=== PATIENT | male | born 1960 | race Caucasian/White ===

== ENCOUNTER 2020-05-11 10:23 | Outpatient (REF) | payer OTHER, SELFPAY | END 2020-05-11 10:24 | disposition home or self-care (01) | LOC: HO.LAB 10:23 | PROVIDERS: Visit Provider Internal Medicine | DX: Z20.828 Contact with and (suspected) exposure to other viral communicable diseases (principal) | CPT/HCPCS: 87635 ==

== ENCOUNTER 2020-06-14 16:00 | Emergency (ER) | payer OTHER, SELFPAY ==
--- NOTE | 2020-06-14 08:04 | ECG_ITS ---
Test Reason : CHEST PAIN Blood Pressure : / mmHG Vent. Rate : 080 BPM Atrial Rate : 080 BPM P-R Int : 154 ms QRS Dur : 098 ms QT Int : 402 ms P-R-T Axes : 051 005 023 degrees QTc Int : 463 ms Normal sinus rhythm Normal ECG When compared with ECG of 13-MAR-2019 11:00, No significant change was found Referred By: Faisal Morgan Electronically Signed By:SORAYA RIGGS
[2020-06-14 16:06] VITALS: BP 126/78; PULSE 79; RESP 12; TEMP 36.8; O2SAT 94; BMI 27.8
--- NOTE | 2020-06-14 16:11 | PC.NURSE ---
EKG DONE AT 1607
--- NOTE | 2020-06-14 16:21 | ED.CHESTPAIN ---
HPI - Chest Pain General Chief Complaint: Chest Pain Stated Complaint: INTERMITTENT CP + SOB Time Seen by Provider: 06/14/20 16:21 History of Present Illness HPI narrative: 60-year-old male who presents to the emergency department for evaluation of chest pain and shortness of breath. Patient states he has been having chest pain for approximately 2 days. He points to his mid chest, left breast, left neck and left shoulder when asked to localize the pain. He states the pain is been constant for the past 2 days. He states that the pain is 9/10 at its worst. He has had associated shortness of breath and dyspnea on exertion. He denied fever, chills, cough. He states that he does have chronic back pain. He states that he had similar pain approximately 1 and half years prior was seen at [facility]. He states that he has followed up with a stripe matcher for this pain but does not know the etiology. Related Data Allergies Allergy/AdvReac Type Severity Reaction Status Date / Time No Known Allergies Allergy Verified 06/14/20 16:05 [No Known Allergies*] Review of Systems Review of Systems: Yes all other systems are reviewed and are negative Constitutional: Constitutional: Reports as per HPI Eyes: Eyes: Reports as per HPI ENT: Reports as per HPI Cardiovascular: Cardiovascular: Reports as per HPI Respiratory: Respiratory: Reports as per HPI Gastrointestinal: Gastrointestinal: Reports as per HPI Genitourinary: Genitourinary: Reports as per HPI Musculoskeletal: Musculoskeletal: Reports as per HPI Integumentary/Breasts: Skin/Breast: Reports as per HPI Neurologic: Reports as per HPI and Reports Abnormal speech present Psychiatric: Psychiatric: Reports as per HPI Allergic/Immunologic: Allergic/Immunologic: Reports as per HPI PMFSH Past Medical History Medical History Asthma Hypertension Social History Social History Smoking Status: Never smoker Use of substances other than those prescribed or required for medical reasons: No Advance Directives: No Advance Directives Information Provided: Yes Physical Exam Vital Signs: Vital Signs: Last Vital Signs Temp 98.2 F 06/14/20 16:06 Pulse 78 06/14/20 20:14 Resp 18 06/14/20 20:14 BP 131/85 06/14/20 20:14 Pulse Ox 98 06/14/20 20:14 Body Mass Index 27.8 Const: General: cooperative, no acute distress, alert and awake Orientation/consciousness: oriented to person and oriented to place Limitations: no limitations HENMT: Head: Yes normal to inspection, Yes normocephalic and Yes atraumatic Ears: external ears normal Face and sinus: Yes normal facial exam Mouth: Normal oral and palatal mucosa present Eyes: General: appearance normal, both eyes and all related structures Periorbital: periorbital findings normal Eyelids: Yes eyelids normal Conjunctivae: conjunctivae normal Sclerae: sclerae normal Corneas: corneas normal Pupils: Equal, round and reactive pupils present Direct Ophthalmoscopy: normal light reflex Neck: Neck: Yes normal visual inspection and Yes supple Lymphatic: no lymphadenopathy noted Chest: Chest palpation & inspection: normal inspection of the chest and other (Tenderness with palpation of the left chest) Resp: Effort & Inspection: normal respiratory effort, abnormal respiratory pattern, no audible wheezes and no respiratory distress Auscultation: clear to auscultation bilaterally, no crackles, no rales, no rhonchi and no wheezes Cardio: Rate: regular rate Rhythm: regular rhythm Heart sounds: S1 normal heart sound present, S2 normal heart sound present and Murmur heart sound present GI: Inspection: No distended Palpation (GI): Soft to palpation, nontender, no guarding and No hepatosplenomegaly present Auscultation: normal bowel sounds : General: Yes no CVA tenderness Back/Spine/Pelvis: Back: no CVA tenderness Skin: General skin exam: no rashes or lesions noted Lesions: no lesions Rashes: no rashes Wounds: no wounds Neuro: General: oriented to person and oriented to place Cranial nerves: Yes CN's II-XII intact bilaterally and Yes Equal, round and reactive pupils present Cognition (Neuro): normal cognition Speech: Abnormal speech present Motor exam (neuro): 5/5 motor strength present throughout Extrem: General: Yes normal to inspection, Yes full ROM, Yes no pedal edema and Yes no calf tenderness Psych: Appearance: grossly normal Mental Status: mental status grossly normal Speech and movement: Clear speech present Affect: normal affect Thought process: Normal thought process present Course Course Course Narrative: 60-year-old male with a history of hypertension hyperlipidemia, asthma, depression who presents to the emergency department for evaluation of 2 days of constant chest pain associated with shortness of breath and dyspnea on exertion. Physical examination did reveal tenderness with palpation of his chest wall otherwise was unremarkable. The patient's laboratory evaluation revealed a normal D-dimer. The patient had 2 troponins 3 hours apart which were not elevated. Chest x-ray revealed mild atelectasis but otherwise was unremarkable. The patient did have a negative COVID-19 test on 05/12/2020 therefore I doubt that this is related to the COVID-19 virus. The patient did receive Toradol 30 mg IV with complete resolution of his pain. While he was in the emergency department he did not complain of any recurrence of his pain. At this time I do not have a clear etiology for the patient's pain but given the fact that has been constant for 2 days with normal troponins I do not think that he has a cardiac cause. The pain is most likely musculoskeletal. The patient was advised to take ibuprofen and Tylenol for pain. He will need to follow-up with his doctor in 2 days for re-evaluation and I advised him to return emergency department if symptoms got worse or for development of symptoms that are concerning to him. MDM - Chest Pain Medical Records Data Attestation: I reviewed the patient's medical records. Lab Data Attestation: I reviewed the patient's lab results. Result diagrams: 06/14/20 17:34 06/14/20 17:34 Labs: Lab Results 06/14/20 06/14/20 06/14/20 Range/Units 17:34 17:34 17:34 WBC 7.3 (4.8-10.8) X10*3/uL RBC 4.59 L (4.60-5.80) X10*6/uL Hgb 13.8 L (14.0-18.0) g/dl Hct 40.6 L (42-52) % MCV 88.5 (80-98) fL MCH 30.1 (27.0-33.0) pg MCHC 34.0 (31.0-36.0) g/dl RDW 12.8 (11.0-16.0) % Plt Count 209 (160-400) X10*3/uL MPV 10.1 (9.4-12.4) fL Immature Gran % (Auto) 0.3 (0.0-0.4) % Neut % (Auto) 53.1 (45-73) % Lymph % (Auto) 25.4 (20-40) % [place] % (Auto) 14.7 H (2-11) % Eos % (Auto) 5.8 H (0-4) % Baso % (Auto) 0.7 (0-2) % Lymph # (Auto) 1.9 (1.2-4.9) X10*3/uL [place] # (Auto) 1.1 (0.1-1.2) X10*3/uL Eos # (Auto) 0.4 (0.0-0.4) X10*3/uL Baso # (Auto) 0.1 (0.0-0.2) X10*3/uL Abs Immat Gran (auto) 0.02 (0.00-0.03) X10*3/uL Absolute Neuts (auto) 3.9 (2.0-8.3) X10*3/uL Absolute Nucleated RBC 0.000 (0.0-0.012) X10*3/uL Nucleated RBC % (auto) 0.0 (0.0-0.2) /100WBC D-Dimer < 200 NG/ML Sodium 139 (135-145) mmol/L Potassium 3.4 (3.3-5.1) mmol/l Chloride 99 (96-108) mmol/L Carbon Dioxide 32 H (22-29) mmol/L Anion Gap 11 L (12-20) BUN 23 H (9-16) mg/dL Creatinine 0.94 (0.5-1.4) mg/dL Estim Creat Clear Calc 91.0 Estimated GFR > 60 Random Glucose 128 H (60-115) mg/dL Calcium 8.6 (8.4-10.2) mg/dL Total Bilirubin 0.6 (0.0-1.0) mg/dL Direct Bilirubin 0.2 (0.0-0.5) mg/dL AST 22 (5-37) U/L ALT 34 (0-40) U/L Alkaline Phosphatase 74 (39-117) U/L Troponin I High Sens (<3.5-35.0) ng/L Total Protein 6.8 (6.5-8.0) g/dL Albumin 4.0 (3.5-5.0) g/dL Lipase 20 (8-78) U/L Urine Color Urine Appearance Urine pH (5.0-8.0) Ur Specific [place] (1.005-1.025) Urine Protein (NEG-TRACE) MG/DL Urine Glucose (UA) (NEG) MG/DL Urine Ketones (NEG) MG/DL Urine Blood (NEG) Urine Nitrite (NEG) Ur Leukocyte Esterase (NEG) 06/14/20 06/14/20 06/14/20 Range/Units 17:34 20:18 20:23 WBC (4.8-10.8) X10*3/uL RBC (4.60-5.80) X10*6/uL Hgb (14.0-18.0) g/dl Hct (42-52) % MCV (80-98) fL MCH (27.0-33.0) pg MCHC (31.0-36.0) g/dl RDW (11.0-16.0) % Plt Count (160-400) X10*3/uL MPV (9.4-12.4) fL Immature Gran % (Auto) (0.0-0.4) % Neut % (Auto) (45-73) % Lymph % (Auto) (20-40) % [place] % (Auto) (2-11) % Eos % (Auto) (0-4) % Baso % (Auto) (0-2) % Lymph # (Auto) (1.2-4.9) X10*3/uL [place] # (Auto) (0.1-1.2) X10*3/uL Eos # (Auto) (0.0-0.4) X10*3/uL Baso # (Auto) (0.0-0.2) X10*3/uL Abs Immat Gran (auto) (0.00-0.03) X10*3/uL Absolute Neuts (auto) (2.0-8.3) X10*3/uL Absolute Nucleated RBC (0.0-0.012) X10*3/uL Nucleated RBC % (auto) (0.0-0.2) /100WBC D-Dimer NG/ML Sodium (135-145) mmol/L Potassium (3.3-5.1) mmol/l Chloride (96-108) mmol/L Carbon Dioxide (22-29) mmol/L Anion Gap (12-20) BUN (9-16) mg/dL Creatinine (0.5-1.4) mg/dL Estim Creat Clear Calc Estimated GFR Random Glucose (60-115) mg/dL Calcium (8.4-10.2) mg/dL Total Bilirubin (0.0-1.0) mg/dL Direct Bilirubin (0.0-0.5) mg/dL AST (5-37) U/L ALT (0-40) U/L Alkaline Phosphatase (39-117) U/L Troponin I High Sens 5.5 4.7 (<3.5-35.0) ng/L Total Protein (6.5-8.0) g/dL Albumin (3.5-5.0) g/dL Lipase (8-78) U/L Urine Color YELLOW Urine Appearance CLEAR Urine pH 6.0 (5.0-8.0) Ur Specific [place] 1.025 (1.005-1.025) Urine Protein NEG (NEG-TRACE) MG/DL Urine Glucose (UA) NEG (NEG) MG/DL Urine Ketones NEG (NEG) MG/DL Urine Blood NEG (NEG) Urine Nitrite NEG (NEG) Ur Leukocyte Esterase NEG (NEG) ECG Data ECG #1: Attestation: I personally reviewed and interpreted this ECG as follows: ECG interpretation date: 06/14/20 ECG interpretation time: 16:07 Prior ECG tracings: not available for review Interpretation: Normal sinus rhythm with a rate of 80, normal IA, QRS and QTC intervals, Q-wave in lead 3 and AVF, no ST segment elevation, less than [address] segment depression V4 through V6 Discharge Plan Discharge Clinical Impression: Atypical chest pain Patient Disposition: Home, Self-Care Instructions: Chest Wall Pain (ED) Additional Instructions: Your blood work and chest x-ray were normal. Take ibuprofen 200 mg pills, 2 pills every 6 hours as needed for pain. Take Tylenol 500 mg pills, 2 pills every 4-6 hours as needed for pain. Follow-up with your doctor in 2 days for re-evaluation. Please return to the emergency department if her symptoms get worse or if you develop any new symptoms that are concerning to you. Referrals: Chun Michel MD [Primary Care Provider] - 2 days
--- NOTE | 2020-06-14 17:00 | XR_ITS ---
EXAMINATION: XR CHEST CLINICAL INFORMATION: Bilateral chest pain, history of pneumothorax. COMPARISON: 03/13/2019 chest radiographs, chest CT dated 06/10/2019. TECHNIQUE: 2 views of the chest were obtained. FINDINGS: Mild linear markings are seen in the right mid field as well as the lung bases. Postsurgical changes are seen in the right lung as well. No definitive infiltrate or pleural effusion is seen. The heart and mediastinal structures are unremarkable. Multilevel healed right rib fractures are again noted. XR/XR chest 2V IMPRESSION: Mild linear atelectasis versus scarring bilaterally correlate with previous CT findings. No acute cardiopulmonary process.
[2020-06-14] MEDS: 0.9 % Sodium Chloride 1,000 ML 999 ML IVCONT (17:28)
[2020-06-14] MEDS: Ketorolac Tromethamine 30 MG/ML VIAL IVPUSH (17:28)
[2020-06-14 17:34] VITALS: BP 118/78; PULSE 75; RESP 16; O2SAT 94
[2020-06-14 17:40] LABS: MANUAL DIFF FLAG NO
[2020-06-14 17:44] LABS: Basophils Absolute Auto 0.1 X10*3/uL (0.0-0.2); Basophils Percent Auto 0.7 % (0-2); Eosinophils Absolute Auto 0.4 X10*3/uL (0.0-0.4); Eosinophils Percent Auto 5.8 % (0-4); Hematocrit 40.6 % (42-52); Hemoglobin 13.8 g/dl (14.0-18.0); Imm Gran Abs Auto 0.02 X10*3/uL (0.00-0.03); Imm Gran Pct Auto 0.3 % (0.0-0.4); Lymphocytes Absolute Auto 1.9 X10*3/uL (1.2-4.9); Lymphocytes Percent Auto 25.4 % (20-40); Mean Corpuscular Hemoglobin 30.1 pg (27.0-33.0); Mean Corpuscular Volume 88.5 fL (80-98); Mean Platelet Volume 10.1 fL (9.4-12.4); Monocytes Absolute Auto 1.1 X10*3/uL (0.1-1.2); Monocytes Percent Auto 14.7 % (2-11); Neutrophils Absolute Auto 3.9 X10*3/uL (2.0-8.3); Neutrophils Percent Auto 53.1 % (45-73); Platelet Count 209 X10*3/uL (160-400); Red Blood Count 4.59 X10*6/uL (4.60-5.80); Red Cell Distribution Width 12.8 % (11.0-16.0); White Blood Count 7.3 X10*3/uL (4.8-10.8)
[2020-06-14 17:52] LABS: D Dimer < 200 NG/ML
[2020-06-14 18:05] LABS: Alanine Aminotransferase 34 U/L (0-40); Alkaline Phosphatase 74 U/L (39-117); Anion Gap 11 (12-20); Aspartate Amino Transferase 22 U/L (5-37); Bilirubin Direct 0.2 mg/dL (0.0-0.5); Bilirubin Total 0.6 mg/dL (0.0-1.0); Blood Urea Nitrogen 23 mg/dL (9-16); Calcium 8.6 mg/dL (8.4-10.2); Carbon Dioxide 32 mmol/L (22-29); Chloride 99 mmol/L (96-108); Estimated Glomerular Filt Rate > 60; Glucose Random 128 mg/dL (60-115); Lipase 20 U/L (8-78); Potassium 3.4 mmol/l (3.3-5.1); Sodium 139 mmol/L (135-145); Total Protein 6.8 g/dL (6.5-8.0)
[2020-06-14 18:11] LABS: Troponin-I High Sensitivity 5.5 ng/L (<3.5-35.0)
[2020-06-14 20:14] VITALS: BP 131/85; PULSE 78; RESP 18; O2SAT 98
[2020-06-14 20:40] LABS: Glucose Urine UA NEG (NEG); Leukocyte Esterase Urine NEG (NEG); Nitrite Urine NEG (NEG); Specific Gravity - Urine 1.025 (1.005-1.025); Urine Blood NEG (NEG); Urine Ketones NEG (NEG); Urine Protein NEG (NEG-TRACE)
[2020-06-14 20:45] LABS: Appearance Urine CLEAR; Color Urine YELLOW
[2020-06-14 20:52] LABS: Troponin-I High Sensitivity 4.7 ng/L (<3.5-35.0)
== END 2020-06-14 21:37 | disposition home or self-care (01) ==
PROVIDERS: Emergency Provider Emergency Medicine Emergency Medical Services; PCP Internal Medicine
DX: R07.89 Other chest pain (principal); I10 Essential (primary) hypertension; J45.909 Unspecified asthma, uncomplicated
CPT/HCPCS: 36415; 71046; 80048; 80076; 81003; 83690; 84484; 85025; 85379; 93005; 96361; 96374; 99284; J1885

== ENCOUNTER → 2020-06-30 08:42 | Outpatient (BNVA) | payer OTHER, SELFPAY | PROVIDERS: PCP Internal Medicine; Visit Provider Nurse Practitioner | DX: Z13.89 Encounter for screening for other disorder (principal) | CPT/HCPCS: Q3014 ==

== ENCOUNTER 2020-07-18 10:02 | Outpatient (REF) | payer OTHER, SELFPAY ==
--- NOTE | 2020-07-18 | MR_ITS ---
EXAMINATION: MR LUMBAR SPINE WITHOUT AND WITH CONTRAST CLINICAL INFORMATION: Incontinence. Low back pain. COMPARISON: None TECHNIQUE: MRI of the lumbar spine was obtained using routine sequences with and without contrast. Intravenous contrast: Gadavist 8.5 mL FINDINGS: VERTEBRAL BODIES AND PARASPINAL STRUCTURES: There are chronic fatty marrow degenerative endplate changes, as on prior imaging. No compression fractures visible. Moderate loss of disc height evident at L5-S1 with disc desiccation. No suspicious abnormal enhancement is seen. There are minimal posterior subluxations at L3-L4 and L4-L5. The paraspinal soft tissues are unremarkable. CONUS MEDULLARIS AND CAUDA EQUINA: Normal, terminating at the level of L1. No lower cord signal abnormality is seen. The cauda equina nerve roots are normal. No pathologic intradural enhancement identified. There is no thickening or fatty infiltration of the filum terminale. SPINAL LEVELS: L1-L2: Minimal anterior disc bulge and endplate spurring which is stable. No central canal stenosis or foraminal narrowing. L2-L3: Well-hydrated normal appearance of the disc. Patent central canal and foramina. L3-L4: Mild retrosubluxation and stable central disc protrusion with mild impression upon the ventral thecal sac. No central canal stenosis. Underlying disc bulge without foraminal encroachment. L4-L5: Mild retrosubluxation and disc bulge again evident without central canal stenosis. Mild left foraminal narrowing. Epidural lipomatosis at the L4-L5 level continues to [id number] distort the thecal sac. L5-S1: Moderate loss of disc height with degenerative endplate changes. Diffuse disc bulge and facet arthropathy without central canal stenosis. Stable [id number] foraminal narrowing with bulging disc and endplate spurring contacting the extraforaminal L5 nerve roots. Epidural lipomatosis again evident. Engorgement of the ventral epidural basivertebral venous plexus also again evident with impression upon the thecal sac. MR/MR lumbar spine wo/w con IMPRESSION: Stable moderate disc degeneration at L5-S1. Engorgement of the ventral epidural venous plexus mildly impresses upon the thecal sac, as on prior imaging. Epidural lipomatosis also continues to moderately distort the thecal sac. Moderate foraminal narrowing with endplate spurring and bulging disc abutting the extraforaminal L5 nerve roots. Stable retrosubluxation and central disc protrusion at L3-L4. Milder degenerative changes at remaining levels.
== END 2020-07-18 10:03 | disposition home or self-care (01) ==
LOC: HO.MRI 10:02
PROVIDERS: Visit Provider Internal Medicine
DX: M54.5 Low back pain (principal); N39.490 Overflow incontinence; R15.9 Full incontinence of feces
CPT/HCPCS: 72158; A9585

== ENCOUNTER 2020-07-27 10:46 | Day surgery (SDC) | payer OTHER, SELFPAY ==
[2020-07-25 10:38] VITALS: BMI 26.5
--- NOTE | 2020-07-26 08:50 | HO.ANESPROP2 ---
Documented by User: Tammi Gaxiola 07/26/20 08:56 HPI - Anesthesia Eval Consult details Narrative: 60yo M for Colonoscopy [facility], [facility] Past Medical History Medical History (Updated 07/26/20 @ 08:51 by Tammi Gaxiola) Anxiety Arthritis Asthma Back pain Bipolar 1 disorder Depression Diabetes Elevated cholesterol GERD (gastroesophageal reflux disease) Hypertension Tension pneumothorax, spontaneous Surgical History Surgical History (Updated 07/25/20 @ 10:37 by Verna Santana) History of lung surgery Hx of colonoscopy Hx of hernia repair Hx of tracheostomy Social History Social History (Updated 07/25/20 @ 10:38 by Verna Santana) Smoking Status: Never smoker Advance Directives: No Advance Directives Information Provided: No Advance Directives on File: No Meds Allergies Allergy/AdvReac Type Severity Reaction Status Date / Time No Known Allergies Allergy Verified 07/25/20 10:29 [No Known Allergies*] Home Medications Medication Instructions Recorded Confirmed Type albuterol sulfate 1 amp INHALATION TID PRN 07/25/20 07/25/20 History albuterol sulfate 2 puff PO Q4-6H PRN 07/25/20 07/25/20 History amitriptyline 1 tab PO BEDTIME 07/25/20 07/25/20 History aspirin 1 tab PO QAM 07/25/20 07/25/20 History atorvastatin 1 tab PO BEDTIME 07/25/20 07/25/20 History duloxetine 1 cap PO QAM 07/25/20 07/25/20 History fluticasone propion-salmeterol 1 puff INHALATION BID 07/25/20 07/25/20 History gabapentin 1 tab PO BID 07/25/20 07/25/20 History hydrochlorothiazide 1 tab PO QAM 07/25/20 07/25/20 History losartan 1 tab PO DAILY 07/25/20 07/27/20 History omeprazole 1 cap PO BID 07/25/20 07/25/20 History sildenafil [Viagra] 1 tab PO DAILY PRN 07/25/20 07/25/20 History tramadol 1 tab PO Q8H PRN 07/25/20 07/25/20 History umeclidinium [Incruse Ellipta] 1 puff PO DAILY 07/25/20 07/25/20 History Exam Exam Date and Time: July 26, 2020 0850 Height,Weight and Vital Signs: Height 5 ft 10 in Weight 83.915 kg Narrative Narrative: 06/14/20 XR chest 2V IMPRESSION: Mild linear atelectasis versus scarring bilaterally correlate with previous CT findings. No acute cardiopulmonary process.. EKG 06/14/20: NSR Assessment and Plan Assessment Anesthesia Assessment: Chart Reviewed Documented by User: Marni Nuñez 07/27/20 12:11 PMF Past Medical History Medical History (Updated 07/26/20 @ 08:51 by Tammi Gaxiola) Anxiety Arthritis Asthma Back pain Bipolar 1 disorder Depression Diabetes Elevated cholesterol GERD (gastroesophageal reflux disease) Hypertension Tension pneumothorax, spontaneous Family History Family history of problems with anesthesia: No Surgical History Surgical History (Updated 07/25/20 @ 10:37 by Verna Santana) History of lung surgery Hx of colonoscopy Hx of hernia repair Hx of tracheostomy History of Problems with Anesthesia: No Social History Social History (Updated 07/25/20 @ 10:38 by Verna Santana) Smoking Status: Never smoker Advance Directives: No Advance Directives Information Provided: No Advance Directives on File: No Meds Allergies Allergy/AdvReac Type Severity Reaction Status Date / Time No Known Allergies Allergy Verified 07/25/20 10:29 [No Known Allergies*] Home Medications Medication Instructions Recorded Confirmed Type albuterol sulfate 1 amp INHALATION TID PRN 07/25/20 07/25/20 History albuterol sulfate 2 puff PO Q4-6H PRN 07/25/20 07/25/20 History amitriptyline 1 tab PO BEDTIME 07/25/20 07/25/20 History aspirin 1 tab PO QAM 07/25/20 07/25/20 History atorvastatin 1 tab PO BEDTIME 07/25/20 07/25/20 History duloxetine 1 cap PO QAM 07/25/20 07/25/20 History fluticasone propion-salmeterol 1 puff INHALATION BID 07/25/20 07/25/20 History gabapentin 1 tab PO BID 07/25/20 07/25/20 History hydrochlorothiazide 1 tab PO QAM 07/25/20 07/25/20 History losartan 1 tab PO DAILY 07/25/20 07/27/20 History omeprazole 1 cap PO BID 07/25/20 07/25/20 History sildenafil [Viagra] 1 tab PO DAILY PRN 07/25/20 07/25/20 History tramadol 1 tab PO Q8H PRN 07/25/20 07/25/20 History umeclidinium [Incruse Ellipta] 1 puff PO DAILY 07/25/20 07/25/20 History Exam Height,Weight and Vital Signs: Vital Signs Temp Pulse Resp BP Pulse Ox 07/27/20 11:09 98.8 F 102 H 16 166/97 H 96 Pertinent Lab Results Pertinent Lab Results: Lab Results 07/27/20 Range/Units 11:18 POC Glucose 123 H (60-115) mg/dL Airway Mallampati Class: III TM Dist: >3cm Neck ROM: Full Partial: Upper Heart: RRR Lungs: CTAB Assessment and Plan Assessment Anesthesia Assessment: Anesthesia Plan Discussed and Chart Reviewed Final Anesthetic Review NPO: Yes ASA Class: II Final Preanesthetic Review: No Changes in Pt Med Stat, Meds/Allgs Chart Reviewed, Consent Obtained/Reviewed and Anes Risks/Benef Reviewed Patient Risk: Intermediate Procedure Risk: Low Assessment/Block/Sedation in SS: Assess/Block/Sedation-SS Anesthetic Plan Anesthetic Plan: MAC: Disposition: Standard PACU
[2020-07-27 11:09] VITALS: BP 166/97; PULSE 102; RESP 16; TEMP 37.1; O2SAT 96
[2020-07-27 11:23] LABS: Glucose, Whole Blood 123 mg/dL (60-115)
[2020-07-27] MEDS: Lactated Ringers 1,000 ML 100 ML IVCONT (11:29)
--- NOTE | 2020-07-27 11:56 | MHC.SHP ---
Pre-Procedural Eval Section B Chief Complaint: full incontinence of feces Relevant Family History (Specify if Yes): No Relevant Social History: None Present Medications: see Short Stay Collaborative assessment Medical History: Significant History (Anxiety Arthritis Asthma Back pain Bipolar 1 disorder Depression Diabetes Elevated cholesterol GERD (gastroesophageal reflux disease) Hypertension Tension pneumothorax, spontaneous) History of Previous Operations: Relevant previous surgery/procedure and date(s) (History of lung surgery Hx of colonoscopy Hx of hernia repair Hx of tracheostomy) Allergies: Allergies Allergy/AdvReac Type Severity Reaction Status Date / Time No Known Allergies Allergy Verified 07/25/20 10:29 [No Known Allergies*] Review of Systems Sugical H&P ROS: Negative: Constitution, Cardiovascular, Respiratory, Neurological, Psychiatric, Hem-Onc, Allergic/Immunologic, Gastrointestinal, Genitourinary, Musculoskeletal, Integumentary, Endocrine and Eyes/Ears/Nose/Throat Exam Surgical H&P Exam: Normal: HEENT, Normal: Heart, Normal: Lungs, Normal: Extremities, Normal: Abdomen, Normal: Skin and Normal: Neurological Plan Diagnosis/Plan: Unchanged I have reviewed the history and physical and performed a pertinent physical examination on my patient. No changes have occurred unless specified.
--- NOTE | 2020-07-27 11:56 | PM.OP ---
Brief Operative Note Date of Service: 07/27/20 Pre-op diagnosis: fecal incontinence Post-op diagnosis: same Procedure: see op note Surgeon: David Brown MD Anesthesia: MAC Estimated blood loss (mL): 0 Condition: stable Disposition: PACU
--- NOTE | 2020-07-27 11:57 | W.PM.OPN ---
Operative Note Operative Note Date of Service: 07/27/20 Narrative: Operative Information Procedure Description: Colonoscopy COLONOSCOPY Instrument: Olympus variable stiffness adult scope 190L Colonoscopy Monitoring: Vital signs and clinical assessment, continuous EKG monitoring, Pulse oximetry, Carbon Dioxide monitoring and blood pressure monitoring were done throughout the procedure. Colon withdrawal time was 13 minutes. Procedure: The patient was placed in the left lateral decubitis position and pre-procedure medications were administered. After a digital rectal examination of the ano-rectum, the video colonoscope was inserted into the rectum and advanced through the colon to the cecum/TI. The colonoscope was slowly withdrawn in a retrograde panoramic fashion and the colon mucosa was carefully examined including a retroflexed view of the rectum. Findings and interventions are described below. Procedure Difficulty:easy Findings: RECTAL exam: slightly lax anal tone, good push but squeeze reduced, prostate was enlarged but smooth to palpation. Terminal Ileum-normal Cecum:normal Ascending Colon: normal Transverse Colon -normal Descending Colon:normal Sigmoid Colon: normal Rectum: Retroflexion with small internal hemorrhoids, grade I, x 3sessile polyps, removed with forceps 4-6 mm, another polyp about 8-10 mm with velvety appearance removed with cold snare Anorectum - normal Colon preparation: [place] Bowel Preparation Scale Right colon; 2 Transverse colon: 3 Left colon; 3 (0 = Unprepared colon segment with mucosa not seen due to solid stool that cannot be cleared. 1 = Portion of mucosa of the colon segment seen, but other areas of the colon segment not well seen due to staining, residual stool and/or opaque liquid. 2 = Minor amount of residual staining, small fragments of stool and/or opaque liquid, but mucosa of colon segment seen well. 3 = Entire mucosa of colon segment seen well with no residual staining, small fragments of stool or opaque liquid) Impression and Post Procedure Diagnosis: polyps internal hemorrhoids Plan: High fiber diet leaflet Avoid straining at stool, epsom salts and sitz bath, anusol supps or cream Repeat Colonoscopy in 5 years if adenomatous, 10 yrs if hyperplastic or earlier if clinically indicated refer [facility] colorectal surgery for consideration of spinal stimulator and manometry testing Above findings were reviewed with the patient and relevant handouts were provided if indicated.
[2020-07-27 12:45] VITALS: BP 115/78; PULSE 80; RESP 16; TEMP 36.2; O2SAT 98
[2020-07-27 13:00] VITALS: BP 138/99; PULSE 78; RESP 17; TEMP 36.4; O2SAT 99
--- NOTE | 2020-07-27 13:34 | HO.POSTANES ---
Post Anesthesia Evaluation Post Anesthesia Evaluation Vital Signs: Vital Signs Temp Pulse Resp BP Pulse Ox 07/27/20 13:00 97.5 F 78 17 138/99 H 99 07/27/20 12:45 97.2 F 80 16 115/78 98 07/27/20 11:09 98.8 F 102 H 16 166/97 H 96 Anesthesia: Monitored Mental Status: Awake Pain Control: Satisfactory Nausea/Vomiting: None Hydration: Adequate Anesthesia-Related Issues: No Anes. Related Issues
== END 2020-07-27 13:29 | disposition home or self-care (01) ==
PROVIDERS: PCP Internal Medicine; Visit Provider Internal Medicine Gastroenterology
PROC: 0DJD8ZZ Inspection of Lower Intestinal Tract, Via Natural or Artificial Opening Endoscopic (ICD-10-PCS; CPT 45378; principal; 2020-07-27 12:10)
DX: R15.9 Full incontinence of feces (principal); Z86.010 Personal history of colon polyps; Z80.0 Family history of malignant neoplasm of digestive organs; D12.8 Benign neoplasm of rectum; K62.1 Rectal polyp; K64.0 First degree hemorrhoids; N40.0 Benign prostatic hyperplasia without lower urinary tract symptoms; Z80.42 Family history of malignant neoplasm of prostate; K21.9 Gastro-esophageal reflux disease without esophagitis; I10 Essential (primary) hypertension; E11.9 Type 2 diabetes mellitus without complications; F31.9 Bipolar disorder, unspecified; J45.909 Unspecified asthma, uncomplicated; Z79.51 Long term (current) use of inhaled steroids; Z79.899 Other long term (current) drug therapy
CPT/HCPCS: 45385; 45380; 82947; 88305

== ENCOUNTER → 2020-07-29 12:49 | Outpatient (BNVA) | payer OTHER, SELFPAY | PROVIDERS: PCP Internal Medicine; Visit Provider Urology | DX: N40.1 Benign prostatic hyperplasia with lower urinary tract symptoms (principal); R35.1 Nocturia | CPT/HCPCS: 99202 ==

== ENCOUNTER → 2020-08-17 11:22 | Outpatient (BNVA) | payer OTHER, SELFPAY | PROVIDERS: PCP Internal Medicine; Visit Provider Nurse Practitioner | DX: Z13.89 Encounter for screening for other disorder (principal) | CPT/HCPCS: Q3014 ==

== ENCOUNTER 2020-09-01 12:20 | Outpatient (REF) | payer OTHER, SELFPAY | END 2020-09-01 12:21 | disposition home or self-care (01) | LOC: HO.LAB 12:20 | PROVIDERS: Visit Provider Internal Medicine | DX: Z20.822 Contact with and (suspected) exposure to COVID-19 (principal) | CPT/HCPCS: 36415; C9803; U0003; U0005 ==

== ENCOUNTER → 2020-09-23 15:27 | Outpatient (BNVA) | payer OTHER, SELFPAY | PROVIDERS: Visit Provider Urology | DX: Z13.89 Encounter for screening for other disorder (principal) | CPT/HCPCS: Q3014 ==

== ENCOUNTER → 2021-02-16 15:01 | Outpatient (BNVA) | payer OTHER, SELFPAY | PROVIDERS: PCP Internal Medicine; Visit Provider Nurse Practitioner | DX: K58.9 Irritable bowel syndrome, unspecified (principal); R15.9 Full incontinence of feces; D12.6 Benign neoplasm of colon, unspecified | CPT/HCPCS: Q3014 ==

== ENCOUNTER 2021-03-27 22:51 | Inpatient (IN) | payer OTHER, SELFPAY ==
--- NOTE | ~2021-03-27 | CT_ITS ---
EXAMINATION: NONCONTRAST HEAD CT NONCONTRAST CERVICAL SPINE CT INDICATION INFORMATION: Fall COMPARISON: 02/24/2019 TECHNIQUE: Separate noncontrast CT examinations of the head and cervical spine were performed. Coronal head CT images and coronal and sagittal cervical spine images were created at the technologist workstation. DLP: 1372 mGy-cm DOSE LOWERING TECHNIQUES: This CT examination was performed using dose optimization techniques as appropriate, variously including the following: - Automated exposure control - Adjustment of mA and/or kV according to patient size (this includes techniques or standardized protocols for targeted exams were dose is matched to indication/reason for exam; i.e. extremities or head) - Use of iterative reconstruction technique FINDINGS: Head: There is no evidence of acute intracranial hemorrhage or territorial infarction. No abnormal mass-effect or midline shift is seen. Deng to white matter differentiation is well preserved. No extra-axial fluid collections are identified. The ventricles are normal in size. Redemonstrated chronic lacunar infarct in the left basal ganglia. The osseous structures and soft tissues are normal. The mastoid air cells and visualized portions of the paranasal sinuses are well-aerated. Cervical spine: There is anatomic alignment of the vertebral bodies and posterior elements. Vertebral body heights are maintained. There is mild to moderate disc space narrowing throughout the cervical spine. Prominent disc osteophyte complexes are noted at C3-C4 and C4-C5. There is multilevel endplate irregularity and osteophyte formation. Scattered moderate facet arthropathy noted. No evidence of acute fracture. No prevertebral soft tissue swelling. There is emphysema the right lung apex. The thyroid gland is unremarkable. CT/CT cervical spine wo con IMPRESSION: 1. No acute findings identified in the head or cervical spine. 2. Degenerative changes of the cervical spine as described above.
--- NOTE | ~2021-03-27 | US_ITS ---
EXAMINATION: US EXTRACRANIAL CAROTID DUPLEX, BILATERAL CLINICAL INFORMATION: Syncope COMPARISON: None TECHNIQUE: Real-time ultrasound and Doppler techniques (integrating B-mode 2-D vascular images, Doppler spectral analysis and color-flow Doppler imaging) were utilized to interrogate the extracranial carotid arteries, the vertebral arteries and proximal subclavian arteries bilaterally. The degree of stenosis is determined by criteria similar to NASCET. FINDINGS: Right Side: 1. There is no significant atherosclerotic plaque seen in the bifurcation/proximal ICA region. 2. The common carotid artery PSV proximally is 71 cm/s and distally 82 cm/s. 3. The proximal internal carotid artery velocities are 67 cm/s systolic and 30 cm/s diastolic. 4. The proximal external carotid artery PSV is 98 cm/s. 5. The vertebral artery shows antegrade flow. 6. The subclavian artery waveforms are normal. Left Side: 1. There is no significant atherosclerotic plaque seen in the bifurcation/proximal ICA region. 2. The common carotid artery PSV proximally is 79 cm/s and distally 82 cm/s. 3. The proximal internal carotid artery velocities are 84 cm/s systolic and 38 cm/s diastolic. 4. The proximal external carotid artery PSV is 92 cm/s. 5. The vertebral artery shows antegrade flow. 6. The subclavian artery waveforms are normal. US/US carotid duplex BI IMPRESSION: 1. RIGHT: Normal right internal carotid artery without atherosclerotic plaque or hemodynamically significant stenosis. 2. LEFT: Normal left internal carotid artery without atherosclerotic plaque or hemodynamically significant stenosis.
[2021-03-27 23:17] VITALS: BP 90/50; PULSE 100; PULSE 105; RESP 20; TEMP 37; O2SAT 97; BMI 27.2
[2021-03-27] MEDS: 0.9 % Sodium Chloride 1,000 ML 999 ML IV (23:55)
--- NOTE | 2021-03-27 23:55 | ECG_ITS ---
Test Reason : FALL Blood Pressure : / mmHG Vent. Rate : 083 BPM Atrial Rate : 083 BPM P-R Int : 160 ms QRS Dur : 096 ms QT Int : 402 ms P-R-T Axes : 065 021 039 degrees QTc Int : 472 ms Normal sinus rhythm Normal ECG When compared with ECG of 14-JUN-2020 16:07, No significant change was found Referred By: Nain Morales Electronically Signed By:DAVE GOODEN
--- NOTE | 2021-03-27 23:57 | ED.GENADULT ---
HPI - General Adult General Chief complaint: Fall Stated complaint: fall ? syncope Time Seen by Provider: 03/27/21 23:38 Source: patient Mode of arrival: ambulatory Limitations: no limitations History of Present Illness HPI narrative: Patient presents to ED with for a syncopal episode. Patient states he was walking to the to the kitchen to drink water. Patient states when he released the Fridge and took the water he woke up and he was on the floor. Patient states this has never happened before. Patient denies having any headache, chest pain, shortness of breath, abdominal pain before falling to the ground. Patient states compliant with his medications. Patient denies taking any extra of his meds. Related Data Home Medications Medication Instructions Recorded Confirmed albuterol sulfate 1 amp INHALATION TID PRN 07/25/20 07/25/20 albuterol sulfate 90 mcg/actuation 2 puff PO Q4-6H PRN 07/25/20 07/25/20 aerosol inhaler amitriptyline 100 mg tablet 1 tab PO BEDTIME 07/25/20 07/25/20 aspirin 81 mg tablet,delayed 1 tab PO QAM 07/25/20 07/25/20 release atorvastatin 40 mg tablet 1 tab PO BEDTIME 07/25/20 07/25/20 duloxetine 30 mg capsule,delayed 1 cap PO QAM 07/25/20 07/25/20 release fluticasone 250 mcg-salmeterol 50 1 puff INHALATION BID 07/25/20 07/25/20 mcg/dose blistr powdr for inhalation gabapentin 800 mg tablet 1 tab PO BID 07/25/20 07/25/20 hydrochlorothiazide 12.5 mg tablet 1 tab PO QAM 07/25/20 07/25/20 losartan 50 mg tablet 1 tab PO DAILY 07/25/20 07/27/20 omeprazole 40 mg capsule,delayed 1 cap PO BID 07/25/20 07/25/20 release sildenafil 100 mg tablet (Viagra) 1 tab PO DAILY PRN 07/25/20 07/25/20 tramadol 50 mg tablet 1 tab PO Q8H PRN 07/25/20 07/25/20 umeclidinium 62.5 mcg/actuation 1 puff PO DAILY 07/25/20 07/25/20 blister powder for inhalation (Incruse Ellipta) Previous Rx's Medication Instructions Recorded terazosin 5 mg capsule 5 mg PO BEDTIME 90 Days #90 cap 09/23/20 dicyclomine 20 mg tablet 20 mg PO QID 30 Days #120 tab 02/16/21 Allergies Allergy/AdvReac Type Severity Reaction Status Date / Time No Known Allergies Allergy Verified 02/16/21 15:03 [No Known Allergies*] Review of Systems Review of Systems: Yes all other systems are reviewed and are negative Constitutional: Constitutional: Reports as per HPI and Reports no additional constitutional complaints Eyes: Eyes: Reports as per HPI and Reports no additional eye complaints ENT: Reports system reviewed and no additional complaints, except as documented and Reports as per HPI Cardiovascular: Cardiovascular: Reports as per HPI and Reports no additional cardiovascular complaints Comments: Syncope Respiratory: Respiratory: Reports as per HPI and Reports no additional respiratory complaints Gastrointestinal: Gastrointestinal: Reports as per HPI and Reports no additional gastrointestinal complaints Genitourinary: Genitourinary: Reports no additional male genitourinary complaints and Reports as per HPI Musculoskeletal: Musculoskeletal: Reports no additional musculoskeletal complaints and Reports as per HPI Integumentary/Breasts: Skin/Breast: Reports system reviewed and no additional complaints, except as docu and Reports as per HPI Neurologic: Reports system reviewed and no additional complaints, except as documented and Reports as per HPI Psychiatric: Psychiatric: Reports no additional psychiatric complaints and Reports as per HPI PMF Past Medical History Medical History (Updated 03/28/21 @ 02:55 by INDIA Ahn) Anxiety Arthritis Asthma Back pain Bipolar 1 disorder Depression Diabetes Elevated cholesterol GERD (gastroesophageal reflux disease) Hypertension Tension pneumothorax, spontaneous Surgical History History of lung surgery Hx of colonoscopy Hx of hernia repair Hx of tracheostomy Family History Family History Mother Stomach cancer Brother Prostate cancer Brother Prostate cancer Social History Social History Alcohol intake: current Alcohol intake frequency: a few times a month Advance Directives: No Physical Exam Vital Signs: Vital Signs: Last Vital Signs Temp 98.6 F 03/27/21 23:17 Pulse 81 03/28/21 02:47 Resp 16 03/28/21 02:47 BP 134/90 H 03/28/21 02:47 Pulse Ox 96 03/28/21 02:47 Body Mass Index 27.2 Const: General: cooperative, healthy appearing, comfortable, no acute distress, well developed, alert and awake Orientation/consciousness: patient oriented x3 HENMT: Head: Yes normal to inspection, Yes No palpable skull fracture present, Yes normocephalic, Yes atraumatic and No abrasion Eyes: General: appearance normal, both eyes and all related structures Neck: Neck: Yes normal visual inspection, Yes full ROM, Yes no lymphadenopathy, Yes no meningeal signs, Yes trachea midline, Yes supple and No tender Chest: Chest palpation & inspection: normal inspection of the chest and normal palpation of entire chest wall Resp: Effort & Inspection: normal respiratory effort and able to speak in complete sentences Auscultation: clear to auscultation bilaterally Cardio: Jugular venous distension: no JVD Heart sounds: S1 normal heart sound present and S2 normal heart sound present GI: Inspection: Yes normal to inspection and No abdominal wall ecchymosis Palpation (GI): Soft to palpation, not firm, nontender, no guarding and not rigid : General: No CVA tenderness and Yes no CVA tenderness Back/Spine/Pelvis: Back: no CVA tenderness, No CVA tenderness and No back tenderness Skin: General skin exam: no rashes or lesions noted and elasticity normal Neuro: General: patient oriented x3, gait normal, no meningeal signs and CN's II-XI intact bilaterally Cranial nerves: Yes CN's II-XII intact bilaterally Extrem: General: Yes normal to inspection and Yes full ROM Psych: Appearance: grossly normal, well kempt and not disheveled Course Course Course Narrative: Patient history and physical exam indicates syncope. Patient have medical evaluation. Patient had EKG, labs, orthostatics ordered. Fluids ordered. Patient have head and CT scan ordered. Patient is in neck collar. Reevaluation(s) Reevaluation #1: EKG negative STEMI. Patient to be admitted for REJI syncope. Presently creatinine is elevated patient is in REJI. Patient have COVID swab. Orthostatics negative. Negative for any neuro deficits Time: 14:54 Medical Decision Making MDM Narrative Medical decision making narrative: Syncope. REJI Lab Data Result diagrams: 03/28/21 01:37 03/28/21 01:37 Labs: Lab Results 03/28/21 03/28/21 03/28/21 Range/Units 01:37 01:37 01:37 WBC 10.2 (4.8-10.8) X10*3/uL RBC 4.49 L (4.60-5.80) X10*6/uL Hgb 13.4 L (14.0-18.0) g/dl Hct 39.3 L (42-52) % MCV 87.5 (80-98) fL MCH 29.8 (27.0-33.0) pg MCHC 34.1 (31.0-36.0) g/dl RDW 12.8 (11.0-16.0) % Plt Count 239 (160-400) X10*3/uL MPV 9.9 (9.4-12.4) fL Immature Gran % (Auto) 0.3 (0.0-0.4) % Neut % (Auto) 73.2 H (45-73) % Lymph % (Auto) 13.2 L (20-40) % [place] % (Auto) 11.0 (2-11) % Eos % (Auto) 2.0 (0-4) % Baso % (Auto) 0.3 (0-2) % Lymph # (Auto) 1.3 (1.2-4.9) X10*3/uL [place] # (Auto) 1.1 (0.1-1.2) X10*3/uL Eos # (Auto) 0.2 (0.0-0.4) X10*3/uL Baso # (Auto) 0.0 (0.0-0.2) X10*3/uL Abs Immat Gran (auto) 0.03 (0.00-0.03) X10*3/uL Absolute Neuts (auto) 7.5 (2.0-8.3) X10*3/uL Absolute Nucleated RBC 0.000 (0.0-0.012) X10*3/uL Nucleated RBC % (auto) 0.0 (0.0-0.2) /100WBC PT 10.4 (9.9-13.0) SEC INR 0.9 (0.9-1.1) APTT 32.3 (24.1-38.0) SEC Sodium 138 (135-145) mmol/L Potassium 3.6 (3.3-5.1) mmol/L Chloride 100 (96-108) mmol/L Carbon Dioxide 30 H (22-29) mmol/L Anion Gap 12 (12-20) BUN 30 H (9-16) mg/dL Creatinine 1.72 H (0.5-1.4) mg/dL Estim Creat Clear Calc 45.9 Estimated GFR 40 Random Glucose 117 H (60-115) mg/dL Calcium 9.5 D (8.4-10.2) mg/dL Total Bilirubin 0.6 (0.0-1.0) mg/dL AST 14 (5-37) U/L ALT 14 (0-40) U/L Alkaline Phosphatase 83 (39-117) U/L Troponin I High Sens (<3.5-35.0) ng/L Total Protein 6.8 (6.5-8.0) g/dL Albumin 4.0 (3.5-5.0) g/dL 03/28/21 Range/Units 01:37 WBC (4.8-10.8) X10*3/uL RBC (4.60-5.80) X10*6/uL Hgb (14.0-18.0) g/dl Hct (42-52) % MCV (80-98) fL MCH (27.0-33.0) pg MCHC (31.0-36.0) g/dl RDW (11.0-16.0) % Plt Count (160-400) X10*3/uL MPV (9.4-12.4) fL Immature Gran % (Auto) (0.0-0.4) % Neut % (Auto) (45-73) % Lymph % (Auto) (20-40) % [place] % (Auto) (2-11) % Eos % (Auto) (0-4) % Baso % (Auto) (0-2) % Lymph # (Auto) (1.2-4.9) X10*3/uL [place] # (Auto) (0.1-1.2) X10*3/uL Eos # (Auto) (0.0-0.4) X10*3/uL Baso # (Auto) (0.0-0.2) X10*3/uL Abs Immat Gran (auto) (0.00-0.03) X10*3/uL Absolute Neuts (auto) (2.0-8.3) X10*3/uL Absolute Nucleated RBC (0.0-0.012) X10*3/uL Nucleated RBC % (auto) (0.0-0.2) /100WBC PT (9.9-13.0) SEC INR (0.9-1.1) APTT (24.1-38.0) SEC Sodium (135-145) mmol/L Potassium (3.3-5.1) mmol/L Chloride (96-108) mmol/L Carbon Dioxide (22-29) mmol/L Anion Gap (12-20) BUN (9-16) mg/dL Creatinine (0.5-1.4) mg/dL Estim Creat Clear Calc Estimated GFR Random Glucose (60-115) mg/dL Calcium (8.4-10.2) mg/dL Total Bilirubin (0.0-1.0) mg/dL AST (5-37) U/L ALT (0-40) U/L Alkaline Phosphatase (39-117) U/L Troponin I High Sens < 3.5 (<3.5-35.0) ng/L Total Protein (6.5-8.0) g/dL Albumin (3.5-5.0) g/dL ECG Data Interpretation: Normal sinus rhythm. Normal EKG. Ventricular rate 83. Pr interval 160. QRS 96. QTC 472. Negative STEMI Discharge Plan Discharge Clinical Impression: Acute renal failure, Syncope Patient Disposition: Admitted As Inpatient
[2021-03-28] VITALS (14 sets, daily range): BP systolic 113–176; BP diastolic 73–98; PULSE 71–93; RESP 12–20; TEMP 36.2–36.8; O2SAT 92–98; BMI 28.0
[2021-03-28] MEDS: 0.9 % Sodium Chloride 1,000 ML 999 ML IV (00:51)
[2021-03-28 01:42] LABS: MANUAL DIFF FLAG NO
[2021-03-28 01:43] LABS: Basophils Percent Auto 0.3 % (0-2); Eosinophils Absolute Auto 0.2 X10*3/uL (0.0-0.4); Hematocrit 39.3 % (42-52); Hemoglobin 13.4 g/dl (14.0-18.0); Imm Gran Abs Auto 0.03 X10*3/uL (0.00-0.03); Imm Gran Pct Auto 0.3 % (0.0-0.4); Lymphocytes Absolute Auto 1.3 X10*3/uL (1.2-4.9); Lymphocytes Percent Auto 13.2 % (20-40); Mean Corpuscular HGB Conc 34.1 g/dl (31.0-36.0); Mean Corpuscular Hemoglobin 29.8 pg (27.0-33.0); Mean Corpuscular Volume 87.5 fL (80-98); Mean Platelet Volume 9.9 fL (9.4-12.4); Monocytes Absolute Auto 1.1 X10*3/uL (0.1-1.2); Neutrophils Absolute Auto 7.5 X10*3/uL (2.0-8.3); Neutrophils Percent Auto 73.2 % (45-73); Platelet Count 239 X10*3/uL (160-400); Red Blood Count 4.49 X10*6/uL (4.60-5.80); Red Cell Distribution Width 12.8 % (11.0-16.0); White Blood Count 10.2 X10*3/uL (4.8-10.8)
[2021-03-28 01:51] LABS: INTERNATIONAL NORM RATIO 0.9 (0.9-1.1); Prothrombin Time 10.4 SEC (9.9-13.0)
[2021-03-28 01:53] LABS: Partial Thromboplastin Time 32.3 SEC (24.1-38.0)
[2021-03-28 01:58] LABS: Alanine Aminotransferase 14 U/L (0-40); Alkaline Phosphatase 83 U/L (39-117); Anion Gap 12 (12-20); Aspartate Amino Transferase 14 U/L (5-37); Bilirubin Total 0.6 mg/dL (0.0-1.0); Blood Urea Nitrogen 30 mg/dL (9-16); Calcium 9.5 mg/dL (8.4-10.2); Carbon Dioxide 30 mmol/L (22-29); Chloride 100 mmol/L (96-108); Creatinine Clr Calc Pharmacy 45.9; Estimated Glomerular Filt Rate 40; Glucose Random 117 mg/dL (60-115); Potassium 3.6 mmol/L (3.3-5.1); Sodium 138 mmol/L (135-145); Total Protein 6.8 g/dL (6.5-8.0)
[2021-03-28 02:04] LABS: Troponin-I High Sensitivity < 3.5 ng/L (<3.5-35.0)
--- NOTE | 2021-03-28 02:59 | P.HPHOSP_ITS ---
History of Present Illness Date of Service: 03/28/21 Chief Complaint: Syncope 60-year-old male with a past medical history of hypertension, hyperlipidemia, GERD, BPH, irritable bowel syndrome, anxiety, depression presented to the hospital with a chief complaint of syncope. Patient reported that he was walking and suddenly fell, lost consciousness; denies any stool or urinary incontinence; denies any urinary incontinence. Denies any headaches neck pain back pain or hip pain. Denies any chest pain palpitations lightheadedness or dizziness. Denies any prior similar episodes Denies any fever chills cough. Denies any GI or symptoms. Patient mentioned that he has been hydrating enough. Review of all other systems is negative except mentioned above ER course: Per ER team patient exam was nonfocal; CT head and CT cervical spine showed no acute findings. On labs noted to elevated creatinine from baseline 0.9-1.7. Given IV fluids for REJI. Troponin negative. EKG nonischemic. Orthostatics were negative. Admitted to the hospital for further management [facility] Medical History (Updated 03/28/21 @ 02:55 by INDIA Ahn) Anxiety Arthritis Asthma Back pain Bipolar 1 disorder Depression Diabetes Elevated cholesterol GERD (gastroesophageal reflux disease) Hypertension Tension pneumothorax, spontaneous Family History Mother Stomach cancer Brother Prostate cancer Brother Prostate cancer Surgical History History of lung surgery Hx of colonoscopy Hx of hernia repair Hx of tracheostomy Social History Alcohol intake: current Alcohol intake frequency: a few times a month Advance Directives: No Meds Allergies Allergy/AdvReac Type Severity Reaction Status Date / Time No Known Allergies Allergy Verified 02/16/21 15:03 [No Known Allergies*] Active Medications: Current Medications Generic Name Dose Route Start Last Admin Trade Name Freq PRN Reason Stop Dose Admin Aspirin 81 mg 03/28/21 09:00 Aspirin Enteric Coated 81 Mg Tablet. PO DAILY AMY Atorvastatin Calcium 40 mg 03/28/21 21:00 Atorvastatin Calcium 40 Mg Tablet PO BEDTIME [facility] Duloxetine HCl 60 mg 03/28/21 09:00 Duloxetine Hcl 60 Mg Capsule. PO DAILY [facility] Pharmacy Consult 1 each 03/28/21 02:53 Consult Rx Perform Med Rec MISCELLANE ONCE PRN Consult order Home Medications Medication Instructions Recorded Confirmed Last Taken Type albuterol sulfate 1 amp INHALATION TID PRN 07/25/20 07/25/20 Unknown History albuterol sulfate 90 mcg/actuation 2 puff PO Q4-6H PRN 07/25/20 07/25/20 Unknown History aerosol inhaler amitriptyline 100 mg tablet 1 tab PO BEDTIME 07/25/20 07/25/20 Unknown History aspirin 81 mg tablet,delayed 1 tab PO QAM 07/25/20 07/25/20 Unknown History release atorvastatin 40 mg tablet 1 tab PO BEDTIME 07/25/20 07/25/20 Unknown History duloxetine 30 mg capsule,delayed 1 cap PO QAM 07/25/20 07/25/20 Unknown History release fluticasone 250 mcg-salmeterol 50 1 puff INHALATION BID 07/25/20 07/25/20 Unknown History mcg/dose blistr powdr for inhalation gabapentin 800 mg tablet 1 tab PO BID 07/25/20 07/25/20 Unknown History hydrochlorothiazide 12.5 mg tablet 1 tab PO QAM 07/25/20 07/25/20 Unknown History losartan 50 mg tablet 1 tab PO DAILY 07/25/20 07/27/20 07/27/20 History omeprazole 40 mg capsule,delayed 1 cap PO BID 07/25/20 07/25/20 Unknown History release sildenafil 100 mg tablet (Viagra) 1 tab PO DAILY PRN 07/25/20 07/25/20 Unknown History tramadol 50 mg tablet 1 tab PO Q8H PRN 07/25/20 07/25/20 Unknown History umeclidinium 62.5 mcg/actuation 1 puff PO DAILY 07/25/20 07/25/20 Unknown History blister powder for inhalation (Incruse Ellipta) Physical Exam 2 Vital Signs and Narrative: Vital Signs: Last Vital Signs Temp 98.6 F 03/27/21 23:17 Pulse 81 03/28/21 02:47 Resp 16 03/28/21 02:47 BP 134/90 H 03/28/21 02:47 Pulse Ox 96 03/28/21 02:47 Body Mass Index 27.2 Gen: Appears be in no acute distress HEENT: NCAT, Moist mucosa. Pulmonary: Vesicular breath sounds, fair air entry CVS: Normal S1-S2 Abdomen: BS+, Soft, Nontender Extremities: Warm well perfused Neuro: Alert and awake. Grossly nonfocal Results Labs CBC and Chem 7: 03/28/21 01:37 03/28/21 01:37 Labs: Laboratory Results - last 24 hr 03/28/21 03/28/21 03/28/21 01:37 01:37 01:37 MCV 87.5 MCH 29.8 MCHC 34.1 RDW 12.8 Plt Count 239 MPV 9.9 Immature Gran % (Auto) 0.3 Neut % (Auto) 73.2 H Lymph % (Auto) 13.2 L [place] % (Auto) 11.0 Eos % (Auto) 2.0 Baso % (Auto) 0.3 Lymph # (Auto) 1.3 [place] # (Auto) 1.1 Eos # (Auto) 0.2 Baso # (Auto) 0.0 Abs Immat Gran (auto) 0.03 Absolute Neuts (auto) 7.5 Absolute Nucleated RBC 0.000 Nucleated RBC % (auto) 0.0 PT 10.4 INR 0.9 APTT 32.3 Anion Gap 12 Estim Creat Clear Calc 45.9 Estimated GFR 40 Random Glucose 117 H Calcium 9.5 D Total Bilirubin 0.6 AST 14 ALT 14 Alkaline Phosphatase 83 Troponin I High Sens Total Protein 6.8 Albumin 4.0 03/28/21 01:37 MCV MCH MCHC RDW Plt Count MPV Immature Gran % (Auto) Neut % (Auto) Lymph % (Auto) [place] % (Auto) Eos % (Auto) Baso % (Auto) Lymph # (Auto) [place] # (Auto) Eos # (Auto) Baso # (Auto) Abs Immat Gran (auto) Absolute Neuts (auto) Absolute Nucleated RBC Nucleated RBC % (auto) PT INR APTT Anion Gap Estim Creat Clear Calc Estimated GFR Random Glucose Calcium Total Bilirubin AST ALT Alkaline Phosphatase Troponin I High Sens < 3.5 Total Protein Albumin Imaging Radiologist's Impressions: Impressions Cervical Spine CT 03/28/21 00:01 IMPRESSION: 1. No acute findings identified in the head or cervical spine. 2. Degenerative changes of the cervical spine as described above. Head CT 03/28/21 00:01 IMPRESSION: 1. No acute findings identified in the head or cervical spine. 2. Degenerative changes of the cervical spine as described above. Assessment and Plan (1) Acute renal failure: Status: Acute (2) Syncope: Status: Acute 60-year-old male with a past medical history of hypertension, hyperlipidemia, GERD, BPH, irritable bowel syndrome, anxiety, depression presented to the hospital with a chief complaint of syncope. Syncope: Orthostatic vitals negative. Exam nonfocal. CT head negative. Telemetry. Cycle cardiac enzymes. Echocardiogram. Carotid duplex. REJI: Likely prerenal. Continue IV fluids. History of hypertension/hyperlipidemia: Continue home medications except for losartan and hydrochlorothiazide. History of BPH: Continue home dose Flomax, terazosin. All other chronic conditions, home medications will be continued DVT prophylaxis: SCD boots Code status: Full code Quality Stroke Does the patient have a stroke diagnosis?: No VTE Prior VTE?: No VTE Risk Level:: Medical - moderate - high VTE Device Contraindication: N/A - Device Ordered VTE Drug Contraindication: Treatment Not Indicated
[2021-03-28 03:37] LABS: COVID-19 Test Negative (Negative)
[2021-03-28] MEDS: 0.9 % Sodium Chloride 1,000 ML 100 ML IVCONT ×2 (05:36→15:16)
[2021-03-28] MEDS: Albuterol/Iprat 2.5/0.5MG 3 ML AMPUL.NEB INHALE ×2 (06:12→22:10)
[2021-03-28 07:40] LABS: MANUAL DIFF FLAG NO
[2021-03-28 07:43] LABS: Basophils Percent Auto 0.3 % (0-2); Eosinophils Absolute Auto 0.3 X10*3/uL (0.0-0.4); Eosinophils Percent Auto 2.9 % (0-4); Hematocrit 39.2 % (42-52); Hemoglobin 13.2 g/dl (14.0-18.0); Imm Gran Abs Auto 0.03 X10*3/uL (0.00-0.03); Imm Gran Pct Auto 0.3 % (0.0-0.4); Lymphocytes Absolute Auto 2.7 X10*3/uL (1.2-4.9); Lymphocytes Percent Auto 29.9 % (20-40); Mean Corpuscular HGB Conc 33.7 g/dl (31.0-36.0); Mean Corpuscular Volume 89.1 fL (80-98); Monocytes Absolute Auto 1.1 X10*3/uL (0.1-1.2); Monocytes Percent Auto 11.5 % (2-11); Neutrophils Absolute Auto 5.1 X10*3/uL (2.0-8.3); Neutrophils Percent Auto 55.1 % (45-73); Platelet Count 219 X10*3/uL (160-400); Red Cell Distribution Width 12.8 % (11.0-16.0); White Blood Count 9.2 X10*3/uL (4.8-10.8)
[2021-03-28 08:00] LABS: Alanine Aminotransferase 14 U/L (0-40); Albumin Level 3.7 g/dL (3.5-5.0); Alkaline Phosphatase 77 U/L (39-117); Anion Gap 10 (12-20); Aspartate Amino Transferase 14 U/L (5-37); Bilirubin Total 0.6 mg/dL (0.0-1.0); Blood Urea Nitrogen 25 mg/dL (9-16); Calcium 9.1 mg/dL (8.4-10.2); Carbon Dioxide 30 mmol/L (22-29); Chloride 104 mmol/L (96-108); Creatinine Clr Calc Pharmacy 58.1; Estimated Glomerular Filt Rate 53; Glucose Random 147 mg/dL (60-115); Potassium 3.4 mmol/L (3.3-5.1); Sodium 141 mmol/L (135-145); Total Protein 6.3 g/dL (6.5-8.0)
[2021-03-28 08:03] LABS: Troponin-I High Sensitivity < 3.5 ng/L (<3.5-35.0)
[2021-03-28] MEDS: Aspirin Enteric Coated 81 MG TABLET.DR PO (08:30)
[2021-03-28] MEDS: DULoxetine HCl 60 MG CAPSULE.DR PO (08:30)
[2021-03-28] MEDS: Omeprazole 40 MG CAPSULE.DR PO ×2 (08:30→16:16)
--- NOTE | 2021-03-28 09:52 | PHA.MEDREC ---
Pharmacy Consult ? Medication Reconciliation Pharmacy has reviewed the medication reconciliation from overnight. Rachel Christine, PharmD [phone]
[2021-03-28] MEDS: Gabapentin 400 MG CAPSULE 800 MG PO ×2 (13:39→21:41)
[2021-03-28] MEDS: traMADoL HCL 50 MG TABLET PO (13:39)
--- NOTE | 2021-03-28 15:01 | PC.NURSE ---
Admission Note Patient admitted from Ed to ISO unit for syncope and REJI at 1100. Patient is pleasant and asymptomatic. Denies Pain. Currently receiving fluids for REJI and on high fall risks precautions.
[2021-03-28] MEDS: 0.9 % Sodium Chloride Flush 3 ML SYRINGE IVFLUSH (16:16)
--- NOTE | 2021-03-28 18:28 | PC.NURSE ---
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 He is alert, rr even, speaks in full sentences, skin is pwdi, and he is in nad. He was able to get up tp wash himself at the bedside with minimal assist. Currently denies any complaints. Will continue to monitor.
[2021-03-28] MEDS: Tamsulosin HCL 0.4 MG CAPSULE PO (21:40)
[2021-03-28] MEDS: Doxazosin Mesylate 2 MG TABLET 4 MG PO (21:40)
[2021-03-28] MEDS: Amitriptyline HCl 50 MG TABLET 100 MG PO (21:41)
[2021-03-28] MEDS: Atorvastatin Calcium 40 MG TABLET PO (21:42)
[2021-03-29] MEDS: Gabapentin 400 MG CAPSULE 800 MG PO ×2 (03:41→09:39)
[2021-03-29 04:00] VITALS: BP 143/87; PULSE 72; RESP 12; TEMP 36.6; O2SAT 96
[2021-03-29] MEDS: Omeprazole 40 MG CAPSULE.DR PO (06:02)
[2021-03-29 07:21] LABS: Glucose, Whole Blood 95 mg/dL (60-115)
[2021-03-29 07:27] VITALS: BP 163/76; PULSE 70; RESP 18; TEMP 36.5; O2SAT 97
--- NOTE | 2021-03-29 08:39 | PM.DS ---
DS: Providers Provider Date of Service: 03/29/21 Date of admission: 03/28/21 02:58 Primary care physician: Chun Michel MD DS: Diagnosis Discharge Diagnosis (1) Acute renal failure: Status: Acute (2) Syncope: Status: Acute DS: Summary Hospital Course Hospital Course: 60-year-old male with a past medical history of hypertension, hyperlipidemia, GERD, BPH, irritable bowel syndrome, anxiety, depression presented to the hospital with a chief complaint of syncope. He relates to me that he was thrirsty and was up trying to drink water and collapse. When brought to the ED was noted to be dehydration with REJI, and hypotension with BP of 90/50, ECG was normal, troponin I is normal. CT head was normal. Patient was admitted monitored on telemetry without arrythmia, hyypotension resolved with IVF and renal function has returned to normal. He is encouraged to drink plenty of water rather than soda. I got him up and ambulated around the unit without any issues and will be discharged home at this time. He feels comfortable witht he plan. Final Diagnosis: REJI Dehydration Hypotension Syncope Time Spent with Patient Time attestation: Total time spent providing and/or coordinating discharge services: Discharge coordination time: Greater than 30 minutes Quality: Stroke Does the patient have a stroke diagnosis?: No Physical Exam Vital Signs: Vital Signs: Last Vital Signs Temp 97.7 F 03/29/21 07:27 Pulse 70 03/29/21 07:27 Resp 18 03/29/21 07:27 BP 163/76 H 03/29/21 07:27 Pulse Ox 97 03/29/21 07:27 Body Mass Index 28.0 General: AO X 3, no acute distress Resp: CTA bilateral CVS: S1,S2,RRR GI: +BS, NT, no distention Skin: No rash Neuro: motor grossly intact Psych: appropriate affect DS: Data Data Completed and Pending Labs on day of discharge: Laboratory Results - last 24 hr 03/29/21 07:11 POC Glucose 95 Discharge Plan Discharge Anticipated Discharge Date/Time: 03/29/21 08:35 Patient Disposition: Home, Self-Care Discharge Diagnosis: REJI, dehydration, syncope Referrals: Chun Michel MD [Primary Care Provider] - 1 Week Discharge Medications: Continued atorvastatin 40 mg tablet 1 tab PO BEDTIME RF: 0 fluticasone propion-salmeterol 250-50 mcg/dose blister with device 1 puff inhalation BID RF: 0 albuterol sulfate 2.5 mg /3 mL (0.083 %) solution for nebulization 1 amp inhalation TID PRN (Reason: Shortness Of Breath Or Wheezing) RF: 0 omeprazole 40 mg capsule,delayed release(DR/EC) 1 cap PO BID RF: 0 aspirin 81 mg tablet,delayed release (DR/EC) 1 tab PO QAM RF: 0 tramadol 50 mg tablet 1 tab PO Q8H PRN (Reason: pain) RF: 0 sildenafil [Viagra] 100 mg tablet 1 tab PO DAILY PRN (Reason: Erectile Dysfunction) RF: 0 albuterol sulfate 90 mcg/actuation HFA aerosol inhaler 2 puff PO Q4-6H PRN (Reason: Shortness Of Breath Or Wheezing) RF: 0 amitriptyline 100 mg tablet 1 tab PO BEDTIME RF: 0 hydrochlorothiazide 12.5 mg tablet 1 tab PO QAM RF: 0 tamsulosin 0.4 mg capsule 1 cap PO BEDTIME RF: 0 losartan 100 mg tablet 1 tab PO BEDTIME RF: 0 duloxetine 60 mg capsule,delayed release(DR/EC) 1 cap PO QAM RF: 0 gabapentin 800 mg tablet 1 tab PO TID RF: 0 terazosin 5 mg capsule 5 mg PO BEDTIME 90 Days Qty: 90 RF: 1 dicyclomine 20 mg tablet 20 mg PO QID 30 Days Qty: 120 RF: 6 Discharge Orders: Discharge Order (Routine); Ordered 03/29/21 Ordered By: Rashid Anne Diet: advance to usual diet Activity on Discharge: As tolerated Stand Alone Forms: Patient Portal Discharge page Care Plan Goals: prevent rehospitalization Health Concerns: dehydration, renal failure, syncope Plan of Treatment: Drink plenty of water and follow up with your Doctor in a week, call for appointment Assessment: as above Discharge Date/Time: 03/29/21 10:44
--- NOTE | 2021-03-29 09:07 | MHC.CM.PN ---
pt lives alone in his apt. he reports that he is independent in his care. he does have family that live in the area, including a sister who will give him a ride home at dc. pt denies the need for vna at dc. dc plan is home no svcs. cm to cont. to follow.
[2021-03-29 09:12] LABS: Anion Gap 9 (12-20); Blood Urea Nitrogen 20 mg/dL (9-16); Calcium 8.9 mg/dL (8.4-10.2); Carbon Dioxide 29 mmol/L (22-29); Chloride 105 mmol/L (96-108); Estimated Glomerular Filt Rate > 60; Glucose Random 94 mg/dL (60-115); Potassium 3.5 mmol/L (3.3-5.1); Sodium 139 mmol/L (135-145)
[2021-03-29 09:21] VITALS: BP 164/88; PULSE 74; O2SAT 97
[2021-03-29 09:22] VITALS: BP 140/87; PULSE 85; O2SAT 96
[2021-03-29 09:23] VITALS: BP 124/85; PULSE 94; O2SAT 94
[2021-03-29] MEDS: DULoxetine HCl 60 MG CAPSULE.DR PO (09:39)
[2021-03-29] MEDS: Aspirin Enteric Coated 81 MG TABLET.DR PO (09:39)
== END 2021-03-29 10:44 | disposition home or self-care (01) | DRG 315 ==
LOC: HO.ED 03-28 02:55 → HO.EDOVER 03-28 03:05 → HO.ISO 03-28 10:27
PROVIDERS: Physician Assistant; Admitting Provider Hospitalist; Emergency Provider Student in an Organized Health Care Education/Training Program; PCP Internal Medicine; Visit Provider Internal Medicine
DX: I95.9 Hypotension, unspecified (principal); N17.9 Acute kidney failure, unspecified; E86.0 Dehydration; E78.5 Hyperlipidemia, unspecified; N40.0 Benign prostatic hyperplasia without lower urinary tract symptoms; Z20.822 Contact with and (suspected) exposure to COVID-19; Z79.51 Long term (current) use of inhaled steroids; Z79.82 Long term (current) use of aspirin; Z79.891 Long term (current) use of opiate analgesic; Z79.899 Other long term (current) drug therapy
CPT/HCPCS: 36415; 70450; 72125; 80048; 80053; 82947; 84484; 85025; 85610; 85730; 87635; 93005; 93880; 94640; 96360; 96361; 99285

== ENCOUNTER → 2021-05-16 14:05 | Outpatient (BNVA) | payer OTHER, SELFPAY | PROVIDERS: PCP Internal Medicine; Visit Provider Urology | DX: N40.1 Benign prostatic hyperplasia with lower urinary tract symptoms (principal); R39.11 Hesitancy of micturition | CPT/HCPCS: 99212 ==

== ENCOUNTER → 2021-05-26 13:14 | Outpatient (BNVA) | payer OTHER, SELFPAY | PROVIDERS: PCP Internal Medicine; Visit Provider Urology | DX: N40.1 Benign prostatic hyperplasia with lower urinary tract symptoms (principal); R35.1 Nocturia; R39.12 Poor urinary stream | CPT/HCPCS: 52000; 99212 ==

== ENCOUNTER → 2021-06-05 13:59 | Outpatient (BNVA) | payer OTHER, SELFPAY | PROVIDERS: PCP Internal Medicine; Referring Provider Internal Medicine; Visit Provider Surgery | DX: K42.9 Umbilical hernia without obstruction or gangrene (principal) | CPT/HCPCS: 99202 ==

== ENCOUNTER 2021-06-17 03:59 | Emergency (ER) | payer OTHER, SELFPAY ==
--- NOTE | ~2021-06-17 | XR_ITS ---
EXAMINATION: XR CHEST CLINICAL INFORMATION: Weakness COMPARISON: 06/14/2020 TECHNIQUE: Frontal view of the chest was obtained. FINDINGS: Chronic lung markings. No discrete consolidation. No pleural effusion or pneumothorax. Normal heart size and pulmonary vascularity. Healed right-sided rib fractures. No acute or suspicious osseous abnormalities. XR/XR chest 1V IMPRESSION: No acute findings.
[2021-06-17 04:02] VITALS: BP 155/70; PULSE 106; O2SAT 99
--- NOTE | 2021-06-17 04:02 | ED_ITS ---
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 Mode of arrival: EMS Limitations: no limitations History of Present Illness Complaint: generalized weakness (sweats) Onset (ago): minute(s) (45) Duration: improved Location: generalized Migration: none Severity: mild Quality: dull Relieving factors: none Exacerbating factors: none Context: other (denies anything states he was well before bed woke up in a sweat tried to take a shower which didn't help he then noted his nephew has COVID and they were together on Saturday) Associated symptoms: denies other symptoms Related Data Home Medications Medication Instructions Recorded Confirmed albuterol sulfate 1 amp INHALATION TID PRN 07/25/20 06/05/21 albuterol sulfate 90 mcg/actuation 2 puff PO Q4-6H PRN 07/25/20 06/05/21 aerosol inhaler amitriptyline 100 mg tablet 1 tab PO BEDTIME 07/25/20 06/05/21 aspirin 81 mg tablet,delayed 1 tab PO QAM 07/25/20 06/05/21 release atorvastatin 40 mg tablet 1 tab PO BEDTIME 07/25/20 06/05/21 fluticasone 250 mcg-salmeterol 50 1 puff INHALATION BID 07/25/20 06/05/21 mcg/dose blistr powdr for inhalation hydrochlorothiazide 12.5 mg tablet 1 tab PO QAM 07/25/20 06/05/21 omeprazole 40 mg capsule,delayed 1 cap PO BID 07/25/20 06/05/21 release sildenafil 100 mg tablet (Viagra) 1 tab PO DAILY PRN 07/25/20 06/05/21 tramadol 50 mg tablet 1 tab PO Q8H PRN 07/25/20 06/05/21 duloxetine 60 mg capsule,delayed 1 cap PO QAM 03/28/21 06/05/21 release gabapentin 800 mg tablet 1 tab PO TID 03/28/21 06/05/21 losartan 100 mg tablet 1 tab PO BEDTIME 03/28/21 06/05/21 Previous Rx's Medication Instructions Recorded dicyclomine 20 mg tablet 20 mg PO QID 30 Days #120 tab 02/16/21 terazosin 5 mg capsule 5 mg PO BEDTIME 90 Days #90 cap 04/03/21 Allergies Allergy/AdvReac Type Severity Reaction Status Date / Time No Known Allergies Allergy Verified 06/17/21 04:28 [No Known Allergies*] Review of Systems Review of Systems: Constitutional : No Weight loss, No Fever, No Chills, No Fatigue, No Malaise, pos sweats ENT/Mouth : No sore throat, No Rhinorrhea Eyes: No Eye Pain, No Swelling, No Redness Cardiovascular : No Chest Pain, No SOB, No Dyspnea on Exertion, No Orthopnea, No Edema, No Palpitations Respiratory : No Cough, No Sputum, No Wheezing Gastrointestinal : No Nausea, No Vomiting, No Diarrhea, No Constipation, No abdominal Pain, No Hematochezia, No Melena Genitourinary : No Dysuria, No Urinary Frequency, No Hematuria, Musculoskeletal : No joint pain, No Myalgias, No Joint Swelling Skin : No Skin Lesions, No rash Neuro : pos Weakness, No Numbness, No Dizziness, No Headache Psych : No Anxiety/Panic, No Depression Heme/Lymph: No Bruising, No Bleeding,No Lymphadenopathy Endocrine : No Polyuria, No Polydipsia All other systems reviewed and are negative PMFSH Past Medical History Attestation statement: The following information was validated with the patient. Source: old records reviewed Medical History Anxiety Arthritis Asthma Back pain Bipolar 1 disorder Depression Diabetes Elevated cholesterol GERD (gastroesophageal reflux disease) Hypertension Tension pneumothorax, spontaneous Umbilical hernia Surgical History History of lung surgery Hx of colonoscopy Hx of hernia repair Hx of tracheostomy Family History Family History Mother Stomach cancer Brother Prostate cancer Brother Prostate cancer Social History Social History Household Members: None Housing: Apartment Do you presently have visiting nurse or other home services: No Alcohol intake: unknown Patient Tobacco Use Status: Never used Tobacco e-Cigarette/Vaping Use: Never Used Second Hand Smoke Exposure: No Substance Use Type: Former Substance User and Marijuana Advance Directives: No Advance Directives Information Provided: Yes service: No Current occupational status: unemployed Physical Exam Vital Signs: Vital Signs: Last Vital Signs Temp 97.6 F 06/17/21 04:15 Pulse 96 06/17/21 04:15 Resp 16 06/17/21 04:15 BP 134/83 06/17/21 04:15 Pulse Ox 96 06/17/21 04:15 BMI result Body Mass Index 26.5 Appearance: Alert. Oriented X3. No acute distress. Eyes: Pupils equal, round and reactive to light. ENT: Pharynx normal. Neck: Normal inspection. Neck supple. CVS: Normal heart rate and rhythm. Pulses normal. Respiratory: No respiratory distress. Breath sounds normal. Abdomen: Soft and non-tender. Skin: Skin warm and dry. Normal skin color. Normal skin turgor. Extremities: No lower extremity edema. No calf ttp Neuro: Oriented X 3. No motor deficit. No sensory deficit. Course Course Course Narrative: patient now notes that he had his booster yesterday suspect booster reaction MDM - Weakness MDM Narrative Medical decision making narrative: 61 yo male with hx of BPH, IBS, has received 3 doses of his vaccine comes in with c/o sweats and feeling weak x 45 minutes no other symptoms - he does note he was with his nephew 3 days ago who has COVID. Basic labs for dehydration, EKG, CXR and UA for infection. COVID swab. The patient has no CP/SOB to suggest ACS. Lab Data Result diagrams: 06/17/21 04:54 06/17/21 04:54 Labs: Lab Results 06/17/21 06/17/21 06/17/21 Range/Units 04:54 04:54 04:54 WBC 8.6 (4.8-10.8) X10*3/uL RBC 4.87 (4.60-5.80) X10*6/uL Hgb 14.7 (14.0-18.0) g/dl Hct 42.6 (42.0-52.0) % MCV 87.5 (80.0-98.0) fL MCH 30.2 (27.0-33.0) pg MCHC 34.5 (31.0-36.0) g/dl RDW 12.7 (11.0-16.0) % Plt Count 223 (160-400) X10*3/uL MPV 9.8 (9.4-12.4) fL Immature Gran % (Auto) 0.2 (0.0-0.4) % Neut % (Auto) 68.6 (45-73) % Lymph % (Auto) 14.3 L (20-40) % [place] % (Auto) 12.5 H (2-11) % Eos % (Auto) 3.9 (0-4) % Baso % (Auto) 0.5 (0-2) % Lymph # (Auto) 1.2 (1.2-4.9) X10*3/uL [place] # (Auto) 1.1 (0.1-1.2) X10*3/uL Eos # (Auto) 0.3 (0.0-0.4) X10*3/uL Baso # (Auto) 0.0 (0.0-0.2) X10*3/uL Abs Immat Gran (auto) 0.02 (0.00-0.03) X10*3/uL Absolute Neuts (auto) 5.9 (2.0-8.3) x10*3/uL Absolute Nucleated RBC 0.000 (0.0-0.012) X10*3/uL Nucleated RBC % (auto) 0.0 (0.0-0.2) /100WBC Sodium 138 (135-145) mmol/L Potassium 3.1 L (3.3-5.1) mmol/L Chloride 101 (96-108) mmol/L Carbon Dioxide 26 (22-29) mmol/L Anion Gap 14 (12-20) BUN 21 H (9-16) mg/dL Creatinine 0.97 (0.5-1.4) mg/dL Estim Creat Clear Calc 80.4 Estimated GFR > 60 Random Glucose 121 H (60-115) mg/dL Calcium 9.7 D (8.4-10.2) mg/dL Magnesium 2.0 (1.6-2.6) mg/dL COVID-19 (JOSHUA) Negative (Negative) COVID-19 Clin Com See Note ECG Data Attestation: I personally reviewed and interpreted this ECG as follows: ECG interpretation date: 06/17/21 ECG interpretation time: 04:30 Interpretation: Rate: 99 Rhythm: NSR [place]: normal Normal P waves. Normal [place]. Normal QRS complex. ST T wave : nonspecific no MARIIA qTC: prolonged prior studies: no sig ischemia The study has been interpreted contemporaneously by me. . Discharge Plan Discharge Clinical Impression: Acute hypokalemia, Weakness Patient Disposition: Home, Self-Care Instructions: Hypokalemia (ED), Weakness (ED) Additional Instructions: return to ED for any worsening symptoms or concerns rest hydrate Prescriptions: No Action terazosin 5 mg capsule 5 mg PO BEDTIME 90 Days Qty: 90 RF: 3 atorvastatin 40 mg tablet 1 tab PO BEDTIME RF: 0 fluticasone propion-salmeterol 250-50 mcg/dose blister with device 1 puff inhalation BID RF: 0 albuterol sulfate 2.5 mg /3 mL (0.083 %) solution for nebulization 1 amp inhalation TID PRN (Reason: Shortness Of Breath Or Wheezing) RF: 0 omeprazole 40 mg capsule,delayed release(DR/EC) 1 cap PO BID RF: 0 aspirin 81 mg tablet,delayed release (DR/EC) 1 tab PO QAM RF: 0 tramadol 50 mg tablet 1 tab PO Q8H PRN (Reason: pain) RF: 0 sildenafil [Viagra] 100 mg tablet 1 tab PO DAILY PRN (Reason: Erectile Dysfunction) RF: 0 albuterol sulfate 90 mcg/actuation HFA aerosol inhaler 2 puff PO Q4-6H PRN (Reason: Shortness Of Breath Or Wheezing) RF: 0 amitriptyline 100 mg tablet 1 tab PO BEDTIME RF: 0 hydrochlorothiazide 12.5 mg tablet 1 tab PO QAM RF: 0 losartan 100 mg tablet 1 tab PO BEDTIME RF: 0 duloxetine 60 mg capsule,delayed release(DR/EC) 1 cap PO QAM RF: 0 gabapentin 800 mg tablet 1 tab PO TID RF: 0 dicyclomine 20 mg tablet 20 mg PO QID 30 Days Qty: 120 RF: 6 Referrals: Chun Michel MD [Primary Care Provider] - 3 days (if not better)
--- NOTE | 2021-06-17 04:09 | ECG_ITS ---
Test Reason : FLU LIKE Blood Pressure : / mmHG Vent. Rate : 099 BPM Atrial Rate : 099 BPM P-R Int : 156 ms QRS Dur : 114 ms QT Int : 374 ms P-R-T Axes : 052 015 035 degrees QTc Int : 479 ms Normal sinus rhythm Nonspecific T wave abnormality Prolonged QT Abnormal ECG When compared with ECG of 28-MAR-2021 01:39, No significant changes seen Referred By: Diana Caro Electronically Signed By:SORAYA RIGGS
[2021-06-17 04:15] VITALS: BP 134/83; PULSE 96; RESP 16; TEMP 36.4; O2SAT 96; BMI 26.5
[2021-06-17] MEDS: Acetaminophen 325 MG TABLET 650 MG PO (04:54)
[2021-06-17 05:02] LABS: MANUAL DIFF FLAG NO
[2021-06-17 05:03] LABS: Basophils Percent Auto 0.5 % (0-2); Eosinophils Absolute Auto 0.3 X10*3/uL (0.0-0.4); Eosinophils Percent Auto 3.9 % (0-4); Hematocrit 42.6 % (42.0-52.0); Hemoglobin 14.7 g/dl (14.0-18.0); Imm Gran Abs Auto 0.02 X10*3/uL (0.00-0.03); Imm Gran Pct Auto 0.2 % (0.0-0.4); Lymphocytes Absolute Auto 1.2 X10*3/uL (1.2-4.9); Lymphocytes Percent Auto 14.3 % (20-40); Mean Corpuscular HGB Conc 34.5 g/dl (31.0-36.0); Mean Corpuscular Hemoglobin 30.2 pg (27.0-33.0); Mean Corpuscular Volume 87.5 fL (80.0-98.0); Mean Platelet Volume 9.8 fL (9.4-12.4); Monocytes Absolute Auto 1.1 X10*3/uL (0.1-1.2); Monocytes Percent Auto 12.5 % (2-11); Neutrophils Absolute Auto 5.9 x10*3/uL (2.0-8.3); Neutrophils Percent Auto 68.6 % (45-73); Platelet Count 223 X10*3/uL (160-400); Red Blood Count 4.87 X10*6/uL (4.60-5.80); Red Cell Distribution Width 12.7 % (11.0-16.0); White Blood Count 8.6 X10*3/uL (4.8-10.8)
[2021-06-17 05:14] LABS: COVID-19 Test Negative (Negative)
[2021-06-17 05:21] LABS: Anion Gap 14 (12-20); Blood Urea Nitrogen 21 mg/dL (9-16); Calcium 9.7 mg/dL (8.4-10.2); Carbon Dioxide 26 mmol/L (22-29); Chloride 101 mmol/L (96-108); Creatinine Clr Calc Pharmacy 80.4; Estimated Glomerular Filt Rate > 60; Glucose Random 121 mg/dL (60-115); Potassium 3.1 mmol/L (3.3-5.1); Sodium 138 mmol/L (135-145)
[2021-06-17 05:46] LABS: Appearance Urine CLEAR; Color Urine YELLOW; Glucose Urine UA NEG (NEG); Leukocyte Esterase Urine NEG (NEG); Nitrite Urine NEG (NEG); PH 6.5 (5.0-8.0); Specific Gravity - Urine <= 1.005 (1.005-1.025); Urine Blood NEG (NEG); Urine Ketones 15 MG/DL (NEG); Urine Protein NEG (NEG-TRACE)
[2021-06-17] MEDS: Potassium Chloride ER 20 MEQ TAB.ER.PRT 40 MEQ PO (05:51)
== END 2021-06-17 06:15 | disposition home or self-care (01) ==
PROVIDERS: Emergency Provider Emergency Medicine; PCP Internal Medicine
DX: E87.6 Hypokalemia (principal); R53.1 Weakness; Z20.822 Contact with and (suspected) exposure to COVID-19
CPT/HCPCS: 36415; 71045; 80048; 81003; 83735; 85025; 87635; 93005; 99283; 99284

== ENCOUNTER 2021-07-06 22:49 | Emergency (ER) | payer OTHER, SELFPAY ==
--- NOTE | ~2021-07-06 | XR_ITS ---
EXAMINATION: XR CHEST CLINICAL INFORMATION: Chest pain COMPARISON: Multiple prior studies. Most recent 06/17/2021 TECHNIQUE: Frontal view of the chest was obtained. 11:19 PM FINDINGS: Chronic coarse bilateral increased lung markings. No acute airspace disease. No pleural effusion or pneumothorax. Heart size is normal. Cardiac and mediastinal contours are normal. XR/XR chest 1V IMPRESSION: No acute abnormality of the chest.
--- NOTE | 2021-07-06 22:53 | ECG_ITS ---
Test Reason : CHEST PAIN Blood Pressure : / mmHG Vent. Rate : 108 BPM Atrial Rate : 108 BPM P-R Int : 148 ms QRS Dur : 098 ms QT Int : 330 ms P-R-T Axes : 064 034 045 degrees QTc Int : 442 ms Sinus tachycardia Otherwise normal ECG When compared with ECG of 17-JUN-2021 04:27, No significant change was found Referred By: Generic ED Physician Electronically Signed By:SORAYA RIGGS
[2021-07-06 23:37] VITALS: BP 138/93; PULSE 105; RESP 16; TEMP 36.6; O2SAT 96; BMI 25.1
--- NOTE | 2021-07-07 00:19 | ED.CHESTPAIN ---
HPI - Chest Pain General Chief Complaint: Chest Pain Stated Complaint: chest pain Time Seen by Provider: 07/06/21 23:06 Source: patient Mode of arrival: ambulatory Limitations: no limitations History of Present Illness HPI narrative: Patient with history of hypertension, hyperlipidemia, asthma, depression comes here for midsternal pressure-like chest pain since yesterday for 22:00 initially was off and on for since 15:00 today pain is constant patient was seen here for similar pain on 06/14 with workup negative and had a workup done for similar pain at [facility] last year which was also negative. No diaphoresis no shortness of breath no radiation of pain patient does take sildenafil last dose was 4 days ago , also take baby aspirin daily Related Data Home Medications Medication Instructions Recorded Confirmed albuterol sulfate 1 amp INHALATION TID PRN 07/25/20 06/05/21 albuterol sulfate 90 mcg/actuation 2 puff PO Q4-6H PRN 07/25/20 06/05/21 aerosol inhaler amitriptyline 100 mg tablet 1 tab PO BEDTIME 07/25/20 06/05/21 aspirin 81 mg tablet,delayed 1 tab PO QAM 07/25/20 06/05/21 release atorvastatin 40 mg tablet 1 tab PO BEDTIME 07/25/20 06/05/21 fluticasone 250 mcg-salmeterol 50 1 puff INHALATION BID 07/25/20 06/05/21 mcg/dose blistr powdr for inhalation hydrochlorothiazide 12.5 mg tablet 1 tab PO QAM 07/25/20 06/05/21 omeprazole 40 mg capsule,delayed 1 cap PO BID 07/25/20 06/05/21 release sildenafil 100 mg tablet (Viagra) 1 tab PO DAILY PRN 07/25/20 06/05/21 tramadol 50 mg tablet 1 tab PO Q8H PRN 07/25/20 06/05/21 duloxetine 60 mg capsule,delayed 1 cap PO QAM 03/28/21 06/05/21 release gabapentin 800 mg tablet 1 tab PO TID 03/28/21 06/05/21 losartan 100 mg tablet 1 tab PO BEDTIME 03/28/21 06/05/21 Previous Rx's Medication Instructions Recorded dicyclomine 20 mg tablet 20 mg PO QID 30 Days #120 tab 02/16/21 terazosin 5 mg capsule 5 mg PO BEDTIME 90 Days #90 cap 04/03/21 Allergies Allergy/AdvReac Type Severity Reaction Status Date / Time No Known Allergies Allergy Verified 06/17/21 04:28 [No Known Allergies*] Review of Systems Review of Systems: Yes all other systems are reviewed and are negative [facility] Past Medical History Medical History Anxiety Arthritis Asthma Back pain Bipolar 1 disorder Depression Diabetes Elevated cholesterol GERD (gastroesophageal reflux disease) Hypertension Tension pneumothorax, spontaneous Umbilical hernia Surgical History History of lung surgery Hx of colonoscopy Hx of hernia repair Hx of tracheostomy Family History Family History Mother Stomach cancer Brother Prostate cancer Brother Prostate cancer Social History Social History Household Members: None Housing: Apartment Do you presently have visiting nurse or other home services: No Alcohol intake: unknown Patient Tobacco Use Status: Never used Tobacco e-Cigarette/Vaping Use: Never Used Second Hand Smoke Exposure: No Substance Use Type: Former Substance User and Marijuana Advance Directives: No service: No Current occupational status: unemployed Physical Exam Vital Signs: Vital Signs: Last Vital Signs Temp 97.8 F 07/06/21 23:37 Pulse 87 07/07/21 00:59 Resp 16 07/07/21 00:59 BP 128/90 H 07/07/21 00:59 Pulse Ox 96 07/07/21 00:59 BMI result Body Mass Index 25.1 Appearance: Alert. Oriented X3. No acute distress. ENT: Pharynx normal. Oral Mucosa moist Neck: Normal inspection. Neck supple. CVS: Normal heart rate and rhythm. Pulses normal. No murmur/ gallop Respiratory: No respiratory distress. Equal air entry bilateral, no wheezing/rales/rhonchi Abdomen: Soft and nontender. Bowel sounds are present, no mass palpable, no CVA tenderness Skin: Skin warm and dry. Normal skin color. Normal skin turgor. Extremities: No lower extremity edema. No calf tenderness Neuro: Oriented X 3. No motor deficit. 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 Lab Data Attestation: I reviewed the patient's lab results. Result diagrams: 07/07/21 00:57 07/07/21 00:57 Labs: Lab Results 07/07/21 07/07/21 07/07/21 Range/Units 00:57 00:57 00:57 WBC 11.8 H (4.8-10.8) X10*3/uL RBC 5.02 (4.60-5.80) X10*6/uL Hgb 14.7 (14.0-18.0) g/dl Hct 43.5 (42.0-52.0) % MCV 86.7 (80.0-98.0) fL MCH 29.3 (27.0-33.0) pg MCHC 33.8 (31.0-36.0) g/dl RDW 12.8 (11.0-16.0) % Plt Count 299 D (160-400) X10*3/uL MPV 9.5 (9.4-12.4) fL Immature Gran % (Auto) 0.3 (0.0-0.4) % Neut % (Auto) 71.2 (45-73) % Lymph % (Auto) 18.8 L (20-40) % [place] % (Auto) 8.5 (2-11) % Eos % (Auto) 0.9 (0-4) % Baso % (Auto) 0.3 (0-2) % Lymph # (Auto) 2.2 (1.2-4.9) X10*3/uL [place] # (Auto) 1.0 (0.1-1.2) X10*3/uL Eos # (Auto) 0.1 (0.0-0.4) X10*3/uL Baso # (Auto) 0.0 (0.0-0.2) X10*3/uL Abs Immat Gran (auto) 0.03 (0.00-0.03) X10*3/uL Absolute Neuts (auto) 8.4 H (2.0-8.3) x10*3/uL Absolute Nucleated RBC 0.000 (0.0-0.012) X10*3/uL Nucleated RBC % (auto) 0.0 (0.0-0.2) /100WBC Sodium 137 (135-145) mmol/L Potassium 3.6 (3.3-5.1) mmol/L Chloride 102 (96-108) mmol/L Carbon Dioxide 28 (22-29) mmol/L Anion Gap 11 L (12-20) BUN 31 H (9-16) mg/dL Creatinine 1.09 (0.5-1.4) mg/dL Estim Creat Clear Calc 71.6 Estimated GFR > 60 Random Glucose 109 (60-115) mg/dL Calcium 9.8 (8.4-10.2) mg/dL Total Bilirubin 0.5 (0.0-1.0) mg/dL AST 16 (5-37) U/L ALT 30 (0-40) U/L Alkaline Phosphatase 87 (39-117) U/L Troponin I High Sens < 3.5 (<3.5-35.0) ng/L Total Protein 7.4 (6.5-8.0) g/dL Albumin 4.2 (3.5-5.0) g/dL COVID-19 (JOSHUA) (Negative) COVID-19 Clin Com 07/07/21 Range/Units 00:57 WBC (4.8-10.8) X10*3/uL RBC (4.60-5.80) X10*6/uL Hgb (14.0-18.0) g/dl Hct (42.0-52.0) % MCV (80.0-98.0) fL MCH (27.0-33.0) pg MCHC (31.0-36.0) g/dl RDW (11.0-16.0) % Plt Count (160-400) X10*3/uL MPV (9.4-12.4) fL Immature Gran % (Auto) (0.0-0.4) % Neut % (Auto) (45-73) % Lymph % (Auto) (20-40) % [place] % (Auto) (2-11) % Eos % (Auto) (0-4) % Baso % (Auto) (0-2) % Lymph # (Auto) (1.2-4.9) X10*3/uL [place] # (Auto) (0.1-1.2) X10*3/uL Eos # (Auto) (0.0-0.4) X10*3/uL Baso # (Auto) (0.0-0.2) X10*3/uL Abs Immat Gran (auto) (0.00-0.03) X10*3/uL Absolute Neuts (auto) (2.0-8.3) x10*3/uL Absolute Nucleated RBC (0.0-0.012) X10*3/uL Nucleated RBC % (auto) (0.0-0.2) /100WBC Sodium (135-145) mmol/L Potassium (3.3-5.1) mmol/L Chloride (96-108) mmol/L Carbon Dioxide (22-29) mmol/L Anion Gap (12-20) BUN (9-16) mg/dL Creatinine (0.5-1.4) mg/dL Estim Creat Clear Calc Estimated GFR Random Glucose (60-115) mg/dL Calcium (8.4-10.2) mg/dL Total Bilirubin (0.0-1.0) mg/dL AST (5-37) U/L ALT (0-40) U/L Alkaline Phosphatase (39-117) U/L Troponin I High Sens (<3.5-35.0) ng/L Total Protein (6.5-8.0) g/dL Albumin (3.5-5.0) g/dL COVID-19 (JOSHUA) Negative (Negative) COVID-19 Clin Com See Note ECG Data ECG #1: Attestation: I personally reviewed and interpreted this ECG as follows: Interpretation: Sinus tachycardia heart rate 108 normal interval normal axis no acute ischemic changes Discharge Plan Discharge Clinical Impression: Chest pain Qualifiers: Chest pain type: precordial pain Qualified Code(s): R07.2 - Precordial pain Patient Disposition: Home, Self-Care Instructions: Chest Pain (ED) Additional Instructions: Could not take baby aspirin daily or pain does not look like coming from the heart. Follow-up with your previous PCP/Cardiology for further evaluation Take ibuprofen for pain Prescriptions: No Action terazosin 5 mg capsule 5 mg PO BEDTIME 90 Days Qty: 90 RF: 3 atorvastatin 40 mg tablet 1 tab PO BEDTIME RF: 0 fluticasone propion-salmeterol 250-50 mcg/dose blister with device 1 puff inhalation BID RF: 0 albuterol sulfate 2.5 mg /3 mL (0.083 %) solution for nebulization 1 amp inhalation TID PRN (Reason: Shortness Of Breath Or Wheezing) RF: 0 omeprazole 40 mg capsule,delayed release(DR/EC) 1 cap PO BID RF: 0 aspirin 81 mg tablet,delayed release (DR/EC) 1 tab PO QAM RF: 0 tramadol 50 mg tablet 1 tab PO Q8H PRN (Reason: pain) RF: 0 sildenafil [Viagra] 100 mg tablet 1 tab PO DAILY PRN (Reason: Erectile Dysfunction) RF: 0 albuterol sulfate 90 mcg/actuation HFA aerosol inhaler 2 puff PO Q4-6H PRN (Reason: Shortness Of Breath Or Wheezing) RF: 0 amitriptyline 100 mg tablet 1 tab PO BEDTIME RF: 0 hydrochlorothiazide 12.5 mg tablet 1 tab PO QAM RF: 0 losartan 100 mg tablet 1 tab PO BEDTIME RF: 0 duloxetine 60 mg capsule,delayed release(DR/EC) 1 cap PO QAM RF: 0 gabapentin 800 mg tablet 1 tab PO TID RF: 0 dicyclomine 20 mg tablet 20 mg PO QID 30 Days Qty: 120 RF: 6
[2021-07-07 00:59] VITALS: BP 128/90; PULSE 87; RESP 16; O2SAT 96
[2021-07-07 01:06] LABS: Basophils Percent Auto 0.3 % (0-2); Eosinophils Absolute Auto 0.1 X10*3/uL (0.0-0.4); Eosinophils Percent Auto 0.9 % (0-4); Hematocrit 43.5 % (42.0-52.0); Hemoglobin 14.7 g/dl (14.0-18.0); Imm Gran Abs Auto 0.03 X10*3/uL (0.00-0.03); Imm Gran Pct Auto 0.3 % (0.0-0.4); Lymphocytes Absolute Auto 2.2 X10*3/uL (1.2-4.9); Lymphocytes Percent Auto 18.8 % (20-40); MANUAL DIFF FLAG NO; Mean Corpuscular HGB Conc 33.8 g/dl (31.0-36.0); Mean Corpuscular Hemoglobin 29.3 pg (27.0-33.0); Mean Corpuscular Volume 86.7 fL (80.0-98.0); Mean Platelet Volume 9.5 fL (9.4-12.4); Monocytes Percent Auto 8.5 % (2-11); Neutrophils Absolute Auto 8.4 x10*3/uL (2.0-8.3); Neutrophils Percent Auto 71.2 % (45-73); Platelet Count 299 X10*3/uL (160-400); Red Blood Count 5.02 X10*6/uL (4.60-5.80); Red Cell Distribution Width 12.8 % (11.0-16.0); White Blood Count 11.8 X10*3/uL (4.8-10.8)
[2021-07-07] MEDS: Nitroglycerin 2 % Oint 1 GM Packet 0.5 INCH TRANSDERMA (01:08)
[2021-07-07] MEDS: Aspirin Enteric Coated 81 MG TABLET.DR 162 MG PO (01:08)
[2021-07-07 01:19] LABS: COVID-19 Test Negative (Negative)
[2021-07-07 01:27] LABS: Alanine Aminotransferase 30 U/L (0-40); Albumin Level 4.2 g/dL (3.5-5.0); Alkaline Phosphatase 87 U/L (39-117); Anion Gap 11 (12-20); Aspartate Amino Transferase 16 U/L (5-37); Bilirubin Total 0.5 mg/dL (0.0-1.0); Blood Urea Nitrogen 31 mg/dL (9-16); Calcium 9.8 mg/dL (8.4-10.2); Carbon Dioxide 28 mmol/L (22-29); Chloride 102 mmol/L (96-108); Creatinine Clr Calc Pharmacy 71.6; Estimated Glomerular Filt Rate > 60; Glucose Random 109 mg/dL (60-115); Potassium 3.6 mmol/L (3.3-5.1); Sodium 137 mmol/L (135-145); Total Protein 7.4 g/dL (6.5-8.0)
[2021-07-07 01:33] LABS: Troponin-I High Sensitivity < 3.5 ng/L (<3.5-35.0)
== END 2021-07-07 02:13 | disposition home or self-care (01) ==
PROVIDERS: Emergency Provider Internal Medicine; PCP Internal Medicine
DX: R07.2 Precordial pain (principal); Z20.822 Contact with and (suspected) exposure to COVID-19; I10 Essential (primary) hypertension; E78.5 Hyperlipidemia, unspecified; E11.9 Type 2 diabetes mellitus without complications
CPT/HCPCS: 36415; 71045; 80053; 84484; 85025; 87635; 93005; 96372; 99284

== ENCOUNTER 2021-07-07 22:32 | Inpatient (IN) | payer OTHER, SELFPAY ==
--- NOTE | 2021-07-07 | ECG_ITS ---
Test Reason : DIZZINESS Blood Pressure : / mmHG Vent. Rate : 110 BPM Atrial Rate : 110 BPM P-R Int : 144 ms QRS Dur : 094 ms QT Int : 346 ms P-R-T Axes : 047 017 036 degrees QTc Int : 468 ms Sinus tachycardia Otherwise normal ECG When compared with ECG of 06-JUL-2021 23:01, No significant change was found Referred By: Omega Escobedo Electronically Signed By:SORAYA RIGGS
--- NOTE | ~2021-07-07 | CT_ITS ---
EXAMINATION: CT CHEST WITHOUT CONTRAST CLINICAL INFORMATION: Cough. Sputum production. COMPARISON: Chest radiograph 07/06/2021. CT 06/10/2019. TECHNIQUE: Multidetector volumetric CT imaging of the chest was done. Axial MIP volume rendering provided. Sagittal and coronal reformatted images were obtained. This CT examination was performed using dose optimization techniques as appropriate, variously including the following: *Automated exposure control *Adjustment of mA and/or kV according to patient size (this includes techniques or standardized protocols for targeted exams where dose is matched to indication/reason for exam; i.e. extremities or head) *Use of iterative reconstruction technique DLP: 272 mGy-cm FINDINGS: LUNGS: The central airways are patent. Mild paraseptal emphysema greatest at the upper lobes. Bronchial wall thickening noted, which appears chronic. There is an area of scarring at the site of previous right lower lobe nodule. No pulmonary nodules are seen. No dense consolidation. MEDIASTINUM: Normal heart size. No pericardial effusion. No mediastinal lymphadenopathy. Coronary artery calcifications are noted. PLEURA: There is no pleural effusion. No pleural mass or thickening. No pneumothorax. AXILLA: No lymphadenopathy. UPPER ABDOMEN: No acute abnormality. Mild fatty atrophy of the pancreas. OSSEOUS STRUCTURES: No acute or suspicious osseous abnormality. Partially fused right fifth and sixth ribs and right sixth and seventh ribs. CT/CT chest wo con IMPRESSION: Chronic appearing changes in the lungs. Mild emphysema. Bronchial wall thickening could be associated with chronic bronchitis, although acute small airways process is possible. No dense consolidation. Fleischner guidelines were followed.
--- NOTE | ~2021-07-07 | US_ITS ---
EXAMINATION: US RETROPERITONEAL LIMITED (RENAL ONLY) CLINICAL INFORMATION: Acute kidney injury. COMPARISON: CT abdomen pelvis on 11/26/2018 TECHNIQUE: Real-time imaging of the kidneys. FINDINGS: RIGHT KIDNEY: 10.4 x 5.2 x 4.0 cm (SAG x AP x TRV). The kidney is normal in size, contour, and echogenicity. Renal cortical thickness is normal. No calculi or focal parenchymal lesions. No hydronephrosis. LEFT KIDNEY: 10.5 x 5.9 x 5.5 cm (SAG x AP x TRV). The kidney is normal in size, contour, and echogenicity. Renal cortical thickness is normal. No calculi or focal parenchymal lesions. No hydronephrosis. US/US renal BI IMPRESSION: Unremarkable renal ultrasound.
[2021-07-07 22:55] VITALS: BP 79/42; PULSE 122; RESP 16; TEMP 36.3; O2SAT 97; BMI 25.1
[2021-07-07 23:32] VITALS: BP 101/52; PULSE 113; RESP 14; O2SAT 96
--- NOTE | 2021-07-07 23:33 | ED.GENADULT ---
HPI - General Adult General Chief complaint: Neck Pain/Injury Stated complaint: back of head pain Time Seen by Provider: 07/07/21 23:31 Source: patient Mode of arrival: ambulatory Limitations: no limitations History of Present Illness HPI narrative: Patient was seen here yesterday for chest pain of 2 days duration workup negative today he comes here for the pain in the neck and the back of the head for last few hours feeling dizzy although feels slight short of breath on arrival patient's blood pressure was 79/42 with pulse rate of 122 patient denied use of any medication repeat blood pressure was 101/52 no chest pain at this time no palpitation, no fever or chills Related Data Home Medications Medication Instructions Recorded Confirmed albuterol sulfate 1 amp INHALATION TID PRN 07/25/20 07/08/21 albuterol sulfate 90 mcg/actuation 2 puff PO Q4-6H PRN 07/25/20 07/08/21 aerosol inhaler amitriptyline 100 mg tablet 1 tab PO BEDTIME 07/25/20 07/08/21 aspirin 81 mg tablet,delayed 1 tab PO QAM 07/25/20 07/08/21 release atorvastatin 40 mg tablet 1 tab PO BEDTIME 07/25/20 07/08/21 fluticasone 250 mcg-salmeterol 50 1 puff INHALATION BID 07/25/20 07/08/21 mcg/dose blistr powdr for inhalation hydrochlorothiazide 12.5 mg tablet 1 tab PO QAM 07/25/20 07/08/21 omeprazole 40 mg capsule,delayed 1 cap PO BID 07/25/20 07/08/21 release sildenafil 100 mg tablet (Viagra) 1 tab PO DAILY PRN 07/25/20 07/08/21 tramadol 50 mg tablet 1 tab PO Q8H PRN 07/25/20 07/08/21 duloxetine 60 mg capsule,delayed 1 cap PO QAM 03/28/21 07/08/21 release gabapentin 800 mg tablet 1 tab PO TID 03/28/21 07/08/21 losartan 100 mg tablet 1 tab PO BEDTIME 03/28/21 07/08/21 Previous Rx's Medication Instructions Recorded dicyclomine 20 mg tablet 20 mg PO QID 30 Days #120 tab 02/16/21 terazosin 5 mg capsule 5 mg PO BEDTIME 90 Days #90 cap 04/03/21 Allergies Allergy/AdvReac Type Severity Reaction Status Date / Time No Known Allergies Allergy Verified 06/17/21 04:28 [No Known Allergies*] Review of Systems Review of Systems: Yes all other systems are reviewed and are negative ON LICENSE OF [facility] Past Medical History Medical History Anxiety Arthritis Asthma Back pain Bipolar 1 disorder Depression Diabetes Elevated cholesterol GERD (gastroesophageal reflux disease) Hypertension Tension pneumothorax, spontaneous Umbilical hernia Surgical History History of lung surgery Hx of colonoscopy Hx of hernia repair Hx of tracheostomy Family History Family History Mother Stomach cancer Brother Prostate cancer Brother Prostate cancer Social History Social History Household Members: None Housing: Apartment Do you presently have visiting nurse or other home services: No Alcohol intake: unknown Patient Tobacco Use Status: Never used Tobacco e-Cigarette/Vaping Use: Never Used Second Hand Smoke Exposure: No Substance Use Type: Former Substance User and Marijuana Advance Directives: No Advance Directives Information Provided: Yes service: No Current occupational status: unemployed Physical Exam Vital Signs: Vital Signs: Last Vital Signs Temp 98.0 F 07/08/21 03:53 Pulse 104 H 07/08/21 03:53 Resp 14 07/08/21 03:53 BP 140/60 H 07/08/21 03:53 Pulse Ox 97 07/08/21 03:53 BMI result Body Mass Index 25.1 Appearance: Alert. Oriented X3. No acute distress. Eyes: No pallor or icterus ENT: Pharynx normal. Oral Mucosa moist Neck: Normal inspection. Neck supple. CVS: Normal heart rate and rhythm. Pulses normal. Respiratory: No respiratory distress. Equal air entry bilateral, no wheezing/rales/rhonchi Abdomen: Soft and nontender. Bowel sounds are present, no mass palpable, no CVA tenderness Skin: Skin warm and dry. Normal skin color. Normal skin turgor. Extremities: No lower extremity edema. No calf tenderness Neuro: Oriented X 3. No motor deficit. No sensory deficit.No cerebellar signs , cranial nerves II-XII intact Medical Decision Making MDM Narrative Medical decision making narrative: Patient with acute dizziness upper back pain lab workup showed REJI with creatinine of 2.34 was 1.09 yesterday etiology not very clear will give patient IV fluids recheck BUN creatinine Patient's lab still showing REJI improved from the previous after IV fluid patient had similar history last month and previously from decreased oral intake but patient denied at this time and according to him is drinking enough fluids. Will admit patient for REJI Lab Data Lab results reviewed: Yes I reviewed the patient's lab results. Result diagrams: 07/07/21 23:42 07/08/21 03:04 Labs: Lab Results 07/07/21 07/07/21 07/07/21 Range/Units 23:42 23:42 23:42 WBC 13.1 H (4.8-10.8) X10*3/uL RBC 5.01 (4.60-5.80) X10*6/uL Hgb 15.0 (14.0-18.0) g/dl Hct 43.9 (42.0-52.0) % MCV 87.6 (80.0-98.0) fL MCH 29.9 (27.0-33.0) pg MCHC 34.2 (31.0-36.0) g/dl RDW 13.0 (11.0-16.0) % Plt Count 315 (160-400) X10*3/uL MPV 9.6 (9.4-12.4) fL Immature Gran % (Auto) 0.3 (0.0-0.4) % Neut % (Auto) 73.8 H (45-73) % Lymph % (Auto) 15.0 L (20-40) % Clinton % (Auto) 9.2 (2-11) % Eos % (Auto) 1.4 (0-4) % Baso % (Auto) 0.3 (0-2) % Lymph # (Auto) 2.0 (1.2-4.9) X10*3/uL Clinton # (Auto) 1.2 (0.1-1.2) X10*3/uL Eos # (Auto) 0.2 (0.0-0.4) X10*3/uL Baso # (Auto) 0.0 (0.0-0.2) X10*3/uL Abs Immat Gran (auto) 0.04 H (0.00-0.03) X10*3/uL Absolute Neuts (auto) 9.7 H (2.0-8.3) x10*3/uL Absolute Nucleated RBC 0.000 (0.0-0.012) X10*3/uL Nucleated RBC % (auto) 0.0 (0.0-0.2) /100WBC Sodium 137 (135-145) mmol/L Potassium 3.8 (3.3-5.1) mmol/L Chloride 103 (96-108) mmol/L Carbon Dioxide 19 L (22-29) mmol/L Anion Gap 19 (12-20) BUN 40 H (9-16) mg/dL Creatinine 2.34 H (0.5-1.4) mg/dL Estim Creat Clear Calc 33.3 Estimated GFR 28 Random Glucose 141 H (60-115) mg/dL Calcium 9.4 (8.4-10.2) mg/dL Total Bilirubin 0.6 (0.0-1.0) mg/dL AST 21 (5-37) U/L ALT 32 (0-40) U/L Alkaline Phosphatase 89 (39-117) U/L Troponin I High Sens (<3.5-35.0) ng/L Total Protein 7.6 (6.5-8.0) g/dL Albumin 4.1 (3.5-5.0) g/dL Urine Color Urine Appearance Urine pH (5.0-8.0) Ur Specific Jewell (1.005-1.025) Urine Protein (NEG-TRACE) MG/DL Urine Glucose (UA) (NEG) MG/DL Urine Ketones (NEG) MG/DL Urine Blood (NEG) Urine Nitrite (NEG) Ur Leukocyte Esterase (NEG) Influenza Type A (PCR) NEGATIVE (Negative) Influenza Type B (PCR) NEGATIVE (Negative) RSV RNA Qual (PCR) NEGATIVE (Negative) SARS-CoV-2 RNA (RT-PCR) NEGATIVE (Negative) 07/07/21 07/08/21 07/08/21 Range/Units 23:42 01:30 03:04 WBC (4.8-10.8) X10*3/uL RBC (4.60-5.80) X10*6/uL Hgb (14.0-18.0) g/dl Hct (42.0-52.0) % MCV (80.0-98.0) fL MCH (27.0-33.0) pg MCHC (31.0-36.0) g/dl RDW (11.0-16.0) % Plt Count (160-400) X10*3/uL MPV (9.4-12.4) fL Immature Gran % (Auto) (0.0-0.4) % Neut % (Auto) (45-73) % Lymph % (Auto) (20-40) % Clinton % (Auto) (2-11) % Eos % (Auto) (0-4) % Baso % (Auto) (0-2) % Lymph # (Auto) (1.2-4.9) X10*3/uL Clinton # (Auto) (0.1-1.2) X10*3/uL Eos # (Auto) (0.0-0.4) X10*3/uL Baso # (Auto) (0.0-0.2) X10*3/uL Abs Immat Gran (auto) (0.00-0.03) X10*3/uL Absolute Neuts (auto) (2.0-8.3) x10*3/uL Absolute Nucleated RBC (0.0-0.012) X10*3/uL Nucleated RBC % (auto) (0.0-0.2) /100WBC Sodium 138 (135-145) mmol/L Potassium 4.2 (3.3-5.1) mmol/L Chloride 109 H (96-108) mmol/L Carbon Dioxide 20 L (22-29) mmol/L Anion Gap 13 (12-20) BUN 37 H (9-16) mg/dL Creatinine 1.78 H (0.5-1.4) mg/dL Estim Creat Clear Calc 43.8 Estimated GFR 39 Random Glucose 94 (60-115) mg/dL Calcium 8.1 L D (8.4-10.2) mg/dL Total Bilirubin (0.0-1.0) mg/dL AST (5-37) U/L ALT (0-40) U/L Alkaline Phosphatase (39-117) U/L Troponin I High Sens 5.4 D (<3.5-35.0) ng/L Total Protein (6.5-8.0) g/dL Albumin (3.5-5.0) g/dL Urine Color YELLOW Urine Appearance CLEAR Urine pH 6.5 (5.0-8.0) Ur Specific Jewell 1.010 (1.005-1.025) Urine Protein NEG (NEG-TRACE) MG/DL Urine Glucose (UA) NEG (NEG) MG/DL Urine Ketones NEG (NEG) MG/DL Urine Blood NEG (NEG) Urine Nitrite NEG (NEG) Ur Leukocyte Esterase NEG (NEG) Influenza Type A (PCR) (Negative) Influenza Type B (PCR) (Negative) RSV RNA Qual (PCR) (Negative) SARS-CoV-2 RNA (RT-PCR) (Negative) ECG Data Attestation: I personally reviewed and interpreted this ECG as follows: Interpretation: Sinus tachycardia 110 heart rate normal interval normal axis no acute ST-T changes no acute ischemia Discharge Plan Discharge Clinical Impression: Acute renal failure Qualifiers: Acute renal failure type: unspecified Qualified Code(s): N17.9 - Acute kidney failure, unspecified Patient Disposition: Admitted As Inpatient
--- NOTE | 2021-07-07 23:45 | PC.NURSE ---
IV established, labs and swab obtained. technical services analyst at bedside for EKG.
[2021-07-07 23:48] LABS: MANUAL DIFF FLAG NO
[2021-07-07 23:51] LABS: Basophils Percent Auto 0.3 % (0-2); Eosinophils Absolute Auto 0.2 X10*3/uL (0.0-0.4); Eosinophils Percent Auto 1.4 % (0-4); Hematocrit 43.9 % (42.0-52.0); Imm Gran Abs Auto 0.04 X10*3/uL (0.00-0.03); Imm Gran Pct Auto 0.3 % (0.0-0.4); Mean Corpuscular HGB Conc 34.2 g/dl (31.0-36.0); Mean Corpuscular Hemoglobin 29.9 pg (27.0-33.0); Mean Corpuscular Volume 87.6 fL (80.0-98.0); Mean Platelet Volume 9.6 fL (9.4-12.4); Monocytes Absolute Auto 1.2 X10*3/uL (0.1-1.2); Monocytes Percent Auto 9.2 % (2-11); Neutrophils Absolute Auto 9.7 x10*3/uL (2.0-8.3); Neutrophils Percent Auto 73.8 % (45-73); Platelet Count 315 X10*3/uL (160-400); Red Blood Count 5.01 X10*6/uL (4.60-5.80); White Blood Count 13.1 X10*3/uL (4.8-10.8)
[2021-07-08] VITALS (8 sets, daily range): BP systolic 96–152; BP diastolic 59–99; PULSE 86–104; RESP 10–26; TEMP 36.6–36.9; O2SAT 94–98
[2021-07-08 00:13] LABS: Troponin-I High Sensitivity 5.4 ng/L (<3.5-35.0)
[2021-07-08 00:16] LABS: Alanine Aminotransferase 32 U/L (0-40); Albumin Level 4.1 g/dL (3.5-5.0); Alkaline Phosphatase 89 U/L (39-117); Anion Gap 19 (12-20); Aspartate Amino Transferase 21 U/L (5-37); Bilirubin Total 0.6 mg/dL (0.0-1.0); Blood Urea Nitrogen 40 mg/dL (9-16); Calcium 9.4 mg/dL (8.4-10.2); Carbon Dioxide 19 mmol/L (22-29); Chloride 103 mmol/L (96-108); Creatinine Clr Calc Pharmacy 33.3; Estimated Glomerular Filt Rate 28; Glucose Random 141 mg/dL (60-115); Potassium 3.8 mmol/L (3.3-5.1); Sodium 137 mmol/L (135-145); Total Protein 7.6 g/dL (6.5-8.0)
--- NOTE | 2021-07-08 00:22 | PC.NURSE ---
MD at bedside discussing results and plan of care.
[2021-07-08 00:28] LABS: Influenza A PCR NEGATIVE (Negative); Influenza B PCR NEGATIVE (Negative); Resp Syncy Virus RNA Qual PCR NEGATIVE (Negative); SARS COV2 PCR INHOUSE NEGATIVE (Negative)
[2021-07-08] MEDS: 0.9 % Sodium Chloride 1,000 ML 999 ML IVCONT ×2 (00:44→01:30)
--- NOTE | 2021-07-08 01:33 | PC.NURSE ---
UA obtained and sent. VSS.
[2021-07-08 01:37] LABS: Appearance Urine CLEAR; Color Urine YELLOW; Glucose Urine UA NEG (NEG); Leukocyte Esterase Urine NEG (NEG); Nitrite Urine NEG (NEG); PH 6.5 (5.0-8.0); Urine Blood NEG (NEG); Urine Ketones NEG (NEG); Urine Protein NEG (NEG-TRACE)
[2021-07-08 03:31] LABS: Anion Gap 13 (12-20); Blood Urea Nitrogen 37 mg/dL (9-16); Calcium 8.1 mg/dL (8.4-10.2); Carbon Dioxide 20 mmol/L (22-29); Chloride 109 mmol/L (96-108); Creatinine Clr Calc Pharmacy 43.8; Estimated Glomerular Filt Rate 39; Glucose Random 94 mg/dL (60-115); Potassium 4.2 mmol/L (3.3-5.1); Sodium 138 mmol/L (135-145)
[2021-07-08] MEDS: Albuterol/Iprat 2.5/0.5MG 3 ML AMPUL.NEB INHALE (03:51)
[2021-07-08] MEDS: Albuterol Sulfate (0.083%) 2.5 MG/3 ML VIAL.NEB 5 MG INHALE (03:51)
--- NOTE | 2021-07-08 04:13 | PC.NURSE ---
Pt awakes from sleep, ringing call betancur, stating that he can't breathe and needs a treatment. RT notified. RT at bedside for eval. RA sat 98%, expiratory wheezing noted, plan for UPD. Repeat labs resulted, per MD, plan for admission due to elevated kidney function.
--- NOTE | 2021-07-08 04:22 | PC.NURSE ---
Hospitalist at bedside for primary eval.
--- NOTE | 2021-07-08 04:38 | PM.IMHP ---
History of Present Illness Date of Service: 07/08/21 Chief Complaint: Headache 61-year-old male with a past medical history of hypertension, hyperlipidemia, diabetes, anxiety, depression, bipolar disorder, arthritis, GERD, history of tension pneumothorax, history of lung collapse status post surgery, irritable bowel syndrome , BPH, tubular adenoma of the colon, family history of colon cancer/prostate cancer; presented to the hospital today with a chief complaint of headache. Patient reported that he presented to the hospital yesterday with a chief complaint of chest pain, had routine workup done and was sent home; and today he had glass of cathie; later he felt headache in the back of the head and not feeling well; noted to have blood pressure systolic in 70s; came to the ER for further evaluation. Mentions that he has been having cough with intermittent greenish to white sputum production for about 4 days. Denies any nausea vomiting or diarrhea. Currently denies any chest pain or palpitations. Denies any lightheadedness or dizziness. Denies any blurry visions, numbness tingling or focal weakness. Reports his headache improved at the time of my interview. Patient reports that over the past 3-4 weeks he has been having decreased appetite and lost about 15 lb; Denies any significant smoking history of alcohol history. Review of all other systems is negative except mentioned above ER course: Per ER team patient noted of benign examination; troponins negative; EKG nonischemic; on labs noted to have elevated creatinine of 2.3; given IV fluids; on presentation patient noted to have blood pressure in 70s systolic; given IV fluids with improvement in blood pressure; urinalysis was negative; chest x-ray from 07/06/2021 was negative; admitted to the hospital for further management [facility] Medical History (Updated 07/20/21 @ 19:11 by Junior Acuna MD) Anxiety Arthritis Asthma Back pain Bipolar 1 disorder Depression Diabetes Elevated cholesterol GERD (gastroesophageal reflux disease) Hypertension IBS (irritable bowel syndrome) Tension pneumothorax, spontaneous Umbilical hernia Family History Mother Stomach cancer Brother Prostate cancer Brother Prostate cancer Pertinent family history: Reports 3 of the brothers had colon cancer Surgical History (Updated 07/19/21 @ 13:05 by Cinthya Aguilar RN) History of lung surgery Hx of colonoscopy Hx of hernia repair Hx of tracheostomy Social History Household Members: None Housing: Apartment Do you presently have visiting nurse or other home services: No Alcohol intake: current Alcohol intake frequency: holidays/special occasions only Patient Tobacco Use Status: Never used Tobacco e-Cigarette/Vaping Use: Never Used Second Hand Smoke Exposure: No Use of substances other than those prescribed or required for medical reasons: No Substance Use Type: Former Substance User and Marijuana Advance Directives: No Advance Directives Information Provided: Yes service: No Current occupational status: unemployed Meds Allergies Allergy/AdvReac Type Severity Reaction Status Date / Time No Known Allergies Allergy Verified 07/19/21 12:59 [No Known Allergies*] Active Medications: Current Medications Acetaminophen (Acetaminophen 325 Mg Tablet) 650 mg PO Q6H PRN PRN Reason: Pain, Mild (Pain Scale 1-3) Sodium Chloride (Ns) 1,000 mls @ 100 mls/hr IVCONT .Q10H [facility] Melatonin (Melatonin 3 Mg Tablet) 6 mg PO BEDTIME PRN PRN Reason: Insomnia Senna (Sennosides 8.6 Mg Tablet) 17.2 mg PO BEDTIME PRN PRN Reason: Constipation Sodium Chloride (0.9 % Sodium Chloride Flush 3 Ml Syringe) 3 ml IVFLUSH QSHIFT [facility] Home Medications Medication Instructions Recorded Confirmed Last Taken Type albuterol sulfate 1 amp INHALATION TID PRN 07/25/20 07/19/21 Unknown History albuterol sulfate 90 mcg/actuation 2 puff PO Q4-6H PRN 07/25/20 07/19/21 Unknown History aerosol inhaler amitriptyline 100 mg tablet 1 tab PO BEDTIME 07/25/20 07/19/21 Unknown History aspirin 81 mg tablet,delayed 1 tab PO QAM 07/25/20 07/19/21 Unknown History release atorvastatin 40 mg tablet 1 tab PO BEDTIME 07/25/20 07/19/21 Unknown History fluticasone 250 mcg-salmeterol 50 1 puff INHALATION BID 07/25/20 07/19/21 Unknown History mcg/dose blistr powdr for inhalation omeprazole 40 mg capsule,delayed 1 cap PO BID 07/25/20 07/19/21 Unknown History release sildenafil 100 mg tablet (Viagra) 1 tab PO DAILY PRN 07/25/20 07/19/21 Unknown History tramadol 50 mg tablet 1 tab PO Q8H PRN 07/25/20 07/19/21 Unknown History duloxetine 60 mg capsule,delayed 1 cap PO QAM 03/28/21 07/19/21 Unknown History release gabapentin 800 mg tablet 1 tab PO TID 03/28/21 07/19/21 Unknown History finasteride 5 mg tablet 1 tab PO DAILY 07/08/21 07/19/21 Unknown History tamsulosin 0.4 mg capsule 1 cap PO BEDTIME 07/08/21 07/19/21 Unknown History losartan 100 mg tablet 1 tab PO BEDTIME 07/19/21 07/19/21 Unknown History Physical Exam Vital Signs and Narrative: Vital Signs: Last Vital Signs Temp 98.0 F 07/08/21 02:00 Pulse 92 07/08/21 03:52 Resp 18 07/08/21 03:52 BP 145/59 H 07/08/21 02:00 Pulse Ox 97 07/08/21 02:00 BMI result Body Mass Index 25.1 Gen: Appears be in no acute distress HEENT: NCAT, dry mucosa. Pulmonary: Vesicular breath sounds, fair air entry CVS: Normal S1-S2 Abdomen: BS+, Soft, Nontender Extremities: Warm well perfused Neuro: Alert and awake. Grossly nonfocal Results Labs CBC and Chem 7: 07/09/21 07:25 07/09/21 07:25 Labs: Laboratory Results - last 24 hr 07/07/21 07/07/21 07/07/21 23:42 23:42 23:42 MCV 87.6 MCH 29.9 MCHC 34.2 RDW 13.0 Plt Count 315 MPV 9.6 Immature Gran % (Auto) 0.3 Neut % (Auto) 73.8 H Lymph % (Auto) 15.0 L Nolan % (Auto) 9.2 Eos % (Auto) 1.4 Baso % (Auto) 0.3 Lymph # (Auto) 2.0 Nolan # (Auto) 1.2 Eos # (Auto) 0.2 Baso # (Auto) 0.0 Abs Immat Gran (auto) 0.04 H Absolute Neuts (auto) 9.7 H Absolute Nucleated RBC 0.000 Nucleated RBC % (auto) 0.0 Anion Gap 19 Estim Creat Clear Calc 33.3 Estimated GFR 28 Random Glucose 141 H Calcium 9.4 Total Bilirubin 0.6 AST 21 ALT 32 Alkaline Phosphatase 89 Troponin I High Sens Total Protein 7.6 Albumin 4.1 Urine Color Urine Appearance Urine pH Ur Specific Thornton Urine Protein Urine Glucose (UA) Urine Ketones Urine Blood Urine Nitrite Ur Leukocyte Esterase Influenza Type A (PCR) NEGATIVE Influenza Type B (PCR) NEGATIVE RSV RNA Qual (PCR) NEGATIVE SARS-CoV-2 RNA (RT-PCR) NEGATIVE 07/07/21 07/08/21 07/08/21 23:42 01:30 03:04 MCV MCH MCHC RDW Plt Count MPV Immature Gran % (Auto) Neut % (Auto) Lymph % (Auto) Nolan % (Auto) Eos % (Auto) Baso % (Auto) Lymph # (Auto) Nolan # (Auto) Eos # (Auto) Baso # (Auto) Abs Immat Gran (auto) Absolute Neuts (auto) Absolute Nucleated RBC Nucleated RBC % (auto) Anion Gap 13 Estim Creat Clear Calc 43.8 Estimated GFR 39 Random Glucose 94 Calcium 8.1 L D Total Bilirubin AST ALT Alkaline Phosphatase Troponin I High Sens 5.4 D Total Protein Albumin Urine Color YELLOW Urine Appearance CLEAR Urine pH 6.5 Ur Specific Thornton 1.010 Urine Protein NEG Urine Glucose (UA) NEG Urine Ketones NEG Urine Blood NEG Urine Nitrite NEG Ur Leukocyte Esterase NEG Influenza Type A (PCR) Influenza Type B (PCR) RSV RNA Qual (PCR) SARS-CoV-2 RNA (RT-PCR) Assessment and Plan (1) REJI (acute kidney injury): Status: Acute 61-year-old male with a past medical history of hypertension, hyperlipidemia, diabetes, anxiety, depression, bipolar disorder, arthritis, GERD, history of tension pneumothorax, history of lung collapse status post surgery, irritable bowel syndrome , BPH, tubular adenoma of the colon, family history of colon cancer/prostate cancer; presented to the hospital today with a chief complaint of headache/ cough/low blood pressure. Noted to have following conditions Hypotension: Patient noted to be dehydrated. Likely volume depletion from dehydration. Improved with IV hydration. Cough/sputum production: CT chest pending. REJI: Likely prerenal versus ATN from low blood pressure. On IV fluids. Improving. Avoid nephrotoxins. Hold home losartan/hydrochlorothiazide . Weight loss: Patient reports losing about 15 lb in 3-4 weeks. Reports decreased appetite. CT abdomen showed no acute findings. Patient does report significant family history of colon cancer and prostate cancer. He also mentioned that he had a colonoscopy done 3 months ago with a polyp removed otherwise negative. CT chest pending. Supportive care For all other chronic conditions, home medications will be continued DVT prophylaxis: SCD boots Code status: Full code Quality Stroke Does the patient have a stroke diagnosis?: No VTE Prior VTE?: No VTE Risk Level:: Medical - low VTE Device Contraindication: N/A - Device Ordered VTE Drug Contraindication: Treatment Not Indicated
--- NOTE | 2021-07-08 05:14 | PC.NURSE ---
Pt off to CT, plan for IVF upon return.
[2021-07-08] MEDS: 0.9 % Sodium Chloride 1,000 ML 100 ML IVCONT ×2 (05:23→14:04)
[2021-07-08 06:12] LABS: Basophils Percent Auto 0.3 % (0-2); Eosinophils Absolute Auto 0.2 X10*3/uL (0.0-0.4); Eosinophils Percent Auto 1.6 % (0-4); Hematocrit 38.4 % (42.0-52.0); Imm Gran Abs Auto 0.04 X10*3/uL (0.00-0.03); Imm Gran Pct Auto 0.3 % (0.0-0.4); Lymphocytes Absolute Auto 2.3 X10*3/uL (1.2-4.9); Lymphocytes Percent Auto 19.4 % (20-40); MANUAL DIFF FLAG NO; Mean Corpuscular HGB Conc 33.9 g/dl (31.0-36.0); Mean Corpuscular Hemoglobin 29.9 pg (27.0-33.0); Mean Corpuscular Volume 88.3 fL (80.0-98.0); Mean Platelet Volume 9.5 fL (9.4-12.4); Monocytes Absolute Auto 1.2 X10*3/uL (0.1-1.2); Monocytes Percent Auto 10.1 % (2-11); Neutrophils Absolute Auto 8.2 x10*3/uL (2.0-8.3); Neutrophils Percent Auto 68.3 % (45-73); Platelet Count 245 X10*3/uL (160-400); Red Blood Count 4.35 X10*6/uL (4.60-5.80); Red Cell Distribution Width 12.8 % (11.0-16.0)
[2021-07-08 06:33] LABS: Anion Gap 11 (12-20); Blood Urea Nitrogen 36 mg/dL (9-16); Calcium 8.5 mg/dL (8.4-10.2); Carbon Dioxide 24 mmol/L (22-29); Chloride 107 mmol/L (96-108); Creatinine Clr Calc Pharmacy 51.3; Estimated Glomerular Filt Rate 47; Glucose Random 177 mg/dL (60-115); Potassium 3.2 mmol/L (3.3-5.1); Sodium 139 mmol/L (135-145)
--- NOTE | 2021-07-08 09:18 | PM.PNNEP ---
Subjective Subjective Date of Service: 07/08/21 Interval history: seen and examined consult dictated Physical Exam Vital Signs: Vital Signs: Last Vital Signs Temp 98.0 F 07/08/21 03:53 Pulse 104 H 07/08/21 03:53 Resp 14 07/08/21 03:53 BP 140/60 H 07/08/21 03:53 Pulse Ox 97 07/08/21 03:53 BMI result Body Mass Index 25.1 Objective Data Labs CBC & Chem 7: 07/08/21 06:08 07/08/21 06:08 Labs: Laboratory Results - last 24 hr 07/07/21 07/07/21 07/07/21 23:42 23:42 23:42 WBC 13.1 H RBC 5.01 Hgb 15.0 Hct 43.9 MCV 87.6 MCH 29.9 MCHC 34.2 RDW 13.0 Plt Count 315 MPV 9.6 Immature Gran % (Auto) 0.3 Neut % (Auto) 73.8 H Lymph % (Auto) 15.0 L [place] % (Auto) 9.2 Eos % (Auto) 1.4 Baso % (Auto) 0.3 Lymph # (Auto) 2.0 [place] # (Auto) 1.2 Eos # (Auto) 0.2 Baso # (Auto) 0.0 Abs Immat Gran (auto) 0.04 H Absolute Neuts (auto) 9.7 H Absolute Nucleated RBC 0.000 Nucleated RBC % (auto) 0.0 Sodium 137 Potassium 3.8 Chloride 103 Carbon Dioxide 19 L Anion Gap 19 BUN 40 H Creatinine 2.34 H Estim Creat Clear Calc 33.3 Estimated GFR 28 Random Glucose 141 H Lactic Acid Calcium 9.4 Total Bilirubin 0.6 AST 21 ALT 32 Alkaline Phosphatase 89 Troponin I High Sens Total Protein 7.6 Albumin 4.1 Urine Color Urine Appearance Urine pH Ur Specific [place] Urine Protein Urine Glucose (UA) Urine Ketones Urine Blood Urine Nitrite Ur Leukocyte Esterase Influenza Type A (PCR) NEGATIVE Influenza Type B (PCR) NEGATIVE RSV RNA Qual (PCR) NEGATIVE SARS-CoV-2 RNA (RT-PCR) NEGATIVE 07/07/21 07/08/21 07/08/21 23:42 01:30 03:04 WBC RBC Hgb Hct MCV MCH MCHC RDW Plt Count MPV Immature Gran % (Auto) Neut % (Auto) Lymph % (Auto) [place] % (Auto) Eos % (Auto) Baso % (Auto) Lymph # (Auto) [place] # (Auto) Eos # (Auto) Baso # (Auto) Abs Immat Gran (auto) Absolute Neuts (auto) Absolute Nucleated RBC Nucleated RBC % (auto) Sodium 138 Potassium 4.2 Chloride 109 H Carbon Dioxide 20 L Anion Gap 13 BUN 37 H Creatinine 1.78 H Estim Creat Clear Calc 43.8 Estimated GFR 39 Random Glucose 94 Lactic Acid Calcium 8.1 L D Total Bilirubin AST ALT Alkaline Phosphatase Troponin I High Sens 5.4 D Total Protein Albumin Urine Color YELLOW Urine Appearance CLEAR Urine pH 6.5 Ur Specific [place] 1.010 Urine Protein NEG Urine Glucose (UA) NEG Urine Ketones NEG Urine Blood NEG Urine Nitrite NEG Ur Leukocyte Esterase NEG Influenza Type A (PCR) Influenza Type B (PCR) RSV RNA Qual (PCR) SARS-CoV-2 RNA (RT-PCR) 07/08/21 07/08/21 07/08/21 06:08 06:08 06:08 WBC 12.0 H RBC 4.35 L Hgb 13.0 L Hct 38.4 L MCV 88.3 MCH 29.9 MCHC 33.9 RDW 12.8 Plt Count 245 MPV 9.5 Immature Gran % (Auto) 0.3 Neut % (Auto) 68.3 Lymph % (Auto) 19.4 L [place] % (Auto) 10.1 Eos % (Auto) 1.6 Baso % (Auto) 0.3 Lymph # (Auto) 2.3 [place] # (Auto) 1.2 Eos # (Auto) 0.2 Baso # (Auto) 0.0 Abs Immat Gran (auto) 0.04 H Absolute Neuts (auto) 8.2 Absolute Nucleated RBC 0.000 Nucleated RBC % (auto) 0.0 Sodium 139 Potassium 3.2 L D Chloride 107 Carbon Dioxide 24 Anion Gap 11 L BUN 36 H Creatinine 1.52 H Estim Creat Clear Calc 51.3 Estimated GFR 47 Random Glucose 177 H D Lactic Acid 1.0 Calcium 8.5 Total Bilirubin AST ALT Alkaline Phosphatase Troponin I High Sens Total Protein Albumin Urine Color Urine Appearance Urine pH Ur Specific [place] Urine Protein Urine Glucose (UA) Urine Ketones Urine Blood Urine Nitrite Ur Leukocyte Esterase Influenza Type A (PCR) Influenza Type B (PCR) RSV RNA Qual (PCR) SARS-CoV-2 RNA (RT-PCR) Procedures Date of Service Date of Service: 07/08/21 Assessment & Plan Assessment and plan (1) REJI (acute kidney injury): Status: Acute (2) Hypokalemia: Status: Acute Assessment and Plan: REJI due to renal hypoperfusion combination of ARB, thiazide and significant weight loss resulting in disruption of the auto regulation of the kidneys hypokalemia due to decreased total body store and thiazide normal baseline kidney function REC IVF replace potassium hold HCTZ and losartan follow kidney function and eleectrolytes Time Spent With Patient Time: Total time spent is greater than 50% in coordination of care (as documented) at patient's floor/unit and/or counseling patient:
[2021-07-08] MEDS: Potassium Chloride ER 20 MEQ TAB.ER.PRT 40 MEQ PO (09:51)
--- NOTE | 2021-07-08 11:17 | CONS_ITS ---
DATE OF SERVICE: HISTORY OF PRESENT ILLNESS: I was asked to assist in the management of this 61-year-old patient, who has a normal baseline kidney function who presented to the hospital with headache and was noted to have elevated serum creatinine. Patient initially presented to the hospital with chest pain and was noted to have low blood pressure with systolic blood pressure down to the 70s. He mentioned that he has been having a productive cough for several days. He denies any nausea, vomiting, or diarrhea, but tells me that he has lost weight because of decreased oral intake and reports a weight loss of about 15 pounds. He denies the use of nonsteroidal anti-inflammatory drugs and he not noticed any change in color or appearance of the urine. Patient was started in the emergency room on IV fluids. PAST MEDICAL HISTORY: Remarkable for hypertension, diabetes mellitus, dyslipidemia, enlarged prostate, depression, anxiety, also arthritis, asthma, bipolar disorder, GERD, umbilical hernia. MEDICATION: As an outpatient included inhalers, atorvastatin, hydrochlorothiazide, omeprazole, sildenafil, tramadol, duloxetine, gabapentin, losartan, amitriptyline. ALLERGIES: HE IS NOT ALLERGIC TO MEDICATIONS. SOCIAL HISTORY: He does not smoke. FAMILY HISTORY: Negative for kidney disease. REVIEW OF SYSTEMS: 10-point review of system negative except for pertinent history of present illness. PHYSICAL EXAMINATION: VITAL SIGNS: Blood pressure is 140/60, heart rate 104, respiratory rate is 14, temperature 98. CONSTITUTIONAL: Looks stated age. No acute distress. NEUROLOGIC: Alert, awake, and normocephalic. NECK: Supple. LUNGS: Good air entry bilaterally. CARDIOVASCULAR: S1, S2. No rub. ABDOMEN: Soft, nontender. EXTREMITIES: No peripheral edema. LABORATORY DATA: Showed a white count 12, hemoglobin 13, platelet count is 245. Sodium 139, potassium 3.2, chloride 107, CO2 24, BUN 36, creatinine 1.52. BUN on admission was 40. Creatinine on admission was 2.34. Urinalysis with no protein. IMPRESSION: 1. Acute kidney injury. 2. Hypokalemia. This patient presented with acute kidney injury due to renal hypoperfusion in the setting of low blood pressure. He has a benign urine sediment and no evidence for proteinuria. Patient noted to have normal baseline kidney function. I suspect the combination of diuretics, angiotensin receptor john paul combined with significant weight loss resulted in a destruction of the autoregulation of kidney and renal hypoperfusion. I will replace his potassium, hold off hydrochlorothiazide, which is probably causing hypokalemia as well and also hold off losartan. Continue with volume expansion to restore isovolemia. We will continue to follow closely his kidney function and electrolytes along with the medical team. Thank you for allowing me to participate in the care of this patient. Guillermo Natarajan MD GF/MODL / [id number]
--- NOTE | 2021-07-08 14:26 | P.EN_ITS ---
Event Note Date of Service: 07/08/21 Event Note: 61-year-old male with a past medical history of hypertension, hype rlipidemia, diabetes, anxiety, depression, bipolar disorder, arthritis, GERD, history of tension pneumothorax, history of lung collapse status post surgery, irritable bowel syndrome , BPH, tubular adenoma of the colon, family history of colon cancer/prostate cancer; presented to the hospital today with a chief complaint of headache/ cough/low blood pressure.? Noted to have following conditions Hypokalemia repleted follow BMP Hypotension. Patient noted to be dehydrated.? Likely volume depletion from dehydration.? Improved with IV hydration. Cough/sputum production. No PNA on chest CT REJI. trending down Likely prerenal versus ATN from low blood pressure.? On IV fluids.? Avoid nephrotoxins.? Hold home losartan/hydrochlorothiazide . Weight loss. Patient reports losing about 15 lb in 3-4 weeks.? Reports decreased appetite.? CT abdomen showed no acute findings.? Patient does report significant family history of colon cancer and prostate cancer. He also mentioned that he had a colonoscopy done 3 months ago with a polyp removed otherwise negative. DVT prophylaxis: SCD boots Code status:? Full code Attending Dr. Anne
--- NOTE | 2021-07-08 19:12 | PC.NURSE ---
Pt ambulating to hallway, expressing frustration with lack of pain control. Pt aaox4, reports chronic low back pain 03/24. Pt ambulating with steady independent gait. Pt reports he asked for pain control at 5pm and hasn't rec'd anything. This RN TT mello requesting pain control. Pt offered reassurance, returned to stretcher, stretcher in low locked position, rails raised, call betancur within reach. Pt requesting PO, to be provided.
[2021-07-08] MEDS: Gabapentin 400 MG CAPSULE 800 MG PO (20:10)
[2021-07-08] MEDS: Doxazosin Mesylate 2 MG TABLET 4 MG PO (20:11)
[2021-07-08] MEDS: Atorvastatin Calcium 40 MG TABLET PO (20:11)
[2021-07-08] MEDS: oxyCODONE HCl Immed Release 5 MG TABLET PO (20:11)
[2021-07-08] MEDS: Tamsulosin HCL 0.4 MG CAPSULE PO (20:11)
[2021-07-09] MEDS: 0.9 % Sodium Chloride Flush 3 ML SYRINGE IVFLUSH (01:13)
[2021-07-09] MEDS: 0.9 % Sodium Chloride 1,000 ML 100 ML IVCONT (01:13)
[2021-07-09] MEDS: oxyCODONE HCl Immed Release 5 MG TABLET PO (02:22)
[2021-07-09 05:12] VITALS: BP 157/89; PULSE 75; RESP 18; TEMP 36.6; O2SAT 98
[2021-07-09] MEDS: Acetaminophen 325 MG TABLET 650 MG PO (05:36)
[2021-07-09] MEDS: Omeprazole 40 MG CAPSULE.DR PO (05:36)
[2021-07-09 08:04] LABS: Hematocrit 39.4 % (42.0-52.0); Hemoglobin 13.1 g/dl (14.0-18.0); Mean Corpuscular HGB Conc 33.2 g/dl (31.0-36.0); Mean Corpuscular Hemoglobin 29.3 pg (27.0-33.0); Mean Corpuscular Volume 88.1 fL (80.0-98.0); Mean Platelet Volume 10.1 fL (9.4-12.4); Platelet Count 260 X10*3/uL (160-400); Red Blood Count 4.47 X10*6/uL (4.60-5.80); Red Cell Distribution Width 12.8 % (11.0-16.0); White Blood Count 9.4 X10*3/uL (4.8-10.8)
--- NOTE | 2021-07-09 08:06 | PHA.MEDREC ---
Pharmacy Consult ? Medication Reconciliation RN completed med rec, pharmacy reviewed. No issues.
[2021-07-09 08:25] LABS: Anion Gap 10 (12-20); Blood Urea Nitrogen 20 mg/dL (9-16); Carbon Dioxide 29 mmol/L (22-29); Chloride 105 mmol/L (96-108); Creatinine Clr Calc Pharmacy 87.7; Estimated Glomerular Filt Rate > 60; Glucose Random 99 mg/dL (60-115); Sodium 140 mmol/L (135-145)
[2021-07-09] MEDS: Gabapentin 400 MG CAPSULE 800 MG PO (08:53)
[2021-07-09] MEDS: Aspirin Enteric Coated 81 MG TABLET.DR PO (08:54)
[2021-07-09] MEDS: DULoxetine HCl 60 MG CAPSULE.DR PO (08:54)
[2021-07-09] MEDS: Finasteride 5 MG TABLET PO (08:54)
[2021-07-09 09:35] VITALS: BP 154/91; PULSE 74; RESP 18; TEMP 36.7; O2SAT 97
--- NOTE | 2021-07-09 09:40 | P.DS_ITS ---
DS: Providers Provider Date of Service: 07/09/21 Date of admission: 07/08/21 03:53 Primary care physician: Unknown Physician Consults: 07/08/21 03:53 Consult to Nephrology Routine Consulting Provider: Louie Rivera Reason for consultation: reji Attending physician on discharge: [facility] Discharging clinician: Cat Meyer DS: Diagnosis Discharge Diagnosis (1) REJI (acute kidney injury): Status: Acute (2) Hypokalemia: Status: Acute DS: Summary Hospital Course Hospital Course: HP as per admitting provider 61-year-old male with a past medical history of hypertension, hyperlipidemia, diabetes, anxiety, depression, bipolar disorder, arthritis, GERD, history of tension pneumothorax, history of lung collapse status post surgery, irritable bowel syndrome , BPH, tubular adenoma of the colon, family history of colon cancer/prostate cancer; presented to the hospital today with a chief complaint of headache.? Patient reported that he presented to the hospital yesterday with a chief complaint of chest pain, had routine workup done and was sent home; and today he had glass of cathie; later he felt headache in the back of the head and not feeling well; noted to have blood pressure systolic in 70s; came to the ER for further evaluation.?Mentions that he has been having cough with intermittent greenish to white sputum production for about 4 days.? Denies any nausea vomiting or diarrhea.?Currently denies any chest pain or palpitations.? Denies any lightheadedness or dizziness.?Denies any blurry visions, numbness tingling or focal weakness.? Reports his headache improved at the time of my interview.?Patient reports that over the past 3-4 weeks he has been having decreased appetite and lost about 15 lb;Denies any significant smoking history of alcohol history.? Review of all other systems is negative except mentioned above ER course:Per ER team patient noted of benign examination; troponins negative; EKG nonischemic; on labs noted to have elevated creatinine of 2.3; given IV fluids; on presentation patient noted to have blood pressure in 70s systolic; given IV fluids with improvement in blood pressure; urinalysis was negative; chest x-ray from 07/06/2021 was negative; admitted to the hospital for further management REJI. Secondary to renal hypoperfusion in the setting of low blood pressure. Seen and evaluated by nephrology. His HCTZ and Losartan were held and his renal function improved significantly with IV fluids. He should follow up with his primary care provider for re-evaluation of blood pressure medications. Hypokalemia. Resolved. Secondary to HCTZ. Repleted and HCTZ stopped. Time Spent with Patient Time attestation: Total time spent providing and/or coordinating discharge services: Discharge coordination time: Greater than 30 minutes Quality: Stroke Does the patient have a stroke diagnosis?: No Physical Exam Verdana 4l Vital Signs: Verdana 4d Verdana 4d Vital Signs: Verdana 4d Verdana 4Bd Last Vital Signs Verdana 4d Yard Stocker New 4d Yard Stocker New 4d Temp 98.0 F 07/09/21 09:35 [place]ocker New 4d Pulse 74 07/09/21 09:35 Yard Stocker NewNew 4d Resp 18 07/09/21 09:35 BP 154/91 H 07/09/21 09:35 Pulse Ox 97 07/09/21 09:35 BMI result Body Mass Index 25.1 Appearing in no acute distress head is normocephalic atraumatic eyes pupils are PERRLA sclera is anicteric mouth throat mucous membranes are intact and moist neck is supple no lymphadenopathy, no JVD noted lung sounds are clear to auscultation heart regular rate rhythm, clear S1, S2 positive bowel sounds, abdomen is soft, nontender neuro patient is alert x3, no focal deficits DS: Data Data Completed and Pending Labs on day of discharge: Laboratory Results - last 24 hr 07/09/21 07/09/21 07:25 07:25 WBC 9.4 RBC 4.47 L Hgb 13.1 L Hct 39.4 L MCV 88.1 MCH 29.3 MCHC 33.2 RDW 12.8 Plt Count 260 MPV 10.1 Absolute Nucleated RBC 0.000 Nucleated RBC % (auto) 0.0 Sodium 140 Potassium 4.0 D Chloride 105 Carbon Dioxide 29 Anion Gap 10 L BUN 20 H Creatinine 0.89 Estim Creat Clear Calc 87.7 Estimated GFR > 60 Random Glucose 99 D Calcium 9.0 Discharge Plan Discharge Anticipated Discharge Date/Time: 07/09/21 09:35 Patient Disposition: Home, Self-Care Discharge Diagnosis: Acute kidney injury hypokalemia Referrals: Physician,Unknown J [Primary Care Provider] - 1 Week Discharge Medications: Continued terazosin 5 mg capsule 5 mg PO BEDTIME 90 Days Qty: 90 RF: 3 atorvastatin 40 mg tablet 1 tab PO BEDTIME RF: 0 fluticasone propion-salmeterol 250-50 mcg/dose blister with device 1 puff inhalation BID RF: 0 albuterol sulfate 2.5 mg /3 mL (0.083 %) solution for nebulization 1 amp inhalation TID PRN (Reason: Shortness Of Breath Or Wheezing) RF: 0 omeprazole 40 mg capsule,delayed release(DR/EC) 1 cap PO BID RF: 0 aspirin 81 mg tablet,delayed release (DR/EC) 1 tab PO QAM RF: 0 tramadol 50 mg tablet 1 tab PO Q8H PRN (Reason: pain) RF: 0 sildenafil [Viagra] 100 mg tablet 1 tab PO DAILY PRN (Reason: Erectile Dysfunction) RF: 0 albuterol sulfate 90 mcg/actuation HFA aerosol inhaler 2 puff PO Q4-6H PRN (Reason: Shortness Of Breath Or Wheezing) RF: 0 amitriptyline 100 mg tablet 1 tab PO BEDTIME RF: 0 duloxetine 60 mg capsule,delayed release(DR/EC) 1 cap PO QAM RF: 0 gabapentin 800 mg tablet 1 tab PO TID RF: 0 tamsulosin 0.4 mg capsule 1 cap PO BEDTIME RF: 0 finasteride 5 mg tablet 1 tab PO DAILY RF: 0 dicyclomine 20 mg tablet 20 mg PO QID 30 Days Qty: 120 RF: 6 Discontinued hydrochlorothiazide 12.5 mg tablet 1 tab PO QAM RF: 0 losartan 100 mg tablet 1 tab PO BEDTIME RF: 0 Diet: advance to usual diet Activity on Discharge: As tolerated Stand Alone Forms: Patient Portal Discharge page Care Plan Goals: Nu further episodes of kidney injury Health Concerns: Acute kidney injury hypokalemia Plan of Treatment: Your Losartan and Hydrochlorothiazide medications were stopped due to kidney injury. Follow up with your primary care provider to assess the need to restart these medications. Assessment: See discharge summary
--- NOTE | 2021-07-09 10:17 | PM.PNNEP ---
Subjective Subjective Date of Service: 07/09/21 Interval history: seen and examined no complaints Physical Exam Vital Signs: Vital Signs: Last Vital Signs Temp 98.0 F 07/09/21 09:35 Pulse 74 07/09/21 09:35 Resp 18 07/09/21 09:35 BP 154/91 H 07/09/21 09:35 Pulse Ox 97 07/09/21 09:35 BMI result Body Mass Index 25.1 Const: General: alert and awake HENMT: Head: Yes normocephalic and Yes atraumatic Neck: Neck: Yes supple Resp: Auscultation: clear to auscultation bilaterally Cardio: Heart sounds: S1 normal heart sound present and S2 normal heart sound present GI: Palpation (GI): Soft to palpation and nontender Extrem: General: No edema Objective Data Labs CBC & Chem 7: 07/09/21 07:25 07/09/21 07:25 Labs: Laboratory Results - last 24 hr 07/09/21 07/09/21 07:25 07:25 WBC 9.4 RBC 4.47 L Hgb 13.1 L Hct 39.4 L MCV 88.1 MCH 29.3 MCHC 33.2 RDW 12.8 Plt Count 260 MPV 10.1 Absolute Nucleated RBC 0.000 Nucleated RBC % (auto) 0.0 Sodium 140 Potassium 4.0 D Chloride 105 Carbon Dioxide 29 Anion Gap 10 L BUN 20 H Creatinine 0.89 Estim Creat Clear Calc 87.7 Estimated GFR > 60 Random Glucose 99 D Calcium 9.0 Procedures Date of Service Date of Service: 07/09/21 Assessment & Plan Assessment and plan (1) REJI (acute kidney injury): Status: Acute (2) Hypokalemia: Status: Acute Assessment and Plan: REJI due to renal hypoperfusion resolved, kidney function normalized combination of ARB, thiazide and significant weight loss resulting in disruption of the auto regulation of the kidneys hypokalemia due to decreased total body store and thiazide resolved REC add amlodipine 2.5 mg daily if BP remains high discontinue IVF hold HCTZ and losartan follow kidney function and electrolytes Time Spent With Patient Time: Total time spent is greater than 50% in coordination of care (as documented) at patient's floor/unit and/or counseling patient: Progress Note: Quality Stroke Does the patient have a stroke diagnosis?: No
== END 2021-07-09 10:43 | disposition home or self-care (01) | DRG 684 ==
LOC: HO.ED 23:30 → HO.EDOVER 07-08 04:02
PROVIDERS: Admitting Provider Hospitalist; Emergency Provider Internal Medicine; Visit Provider Nurse Practitioner Acute Care
DX: N17.0 Acute kidney failure with tubular necrosis (principal); E78.5 Hyperlipidemia, unspecified; F41.9 Anxiety disorder, unspecified; F32.A Depression, unspecified; K21.9 Gastro-esophageal reflux disease without esophagitis; E87.6 Hypokalemia; E11.9 Type 2 diabetes mellitus without complications; E86.0 Dehydration; I95.9 Hypotension, unspecified; R63.4 Abnormal weight loss; Z68.25 Body mass index [BMI] 25.0-25.9, adult; Z20.822 Contact with and (suspected) exposure to COVID-19; Z79.51 Long term (current) use of inhaled steroids; Z79.891 Long term (current) use of opiate analgesic; Z79.899 Other long term (current) drug therapy
CPT/HCPCS: 0241U; 36415; 71250; 76775; 80048; 80053; 81003; 83605; 84484; 85025; 85027; 93005; 94640; 94644; 99285

== ENCOUNTER 2021-07-22 06:46 | Emergency (ER) | payer OTHER, SELFPAY ==
[2021-07-22 07:21] VITALS: BP 116/82; BP 166/106; PULSE 97; RESP 20; TEMP 36.2; O2SAT 97; BMI 25.1
== END 2021-07-22 11:32 | disposition left against medical advice (07) ==
PROVIDERS: Emergency Provider Emergency Medicine
DX: R07.9 Chest pain, unspecified (principal); I10 Essential (primary) hypertension
CPT/HCPCS: 99281; 99282

== ENCOUNTER 2021-08-01 10:06 | Outpatient (REF) | payer OTHER, SELFPAY ==
--- NOTE | ~2021-08-01 | XR_ITS ---
EXAMINATION: XR CHEST CLINICAL INFORMATION: Right-sided chest pain for 2 weeks. Central hypertension. COMPARISON: Chest radiographs 07/06/2021, 06/17/2021, 06/14/2020; CT chest 07/08/2021 TECHNIQUE: 2 views of the chest were obtained. FINDINGS: Scattered bilateral mild linear scarring similar to prior studies. No airspace consolidation or interval pleural reaction or effusion. No lobar or segmental airspace consolidation or groundglass opacity. The heart is normal in size. The vascularity is normal. The hilar and mediastinal contours and visualized bony structures are stable. Fine linear calcification right anterior base stable. XR/XR chest 2V IMPRESSION: No acute intrathoracic disease.
== END 2021-08-01 10:07 | disposition home or self-care (01) ==
LOC: HO.XRAY 10:06
PROVIDERS: PCP Internal Medicine; Visit Provider Internal Medicine
DX: J43.9 Emphysema, unspecified (principal); I10 Essential (primary) hypertension
CPT/HCPCS: 71046

== ENCOUNTER 2021-08-31 19:21 | Emergency (ER) | payer OTHER, SELFPAY ==
--- NOTE | ~2021-08-31 | XR_ITS ---
EXAMINATION: XR CHEST CLINICAL INFORMATION: Chest pain. COMPARISON: Chest radiograph dated from 08/01/2021. TECHNIQUE: PA view of the chest was obtained. FINDINGS: Scattered interstitial irregularity and parenchymal distortion are similar to prior studies. No new focal airspace opacities, pleural effusions or pneumothorax. The cardiomediastinal silhouette is within normal limits. Chronic right-sided rib fractures. No acute osseous abnormalities. XR/XR chest 1V IMPRESSION: No acute cardiopulmonary findings.
[2021-08-31 19:40] VITALS: BP 146/92; PULSE 87; RESP 20; TEMP 36.8; O2SAT 96; BMI 25.8
--- NOTE | 2021-08-31 19:45 | ECG_ITS ---
Test Reason : SOB Blood Pressure : / mmHG Vent. Rate : 084 BPM Atrial Rate : 084 BPM P-R Int : 146 ms QRS Dur : 098 ms QT Int : 386 ms P-R-T Axes : 041 002 027 degrees QTc Int : 456 ms Normal sinus rhythm Normal ECG When compared with ECG of 07-JUL-2021 23:46, No significant change was found Referred By: Generic ED Physician Electronically Signed By:KENDALL LUCERO MD
[2021-08-31 20:10] LABS: MANUAL DIFF FLAG NO
[2021-08-31 20:11] LABS: Basophils Percent Auto 0.4 % (0-2); Eosinophils Absolute Auto 0.1 X10*3/uL (0.0-0.4); Eosinophils Percent Auto 1.3 % (0-4); Hematocrit 43.4 % (42.0-52.0); Hemoglobin 15.2 g/dl (14.0-18.0); Imm Gran Abs Auto 0.01 X10*3/uL (0.00-0.03); Imm Gran Pct Auto 0.1 % (0.0-0.4); Lymphocytes Absolute Auto 1.7 X10*3/uL (1.2-4.9); Lymphocytes Percent Auto 20.9 % (20-40); Mean Corpuscular Hemoglobin 29.8 pg (27.0-33.0); Mean Corpuscular Volume 85.1 fL (80.0-98.0); Mean Platelet Volume 9.8 fL (9.4-12.4); Monocytes Absolute Auto 1.1 X10*3/uL (0.1-1.2); Neutrophils Absolute Auto 5.2 x10*3/uL (2.0-8.3); Neutrophils Percent Auto 64.3 % (45-73); Platelet Count 320 X10*3/uL (160-400); Red Cell Distribution Width 12.9 % (11.0-16.0); White Blood Count 8.2 X10*3/uL (4.8-10.8)
[2021-08-31 20:25] LABS: COVID-19 Test Negative (Negative)
[2021-08-31 20:25] LABS: Anion Gap 12 (12-20); Blood Urea Nitrogen 14 mg/dL (9-16); Calcium 9.6 mg/dL (8.4-10.2); Carbon Dioxide 27 mmol/L (22-29); Chloride 102 mmol/L (96-108); Estimated Glomerular Filt Rate > 60; Glucose Random 151 mg/dL (60-115); Potassium 3.6 mmol/L (3.3-5.1); Sodium 137 mmol/L (135-145)
[2021-08-31 20:32] LABS: Troponin-I High Sensitivity < 3.5 ng/L (<3.5-35.0)
[2021-08-31 23:19] VITALS: BP 123/87; PULSE 84; RESP 18; O2SAT 96
--- NOTE | 2021-08-31 23:30 | ED_ITS ---
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 Patient states he recently had his blood pressure medication adjusted in June. Otherwise, he denies any diarrhea or urinary symptoms. Related Data Home Medications Medication Instructions Recorded Confirmed albuterol sulfate 1 amp INHALATION TID PRN 07/25/20 07/19/21 albuterol sulfate 90 mcg/actuation 2 puff PO Q4-6H PRN 07/25/20 07/19/21 aerosol inhaler amitriptyline 100 mg tablet 1 tab PO BEDTIME 07/25/20 07/19/21 aspirin 81 mg tablet,delayed 1 tab PO QAM 07/25/20 07/19/21 release atorvastatin 40 mg tablet 1 tab PO BEDTIME 07/25/20 07/19/21 fluticasone 250 mcg-salmeterol 50 1 puff INHALATION BID 07/25/20 07/19/21 mcg/dose blistr powdr for inhalation omeprazole 40 mg capsule,delayed 1 cap PO BID 07/25/20 07/19/21 release sildenafil 100 mg tablet (Viagra) 1 tab PO DAILY PRN 07/25/20 07/19/21 tramadol 50 mg tablet 1 tab PO Q8H PRN 07/25/20 07/19/21 duloxetine 60 mg capsule,delayed 1 cap PO QAM 03/28/21 07/19/21 release gabapentin 800 mg tablet 1 tab PO TID 03/28/21 07/19/21 finasteride 5 mg tablet 1 tab PO DAILY 07/08/21 07/19/21 tamsulosin 0.4 mg capsule 1 cap PO BEDTIME 07/08/21 07/19/21 losartan 100 mg tablet 1 tab PO BEDTIME 07/19/21 Previous Rx's Medication Instructions Recorded dicyclomine 20 mg tablet 20 mg PO QID 30 Days #120 tab 02/16/21 terazosin 5 mg capsule 5 mg PO BEDTIME 90 Days #90 cap 04/03/21 prednisone 50 mg tablet 50 mg PO DAILY 4 Days #4 tab 08/31/21 Allergies Allergy/AdvReac Type Severity Reaction Status Date / Time No Known Allergies Allergy Verified 08/31/21 19:40 [No Known Allergies*] Review of Systems Review of Systems: Pertinent positives and negatives as stated in HPI 10 point review of systems is otherwise negative. [facility] Past Medical History Source: nursing notes reviewed Medical History Anxiety Arthritis Asthma Back pain Bipolar 1 disorder Depression Diabetes Elevated cholesterol GERD (gastroesophageal reflux disease) Hypertension IBS (irritable bowel syndrome) Tension pneumothorax, spontaneous Umbilical hernia Surgical History History of lung surgery Hx of colonoscopy Hx of hernia repair Hx of tracheostomy Family History Family History Mother Stomach cancer Brother Prostate cancer Brother Prostate cancer Social History Social History Household Members: None Housing: Apartment Do you presently have visiting nurse or other home services: No Alcohol intake: current Alcohol intake frequency: holidays/special occasions only Patient Tobacco Use Status: Never used Tobacco e-Cigarette/Vaping Use: Never Used Second Hand Smoke Exposure: No Substance Use Type: Former Substance User and Marijuana Advance Directives: No service: No Current occupational status: unemployed Physical Exam Vital Signs: Vital Signs: Last Vital Signs Temp 98.2 F 08/31/21 19:40 Pulse 80 09/01/21 00:13 Resp 20 09/01/21 00:13 BP 123/87 08/31/21 23:19 Pulse Ox 96 08/31/21 23:19 BMI result Body Mass Index 25.8 VITAL SIGNS: Reviewed. GENERAL: Well developed, well nourished, in no acute distress. HEAD: Normocephalic/atraumatic EYES: PERRLA, EOMI EARS: Ext canals without abnormality OROPHARYNX: no oral lesions noted, posterior pharynx clear LUNGS: Normal breath sounds, scattered rhonchi with bilateral mild expiratory wheeze, no tachypnea. SpO2<96> CARDIOVASCULAR: Regular rate and rhythm without noted murmurs, no JVD or lower extremity edema. ABDOMEN: Soft, non-tender, non-distended with bowel sounds. MUSCULOSKELETAL: No tenderness, deformities, or effusions noted on gross inspection. EXTREMITIES: No cyanosis, clubbing or edema. SKIN: Inspection of the skin reveals no rashes NEUROLOGIC: Alert and oriented x 4. Strength and sensation to light touch were grossly intact x 4, otherwise nonfocal Course Course Course Narrative: 61-year-old male with history and clinical presentation and after review of all investigations with apparent asthma exacerbation that is mild in nature. Otherwise, patient was provided with Tylenol for his headache and blood pressure is noted to be within normal limits and patient is otherwise nonfocal. Review of EKG and troponins do not suggest cardiac etiology. On re-evaluation after being treated with prednisone and 1 hour long albuterol treatment patient reports feeling much better. Otherwise patient is discharged home in stable condition with serial troponins negative and no changes on EKG. MDM - Chest Pain Lab Data Result diagrams: 08/31/21 20:03 08/31/21 20:03 Labs: Lab Results 08/31/21 08/31/21 08/31/21 Range/Units 20:03 20:03 20:03 WBC 8.2 (4.8-10.8) X10*3/uL RBC 5.10 (4.60-5.80) X10*6/uL Hgb 15.2 (14.0-18.0) g/dl Hct 43.4 (42.0-52.0) % MCV 85.1 (80.0-98.0) fL MCH 29.8 (27.0-33.0) pg MCHC 35.0 (31.0-36.0) g/dl RDW 12.9 (11.0-16.0) % Plt Count 320 (160-400) X10*3/uL MPV 9.8 (9.4-12.4) fL Immature Gran % (Auto) 0.1 (0.0-0.4) % Neut % (Auto) 64.3 (45-73) % Lymph % (Auto) 20.9 (20-40) % Jess[place] % (Auto) 13.0 H (2-11) % Eos % (Auto) 1.3 (0-4) % Baso % (Auto) 0.4 (0-2) % Lymph # (Auto) 1.7 (1.2-4.9) X10*3/uL Jess[place] # (Auto) 1.1 (0.1-1.2) X10*3/uL Eos # (Auto) 0.1 (0.0-0.4) X10*3/uL Baso # (Auto) 0.0 (0.0-0.2) X10*3/uL Abs Immat Gran (auto) 0.01 (0.00-0.03) X10*3/uL Absolute Neuts (auto) 5.2 (2.0-8.3) x10*3/uL Absolute Nucleated RBC 0.000 (0.0-0.012) X10*3/uL Nucleated RBC % (auto) 0.0 (0.0-0.2) /100WBC Sodium 137 (135-145) mmol/L Potassium 3.6 (3.3-5.1) mmol/L Chloride 102 (96-108) mmol/L Carbon Dioxide 27 (22-29) mmol/L Anion Gap 12 (12-20) BUN 14 (9-16) mg/dL Creatinine 0.94 (0.5-1.4) mg/dL Estim Creat Clear Calc 83.0 Estimated GFR > 60 Random Glucose 151 H D (60-115) mg/dL Calcium 9.6 D (8.4-10.2) mg/dL Troponin I High Sens < 3.5 (<3.5-35.0) ng/L COVID-19 (JOSHUA) (Negative) COVID-19 Clin Com 08/31/21 08/31/21 Range/Units 20:05 23:36 WBC (4.8-10.8) X10*3/uL RBC (4.60-5.80) X10*6/uL Hgb (14.0-18.0) g/dl Hct (42.0-52.0) % MCV (80.0-98.0) fL MCH (27.0-33.0) pg MCHC (31.0-36.0) g/dl RDW (11.0-16.0) % Plt Count (160-400) X10*3/uL MPV (9.4-12.4) fL Immature Gran % (Auto) (0.0-0.4) % Neut % (Auto) (45-73) % Lymph % (Auto) (20-40) % Jess[place] % (Auto) (2-11) % Eos % (Auto) (0-4) % Baso % (Auto) (0-2) % Lymph # (Auto) (1.2-4.9) X10*3/uL Jess[place] # (Auto) (0.1-1.2) X10*3/uL Eos # (Auto) (0.0-0.4) X10*3/uL Baso # (Auto) (0.0-0.2) X10*3/uL Abs Immat Gran (auto) (0.00-0.03) X10*3/uL Absolute Neuts (auto) (2.0-8.3) x10*3/uL Absolute Nucleated RBC (0.0-0.012) X10*3/uL Nucleated RBC % (auto) (0.0-0.2) /100WBC Sodium (135-145) mmol/L Potassium (3.3-5.1) mmol/L Chloride (96-108) mmol/L Carbon Dioxide (22-29) mmol/L Anion Gap (12-20) BUN (9-16) mg/dL Creatinine (0.5-1.4) mg/dL Estim Creat Clear Calc Estimated GFR Random Glucose (60-115) mg/dL Calcium (8.4-10.2) mg/dL Troponin I High Sens < 3.5 (<3.5-35.0) ng/L COVID-19 (JOSHUA) Negative (Negative) COVID-19 Clin Com See Note ECG Data ECG #1: Attestation: I personally reviewed and interpreted this ECG as follows: Prior ECG tracings: available for review Interpretation: NSR, HR-84, no STEMI, CA/QRS/QTC are within normal limits. Discharge Plan Discharge Clinical Impression: Asthma exacerbation Patient Disposition: Home, Self-Care Instructions: Asthma (ED) Additional Instructions: 1. Reanudar todos los medicamentos caseros seg?n lo prescrito. 2. Le las pr?ximas 24 horas, aumente la frecuencia de [place] inhalador de albut franci a 2 inhalaciones cada 4 a 6 horas. 3. Recomendar un seguimiento con [place] proveedor de atenci?n primaria en los pr?ximos 1 a 2 d?as para saúl reevaluaci?n y un manejo ambulatorio adicional. Regrese a la jose de emergencias si los s?ntomas empeoran. Prescriptions: New prednisone 50 mg tablet 50 mg PO DAILY 4 Days Qty: 4 0RF No Action terazosin 5 mg capsule 5 mg PO BEDTIME 90 Days Qty: 90 3RF losartan 100 mg tablet 1 tab PO BEDTIME 0RF atorvastatin 40 mg tablet 1 tab PO BEDTIME 0RF fluticasone propion-salmeterol 250-50 mcg/dose blister with device 1 puff inhalation BID 0RF albuterol sulfate 2.5 mg /3 mL (0.083 %) solution for nebulization 1 amp inhalation TID PRN (Reason: Shortness Of Breath Or Wheezing) 0RF omeprazole 40 mg capsule,delayed release(DR/EC) 1 cap PO BID 0RF aspirin 81 mg tablet,delayed release (DR/EC) 1 tab PO QAM 0RF tramadol 50 mg tablet 1 tab PO Q8H PRN (Reason: pain) 0RF sildenafil [Viagra] 100 mg tablet 1 tab PO DAILY PRN (Reason: Erectile Dysfunction) 0RF albuterol sulfate 90 mcg/actuation HFA aerosol inhaler 2 puff PO Q4-6H PRN (Reason: Shortness Of Breath Or Wheezing) 0RF amitriptyline 100 mg tablet 1 tab PO BEDTIME 0RF duloxetine 60 mg capsule,delayed release(DR/EC) 1 cap PO QAM 0RF gabapentin 800 mg tablet 1 tab PO TID 0RF tamsulosin 0.4 mg capsule 1 cap PO BEDTIME 0RF finasteride 5 mg tablet 1 tab PO DAILY 0RF dicyclomine 20 mg tablet 20 mg PO QID 30 Days Qty: 120 6RF Referrals: Chun Michel MD [Primary Care Provider] - 2 days Print Language: Persian
[2021-08-31] MEDS: Acetaminophen 325 MG TABLET 975 MG PO (23:31)
[2021-08-31] MEDS: predniSONE 10 MG TABLET 50 MG PO (23:59)
[2021-09-01 00:01] LABS: Troponin-I High Sensitivity < 3.5 ng/L (<3.5-35.0)
[2021-09-01] MEDS: Albuterol Sulfate (0.083%) 2.5 MG/3 ML VIAL.NEB 10 MG INHALE (00:12)
[2021-09-01 00:13] VITALS: PULSE 80; RESP 20; O2SAT 94
[2021-09-01 01:15] VITALS: BP 127/84; PULSE 102; RESP 18; O2SAT 95
== END 2021-09-01 01:18 | disposition home or self-care (01) ==
PROVIDERS: Emergency Provider Student in an Organized Health Care Education/Training Program; PCP Internal Medicine
DX: J45.901 Unspecified asthma with (acute) exacerbation (principal); R51.9 Headache, unspecified; Z20.822 Contact with and (suspected) exposure to COVID-19; I10 Essential (primary) hypertension; E11.9 Type 2 diabetes mellitus without complications
CPT/HCPCS: 36415; 71045; 80048; 84484; 85025; 87635; 93005; 94640; 94644; 99284

== ENCOUNTER 2021-09-08 07:42 | Day surgery (SDC) | payer OTHER, SELFPAY ==
--- NOTE | 2021-09-07 08:26 | P.CONAN_ITS ---
Documented by User: Tammi Gaxiola NP 09/07/21 08:33 HPI - Anesthesia Eval Consult details Narrative: 61yo M for Hernia Repair Umbilical with Mesh 08/31/21 [facility] with asthma exac - prednisone rx x 4 days h/o trach - ? when PMFSH Active Problems Active Problems: All Active Problems (Updated 09/02/21 @ 00:01 by Georgia Trujillo) REJI (acute kidney injury) (Acute) IBS (irritable bowel syndrome) (Acute) Fecal incontinence (Acute) Tubular adenoma of colon (Acute) Urgency of micturition (Acute) BPH loc w urin obs/LUTS (Acute) Nocturia more than twice per night (Acute) Benign prostatic hyperplasia with weak urinary stream (Acute) Urinary hesitancy (Acute) Umbilical hernia (Acute) GERD (gastroesophageal reflux disease) (Acute) Past Medical History Medical History Anxiety Arthritis Asthma Back pain Bipolar 1 disorder Depression Diabetes Elevated cholesterol GERD (gastroesophageal reflux disease) Hypertension IBS (irritable bowel syndrome) Tension pneumothorax, spontaneous Umbilical hernia Family History Family History Mother Stomach cancer Brother Prostate cancer Brother Prostate cancer Family history of problems with anesthesia: No Surgical History Surgical History History of lung surgery Hx of colonoscopy Hx of hernia repair Hx of tracheostomy History of Problems with Anesthesia: No Social History Social History Household Members: None Housing: Apartment Do you presently have visiting nurse or other home services: No Alcohol intake: current Alcohol intake frequency: holidays/special occasions only Patient Tobacco Use Status: Never used Tobacco e-Cigarette/Vaping Use: Never Used Second Hand Smoke Exposure: No Use of substances other than those prescribed or required for medical reasons: Yes Substance Use Type: Former Substance User and Marijuana Substance Use Frequency: Weekly Are you DNR?: No Advance Directives: No Advance Directives Information Provided: Yes service: No Current occupational status: unemployed Meds Allergies Allergy/AdvReac Type Severity Reaction Status Date / Time No Known Allergies Allergy Verified 09/08/21 08:45 [No Known Allergies*] Home Medications Medication Instructions Recorded Confirmed Last Taken Type albuterol sulfate 1 amp INHALATION TID PRN 07/25/20 07/19/21 Unknown History albuterol sulfate 90 mcg/actuation 2 puff PO Q4-6H PRN 07/25/20 07/19/21 Unknown History aerosol inhaler amitriptyline 100 mg tablet 1 tab PO BEDTIME 07/25/20 07/19/21 Unknown History aspirin 81 mg tablet,delayed 1 tab PO QAM 07/25/20 07/19/21 09/07/21 History release atorvastatin 40 mg tablet 1 tab PO BEDTIME 07/25/20 07/19/21 Unknown History fluticasone 250 mcg-salmeterol 50 1 puff INHALATION BID 07/25/20 07/19/21 Unknown History mcg/dose blistr powdr for inhalation omeprazole 40 mg capsule,delayed 1 cap PO BID 07/25/20 07/19/21 Unknown History release sildenafil 100 mg tablet (Viagra) 1 tab PO DAILY PRN 07/25/20 07/19/21 Unknown History tramadol 50 mg tablet 1 tab PO Q8H PRN 07/25/20 07/19/21 Unknown History duloxetine 60 mg capsule,delayed 1 cap PO QAM 03/28/21 07/19/21 Unknown History release gabapentin 800 mg tablet 1 tab PO TID 03/28/21 07/19/21 Unknown History finasteride 5 mg tablet 1 tab PO DAILY 07/08/21 07/19/21 Unknown History tamsulosin 0.4 mg capsule 1 cap PO BEDTIME 07/08/21 07/19/21 Unknown History amlodipine 10 mg tablet 1 tab PO QAM 09/08/21 09/08/21 Unknown History metoprolol tartrate 50 mg tablet 1 tab PO 09/08/21 Unknown History Exam Exam Date and Time: September 07, 2021 0826 Pertinent Lab Results Pertinent Lab Results: Laboratory Tests 08/31/21 08/31/21 20:03 20:03 WBC 8.2 Hgb 15.2 Hct 43.4 Plt Count 320 Sodium 137 Potassium 3.6 Chloride 102 Carbon Dioxide 27 BUN 14 Creatinine 0.94 Narrative Narrative: EKG 08/2021 Vent. Rate : 084 BPM ? ? Atrial Rate : 084 BPM ?? P-R Int : 146 ms? QRS Dur : 098 ms ? ? QT Int : 386 ms ? ? ? P-R-T Axes : 041 002 027 degrees ?? QTc Int : 456 ms ? Normal sinus rhythm Normal ECG When compared with ECG of 07-JUL-2021 23:46, No significant change was found Assessment and Plan Assessment Anesthesia Assessment: Chart Reviewed Final Anesthetic Review Family History of Problems with Anesthesia: No History of Problems with Anesthesia: No Documented by User: Echo Ramirez MD 09/08/21 08:45 PMF Past Medical History Medical History Anxiety Arthritis Asthma Back pain Bipolar 1 disorder Depression Diabetes Elevated cholesterol GERD (gastroesophageal reflux disease) Hypertension IBS (irritable bowel syndrome) Tension pneumothorax, spontaneous Umbilical hernia Functional capacity: independent ambulation Family History Family History Mother Stomach cancer Brother Prostate cancer Brother Prostate cancer Surgical History Surgical History History of lung surgery Hx of colonoscopy Hx of hernia repair Hx of tracheostomy Social History Social History Household Members: None Housing: Apartment Do you presently have visiting nurse or other home services: No Alcohol intake: current Alcohol intake frequency: holidays/special occasions only Patient Tobacco Use Status: Never used Tobacco e-Cigarette/Vaping Use: Never Used Second Hand Smoke Exposure: No Use of substances other than those prescribed or required for medical reasons: Yes Substance Use Type: Former Substance User and Marijuana Substance Use Frequency: Weekly Are you DNR?: No Advance Directives: No Advance Directives Information Provided: Yes service: No Current occupational status: unemployed Meds Allergies Allergy/AdvReac Type Severity Reaction Status Date / Time No Known Allergies Allergy Verified 09/08/21 08:45 [No Known Allergies*] Home Medications Medication Instructions Recorded Confirmed Last Taken Type albuterol sulfate 1 amp INHALATION TID PRN 07/25/20 07/19/21 Unknown History albuterol sulfate 90 mcg/actuation 2 puff PO Q4-6H PRN 07/25/20 07/19/21 Unknown History aerosol inhaler amitriptyline 100 mg tablet 1 tab PO BEDTIME 07/25/20 07/19/21 Unknown History aspirin 81 mg tablet,delayed 1 tab PO QAM 07/25/20 07/19/21 09/07/21 History release atorvastatin 40 mg tablet 1 tab PO BEDTIME 07/25/20 07/19/21 Unknown History fluticasone 250 mcg-salmeterol 50 1 puff INHALATION BID 07/25/20 07/19/21 Unknown History mcg/dose blistr powdr for inhalation omeprazole 40 mg capsule,delayed 1 cap PO BID 07/25/20 07/19/21 Unknown History release sildenafil 100 mg tablet (Viagra) 1 tab PO DAILY PRN 07/25/20 07/19/21 Unknown History tramadol 50 mg tablet 1 tab PO Q8H PRN 07/25/20 07/19/21 Unknown History duloxetine 60 mg capsule,delayed 1 cap PO QAM 03/28/21 07/19/21 Unknown History release gabapentin 800 mg tablet 1 tab PO TID 03/28/21 07/19/21 Unknown History finasteride 5 mg tablet 1 tab PO DAILY 07/08/21 07/19/21 Unknown History tamsulosin 0.4 mg capsule 1 cap PO BEDTIME 07/08/21 07/19/21 Unknown History amlodipine 10 mg tablet 1 tab PO QAM 09/08/21 09/08/21 Unknown History metoprolol tartrate 50 mg tablet 1 tab PO 09/08/21 Unknown History Exam Airway Mallampati Class: IV TM Dist: >3cm Neck ROM: Full Heart: RRR Lungs: CTA Assessment and Plan Final Anesthetic Review NPO: Yes ASA Class: III Final Preanesthetic Review: No Changes in Pt Med Stat, Meds/Allgs Chart Reviewed, Consent Obtained/Reviewed and Anes Risks/Benef Reviewed Patient Risk: Intermediate Procedure Risk: Low Anesthetic Plan Anesthetic Plan: GA Disposition: Standard PACU
[2021-09-08] VITALS (7 sets, daily range): BP systolic 109–133; BP diastolic 74–87; PULSE 66–73; RESP 10–18; TEMP 36.7–37.1; O2SAT 95–100; BMI 25.8
[2021-09-08] MEDS: Albuterol Sulfate (0.083%) 2.5 MG/3 ML VIAL.NEB INHALE (08:44)
[2021-09-08] MEDS: Lactated Ringers 1,000 ML 100 ML IVCONT (09:11)
--- NOTE | 2021-09-08 09:12 | PC.NURSE ---
Ordered Nebulizer administered by respiratory at bedside preop. Post assessment lung sounds remain diminished with faint wheezes throughout. Dr. Peng made aware.
--- NOTE | 2021-09-08 09:13 | P.CONAN_ITS ---
[facility] Active Problems Active Problems: All Active Problems (Updated 09/02/21 @ 00:01 by Georgia Trujillo) REJI (acute kidney injury) (Acute) IBS (irritable bowel syndrome) (Acute) Fecal incontinence (Acute) Tubular adenoma of colon (Acute) Urgency of micturition (Acute) BPH loc w urin obs/LUTS (Acute) Nocturia more than twice per night (Acute) Benign prostatic hyperplasia with weak urinary stream (Acute) Urinary hesitancy (Acute) Umbilical hernia (Acute) GERD (gastroesophageal reflux disease) (Acute) Past Medical History Medical History Anxiety Arthritis Asthma Back pain Bipolar 1 disorder Depression Diabetes Elevated cholesterol GERD (gastroesophageal reflux disease) Hypertension IBS (irritable bowel syndrome) Tension pneumothorax, spontaneous Umbilical hernia Functional capacity: independent ambulation Family History Family History Mother Stomach cancer Brother Prostate cancer Brother Prostate cancer Family history of problems with anesthesia: No Surgical History Surgical History History of lung surgery Hx of colonoscopy Hx of hernia repair Hx of tracheostomy History of Problems with Anesthesia: No Social History Social History Household Members: None Housing: Apartment Do you presently have visiting nurse or other home services: No Alcohol intake: current Alcohol intake frequency: holidays/special occasions only Patient Tobacco Use Status: Never used Tobacco e-Cigarette/Vaping Use: Never Used Second Hand Smoke Exposure: No Use of substances other than those prescribed or required for medical reasons: Yes Substance Use Type: Former Substance User and Marijuana Substance Use Frequency: Weekly Are you DNR?: No Advance Directives: No Advance Directives Information Provided: Yes service: No Current occupational status: unemployed Meds Allergies Allergy/AdvReac Type Severity Reaction Status Date / Time No Known Allergies Allergy Verified 09/08/21 08:45 [No Known Allergies*] Active Medications: Current Medications Fentanyl (Fentanyl Citrate/Pf 100 Mcg/2 Ml Vial) 25 mcg IVPUSH Q5M PRN; Protocol PRN Reason: Pain, Moderate (Pain Scale 4-6 Lactated Ringer's (Lr) 1,000 mls @ 100 mls/hr IVCONT .Q10H AMY Last Admin: 09/08/21 09:11 Dose: 100 mls/hr Documented by: Ondansetron HCl (Ondansetron Hcl 4 Mg/2 Ml Vial) 4 mg IVPUSH ONCE PRN PRN Reason: Nausea and Vomiting Oxycodone HCl (Oxycodone Hcl Immed Release 5 Mg Tablet) 5 mg PO ONCE PRN PRN Reason: Pain, Severe (Pain Scale 7-10) Home Medications Medication Instructions Recorded Confirmed Last Taken Type albuterol sulfate 1 amp INHALATION TID PRN 07/25/20 07/19/21 Unknown History albuterol sulfate 90 mcg/actuation 2 puff PO Q4-6H PRN 07/25/20 07/19/21 Unknown History aerosol inhaler amitriptyline 100 mg tablet 1 tab PO BEDTIME 07/25/20 07/19/21 Unknown History aspirin 81 mg tablet,delayed 1 tab PO QAM 07/25/20 07/19/21 09/07/21 History release atorvastatin 40 mg tablet 1 tab PO BEDTIME 07/25/20 07/19/21 Unknown History fluticasone 250 mcg-salmeterol 50 1 puff INHALATION BID 07/25/20 07/19/21 Unknown History mcg/dose blistr powdr for inhalation omeprazole 40 mg capsule,delayed 1 cap PO BID 07/25/20 07/19/21 Unknown History release sildenafil 100 mg tablet (Viagra) 1 tab PO DAILY PRN 07/25/20 07/19/21 Unknown History tramadol 50 mg tablet 1 tab PO Q8H PRN 07/25/20 07/19/21 Unknown History duloxetine 60 mg capsule,delayed 1 cap PO QAM 03/28/21 07/19/21 Unknown History release gabapentin 800 mg tablet 1 tab PO TID 03/28/21 07/19/21 Unknown History finasteride 5 mg tablet 1 tab PO DAILY 07/08/21 07/19/21 Unknown History tamsulosin 0.4 mg capsule 1 cap PO BEDTIME 07/08/21 07/19/21 Unknown History amlodipine 10 mg tablet 1 tab PO QAM 09/08/21 09/08/21 Unknown History metoprolol tartrate 50 mg tablet 1 tab PO 09/08/21 Unknown History Exam Exam Date and Time: September 08, 2021 0913 Height,Weight and Vital Signs: Height 5 ft 10 in Weight 81.647 kg Last Vital Signs Temp 98.8 F 09/08/21 08:35 Pulse 68 09/08/21 08:35 Resp 16 09/08/21 08:35 BP 109/74 09/08/21 08:35 Pulse Ox 95 09/08/21 08:35 Airway Mallampati Class: III TM Dist: >3cm Neck ROM: Full Assessment and Plan Assessment Anesthesia Assessment: Anesthesia Plan Discussed and Chart Reviewed Final Anesthetic Review Family History of Problems with Anesthesia: No History of Problems with Anesthesia: No NPO: Yes ASA Class: II Final Preanesthetic Review: No Changes in Pt Med Stat, Meds/Allgs Chart Reviewed, Consent Obtained/Reviewed and Anes Risks/Benef Reviewed Patient Risk: Intermediate Procedure Risk: Low Anesthetic Plan Anesthetic Plan: GA Disposition: Standard PACU
--- NOTE | 2021-09-08 09:17 | P.CONAN_ITS ---
[facility] Active Problems Active Problems: All Active Problems (Updated 09/02/21 @ 00:01 by Georgia Trujillo) REJI (acute kidney injury) (Acute) IBS (irritable bowel syndrome) (Acute) Fecal incontinence (Acute) Tubular adenoma of colon (Acute) Urgency of micturition (Acute) BPH loc w urin obs/LUTS (Acute) Nocturia more than twice per night (Acute) Benign prostatic hyperplasia with weak urinary stream (Acute) Urinary hesitancy (Acute) Umbilical hernia (Acute) GERD (gastroesophageal reflux disease) (Acute) Past Medical History Medical History Anxiety Arthritis Asthma Back pain Bipolar 1 disorder Depression Diabetes Elevated cholesterol GERD (gastroesophageal reflux disease) Hypertension IBS (irritable bowel syndrome) Tension pneumothorax, spontaneous Umbilical hernia Functional capacity: independent ambulation Family History Family History Mother Stomach cancer Brother Prostate cancer Brother Prostate cancer Family history of problems with anesthesia: No Surgical History Surgical History History of lung surgery Hx of colonoscopy Hx of hernia repair Hx of tracheostomy History of Problems with Anesthesia: No Social History Social History Household Members: None Housing: Apartment Do you presently have visiting nurse or other home services: No Alcohol intake: current Alcohol intake frequency: holidays/special occasions only Patient Tobacco Use Status: Never used Tobacco e-Cigarette/Vaping Use: Never Used Second Hand Smoke Exposure: No Use of substances other than those prescribed or required for medical reasons: Yes Substance Use Type: Former Substance User and Marijuana Substance Use Frequency: Weekly Are you DNR?: No Advance Directives: No Advance Directives Information Provided: Yes service: No Current occupational status: unemployed Meds Allergies Allergy/AdvReac Type Severity Reaction Status Date / Time No Known Allergies Allergy Verified 09/08/21 08:45 [No Known Allergies*] Active Medications: Current Medications Fentanyl (Fentanyl Citrate/Pf 100 Mcg/2 Ml Vial) 25 mcg IVPUSH Q5M PRN; Protocol PRN Reason: Pain, Moderate (Pain Scale 4-6 Lactated Ringer's (Lr) 1,000 mls @ 100 mls/hr IVCONT .Q10H AMY Last Admin: 09/08/21 09:11 Dose: 100 mls/hr Documented by: Ondansetron HCl (Ondansetron Hcl 4 Mg/2 Ml Vial) 4 mg IVPUSH ONCE PRN PRN Reason: Nausea and Vomiting Oxycodone HCl (Oxycodone Hcl Immed Release 5 Mg Tablet) 5 mg PO ONCE PRN PRN Reason: Pain, Severe (Pain Scale 7-10) Home Medications Medication Instructions Recorded Confirmed Last Taken Type albuterol sulfate 1 amp INHALATION TID PRN 07/25/20 07/19/21 Unknown History albuterol sulfate 90 mcg/actuation 2 puff PO Q4-6H PRN 07/25/20 07/19/21 Unknown History aerosol inhaler amitriptyline 100 mg tablet 1 tab PO BEDTIME 07/25/20 07/19/21 Unknown History aspirin 81 mg tablet,delayed 1 tab PO QAM 07/25/20 07/19/21 09/07/21 History release atorvastatin 40 mg tablet 1 tab PO BEDTIME 07/25/20 07/19/21 Unknown History fluticasone 250 mcg-salmeterol 50 1 puff INHALATION BID 07/25/20 07/19/21 Unknown History mcg/dose blistr powdr for inhalation omeprazole 40 mg capsule,delayed 1 cap PO BID 07/25/20 07/19/21 Unknown History release sildenafil 100 mg tablet (Viagra) 1 tab PO DAILY PRN 07/25/20 07/19/21 Unknown History tramadol 50 mg tablet 1 tab PO Q8H PRN 07/25/20 07/19/21 Unknown History duloxetine 60 mg capsule,delayed 1 cap PO QAM 03/28/21 07/19/21 Unknown History release gabapentin 800 mg tablet 1 tab PO TID 03/28/21 07/19/21 Unknown History finasteride 5 mg tablet 1 tab PO DAILY 07/08/21 07/19/21 Unknown History tamsulosin 0.4 mg capsule 1 cap PO BEDTIME 07/08/21 07/19/21 Unknown History amlodipine 10 mg tablet 1 tab PO QAM 09/08/21 09/08/21 Unknown History metoprolol tartrate 50 mg tablet 1 tab PO 09/08/21 Unknown History Exam Exam Date and Time: September 08, 2021 0917 Height,Weight and Vital Signs: Height 5 ft 10 in Weight 81.647 kg Last Vital Signs Temp 98.8 F 09/08/21 08:35 Pulse 72 09/08/21 08:45 Resp 18 09/08/21 08:45 BP 109/74 09/08/21 08:35 Pulse Ox 95 09/08/21 08:35 Airway Mallampati Class: III TM Dist: >3cm Neck ROM: Full Assessment and Plan Final Anesthetic Review Family History of Problems with Anesthesia: No History of Problems with Anesthesia: No
--- NOTE | 2021-09-08 09:20 | P.HPSUR_ITS ---
Pre-Procedural Eval Section A Date of Service: 09/08/21 Section B Chief Complaint: umbilical hernia w/o obstruction Details of Present Illness: has had reducible umbilical hernia with increasing discomfort Relevant Social History: None Present Medications: see Short Stay Collaborative assessment Medical History: No relevant PMH ( hypertension, obesity, asthma, GERD) History of Previous Operations: Relevant previous surgery/procedure and date(s) Allergies: Allergies Allergy/AdvReac Type Severity Reaction Status Date / Time No Known Allergies Allergy Verified 09/08/21 08:45 [No Known Allergies*] Review of Systems Sugical H&P ROS: Negative: Constitution, Cardiovascular, Respiratory, Neurological, Psychiatric, Hem-Onc, Allergic/Immunologic, Gastrointestinal, Genitourinary, Musculoskeletal, Integumentary, Endocrine and Eyes/Ears/Nose/Throat Exam Surgical H&P Exam: Normal: HEENT, Normal: Heart, Normal: Lungs, Normal: Extremities, Normal: Skin and Normal: Neurological and Significant Findings: A bdomen ( umbilical hernia reducible about 2.5 cm) Plan Diagnosis/Plan: Unchanged I have reviewed the history and physical and performed a pertinent physical examination on my patient. No changes have occurred unless specified.
--- NOTE | 2021-09-08 09:33 | PC.NURSE ---
Patient states he is unsure what medications he took this AM. He states there were two different pills, both for the heart . Dr. Peng from Anesthesia made aware. Patient also states i do not have diabetes . Verified with him that he has never taken insulin or other diabetic meds and that he has never checked his sugars daily in the past. Per Dr. Ramirez, no need to take blood sugar. Child Daycare Worker at bedside.
--- NOTE | 2021-09-08 10:13 | W.PM.OPN ---
Operative Note Operative Note Date of Service: 09/08/21 Narrative: Preop diagnosis: Umbilical hernia Postop diagnosis: Umbilical hernia Procedure: Repair of umbilical hernia with Ventralex mesh Surgeon: Beto Sims MD corporate administrative assistant: [place] Delgado The patient is a 61-year-old male with a reducible umbilical hernia. In view of discomfort, he wanted to proceed with repair. He understood the technique of the procedure. He was aware of the risks, benefits and alternatives. He was brought to the operating room placed supine on the table under general anesthesia via laryngeal mask airway. The abdomen is prepped and draped in the usual sterile fashion. A surgical time-out was done. The patient received cefazolin 2 g IV preoperatively . I infiltrated the planned line of incision using lidocaine 1%. I made a transverse curvilinear infraumbilical incision using blade 15. This was carried down through the full-thickness of the skin and subcutaneous fat until the hernia was visualized. This contained only fat. I sharply dissected the umbilicus off of the hernia using Metzenbaum scissors to lift this up as a flap. I then proceeded to sharply dissect the neck contents off of the fascial defect using Metzenbaum as well as electrocautery. By doing so was able to free the entire hernia contents and this was completely reduced to the defect. The defect measured about 2 cm. There were no adhesions surrounding the fascial defect. I therefore position a small-sized Ventralex mesh underneath the defect. This was flattened. The Prolene straps were secured to the fascial edges with Prolene 2 sutures. I then trimmed the Prolene straps flush on the fascial level. I then closed the fascial layer with a Maxon 1 [id number] stitch. The umbilicus was tacked down to the the level with the Dexon 0 stitch to re-create the dimple. the subcutaneous layer was reapposed with Dexon 3-0 interrupted sutures. Skin closure was achieved with Dexon 4-0 subcuticular running stitch. The incision was infiltrated with Marcaine 0.5% for postop analgesia. Dressings were applied. The procedure was completed. The patient tolerated The procedure well. There were no immediate complications noted . Initial and final counts of sponges and instruments were correct. Estimated blood loss was about 2 cc . The patient was extubated without difficulty and transferred to the recovery room with stable vital signs.
== END 2021-09-08 11:33 | disposition home or self-care (01) ==
PROVIDERS: PCP Internal Medicine; Visit Provider Surgery
PROC: (CPT 49585; principal; 2021-09-08 09:20)
DX: K42.9 Umbilical hernia without obstruction or gangrene (principal); K21.9 Gastro-esophageal reflux disease without esophagitis; I10 Essential (primary) hypertension; J45.909 Unspecified asthma, uncomplicated; E11.9 Type 2 diabetes mellitus without complications; E78.00 Pure hypercholesterolemia, unspecified; F41.8 Other specified anxiety disorders; F31.9 Bipolar disorder, unspecified; Z79.51 Long term (current) use of inhaled steroids; Z79.82 Long term (current) use of aspirin; Z79.899 Other long term (current) drug therapy
CPT/HCPCS: 49585; 94640; C1781; J0690; J1100; J2250; J2405; J3010

== ENCOUNTER → 2021-09-21 11:26 | Outpatient (BNVA) | payer OTHER, SELFPAY | PROVIDERS: Referring Provider Internal Medicine; Visit Provider Surgery | DX: Z48.815 Encounter for surgical aftercare following surgery on the digestive system (principal); Z87.19 Personal history of other diseases of the digestive system | CPT/HCPCS: 99212 ==

== ENCOUNTER → 2021-10-06 10:00 | Outpatient (BNVA) | payer OTHER, SELFPAY | PROVIDERS: PCP Internal Medicine; Referring Provider Internal Medicine; Visit Provider Nurse Practitioner | DX: K21.9 Gastro-esophageal reflux disease without esophagitis (principal); K58.9 Irritable bowel syndrome, unspecified; R15.9 Full incontinence of feces; Z79.899 Other long term (current) drug therapy | CPT/HCPCS: 99212 ==

== ENCOUNTER 2022-01-31 21:02 | Emergency (ER) | payer OTHER, SELFPAY ==
--- NOTE | ~2022-01-31 | XR_ITS ---
EXAMINATION: XR HAND, RIGHT CLINICAL INFORMATION: Right hand pain. COMPARISON: None TECHNIQUE: PA, lateral, and oblique views of the right hand. An indicator arrow points to the dorsum of the wrist. FINDINGS: A tiny osseous density seen along the proximal margin of the triquetrum. The carpal bones are normally aligned. The distal radius and ulna appear intact. Nonacute deformity in the fifth metacarpal. The remainder the digits are intact. The soft tissues are unremarkable. XR/XR hand RT min 3V IMPRESSION: Tiny osseous density along the proximal margin of the triquetrum is of indeterminate age. Given this correlates the region of pain, an acute avulsion/chip fracture in this region cannot be excluded. Correlate with physical exam.
[2022-01-31 21:18] VITALS: BP 124/78; PULSE 94; RESP 18; TEMP 37.2; O2SAT 100; BMI 24.3
--- NOTE | 2022-02-01 01:17 | ED_ITS ---
HPI - Animal Bite General Chief Complaint: Animal Bite Stated Complaint: lac on hand? Time Seen by Provider: 02/01/22 01:08 Source: patient Mode of arrival: ambulatory Limitations: no limitations History of Present Illness HPI narrative: 61-year-old male presents with a dog bite to the right hand that occurred just prior to arrival. States he was sitting with his friends and family and random dog came up a bit him in the hand. Patient has laceration to the left hand and in between the 3rd and 4th digits from the dog bite. patient has full range of motion, was able to clean out his wound, and applied a Band-Aid. Patient presents because of bleeding would not stop. complaint: animal bite Onset (ago): hour(s) (Within the hour of arrival) Animal: dog Description of animal: unknown animal Mechanism: bite Location - Extremities: right: hand (right) Pain description: dull and constant Severity scale (1-10): 6 Context: unprovoked Associated symptoms: bleeding Treatments prior to arrival: wound dressing(s) and irrigation Related Data Patient tetanus UTD: No Home Medications Medication Instructions Recorded Confirmed albuterol sulfate 2.5 mg/3 mL 1 amp inhalation TID PRN Shortness 07/25/20 07/19/21 (0.083 %) solution for nebulization Of Breath Or Wheezing albuterol sulfate 90 mcg/actuation 2 puff PO Q4-6H PRN Shortness Of 07/25/20 07/19/21 aerosol inhaler Breath Or Wheezing amitriptyline 100 mg tablet 1 tab PO BEDTIME 07/25/20 07/19/21 aspirin 81 mg tablet,delayed 1 tab PO QAM 07/25/20 07/19/21 release atorvastatin 40 mg tablet 1 tab PO BEDTIME 07/25/20 07/19/21 fluticasone 250 mcg-salmeterol 50 1 puff inhalation BID 07/25/20 07/19/21 mcg/dose blistr powdr for inhalation sildenafil 100 mg tablet (Viagra) 1 tab PO DAILY PRN Erectile 07/25/20 07/19/21 Dysfunction tramadol 50 mg tablet 1 tab PO Q8H PRN pain 07/25/20 07/19/21 duloxetine 60 mg capsule,delayed 1 cap PO QAM 03/28/21 07/19/21 release gabapentin 800 mg tablet 1 tab PO TID 03/28/21 07/19/21 finasteride 5 mg tablet 1 tab PO DAILY 07/08/21 07/19/21 tamsulosin 0.4 mg capsule 1 cap PO BEDTIME 07/08/21 07/19/21 amlodipine 10 mg tablet 1 tab PO QAM 09/08/21 09/08/21 metoprolol tartrate 50 mg tablet 1 tab PO 09/08/21 Previous Rx's Medication Instructions Recorded terazosin 5 mg capsule 5 mg PO BEDTIME 90 days #90 caps 04/03/21 prednisone 50 mg tablet 50 mg PO DAILY 4 days #4 tabs 08/31/21 oxycodone-acetaminophen 5 mg-325 1 tab PO Q4-6H PRN Pain, severe 09/08/21 mg tablet (Percocet) #30 tabs dicyclomine 20 mg tablet 20 mg PO QID 30 days #120 tabs 10/06/21 omeprazole 40 mg capsule,delayed 40 mg PO BID #60 caps 10/06/21 release amoxicillin 875 mg-potassium 1 tab PO Q12H 10 days #20 tabs 02/01/22 clavulanate 125 mg tablet Allergies Allergy/AdvReac Type Severity Reaction Status Date / Time No Known Allergies Allergy Verified 10/06/21 10:24 [No Known Allergies*] Review of Systems Review of Systems: Constitutional: No Fever, No Chills ENT/Mouth: No Ear Pain, No Hoarseness, No sore throat Eyes: No Eye Pain, No Swelling, No Redness, No Foreign Body Cardiovascular: No Chest Pain, No SOB Respiratory: No Cough, No Dyspnea Gastrointestinal: No Nausea, No Vomiting, No Diarrhea, No abdominal Pain Genitourinary: No Dysuria, No Hematuria Musculoskeletal: positive right hand pain, No Myalgias, No Joint Swelling Skin: Positive right hand laceration, No Skin lacerations, No rash Neuro: No Weakness, No Numbness, No Paresthesias, No Loss of Consciousness, No Dizziness, No Headache Psych: No Anxiety/Panic, No Depression Heme/Lymph: no easy bruising, no Lymphadenopathy Endocrine: No Polyuria, No Polydipsia Yes all other systems are reviewed and are negative PMFSH Past Medical History Attestation statement: The following information was validated with the patient. Source: old records reviewed Medical History Anxiety Arthritis Asthma Back pain Bipolar 1 disorder Depression Diabetes Elevated cholesterol GERD (gastroesophageal reflux disease) Hypertension IBS (irritable bowel syndrome) Tension pneumothorax, spontaneous Umbilical hernia Surgical History History of lung surgery Hx of colonoscopy Hx of hernia repair Hx of tracheostomy Family History Family History Mother Stomach cancer Brother Prostate cancer Brother Prostate cancer Social History Social History Household Members: None Housing: Apartment Do you presently have visiting nurse or other home services: No Alcohol intake: current Alcohol intake frequency: holidays/special occasions only Patient Tobacco Use Status: Never used Tobacco e-Cigarette/Vaping Use: Never Used Second Hand Smoke Exposure: No Substance Use Type: Former Substance User and Marijuana Advance Directives: No service: No Current occupational status: unemployed Physical Exam ED Vital Signs: Vital Signs - 24 hr 01/31/22 21:18 Temperature 98.9 F Pulse Rate 94 Respiratory Rate 18 Blood Pressure 124/78 Pulse Oximetry 100 Oxygen Delivery Method Room Air BMI result Body Mass Index 24.3 Appearance: Alert. Oriented X3. No acute distress. Eyes: Pupils equal, round and reactive to light. ENT: Pharynx normal. Neck: Normal inspection. Neck supple. CVS: Normal heart rate and rhythm. Pulses normal. Respiratory: No respiratory distress. Expiratory wheezing noted. Abdomen: Soft and nontender. Skin: 1 cm laceration between the thumb and index finger approximately 2 cm from the web space. Puncture wound noted between 3rd and 4th finger web space. other skin warm and dry. Normal skin color. Normal skin turgor. Extremities: No lower extremity edema. Full range of motion to all digits. Brisk capillary refill in equal pulses. No tendon injury noted. Neuro: No motor deficit. No sensory deficit. Cranial nerves 2-12 intact. Course Course Course Narrative: 61-year-old male presents with laceration and puncture wound to his right hand after an unknown dog bit him. It is unknown when his last Tdap vaccine was updated. Patient is complaining of wheezing, does not have his albuterol inhaler, has been in the emergency department waiting room for approximately 5 hours. Patient does have wheezing, expiratory wheezing to auscultation, order for albuterol inhaler. Patient has full range of motion and 5/5 strength to upper extremities. No indication of tendon deficit. Patient is diabetic. 1 cm laceration approximately 1 cm from the center of the web space between the 1st and 2nd digits on the right hand. Wound irrigated with copious amounts of normal saline, benzoin ointment applied. Two Steri-Strips placed to the center of the laceration in a kendra-cross formation. Puncture wound between the 3rd and 4th digits irrigated with normal saline. Left open. Rabies vaccine and immunoglobulin ordered. Tdap vaccine today patient verbalizes need for rabies vaccine, and understands why we are not completely closing the 1 cm laceration. Order for Augmentin for 10 days. hourly manager utilized for all correspondence. Patient verbalized understanding of plans of care discharge home. Verbalized understanding that he must return for subsequent vaccines. Verbalizes understanding signs symptoms indicating need for emergent intervention. MDM - Animal Bite Differential Diagnosis Differential diagnosis: Likely bite by animal, dog bite and rabies contact Medical Records Attestation: I reviewed the patient's medical records. Discharge Plan Discharge Clinical Impression: Dog bite, Rabies contact Patient Disposition: Home, Self-Care Instructions: Animal Bite (ED), Rabies (ED) Additional Instructions: You were evaluated for a dog bite to the right hand. Please take Augmentin 875 mg twice a day for the next 10 days. Keep Steri-Strips in place. They will fall off on their own. Please return for your rabies vaccine series. Return to the emergency department for any new, concerning, or worsening sy mptoms. Prescriptions: New amoxicillin-pot clavulanate 875-125 mg tablet 1 tab PO Q12H 10 Days Qty: 20 0RF No Action terazosin 5 mg capsule 5 mg PO BEDTIME 90 Days Qty: 90 3RF atorvastatin 40 mg tablet 1 tab PO BEDTIME fluticasone propion-salmeterol 250-50 mcg/dose blister with device 1 puff inhalation BID albuterol sulfate 2.5 mg /3 mL (0.083 %) solution for nebulization 1 amp inhalation TID PRN (Reason: Shortness Of Breath Or Wheezing) aspirin 81 mg tablet,delayed release (DR/EC) 1 tab PO QAM tramadol 50 mg tablet 1 tab PO Q8H PRN (Reason: pain) sildenafil [Viagra] 100 mg tablet 1 tab PO DAILY PRN (Reason: Erectile Dysfunction) albuterol sulfate 90 mcg/actuation HFA aerosol inhaler 2 puff PO Q4-6H PRN (Reason: Shortness Of Breath Or Wheezing) amitriptyline 100 mg tablet 1 tab PO BEDTIME duloxetine 60 mg capsule,delayed release(DR/EC) 1 cap PO QAM gabapentin 800 mg tablet 1 tab PO TID tamsulosin 0.4 mg capsule 1 cap PO BEDTIME finasteride 5 mg tablet 1 tab PO DAILY amlodipine 10 mg tablet 1 tab PO QAM metoprolol tartrate 50 mg tablet 1 tab PO oxycodone-acetaminophen [Percocet] 5-325 mg tablet 1 tab PO Q4-6H PRN (Reason: Pain, severe) Qty: 30 0RF prednisone 50 mg tablet 50 mg PO DAILY 4 Days Qty: 4 0RF dicyclomine 20 mg tablet 20 mg PO QID 30 Days Qty: 120 6RF omeprazole 40 mg capsule,delayed release(DR/EC) 40 mg PO BID Qty: 60 6RF Interventions: ED Discharge Assessment Last Done: 02/01/22 02:43 Discharge Date/Time: 02/01/22 02:42
[2022-02-01] MEDS: Amoxicillin/Potassium Clav 875 MG TABLET PO (02:30)
[2022-02-01] MEDS: Rabies Vaccine (PCEC)/PF 1 ML VIAL IM (02:30)
[2022-02-01] MEDS: Rabies Immune Globulin/PF 900 UNIT/3 ML VIAL 1542.22 UNIT IM (02:30)
[2022-02-01] MEDS: Albuterol Sulfate 90 MCG 8 GM INHALER 2 PUFF INHALE (02:35)
== END 2022-02-01 02:42 | disposition home or self-care (01) ==
PROVIDERS: Emergency Provider Emergency Medicine
DX: S61.451A Open bite of right hand, initial encounter (principal); W54.0XXA Bitten by dog, initial encounter; Y93.89 Activity, other specified; Y92.9 Unspecified place or not applicable; Y99.9 Unspecified external cause status; Z20.3 Contact with and (suspected) exposure to rabies
CPT/HCPCS: 73130; 90375; 90471; 90675; 96372; 99284

== ENCOUNTER 2022-06-28 12:37 | Emergency (ER) | payer OTHER, SELFPAY ==
--- NOTE | ~2022-06-28 | XR_ITS ---
EXAMINATION: XR CHEST CLINICAL INFORMATION: Shortness of breath, cough and wheezing COMPARISON: 08/31/2011 TECHNIQUE: 2 views of the chest were obtained. FINDINGS: Heart and pulmonary vessels appear normal. Scattered areas of scarring seen with some pleural opacities, unchanged from prior. No acute consolidations, CHF or pleural effusions are seen. XR/XR chest 2V IMPRESSION: No acute intrathoracic disease.
[2022-06-28 13:11] VITALS: BP 134/78; PULSE 78; RESP 17; TEMP 35.7; O2SAT 97; BMI 23.6
--- NOTE | 2022-06-28 13:11 | ED.ASTHMA ---
HPI - Asthma General Chief Complaint: Asthma <INDIA Fine - Last Filed: 06/28/22 13:16> Stated Complaint: headache asthma <INDIA Fine - Last Filed: 06/28/22 13:16> Time Seen by Provider: 06/28/22 14:04 <INDIA Fine - Last Filed: 06/28/22 13:16> Source: patient <INDIA Villarreal - Last Filed: 06/28/22 15:33> Mode of arrival: ambulatory <INDIA Villarreal - Last Filed: 06/28/22 15:33> Limitations: no limitations <INDIA Villarreal Last Filed: 06/28/22 15:33> History of Present Illness HPI Narrative: 62-year-old male with a history of asthma, IBS, GERD, HTN who presents to the ER for evaluation of shortness of breath and wheezing for the last 2 or 3 days. He states he has had a productive cough, bringing up white and green phlegm. He denies any fevers at home. He has DuoNeb nebulizers at home as well as a rescue inhaler which he has been using with temporary relief in his symptoms. He is a nonsmoker of tobacco products but does smoke marijuana. He denies any history of COPD. He denies any chest pain or dyspnea on exertion. He states when he gets into a coughing fit he has hard time catching his breath. <INDIA Villarreal - Last Filed: 06/28/22 15:33> MD complaint: shortness of breath, wheezing and other ( Productive cough) <INDIA Villarreal - Last Filed: 06/28/22 15:33> Onset (ago): day(s) <INDIA Villarreal - Last Filed: 06/28/22 15:33> Severity: moderate and similar to prior <INDIA Villarreal - Last Filed: 06/28/22 15:33> Context: recent URI <INDIA Villarreal Last Filed: 06/28/22 15:33> Associated symptoms: productive cough <INDIA Villarreal Last Filed: 06/28/22 15:33> Asthma History: history of prior ED visit <INDIA Villarreal - Last Filed: 06/28/22 15:33> Treatments Prior to Arrival: inhaled bronchodilator <INDIA Villarreal - Last Filed: 06/28/22 15:33> Related Data Current Asthma Therapy: inhaled bronchodilator <INDIA Villarreal - Last Filed: 06/28/22 15:33> Home Medications: Home Medications Medication Instructions Recorded Confirmed albuterol sulfate 2.5 mg/3 mL 1 amp inhalation TID PRN Shortness 07/25/20 07/19/21 (0.083 %) solution for nebulization Of Breath Or Wheezing albuterol sulfate 90 mcg/actuation 2 puff PO Q4-6H PRN Shortness Of 07/25/20 07/19/21 aerosol inhaler Breath Or Wheezing amitriptyline 100 mg tablet 1 tab PO BEDTIME 07/25/20 07/19/21 aspirin 81 mg tablet,delayed 1 tab PO QAM 07/25/20 07/19/21 release atorvastatin 40 mg tablet 1 tab PO BEDTIME 07/25/20 07/19/21 fluticasone 250 mcg-salmeterol 50 1 puff inhalation BID 07/25/20 07/19/21 mcg/dose blistr powdr for inhalation sildenafil 100 mg tablet (Viagra) 1 tab PO DAILY PRN Erectile 07/25/20 07/19/21 Dysfunction tramadol 50 mg tablet 1 tab PO Q8H PRN pain 07/25/20 07/19/21 duloxetine 60 mg capsule,delayed 1 cap PO QAM 03/28/21 07/19/21 release gabapentin 800 mg tablet 1 tab PO TID 03/28/21 07/19/21 finasteride 5 mg tablet 1 tab PO DAILY 07/08/21 07/19/21 tamsulosin 0.4 mg capsule 1 cap PO BEDTIME 07/08/21 07/19/21 amlodipine 10 mg tablet 1 tab PO QAM 09/08/21 09/08/21 metoprolol tartrate 50 mg tablet 1 tab PO 09/08/21 Previous Rx's Medication Instructions Recorded terazosin 5 mg capsule 5 mg PO BEDTIME 90 days #90 caps 04/03/21 prednisone 50 mg tablet 50 mg PO DAILY 4 days #4 tabs 08/31/21 oxycodone-acetaminophen 5 mg-325 1 tab PO Q4-6H PRN Pain, severe 09/08/21 mg tablet (Percocet) #30 tabs dicyclomine 20 mg tablet 20 mg PO QID 30 days #120 tabs 10/06/21 omeprazole 40 mg capsule,delayed 40 mg PO BID #60 caps 10/06/21 release amoxicillin 875 mg-potassium 1 tab PO Q12H 10 days #20 tabs 02/01/22 clavulanate 125 mg tablet ipratropium 0.5 mg-albuterol 3 mg 3 ml inhalation Q4H PRN shortness 06/28/22 (2.5 mg base)/3 mL nebulization of breath or wheezing #90 mL soln oseltamivir 75 mg capsule (Tamiflu) 75 mg PO BID 5 days #10 caps 06/28/22 prednisone 20 mg tablet 40 mg PO DAILY #10 tabs 06/28/22 <INDIA Fine - Last Filed: 06/28/22 13:16> Allergies/Adverse Reactions: Allergies Allergy/AdvReac Type Severity Reaction Status Date / Time No Known Allergies Allergy Verified 10/06/21 10:24 [No Known Allergies*] <INDIA Fine - Last Filed: 06/28/22 13:16> Review of Systems Review of Systems: Constitutional: No Fever, No Chills ENT/Mouth: No sore throat, No Rhinorrhea, No Swallowing Difficulty Cardiovascular: No Chest Pain, + SOB, No Orthopnea, No Edema Respiratory: + Cough, + Sputum, + Wheezing, No dyspnea Gastrointestinal: No Nausea, No Vomiting, No Diarrhea, No abdominal Pain Genitourinary: No Dysuria, No Urinary Frequency, No Hematuria Musculoskeletal: No joint pain, + Myalgias Skin: No Skin Lesions, No rash Neuro: No Weakness, No Numbness, No Dizziness, + Headache Heme/Lymph: No Bruising, No Lymphadenopathy <INDIA Villarreal - Last Filed: 06/28/22 15:33> [facility] Past Medical History Medical History: Medical History Anxiety Arthritis Asthma Back pain Bipolar 1 disorder Depression Diabetes Elevated cholesterol GERD (gastroesophageal reflux disease) Hypertension IBS (irritable bowel syndrome) Tension pneumothorax, spontaneous Umbilical hernia <INDIA Fine - Last Filed: 06/28/22 13:16> Surgical History: Surgical History History of lung surgery Hx of colonoscopy Hx of hernia repair Hx of tracheostomy <INDIA Fine - Last Filed: 06/28/22 13:16> Family History Family History: Family History Mother Stomach cancer Brother Prostate cancer Brother Prostate cancer <INDIA Fine - Last Filed: 06/28/22 13:16> Social History Social History: Social History Household Members: None Housing: Apartment Do you presently have visiting nurse or other home services: No Alcohol intake: current Alcohol intake frequency: holidays/special occasions only Patient Tobacco Use Status: Never used Tobacco e-Cigarette/Vaping Use: Never Used Second Hand Smoke Exposure: No Substance Use Type: Former Substance User and Marijuana Advance Directives: Yes Advance Directives on File: Yes Advance Directives Date on File: 03/28/21 service: No Current occupational status: unemployed <INDIA Fine - Last Filed: 06/28/22 13:16> Physical Exam Vital Signs: Vital Signs: Last Vital Signs Temp 96.2 F L 06/28/22 13:11 Pulse 72 06/28/22 14:28 Resp 16 06/28/22 14:28 BP 134/78 06/28/22 13:11 Pulse Ox 97 06/28/22 13:11 O2 Del Method 06/28/22 13:11 BMI result Body Mass Index 23.6 <INDIA Fine - Last Filed: 06/28/22 13:16> Vital Signs: Last Vital Signs Temp 96.2 F L 06/28/22 13:11 Pulse 72 06/28/22 14:28 Resp 16 06/28/22 14:28 BP 134/78 06/28/22 13:11 Pulse Ox 97 06/28/22 13:11 O2 Del Method 06/28/22 13:11 BMI result Body Mass Index 23.6 <INDIA Villarreal - Last Filed: 06/28/22 15:33> Appearance: Alert. Oriented X3. No acute distress. Eyes: Pupils equal, round and reactive to light. ENT: Pharynx normal. Neck: Normal inspection. Neck supple. CVS: Normal heart rate and rhythm. Pulses normal. Respiratory: No respiratory distress. Breath sounds With diffuse expiratory wheezes throughout. No rhonchi or rales. Speaking complete sentences. Abdomen: Soft and nontender. +BS x4 Skin: Skin warm and dry. Normal skin color. Normal skin turgor. No rashes. Extremities: No lower extremity edema. Neuro: Oriented X 3. No motor deficit. No sensory deficit. <INDIA Villarreal - Last Filed: 06/28/22 15:33> Course Course Course Narrative: RME 13:15pm - 62yoM c PMHx asthma as presenting to the ER with complaints of 2-3 days of cough/sob/wheezing despite using his albuterol inhaler, nebulizers prior to arrival. Reports sputum production with yellow/green colored sputum. Denies subjective fevers/chills/fatigue/malaise. Reports a history of pulmonary surgery in the past. Plan: Labs, chest x-ray and patient will be sent to [facility] for breathing treatment further evaluation treatment. <INDIA Fine - Last Filed: 06/28/22 13:16> Reevaluation(s) Reevaluation #1: Patient seen and examined in the treatment room. He has diffuse expiratory wheezes throughout. He is able to speak in complete sentences and is not hypoxic. Will give hour long breathing treatments and oral steroids. Will reassess. Chest x-ray and viral PCR pending. <INDIA Villarreal - Last Filed: 06/28/22 15:33> Reevaluation #2: Labs are unremarkable. Chest x-ray is clear. Aeration improved. Patient found to be positive for influenza A. Given his symptoms will treat with Tamiflu. will treat with course of prednisone as well given his wheezing. Will prescribe refills for his DuoNebs. Instructed to use them every 4 hours while sick. He was given strict return precautions. Comfortable discharge home. <INDIA Villarreal Last Filed: 06/28/22 15:33> Medications Administered Discontinued Medications Generic Name Dose Route Start Last Admin Trade Name Freq PRN Reason Stop Dose Admin Albuterol Sulfate 7.5 mg/ 10 mg 06/28/22 13:15 06/28/22 14:26 Albuterol Sulfate 2.5 mg INHALE 06/28/22 13:16 10 mg ONCE ONE Administration Prednisone 60 mg 06/28/22 14:12 06/28/22 14:33 Prednisone 20 Mg Tablet PO 06/28/22 14:13 60 mg ONCE ONE Administration <INDIA Fine - Last Filed: 06/28/22 13:16> Medications Administered Discontinued Medications Generic Name Dose Route Start Last Admin Trade Name Caty PRN Reason Stop Dose Admin Albuterol Sulfate 7.5 mg/ 10 mg 06/28/22 13:15 06/28/22 14:26 Albuterol Sulfate 2.5 mg INHALE 06/28/22 13:16 10 mg ONCE ONE Administration Prednisone 60 mg 06/28/22 14:12 06/28/22 14:33 Prednisone 20 Mg Tablet PO 06/28/22 14:13 60 mg ONCE ONE Administration <INDIA Villarreal - Last Filed: 06/28/22 15:33> Medical Decision Making Lab Data Result Diagrams: : 06/28/22 13:38 06/28/22 13:38 <INDIA Fine - Last Filed: 06/28/22 13:16> Labs: Lab Results 06/28/22 06/28/22 06/28/22 Range/Units 13:38 13:38 13:38 WBC 9.2 (4.8-10.8) X10*3/uL RBC 5.06 (4.60-5.80) X10*6/uL Hgb 15.1 (14.0-18.0) g/dl Hct 44.4 (42.0-52.0) % MCV 87.7 (80.0-98.0) fL MCH 29.8 (27.0-33.0) pg MCHC 34.0 (31.0-36.0) g/dl RDW 13.0 (11.0-16.0) % Plt Count 248 (160-400) X10*3/uL MPV 9.9 (9.4-12.4) fL Immature Gran % (Auto) 0.3 (0.0-0.4) % Neut % (Auto) 64.2 (45-73) % Lymph % (Auto) 14.4 L (20-40) % [place] % (Auto) 20.7 H (2-11) % Eos % (Auto) 0.1 (0-4) % Baso % (Auto) 0.3 (0-2) % Lymph # (Auto) 1.3 (1.2-4.9) X10*3/uL [place] # (Auto) 1.9 H (0.1-1.2) X10*3/uL Eos # (Auto) 0.0 (0.0-0.4) X10*3/uL Baso # (Auto) 0.0 (0.0-0.2) X10*3/uL Abs Immat Gran (auto) 0.03 (0.00-0.03) X10*3/uL Absolute Neuts (auto) 5.9 (2.0-8.3) x10*3/uL Absolute Nucleated RBC 0.000 (0.0-0.012) X10*3/uL Nucleated RBC % (auto) 0.0 (0.0-0.2) /100WBC Smear Tech's Comments VERIFIED Sodium 138 (135-145) mmol/L Potassium 4.4 D (3.3-5.1) mmol/L Chloride 101 (96-108) mmol/L Carbon Dioxide 26 (22-29) mmol/L Anion Gap 15 (12-20) BUN 22 H (9-16) mg/dL Creatinine 1.10 (0.5-1.4) mg/dL Estim Creat Clear Calc 70.0 Estimated GFR > 60 Random Glucose 103 (60-115) mg/dL Calcium 9.8 (8.4-10.2) mg/dL Magnesium 1.6 (1.6-2.6) mg/dL Total Bilirubin 0.4 (0.0-1.0) mg/dL AST 23 (5-37) U/L ALT 21 (0-40) U/L Alkaline Phosphatase 87 (39-117) U/L Total Protein 7.9 (6.5-8.0) g/dL Albumin 4.8 (3.5-5.0) g/dL Influenza Type A (PCR) POSITIVE A (Negative) Influenza Type B (PCR) NEGATIVE (Negative) RSV RNA Qual (PCR) NEGATIVE (Negative) SARS-CoV-2 RNA (RT-PCR) NEGATIVE (Negative) <INDIA Fine - Last Filed: 06/28/22 13:16> Lab Results 06/28/22 06/28/22 06/28/22 Range/Units 13:38 13:38 13:38 WBC 9.2 (4.8-10.8) X10*3/uL RBC 5.06 (4.60-5.80) X10*6/uL Hgb 15.1 (14.0-18.0) g/dl Hct 44.4 (42.0-52.0) % MCV 87.7 (80.0-98.0) fL MCH 29.8 (27.0-33.0) pg MCHC 34.0 (31.0-36.0) g/dl RDW 13.0 (11.0-16.0) % Plt Count 248 (160-400) X10*3/uL MPV 9.9 (9.4-12.4) fL Immature Gran % (Auto) 0.3 (0.0-0.4) % Neut % (Auto) 64.2 (45-73) % Lymph % (Auto) 14.4 L (20-40) % [place] % (Auto) 20.7 H (2-11) % Eos % (Auto) 0.1 (0-4) % Baso % (Auto) 0.3 (0-2) % Lymph # (Auto) 1.3 (1.2-4.9) X10*3/uL [place] # (Auto) 1.9 H (0.1-1.2) X10*3/uL Eos # (Auto) 0.0 (0.0-0.4) X10*3/uL Baso # (Auto) 0.0 (0.0-0.2) X10*3/uL Abs Immat Gran (auto) 0.03 (0.00-0.03) X10*3/uL Absolute Neuts (auto) 5.9 (2.0-8.3) x10*3/uL Absolute Nucleated RBC 0.000 (0.0-0.012) X10*3/uL Nucleated RBC % (auto) 0.0 (0.0-0.2) /100WBC Smear Tech's Comments VERIFIED Sodium 138 (135-145) mmol/L Potassium 4.4 D (3.3-5.1) mmol/L Chloride 101 (96-108) mmol/L Carbon Dioxide 26 (22-29) mmol/L Anion Gap 15 (12-20) BUN 22 H (9-16) mg/dL Creatinine 1.10 (0.5-1.4) mg/dL Estim Creat Clear Calc 70.0 Estimated GFR > 60 Random Glucose 103 (60-115) mg/dL Calcium 9.8 (8.4-10.2) mg/dL Magnesium 1.6 (1.6-2.6) mg/dL Total Bilirubin 0.4 (0.0-1.0) mg/dL AST 23 (5-37) U/L ALT 21 (0-40) U/L Alkaline Phosphatase 87 (39-117) U/L Total Protein 7.9 (6.5-8.0) g/dL Albumin 4.8 (3.5-5.0) g/dL Influenza Type A (PCR) POSITIVE A (Negative) Influenza Type B (PCR) NEGATIVE (Negative) RSV RNA Qual (PCR) NEGATIVE (Negative) SARS-CoV-2 RNA (RT-PCR) NEGATIVE (Negative) <INDIA Villarreal - Last Filed: 06/28/22 15:33> Discharge Plan Discharge Clinical Impression: Asthma with acute exacerbation, Influenza A <INDIA Fine - Last Filed: 06/28/22 13:16> Patient Disposition: Home, Self-Care <INDIA Fine - Last Filed: 06/28/22 13:16> Instructions: Asthma (ED), Influenza (ED) <INDIA Fine - Last Filed: 06/28/22 13:16> Additional Instructions: you tested positive for influenza A. Take the prescribed Tamiflu to help shorten the duration of your symptoms. Complete the entire course. Take the prescribed steroids to help your lungs. Start taking them tomorrow, your given 1st dose today in the ER. Use your nebulizer treatments every 4 hours while your sick and having wheezing. If you have new or worsening symptoms despite all of the above treatments call 911 or come back to the ER for further evaluation. <INDIA Fine - Last Filed: 06/28/22 13:16> Prescriptions: New prednisone 20 mg tablet 40 mg PO DAILY Qty: 10 0RF oseltamivir [Tamiflu] 75 mg capsule 75 mg PO BID 5 Days Qty: 10 0RF ipratropium-albuterol 0.5 mg-3 mg(2.5 mg base)/3 mL solution for nebulization 3 ml inhalation Q4H PRN (Reason: shortness of breath or wheezing) Qty: 90 0RF Rx Instructions: until breathing returns to target peak flow/parameters No Action terazosin 5 mg capsule 5 mg PO BEDTIME 90 Days Qty: 90 3RF atorvastatin 40 mg tablet 1 tab PO BEDTIME fluticasone propion-salmeterol 250-50 mcg/dose blister with device 1 puff inhalation BID albuterol sulfate 2.5 mg /3 mL (0.083 %) solution for nebulization 1 amp inhalation TID PRN (Reason: Shortness Of Breath Or Wheezing) aspirin 81 mg tablet,delayed release (DR/EC) 1 tab PO QAM tramadol 50 mg tablet 1 tab PO Q8H PRN (Reason: pain) sildenafil [Viagra] 100 mg tablet 1 tab PO DAILY PRN (Reason: Erectile Dysfunction) albuterol sulfate 90 mcg/actuation HFA aerosol inhaler 2 puff PO Q4-6H PRN (Reason: Shortness Of Breath Or Wheezing) amitriptyline 100 mg tablet 1 tab PO BEDTIME duloxetine 60 mg capsule,delayed release(DR/EC) 1 cap PO QAM gabapentin 800 mg tablet 1 tab PO TID tamsulosin 0.4 mg capsule 1 cap PO BEDTIME finasteride 5 mg tablet 1 tab PO DAILY amoxicillin-pot clavulanate 875-125 mg tablet 1 tab PO Q12H 10 Days Qty: 20 0RF amlodipine 10 mg tablet 1 tab PO QAM metoprolol tartrate 50 mg tablet 1 tab PO oxycodone-acetaminophen [Percocet] 5-325 mg tablet 1 tab PO Q4-6H PRN (Reason: Pain, severe) Qty: 30 0RF prednisone 50 mg tablet 50 mg PO DAILY 4 Days Qty: 4 0RF dicyclomine 20 mg tablet 20 mg PO QID 30 Days Qty: 120 6RF omeprazole 40 mg capsule,delayed release(DR/EC) 40 mg PO BID Qty: 60 6RF <INDIA Fine - Last Filed: 06/28/22 13:16> Referrals: Chun Michel MD [Primary Care Provider] - <INDIA Fine - Last Filed: 06/28/22 13:16>
[2022-06-28 13:45] LABS: Basophils Percent Auto 0.3 % (0-2); Eosinophils Percent Auto 0.1 % (0-4); Hematocrit 44.4 % (42.0-52.0); Hemoglobin 15.1 g/dl (14.0-18.0); Imm Gran Abs Auto 0.03 X10*3/uL (0.00-0.03); Imm Gran Pct Auto 0.3 % (0.0-0.4); Lymphocytes Absolute Auto 1.3 X10*3/uL (1.2-4.9); Lymphocytes Percent Auto 14.4 % (20-40); MANUAL DIFF FLAG SCAN; Mean Corpuscular Hemoglobin 29.8 pg (27.0-33.0); Mean Corpuscular Volume 87.7 fL (80.0-98.0); Mean Platelet Volume 9.9 fL (9.4-12.4); Monocytes Absolute Auto 1.9 X10*3/uL (0.1-1.2); Monocytes Percent Auto 20.7 % (2-11); Neutrophils Absolute Auto 5.9 x10*3/uL (2.0-8.3); Neutrophils Percent Auto 64.2 % (45-73); Platelet Count 248 X10*3/uL (160-400); Red Blood Count 5.06 X10*6/uL (4.60-5.80); SCAN SMEAR FLAG 1; White Blood Count 9.2 X10*3/uL (4.8-10.8)
[2022-06-28 14:02] LABS: Alanine Aminotransferase 21 U/L (0-40); Albumin Level 4.8 g/dL (3.5-5.0); Alkaline Phosphatase 87 U/L (39-117); Anion Gap 15 (12-20); Aspartate Amino Transferase 23 U/L (5-37); Bilirubin Total 0.4 mg/dL (0.0-1.0); Blood Urea Nitrogen 22 mg/dL (9-16); Calcium 9.8 mg/dL (8.4-10.2); Carbon Dioxide 26 mmol/L (22-29); Chloride 101 mmol/L (96-108); Estimated Glomerular Filt Rate > 60; Glucose Random 103 mg/dL (60-115); Magnesium 1.6 mg/dL (1.6-2.6); Potassium 4.4 mmol/L (3.3-5.1); Sodium 138 mmol/L (135-145); Total Protein 7.9 g/dL (6.5-8.0)
[2022-06-28 14:16] LABS: SLIDE REVIEW VERIFIED
[2022-06-28] MEDS: Albuterol Sulfate 7.5 MG, Albuterol Sulfate (0.083%) 2.5 MG 10 MG INHALE (14:26)
[2022-06-28 14:28] VITALS: PULSE 72; RESP 16; O2SAT 98
[2022-06-28] MEDS: predniSONE 20 MG TABLET 60 MG PO (14:33)
[2022-06-28 14:34] LABS: Influenza A PCR POSITIVE (Negative); Influenza B PCR NEGATIVE (Negative); Resp Syncy Virus RNA Qual PCR NEGATIVE (Negative); SARS COV2 PCR INHOUSE NEGATIVE (Negative)
[2022-06-28] MEDS: Acetaminophen 325 MG TABLET 650 MG PO (15:34)
[2022-06-28] MEDS: Oseltamivir Phosphate 75 MG CAPSULE PO (15:35)
== END 2022-06-28 15:37 | disposition home or self-care (01) ==
PROVIDERS: Physician Assistant Medical; Emergency Provider Student in an Organized Health Care Education/Training Program; PCP Internal Medicine
DX: J10.1 Influenza due to other identified influenza virus with other respiratory manifestations (principal); J45.901 Unspecified asthma with (acute) exacerbation; R51.9 Headache, unspecified; R05.9 Cough, unspecified; J45.909 Unspecified asthma, uncomplicated; Z20.822 Contact with and (suspected) exposure to COVID-19; Z79.899 Other long term (current) drug therapy
CPT/HCPCS: 0241U; 36415; 71046; 80053; 83735; 85025; 94640; 99283; 99284

== ENCOUNTER 2022-08-25 11:59 | Emergency (ER) | payer OTHER, SELFPAY ==
--- NOTE | ~2022-08-25 | CT_ITS ---
EXAMINATION: CT ABDOMEN AND PELVIS WITHOUT CONTRAST CLINICAL INFORMATION: left flank pain . COMPARISON: 11/26/2018. TECHNIQUE: Multidetector volumetric imaging was performed from the superior aspect of the liver through the pubic symphysis without contrast per renal stone protocol. Sagittal and coronal reformatted images were obtained on the technologist workstation. This CT examination was performed using dose optimization techniques as appropriate, variously including the following: *Automated exposure control *Adjustment of mA and/or kV according to patient size (this includes techniques or standardized protocols for targeted exams where dose is matched to indication/reason for exam; i.e. extremities or head) *Use of iterative reconstruction technique DLP: 489 mGy-cm. FINDINGS: LUNG BASES: Linear regions of scarring and atelectasis at the visualized lung bases. LIVER, GALLBLADDER, BILIARY TREE: The non-contrast liver is normal in size, shape, and attenuation. No focal hepatic lesion or biliary ductal dilatation is present. The gallbladder is contracted but otherwise unremarkable with no evidence of radiopaque gallstones, gallbladder wall thickening, or obvious pericholecystic inflammatory changes. PANCREAS: Unremarkable. SPLEEN: Unremarkable. ADRENAL GLANDS: Unremarkable. KIDNEYS AND URETERS: The kidneys are normal in size, shape, and attenuation. No hydronephrosis, hydroureter, or calculi seen. No perinephric stranding. BLADDER: Unremarkable. GASTROINTESTINAL TRACT: Few scattered colonic diverticula are seen. No colonic wall thickening or pericolonic inflammatory changes. Normal-appearing appendix in the right lower quadrant ABDOMINAL WALL: No significant hernia is appreciated. Likely hernia mesh of the umbilical region LYMPHOVASCULAR STRUCTURES: Mild vascular calculation within the aorta iliac system. No bulky adenopathy.. PELVIC VISCERA: Unremarkable. OSSEUS STRUCTURES: Chronic appearing degenerative changes but no acute fracture or dislocation noted CT/CT abdomen pelvis wo IV con IMPRESSION: Chronic appearing changes as described above. I do not appreciate any acute intra-abdominal process.
[2022-08-25 12:06] VITALS: BP 130/76; PULSE 90; RESP 16; TEMP 36.8; O2SAT 97; BMI 23.6
--- NOTE | 2022-08-25 12:09 | ED_ITS ---
HPI - Abdominal Pain General Chief Complaint: Back Pain/Injury <INDIA Fine - Last Filed: 08/25/22 12:14> Stated Complaint: Pain in R side <INDIA Fine - Last Filed: 08/25/22 12:14> Time Seen by Provider: 08/25/22 14:36 <INDIA Fine - Last Filed: 08/25/22 12:14> Source: patient and sign language interpreter <Lisbet Cota NP - Last Filed: 08/25/22 16:44> Mode of arrival: ambulatory <Lisbet Cota NP - Last Filed: 08/25/22 16:44> Limitations: language barrier <Lisbet Cota NP - Last Filed: 08/25/22 16:44> History of Present Illness HPI narrative: 62 yo male with history of GERD, BPH here with left flank pain x 1 week with no injury or trauma. +diarrhea in last 24 hrs (x4). No vomiting, urinary symptoms, fevers, chills. Took tramadol with continued symptoms. <Lisbet Cota NP - Last Filed: 08/25/22 16:44> Related Data Home Medications: Home Medications Medication Instructions Recorded Confirmed albuterol sulfate 2.5 mg/3 mL 1 amp inhalation TID PRN Shortness 07/25/20 07/19/21 (0.083 %) solution for nebulization Of Breath Or Wheezing albuterol sulfate 90 mcg/actuation 2 puff PO Q4-6H PRN Shortness Of 07/25/20 07/19/21 aerosol inhaler Breath Or Wheezing amitriptyline 100 mg tablet 1 tab PO BEDTIME 07/25/20 07/19/21 aspirin 81 mg tablet,delayed 1 tab PO QAM 07/25/20 07/19/21 release atorvastatin 40 mg tablet 1 tab PO BEDTIME 07/25/20 07/19/21 fluticasone 250 mcg-salmeterol 50 1 puff inhalation BID 07/25/20 07/19/21 mcg/dose blistr powdr for inhalation sildenafil 100 mg tablet (Viagra) 1 tab PO DAILY PRN Erectile 07/25/20 07/19/21 Dysfunction tramadol 50 mg tablet 1 tab PO Q8H PRN pain 07/25/20 07/19/21 duloxetine 60 mg capsule,delayed 1 cap PO QAM 03/28/21 07/19/21 release gabapentin 800 mg tablet 1 tab PO TID 03/28/21 07/19/21 finasteride 5 mg tablet 1 tab PO DAILY 07/08/21 07/19/21 tamsulosin 0.4 mg capsule 1 cap PO BEDTIME 07/08/21 07/19/21 amlodipine 10 mg tablet 1 tab PO QAM 09/08/21 09/08/21 metoprolol tartrate 50 mg tablet 1 tab PO 09/08/21 Previous Rx's Medication Instructions Recorded terazosin 5 mg capsule 5 mg PO BEDTIME 90 days #90 caps 04/03/21 prednisone 50 mg tablet 50 mg PO DAILY 4 days #4 tabs 08/31/21 oxycodone-acetaminophen 5 mg-325 1 tab PO Q4-6H PRN Pain, severe 09/08/21 mg tablet (Percocet) #30 tabs dicyclomine 20 mg tablet 20 mg PO QID 30 days #120 tabs 10/06/21 omeprazole 40 mg capsule,delayed 40 mg PO BID #60 caps 10/06/21 release amoxicillin 875 mg-potassium 1 tab PO Q12H 10 days #20 tabs 02/01/22 clavulanate 125 mg tablet ipratropium 0.5 mg-albuterol 3 mg 3 ml inhalation Q4H PRN shortness 06/28/22 (2.5 mg base)/3 mL nebulization of breath or wheezing #90 mL soln oseltamivir 75 mg capsule (Tamiflu) 75 mg PO BID 5 days #10 caps 06/28/22 prednisone 20 mg tablet 40 mg PO DAILY #10 tabs 06/28/22 cyclobenzaprine 10 mg tablet 10 mg PO TID PRN muscle spasm #15 08/25/22 tabs lidocaine 5 % topical patch 1 patch topical DAILY #15 ea 08/25/22 (Lidoderm) <INDIA Fine - Last Filed: 08/25/22 12:14> Allergies/Adverse Reactions: Allergies Allergy/AdvReac Type Severity Reaction Status Date / Time No Known Allergies Allergy Verified 10/06/21 10:24 [No Known Allergies*] <INDIA Fine - Last Filed: 08/25/22 12:14> Review of Systems Review of Systems Yes all other systems are reviewed and are negative <Lisbet Cota NP - Last Filed: 08/25/22 16:44> Constitutional: Reports no additional constitutional complaints, Denies body ache(s), Denies chills, Denies fever(s), Denies headache(s) and Denies weakness <Lisbet Cota [employer]HOU[employer] DIST[employer]BUT[employer] ASSOCIATE - Last Filed: 08/25/22 16:44> Eyes: Reports no additional eye complaints and Denies change in vision <Lisbet Cota [employer]HOU[employer]ATE - Last Filed: 08/25/22 16:44> Reports system reviewed and no additional complaints, except as documented, Denies dizziness, Denies headache(s), Denies nasal congestion, Denies nasal discharge and Denies neck pain <Lisbet Cota [employer]HOU[employer] DIST[employer]BUT[employer] ASS[employer]IATE - Last Filed: 08/25/22 16:44> Cardiovascular: Reports no additional cardiovascular complaints, Denies chest pain, Denies leg edema and Denies dyspnea <Lisbet Cota [employer]HOU[employer] DIST[employer] ASS[employer]IATE - Last Filed: 08/25/22 16:44> Respiratory: Reports no additional respiratory complaints, Denies cough and Denies dyspnea <Lisbet Cota [employer]HOU[employer] DIST[employer]BUT[employer]IATE - Last Filed: 08/25/22 16:44> Gastrointestinal: Reports no additional gastrointestinal complaints, Denies abdominal pain, Reports diarrhea, Denies nausea and Denies vomiting <Lisbet Cota [employer]HOU[employer] DIST[employer]BUT[employer] ASSOCIATE - Last Filed: 08/25/22 16:44> Genitourinary: Denies urinary incontinence <Lisbet Cota [employer]HOU[employer] DIST[employer]IATE - Last Filed: 08/25/22 16:44> Musculoskeletal: Reports no additional musculoskeletal complaints, Reports back pain, Denies arthralgias, Denies joint swelling, Denies neck pain, Denies numbness and Denies tingling <Lisbet Cota [employer]HOU[employer] ASS[employer]IATE - Last Filed: 08/25/22 16:44> Skin/Breast: Reports system reviewed and no additional complaints, except as docu and Denies rash <Lisbet Cota [employer]HOU[employer]ATE - Last Filed: 08/25/22 16:44> Reports system reviewed and no additional complaints, except as documented, Denies dizziness, Denies headache(s), Denies numbness, Denies tingling and Denies weakness <Lisbet Cota NP - Last Filed: 08/25/22 16:44> [facility]LY [facility] Past Medical History Attestation statement: The following information was validated with the patient. <Lisbet Cota NP - Last Filed: 08/25/22 16:44> Source: old records reviewed and nursing notes reviewed <Lisbet Cota NP - Last Filed: 08/25/22 16:44> Medical History: Medical History Anxiety Arthritis Asthma Back pain Bipolar 1 disorder Depression Diabetes Elevated cholesterol GERD (gastroesophageal reflux disease) Hypertension IBS (irritable bowel syndrome) Tension pneumothorax, spontaneous Umbilical hernia <INDIA Fine - Last Filed: 08/25/22 12:14> Surgical History: Surgical History History of lung surgery Hx of colonoscopy Hx of hernia repair Hx of tracheostomy <INDIA Fine - Last Filed: 08/25/22 12:14> Family History Family History: Family History Mother Stomach cancer Brother Prostate cancer Brother Prostate cancer <INDIA Fine - Last Filed: 08/25/22 12:14> Social History Social History: Social History Household Members: None Housing: Apartment Do you presently have visiting nurse or other home services: No Alcohol intake: current Alcohol intake frequency: holidays/special occasions only Patient Tobacco Use Status: Never used Tobacco e-Cigarette/Vaping Use: Never Used Second Hand Smoke Exposure: No Substance Use Type: Former Substance User and Marijuana Advance Directives: Yes Advance Directives on File: Yes Advance Directives Date on File: 03/28/21 service: No Current occupational status: unemployed <INDIA Fine - Last Filed: 08/25/22 12:14> Physical Exam ED Vital Signs: Vital Signs - 24 hr 08/25/22 12:06 08/25/22 14:29 08/25/22 16:00 Temperature 98.3 F 98.1 F 97.6 F Pulse Rate 90 78 80 Respiratory Rate 16 18 17 Blood Pressure 130/76 105/63 120/75 Pulse Oximetry 97 97 98 Oxygen Delivery Method Room Air Room Air Room Air BMI result Body Mass Index 23.6 <INDIA Fine - Last Filed: 08/25/22 12:14> Vital Signs - 24 hr 08/25/22 12:06 08/25/22 14:29 08/25/22 16:00 Temperature 98.3 F 98.1 F 97.6 F Pulse Rate 90 78 80 Respiratory Rate 16 18 17 Blood Pressure 130/76 105/63 120/75 Pulse Oximetry 97 97 98 Oxygen Delivery Method Room Air Room Air Room Air BMI result Body Mass Index 23.6 <Lisbet Cota NP - Last Filed: 08/25/22 16:44> Const General: cooperative, healthy appearing, comfortable and no acute distress <Lisbet Cota NP - Last Filed: 08/25/22 16:44> Orientation/consciousness: patient oriented x3 <Lisbet Cota NP - Last Filed: 08/25/22 16:44> Limitations: no limitations <Lisbet Cota NP - Last Filed: 08/25/22 16:44> HENMT Head: Yes normal to inspection <Lisbet Cota NP - Last Filed: 08/25/22 16:44> Ears: hearing grossly normal bilaterally <Lisbet Cota NP - Last Filed: 08/25/22 16:44> Eyes General: appearance normal, both eyes and all related structures <Lisbet Cota NP - Last Filed: 08/25/22 16:44> Pupils: Equal, round and reactive pupils present <Lisbet Cota NP - Last Filed: 08/25/22 16:44> Neck Neck: Yes normal visual inspection, Yes full ROM and Yes no lymphadenopathy <Lisbet Cota NP - Last Filed: 08/25/22 16:44> Chest Chest palpation & inspection: normal inspection of the chest <Lisbet Cota NP - Last Filed: 08/25/22 16:44> Resp Effort & Inspection: normal respiratory effort <Lisbet Cota [employer]HOU[employer] DIST[employer]BUT[employer] ASS[employer]IATE - Last Filed: 08/25/22 16:44> Auscultation: clear to auscultation bilaterally <Lisbet Cota [employer]HOU[employer] DIST[employer]BUTION ASS[employer]IATE - Last Filed: 08/25/22 16:44> Cardio Rate: regular rate <Lisbet Cota [employer]HOU[employer] DIST[employer]BUTION ASSOCIATE - Last Filed: 08/25/22 16:44> Rhythm: regular rhythm <Lisbet Cota [employer]HOUSE DISTRIBUTION ASSOCIATE - Last Filed: 08/25/22 16:44> Peripheral pulses: Peripheral pulses 2+ throughout <Lisbet Cota [employer]HOU[employer] DISTRIBUTION ASSOCIATE - Last Filed: 08/25/22 16:44> GI Inspection: Yes normal to inspection <Lisbet Cota [employer]HOUSE DISTRIBUTION ASSOCIATE - Last Filed: 08/25/22 16:44> Palpation (GI): Soft to palpation and nontender <Lisbet Cota [employer]HOU[employer] DISTRIBUTION ASSOCIATE - Last Filed: 08/25/22 16:44> Back/Spine/Pelvis Other: there is tenderness the left flank and the left lumbar soft tissue- this is of worsened with movement of the trunk <Lisbet Cota [employer]HOU[employer] DISTRIBUT[employer] ASS[employer]IATE - Last Filed: 08/25/22 16:44> Thoracic/Lumbar Spine: thoracic and lumbar spine normal to inspection <Lisbet Cota [employer]HOUSE DISTRIBUTION ASSOCIATE - Last Filed: 08/25/22 16:44> Skin General skin exam: no rashes or lesions noted <Lisbet Cota [employer]HOU[employer] DISTRIBUTION ASSOCIATE - Last Filed: 08/25/22 16:44> Neuro General: patient oriented x3 and moves all extremities <Lisbet Cota [employer]HOU[employer] DISTRIBUTION ASSOCIATE - Last Filed: 08/25/22 16:44> Cranial nerves: Yes Equal, round and reactive pupils present <Lisbet Cota [employer]HOU[employer] DISTRIBUTION ASSOCIATE - Last Filed: 08/25/22 16:44> Cognition (Neuro): normal cognition <Lisbet Cota [employer]HOUSE DISTRIBUTION ASSOCIATE - Last Filed: 08/25/22 16:44> Gait exam (Neuro): Normal gait present <Lisbet Cota [employer]HOU[employer] DISTRIBUTION ASSOCIATE - Last Filed: 08/25/22 16:44> Extrem General: Yes normal to inspection, Yes no pedal edema and Yes no calf tenderness <Lisbet Cota [employer]HOU[employer] DISTRIBUTION ASSOCIATE - Last Filed: 08/25/22 16:44> Course Course Course Narrative: RME-12:15PM - 62yoM <INDIA Fine - Last Filed: 08/25/22 12:14> labs and urine are unremarkable. CT shows no acute finding. Likely lumbar strain. Patient extremity all home for pain. Will add Flexeril/Lidoderm patches. Reviewed worrisome signs and symptoms of when to return to the emergency room. Comfortable with discharge home <Lisbet Cota NP - Last Filed: 08/25/22 16:44> Medical Decision Making Medical Decision Making [facility] Narrative: 62-year-old male here with atraumatic left flank pain for the last 1 week with some diarrhea yesterday but otherwise no associated symptoms. Will obtain labs, UA, CT <Lisbet Cota NP - Last Filed: 08/25/22 16:44> Differential Diagnosis Differential Diagnoses: The differential diagnosis associated with the presentation includes <Lisbet Cota NP - Last Filed: 08/25/22 16:44> lumbar strain, pyelonephritis, renal colic <Lisbet Cota NP - Last Filed: 08/25/22 16:44> Lab Data [facility] Lab Attestation statement: I reviewed the patient's lab results. <Lisbet Cota NP - Last Filed: 08/25/22 16:44> Result Diagrams: 08/25/22 12:20 08/25/22 12:20 <INDIA Fine - Last Filed: 08/25/22 12:14> Labs: Lab Results 08/25/22 08/25/22 08/25/22 Range/Units 12:20 12:20 12:20 WBC 9.3 (4.8-10.8) X10*3/uL RBC 4.18 L (4.60-5.80) X10*6/uL Hgb 12.4 L (14.0-18.0) g/dl Hct 36.8 L (42.0-52.0) % MCV 88.0 (80.0-98.0) fL MCH 29.7 (27.0-33.0) pg MCHC 33.7 (31.0-36.0) g/dl RDW 13.0 (11.0-16.0) % Plt Count 221 (160-400) X10*3/uL MPV 9.8 (9.4-12.4) fL Immature Gran % (Auto) 0.1 (0.0-0.4) % Neut % (Auto) 55.2 (45-73) % Lymph % (Auto) 23.0 (20-40) % Harding % (Auto) 18.6 H (2-11) % Eos % (Auto) 2.6 (0-4) % Baso % (Auto) 0.5 (0-2) % Lymph # (Auto) 2.1 (1.2-4.9) X10*3/uL Harding # (Auto) 1.7 H (0.1-1.2) X10*3/uL Eos # (Auto) 0.2 (0.0-0.4) X10*3/uL Baso # (Auto) 0.1 (0.0-0.2) X10*3/uL Abs Immat Gran (auto) 0.01 (0.00-0.03) X10*3/uL Absolute Neuts (auto) 5.1 (2.0-8.3) x10*3/uL Absolute Nucleated RBC 0.000 (0.0-0.012) X10*3/uL Nucleated RBC % (auto) 0.0 (0.0-0.2) /100WBC Smear Tech's Comments VERIFIED PT 11.3 (10.0-13.1) SEC INR 1.0 (0.9-1.1) Sodium 140 (135-145) mmol/L Potassium 4.1 (3.3-5.1) mmol/L Chloride 106 (96-108) mmol/L Carbon Dioxide 25 (22-29) mmol/L Anion Gap 13 (12-20) BUN 25 H (9-16) mg/dL Creatinine 1.05 (0.5-1.4) mg/dL Estim Creat Clear Calc 73.3 Estimated GFR > 60 Random Glucose 123 H (60-115) mg/dL Calcium 9.1 D (8.4-10.2) mg/dL Magnesium 1.5 L (1.6-2.6) mg/dL Total Bilirubin 0.2 (0.0-1.0) mg/dL AST 13 (5-37) U/L ALT 13 (0-40) U/L Alkaline Phosphatase 64 (39-117) U/L Total Protein 6.5 (6.5-8.0) g/dL Albumin 4.1 (3.5-5.0) g/dL Lipase 21 (8-78) U/L Urine Color Urine Appearance Urine pH (5.0-9.0) Ur Specific Finley (1.005-1.025) Urine Protein (Neg-Trace) mg/dL Urine Glucose (UA) (Negative) mg/dL Urine Ketones (Negative) mg/dL Urine Blood (Negative) Urine Nitrite (Negative) Ur Leukocyte Esterase (Negative) Influenza Type A (PCR) (Negative) Influenza Type B (PCR) (Negative) RSV RNA Qual (PCR) (Negative) SARS-CoV-2 RNA (RT-PCR) (Negative) 08/25/22 08/25/22 Range/Units 12:20 15:20 WBC (4.8-10.8) X10*3/uL RBC (4.60-5.80) X10*6/uL Hgb (14.0-18.0) g/dl Hct (42.0-52.0) % MCV (80.0-98.0) fL MCH (27.0-33.0) pg MCHC (31.0-36.0) g/dl RDW (11.0-16.0) % Plt Count (160-400) X10*3/uL MPV (9.4-12.4) fL Immature Gran % (Auto) (0.0-0.4) % Neut % (Auto) (45-73) % Lymph % (Auto) (20-40) % Harding % (Auto) (2-11) % Eos % (Auto) (0-4) % Baso % (Auto) (0-2) % Lymph # (Auto) (1.2-4.9) X10*3/uL Harding # (Auto) (0.1-1.2) X10*3/uL Eos # (Auto) (0.0-0.4) X10*3/uL Baso # (Auto) (0.0-0.2) X10*3/uL Abs Immat Gran (auto) (0.00-0.03) X10*3/uL Absolute Neuts (auto) (2.0-8.3) x10*3/uL Absolute Nucleated RBC (0.0-0.012) X10*3/uL Nucleated RBC % (auto) (0.0-0.2) /100WBC Smear Tech's Comments PT (10.0-13.1) SEC INR (0.9-1.1) Sodium (135-145) mmol/L Potassium (3.3-5.1) mmol/L Chloride (96-108) mmol/L Carbon Dioxide (22-29) mmol/L Anion Gap (12-20) BUN (9-16) mg/dL Creatinine (0.5-1.4) mg/dL Estim Creat Clear Calc Estimated GFR Random Glucose (60-115) mg/dL Calcium (8.4-10.2) mg/dL Magnesium (1.6-2.6) mg/dL Total Bilirubin (0.0-1.0) mg/dL AST (5-37) U/L ALT (0-40) U/L Alkaline Phosphatase (39-117) U/L Total Protein (6.5-8.0) g/dL Albumin (3.5-5.0) g/dL Lipase (8-78) U/L Urine Color Yellow Urine Appearance Clear Urine pH 5.5 (5.0-9.0) Ur Specific Finley 1.025 (1.005-1.025) Urine Protein Negative (Neg-Trace) mg/dL Urine Glucose (UA) Negative (Negative) mg/dL Urine Ketones Trace (Negative) mg/dL Urine Blood Negative (Negative) Urine Nitrite Negative (Negative) Ur Leukocyte Esterase Negative (Negative) Influenza Type A (PCR) NEGATIVE (Negative) Influenza Type B (PCR) NEGATIVE (Negative) RSV RNA Qual (PCR) NEGATIVE (Negative) SARS-CoV-2 RNA (RT-PCR) NEGATIVE (Negative) <INDIA Fine - Last Filed: 08/25/22 12:14> Lab Results 08/25/22 08/25/22 08/25/22 Range/Units 12:20 12:20 12:20 WBC 9.3 (4.8-10.8) X10*3/uL RBC 4.18 L (4.60-5.80) X10*6/uL Hgb 12.4 L (14.0-18.0) g/dl Hct 36.8 L (42.0-52.0) % MCV 88.0 (80.0-98.0) fL MCH 29.7 (27.0-33.0) pg MCHC 33.7 (31.0-36.0) g/dl RDW 13.0 (11.0-16.0) % Plt Count 221 (160-400) X10*3/uL MPV 9.8 (9.4-12.4) fL Immature Gran % (Auto) 0.1 (0.0-0.4) % Neut % (Auto) 55.2 (45-73) % Lymph % (Auto) 23.0 (20-40) % Harding % (Auto) 18.6 H (2-11) % Eos % (Auto) 2.6 (0-4) % Baso % (Auto) 0.5 (0-2) % Lymph # (Auto) 2.1 (1.2-4.9) X10*3/uL Harding # (Auto) 1.7 H (0.1-1.2) X10*3/uL Eos # (Auto) 0.2 (0.0-0.4) X10*3/uL Baso # (Auto) 0.1 (0.0-0.2) X10*3/uL Abs Immat Gran (auto) 0.01 (0.00-0.03) X10*3/uL Absolute Neuts (auto) 5.1 (2.0-8.3) x10*3/uL Absolute Nucleated RBC 0.000 (0.0-0.012) X10*3/uL Nucleated RBC % (auto) 0.0 (0.0-0.2) /100WBC Smear Tech's Comments VERIFIED PT 11.3 (10.0-13.1) SEC INR 1.0 (0.9-1.1) Sodium 140 (135-145) mmol/L Potassium 4.1 (3.3-5.1) mmol/L Chloride 106 (96-108) mmol/L Carbon Dioxide 25 (22-29) mmol/L Anion Gap 13 (12-20) BUN 25 H (9-16) mg/dL Creatinine 1.05 (0.5-1.4) mg/dL Estim Creat Clear Calc 73.3 Estimated GFR > 60 Random Glucose 123 H (60-115) mg/dL Calcium 9.1 D (8.4-10.2) mg/dL Magnesium 1.5 L (1.6-2.6) mg/dL Total Bilirubin 0.2 (0.0-1.0) mg/dL AST 13 (5-37) U/L ALT 13 (0-40) U/L Alkaline Phosphatase 64 (39-117) U/L Total Protein 6.5 (6.5-8.0) g/dL Albumin 4.1 (3.5-5.0) g/dL Lipase 21 (8-78) U/L Urine Color Urine Appearance Urine pH (5.0-9.0) Ur Specific Finley (1.005-1.025) Urine Protein (Neg-Trace) mg/dL Urine Glucose (UA) (Negative) mg/dL Urine Ketones (Negative) mg/dL Urine Blood (Negative) Urine Nitrite (Negative) Ur Leukocyte Esterase (Negative) Influenza Type A (PCR) (Negative) Influenza Type B (PCR) (Negative) RSV RNA Qual (PCR) (Negative) SARS-CoV-2 RNA (RT-PCR) (Negative) 08/25/22 08/25/22 Range/Units 12:20 15:20 WBC (4.8-10.8) X10*3/uL RBC (4.60-5.80) X10*6/uL Hgb (14.0-18.0) g/dl Hct (42.0-52.0) % MCV (80.0-98.0) fL MCH (27.0-33.0) pg MCHC (31.0-36.0) g/dl RDW (11.0-16.0) % Plt Count (160-400) X10*3/uL MPV (9.4-12.4) fL Immature Gran % (Auto) (0.0-0.4) % Neut % (Auto) (45-73) % Lymph % (Auto) (20-40) % Harding % (Auto) (2-11) % Eos % (Auto) (0-4) % Baso % (Auto) (0-2) % Lymph # (Auto) (1.2-4.9) X10*3/uL Harding # (Auto) (0.1-1.2) X10*3/uL Eos # (Auto) (0.0-0.4) X10*3/uL Baso # (Auto) (0.0-0.2) X10*3/uL Abs Immat Gran (auto) (0.00-0.03) X10*3/uL Absolute Neuts (auto) (2.0-8.3) x10*3/uL Absolute Nucleated RBC (0.0-0.012) X10*3/uL Nucleated RBC % (auto) (0.0-0.2) /100WBC Smear Tech's Comments PT (10.0-13.1) SEC INR (0.9-1.1) Sodium (135-145) mmol/L Potassium (3.3-5.1) mmol/L Chloride (96-108) mmol/L Carbon Dioxide (22-29) mmol/L Anion Gap (12-20) BUN (9-16) mg/dL Creatinine (0.5-1.4) mg/dL Estim Creat Clear Calc Estimated GFR Random Glucose (60-115) mg/dL Calcium (8.4-10.2) mg/dL Magnesium (1.6-2.6) mg/dL Total Bilirubin (0.0-1.0) mg/dL AST (5-37) U/L ALT (0-40) U/L Alkaline Phosphatase (39-117) U/L Total Protein (6.5-8.0) g/dL Albumin (3.5-5.0) g/dL Lipase (8-78) U/L Urine Color Yellow Urine Appearance Clear Urine pH 5.5 (5.0-9.0) Ur Specific Finley 1.025 (1.005-1.025) Urine Protein Negative (Neg-Trace) mg/dL Urine Glucose (UA) Negative (Negative) mg/dL Urine Ketones Trace (Negative) mg/dL Urine Blood Negative (Negative) Urine Nitrite Negative (Negative) Ur Leukocyte Esterase Negative (Negative) Influenza Type A (PCR) NEGATIVE (Negative) Influenza Type B (PCR) NEGATIVE (Negative) RSV RNA Qual (PCR) NEGATIVE (Negative) SARS-CoV-2 RNA (RT-PCR) NEGATIVE (Negative) <Lisbet Cota NP - Last Filed: 08/25/22 16:44> Independent Interpretation I performed an independent interpretation of an: CT Scan <Lisbet Cota NP - Last Filed: 08/25/22 16:44> Interpretation: independently reviewed the CT scan and agree with radiologist's report <Lisbet Cota NP - Last Filed: 08/25/22 16:44> Radiology Impression Discussion of test interpretation with radiology: I have reviewed the radiologist's reading. <Lisbet Cota NP - Last Filed: 08/25/22 16:44> Radiologist Impression: INDINGS: LUNG BASES: Linear regions of scarring and atelectasis at the visualized lung bases. LIVER, GALLBLADDER, BILIARY TREE: The non-contrast liver is normal in size, shape, and attenuation. No focal hepatic lesion or biliary ductal dilatation is present.? The gallbladder is contracted but otherwise unremarkable with no evidence of radiopaque gallstones, gallbladder wall thickening, or obvious pericholecystic inflammatory changes. PANCREAS: Unremarkable. SPLEEN: Unremarkable. ADRENAL GLANDS: Unremarkable. KIDNEYS AND URETERS: The kidneys are normal in size, shape, and attenuation. No hydronephrosis, hydroureter, or calculi seen. No perinephric stranding. BLADDER: Unremarkable. GASTROINTESTINAL TRACT: Few scattered colonic diverticula are seen. No colonic wall thickening or pericolonic inflammatory changes. Normal-appearing appendix in the right lower quadrant ABDOMINAL WALL: No significant hernia is appreciated. Likely hernia mesh of the umbilical region LYMPHOVASCULAR STRUCTURES: Mild vascular calculation within the aorta iliac system. No bulky adenopathy.. PELVIC VISCERA: Unremarkable. OSSEUS STRUCTURES: Chronic appearing degenerative changes but no acute fracture or dislocation noted CT/CT abdomen pelvis wo IV con IMPRESSION: Chronic appearing changes as described above. I do not appreciate any acute intra-abdominal process. ? <Lisbet Cota NP - Last Filed: 08/25/22 16:44> Medications Administered Discontinued Medications Generic Name Dose Route Start Last Admin Trade Name Freq PRN Reason Stop Dose Admin Ketorolac Tromethamine 30 mg 08/25/22 15:01 08/25/22 15:18 Ketorolac Tromethamine 30 Mg/Ml Vial IM 08/25/22 15:02 30 mg ONCE ONE Administration <INDIA Fine - Last Filed: 08/25/22 12:14> Medications Administered Discontinued Medications Generic Name Dose Route Start Last Admin Trade Name Freq PRN Reason Stop Dose Admin Ketorolac Tromethamine 30 mg 08/25/22 15:01 08/25/22 15:18 Ketorolac Tromethamine 30 Mg/Ml Vial IM 08/25/22 15:02 30 mg ONCE ONE Administration <Lisbet Cota NP - Last Filed: 08/25/22 16:44> Discharge Plan Discharge Clinical Impression: Strain of lumbar region <INDIA Fine - Last Filed: 08/25/22 12:14> Patient Disposition: Home, Self-Care <INDIA Fien - Last Filed: 08/25/22 12:14> Instructions: Acute Low Back Pain (ED), Lower Back Exercises (ED) <INDIA Fine - Last Filed: 08/25/22 12:14> Additional Instructions: Elizabeth tomograf?a computarizada, an?lisis de francis y orina son todos normales. Por favor, evite levantar objetos pesados ??o agacharse. [place] elizabeth tramadol seg?n lo prescrito. Aplique calor o hielo en la espalda seg?n sea necesario. <INDIA Fine - Last Filed: 08/25/22 12:14> Prescriptions: New cyclobenzaprine 10 mg tablet 10 mg PO TID PRN (Reason: muscle spasm) Qty: 15 0RF lidocaine [Lidoderm] 5 % adhesive patch,medicated 1 patch topical DAILY Qty: 15 0RF Rx Instructions: leave on most painful area for up to 12 hrs No Action terazosin 5 mg capsule 5 mg PO BEDTIME 90 Days Qty: 90 3RF atorvastatin 40 mg tablet 1 tab PO BEDTIME fluticasone propion-salmeterol 250-50 mcg/dose blister with device 1 puff inhalation BID albuterol sulfate 2.5 mg /3 mL (0.083 %) solution for nebulization 1 amp inhalation TID PRN (Reason: Shortness Of Breath Or Wheezing) aspirin 81 mg tablet,delayed release (DR/EC) 1 tab PO QAM tramadol 50 mg tablet 1 tab PO Q8H PRN (Reason: pain) sildenafil [Viagra] 100 mg tablet 1 tab PO DAILY PRN (Reason: Erectile Dysfunction) albuterol sulfate 90 mcg/actuation HFA aerosol inhaler 2 puff PO Q4-6H PRN (Reason: Shortness Of Breath Or Wheezing) amitriptyline 100 mg tablet 1 tab PO BEDTIME duloxetine 60 mg capsule,delayed release(DR/EC) 1 cap PO QAM gabapentin 800 mg tablet 1 tab PO TID tamsulosin 0.4 mg capsule 1 cap PO BEDTIME finasteride 5 mg tablet 1 tab PO DAILY amoxicillin-pot clavulanate 875-125 mg tablet 1 tab PO Q12H 10 Days Qty: 20 0RF amlodipine 10 mg tablet 1 tab PO QAM metoprolol tartrate 50 mg tablet 1 tab PO oxycodone-acetaminophen [Percocet] 5-325 mg tablet 1 tab PO Q4-6H PRN (Reason: Pain, severe) Qty: 30 0RF prednisone 50 mg tablet 50 mg PO DAILY 4 Days Qty: 4 0RF prednisone 20 mg tablet 40 mg PO DAILY Qty: 10 0RF oseltamivir [Tamiflu] 75 mg capsule 75 mg PO BID 5 Days Qty: 10 0RF ipratropium-albuterol 0.5 mg-3 mg(2.5 mg base)/3 mL solution for nebulization 3 ml inhalation Q4H PRN (Reason: shortness of breath or wheezing) Qty: 90 0RF Rx Instructions: until breathing returns to target peak flow/parameters dicyclomine 20 mg tablet 20 mg PO QID 30 Days Qty: 120 6RF omeprazole 40 mg capsule,delayed release(DR/EC) 40 mg PO BID Qty: 60 6RF <INDIA Fine - Last Filed: 08/25/22 12:14> Referrals: Chun Michel MD [Primary Care Provider] - 1 week <INDIA Fine - Last Filed: 08/25/22 12:14> Interventions: ED Discharge Assessment Last Done: 08/25/22 16:30 <INDIA Fine - Last Filed: 08/25/22 12:14> Discharge Date/Time: 08/25/22 16:30 <INDIA Fine - Last Filed: 08/25/22 12:14> Print Language: Khmer <INDIA Fine - Last Filed: 08/25/22 12:14>
[2022-08-25 12:27] LABS: Basophils Absolute Auto 0.1 X10*3/uL (0.0-0.2); Basophils Percent Auto 0.5 % (0-2); Eosinophils Absolute Auto 0.2 X10*3/uL (0.0-0.4); Eosinophils Percent Auto 2.6 % (0-4); Hematocrit 36.8 % (42.0-52.0); Hemoglobin 12.4 g/dl (14.0-18.0); Imm Gran Abs Auto 0.01 X10*3/uL (0.00-0.03); Imm Gran Pct Auto 0.1 % (0.0-0.4); Lymphocytes Absolute Auto 2.1 X10*3/uL (1.2-4.9); MANUAL DIFF FLAG SCAN; Mean Corpuscular HGB Conc 33.7 g/dl (31.0-36.0); Mean Corpuscular Hemoglobin 29.7 pg (27.0-33.0); Mean Platelet Volume 9.8 fL (9.4-12.4); Monocytes Absolute Auto 1.7 X10*3/uL (0.1-1.2); Monocytes Percent Auto 18.6 % (2-11); Neutrophils Absolute Auto 5.1 x10*3/uL (2.0-8.3); Neutrophils Percent Auto 55.2 % (45-73); Red Blood Count 4.18 X10*6/uL (4.60-5.80); SCAN SMEAR FLAG 1; White Blood Count 9.3 X10*3/uL (4.8-10.8)
[2022-08-25 12:30] LABS: Platelet Count 221 X10*3/uL (160-400)
[2022-08-25 12:32] LABS: Prothrombin Time 11.3 SEC (10.0-13.1)
[2022-08-25 12:43] LABS: Alanine Aminotransferase 13 U/L (0-40); Albumin Level 4.1 g/dL (3.5-5.0); Alkaline Phosphatase 64 U/L (39-117); Anion Gap 13 (12-20); Aspartate Amino Transferase 13 U/L (5-37); Bilirubin Total 0.2 mg/dL (0.0-1.0); Blood Urea Nitrogen 25 mg/dL (9-16); Calcium 9.1 mg/dL (8.4-10.2); Carbon Dioxide 25 mmol/L (22-29); Chloride 106 mmol/L (96-108); Creatinine Clr Calc Pharmacy 73.3; Estimated Glomerular Filt Rate > 60; Glucose Random 123 mg/dL (60-115); Lipase 21 U/L (8-78); Magnesium 1.5 mg/dL (1.6-2.6); Potassium 4.1 mmol/L (3.3-5.1); Sodium 140 mmol/L (135-145); Total Protein 6.5 g/dL (6.5-8.0)
[2022-08-25 12:53] LABS: SLIDE REVIEW VERIFIED
[2022-08-25 13:06] LABS: Influenza A PCR NEGATIVE (Negative); Influenza B PCR NEGATIVE (Negative); Resp Syncy Virus RNA Qual PCR NEGATIVE (Negative); SARS COV2 PCR INHOUSE NEGATIVE (Negative)
--- NOTE | 2022-08-25 14:17 | PC.NURSE ---
Patient with report of atraumatic back pain has been ongoing for 7 weeks worsening recently. Patient took tramadol at home with marginal effect. Grasp equal patient ambulatory denies loss of bowel or bladder. LS clear no cough noted patient is smoker. Awaiting provider friend at bedside will CTM
[2022-08-25 14:29] VITALS: BP 105/63; PULSE 78; RESP 18; TEMP 36.7; O2SAT 97
--- NOTE | 2022-08-25 15:07 | PC.NURSE ---
Patient to CT
[2022-08-25] MEDS: Ketorolac Tromethamine 30 MG/ML VIAL IM (15:18)
[2022-08-25 15:26] LABS: Appearance Urine Clear; Color Urine Yellow; Glucose Urine UA Negative (Negative); Leukocyte Esterase Urine Negative (Negative); Nitrite Urine Negative (Negative); PH 5.5 (5.0-9.0); Specific Gravity - Urine 1.025 (1.005-1.025); Urine Blood Negative (Negative); Urine Ketones Trace mg/dL (Negative); Urine Protein Negative (Neg-Trace)
--- NOTE | 2022-08-25 15:44 | PC.NURSE ---
Patient sleeping reports some relief from pain medication will CTM
[2022-08-25 16:00] VITALS: BP 120/75; PULSE 80; RESP 17; TEMP 36.4; O2SAT 98
== END 2022-08-25 16:30 | disposition home or self-care (01) ==
PROVIDERS: Physician Assistant Medical; Emergency Provider Student in an Organized Health Care Education/Training Program; PCP Internal Medicine
DX: S39.012A Strain of muscle, fascia and tendon of lower back, initial encounter (principal); X58.XXXA Exposure to other specified factors, initial encounter; Z20.822 Contact with and (suspected) exposure to COVID-19; Z20.828 Contact with and (suspected) exposure to other viral communicable diseases; E11.9 Type 2 diabetes mellitus without complications; I10 Essential (primary) hypertension; E78.5 Hyperlipidemia, unspecified; F17.200 Nicotine dependence, unspecified, uncomplicated; Z79.02 Long term (current) use of antithrombotics/antiplatelets; Z79.899 Other long term (current) drug therapy; Y93.9 Activity, unspecified; Y92.9 Unspecified place or not applicable; Y99.9 Unspecified external cause status
CPT/HCPCS: 0241U; 36415; 74176; 80053; 81003; 83690; 83735; 85025; 85610; 96372; 99284; J1885

== ENCOUNTER → 2022-10-26 13:19 | Outpatient (BNVA) | payer OTHER, SELFPAY | PROVIDERS: PCP Internal Medicine; Visit Provider Hospitalist | DX: J44.9 Chronic obstructive pulmonary disease, unspecified (principal); J45.909 Unspecified asthma, uncomplicated; J98.11 Atelectasis | CPT/HCPCS: 99202 ==

== ENCOUNTER 2022-11-20 13:44 | Outpatient (REF) | payer OTHER, SELFPAY ==
--- NOTE | 2022-11-20 14:28 | PFT_ITS ---
INDICATION: Preop. SPIROMETRY: FEV1 to FVC of 41% with an FEV1 of 1.44 L, which is 43% predicted and an FVC of 3.51 L, which is 78% predicted. No significant response to bronchodilator is noted. Maximum voluntary ventilation 54% predicted. LUNG VOLUMES: Total lung capacity 83% predicted. DIFFUSION CAPACITY: DLCO 81% predicted. COMPARISON: None. INTERPRETATION: There is an obstructive ventilatory defect consistent with severe COPD. No significant response to bronchodilator is noted. Moderate decrease in the maximum voluntary ventilation secondary to likely deconditioning. Lung volumes are low normal. Diffusion capacity is within normal limits. Clinical correlation warranted. MD ALEXANDRO Chavarria/MODLauren / [phone]
== END 2022-11-20 13:45 | disposition home or self-care (01) ==
LOC: HO.RESP 13:44
PROVIDERS: PCP Internal Medicine; Visit Provider Hospitalist
DX: J44.9 Chronic obstructive pulmonary disease, unspecified (principal)
CPT/HCPCS: 94010; 94727; 94729

== ENCOUNTER → 2022-12-03 14:58 | Outpatient (BNVA) | payer OTHER, SELFPAY | PROVIDERS: PCP Internal Medicine; Visit Provider Surgery | DX: L72.0 Epidermal cyst (principal) | CPT/HCPCS: 99212 ==

== ENCOUNTER → 2022-12-13 14:30 | Outpatient (BNVA) | payer OTHER, SELFPAY | PROVIDERS: PCP Internal Medicine; Visit Provider Surgery | DX: L72.0 Epidermal cyst (principal) | CPT/HCPCS: 11402; 88304 ==

== ENCOUNTER → 2022-12-25 15:01 | Outpatient (BNVA) | payer OTHER, SELFPAY | PROVIDERS: PCP Internal Medicine; Visit Provider Surgery | DX: Z48.817 Encounter for surgical aftercare following surgery on the skin and subcutaneous tissue (principal); Z87.2 Personal history of diseases of the skin and subcutaneous tissue | CPT/HCPCS: 99212 ==

== ENCOUNTER 2023-01-22 10:02 | Outpatient (AMB) | payer OTHER, SELFPAY ==
--- NOTE | 2023-01-22 10:11 | MHC.OFFVIS ---
Intake Intake Visit Reasons: 6M PVR Intake Note: Patient is present for PVR/ Urology Med: Finasteride, Terazosin, Sildenafil Antibiotic Allergy: None Blood Thinner: Aspirin PVR: 0ml Allergies No Known Allergies [No Known Allergies*] Allergy (Verified 01/22/23 10:12) HPI HPI Comments History of Present Illness Details Francisco J is Chilean-speaking male. He is a patient of Dr. Brennan. He is seen for the following urologic conditions - lower urinary tract symptoms Chilean translation performed by qualified medical collections Follow-up from urgency with postvoid dribbling Had run out of medications Will restart Does have nocturia with urgency 6 month follow-up Lower urinary tract symptoms Further evaluation of symptoms - urgency with postvoid dribbling - initial improvement with terazosin Current treatment terazosin 5 mg Has post terminal dribbling Cystoscopy 06/04 open bladder neck PFSH Medical History Anxiety Arthritis Asthma Asthma-COPD overlap syndrome Atelectasis Back pain Bipolar 1 disorder Depression Diabetes Elevated cholesterol Epidermal inclusion cyst GERD (gastroesophageal reflux disease) Hypertension IBS (irritable bowel syndrome) Tension pneumothorax, spontaneous Umbilical hernia Surgical History History of excision of mass (12/13/22) History of lung surgery Hx of colonoscopy Hx of hernia repair Hx of tracheostomy Family History Mother Stomach cancer Brother Prostate cancer Brother Prostate cancer Social History Household Members: None Housing: Apartment Do you presently have visiting nurse or other home services: No Alcohol intake: current Alcohol intake frequency: holidays/special occasions only Patient Tobacco Use Status: Never used Tobacco e-Cigarette/Vaping Use: Never Used Second Hand Smoke Exposure: No Substance Use Type: Former Substance User and Marijuana Advance Directives Date on File: 03/28/21 service: No Current occupational status: unemployed Review of Systems Const Denies chills and Denies fever(s) Card Reports no additional complaints and Denies syncope Resp Denies cough GI Denies abdominal pain and Denies heartburn Reports as per HPI and Denies change in libido Neuro Denies syncope Psych Denies change in libido Endo Denies change in libido Physical Exam Const General: cooperative, healthy appearing, comfortable and no acute distress Orientation/consciousness: patient oriented x3 HEENT Face and sinus: Yes normal facial exam Mouth: moist mucous membranes Neck Neck: Yes normal visual inspection, Yes full ROM and Yes trachea midline Chest Chest palpation & inspection: normal inspection of the chest Resp Effort & Inspection: normal respiratory effort, able to speak in complete sentences and no respiratory distress GI Inspection: Yes normal to inspection Back/Spine/Pelvis Cervical Spine: normal cervical lordosis Thoracic/Lumbar Spine: thoracic and lumbar spine normal to inspection Skin General skin exam: no rashes or lesions noted Neuro General: patient oriented x3, gait normal, tone normal and moves all extremities Extrem General: Yes normal to inspection and Yes capillary refill normal Office Procedures Post Void Residual Post Residual Void Post Void Residual (PVR): 0 [id number]-[id number] Void Residual by ultrasound Results AMB Urinalysis, Automated UA Leukoctes 0 Jung/uL Last Edit by Rocio Mcneil [facility] on 01/22/23 10:17 UA Nitrite Negative Last Edit by Rocio Mcneil [facility] on 01/22/23 10:17 UA Urobilinogen 0.2 mg/dL Last Edit by Rocio Mcneil [facility] on 01/22/23 10:17 UA Protein 0 mg/dL Last Edit by Rocio Mcneil [facility] on 01/22/23 10:17 UA pH 6.0 Last Edit by Rocio Mcneil [facility] on 01/22/23 10:17 UA Blood 25 Nestor/uL Last Edit by Rocio Mcneil [facility] on 01/22/23 10:17 UA Specific [place] 1.020 Last Edit by Rocio Mcneil [facility] on 01/22/23 10:17 UA Ketone Negative Last Edit by Rocio Mcneil [facility] on 01/22/23 10:17 UA Bilirubin 0 mg/dL Last Edit by Rocio Mcneil [facility] on 01/22/23 10:17 UA Glucose 0 mg/dL Last Edit by Rocio Mcneil [facility] on 01/22/23 10:17 Results Reviewed Results Reviewed: Laboratory Last Values Urine pH (Auto) 6.0 01/22/23 10:11 Specific [place] (Auto) 1.020 01/22/23 10:11 Urine Protein (Auto) 0 mg/dL 01/22/23 10:11 Glucose (UA)(Auto) 0 mg/dL 01/22/23 10:11 Urine Ketones (Auto) Negative 01/22/23 10:11 Urine Blood (Auto) 25 Nestor/uL 01/22/23 10:11 Urine Nitrite (Auto) Negative 01/22/23 10:11 Urine Bilirubin (Auto) 0 mg/dL 01/22/23 10:11 Urine Urobilinogen (Auto) 0.2 mg/dL 01/22/23 10:11 Leukocyte Esterase (Auto) 0 Jung/uL 01/22/23 10:11 Assessment & Plan Assessment & Plan (1) BPH loc w urin obs/LUTS: Code(s): N40.1 - Benign prostatic hyperplasia with lower urinary tract symptoms (2) Nocturia more than twice per night: Code(s): R35.1 - Nocturia Plan 6 month follow-up Orders: Orders AMB Urinalysis Automated Today Z13.9 - Encounter for screening, unspecified AMB Post Void Residual by ultrasound Today N40.1 - Benign prostatic hyperplasia with lower urinary tract symptoms, R39.12 - Poor urinary stream Patient Instructions: Imaging studies, laboratory and physical exam results were discussed and reviewed in detail. No major barriers to patient understanding were identified. An opportunity to ask questions regarding the treatment plan was provided. All questions were answered. The patient expressed understanding and agreement with the above treatment plan. The patient is aware they should contact our office by phone for worsening of their current condition or the appearance of new urologic symptoms. Compliance is encouraged with any medications and followup testing that is ordered. It is a privilege to participate in the urologic care of your patient. If you have any questions or concerns regarding treatment for the above conditions, or other urologic issues, please do not hesitate to contact me. The office telephone contact is [phone]. This note is constructed using voice recognition software. While every effort has been made to ensure accuracy flight teacher errors may have been included. Yours sincerely, Dr Shahriar Lee MD, [facility] - Urology Providers of Expert, Compassionate Care for the Genitourinary System Coding Level of Care Code Est Pt Level 4 (66019) Diagnoses BPH loc w urin obs/LUTS N40.1 Nocturia more than twice per night R35.1 CPT Codes Post Residual Void - PVR CPT Code: 09693-Aoml Void Residual by ultrasound ([id number])
== END 2023-01-22 10:44 | disposition home or self-care (01) ==
PROVIDERS: PCP Internal Medicine; Visit Provider Urology
DX: N40.1 Benign prostatic hyperplasia with lower urinary tract symptoms (principal); R35.1 Nocturia; R39.15 Urgency of urination
CPT/HCPCS: 99214

== ENCOUNTER → 2023-01-22 10:02 | Outpatient (BNVA) | payer OTHER, SELFPAY | PROVIDERS: PCP Internal Medicine; Visit Provider Urology | DX: N40.1 Benign prostatic hyperplasia with lower urinary tract symptoms (principal); R35.1 Nocturia | CPT/HCPCS: 51798; 99212 ==

== ENCOUNTER 2023-02-08 08:57 | Outpatient (REF) | payer OTHER, SELFPAY ==
--- NOTE | ~2023-02-08 | CT_ITS ---
EXAMINATION: CT ABDOMEN AND PELVIS WITH CONTRAST CLINICAL INFORMATION: Abnormal weight loss. COMPARISON: None available. TECHNIQUE: Multidetector volumetric images were obtained from the superior aspect of the liver through the pubic symphysis following administration 85 mL of Omnipaque 350 intravenous contrast. Sagittal and coronal reformatted images were obtained on the technologist's workstation. Oral contrast: No. This CT examination was performed using dose optimization techniques as appropriate, variously including the following: *Automated exposure control *Adjustment of mA and/or kV according to patient size (this includes techniques or standardized protocols for targeted exams where dose is matched to indication/reason for exam; i.e. extremities or head) *Use of iterative reconstruction technique DLP: 221 mGy-cm FINDINGS: LUNG BASES: The visualized lung bases are unremarkable. LIVER, GALLBLADDER, AND BILIARY TREE: The liver is normal in size, shape, and attenuation. There is a tiny hypodensity in the left hepatic lobe measuring 3 mm, image 19/3, most likely a small cyst. No intrahepatic biliary ductal dilatation is present. The gallbladder is unremarkable with no evidence of radiopaque gallstones, gallbladder wall thickening, or obvious pericholecystic inflammatory changes. PANCREAS: Unremarkable. SPLEEN: Unremarkable. ADRENAL GLANDS: Unremarkable. KIDNEYS AND URETERS: The kidneys are normal in size, shape, and attenuation. No hydronephrosis, hydroureter, or calculi seen. No perinephric stranding. There is a 7 mm hypodense lesion mid to lower pole left kidney, probable cyst. BLADDER: Unremarkable. GASTROINTESTINAL TRACT: The small and large bowel are unremarkable. The appendix is unremarkable. ABDOMINAL WALL: No significant hernia is appreciated. LYMPH NODES: Normal. VASCULAR: Unremarkable. PELVIC VISCERA: There is no free air or free fluid. No abnormal pelvic lymph nodes. The prostate gland is minimally prominent. OSSEOUS STRUCTURES: Mild degenerative disc changes L5-S1 disc level with moderate ventral spondylosis L4-L5, L5-S1, L1-L2, and L2-L3 disc levels. CT/CT abdomen pelvis w IV con IMPRESSION: 1. No acute intra-abdominal process seen. 2. Small cyst midpole left kidney. No radiopaque urolith or hydronephrosis. 3. Tiny hypodensity in the left hepatic lobe, probable cyst. 4. Mild degenerative disc changes L5-S1 disc level with moderate ventral spondylosis L4-L5, L5-S1, L1-L2, and L2-L3 disc levels. Fleischner guidelines were followed.
[2023-02-08] MEDS: iohexoL 350 MG/ML 100 ML INFUS..BTL IV (12:36)
[2023-02-11 10:14] LABS: Creatinine POC 0.7 mg/dL (0.5-1.4); GFR POC > 60
== END 2023-02-08 08:58 | disposition home or self-care (01) ==
LOC: HO.CT 08:57
PROVIDERS: PCP Internal Medicine; Visit Provider Internal Medicine
DX: R63.4 Abnormal weight loss (principal); R61 Generalized hyperhidrosis
CPT/HCPCS: 74177; 82565; Q9967

== ENCOUNTER 2023-02-11 13:34 | Outpatient (AMB) | payer OTHER, SELFPAY ==
[2023-02-11 13:54] VITALS: BP 122/72; PULSE 67; BMI 24.5
--- NOTE | 2023-02-11 13:54 | MHC.OFFVIS ---
Intake Vital Signs 02/11/23 13:54 Height 5 ft 10 in Weight 171 lb BMI 24.5 BP 122/72 Blood Pressure Location Rt brachial Position Sitting Pulse 67 Intake Visit Reasons: Nodule on left side torso Intake Note: This patient presents for an assessment for nodule on the left torso. Patient c/o; The ball I have where he did the surgery . Printing Worker Supervisor Required: Yes Printing Worker Supervisor Language: Process Improvement Analyst Name: Patient declined full time staff interpreter Accompanied by: Self / Same As Patient Allergies No Known Allergies [No Known Allergies*] Allergy (Verified 02/11/23 14:02) Medication List - Last Reconciled 02/11/23 by Beto Sims MD albuterol sulfate 2.5 mg (3 mL) inhalation Q4H PRN 30 days albuterol sulfate 90 mcg/actuation 2 puffs PO Q4-6H PRN 30 days amitriptyline 1 tab PO BEDTIME amlodipine 1 tab PO QAM aspirin 1 tab PO QAM atorvastatin 1 tab PO BEDTIME cyclobenzaprine 10 mg PO TID PRN dicyclomine 20 mg PO QID 30 days duloxetine 1 cap PO QAM finasteride 1 tab PO DAILY ztzgzybabah-dcyhiewfj-tqgzgkut 200-62.5-25 mcg (Trelegy Ellipta) 1 inh inhalation DAILY 30 days gabapentin 1 tab PO TID ipratropium-albuterol 0.5 mg-3 mg(2.5 mg base)/3 mL 3 mL inhalation Q4H PRN lidocaine 5% (Lidoderm) 1 patch topical DAILY metformin ER 0 mg PO metoprolol tartrate 1 tab PO montelukast (Singulair) 10 mg PO BEDTIME 30 days nebulizers As directed omeprazole 40 mg PO BID prednisone PO daily; Take 2 tabs daily x 5 days, then 1 tablet daily x 5 days 10 days sildenafil (Viagra) 1 tab PO DAILY PRN tamsulosin 1 cap PO BEDTIME terazosin 5 mg PO BEDTIME 90 days HPI Nodule on left side torso HPI Details 62-year-old male referred for a lump on his left flank area. He says this has had this for over a year and feels that this has been increasing in size. He says that this has been uncomfortable and he wants this removed. He denies any drainage or any skin changes. [facility] Medical History (Updated 02/11/23 @ 14:18 by Beto Sims MD) Anxiety Arthritis Asthma Asthma-COPD overlap syndrome Atelectasis Back pain Bipolar 1 disorder Depression Diabetes Elevated cholesterol Epidermal inclusion cyst Flank lipoma GERD (gastroesophageal reflux disease) Hypertension IBS (irritable bowel syndrome) Tension pneumothorax, spontaneous Umbilical hernia Surgical History History of excision of mass (12/13/22) History of lung surgery Hx of colonoscopy Hx of hernia repair Hx of tracheostomy Family History Mother Stomach cancer Brother Prostate cancer Brother Prostate cancer Social History Household Members: None Housing: Apartment Do you presently have visiting nurse or other home services: No Alcohol intake: current Alcohol intake frequency: holidays/special occasions only Patient Tobacco Use Status: Never used Tobacco e-Cigarette/Vaping Use: Never Used Second Hand Smoke Exposure: No Substance Use Type: Former Substance User and Marijuana Advance Directives Date on File: 03/28/21 service: No Current occupational status: unemployed Review of Systems Const Denies chills and Denies fever(s) Card Denies chest pain, Denies dyspnea and Denies dyspnea on exertion Resp Denies cough, Denies dyspnea and Denies dyspnea on exertion GI Denies hematochezia and Denies change in bowel habits Denies hematuria and Denies difficulty urinating Musc Denies back pain and Denies limited range of motion Neuro Denies focal weakness and Denies convulsions Psych Denies depression and Denies mood swings Physical Exam Vital Signs: Last Vital Signs Pulse 67 02/11/23 13:54 BP 122/72 02/11/23 13:54 BMI result Body Mass Index 24.5 Const General: comfortable and no acute distress Orientation/consciousness: patient oriented x3 Neck Neck: Yes no lymphadenopathy Resp Auscultation: clear to auscultation bilaterally Cardio Rhythm: regular rhythm GI Other: Left flank area - lipomatous mass, about 2.8 cm in diameter, mobile, well-defined Palpation (GI): Soft to palpation, nontender and no guarding Neuro General: patient oriented x3 Assessment & Plan Assessment & Plan (1) Flank lipoma: Code(s): D17.1 - Benign lipomatous neoplasm of skin and subcutaneous tissue of trunk Plan: He wants this excised. I explained the technique of excision under local anesthesia. I reviewed the risks including but not limited to bleeding and infections, as well as the benefits and alternatives. He understands and wants to proceed. This will be done on his next visit in the office. I reviewed with him what to expect postoperatively. Coding Level of Care Code Est Pt Level 3 (19202) Diagnoses Flank lipoma D17.1
== END 2023-02-11 14:15 | disposition home or self-care (01) ==
PROVIDERS: PCP Internal Medicine; Visit Provider Surgery
DX: D17.1 Benign lipomatous neoplasm of skin and subcutaneous tissue of trunk (principal)
CPT/HCPCS: 99213

== ENCOUNTER → 2023-02-11 13:34 | Outpatient (BNVA) | payer OTHER, SELFPAY | PROVIDERS: PCP Internal Medicine; Visit Provider Surgery | DX: D17.1 Benign lipomatous neoplasm of skin and subcutaneous tissue of trunk (principal) | CPT/HCPCS: 99212 ==

== ENCOUNTER 2023-02-20 12:59 | Outpatient (REF) | payer OTHER, SELFPAY | END 2023-02-20 13:00 | disposition home or self-care (01) | LOC: HO.LNP 12:59 | PROVIDERS: PCP Internal Medicine; Visit Provider Surgery | DX: D17.1 Benign lipomatous neoplasm of skin and subcutaneous tissue of trunk (principal) | CPT/HCPCS: 11404; 88304 ==

== ENCOUNTER 2023-02-20 12:59 | Outpatient (AMB) | payer OTHER, SELFPAY ==
--- NOTE | 2023-02-20 13:00 | MHC.OFFVIS ---
Intake Vital Signs 02/20/23 13:01 Height 5 ft 10 in Weight 171 lb BMI 24.5 BP 118/70 Blood Pressure Location Rt brachial Position Sitting Pulse 68 Intake Visit Reasons: Excision of lipoma left flank Intake Note: This patient presents for in-office procedure for an excision of lipoma on the left flank. Patient c/o; reports no changes or complaints at this time. Reports no known allergy to lidocaine. Certified Massage Therapist Required: Yes Certified Massage Therapist Language: Release Coordinator Name: Bob Information Interpreted: non-clinical & clinical Accompanied by: Self / Same As Patient Allergies No Known Allergies [No Known Allergies*] Allergy (Verified 02/20/23 13:01) HPI Excision of lipoma left flank HPI Details He is here for excision of a lipoma from the left flank. [facility] Medical History Anxiety Arthritis Asthma Asthma-COPD overlap syndrome Atelectasis Back pain Bipolar 1 disorder Depression Diabetes Elevated cholesterol Epidermal inclusion cyst Flank lipoma GERD (gastroesophageal reflux disease) Hypertension IBS (irritable bowel syndrome) Tension pneumothorax, spontaneous Umbilical hernia Surgical History (Updated 02/20/23 @ 13:09 by YESSENIA Lara) History of excision of mass (12/13/22) History of lung surgery Hx of colonoscopy Hx of hernia repair Hx of tracheostomy S/P excision of lipoma (~02/20/23) Family History Mother Stomach cancer Brother Prostate cancer Brother Prostate cancer Social History Household Members: None Housing: Apartment Do you presently have visiting nurse or other home services: No Alcohol intake: current Alcohol intake frequency: holidays/special occasions only Patient Tobacco Use Status: Never used Tobacco e-Cigarette/Vaping Use: Never Used Second Hand Smoke Exposure: No Substance Use Type: Former Substance User and Marijuana Advance Directives Date on File: 03/28/21 service: No Current occupational status: unemployed Physical Exam Vital Signs: Last Vital Signs Pulse 68 02/20/23 13:01 BP 118/70 02/20/23 13:01 BMI result Body Mass Index 24.5 Office Procedures Excision Details: He was placed in right lateral decubitus position to expose the lipoma on the left flank. The area was prepped and draped. Lidocaine 1% was used for local anesthesia. I made an incision on the skin overlying the lipoma using blade 15. And this carried down through the full-thickness of the skin subcutaneous fat until the lipomas visualized. I sharply dissected the lipoma off the rest of the subcutaneous layer as well as the underlying fascia until this was delivered. This lipoma measured about 3.2 x 2 cm. I closed the incision with full-thickness nylon 3-0 interrupted sutures. Dressings were applied and the procedure was completed. He tolerated procedure well. There were no immediate complications. He was given wound care instructions. He will be seen in the office for follow-up for of wound checked as well as for removal sutures. 82564-ldudp/arms/legs 3.1-4cm Procedure code (CPT) selection complete Assessment & Plan Assessment & Plan (1) Flank lipoma: Code(s): D17.1 - Benign lipomatous neoplasm of skin and subcutaneous tissue of trunk Plan: Excision was done in the office under local anesthesia. There were no immediate complications. There was minimal blood loss. He was given wound care instructions and will be seen in the office for follow-up. Coding Level of Care Code Procedure Only Diagnoses Flank lipoma D17.1 CPT Codes Trunk/Arms/Legs - CPT: 43972-hvgbv/arms/legs 3.1-4cm ([id number])
[2023-02-20 13:01] VITALS: BP 118/70; PULSE 68; BMI 24.5
== END 2023-02-20 13:43 | disposition home or self-care (01) ==
PROVIDERS: PCP Internal Medicine; Visit Provider Surgery
DX: D17.1 Benign lipomatous neoplasm of skin and subcutaneous tissue of trunk (principal)
CPT/HCPCS: 11404

== ENCOUNTER 2023-03-04 12:59 | Outpatient (AMB) | payer OTHER, SELFPAY ==
--- NOTE | 2023-03-04 13:27 | MHC.OFFVIS ---
Intake Vital Signs 03/04/23 13:35 Height 5 ft 10 in Weight 171 lb 2 oz BMI 24.6 BP 120/69 Blood Pressure Location Lt brachial Position Sitting Pulse 67 Intake Visit Reasons: s/p excision of lipoma left flank Intake Note: Patient is seen in office for post op assessment post excision of lipoma of the left flank. 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 He tolerated the procedure well and currently denies complaints. REPLACED BY [facility] Medical History Anxiety Arthritis Asthma Asthma-COPD overlap syndrome Atelectasis Back pain Bipolar 1 disorder Depression Diabetes Elevated cholesterol Epidermal inclusion cyst Flank lipoma GERD (gastroesophageal reflux disease) Hypertension IBS (irritable bowel syndrome) Tension pneumothorax, spontaneous Umbilical hernia Surgical History History of excision of mass (12/13/22) History of lung surgery Hx of colonoscopy Hx of hernia repair Hx of tracheostomy S/P excision of lipoma (02/20/23) Family History Mother Stomach cancer Brother Prostate cancer Brother Prostate cancer Social History Household Members: None Housing: Apartment Do you presently have visiting nurse or other home services: No Alcohol intake: current Alcohol intake frequency: holidays/special occasions only Patient Tobacco Use Status: Never used Tobacco e-Cigarette/Vaping Use: Never Used Second Hand Smoke Exposure: No Substance Use Type: Former Substance User and Marijuana Advance Directives Date on File: 03/28/21 service: No Current occupational status: unemployed Review of Systems Const Denies chills and Denies fever(s) Card Denies chest pain, Denies dyspnea and Denies dyspnea on exertion Resp Denies cough, Denies dyspnea and Denies dyspnea on exertion GI Denies hematochezia and Denies change in bowel habits Denies hematuria and Denies difficulty urinating Musc Denies back pain and Denies limited range of motion Neuro Denies focal weakness and Denies convulsions Psych Denies depression and Denies mood swings Physical Exam Vital Signs: Last Vital Signs Pulse 67 03/04/23 13:35 BP 120/69 03/04/23 13:35 BMI result Body Mass Index 24.6 Const General: comfortable and no acute distress GI Other: Left flank incision is well healed, not infected Assessment & Plan Assessment & Plan (1) Flank lipoma: Code(s): D17.1 - Benign lipomatous neoplasm of skin and subcutaneous tissue of trunk Plan: Status post excision. His incision is well healed. His sutures were removed. His path report shows a lipoma. He understands the benign nature of this pathology. He can follow up on a p.r.n. basis. Coding Level of Care Code Global (81669) Diagnoses Flank lipoma D17.1
[2023-03-04 13:35] VITALS: BP 120/69; PULSE 67; BMI 24.6
== END 2023-03-04 13:48 | disposition home or self-care (01) ==
PROVIDERS: PCP Internal Medicine; Visit Provider Surgery
DX: D17.1 Benign lipomatous neoplasm of skin and subcutaneous tissue of trunk (principal)
CPT/HCPCS: 99024

== ENCOUNTER → 2023-03-04 12:59 | Outpatient (BNVA) | payer OTHER, SELFPAY | PROVIDERS: PCP Internal Medicine; Visit Provider Surgery ==

== ENCOUNTER 2023-03-15 13:00 | Outpatient (RCR) | payer OTHER, SELFPAY | END 2023-04-17 09:54 | disposition home or self-care (01) | LOC: HO.PT 13:00 | PROVIDERS: PCP Internal Medicine; Visit Provider Physician Assistant | DX: Z98.890 Other specified postprocedural states (principal) | CPT/HCPCS: 97110; 97140; 97161 ==

== ENCOUNTER 2023-06-23 20:09 | Emergency (ER) | payer OTHER, SELFPAY ==
--- NOTE | 2023-06-23 | ECG_ITS ---
Test Reason : CHEST PAIN Blood Pressure : / mmHG Vent. Rate : 074 BPM Atrial Rate : 074 BPM P-R Int : 152 ms QRS Dur : 100 ms QT Int : 390 ms P-R-T Axes : 050 -01 015 degrees QTc Int : 432 ms Normal sinus rhythm Normal ECG When compared with ECG of 31-AUG-2021 19:47, No significant change was found Referred By: Generic ED Physician Electronically Signed By:Vazquez Monahan
--- NOTE | ~2023-06-23 | XR_ITS ---
EXAMINATION: XR CHEST CLINICAL INFORMATION: Chest pain. COMPARISON: 06/28/2022. TECHNIQUE: 2 views of the chest were obtained. FINDINGS: The cardiomediastinal silhouette is stable. Bilateral lung base and right midlung field scarring are again seen. The lungs are otherwise clear. There are no significant pleural effusions. The bony structures and soft tissues are unremarkable. XR/XR chest 2V IMPRESSION: No active cardiopulmonary disease. No significant interval change.
[2023-06-23 20:49] VITALS: BP 143/78; PULSE 79; RESP 20; TEMP 36.6; O2SAT 97; BMI 23.7
[2023-06-23 21:36] LABS: Basophils Percent Auto 0.4 % (0-2); Eosinophils Absolute Auto 0.2 X10*3/uL (0.0-0.4); Hematocrit 41.7 % (42.0-52.0); Hemoglobin 13.9 g/dl (14.0-18.0); Imm Gran Abs Auto 0.02 X10*3/uL (0.00-0.03); Imm Gran Pct Auto 0.3 % (0.0-0.4); Lymphocytes Absolute Auto 1.7 X10*3/uL (1.2-4.9); Lymphocytes Percent Auto 22.5 % (20-40); MANUAL DIFF FLAG SCAN; Mean Corpuscular HGB Conc 33.3 g/dl (31.0-36.0); Mean Corpuscular Hemoglobin 29.1 pg (27.0-33.0); Mean Corpuscular Volume 87.2 fL (80.0-98.0); Mean Platelet Volume 10.3 fL (9.4-12.4); Monocytes Percent Auto 13.6 % (2-11); Neutrophils Absolute Auto 4.6 x10*3/uL (2.0-8.3); Neutrophils Percent Auto 61.2 % (45-73); PLT CLUMP 1; Red Blood Count 4.78 X10*6/uL (4.60-5.80); Red Cell Distribution Width 13.1 % (11.0-16.0); SCAN SMEAR FLAG 1
[2023-06-23 21:55] LABS: White Blood Count 7.6 X10*3/uL (4.8-10.8)
[2023-06-23 21:56] LABS: SLIDE REVIEW VERIFIED
[2023-06-23 22:24] LABS: Alanine Aminotransferase 18 U/L (0-40); Albumin Level 4.2 g/dL (3.5-5.0); Alkaline Phosphatase 79 U/L (39-117); Anion Gap 19 (12-20); Aspartate Amino Transferase 19 U/L (5-37); Bilirubin Total 0.4 mg/dL (0.0-1.0); Blood Urea Nitrogen 17 mg/dL (9-16); Calcium 9.5 mg/dL (8.4-10.2); Carbon Dioxide 20 mmol/L (22-29); Chloride 106 mmol/L (96-108); Creatinine Clr Calc Pharmacy 91.6; Estimated Glomerular Filt Rate > 60; Glucose Random 145 mg/dL (60-115); Potassium 3.9 mmol/L (3.3-5.1); Sodium 141 mmol/L (135-145); Total Protein 7.5 g/dL (6.5-8.0)
[2023-06-23 22:25] LABS: Troponin-I High Sensitivity < 2.7 ng/L (<3.5-35.0)
--- NOTE | 2023-06-23 22:51 | ED.CHESTPAIN ---
HPI - Chest Pain General Chief Complaint: Chest Pain Stated Complaint: chest pain Time Seen by Provider: 06/23/23 22:34 Source: patient, family and enterprise resource planning consultant Mode of arrival: ambulatory History of Present Illness HPI narrative: 63-year-old male who presents with complaints of midsternal chest pain as well as left lower rib pain this started last night in occurred when he was rolling from side to side while on his phone. The pain is reproducible on palpation and has not been associated with any fever, chills, new cough for sore throat and patient denies any nausea or vomiting, denies any diarrhea or urinary symptoms. Patient reports drinking 4 beers last night. He endorses that he did have breakfast but otherwise his appetite has decreased throughout the day. Related Data Home Medications Medication Instructions Recorded Confirmed amitriptyline 100 mg tablet 1 tab PO BEDTIME 07/25/20 02/11/23 aspirin 81 mg tablet,delayed 1 tab PO QAM 07/25/20 02/11/23 release atorvastatin 40 mg tablet 1 tab PO BEDTIME 07/25/20 02/11/23 sildenafil 100 mg tablet (Viagra) 1 tab PO DAILY PRN Erectile 07/25/20 02/11/23 Dysfunction duloxetine 60 mg capsule,delayed 1 cap PO QAM 03/28/21 02/11/23 release gabapentin 800 mg tablet 1 tab PO TID 03/28/21 02/11/23 finasteride 5 mg tablet 1 tab PO DAILY 07/08/21 02/11/23 tamsulosin 0.4 mg capsule 1 cap PO BEDTIME 07/08/21 02/11/23 amlodipine 10 mg tablet 1 tab PO QAM 09/08/21 02/11/23 metoprolol tartrate 50 mg tablet 1 tab PO 09/08/21 02/11/23 metformin 500 mg tablet,extended 0 mg PO 10/26/22 02/11/23 release 24 hr nebulizers 10/26/22 02/11/23 Previous Rx's Medication Instructions Recorded terazosin 5 mg capsule 5 mg PO BEDTIME 90 days #90 caps 04/03/21 dicyclomine 20 mg tablet 20 mg PO QID 30 days #120 tabs 10/06/21 omeprazole 40 mg capsule,delayed 40 mg PO BID #60 caps 10/06/21 release ipratropium 0.5 mg-albuterol 3 mg 3 ml inhalation Q4H PRN shortness 06/28/22 (2.5 mg base)/3 mL nebulization of breath or wheezing #90 mL soln cyclobenzaprine 10 mg tablet 10 mg PO TID PRN muscle spasm #15 08/25/22 tabs lidocaine 5 % topical patch 1 patch topical DAILY #15 ea 08/25/22 (Lidoderm) albuterol sulfate 2.5 mg/3 mL 2.5 mg (3 mL) inhalation Q4H PRN 10/26/22 (0.083 %) solution for nebulization shortness of breath or wheezing 30 days #360 mL albuterol sulfate 90 mcg/actuation 2 puff PO Q4-6H PRN Shortness Of 10/26/22 aerosol inhaler Breath Or Wheezing 30 days #8.5 grams fluticasone fur. 200 mcg-umeclid 1 inh inhalation DAILY 30 days #60 10/26/22 62.5 mcg-vilant 25 mcg ea inhalat.powder (Trelegy Ellipta) prednisone 20 mg tablet See Rx Instructions PO DAILY 10 10/26/22 days #15 tabs montelukast 10 mg tablet 10 mg PO BEDTIME #30 tabs 06/20/23 Allergies Allergy/AdvReac Type Severity Reaction Status Date / Time No Known Allergies Allergy Verified 06/23/23 20:52 [No Known Allergies*] Review of Systems Review of Systems: Pertinent positives and negatives as stated in HPI [facility] Past Medical History Source: nursing notes reviewed Medical History Flank lipoma Epidermal inclusion cyst Atelectasis Asthma-COPD overlap syndrome IBS (irritable bowel syndrome) Umbilical hernia Diabetes Arthritis Back pain GERD (gastroesophageal reflux disease) Bipolar 1 disorder Anxiety Depression Elevated cholesterol Tension pneumothorax, spontaneous Hypertension Asthma Surgical History S/P excision of lipoma (02/20/23) History of excision of mass (12/13/22) Hx of colonoscopy Hx of tracheostomy History of lung surgery Hx of hernia repair Family History Family History Mother Stomach cancer Brother Prostate cancer Brother Prostate cancer Social History Social History Household Members: None Housing: Apartment Do you presently have visiting nurse or other home services: No Alcohol intake: current Alcohol intake frequency: a few times a week Patient Tobacco Use Status: Never used Tobacco Smoked in Last 30 Days: No e-Cigarette/Vaping Use: Never Used Second Hand Smoke Exposure: No Use of substances other than those prescribed or required for medical reasons: No Substance Use Type: Former Substance User and Marijuana Advance Directives: Yes Advance Directives on File: Yes Advance Directives Date on File: 03/28/21 service: No Current occupational status: unemployed Physical Exam Vital Signs: Vital Signs: Last Vital Signs Temp 97.8 F 06/23/23 20:49 Pulse 69 06/23/23 23:01 Resp 16 06/23/23 23:01 BP 139/95 H 06/23/23 23:01 Pulse Ox 96 06/23/23 23:01 O2 Del Method Room Air 06/23/23 23:01 BMI result Body Mass Index 23.7 VITAL SIGNS: Reviewed. GENERAL: Well developed, well nourished, in no acute distress. HEAD: Normocephalic/atraumatic EYES: PERRLA, EOMI EARS: Ext canals without abnormality NOSE: Nares patent bilateral OROPHARYNX: no oral lesions noted, posterior pharynx clear NECK: Supple, no adenopathy LUNGS: Normal breath sounds. No adventitious sounds or accessory muscle use. SpO2<97>; CHEST WALL: Reproducible tenderness to palpation along sternum, no tenderness to palpation at mid clavicular left chest wall, then again tenderness to palpation at anterior axillary line on left chest wall, there is no crepitus or deformities noted CARDIOVASCULAR: Regular rate and rhythm without noted murmurs ABDOMEN: Soft, non-tender, non-distended with bowel sounds. MUSCULOSKELETAL: No tenderness, deformities, or effusions noted on gross inspection. EXTREMITIES: No cyanosis, clubbing or edema. SKIN: Inspection of the skin reveals no rashes NEUROLOGIC: Alert and oriented x 4. Strength and sensation to light touch were grossly intact x 4. Medical Decision Making Medical Decision Making MDM Narrative: 63-year-old male with history and clinical presentation, DDX: Pancreatitis, gastritis, musculoskeletal/costochondritis, doubt infectious etiology, no evidence to suggest asthma exacerbation, low clinical suspicion for ACS. Patient does have high risk features with a history of diabetes, hypertension. I reviewed all investigations and hematologic indices demonstrates a stable normocytic anemia without leukocytosis or left shift. Chemistry indices are grossly within normal limits and there is no demonstrated REJI her electrolytes/liver enzyme derangements. Magnesium levels within normal limits and high sensitivity troponin is undetectable without any noted acute changes on EKG. Lipase is within normal limits. Patient was offered a GI cocktail followed by Carafate and also received combination analgesics. Viral testing is negative for COVID-19/influenza. Chest x-ray has not officially been read but my prelim evaluation is at there are no acute changes when compared to chest x-ray from a 06/28, specifically I do not appreciate any evidence of infiltrate/venous congestion/pneumothorax. My interpretation is that patient is experiencing a combination of gastritis with acid reflux as well as some suspected musculoskeletal pain. He is otherwise discharged home in stable condition. Differential Diagnosis Differential Diagnoses: The differential diagnosis associated with the presentation includes Please see the discussion above Admission/Observation Consideration of admission/observation: Escalation of care including admission/observation considered Please see the discussion above Lab Data MDM Lab Attestation statement: I reviewed the patient's lab results. Please see the discussion above 06/23/23 21:29 06/23/23 21:29 Labs: Lab Results 06/23/23 06/23/23 Range/Units 21:29 23:06 WBC 7.6 (4.8-10.8) X10*3/uL RBC 4.78 (4.60-5.80) X10*6/uL Hgb 13.9 L (14.0-18.0) g/dl Hct 41.7 L (42.0-52.0) % MCV 87.2 (80.0-98.0) fL MCH 29.1 (27.0-33.0) pg MCHC 33.3 (31.0-36.0) g/dl RDW 13.1 (11.0-16.0) % Plt Count TNP MPV 10.3 (9.4-12.4) fL Immature Gran % (Auto) 0.3 (0.0-0.4) % Neut % (Auto) 61.2 (45-73) % Lymph % (Auto) 22.5 (20-40) % [place] % (Auto) 13.6 H (2-11) % Eos % (Auto) 2.0 (0-4) % Baso % (Auto) 0.4 (0-2) % Lymph # (Auto) 1.7 (1.2-4.9) X10*3/uL [place] # (Auto) 1.0 (0.1-1.2) X10*3/uL Eos # (Auto) 0.2 (0.0-0.4) X10*3/uL Baso # (Auto) 0.0 (0.0-0.2) X10*3/uL Abs Immat Gran (auto) 0.02 (0.00-0.03) X10*3/uL Absolute Neuts (auto) 4.6 (2.0-8.3) x10*3/uL Absolute Nucleated RBC 0.000 (0.0-0.012) X10*3/uL Nucleated RBC % (auto) 0.0 (0.0-0.2) /100WBC Smear Tech's Comments VERIFIED Sodium 141 (135-145) mmol/L Potassium 3.9 (3.3-5.1) mmol/L Chloride 106 (96-108) mmol/L Carbon Dioxide 20 L (22-29) mmol/L Anion Gap 19 (12-20) BUN 17 H (9-16) mg/dL Creatinine 0.83 (0.5-1.4) mg/dL Estim Creat Clear Calc 91.6 Estimated GFR > 60 Random Glucose 145 H (60-115) mg/dL Calcium 9.5 (8.4-10.2) mg/dL Magnesium 1.7 (1.6-2.6) mg/dL Total Bilirubin 0.4 (0.0-1.0) mg/dL AST 19 (5-37) U/L ALT 18 (0-40) U/L Alkaline Phosphatase 79 (39-117) U/L Troponin I High Sens < 2.7 (<3.5-35.0) ng/L Total Protein 7.5 (6.5-8.0) g/dL Albumin 4.2 (3.5-5.0) g/dL Lipase 14 (8-78) U/L COVID-19 (JOSHUA) Negative (Negative) COVID-19 Clin Com See Note Influenza Type A (EDER) Negative (Negative) Influenza Type B (EDER) Negative (Negative) Influenza A & B Note See Note Independent Interpretation I performed an independent interpretation of an: EKG Interpretation: Normal sinus rhythm, HR-70 or, no STEMI, ND/QRS/QTC is within normal limits. Radiology Impression Discussion of test interpretation with radiology: I have reviewed the radiologist's reading. Radiologist Impression: Please see the discussion above External Record Review External record reviewed: Outpatient record, Prior outpatient labs and Prior outpatient radiology Chronic Conditions Patient?s care impacted by: Diabetes and Hypertension Critical Care Time Critical Care Time Critical Care Time: Yes Total Critical Care Time: 30 Attestation: I personally attest to this time spent taking care of the patient. Discharge Plan Discharge Clinical Impression: Atypical chest pain, Gastritis, Anterior chest wall pain Patient Disposition: Home, Self-Care Instructions: Gastritis (ED), Diet for Stomach Ulcers and Gastritis (ED), Noncardiac Chest Pain (ED), Chest Wall Pain (ED) Additional Instructions: 1. Reanudar todos los medicamentos caseros seg?n lo recetado. 2. Tylenol 1000 mg, por v?a oral, cada 6 horas seg?n sea necesario para controlar el dolor. No exceda los 4000 mg en 24 horas. 3. Parche de lidoca?na, apl?quelo en el ?shade de m?xima sensibilidad xiao se indica en el paquete exterior. 4. Recomiende Mylanta de venta jairo, t?samlls seg?n las indicaciones antes de cada comida, ya que esto ayudar? con la gastritis. 5. Krissy un seguimiento con [place] m?dico de atenci?n primaria en los pr?ximos 1 o 2 d?as. Regrese a la jose de emergencias si los s?ntomas empeoran. 1. Resume all home medications as prescribed. 2. Tylenol 1000 mg, orally, every 6 hours as needed for pain control. Do not exceed 4000 mg within 24 hours. 3. Lidocaine patch, apply to area of maximal tenderness as directed on the outside packaging. 4. Recommend [id number] Mylanta, take as directed prior to each meal as this will help with the gastritis. 5. Please follow-up with your primary care doctor in the next 1-2 days. Return to the ER for any worsening symptoms. Prescriptions: No Action terazosin 5 mg capsule 5 mg PO BEDTIME 90 Days Qty: 90 3RF montelukast 10 mg tablet 10 mg PO BEDTIME Qty: 30 4RF atorvastatin 40 mg tablet 1 tab PO BEDTIME aspirin 81 mg tablet,delayed release (DR/EC) 1 tab PO QAM sildenafil [Viagra] 100 mg tablet 1 tab PO DAILY PRN (Reason: Erectile Dysfunction) amitriptyline 100 mg tablet 1 tab PO BEDTIME duloxetine 60 mg capsule,delayed release(DR/EC) 1 cap PO QAM gabapentin 800 mg tablet 1 tab PO TID tamsulosin 0.4 mg capsule 1 cap PO BEDTIME finasteride 5 mg tablet 1 tab PO DAILY amlodipine 10 mg tablet 1 tab PO QAM metoprolol tartrate 50 mg tablet 1 tab PO ipratropium-albuterol 0.5 mg-3 mg(2.5 mg base)/3 mL solution for nebulization 3 ml inhalation Q4H PRN (Reason: shortness of breath or wheezing) Qty: 90 0RF Rx Instructions: until breathing returns to target peak flow/parameters cyclobenzaprine 10 mg tablet 10 mg PO TID PRN (Reason: muscle spasm) Qty: 15 0RF lidocaine [Lidoderm] 5 % adhesive patch,medicated 1 patch topical DAILY Qty: 15 0RF Rx Instructions: leave on most painful area for up to 12 hrs dicyclomine 20 mg tablet 20 mg PO QID 30 Days Qty: 120 6RF omeprazole 40 mg capsule,delayed release(DR/EC) 40 mg PO BID Qty: 60 6RF metformin 500 mg tablet extended release 24 hr 0 mg PO (DME) nebulizers [facility] See Rx Instructions .Route Rx Instructions: As directed prednisone 20 mg tablet See Rx Instructions PO DAILY 10 Days Qty: 15 0RF Rx Instructions: PO daily; Take 2 tabs daily x 5 days, then 1 tablet daily x 5 days albuterol sulfate 90 mcg/actuation HFA aerosol inhaler 2 puff PO Q4-6H PRN (Reason: Shortness Of Breath Or Wheezing) 30 Days Qty: 8.5 11RF albuterol sulfate 2.5 mg /3 mL (0.083 %) solution for nebulization 2.5 mg inhalation Q4H PRN (Reason: shortness of breath or wheezing) 30 Days Qty: 360 11RF Trelegy Ellipta 200-62.5-25 mcg blister with device 1 inh inhalation DAILY 30 Days Qty: 60 12RF Referrals: Chun Michel MD [Primary Care Provider] - Print Language: Icelandic
[2023-06-23 23:01] VITALS: BP 139/95; PULSE 69; RESP 16; O2SAT 96
[2023-06-23 23:21] LABS: Lipase 14 U/L (8-78); Magnesium 1.7 mg/dL (1.6-2.6)
[2023-06-23 23:57] LABS: COVID-19 Test Negative (Negative); IDNOW Serial# 08D9AD1C; IDNOW Serial# BCCEAD1C; Influenza A Negative (Negative); Influenza B2 Negative (Negative)
[2023-06-24] MEDS: Mag&Al/Sim/Diphenhyd/Lidocaine 10 ML ORAL.SUSP PO (00:23)
[2023-06-24] MEDS: Sucralfate Oral Suspension 1 GM/10 ML ORAL.SUSP PO (00:24)
[2023-06-24] MEDS: Acetaminophen 325 MG TABLET 975 MG PO (00:24)
[2023-06-24] MEDS: Ibuprofen 400 MG TABLET PO (00:24)
== END 2023-06-24 00:29 | disposition home or self-care (01) ==
PROVIDERS: Emergency Provider Student in an Organized Health Care Education/Training Program; PCP Internal Medicine
DX: R07.89 Other chest pain (principal); K29.70 Gastritis, unspecified, without bleeding; Z11.52 Encounter for screening for COVID-19; E11.9 Type 2 diabetes mellitus without complications; I10 Essential (primary) hypertension; E78.5 Hyperlipidemia, unspecified; Z79.82 Long term (current) use of aspirin; Z79.02 Long term (current) use of antithrombotics/antiplatelets; Z79.84 Long term (current) use of oral hypoglycemic drugs; Z79.899 Other long term (current) drug therapy
CPT/HCPCS: 36415; 71046; 80053; 83690; 83735; 84484; 85025; 87502; 87635; 93005; 99284; 99285

== ENCOUNTER → 2023-06-23 20:24 | Outpatient (BNV) | payer OTHER, SELFPAY | PROVIDERS: Emergency Provider Student in an Organized Health Care Education/Training Program; PCP Internal Medicine; Visit Provider Internal Medicine Cardiovascular Disease | DX: R07.9 Chest pain, unspecified (principal) | CPT/HCPCS: 93010 ==

== ENCOUNTER 2023-07-23 12:59 | Outpatient (AMB) | payer OTHER, SELFPAY ==
--- NOTE | 2023-07-23 13:36 | MHC.OFFVIS ---
Intake Intake Visit Reasons: 6m follow up Intake Note: Patient is Present for Follow Up Urology Medication: Sildenafil, Tamsulosin, Terazosin Antibiotic Allergies: None Blood Thinners: Aspirin PVR: 45 Allergies No Known Allergies [No Known Allergies*] Allergy (Verified 07/23/23 13:37) Medication List - Last Reconciled 07/23/23 by Shahriar Lee MD albuterol sulfate 2.5 mg (3 mL) inhalation Q4H PRN 30 days albuterol sulfate 90 mcg/actuation 2 puffs PO Q4-6H PRN 30 days amitriptyline 1 tab PO BEDTIME amlodipine 1 tab PO QAM aspirin 1 tab PO QAM atorvastatin 1 tab PO BEDTIME cyclobenzaprine 10 mg PO TID PRN dicyclomine 20 mg PO QID 30 days duloxetine 1 cap PO QAM finasteride 1 tab PO DAILY [id number]-knhzlrjo 200-62.5-25 mcg (Trelegy Ellipta) 1 inh inhalation DAILY 30 days gabapentin 1 tab PO TID ipratropium-albuterol 0.5 mg-3 mg(2.5 mg base)/3 mL 3 mL inhalation Q4H PRN lidocaine 5% (Lidoderm) 1 patch topical DAILY metformin ER 0 mg PO metoprolol tartrate 1 tab PO montelukast 10 mg PO BEDTIME nebulizers As directed omeprazole 40 mg PO BID prednisone PO daily; Take 2 tabs daily x 5 days, then 1 tablet daily x 5 days 10 days sildenafil (Viagra) 1 tab PO DAILY PRN terazosin 5 mg PO BEDTIME 90 days HPI HPI Comments History of Present Illness Details Francisco J is Prydeinig-speaking male. He is a patient of Dr. Brennan. He is seen for the following urologic conditions - lower urinary tract symptoms Prydeinig translation performed by qualified medical insurance coding specialist Follow-up from urgency with postvoid dribbling Continues with terazosin 5 mg Stand pelvic floor exercises and Prydeinig 6 month follow-up tele Lower urinary tract symptoms Further evaluation of symptoms - urgency with postvoid dribbling - initial improvement with terazosin Current treatment terazosin 5 mg Has post terminal dribbling Cystoscopy 06/04 open bladder neck PFSH Medical History Flank lipoma Epidermal inclusion cyst Atelectasis Asthma-COPD overlap syndrome IBS (irritable bowel syndrome) Umbilical hernia Diabetes Arthritis Back pain GERD (gastroesophageal reflux disease) Bipolar 1 disorder Anxiety Depression Elevated cholesterol Tension pneumothorax, spontaneous Hypertension Asthma Surgical History S/P excision of lipoma (02/20/23) History of excision of mass (12/13/22) Hx of colonoscopy Hx of tracheostomy History of lung surgery Hx of hernia repair Family History Mother Stomach cancer Brother Prostate cancer Brother Prostate cancer Social History Household Members: None Housing: Apartment Do you presently have visiting nurse or other home services: No Alcohol intake: current Alcohol intake frequency: a few times a week Patient Tobacco Use Status: Never used Tobacco e-Cigarette/Vaping Use: Never Used Second Hand Smoke Exposure: No Substance Use Type: Former Substance User and Marijuana Advance Directives Date on File: 03/28/21 service: No Current occupational status: unemployed Review of Systems Const Denies chills and Denies fever(s) Card Reports no additional complaints and Denies syncope Resp Denies cough GI Denies abdominal pain and Denies heartburn Reports as per HPI and Denies change in libido Neuro Denies syncope Psych Denies change in libido Endo Denies change in libido Physical Exam Const General: cooperative, healthy appearing, comfortable and no acute distress Orientation/consciousness: patient oriented x3 HEENT Face and sinus: Yes normal facial exam Mouth: moist mucous membranes Neck Neck: Yes normal visual inspection, Yes full ROM and Yes trachea midline Chest Chest palpation & inspection: normal inspection of the chest Resp Effort & Inspection: normal respiratory effort, able to speak in complete sentences and no respiratory distress GI Inspection: Yes normal to inspection Back/Spine/Pelvis Cervical Spine: normal cervical lordosis Thoracic/Lumbar Spine: thoracic and lumbar spine normal to inspection Skin General skin exam: no rashes or lesions noted Neuro General: patient oriented x3, gait normal, tone normal and moves all extremities Extrem General: Yes normal to inspection and Yes capillary refill normal Office Procedures Post Void Residual Post Residual Void Post Void Residual (PVR): 45 [id number] Void Residual by ultrasound Assessment & Plan Assessment & Plan (1) BPH loc w urin obs/LUTS: Code(s): N40.1 - Benign prostatic hyperplasia with lower urinary tract symptoms (2) Nocturia more than twice per night: Code(s): R35.1 - Nocturia Plan Six month follow-up Orders: Orders AMB Post Void Residual by ultrasound Today N40.1 - Benign prostatic hyperplasia with lower urinary tract symptoms, R39.12 - Poor urinary stream Medications: Refilled terazosin 5 mg PO BEDTIME 90 days 90 caps 3RF N13.8 - Other obstructive and reflux uropathy, N40.1 - Benign prostatic hyperplasia with lower urinary tract symptoms Patient Instructions: Imaging studies, laboratory and physical exam results were discussed and reviewed in detail. No major barriers to patient understanding were identified. An opportunity to ask questions regarding the treatment plan was provided. All questions were answered. The patient expressed understanding and agreement with the above treatment plan. The patient is aware they should contact our office by phone for worsening of their current condition or the appearance of new urologic symptoms. Compliance is encouraged with any medications and followup testing that is ordered. It is a privilege to participate in the urologic care of your patient. If you have any questions or concerns regarding treatment for the above conditions, or other urologic issues, please do not hesitate to contact me. The office telephone contact is [phone]. This note is constructed using voice recognition software. While every effort has been made to ensure accuracy sailing instructor errors may have been included. Yours sincerely, Dr Shahriar Lee MD, [facility] - Urology Providers of Expert, Compassionate Care for the Genitourinary System Coding Level of Care Code Est Pt Level 3 (98956) Diagnoses BPH loc w urin obs/LUTS N40.1 Nocturia more than twice per night R35.1 CPT Codes Post Residual Void - PVR CPT Code: 05162-Iori Void Residual by ultrasound ([id number])
== END 2023-07-23 13:52 | disposition home or self-care (01) ==
PROVIDERS: PCP Internal Medicine; Visit Provider Urology
DX: N40.1 Benign prostatic hyperplasia with lower urinary tract symptoms (principal); R35.1 Nocturia
CPT/HCPCS: 99213

== ENCOUNTER → 2023-07-23 12:59 | Outpatient (BNVA) | payer OTHER, SELFPAY | PROVIDERS: PCP Internal Medicine; Visit Provider Urology | DX: N40.1 Benign prostatic hyperplasia with lower urinary tract symptoms (principal); R35.1 Nocturia | CPT/HCPCS: 51798; 99212 ==

== ENCOUNTER 2023-07-29 14:25 | Outpatient (AMB) | payer OTHER, SELFPAY ==
[2023-07-29 15:01] VITALS: BP 110/56; PULSE 57; BMI 25.3
--- NOTE | 2023-07-29 15:01 | MHC.OFFVIS ---
Intake Vital Signs 07/29/23 15:01 Height 5 ft 10 in Weight 176 lb 5.917 oz BMI 25.3 BP 110/56 L Blood Pressure Location Lt brachial Position Sitting Pulse 57 Intake Visit Reasons: NPV/Intermittent chest pain/HHC/Neelam Michel Intake Note: NPV/Intermitten chest pain/ pt its still having chest pain. 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 Accompanied by: Spouse Allergies No Known Allergies [No Known Allergies*] Allergy (Verified 07/23/23 13:37) Medication List - Last Reconciled 07/29/23 by Vazquez Monahan MD albuterol sulfate 2.5 mg (3 mL) inhalation Q4H PRN 30 days albuterol sulfate 90 mcg/actuation 2 puffs PO Q4-6H PRN 30 days amitriptyline 1 tab PO BEDTIME amlodipine 1 tab PO QAM aspirin 1 tab PO QAM atorvastatin 1 tab PO BEDTIME cyclobenzaprine 10 mg PO TID PRN dicyclomine 20 mg PO QID 30 days duloxetine 1 cap PO QAM finasteride 1 tab PO DAILY jiigqbfhmkg-fyilqtkwb-sbbxvpfu 200-62.5-25 mcg (Trelegy Ellipta) 1 inh inhalation DAILY 30 days gabapentin 1 tab PO TID ipratropium-albuterol 0.5 mg-3 mg(2.5 mg base)/3 mL 3 mL inhalation Q4H PRN lidocaine 5% (Lidoderm) 1 patch topical DAILY metformin ER 0 mg PO metoprolol tartrate 1 tab PO montelukast 10 mg PO BEDTIME nebulizers As directed omeprazole 40 mg PO BID prednisone PO daily; Take 2 tabs daily x 5 days, then 1 tablet daily x 5 days 10 days sildenafil (Viagra) 1 tab PO DAILY PRN terazosin 5 mg PO BEDTIME 90 days HPI HPI Comments History of Present Illness Details 63-year-old gentleman background history of hypertension, diabetes and asthma COPD overlap syndrome who is presenting with chest pain. He has been experiencing chest pain for approximately 1 month. He has been to the ER and had EKG performed and was ruled out. He has describing a sharp sensation on the left and right side of the chest which happens randomly. Mostly these symptoms are happening at rest. With activities he gets some dyspnea and occasionally chest discomfort. EKGs showing sinus bradycardia. He has hypertension but blood pressure appears to be well controlled. He also has asthma and is currently on inhalers and montelukast. He smokes marijuana occasionally. No other drug use. [facility] Medical History Flank lipoma Epidermal inclusion cyst Atelectasis Asthma-COPD overlap syndrome IBS (irritable bowel syndrome) Umbilical hernia Diabetes Arthritis Back pain GERD (gastroesophageal reflux disease) Bipolar 1 disorder Anxiety Depression Elevated cholesterol Tension pneumothorax, spontaneous Hypertension Asthma Surgical History S/P excision of lipoma (02/20/23) History of excision of mass (12/13/22) Hx of colonoscopy Hx of tracheostomy History of lung surgery Hx of hernia repair Family History Mother Stomach cancer Brother Prostate cancer Brother Prostate cancer Social History Household Members: None Housing: Apartment Do you presently have visiting nurse or other home services: No Alcohol intake: current Alcohol intake frequency: a few times a week Patient Tobacco Use Status: Never used Tobacco e-Cigarette/Vaping Use: Never Used Second Hand Smoke Exposure: No Substance Use Type: Former Substance User and Marijuana Advance Directives Date on File: 03/28/21 service: No Current occupational status: unemployed Review of Systems Const Reports chills, Reports fatigue, Reports fever(s), Reports frequent falls, Reports weakness, Reports weight gain and Reports weight loss ENT Reports dizziness Card Reports chest pain, Reports leg edema, Reports lightheadedness, Reports palpitations, Reports dyspnea, Reports dyspnea on exertion and Reports orthopnea Resp Reports cough, Reports dyspnea and Reports dyspnea on exertion GI Reports bloating and Reports change in bowel habits Musc Reports muscle weakness, Reports numbness and Reports tingling Neuro Reports dizziness, Reports frequent falls, Reports numbness, Reports tingling and Reports weakness Endo Reports fatigue and Reports palpitations Physical Exam Vital Signs: Last Vital Signs Pulse 57 07/29/23 15:01 BP 110/56 L 07/29/23 15:01 BMI result Body Mass Index 25.3 GENERAL APPEARANCE: in no acute distress, pleasant. NECK: no carotid bruit, no jugular venous distention. SKIN: no suspicious lesions, warm and dry. HEART: no murmurs, regular rate and rhythm. LUNGS: clear to auscultation bilaterally. ABDOMEN: soft, nontender. EXTREMITIES: no edema. PERIPHERAL PULSES: equal. NEUROLOGIC: No gross deficits, AAO X 3 Office Procedures EKG Details: Sinus bradycardia 57 beats per minute, normal ECG otherwise, QTC 418 milliseconds. [id number], Complete Assessment & Plan Assessment & Plan (1) Chest pain: Code(s): R07.9 - Chest pain, unspecified Qualifiers: Chest pain type: precordial pain Qualified Code(s): R07.2 - Precordial pain (2) Chest pain: Code(s): R07.9 - Chest pain, unspecified Plan 63-year-old gentleman who is here for assessment of chest pain. He has been experiencing chest pain for 1 month. He has been ruled out in the emergency department. As he had risk factors for coronary artery disease. EKG showing sinus bradycardia and has no dynamic changes. Chest pain also appears to be somewhat atypical. Blood pressure control is good. After discussion we have decided to do an exercise stress test. We will arrange that for him. He will see us back in few months. Thank you for allowing me to participate in the care of your patient. Please feel free to contact me if you have any questions. Orders: Orders CA stress test Today R07.9 - Chest pain, unspecified Coding Level of Care Code New Pt Level 4 (32272) Diagnoses Chest pain R07.2 Chest pain type: precordial pain CPT Codes EKG - CPT: 30082-[id number], Complete ([id number])
== END 2023-07-29 15:32 | disposition home or self-care (01) ==
PROVIDERS: PCP Internal Medicine; Visit Provider Internal Medicine Cardiovascular Disease
DX: R07.2 Precordial pain (principal); R07.9 Chest pain, unspecified
CPT/HCPCS: 93010; 99214

== ENCOUNTER → 2023-07-29 14:25 | Outpatient (BNVA) | payer OTHER, SELFPAY | PROVIDERS: PCP Internal Medicine; Visit Provider Internal Medicine Cardiovascular Disease | DX: R07.2 Precordial pain (principal) | CPT/HCPCS: 93005; 99212 ==

== ENCOUNTER 2023-08-16 13:58 | Outpatient (AMB) | payer OTHER, SELFPAY ==
[2023-08-16 14:24] VITALS: BP 110/60; PULSE 67; O2SAT 97; BMI 24.4
--- NOTE | 2023-08-16 14:24 | MHC.OFFVIS ---
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 He does not smoke cigarettes although he smokes marijuana. The patient has been having worsening respiratory symptoms. He has had multiple physicians hoping with his respiratory issues. Now she he is having issues with his neck. He is going to need surgery and that is coming up sometime in the end of November. Will going to try to help improve his respiratory capacity by optimizing his respiratory medications. In the meantime he understands that he smoking this is also been him there is response to therapy. Therefore he needs to work on avoiding any kind of smoking altogether and should continue to optimize respiratory therapy with medications provided. He will need undergo pulmonary function studies. Once I have those PFTs I can do a an addendum in order to complete a preoperative evaluation for him for surgery. The patient does have significant wheezing on examination. Will go ahead and optimize his respiratory therapy but given some prednisone and he does need to take it if he has not responded to the therapy or if he gets worse. We also looked at a CT scan of the chest that he had back in 2020. He has evidence of interstitial lung changes. Will continue to monitor of any progression of underlying interstitial lung disease. Right now on the last CT scan appears to be more chronic than acute. 08/16/2023 the patient is here for a pulmonary follow-up visit. He has been complaining of worsening cough and chest tightness now for the last 3 days. Denies any fevers or chills. Denies being exposed to COVID. He has been using his nebulizer on a regular basis. This has been partially helpful. Does have significant wheezing on examination. The patient does require prednisone at this time. prior to the flare-up the patient had been doing well on the current respiratory regimen. again, we did review his PFTs from November 2022 demonstrating severe COPD. In addition to that the patient had a chest x-ray from June 2023 demonstrating no acute disease. [facility] Medical History Flank lipoma Epidermal inclusion cyst Atelectasis Asthma-COPD overlap syndrome IBS (irritable bowel syndrome) Umbilical hernia Diabetes Arthritis Back pain GERD (gastroesophageal reflux disease) Bipolar 1 disorder Anxiety Depression Elevated cholesterol Tension pneumothorax, spontaneous Hypertension Asthma Surgical History S/P excision of lipoma (02/20/23) History of excision of mass (12/13/22) Hx of colonoscopy Hx of tracheostomy History of lung surgery Hx of hernia repair Family History Mother Stomach cancer Brother Prostate cancer Brother Prostate cancer Social History Household Members: None Housing: Apartment Do you presently have visiting nurse or other home services: No Alcohol intake: current Alcohol intake frequency: a few times a week Patient Tobacco Use Status: Never used Tobacco e-Cigarette/Vaping Use: Never Used Second Hand Smoke Exposure: No Substance Use Type: Former Substance User and Marijuana Advance Directives Date on File: 03/28/21 service: No Current occupational status: unemployed Review of Systems Const Denies fever(s) Eyes Denies change in vision ENT Denies change in voice and Reports nasal congestion Card Denies chest pain and Reports dyspnea on exertion Resp Reports chest congestion, Reports cough, Reports dyspnea on exertion and Reports wheezing GI Reports no additional complaints Musc Reports myalgias Skin/Breast Denies rash Neuro Reports no additional complaints Endo Reports no additional complaints Yusef/Lymph Denies lymphadenopathy Aller/Immun Reports wheezing Physical Exam Vital Signs: Last Vital Signs Pulse 67 08/16/23 14:24 BP 110/60 08/16/23 14:24 Pulse Ox 97 08/16/23 14:24 Oxygen Delivery Method Room Air 08/16/23 14:24 BMI result Body Mass Index 24.4 Const General: comfortable HEENT Head: Yes normocephalic Neck Neck: Yes supple Chest Chest palpation & inspection: normal inspection of the chest Resp Effort & Inspection: normal respiratory effort and able to speak in complete sentences Auscultation: rhonchi, wheezes and diminished lung sounds Cardio Rate: regular rate Rhythm: regular rhythm Heart sounds: S1 normal heart sound present and S2 normal heart sound present GI Palpation (GI): Soft to palpation Skin General skin exam: no rashes or lesions noted Extrem General: Yes clubbing and Yes cyanosis Assessment & Plan Assessment & Plan (1) Asthma-COPD overlap syndrome: Code(s): J44.9 - Chronic obstructive pulmonary disease, unspecified (2) Atelectasis: Code(s): J98.11 - Atelectasis Plan continue Trelegy 200 OK as needed continue singulair Prednisone taper Azithrmomycin x 5 days F/U 6 months Medications: New azithromycin 500 mg PO DAILY 5 days 5 tabs 0RF prednisone PO daily; Take 2 tabs daily x 5 days, then 1 tablet daily x 5 days 10 days 15 tabs 0RF Coding Level of Care Code Est Pt Level 4 (48968) Diagnoses Asthma-COPD overlap syndrome J44.9 Atelectasis J98.11 Time Spent (min) 17
== END 2023-08-16 14:36 | disposition home or self-care (01) ==
PROVIDERS: PCP Internal Medicine; Visit Provider Hospitalist
DX: J44.9 Chronic obstructive pulmonary disease, unspecified (principal); J98.11 Atelectasis
CPT/HCPCS: 99214

== ENCOUNTER → 2023-08-16 13:58 | Outpatient (BNVA) | payer OTHER, SELFPAY | PROVIDERS: PCP Internal Medicine; Visit Provider Hospitalist | DX: J44.9 Chronic obstructive pulmonary disease, unspecified (principal); J98.11 Atelectasis | CPT/HCPCS: 99212 ==

== ENCOUNTER → 2023-08-20 10:11 | Outpatient (REF) | payer OTHER, SELFPAY ==
--- NOTE | 2023-08-20 10:15 | CA_ITS ---
Acquisition Time: 2023-08-20 10:55:35 Total Exercise Time: 00:07:10 Test Indications: Chest Pain Medications: See H Protocol: TRACE Max HR: 137 BPM 88% of Pred: 155 BPM Max BP: 140/080 mmHG Max Work Load: 8.8 METS Exercise stress test exercise 7 min 10 sec of Trace protcol achieving 87% MPHR, with mild SOB, no chest discomfort, with isolated PVCs, with normotensive response to exercise, with scooping lead 2, aVF. Test reviewed with Dr. Lin. Referred By: Vazquez Monahan Overread By: Germaine Aguilar
== END ==
LOC: HO.CARD 10:11
PROVIDERS: PCP Internal Medicine; Visit Provider Internal Medicine Cardiovascular Disease
DX: R07.9 Chest pain, unspecified (principal)
CPT/HCPCS: 93017

== ENCOUNTER → 2023-08-20 10:15 | Outpatient (BNV) | payer OTHER, SELFPAY | PROVIDERS: PCP Internal Medicine; Visit Provider Nurse Practitioner | DX: R06.02 Shortness of breath (principal); R07.9 Chest pain, unspecified | CPT/HCPCS: 93016; 93018 ==

== ENCOUNTER 2023-10-14 23:19 | Emergency (ER) | payer OTHER, SELFPAY ==
--- NOTE | 2023-10-14 | ECG_ITS ---
Test Reason : CHEST PAIN Blood Pressure : / mmHG Vent. Rate : 078 BPM Atrial Rate : 078 BPM P-R Int : 156 ms QRS Dur : 102 ms QT Int : 374 ms P-R-T Axes : 031 -11 001 degrees QTc Int : 426 ms Normal sinus rhythm Minimal voltage criteria for LVH, may be normal variant ( R in aVL ) Borderline ECG When compared with ECG of 23-JUN-2023 20:24, No significant change was found Referred By: Generic ED Physician Electronically Signed By:KENDALL LUCERO MD
--- NOTE | ~2023-10-14 | XR_ITS ---
EXAMINATION: XR CHEST CLINICAL INFORMATION: Chest pain. COMPARISON: Chest radiograph 06/23/2023. TECHNIQUE: 2 views of the chest were obtained. FINDINGS: Chronic multifocal scarring and architectural distortion. Suggestion of mildly increased focal hazy opacities in the right infrahilar region. No pleural effusion or pneumothorax. Chronic multifocal subpleural thickening. Unchanged cardiomediastinal silhouette. No acute osseous findings. Thoracic spondylosis. XR/XR chest 2V IMPRESSION: 1. Mildly increased focal hazy opacities in the right infrahilar region which could be related with aspiration or developing infiltrates. 2. Chronic multifocal scarring and architectural distortion.
[2023-10-14 23:25] VITALS: BP 132/82; PULSE 78; RESP 20; TEMP 36.9; O2SAT 97; BMI 25.1
[2023-10-14 23:36] LABS: MANUAL DIFF FLAG NO
[2023-10-14 23:37] LABS: Basophils Percent Auto 0.5 % (0-2); Eosinophils Absolute Auto 0.2 X10*3/uL (0.0-0.4); Eosinophils Percent Auto 2.2 % (0-4); Hemoglobin 13.9 g/dl (14.0-18.0); Imm Gran Abs Auto 0.02 X10*3/uL (0.00-0.03); Imm Gran Pct Auto 0.2 % (0.0-0.4); Lymphocytes Percent Auto 22.7 % (20-40); Mean Corpuscular HGB Conc 34.8 g/dl (31.0-36.0); Mean Corpuscular Hemoglobin 29.8 pg (27.0-33.0); Mean Corpuscular Volume 85.8 fL (80.0-98.0); Mean Platelet Volume 9.7 fL (9.4-12.4); Monocytes Absolute Auto 1.3 X10*3/uL (0.1-1.2); Monocytes Percent Auto 14.5 % (2-11); Neutrophils Absolute Auto 5.3 x10*3/uL (2.0-8.3); Neutrophils Percent Auto 59.9 % (45-73); Platelet Count 251 X10*3/uL (160-400); Red Blood Count 4.66 X10*6/uL (4.60-5.80); Red Cell Distribution Width 12.6 % (11.0-16.0); White Blood Count 8.8 X10*3/uL (4.8-10.8)
[2023-10-14 23:58] LABS: Alanine Aminotransferase 17 U/L (0-40); Albumin Level 4.3 g/dL (3.5-5.0); Alkaline Phosphatase 80 U/L (39-117); Anion Gap 13 (12-20); Aspartate Amino Transferase 14 U/L (5-37); Bilirubin Total 0.2 mg/dL (0.0-1.0); Blood Urea Nitrogen 28 mg/dL (9-16); Calcium 9.6 mg/dL (8.4-10.2); Carbon Dioxide 24 mmol/L (22-29); Chloride 109 mmol/L (96-108); Creatinine Clr Calc Pharmacy 69.1; Estimated Glomerular Filt Rate > 60; Glucose Random 97 mg/dL (60-115); Sodium 142 mmol/L (135-145); Total Protein 7.7 g/dL (6.5-8.0)
[2023-10-15] LABS: Troponin-I High Sensitivity < 2.7 ng/L (<3.5-35.0)
[2023-10-15 01:52] VITALS: BP 136/87; PULSE 81; RESP 16; TEMP 36.8; O2SAT 95
[2023-10-15 02:28] LABS: Troponin-I High Sensitivity < 2.7 ng/L (<3.5-35.0)
[2023-10-15 03:50] VITALS: BP 127/81; PULSE 82; RESP 18; O2SAT 96
--- NOTE | 2023-10-15 06:36 | ED_ITS ---
HPI - Chest Pain General Chief Complaint: Chest Pain Stated Complaint: Chest pain Time Seen by Provider: 10/15/23 06:33 Source: patient Mode of arrival: ambulatory Limitations: no limitations History of Present Illness HPI narrative: Patient is a 63 year old assigned male at with a history of BPH and asthma presenting to the emergency department today with chest pain. Patient states that this morning he began having chest pain on the right side of his chest that is constant. Patient denies any dizziness, lightheadedness, abdominal pain, nausea, vomiting, fever, chills, blurry vision, double vision, loss of vision, difficulty breathing, shortness of breath, back pain, night sweats, pain with urination, increased urinary frequency, increased urinary urgency, blood in her urine or stool, syncope or a near syncopal episode, recent trauma or falls, bowel incontinence, bladder incontinence, bowel retention, bladder retention, or any other complaints at this time. MD complaint: chest pain Pain radiation: none Severity: mild Related Data Home Medications Medication Instructions Recorded Confirmed amitriptyline 100 mg tablet 1 tab PO BEDTIME 07/25/20 07/29/23 aspirin 81 mg tablet,delayed 1 tab PO QAM 07/25/20 07/29/23 release atorvastatin 40 mg tablet 1 tab PO BEDTIME 07/25/20 07/29/23 sildenafil 100 mg tablet (Viagra) 1 tab PO DAILY PRN Erectile 07/25/20 07/29/23 Dysfunction duloxetine 60 mg capsule,delayed 1 cap PO QAM 03/28/21 07/29/23 release gabapentin 800 mg tablet 1 tab PO TID 03/28/21 07/29/23 finasteride 5 mg tablet 1 tab PO DAILY 07/08/21 07/29/23 amlodipine 10 mg tablet 1 tab PO QAM 09/08/21 07/29/23 metoprolol tartrate 50 mg tablet 1 tab PO 09/08/21 07/29/23 metformin 500 mg tablet,extended 0 mg PO 10/26/22 07/29/23 release 24 hr nebulizers 10/26/22 07/23/23 tramadol 50 mg tablet 50 mg PO TID PRN 08/16/23 Previous Rx's Medication Instructions Recorded dicyclomine 20 mg tablet 20 mg PO QID 30 days #120 tabs 10/06/21 omeprazole 40 mg capsule,delayed 40 mg PO BID #60 caps 10/06/21 release ipratropium 0.5 mg-albuterol 3 mg 3 ml inhalation Q4H PRN shortness 06/28/22 (2.5 mg base)/3 mL nebulization of breath or wheezing #90 mL soln cyclobenzaprine 10 mg tablet 10 mg PO TID PRN muscle spasm #15 08/25/22 tabs lidocaine 5 % topical patch 1 patch topical DAILY #15 ea 08/25/22 (Lidoderm) albuterol sulfate 2.5 mg/3 mL 2.5 mg (3 mL) inhalation Q4H PRN 10/26/22 (0.083 %) solution for nebulization shortness of breath or wheezing 30 days #360 mL albuterol sulfate 90 mcg/actuation 2 puff PO Q4-6H PRN Shortness Of 10/26/22 aerosol inhaler Breath Or Wheezing 30 days #8.5 grams fluticasone fur. 200 mcg-umeclid 1 inh inhalation DAILY 30 days #60 10/26/22 62.5 mcg-vilant 25 mcg ea inhalat.powder (Trelegy Ellipta) montelukast 10 mg tablet 10 mg PO BEDTIME #30 tabs 06/20/23 terazosin 5 mg capsule 5 mg PO BEDTIME 90 days #90 caps 07/23/23 azithromycin 500 mg tablet 500 mg PO DAILY 5 days #5 tabs 08/16/23 prednisone 20 mg tablet See Rx Instructions PO DAILY 10 08/16/23 days #15 tabs doxycycline hyclate 100 mg tablet 100 mg PO BID 7 days #14 tabs 10/15/23 Allergies Allergy/AdvReac Type Severity Reaction Status Date / Time No Known Allergies Allergy Verified 10/14/23 23:25 [No Known Allergies*] Review of Systems 2 Constitutional: Constitutional: Reports no additional constitutional complaints, Denies chills, Denies fever(s) and Denies night sweats Eyes: Eyes: Reports no additional eye complaints, Denies blurry vision, Denies change in vision, Denies diplopia, Denies eye discharge, Denies loss of vision and Denies eye pain ENT: Denies dizziness Cardiovascular: Cardiovascular: Reports no additional cardiovascular complaints, Reports chest pain, Denies lightheadedness, Denies Loss of Consciousness and Denies dyspnea Respiratory: Respiratory: Reports no additional respiratory complaints and Denies dyspnea Gastrointestinal: Gastrointestinal: Reports no additional gastrointestinal complaints, Denies abdominal pain, Denies melena, Denies hematochezia, Denies change in bowel habits and Denies change in stool character Genitourinary: Genitourinary: Reports no additional male genitourinary complaints, Denies hematuria, Denies oliguria, Denies difficulty urinating, Denies dysuria, Denies urinary frequency, Denies urinary hesitancy, Denies urinary incontinence and Denies urinary urgency Musculoskeletal: Musculoskeletal: Reports no additional musculoskeletal complaints, Denies numbness and Denies tingling Neurologic: Denies dizziness, Denies loss of vision, Denies numbness and Denies tingling Psychiatric: Psychiatric: Reports no additional psychiatric complaints Endocrine: Endocrine: Reports no additional endocrine complaints Hematologic/Lymphatic: Hematologic/Lymphatic: Reports no additional hematologic/lymphatic complaints Allergic/Immunologic: Allergic/Immunologic: Reports no additional allergic/immunologic complaints PMFSH Past Medical History Attestation statement: The following information was validated with the patient. Source: old records reviewed and nursing notes reviewed Medical History Flank lipoma Epidermal inclusion cyst Atelectasis Asthma-COPD overlap syndrome IBS (irritable bowel syndrome) Umbilical hernia Diabetes Arthritis Back pain GERD (gastroesophageal reflux disease) Bipolar 1 disorder Anxiety Depression Elevated cholesterol Tension pneumothorax, spontaneous Hypertension Asthma Surgical History S/P excision of lipoma (02/20/23) History of excision of mass (12/13/22) Hx of colonoscopy Hx of tracheostomy History of lung surgery Hx of hernia repair Family History Family History Mother Stomach cancer Brother Prostate cancer Brother Prostate cancer Social History Social History Household Members: None Housing: Apartment Do you presently have visiting nurse or other home services: No Alcohol intake: current Alcohol intake frequency: a few times a month Alcohol type: beer Patient Tobacco Use Status: Never used Tobacco Smoked in Last 30 Days: No e-Cigarette/Vaping Use: Never Used Second Hand Smoke Exposure: No Use of substances other than those prescribed or required for medical reasons: Yes Substance Use Type: Marijuana Substance Use Frequency: Occasionally Last Used Substance: Weeks (ago) Advance Directives: Yes Advance Directives on File: Yes Advance Directives Date on File: 03/28/21 service: No Current occupational status: unemployed Physical Exam 2 Vital Signs: Vital Signs: Last Vital Signs Temp 97.8 F 10/15/23 07:11 Pulse 72 10/15/23 07:11 Resp 16 10/15/23 07:11 BP 114/61 10/15/23 07:11 Pulse Ox 97 10/15/23 07:11 O2 Del Method Room Air 10/15/23 07:11 BMI result Body Mass Index 25.1 Const: General: cooperative, no acute distress, alert and awake Nutritional Appearance: well nourished Orientation/consciousness: patient oriented x3 Limitations: no limitations HEENT: Head: Yes normal to inspection and Yes atraumatic Ears: hearing grossly normal bilaterally and external ears normal General nose exam: Normal external nose present, no nasal discharge noted and no epistaxis Face and sinus: Yes normal facial exam, No abrasion and No laceration Mouth: Normal oral and palatal mucosa present, no drooling and no muffled voice Eyes: General: appearance normal, both eyes and all related structures P eriorbital: periorbital findings normal Eyelids: Yes eyelids normal C onjunctivae: conjunctivae normal Pupils: Equal, round and reactive pupils present EOM: EOMs intact bilaterally Neck: Neck: Yes normal visual inspection, Yes full ROM and Yes no lymphadenopathy Chest: Chest palpation & inspection: normal inspection of the chest Resp: Effort & Inspection: normal respiratory effort and able to speak in complete sentences Auscultation: clear to auscultation bilaterally GI: Inspection: Yes normal to inspection Neuro: General: patient oriented x3 and moves all extremities Cranial nerves: Yes Equal, round and reactive pupils present Cognition (Neuro): n ormal cognition Motor exam (neuro): 5/5 motor strength present throughout Sensory Exam: Normal double simultaneous stimulation for sensation C oordination: [id number] test normal Extrem: General: Yes normal to inspection, Yes full ROM and Yes capillary refill normal Psych: Appearance: grossly normal Mental Status: mental status grossly normal Affect: normal affect Attitude: cooperative Thought process: N ormal thought process present Thought content: Normal thought content present Insight: Good insight present (Psych) Medical Decision Making Medical Decision Making MDM Narrative: Patient is a 63 year old assigned male at with a history of GERD and asthma presenting to the emergency department today with right sided chest pain. Patient's physical exam was unremarkable. Patient's blood work was unremarkable. Patient's EKG was unremarkable. Patient's chest x-ray showed a possible evolving infiltrate in the R lung. I explained my physical exam findings as well as all test results to the patient. I answered all questions asked by the patient. I stressed the importance of the patient taking his medication as prescribed. I stressed the importance of the patient following up with his primary care provider. I stressed the importance of the patient returning to the emergency department immediately if his symptoms were to worsen or if he were to develop any dizziness, shortness of breath, difficulty breathing, chest pain, blurry vision, loss of vision, nausea, vomiting, abdominal pain, fever, chills, back pain, or any other complaints. Patient verbalized agreement and understanding with this treatment plan and discharge. Differential Diagnosis Differential Diagnoses: The differential diagnosis associated with the presentation includes Chest pain NSTEMI STEMI Pneumonia COVID-19 Influenza RSV Admission/Observation Consideration of admission/observation: Escalation of care including admission/observation considered Patient would have been admitted to the hospital had his work up had any findings where hospital admission was appropriate and his clinical presentation warranted hospital admission. Lab Data [facility] Lab Attestation statement: I reviewed the patient's lab results. My interpretation of these results are in the [facility] Rationale portion of this note. 10/14/23 23:29 10/14/23 23:29 Labs: Lab Results 10/14/23 10/15/23 Range/Units 23:29 01:59 WBC 8.8 (4.8-10.8) X10*3/uL RBC 4.66 (4.60-5.80) X10*6/uL Hgb 13.9 L (14.0-18.0) g/dl Hct 40.0 L (42.0-52.0) % MCV 85.8 (80.0-98.0) fL MCH 29.8 (27.0-33.0) pg MCHC 34.8 (31.0-36.0) g/dl RDW 12.6 (11.0-16.0) % Plt Count 251 (160-400) X10*3/uL MPV 9.7 (9.4-12.4) fL Immature Gran % (Auto) 0.2 (0.0-0.4) % Neut % (Auto) 59.9 (45-73) % Lymph % (Auto) 22.7 (20-40) % [place] % (Auto) 14.5 H (2-11) % Eos % (Auto) 2.2 (0-4) % Baso % (Auto) 0.5 (0-2) % Lymph # (Auto) 2.0 (1.2-4.9) X10*3/uL [place] # (Auto) 1.3 H (0.1-1.2) X10*3/uL Eos # (Auto) 0.2 (0.0-0.4) X10*3/uL Baso # (Auto) 0.0 (0.0-0.2) X10*3/uL Abs Immat Gran (auto) 0.02 (0.00-0.03) X10*3/uL Absolute Neuts (auto) 5.3 (2.0-8.3) x10*3/uL Absolute Nucleated RBC 0.000 (0.0-0.012) X10*3/uL Nucleated RBC % (auto) 0.0 (0.0-0.2) /100WBC Sodium 142 (135-145) mmol/L Potassium 4.0 (3.3-5.1) mmol/L Chloride 109 H (96-108) mmol/L Carbon Dioxide 24 (22-29) mmol/L Anion Gap 13 (12-20) BUN 28 H (9-16) mg/dL Creatinine 1.10 (0.5-1.4) mg/dL Estim Creat Clear Calc 69.1 Estimated GFR > 60 Random Glucose 97 (60-115) mg/dL Calcium 9.6 (8.4-10.2) mg/dL Total Bilirubin 0.2 (0.0-1.0) mg/dL AST 14 (5-37) U/L ALT 17 (0-40) U/L Alkaline Phosphatase 80 (39-117) U/L Troponin I High Sens < 2.7 < 2.7 (<3.5-35.0) ng/L Total Protein 7.7 (6.5-8.0) g/dL Albumin 4.3 (3.5-5.0) g/dL Independent Interpretation I performed an independent interpretation of an: EKG and Plain X-Ray Interpretation: My interpretation is in agreement with the radiologist's impression of this imaging study. - EXAMINATION: XR CHEST CLINICAL INFORMATION: Chest pain. COMPARISON: Chest radiograph 06/23/2023. TECHNIQUE: 2 views of the chest were obtained. FINDINGS: Chronic multifocal scarring and architectural distortion. Suggestion of mildly increased focal hazy opacities in the right infrahilar region. No pleural effusion or pneumothorax. Chronic multifocal subpleural thickening. Unchanged cardiomediastinal silhouette. No acute osseous findings. Thoracic spondylosis. XR/XR chest 2V IMPRESSION: 1. Mildly increased focal hazy opacities in the right infrahilar region which could be related with aspiration or developing infiltrates. 2. Chronic multifocal scarring and architectural distortion. Dictated By: Shayna Rios Signed By: Electronically signed by Shayna Rios 10/14/23 2352 - Vent. Rate: 078 BPM Atrial Rate: 078 BPM P-R Int: 156 ms QRS Dur: 102 ms QT Int: 374 ms P-R-T Axes: 031 -11 001 degrees QTc Int: 426 ms Normal sinus rhythm Minimal voltage criteria for LVH, may be normal variant (R in aVL) Borderline ECG When compared with ECG of 23-JUN-2023 20:24, No significant change was found DD/ 2322 Radiology Impression Discussion of test interpretation with radiology: I have reviewed the radiologist's reading. Prescription Management I considered prescription management with: Antibiotic (patient prescribed an antibiotic for PNA) Discharge Plan Discharge Clinical Impression: Pneumonia Patient Disposition: Home, Self-Care Instructions: Pneumonia (ED) Additional Instructions: Follow up with your primary care provider. Return to the emergency department immediately if your symptoms worsen or if you develop any dizziness, shortness of breath, difficulty breathing, chest pain, blurry vision, loss of vision, nausea, vomiting, abdominal pain, fever, chills, back pain, or any other complaints. Prescriptions: New doxycycline hyclate 100 mg tablet 100 mg PO BID 7 Days Qty: 14 0RF No Action montelukast 10 mg tablet 10 mg PO BEDTIME Qty: 30 4RF atorvastatin 40 mg tablet 1 tab PO BEDTIME aspirin 81 mg tablet,delayed release (DR/EC) 1 tab PO QAM sildenafil [Viagra] 100 mg tablet 1 tab PO DAILY PRN (Reason: Erectile Dysfunction) amitriptyline 100 mg tablet 1 tab PO BEDTIME duloxetine 60 mg capsule,delayed release(DR/EC) 1 cap PO QAM gabapentin 800 mg tablet 1 tab PO TID finasteride 5 mg tablet 1 tab PO DAILY amlodipine 10 mg tablet 1 tab PO QAM metoprolol tartrate 50 mg tablet 1 tab PO ipratropium-albuterol 0.5 mg-3 mg(2.5 mg base)/3 mL solution for nebulization 3 ml inhalation Q4H PRN (Reason: shortness of breath or wheezing) Qty: 90 0RF Rx Instructions: until breathing returns to target peak flow/parameters cyclobenzaprine 10 mg tablet 10 mg PO TID PRN (Reason: muscle spasm) Qty: 15 0RF lidocaine [Lidoderm] 5 % adhesive patch,medicated 1 patch topical DAILY Qty: 15 0RF Rx Instructions: leave on most painful area for up to 12 hrs dicyclomine 20 mg tablet 20 mg PO QID 30 Days Qty: 120 6RF omeprazole 40 mg capsule,delayed release(DR/EC) 40 mg PO BID Qty: 60 6RF metformin 500 mg tablet extended release 24 hr 0 mg PO (DME) nebulizers Misc See Rx Instructions .Route Rx Instructions: As directed albuterol sulfate 90 mcg/actuation HFA aerosol inhaler 2 puff PO Q4-6H PRN (Reason: Shortness Of Breath Or Wheezing) 30 Days Qty: 8.5 11RF albuterol sulfate 2.5 mg /3 mL (0.083 %) solution for nebulization 2.5 mg inhalation Q4H PRN (Reason: shortness of breath or wheezing) 30 Days Qty: 360 11RF Trelegy Ellipta 200-62.5-25 mcg blister with device 1 inh inhalation DAILY 30 Days Qty: 60 12RF terazosin 5 mg capsule 5 mg PO BEDTIME 90 Days Qty: 90 3RF tramadol 50 mg tablet 50 mg PO TID PRN prednisone 20 mg tablet See Rx Instructions PO DAILY 10 Days Qty: 15 0RF Rx Instructions: PO daily; Take 2 tabs daily x 5 days, then 1 tablet daily x 5 days azithromycin 500 mg tablet 500 mg PO DAILY 5 Days Qty: 5 0RF Referrals: [facility] Family Medicine [Provider Group] (Call to establish and follow up with a primary care provider. If you already have a primary care provider, please follow up with them.) [facility] Primary Care, Joleen [Provider Group] (Call to establish and follow up with a primary care provider. If you already have a primary care provider, please follow up with them.) [facility] Primary Care,Wolfgang [Provider Group] (Call to establish and follow up with a primary care provider. If you already have a primary care provider, please follow up with them.) Stand Alone Forms: Work/School Release Interventions: ED Discharge Assessment Last Done: 10/15/23 07:11 Discharge Date/Time: 10/15/23 07:12 Print Language: Occitan
[2023-10-15 06:46] VITALS: BP 114/61; PULSE 76; RESP 16; TEMP 36.7; O2SAT 95
[2023-10-15 07:11] VITALS: BP 114/61; PULSE 72; RESP 16; TEMP 36.6; O2SAT 97
== END 2023-10-15 07:12 | disposition home or self-care (01) ==
PROVIDERS: Emergency Provider Emergency Medicine
DX: J18.9 Pneumonia, unspecified organism (principal); J45.909 Unspecified asthma, uncomplicated; E11.9 Type 2 diabetes mellitus without complications; I10 Essential (primary) hypertension
CPT/HCPCS: 36415; 71046; 80053; 84484; 85025; 93005; 99283; 99285

== ENCOUNTER → 2023-10-14 23:22 | Outpatient (BNV) | payer OTHER, SELFPAY | PROVIDERS: Emergency Provider Emergency Medicine; Visit Provider Internal Medicine Cardiovascular Disease | DX: R07.9 Chest pain, unspecified (principal) | CPT/HCPCS: 93010 ==

== ENCOUNTER 2023-12-24 11:41 | Outpatient (AMB) | payer OTHER, SELFPAY ==
--- NOTE | 2023-12-24 11:42 | MHC.OFFVIS ---
Vital Signs 12/24/23 11:53 12/24/23 12:14 Height 5 ft 10 in Weight 175 lb 0.752 oz BMI 25.1 BP 114/71 100/76 Blood Pressure Location Rt brachial Position Sitting Pulse 71 Intake Visit Reasons: Gastroesophageal reflux disease (GERD) Intake Note: Francisco J presents to in office visit today for GERD. CC: Patient c/o heartburn, acid reflux, and a lot of burping mostly at night. He states sometimes he is burping for about an hour. 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 He is not well acquainted with the names of his medicines but confirms that he continues to take the blue pill with good control abuse cramping and diarrhea.? He is also doing well on his omeprazole for his heartburn.? He recently had umbilical surgery for hernia repair and is recovering well.? Return office visit in 6 months as he continues to be satisfied with his GI regimen. (2) IBS (irritable bowel syndrome): ?Code(s): K58.9 - Irritable bowel syndrome without diarrhea (3) Fecal incontinence: ?Code(s): R15.9 - Full incontinence of feces ? ? ? Medications: Changed From omeprazole 1 cap? PO BID ? ? To omeprazole 40 mg? PO BID 60 caps 6RF ? ? Refilled dicyclomine 20 mg? PO QID 30 days 120 tabs 6RF K58.9 - Irritable bowel syndrome without diarrhea, R15.9 - Full incontinence of feces ? TODAY'S VISIT This patient has been lost to follow-up since 2021. Swedish # translate per patient request He is having a great deal of burping and HB and flatulence. 2022 CT = no gallstones. NO new meds, but not getting bid omeprazole from pcp or bentyl. Will add simethicone no CIC or diarrhea. I am going to restart the meds and see how he does before I order diagnostic tests. He has a bump in his mouth/cheek. No resolution w/ magic mouthwash. Looks bony to me just a bit of asymmetric and I recommend he consult with his dentist. No pain. This could be related to dental issues or simply it a developmental asymmetry that he only just recently noticed. ROV 6 weeks. [facility] Medical History (Updated 12/24/23 @ 17:15 by BRIGITTE Larson) REJI (acute kidney injury) Urgency of micturition Urinary hesitancy Nocturia more than twice per night Benign prostatic hyperplasia with weak urinary stream Epidermal inclusion cyst Atelectasis Fecal incontinence Flank lipoma Asthma-COPD overlap syndrome IBS (irritable bowel syndrome) Umbilical hernia Diabetes Arthritis Back pain GERD (gastroesophageal reflux disease) Bipolar 1 disorder Anxiety Depression Elevated cholesterol Tension pneumothorax, spontaneous Hypertension Asthma Surgical History S/P excision of lipoma (02/20/23) History of excision of mass (12/13/22) Hx of colonoscopy Hx of tracheostomy History of lung surgery Hx of hernia repair Family History Mother Stomach cancer Brother Prostate cancer Brother Prostate cancer Social History Household Members: None Housing: Apartment Do you presently have visiting nurse or other home services: No Alcohol intake: current Alcohol intake frequency: a few times a month Alcohol type: beer Patient Tobacco Use Status: Never used Tobacco e-Cigarette/Vaping Use: Never Used Second Hand Smoke Exposure: No Substance Use Type: Marijuana Advance Directives Date on File: 03/28/21 service: No Current occupational status: unemployed Review of Systems Const Denies fatigue, Denies fever(s), Denies night sweats, Denies poor appetite and Denies weight loss ENT Reports Normal hearing present, Denies dental pain, Denies dysphagia, Denies hearing loss, Denies mouth pain, Denies odynophagia, Denies throat swelling, Denies tongue swelling and Reports other (Dentition adequate) Card Reports no additional complaints Resp Reports no additional complaints GI Details: Denies abdominal pain, Denies melena, Reports bloating, Denies hematochezia, Denies constipation, Reports GI cramping, Denies dysphagia, Reports excessive flatus, Denies early satiety, Reports heartburn, Denies diarrhea, Denies nausea, Denies odynophagia, Denies vomiting and Denies hematemesis Skin/Breast Denies pruritus, Denies lesions, Denies rash and Denies jaundice Neuro Reports Normal hearing present and Denies Abnormal speech present Endo Denies fatigue Aller/Immun Denies throat swelling and Denies tongue swelling Physical Exam Vital Signs: Last Vital Signs Pulse 71 12/24/23 11:53 BP 100/76 12/24/23 12:14 BMI result Body Mass Index 25.1 Const General: cooperative, no acute distress, well developed and well groomed Nutritional Appearance: average body habitus and well nourished Orientation/consciousness: oriented to person, oriented to place and oriented to time Limitations: language barrier HEENT Head: Yes normocephalic and Yes atraumatic Eyes General: appearance normal, both eyes and all related structures Pupils: Equal, round and reactive pupils present Neck Neck: Yes normal visual inspection and Yes no lymphadenopathy Thyroid: Thyroid normal Resp Effort & Inspection: normal respiratory effort and able to speak in complete sentences Auscultation: clear to auscultation bilaterally Cardio Rate: regular rate Rhythm: regular rhythm Heart sounds: Normal, physiologic split S2 sound present Peripheral pulses: radial pulses present and posterior tibial pulses present GI Inspection: No distended and No Abdominal panniculus present Palpation (GI): Soft to palpation, nontender, no guarding, not rigid and No hepatosplenomegaly present Percussion: Yes normal to percussion Auscultation: normal bowel sounds Rectal Exam - Male: Yes deferred Skin General skin exam: no rashes or lesions noted, turgor normal, skin not dry, no jaundice, No spider nevi and no striae Rashes: no rashes Nails: normal Neuro General: oriented to person, oriented to place and oriented to time Cranial nerves: Yes Equal, round and reactive pupils present and Yes Normal hearing present Speech: No Abnormal speech present Extrem General: Yes normal to inspection, No clubbing, No cyanosis and No edema Psych Appearance: grossly normal and well kempt Mental Status: mental status grossly normal Speech and movement: Normal speech and movement present Affect: normal affect Attitude: cooperative Thought process: not confabulating and Impoverished thought process present Thought content: Normal thought content present Insight: Limited insight present (Psych) Judgement: Limited judgement present (Psych) Assessment & Plan Assessment & Plan (1) GERD (gastroesophageal reflux disease): Code(s): K21.9 - Gastro-esophageal reflux disease without esophagitis Category: Medical (2) IBS (irritable bowel syndrome): Code(s): K58.9 - Irritable bowel syndrome without diarrhea Category: Medical (3) Abdominal bloating: Code(s): R14.0 - Abdominal distension (gaseous) Category: Medical Plan This patient has been lost to follow-up since 2021. Swedish # translate per patient request He is having a great deal of burping and HB and flatulence. 2022 CT = no gallstones. NO new meds, but not getting bid omeprazole from pcp or bentyl. Will add simethicone no CIC or diarrhea. I am going to restart the meds and see how he does before I order diagnostic tests. He has a bump in his mouth/cheek. No resolution w/ magic mouthwash. Looks bony to me just a bit of asymmetric and I recommend he consult with his dentist. No pain. This could be related to dental issues or simply it a developmental asymmetry that he only just recently noticed. ROV 6 weeks. Medications: New simethicone after meals 180 mg PO QID 120 caps 3RF 30 days Refilled omeprazole 40 mg PO BID 60 caps 6RF dicyclomine 20 mg PO QID 120 tabs 6RF 30 days K58.9 - Irritable bowel syndrome without diarrhea, R15.9 - Full incontinence of feces Coding Level of Care Code Est Pt Level 3 (13342) Diagnoses GERD (gastroesophageal reflux disease) K21.9 IBS (irritable bowel syndrome) K58.9 Abdominal bloating R14.0
[2023-12-24 11:53] VITALS: BP 114/71; PULSE 71; BMI 25.1
[2023-12-24 12:14] VITALS: BP 100/76
== END 2023-12-24 12:24 | disposition home or self-care (01) ==
PROVIDERS: Visit Provider Nurse Practitioner
DX: K21.9 Gastro-esophageal reflux disease without esophagitis (principal); K58.9 Irritable bowel syndrome, unspecified; R14.0 Abdominal distension (gaseous)
CPT/HCPCS: 99213

== ENCOUNTER → 2023-12-24 11:41 | Outpatient (BNVA) | payer OTHER, SELFPAY | PROVIDERS: Visit Provider Nurse Practitioner | DX: K21.9 Gastro-esophageal reflux disease without esophagitis (principal); K58.9 Irritable bowel syndrome, unspecified; R14.0 Abdominal distension (gaseous) | CPT/HCPCS: 99212 ==

== ENCOUNTER 2024-01-08 08:05 | Outpatient (REF) | payer OTHER, SELFPAY ==
--- NOTE | ~2024-01-08 | FL_ITS ---
EXAMINATION: XR FLUOROSCOPY UPPER GI WITH AIR CLINICAL INFORMATION: Dysphagia COMPARISON: None TECHNIQUE: Fluoroscopic air contrast upper GI examination was performed utilizing standard techniques with thin and thick barium and effervescent granules. Numerous spot images were obtained. FINDINGS: Lateral mass screws are identified dorsally at C3-C6. Lateral cine images of the oropharynx and hypopharynx demonstrate normal swallow mechanism with normal epiglottic inversion and soft palate elevation. There is mild laryngeal penetration with thick barium. No tracheal penetration or subglottic aspiration identified. No nasopharyngeal reflux present. A small anterior cervical web is present just below the hypopharynx (RF1-5, 46-47/142). Dual and single contrast images of the esophagus demonstrate normal caliber, contour, and mucosal pattern. No evidence of stricture, mass, or ulcerations identified. Esophageal peristalsis is mildly disorganized. A very small type I hiatal hernia is present. A small amount of gastroesophageal reflux is seen up to the mid esophagus. Dual contrast and single contrast images of the stomach demonstrated a normal contour. Evaluation of the gastric mucosa is limited due to lack of distention from poor tolerance of the effervescent granules. The gastric rugal folds have a thickened appearance, which may represent gastritis, however, may be also due to underdistention of the stomach. No obvious masses or ulcerations are seen. Contrast freely passed into the gastric antrum and duodenal bulb without delay. Single and air-contrast images of the duodenal bulb demonstrate no abnormality. The duodenal sweep has a normal appearance, course, and mucosal fold appearance. A large diverticulum is present in the distal third segment of the duodenum. No malrotation. The imaged proximal jejunum has a normal fold pattern and caliber. FLUOROSCOPY TIME: 4 minutes 21 seconds Number of Spot Images: 9 Number of Cine: 15 DOSE AREA PRODUCT: 3096 uGy-m2 (microgray-meter squared) FL/FL barium swallow with air IMPRESSION: 1. Trace laryngeal penetration with thick barium. No subglottic aspiration. 2. Small anterior cervical web just below the hypopharynx. This is unlikely contributing to the patient's symptoms. 3. Mildly disorganized esophageal peristalsis. 4. Very small type I hiatal hernia with mild gastroesophageal reflux. 5. Limited evaluation of the gastric mucosa due to lack of distention from poor tolerance of the effervescent granules. The gastric rugal folds have a thickened appearance, which may represent gastritis. 6. Large diverticulum in the distal third segment of the duodenum. This procedure was performed by Miguel Tabares PA-C, and supervised by Dr. Aguilar
== END 2024-01-08 08:06 | disposition home or self-care (01) ==
LOC: HO.XRAY 08:05
PROVIDERS: PCP Internal Medicine; Visit Provider Internal Medicine
DX: R13.10 Dysphagia, unspecified (principal)
CPT/HCPCS: 74221

== ENCOUNTER → 2024-01-08 08:06 | Outpatient (BNV) | payer OTHER, SELFPAY | PROVIDERS: PCP Internal Medicine; Visit Provider Physician Assistant Surgical | DX: R13.10 Dysphagia, unspecified (principal) | CPT/HCPCS: 74246 ==

== ENCOUNTER 2024-01-13 13:31 | Outpatient (AMB) | payer OTHER, SELFPAY ==
[2024-01-13 13:32] VITALS: BP 130/62; PULSE 64; BMI 24.9
--- NOTE | 2024-01-13 13:32 | A.OFFVIS_ITS ---
Vital Signs 01/13/24 13:32 Height 5 ft 10 in Weight 173 lb 11.588 oz BMI 24.9 BP 130/62 Blood Pressure Location Rt brachial Position Sitting Pulse 64 Pulse Source Pulse Oximeter Intake Visit Reasons: r/s 11/11/23 3 mos followup Felt Tipping Machine Tender Required: Yes Felt Tipping Machine Tender Name: Chelly/sharifacom/citizen of [place] Accompanied by: Self / Same As Patient Allergies No Known Allergies [No Known Allergies*] Allergy (Verified 12/24/23 12:03) Medication List - Last Reconciled 01/13/24 by Vazquez Monahan MD albuterol sulfate 90 mcg/actuation 2 puffs PO Q4-6H PRN 30 days albuterol sulfate 2.5 mg (3 mL) inhalation Q4H PRN 30 days amitriptyline 1 tab PO BEDTIME amlodipine 1 tab PO QAM aspirin 1 tab PO QAM atorvastatin 1 tab PO BEDTIME dicyclomine 20 mg PO QID 30 days duloxetine 1 cap PO QAM finasteride 1 tab PO DAILY svsywrrobgy-rrtimsapw-mugfdelo 200-62.5-25 mcg (Trelegy Ellipta) 1 inh inhalation DAILY 30 days ipratropium-albuterol 0.5 mg-3 mg(2.5 mg base)/3 mL 3 mL inhalation Q4H PRN lidocaine 5% (Lidoderm) 1 patch topical DAILY metformin ER 500 mg PO BID metoprolol tartrate 1 tab PO montelukast 10 mg PO BEDTIME nebulizers As directed omeprazole 40 mg PO BID sildenafil (Viagra) 1 tab PO DAILY PRN simethicone 180 mg PO QID 30 days terazosin 5 mg PO BEDTIME 90 days tramadol 50 mg PO TID PRN HPI Comments Details: 63-year-old gentleman background history of hypertension, diabetes and asthma COPD overlap syndrome who is presenting with chest pain. He has been experiencing chest pain for approximately 1 month. He has been to the ER and had EKG performed and was ruled out. He has describing a sharp sensation on the left and right side of the chest which happens randomly. Mostly these symptoms are happening at rest. With activities he gets some dyspnea and occasionally chest discomfort. EKGs showing sinus bradycardia. He has hypertension but blood pressure appears to be well controlled. He also has asthma and is currently on inhalers and montelukast. He smokes marijuana occasionally. No other drug use. 01/13/2024: He returns for follow-up. He was previously referred for exercise stress test. He was able to exercise for 7 minute 10 seconds on Jeremias protocol achieving 87% of maximum predicted heart rate and max workload of 8.8 Mets. He developed some ECG changes in his inferior leads but did not have any symptoms. He returns and he is complaining of some fatigue and off and on pressure-like chest discomfort. He also has acid reflux and started seeing gastroenterology recently. [facility] Medical History (Updated 12/24/23 @ 17:15 by BRIGITTE Larson) REJI (acute kidney injury) Urgency of micturition Urinary hesitancy Nocturia more than twice per night Benign prostatic hyperplasia with weak urinary stream Epidermal inclusion cyst Atelectasis Fecal incontinence Flank lipoma Asthma-COPD overlap syndrome IBS (irritable bowel syndrome) Umbilical hernia Diabetes Arthritis Back pain GERD (gastroesophageal reflux disease) Bipolar 1 disorder Anxiety Depression Elevated cholesterol Tension pneumothorax, spontaneous Hypertension Asthma Surgical History S/P excision of lipoma (02/20/23) History of excision of mass (12/13/22) Hx of colonoscopy Hx of tracheostomy History of lung surgery Hx of hernia repair Family History Mother Stomach cancer Brother Prostate cancer Brother Prostate cancer Social History Household Members: None Housing: Apartment Do you presently have visiting nurse or other home services: No Alcohol intake: current Alcohol intake frequency: a few times a month Alcohol type: beer Patient Tobacco Use Status: Never used Tobacco e-Cigarette/Vaping Use: Never Used Second Hand Smoke Exposure: No Substance Use Type: Marijuana Advance Directives Date on File: 03/28/21 service: No Current occupational status: unemployed Review of Systems Const Denies chills, Denies fatigue, Denies fever(s), Denies frequent falls, Denies weakness, Denies weight gain and Denies weight loss ENT Denies dizziness Card Denies chest pain, Denies leg edema, Denies lightheadedness, Denies palpitations, Denies dyspnea and Denies dyspnea on exertion Resp Denies cough, Denies dyspnea and Denies dyspnea on exertion GI Denies hematochezia Musc Denies abnormal gait, Denies muscle weakness, Denies numbness, Denies radiating pain into limb and Denies tingling Neuro Denies abnormal gait, Denies dizziness, Denies frequent falls, Denies numbness, Denies tingling and Denies weakness Endo Denies fatigue and Denies palpitations Physical Exam Vital Signs: Last Vital Signs Pulse 64 01/13/24 13:32 BP 130/62 01/13/24 13:32 BMI result Body Mass Index 24.9 GENERAL APPEARANCE: in no acute distress, pleasant. NECK: no carotid bruit, no jugular venous distention. SKIN: no suspicious lesions, warm and dry. HEART: no murmurs, regular rate and rhythm. LUNGS: clear to auscultation bilaterally. ABDOMEN: soft, nontender. EXTREMITIES: no edema. PERIPHERAL PULSES: equal. NEUROLOGIC: No gross deficits, AAO X 3 Assessment & Plan Assessment & Plan (1) Chest pain: Code(s): R07.9 - Chest pain, unspecified Category: Medical Plan Pleasant 63 year gentleman who is here for follow-up. He was seen for chest discomfort underwent exercise stress test where he was able to exercise for 7 minute 10 seconds and did not get chest discomfort but his ECG did show some changes with ST depressions in the inferior leads. He is again complaining of some pressure-like feeling. He also has acid reflux and has been started on treatment after seeing Gastroenterology recently. I have advised him to do coronary CTA and he is agreeable. We will arrange this for him. Thank you for allowing me to participate in the care of your patient. Please feel free to contact me if you have any questions. Orders: Orders Basic Metabolic Panel Today R07.9 - Chest pain, unspecified CT Cardiac Coronary Angio Today R07.9 - Chest pain, unspecified Coding Level of Care Code Est Pt Level 4 (07358) Diagnoses Chest pain R07.9
== END 2024-01-13 14:07 | disposition home or self-care (01) ==
PROVIDERS: PCP Internal Medicine; Visit Provider Internal Medicine Cardiovascular Disease
DX: R07.9 Chest pain, unspecified (principal)
CPT/HCPCS: 99214

== ENCOUNTER → 2024-01-13 13:31 | Outpatient (BNVA) | payer OTHER, SELFPAY | PROVIDERS: PCP Internal Medicine; Visit Provider Internal Medicine Cardiovascular Disease | DX: I10 Essential (primary) hypertension (principal); R07.9 Chest pain, unspecified | CPT/HCPCS: 99212 ==

== ENCOUNTER 2024-01-21 13:00 | Outpatient (AMB) | payer OTHER, MEDICAID, SELFPAY ==
--- NOTE | 2024-01-21 13:20 | A.OFFVIS_ITS ---
Intake Visit Reasons: 6m follow up Intake Note: Patient is Present for PVR/ Urology Med: Terazosin Antibiotic Allergy:None Blood Thinner: Aspirin Last PVR: 45 Todays PVR: 87 Resource Center Teacher Required: Yes Resource Center Teacher Language: [place] Citizen Allergies No Known Allergies [No Known Allergies*] Allergy (Verified 01/21/24 13:27) Medication List - Last Reconciled 01/21/24 by Shahriar Lee MD albuterol sulfate 90 mcg/actuation 2 puffs PO Q4-6H PRN 30 days albuterol sulfate 2.5 mg (3 mL) inhalation Q4H PRN 30 days amitriptyline 1 tab PO BEDTIME amlodipine 1 tab PO QAM aspirin 1 tab PO QAM atorvastatin 1 tab PO BEDTIME dicyclomine 20 mg PO QID 30 days duloxetine 1 cap PO QAM finasteride 1 tab PO DAILY hqsedxzesuo-xtroyujsr-cziopwcz 200-62.5-25 mcg (Trelegy Ellipta) 1 inh inhalation DAILY 30 days ipratropium-albuterol 0.5 mg-3 mg(2.5 mg base)/3 mL 3 mL inhalation Q4H PRN lidocaine 5% (Lidoderm) 1 patch topical DAILY metformin ER 500 mg PO BID metoprolol tartrate 1 tab PO montelukast 10 mg PO BEDTIME nebulizers As directed omeprazole 40 mg PO BID sildenafil (Viagra) 1 tab PO DAILY PRN simethicone 180 mg PO QID 30 days terazosin 5 mg PO BEDTIME 90 days tramadol 50 mg PO TID PRN HPI Comments Details: Francisco J is [place] Citizen-speaking male. He is a patient of Dr. Brennan. He is seen for the following urologic conditions - lower urinary tract symptoms PVR 90 cc [place] Citizen translation performed by qualified medical imaging technologist Follow-up from urgency with postvoid dribbling On terazosin 5 mg Did not perform pelvic floor exercises But will continue terazosin Follow-up in 12 months Lower urinary tract symptoms Further evaluation of symptoms - urgency with postvoid dribbling - initial improvement with terazosin Current treatment terazosin 5 mg Has post terminal dribbling Cystoscopy 06/04 open bladder neck PFSH Medical History REJI (acute kidney injury) Urgency of micturition Urinary hesitancy Nocturia more than twice per night Benign prostatic hyperplasia with weak urinary stream Epidermal inclusion cyst Atelectasis Fecal incontinence Flank lipoma Asthma-COPD overlap syndrome IBS (irritable bowel syndrome) Umbilical hernia Diabetes Arthritis Back pain GERD (gastroesophageal reflux disease) Bipolar 1 disorder Anxiety Depression Elevated cholesterol Tension pneumothorax, spontaneous Hypertension Asthma Surgical History S/P excision of lipoma (02/20/23) History of excision of mass (12/13/22) Hx of colonoscopy Hx of tracheostomy History of lung surgery Hx of hernia repair Family History Mother Stomach cancer Brother Prostate cancer Brother Prostate cancer Social History Household Members: None Housing: Apartment Do you presently have visiting nurse or other home services: No Alcohol intake: current Alcohol intake frequency: a few times a month Alcohol type: beer Patient Tobacco Use Status: Never used Tobacco e-Cigarette/Vaping Use: Never Used Second Hand Smoke Exposure: No Substance Use Type: Marijuana Advance Directives Date on File: 03/28/21 service: No Current occupational status: unemployed Review of Systems Const Denies chills and Denies fever(s) Card Reports no additional complaints and Denies syncope Resp Denies cough GI Denies abdominal pain and Denies heartburn Reports as per HPI and Denies change in libido Neuro Denies syncope Psych Denies change in libido Endo Denies change in libido Physical Exam Const General: cooperative, healthy appearing, comfortable and no acute distress Orientation/consciousness: patient oriented x3 HEENT Face and sinus: Yes normal facial exam Mouth: moist mucous membranes Neck Neck: Yes normal visual inspection, Yes full ROM and Yes trachea midline Chest Chest palpation & inspection: normal inspection of the chest Resp Effort & Inspection: normal respiratory effort, able to speak in complete sentences and no respiratory distress GI Inspection: Yes normal to inspection Back/Spine/Pelvis Cervical Spine: normal cervical lordosis Thoracic/Lumbar Spine: thoracic and lumbar spine normal to inspection Skin General skin exam: no rashes or lesions noted Neuro General: patient oriented x3, gait normal, tone normal and moves all extremities Extrem General: Yes normal to inspection and Yes capillary refill normal Office Procedures Post Void Residual Post Residual Void Post Void Residual (PVR): 87 [id number] Void Residual by ultrasound Assessment & Plan Assessment & Plan (1) BPH loc w urin obs/LUTS: Code(s): N40.1 - Benign prostatic hyperplasia with lower urinary tract symptoms Category: Medical Plan Twelve month follow-up Orders: Orders AMB Post Void Residual by ultrasound Today N40.1 - Benign prostatic hyperplasia with lower urinary tract symptoms Prostate Specific Antigen 364 Days N40.1 - Benign prostatic hyperplasia with lower urinary tract symptoms Patient Instructions: Imaging studies, laboratory and physical exam results were discussed and reviewed in detail. No major barriers to patient understanding were identified. An opportunity to ask questions regarding the treatment plan was provided. All questions were answered. The patient expressed understanding and agreement with the above treatment plan. The patient is aware they should contact our office by phone for worsening of their current condition or the appearance of new urologic symptoms. Compliance is encouraged with any medications and followup testing that is ordered. It is a privilege to participate in the urologic care of your patient. If you have any questions or concerns regarding treatment for the above conditions, or other urologic issues, please do not hesitate to contact me. The office telephone contact is [phone]. This note is constructed using voice recognition software. While every effort has been made to ensure accuracy radiology transcriptionist errors may have been included. Yours sincerely, Dr Shahriar Lee MD, [facility] [place] - Urology Providers of Expert, Compassionate Care for the Genitourinary System Coding Level of Care Code Est Pt Level 3 (77337) Diagnoses BPH loc w urin obs/LUTS N40.1 CPT Codes Post Residual Void - PVR CPT Code: 71310-Rqdf Void Residual by ultrasound ([id number])
== END 2024-01-21 13:37 | disposition home or self-care (01) ==
PROVIDERS: PCP Internal Medicine; Visit Provider Urology
DX: N40.1 Benign prostatic hyperplasia with lower urinary tract symptoms (principal)
CPT/HCPCS: 99213

== ENCOUNTER → 2024-01-21 13:00 | Outpatient (BNVA) | payer OTHER, SELFPAY | PROVIDERS: PCP Internal Medicine; Visit Provider Urology | DX: N40.1 Benign prostatic hyperplasia with lower urinary tract symptoms (principal); N13.8 Other obstructive and reflux uropathy; Z79.899 Other long term (current) drug therapy | CPT/HCPCS: 51798; 99212 ==

== ENCOUNTER 2024-02-06 10:58 | Outpatient (AMB) | payer OTHER, SELFPAY ==
--- NOTE | 2024-02-06 11:02 | A.OFFVIS_ITS ---
Vital Signs 02/06/24 11:06 Height 5 ft 10 in Weight 173 lb 4.533 oz BMI 24.9 BP 116/72 Blood Pressure Location Rt brachial Position Sitting Pulse 64 Pulse Source Pulse Oximeter Pulse Oximetry (%) 96 Oxygen Delivery Method Room Air Intake Visit Reasons: 6 week follow up Intake Note: Francisco J presents in office today for a scheduled 6 week FUV. CC; Pt reports that they have been feeling well since their last visit. Pt denies any new complications or sx since their last visit. Pt confirms that they are taking all medications as instructed. Mechanical Drawing Teacher Required: Yes Mechanical Drawing Teacher Services: Mechanical Drawing Teacher Present Mechanical Drawing Teacher Name: Khoi [id number] Information Interpreted: non-clinical & clinical Accompanied by: Self / Same As Patient Allergies No Known Allergies [No Known Allergies*] Allergy (Verified 02/06/24 11:05) HPI HPI 6 week follow up: Details: Assessment & Plan (1) GERD (gastroesophageal reflux disease): Code(s): K21.9 - Gastro-esophageal reflux disease without esophagitis Category: Medical (2) IBS (irritable bowel syndrome): Code(s): K58.9 - Irritable bowel syndrome without diarrhea Category: Medical (3) Abdominal bloating: Code(s): R14.0 - Abdominal distension (gaseous) Category: Medical Plan This patient has been lost to follow-up since 2021. [place] # translate per patient request He is having a great deal of burping and HB and flatulence. 2022 CT = no gallstones. NO new meds, but not getting bid omeprazole from pcp or bentyl. Will add simethicone no CIC or diarrhea. I am going to restart the meds and see how he does before I order diagnostic tests. He has a bump in his mouth/cheek. No resolution w/ magic mouthwash. Looks bony to me just a bit of asymmetric and I recommend he consult with his dentist. No pain. This could be related to dental issues or simply it a developmental asymmetry that he only just recently noticed. ROV 6 weeks. Medications: New simethicone after meals 180 mg PO QID 120 caps 3RF 30 days Refilled omeprazole 40 mg PO BID 60 caps 6RF dicyclomine 20 mg PO QID 120 tabs 6RF 30 days K58.9 - Irritable bowel syndrome without diarrhea, R15.9 - Full incontinence of feces TODAY'S VISIT [place] #samara live He is now doing well with the addition of simethicone. He continues on his omeprazole and dicyclomine in his now quite happy with his GI regimen. Return office visit in 6 months. [facility] Medical History REJI (acute kidney injury) Urgency of micturition Urinary hesitancy Nocturia more than twice per night Benign prostatic hyperplasia with weak urinary stream Epidermal inclusion cyst Atelectasis Fecal incontinence Flank lipoma Asthma-COPD overlap syndrome IBS (irritable bowel syndrome) Umbilical hernia Diabetes Arthritis Back pain GERD (gastroesophageal reflux disease) Bipolar 1 disorder Anxiety Depression Elevated cholesterol Tension pneumothorax, spontaneous Hypertension Asthma Surgical History S/P excision of lipoma (02/20/23) History of excision of mass (12/13/22) Hx of colonoscopy Hx of tracheostomy History of lung surgery Hx of hernia repair Family History Mother Stomach cancer Brother Prostate cancer Brother Prostate cancer Social History Household Members: None Housing: Apartment Do you presently have visiting nurse or other home services: No Alcohol intake: current Alcohol intake frequency: a few times a month Alcohol type: beer Patient Tobacco Use Status: Never used Tobacco e-Cigarette/Vaping Use: Never Used Second Hand Smoke Exposure: No Substance Use Type: Marijuana Advance Directives Date on File: 03/28/21 service: No Current occupational status: unemployed Review of Systems Const Denies fatigue, Denies fever(s), Denies night sweats, Denies poor appetite and Denies weight loss ENT Reports Normal hearing present, Denies dental pain, Denies dysphagia, Denies hearing loss, Denies mouth pain, Denies odynophagia, Denies throat swelling, Denies tongue swelling and Reports other (Dentition adequate) Card Reports no additional complaints Resp Reports no additional complaints GI Details: Denies abdominal pain, Denies melena, Reports bloating, Denies hematochezia, Denies constipation, Reports GI cramping, Denies dysphagia, Denies excessive flatus, Denies early satiety, Reports heartburn, Denies diarrhea, Denies nausea, Denies odynophagia, Denies vomiting and Denies hematemesis Skin/Breast Denies pruritus, Denies lesions, Denies rash and Denies jaundice Neuro Reports Normal hearing present and Denies Abnormal speech present Endo Denies fatigue Aller/Immun Denies throat swelling and Denies tongue swelling Physical Exam Vital Signs: Last Vital Signs Pulse 64 02/06/24 11:06 BP 116/72 02/06/24 11:06 Pulse Ox 96 02/06/24 11:06 Oxygen Delivery Method Room Air 02/06/24 11:06 BMI result Body Mass Index 24.9 Const General: cooperative, no acute distress, well developed and well groomed Nutritional Appearance: average body habitus and well nourished Orientation/consciousness: oriented to person, oriented to place and oriented to time Limitations: language barrier HEENT Head: Yes normocephalic and Yes atraumatic Eyes General: appearance normal, both eyes and all related structures Pupils: Equal, round and reactive pupils present Neck Neck: Yes normal visual inspection and Yes no lymphadenopathy Thyroid: Thyroid normal Resp Effort & Inspection: normal respiratory effort and able to speak in complete sentences Auscultation: clear to auscultation bilaterally Cardio Rate: regular rate Rhythm: regular rhythm Heart sounds: Normal, physiologic split S2 sound present Peripheral pulses: radial pulses present and posterior tibial pulses present GI Inspection: No distended and No Abdominal panniculus present Palpation (GI): Soft to palpation, nontender, no guarding, not rigid and No hepatosplenomegaly present Percussion: Yes normal to percussion Auscultation: normal bowel sounds Rectal Exam - Male: Yes deferred Skin General skin exam: no rashes or lesions noted, turgor normal, skin not dry, no jaundice, No spider nevi and no striae Rashes: no rashes Nails: normal Neuro General: oriented to person, oriented to place and oriented to time Cranial nerves: Yes Equal, round and reactive pupils present and Yes Normal hearing present Speech: No Abnormal speech present Extrem General: Yes normal to inspection, No clubbing, No cyanosis and No edema Psych Appearance: grossly normal and well kempt Mental Status: mental status grossly normal Speech and movement: Normal speech and movement present Affect: normal affect Attitude: cooperative Thought process: Normal thought process present and not confabulating Thought content: Normal thought content present Insight: Fair insight present (Psych) and Limited insight present (Psych) Judgement: Fair judgement present (Psych) and Limited judgement present (Psych) Assessment & Plan Assessment & Plan (1) GERD (gastroesophageal reflux disease): Code(s): K21.9 - Gastro-esophageal reflux disease without esophagitis Category: Medical (2) IBS (irritable bowel syndrome): Code(s): K58.9 - Irritable bowel syndrome without diarrhea Category: Medical (3) Abdominal bloating: Code(s): R14.0 - Abdominal distension (gaseous) Category: Medical Plan [place] #samara live He is now doing well with the addition of simethicone. He continues on his omeprazole and dicyclomine in his now quite happy with his GI regimen. Return office visit in 6 months. Medications: Refilled simethicone after meals 180 mg PO QID 120 caps 6RF 30 days Coding Level of Care Code Est Pt Level 3 (77505) Diagnoses GERD (gastroesophageal reflux disease) K21.9 IBS (irritable bowel syndrome) K58.9 Abdominal bloating R14.0
[2024-02-06 11:06] VITALS: BP 116/72; PULSE 64; O2SAT 96; BMI 24.9
== END 2024-02-06 11:19 | disposition home or self-care (01) ==
PROVIDERS: Visit Provider Nurse Practitioner
DX: K21.9 Gastro-esophageal reflux disease without esophagitis (principal); K58.9 Irritable bowel syndrome, unspecified; R14.0 Abdominal distension (gaseous)
CPT/HCPCS: 99213

== ENCOUNTER → 2024-02-06 10:58 | Outpatient (BNVA) | payer OTHER, SELFPAY | PROVIDERS: Visit Provider Nurse Practitioner | DX: K21.9 Gastro-esophageal reflux disease without esophagitis (principal); K58.9 Irritable bowel syndrome, unspecified; R14.0 Abdominal distension (gaseous) | CPT/HCPCS: 99212 ==

== ENCOUNTER 2024-02-21 12:57 | Outpatient (AMB) | payer OTHER, SELFPAY ==
[2024-02-21 13:05] VITALS: PULSE 75; O2SAT 95; BMI 25.1
--- NOTE | 2024-02-21 13:05 | A.OFFVIS_ITS ---
Vital Signs 02/21/24 13:05 Height 5 ft 10 in Weight 175 lb BMI 25.1 Pulse 75 Pulse Source Pulse Oximeter Pulse Oximetry (%) 95 Oxygen Delivery Method Room Air Intake Visit Reasons: jaciel Supervisor Receiving And Processing Required: No Allergies No Known Allergies [No Known Allergies*] Allergy (Verified 02/21/24 13:06) HPI Comments Details: The patient is a 63-year-old gentleman known history of asthma and COPD overlap syndrome. He does not smoke cigarettes although he smokes marijuana. The patient has been having worsening respiratory symptoms. He has had multiple physicians hoping with his respiratory issues. Now she he is having issues with his neck. He is going to need surgery and that is coming up sometime in the end of November. Will going to try to help improve his respiratory capacity by optimizing his respiratory medications. In the meantime he understands that he smoking this is also been him there is response to therapy. Therefore he needs to work on avoiding any kind of smoking altogether and should continue to optimize respiratory therapy with medications provided. He will need undergo pulmonary function studies. Once I have those PFTs I can do a an addendum in or serena to complete a preoperative evaluation for him for surgery. The patient does have significant wheezing on examination. Will go ahead and optimize his respiratory therapy but given some prednisone and he does need to take it if he has not responded to the therapy or if he gets worse. We also looked at a CT scan of the chest that he had back in 2020. He has evidence of interstitial lung changes. Will continue to monitor of any progression of underlying interstitial lung disease. Right now on the last CT scan appears to be more chronic than acute. 08/16/2023 the patient is here for a pulmonary follow-up visit. He has been complaining of worsening cough and chest tightness now for the last 3 days. Denies any fevers or chills. Denies being exposed to COVID. He has been using his nebulizer on a regular basis. This has been partially helpful. Does have significant wheezing on examination. The patient does require prednisone at this time. prior to the flare-up the patient had been doing well on the current respiratory regimen. again, we did review his PFTs from November 2022 demonstrating severe COPD. In addition to that the patient had a chest x-ray from June 2023 demonstrating no acute disease. 02/21/2024 the patient is here for pulmonary follow-up visit. Overall he is doing about the same. Still complaining of cough. Moderate severity. Nonproductive in nature. He also has some chest discomfort primarily in the right side. he has been on the inhalers. The provide some minimal improvement. In the meantime he did have a chest x-ray which we personally reviewed. Does have some abnormal findings primarily on the right hemithorax suggesting of pneumonia. will go ahead and request a CT scan of the chest to assess the abnormality better. Specially to assess for foreign bodies or any type of postobstructive process that would warrant a bronchoscopy. The patient also had a barium swallow demonstrating some penetration of the barium into the larynx although no overt aspiration noted. We did talk about dysphagia diet and making sure that he is careful when he is eating. He will continue with current respiratory therapy will follow-up after the CAT scan. [facility] Medical History (Updated 02/23/24 @ 23:01 by Shane Meyer MD) New abnormality on chest x-ray REJI (acute kidney injury) Urgency of micturition Urinary hesitancy Nocturia more than twice per night Benign prostatic hyperplasia with weak urinary stream Epidermal inclusion cyst Atelectasis Fecal incontinence Flank lipoma Asthma-COPD overlap syndrome IBS (irritable bowel syndrome) Umbilical hernia Diabetes Arthritis Back pain GERD (gastroesophageal reflux disease) Bipolar 1 disorder Anxiety Depression Elevated cholesterol Tension pneumothorax, spontaneous Hypertension Asthma Surgical History S/P excision of lipoma (02/20/23) History of excision of mass (12/13/22) Hx of colonoscopy Hx of tracheostomy History of lung surgery Hx of hernia repair Family History Mother Stomach cancer Brother Prostate cancer Brother Prostate cancer Social History Household Members: None Housing: Apartment Do you presently have visiting nurse or other home services: No Alcohol intake: current Alcohol intake frequency: a few times a month Alcohol type: beer Patient Tobacco Use Status: Never used Tobacco e-Cigarette/Vaping Use: Never Used Second Hand Smoke Exposure: No Substance Use Type: Marijuana Advance Directives Date on File: 03/28/21 service: No Current occupational status: unemployed Review of Systems Const Denies fever(s) Eyes Denies change in vision ENT Denies change in voice and Reports nasal congestion Card Denies chest pain and Reports dyspnea on exertion Resp Reports chest congestion, Reports cough, Reports dyspnea on exertion and Reports wheezing GI Reports no additional complaints Musc Reports myalgias Skin/Breast Denies rash Neuro Reports no additional complaints Endo Reports no additional complaints Yusef/Lymph Denies lymphadenopathy Aller/Immun Reports wheezing Physical Exam Vital Signs: Last Vital Signs Pulse 75 02/21/24 13:05 Pulse Ox 95 02/21/24 13:05 Oxygen Delivery Method Room Air 02/21/24 13:05 BMI result Body Mass Index 25.1 Const General: comfortable HEENT Head: Yes normocephalic Neck Neck: Yes supple Chest Chest palpation & inspection: normal inspection of the chest Resp Effort & Inspection: normal respiratory effort and able to speak in complete sentences Auscultation: rhonchi, wheezes and diminished lung sounds Cardio Rate: regular rate Rhythm: regular rhythm Heart sounds: S1 normal heart sound present and S2 normal heart sound present GI Palpation (GI): Soft to palpation Skin General skin exam: no rashes or lesions noted Extrem General: Yes clubbing and Yes cyanosis Results Reviewed Results Reviewed: [address] [place] [address] XRay Report Signed Patient: Francisco J Romeo MR#: [id number] : 1960 Acct:[id number] Age/Sex: 63 / M ADM Date: 10/14/23 Loc: .ED Attending Dr: Ordering Physician: Generic ED Physician Date of Service: 10/14/23 Procedure(s): XR chest 2V Accession Number(s): [id number] cc: Generic ED Physician; Physician,Unknown ~ EXAMINATION: XR CHEST CLINICAL INFORMATION: Chest pain. COMPARISON: Chest radiograph 06/23/2023. TECHNIQUE: 2 views of the chest were obtained. FINDINGS: Chronic multifocal scarring and architectural distortion. Suggestion of mildly increased focal hazy opacities in the right infrahilar region. No pleural effusion or pneumothorax. Chronic multifocal subpleural thickening. Unchanged cardiomediastinal silhouette. No acute osseous findings. Thoracic spondylosis. XR/XR chest 2V IMPRESSION: 1. Mildly increased focal hazy opacities in the right infrahilar region which could be related with aspiration or developing infiltrates. 2. Chronic multifocal scarring and architectural distortion. Dictated By: Shayna Rios Signed By: <Electronically signed by Shayna Rios in [place]> 10/14/232351 DD/ 34 TD/TT: Manager Plant: [place] [id number] XRay Report Signed Patient: Francisco J Romeo MR#: [id number] : 1960 Acct:[id number] Age/Sex: 63 / M ADM Date: 10/14/23 Loc: HO.ED Attending Dr: Ordering Physician: Generic ED Physician Date of Service: 10/14/23 Procedure(s): XR chest 2V Accession Number(s): [id number] cc: Generic ED Physician; Physician,Unknown ~ EXAMINATION: XR CHEST CLINICAL INFORMATION: Chest pain. COMPARISON: Chest radiograph 06/23/2023. TECHNIQUE: 2 views of the chest were obtained. FINDINGS: Chronic multifocal scarring and architectural distortion. Suggestion of mildly increased focal hazy opacities in the right infrahilar region. No pleural effusion or pneumothorax. Chronic multifocal subpleural thickening. Unchanged cardiomediastinal silhouette. No acute osseous findings. Thoracic spondylosis. XR/XR chest 2V IMPRESSION: 1. Mildly increased focal hazy opacities in the right infrahilar region which could be related with aspiration or developing infiltrates. 2. Chronic multifocal scarring and architectural distortion. Dictated By: Shayna Rios Signed By: <Electronically signed by Shayna Rios in [place]> 10/14/232351 DD/ TD/TT: Manager Plant: Assessment & Plan Assessment & Plan (1) Asthma-COPD overlap syndrome: Code(s): J44.9 - Chronic obstructive pulmonary disease, unspecified Category: Medical (2) Atelectasis: Code(s): J98.11 - Atelectasis Category: Medical (3) Chest pain: Code(s): R07.9 - Chest pain, unspecified Category: Medical Qualifiers: Chest pain type: unspecified Qualified Code(s): R07.9 - Chest pain, unspecified (4) New abnormality on chest x-ray: Code(s): R93.89 - Abnormal findings on diagnostic imaging of other specified body structures Category: Medical Plan continue Trelegy 200 OK as needed continue singulair CT chest to address abnormal CXR and persistent chest discomfort F/U 2-3 months Orders: Orders CT chest wo IV con 02/21/24 R07.9 - Chest pain, unspecified, R93.89 - Abnormal findings on diagnostic imaging of other specified body structures Coding Level of Care Code Est Pt Level 4 (26509) Diagnoses Asthma-COPD overlap syndrome J44.9 Atelectasis J98.11 Chest pain, unspecified type R07.9 Chest pain type: unspecified New abnormality on chest x-ray R93.89 Time Spent (min) 17
== END 2024-02-21 13:22 | disposition home or self-care (01) ==
PROVIDERS: PCP Internal Medicine; Visit Provider Hospitalist
DX: J44.9 Chronic obstructive pulmonary disease, unspecified (principal); J98.11 Atelectasis; R07.9 Chest pain, unspecified; R93.89 Abnormal findings on diagnostic imaging of other specified body structures
CPT/HCPCS: 99214

== ENCOUNTER → 2024-02-21 12:57 | Outpatient (BNVA) | payer OTHER, SELFPAY | PROVIDERS: PCP Internal Medicine; Visit Provider Hospitalist | DX: J43.9 Emphysema, unspecified (principal); J98.11 Atelectasis; F12.90 Cannabis use, unspecified, uncomplicated; R07.9 Chest pain, unspecified; R93.89 Abnormal findings on diagnostic imaging of other specified body structures | CPT/HCPCS: 99212 ==

== ENCOUNTER 2024-03-11 10:58 | Outpatient (REF) | payer OTHER, SELFPAY ==
[2024-03-11 12:26] LABS: Anion Gap 15 (12-20); Blood Urea Nitrogen 23 mg/dL (9-16); Calcium 9.8 mg/dL (8.4-10.2); Carbon Dioxide 24 mmol/L (22-29); Chloride 106 mmol/L (96-108); Estimated Glomerular Filt Rate > 60; Glucose Random 110 mg/dL (60-115); Sodium 141 mmol/L (135-145)
== END 2024-03-11 10:59 | disposition home or self-care (01) ==
LOC: HO.LAB 10:58
PROVIDERS: Internal Medicine Cardiovascular Disease; PCP Internal Medicine; Visit Provider Urology
DX: R07.9 Chest pain, unspecified (principal)
CPT/HCPCS: 36415; 80048

== ENCOUNTER 2024-05-06 13:00 | Outpatient (AMB) | payer OTHER, SELFPAY ==
[2024-05-06 13:11] VITALS: BP 111/76; PULSE 86; BMI 23.8
--- NOTE | 2024-05-06 13:11 | A.OFFVIS_ITS ---
Vital Signs 05/06/24 13:11 Height 5 ft 10 in Weight 166 lb 3.657 oz BMI 23.8 BP 111/76 Blood Pressure Location Lt brachial Position Sitting Pulse 86 Intake Visit Reasons: Gerd, IBS Intake Note: Patient in office today in follow up of GERD and IBS. CC: Patient reports doing better on Simethicone and denies any new GI concerns today. 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 He continues on his omeprazole and dicyclomine in his now quite happy with his GI regimen. Return office visit in 6 months. Medications: Refilled simethicone after meals 180 mg PO QID 120 caps 6RF 30 days CXR 10/14/23 MPRESSION: 1. Mildly increased focal hazy opacities in the right infrahilar region which could be related with aspiration or developing infiltrates. 2. Chronic multifocal scarring and architectural distortion. TODAY'S VISIT [place] Junior Denys The patient is due for recall colonoscopy in 2025 we need to discuss this at his late 2024 visit. He did receive simethicone and this is helpful for his bloating. Despite adherence to o2o bid, he still has severe GERD every day. 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 He has a hx of tracheostomy s/p trauma and he has mild dysphagia in the upper esophageal area. Also, CXR 10/2023 showing possible question of aspiration. He is agreeable to EGD. Changing omeprazole to aciphex or other agent depending on insurance step therapy. ROV 6 weeks. PFSH Medical History New abnormality on chest x-ray REJI (acute kidney injury) Urgency of micturition Urinary hesitancy Nocturia more than twice per night Benign prostatic hyperplasia with weak urinary stream Epidermal inclusion cyst Atelectasis Fecal incontinence Flank lipoma Asthma-COPD overlap syndrome IBS (irritable bowel syndrome) Umbilical hernia Diabetes Arthritis Back pain GERD (gastroesophageal reflux disease) Bipolar 1 disorder Anxiety Depression Elevated cholesterol Tension pneumothorax, spontaneous Hypertension Asthma Surgical History S/P excision of lipoma (02/20/23) History of excision of mass (12/13/22) Hx of colonoscopy Hx of tracheostomy History of lung surgery Hx of hernia repair Family History Mother Stomach cancer Brother Prostate cancer Brother Prostate cancer Social History Household Members: None Housing: Apartment Do you presently have visiting nurse or other home services: No Alcohol intake: current Alcohol intake frequency: a few times a month Alcohol type: beer Patient Tobacco Use Status: Never used Tobacco e-Cigarette/Vaping Use: Never Used Second Hand Smoke Exposure: No Substance Use Type: Marijuana Advance Directives Date on File: 03/28/21 service: No Current occupational status: unemployed Review of Systems Const Denies fatigue, Denies fever(s), Denies night sweats, Denies poor appetite and Denies weight loss ENT Reports Normal hearing present, Denies dental pain, Reports dysphagia, Denies hearing loss, Denies mouth pain, Denies odynophagia, Denies throat swelling, Denies tongue swelling and Reports other (Dentition adequate) Card Reports no additional complaints Resp Reports no additional complaints GI Details: Reports abdominal pain, Denies melena, Reports bloating, Denies hematochezia, Denies constipation, Denies GI cramping, Reports dysphagia, Denies excessive flatus, Denies early satiety, Reports heartburn, Denies diarrhea, Denies nausea, Denies odynophagia, Denies vomiting and Denies hematemesis Skin/Breast Denies pruritus, Denies lesions, Denies rash and Denies jaundice Neuro Reports Normal hearing present and Denies Abnormal speech present Endo Denies fatigue Aller/Immun Denies throat swelling and Denies tongue swelling Physical Exam Vital Signs: Last Vital Signs Pulse 86 05/06/24 13:11 BP 111/76 05/06/24 13:11 BMI result Body Mass Index 23.8 Const General: cooperative, no acute distress, well developed and well groomed Nutritional Appearance: average body habitus and well nourished Orientation/consciousness: oriented to person, oriented to place and oriented to time Limitations: language barrier HEENT Head: Yes normocephalic and Yes atraumatic Eyes General: appearance normal, both eyes and all related structures Pupils: Equal, round and reactive pupils present Neck Neck: Yes normal visual inspection and Yes no lymphadenopathy Thyroid: Thyroid normal Resp Effort & Inspection: normal respiratory effort and able to speak in complete sentences Auscultation: clear to auscultation bilaterally Cardio Rate: regular rate Rhythm: regular rhythm Heart sounds: Normal, physiologic split S2 sound present Peripheral pulses: radial pulses present and posterior tibial pulses present GI Inspection: No distended and No Abdominal panniculus present Palpation (GI): Soft to palpation, nontender, no guarding, not rigid and No hepatosplenomegaly present Percussion: Yes normal to percussion Auscultation: normal bowel sounds Rectal Exam - Male: Yes deferred Skin General skin exam: no rashes or lesions noted, turgor normal, skin not dry, no jaundice, No spider nevi and no striae Rashes: no rashes Nails: normal Neuro General: oriented to person, oriented to place and oriented to time Cranial nerves: Yes Equal, round and reactive pupils present and Yes Normal hearing present Speech: No Abnormal speech present Extrem General: Yes normal to inspection, No clubbing, No cyanosis and No edema Psych Appearance: grossly normal and well kempt Mental Status: mental status grossly normal Speech and movement: Normal speech and movement present Affect: normal affect Attitude: cooperative Thought process: Circumstantial thought process present and not confabulating Thought content: Normal thought content present Insight: Fair insight present (Psych) Judgement: Fair judgement present (Psych) Assessment & Plan Assessment & Plan (1) GERD (gastroesophageal reflux disease): Code(s): K21.9 - Gastro-esophageal reflux disease without esophagitis Category: Medical (2) Abdominal bloating: Code(s): R14.0 - Abdominal distension (gaseous) Category: Medical (3) IBS (irritable bowel syndrome): Code(s): K58.9 - Irritable bowel syndrome, unspecified Category: Medical (4) Tubular adenoma of colon: Comment: [address] Sims, 2020 SESSILE POLYP REPEAT 5 YEARS Code(s): D12.6 - Benign neoplasm of colon, unspecified Category: Medical Plan [place] #Dave Live The patient is due for recall colonoscopy in 2025 we need to discuss this at his late 2024 visit. He did receive simethicone and this is helpful for his bloating. Despite adherence to o2o bid, he still has severe GERD every day. 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 He has a hx of tracheostomy s/p trauma and he has mild dysphagia in the upper esophageal area. Also, CXR 10/2023 showing possible question of aspiration. He is agreeable to EGD. Changing omeprazole to aciphex or other agent depending on insurance step therapy. ROV 6 weeks. Orders: Orders EGD - GI Use Only 05/06/24 K21.9 - Gastro-esophageal reflux disease without esophagitis Medications: New rabeprazole (AcipHex) 20 mg PO BID 60 tabs 6RF K21.9 - Gastro-esophageal reflux disease without esophagitis Refilled dicyclomine 20 mg PO QID 120 tabs 6RF 30 days K58.9 - Irritable bowel syndrome, unspecified, R15.9 - Full incontinence of feces simethicone after meals 180 mg PO QID 120 caps 6RF 30 days Coding Level of Care Code Est Pt Level 4 (15565) Diagnoses GERD (gastroesophageal reflux disease) K21.9 Abdominal bloating R14.0 IBS (irritable bowel syndrome) K58.9 Tubular adenoma of colon D12.6 Time Spent (min) 33
== END 2024-05-06 13:42 | disposition home or self-care (01) ==
PROVIDERS: Visit Provider Nurse Practitioner
DX: K21.9 Gastro-esophageal reflux disease without esophagitis (principal); R14.0 Abdominal distension (gaseous); K58.9 Irritable bowel syndrome, unspecified; D12.6 Benign neoplasm of colon, unspecified
CPT/HCPCS: 99214

== ENCOUNTER 2024-05-06 13:00 | Outpatient (REF) | payer OTHER, SELFPAY ==
[2024-05-06 15:35] LABS: Anion Gap 12 (12-20); Blood Urea Nitrogen 26 mg/dL (9-16); Calcium 10.2 mg/dL (8.4-10.2); Carbon Dioxide 26 mmol/L (22-29); Chloride 108 mmol/L (96-108); Estimated Glomerular Filt Rate > 60; Glucose Random 122 mg/dL (60-115); Potassium 3.9 mmol/L (3.3-5.1); Sodium 142 mmol/L (135-145)
== END 2024-05-06 13:01 | disposition home or self-care (01) ==
LOC: HO.LAB 13:00
PROVIDERS: Absent Provider Internal Medicine Cardiovascular Disease; PCP Internal Medicine; Visit Provider Nurse Practitioner
DX: K21.9 Gastro-esophageal reflux disease without esophagitis (principal); K58.9 Irritable bowel syndrome, unspecified; R15.9 Full incontinence of feces; R14.0 Abdominal distension (gaseous); D12.6 Benign neoplasm of colon, unspecified; R07.9 Chest pain, unspecified
CPT/HCPCS: 36415; 80048; 99212

== ENCOUNTER → 2024-05-18 23:07 | Outpatient (BNV) | payer OTHER, SELFPAY | PROVIDERS: Emergency Provider Emergency Medicine; PCP Internal Medicine; Visit Provider Internal Medicine Cardiovascular Disease | DX: R07.9 Chest pain, unspecified (principal) | CPT/HCPCS: 93010 ==

== ENCOUNTER 2024-05-18 23:09 | Emergency (ER) | payer OTHER, SELFPAY ==
--- NOTE | 2024-05-18 | ECG_ITS ---
Test Reason : CP Blood Pressure : / mmHG Vent. Rate : 084 BPM Atrial Rate : 084 BPM P-R Int : 146 ms QRS Dur : 098 ms QT Int : 372 ms P-R-T Axes : 057 024 046 degrees QTc Int : 439 ms Normal sinus rhythm Normal ECG When compared with ECG of 14-OCT-2023 23:22, No significant change was found Referred By: Generic ED Physician Electronically Signed By:KENDALL LUCERO MD
--- NOTE | ~2024-05-18 | XR_ITS ---
EXAMINATION: XR CHEST CLINICAL INFORMATION: Chest pain. Dyspnea. COMPARISON: October 14, 2023 TECHNIQUE: Frontal view of the chest was obtained. FINDINGS: The cardiomediastinal silhouette is stable. There is lower lung field scarring similar to previous. There is no focal lung consolidation or pleural effusions. The bony structures and the soft tissues are unremarkable. XR/XR chest 1V IMPRESSION: No acute cardiopulmonary disease. Electronically signed by: Grady Aguilar MD 05/19/2024 12:30 AM RIA
[2024-05-18 23:16] VITALS: BP 140/86; PULSE 87; RESP 18; TEMP 36.7; O2SAT 96; BMI 23.7
[2024-05-18 23:36] LABS: Basophils Percent Auto 0.4 % (0-2); Eosinophils Absolute Auto 0.2 X10*3/uL (0.0-0.4); Eosinophils Percent Auto 1.7 % (0-4); Hematocrit 39.3 % (42.0-52.0); Hemoglobin 13.7 g/dl (14.0-18.0); Imm Gran Abs Auto 0.03 X10*3/uL (0.00-0.03); Imm Gran Pct Auto 0.3 % (0.0-0.4); Lymphocytes Absolute Auto 2.3 X10*3/uL (1.2-4.9); Lymphocytes Percent Auto 24.2 % (20-40); MANUAL DIFF FLAG NO; Mean Corpuscular HGB Conc 34.9 g/dl (31.0-36.0); Mean Corpuscular Hemoglobin 30.3 pg (27.0-33.0); Mean Corpuscular Volume 86.9 fL (80.0-98.0); Mean Platelet Volume 9.6 fL (9.4-12.4); Monocytes Absolute Auto 1.3 X10*3/uL (0.1-1.2); Neutrophils Absolute Auto 5.6 x10*3/uL (2.0-8.3); Neutrophils Percent Auto 59.4 % (45-73); Platelet Count 256 X10*3/uL (160-400); Red Blood Count 4.52 X10*6/uL (4.60-5.80); Red Cell Distribution Width 12.5 % (11.0-16.0); White Blood Count 9.5 X10*3/uL (4.8-10.8)
[2024-05-18 23:52] LABS: Alanine Aminotransferase 26 U/L (0-40); Albumin Level 4.5 g/dL (3.5-5.0); Alkaline Phosphatase 88 U/L (39-117); Anion Gap 13 (12-20); Aspartate Amino Transferase 22 U/L (5-37); Bilirubin Total 0.4 mg/dL (0.0-1.0); Blood Urea Nitrogen 32 mg/dL (9-16); Calcium 9.8 mg/dL (8.4-10.2); Carbon Dioxide 22 mmol/L (22-29); Chloride 109 mmol/L (96-108); Creatinine Clr Calc Pharmacy 62.5; Estimated Glomerular Filt Rate > 60; Glucose Random 126 mg/dL (60-115); Lipase 14 U/L (8-78); Sodium 140 mmol/L (135-145); Total Protein 7.6 g/dL (6.5-8.0)
[2024-05-18 23:58] LABS: Troponin-I High Sensitivity < 2.7 ng/L (<3.5-35.0)
--- NOTE | 2024-05-19 01:26 | PC.NURSE ---
Pt ambulatory to RM 22 from waiting room , assumed care of pt at this time. Changing into hospital attire, awaiting primary provider eval.
[2024-05-19 01:37] VITALS: BP 131/72; PULSE 75; RESP 16; TEMP 36.6; O2SAT 96
--- NOTE | 2024-05-19 01:40 | PC.NURSE ---
panel monitor applied, NSR on monitor, VSS. Pt endorsing left sided chest pain radiating across lower diaphragm beginning last night constant and sharp in nature. Associated SOB, pain worse when lying flat and on inspiration. Skin pwd respirations even unlabored. Labs results, awaiting provider eval.
[2024-05-19 03:08] VITALS: BP 112/69; PULSE 87; RESP 16; O2SAT 96
--- NOTE | 2024-05-19 03:39 | ED_ITS ---
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 García HPI narrative: 64-year-old male came in for evaluation of left-sided chest pain with occasional radiation to the right upper abdominal area, no clear aggravating or relieving factor, pain is not exertional can happen during rest, no shortness of breath, no coughing, no fever, no chills. No lower extremity swelling or tenderness, no recent travel, no trauma to the chest wall. Related Data Home Medications ?Medication ?Instructions ?Recorded ?Confirmed amitriptyline 100 mg tablet 1 tab PO BEDTIME 07/25/20 01/21/24 aspirin 81 mg tablet,delayed 1 tab PO QAM 07/25/20 01/21/24 release atorvastatin 40 mg tablet 1 tab PO BEDTIME 07/25/20 01/21/24 sildenafil 100 mg tablet (Viagra) 1 tab PO DAILY PRN Erectile 07/25/20 01/21/24 Dysfunction duloxetine 60 mg capsule,delayed 1 cap PO QAM 03/28/21 01/21/24 release finasteride 5 mg tablet 1 tab PO DAILY 07/08/21 01/21/24 amlodipine 10 mg tablet 1 tab PO QAM 09/08/21 01/21/24 metoprolol tartrate 50 mg tablet 1 tab PO 09/08/21 01/21/24 nebulizers 10/26/22 01/21/24 tramadol 50 mg tablet 50 mg PO TID PRN 08/16/23 01/21/24 metformin 500 mg tablet,extended 500 mg PO BID 12/24/23 01/21/24 release 24 hr blood sugar diagnostic (FreeStyle #10 ea 02/06/24 Lite Strips) lancets 33 gauge (TRUEplus Lancets) #100 ea 02/06/24 ramelteon 8 mg tablet 8 mg PO DAILY 02/21/24 gabapentin 300 mg capsule mg PO 05/06/24 Previous Rx's ?Medication ?Instructions ?Recorded ipratropium 0.5 mg-albuterol 3 mg 3 ml inhalation Q4H PRN shortness 06/28/22 (2.5 mg base)/3 mL nebulization of breath or wheezing #90 mL soln lidocaine 5 % topical patch 1 patch topical DAILY #15 ea 08/25/22 (Lidoderm) albuterol sulfate 2.5 mg/3 mL 2.5 mg (3 mL) inhalation Q4H PRN 12/04/23 (0.083 %) solution for nebulization shortness of breath or wheezing 30 days #360 mL fluticasone fur. 200 mcg-umeclid 1 inh inhalation DAILY 30 days #60 12/04/23 62.5 mcg-vilant 25 mcg ea inhalat.powder (Trelegy Ellipta) montelukast 10 mg tablet 10 mg PO BEDTIME #30 tabs 01/20/24 terazosin 5 mg capsule 5 mg PO BEDTIME 90 days #90 caps 01/21/24 dicyclomine 20 mg tablet 20 mg PO QID 30 days #120 tabs 05/06/24 rabeprazole 20 mg tablet,delayed 20 mg PO BID #60 tabs 05/06/24 release (AcipHex) simethicone 180 mg capsule 180 mg PO QID 30 days #120 caps 05/06/24 albuterol sulfate 90 mcg/actuation 2 puff PO Q4-6H PRN Shortness Of 05/11/24 aerosol inhaler Breath Or Wheezing 30 days #8.5 grams Allergies Allergy/AdvReac Type Severity Reaction Status Date / Time No Known Allergies Allergy Verified 05/18/24 23:19 [No Known Allergies*] Review of Systems 2 Review of Systems: All other systems are reviewed and are negative Constitutional: Reports as per HPI and Reports no additional constitutional complaints Eyes: Reports as per HPI and Reports no additional eye complaints Reports system reviewed and no additional complaints, except as documented Cardiovascular: Reports as per HPI and Reports no additional cardiovascular complaints Respiratory: Reports as per HPI and Reports no additional respiratory complaints Gastrointestinal: Reports as per HPI and Reports no additional gastrointestinal complaints Genitourinary: Reports no additional female genitourinary complaints Musculoskeletal: Reports no additional musculoskeletal complaints Skin/Breast: Reports system reviewed and no additional complaints, except as docu Psychiatric: Reports no additional psychiatric complaints Endocrine: Reports no additional endocrine complaints Hematologic/Lymphatic: Reports no additional hematologic/lymphatic complaints Allergic/Immunologic: Reports no additional allergic/immunologic complaints Reports system reviewed and no additional complaints, except as documented and Reports Abnormal speech present FOR[facility]LY [facility] Past Medical History Medical History New abnormality on chest x-ray REJI (acute kidney injury) Urgency of micturition Urinary hesitancy Nocturia more than twice per night Benign prostatic hyperplasia with weak urinary stream Epidermal inclusion cyst Atelectasis Fecal incontinence Flank lipoma Asthma-COPD overlap syndrome IBS (irritable bowel syndrome) Umbilical hernia Diabetes Arthritis Back pain GERD (gastroesophageal reflux disease) Bipolar 1 disorder Anxiety Depression Elevated cholesterol Tension pneumothorax, spontaneous Hypertension Asthma Surgical History S/P excision of lipoma (02/20/23) History of excision of mass (12/13/22) Hx of colonoscopy Hx of tracheostomy History of lung surgery Hx of hernia repair Family History Family History Mother Stomach cancer Brother Prostate cancer Brother Prostate cancer Social History Social History Household Members: None Housing: Apartment Do you presently have visiting nurse or other home services: No Alcohol intake: current Alcohol intake frequency: a few times a month Alcohol type: beer Patient Tobacco Use Status: Never used Tobacco Smoked in Last 30 Days: No e-Cigarette/Vaping Use: Never Used Second Hand Smoke Exposure: No Use of substances other than those prescribed or required for medical reasons: Yes Substance Use Type: Marijuana Advance Directives: No Advance Directives Information Provided: No Advance Directives Date on File: 03/28/21 Do you have a plan to hurt others: No Plan service: No Current occupational status: unemployed Physical Exam 2 Vital Signs: Vital Signs: Last Vital Signs Temp 97.9 F 05/19/24 01:37 Pulse 87 05/19/24 03:08 Resp 16 05/19/24 03:08 BP 112/69 05/19/24 03:08 Pulse Ox 96 05/19/24 03:08 O2 Del Method Room Air 05/19/24 03:08 BMI result Body Mass Index 23.7 Vital signs have been reviewed and appear to be correct. Blood pressure elevated. Heart rate normal. Respiratory rate normal. Temperature normal. Oxygen saturation normal. Appearance: Alert. Oriented X3. No acute distress. Head: Normal external exam. Normocephalic. Atraumatic. No Mckeon signs noted. No raccoon eyes noted Eyes: PERRLA. EOMI. Conjunctiva and sclera normal. Eyelids normal. ENT: TM's Normal. Pharynx normal. Uvula midline. Moist mucous membranes. No trismus noted. No drooling noted. No muffled voice noted. Neck: Normal inspection. Neck supple. FROM. No adenopathy. Thyroid Normal. No meningeal signs. No neck mass noted. CVS: Normal heart rate and rhythm. Heart sound normal. No murmurs noted. Pulses normal throughout. Respiratory: No respiratory distress. Painless inspiration. Breath sounds normal. No wheezes/rales/rhonchi noted. Reproducible tenderness to the left side of the chest, deformity, no mass. No accessory muscle usage noted or decreased air movement noted. Abdomen: Soft and nontender. Bowel sounds normal in all 4 quadrants. No distention noted. No organomegaly noted. No visible injury noted. Back: No CVA tenderness. Full range of motion noted. Skin: Skin warm and dry. Normal skin color. Normal skin turgor. No rashes/lesions/lacerations noted. Extremities: No lower extremity edema. Extremities exhibit normal range of motion. Extremities nontender. Neuro: Oriented X 3. Cranial nerve exam: II-XII are grossly intact No motor deficit. No sensory deficit. Reflexes normal. Course Reevaluation(s) Reevaluation #1: Left side chest wall pain, unremarkable troponin x2, negative D-dimer with low risk for pulmonary embolism. Reproducible left-sided chest pain with unremarkable EKG and chest x-ray. Time: 05:00 Medical Decision Making Differential Diagnosis Differential Diagnoses: The differential diagnosis associated with the presentation includes (ACS, pulmonary embolism, pneumonia, pleural effusion, pleurisy, electrolyte derangement, severe anemia.) Admission/Observation Consideration of admission/observation: Escalation of care including admission/observation considered Lab Data MDM Lab Attestation statement: I reviewed the patient's lab results. 05/18/24 23:31 05/18/24 23:31 Labs: Lab Results 05/18/24 Range/Units 23:31 WBC 9.5 (4.8-10.8) X10*3/uL RBC 4.52 L (4.60-5.80) X10*6/uL Hgb 13.7 L (14.0-18.0) g/dl Hct 39.3 L (42.0-52.0) % MCV 86.9 (80.0-98.0) fL MCH 30.3 (27.0-33.0) pg MCHC 34.9 (31.0-36.0) g/dl RDW 12.5 (11.0-16.0) % Plt Count 256 (160-400) X10*3/uL MPV 9.6 (9.4-12.4) fL Immature Gran % (Auto) 0.3 (0.0-0.4) % Neut % (Auto) 59.4 (45-73) % Lymph % (Auto) 24.2 (20-40) % [place] % (Auto) 14.0 H (2-11) % Eos % (Auto) 1.7 (0-4) % Baso % (Auto) 0.4 (0-2) % Lymph # (Auto) 2.3 (1.2-4.9) X10*3/uL [place] # (Auto) 1.3 H (0.1-1.2) X10*3/uL Eos # (Auto) 0.2 (0.0-0.4) X10*3/uL Baso # (Auto) 0.0 (0.0-0.2) X10*3/uL Abs Immat Gran (auto) 0.03 (0.00-0.03) X10*3/uL Absolute Neuts (auto) 5.6 (2.0-8.3) x10*3/uL Absolute Nucleated RBC 0.000 (0.0-0.012) X10*3/uL Nucleated RBC % (auto) 0.0 (0.0-0.2) /100WBC Sodium 140 (135-145) mmol/L Potassium 4.0 (3.3-5.1) mmol/L Chloride 109 H (96-108) mmol/L Carbon Dioxide 22 (22-29) mmol/L Anion Gap 13 (12-20) BUN 32 H (9-16) mg/dL Creatinine 1.20 (0.5-1.4) mg/dL Estim Creat Clear Calc 62.5 Estimated GFR > 60 Random Glucose 126 H (60-115) mg/dL Calcium 9.8 (8.4-10.2) mg/dL Total Bilirubin 0.4 (0.0-1.0) mg/dL AST 22 (5-37) U/L ALT 26 (0-40) U/L Alkaline Phosphatase 88 (39-117) U/L Troponin I High Sens < 2.7 (<3.5-35.0) ng/L Total Protein 7.6 (6.5-8.0) g/dL Albumin 4.5 (3.5-5.0) g/dL Lipase 14 (8-78) U/L Independent Interpretation I performed an independent interpretation of an: Plain X-Ray (Chest: No acute cardiopulmonary disease.) Radiology Impression Discussion of test interpretation with radiology: I have reviewed the radiologist's reading. Discharge Plan Discharge Clinical Impression: Anterior chest wall pain Patient Disposition: Still a Patient Instructions: Chest Wall Pain (ED) Prescriptions: No Action Trelegy Ellipta 200-62.5-25 mcg blister with device 1 inh inhalation DAILY 30 Days Qty: 60 7RF albuterol sulfate 2.5 mg /3 mL (0.083 %) solution for nebulization 2.5 mg inhalation Q4H PRN (Reason: shortness of breath or wheezing) 30 Days Qty: 360 7RF montelukast 10 mg tablet 10 mg PO BEDTIME Qty: 30 4RF albuterol sulfate 90 mcg/actuation HFA aerosol inhaler 2 puff PO Q4-6H PRN (Reason: Shortness Of Breath Or Wheezing) 30 Days Qty: 8.5 2RF atorvastatin 40 mg tablet 1 tab PO BEDTIME aspirin 81 mg tablet,delayed release (DR/EC) 1 tab PO QAM sildenafil [Viagra] 100 mg tablet 1 tab PO DAILY PRN (Reason: Erectile Dysfunction) amitriptyline 100 mg tablet 1 tab PO BEDTIME duloxetine 60 mg capsule,delayed release(DR/EC) 1 cap PO QAM finasteride 5 mg tablet 1 tab PO DAILY amlodipine 10 mg tablet 1 tab PO QAM metoprolol tartrate 50 mg tablet 1 tab PO ipratropium-albuterol 0.5 mg-3 mg(2.5 mg base)/3 mL solution for nebulization 3 ml inhalation Q4H PRN (Reason: shortness of breath or wheezing) Qty: 90 0RF Rx Instructions: until breathing returns to target peak flow/parameters lidocaine [Lidoderm] 5 % adhesive patch,medicated 1 patch topical DAILY Qty: 15 0RF Rx Instructions: leave on most painful area for up to 12 hrs (DME) nebulizers Misc See Rx Instructions .Route Rx Instructions: As directed metformin 500 mg tablet extended release 24 hr 500 mg PO BID Rx Instructions: 1000 mg in the morning and 500 mg at night ramelteon 8 mg tablet 8 mg PO DAILY gabapentin 300 mg capsule PO dicyclomine 20 mg tablet 20 mg PO QID 30 Days Qty: 120 6RF simethicone 180 mg capsule 180 mg PO QID 30 Days Qty: 120 6RF Rx Instructions: after meals rabeprazole [AcipHex] 20 mg tablet,delayed release (DR/EC) 20 mg PO BID Qty: 60 6RF terazosin 5 mg capsule 5 mg PO BEDTIME 90 Days Qty: 90 3RF tramadol 50 mg tablet 50 mg PO TID PRN (DME) FreeStyle Lite Strips Strip See Rx Instructions .ROUTE BID Qty: 10 Rx Instructions: As directed (DME) lancets [TRUEplus Lancets] [facility] See Rx Instructions .ROUTE .MEDSUPPLY Qty: 100 Rx Instructions: As directed Referrals: Chun Michel MD [Primary Care Provider] - Print Language: [place]i
[2024-05-19 04:08] LABS: D Dimer High Sensitivity < 150 NG/ML
[2024-05-19 04:12] LABS: Troponin-I High Sensitivity < 2.7 ng/L (<3.5-35.0)
[2024-05-19 05:39] VITALS: BP 112/69; PULSE 87; RESP 16; TEMP 36.6; O2SAT 96
== END 2024-05-19 05:40 | disposition home or self-care (01) ==
PROVIDERS: Emergency Provider Emergency Medicine; PCP Internal Medicine
DX: R07.89 Other chest pain (principal); R10.11 Right upper quadrant pain; E11.9 Type 2 diabetes mellitus without complications; Z79.899 Other long term (current) drug therapy; Z79.84 Long term (current) use of oral hypoglycemic drugs
CPT/HCPCS: 36415; 71045; 80053; 83690; 84484; 85025; 85379; 93005; 99285

== ENCOUNTER 2024-05-21 11:32 | Day surgery (SDC) | payer OTHER, SELFPAY ==
--- NOTE | 2024-05-20 09:04 | P.CONAN_ITS ---
Documented by User: Tammi Gaxiola NP 05/20/24 09:11 HPI - Anesthesia Eval Consult details Narrative: 64yo M for Upper Endoscopy [facility] ED 05/19/24 with anterior chest wall pain. Neg cardiac and pulmo assess. D/C home PMFSH Active Problems Active Problems: All Active Problems New abnormality on chest x-ray (Acute) Abdominal bloating (Acute) Chest pain (Acute) Flank lipoma (Acute) JACQUI on CPAP (Acute) Pulmonary nodules (Acute) Asthma-COPD overlap syndrome (Acute) IBS (irritable bowel syndrome) (Acute) Tubular adenoma of colon (Acute) BPH loc w urin obs/LUTS (Acute) Umbilical hernia (Acute) GERD (gastroesophageal reflux disease) (Acute) Past Medical History Medical History New abnormality on chest x-ray REJI (acute kidney injury) Urgency of micturition Urinary hesitancy Nocturia more than twice per night Benign prostatic hyperplasia with weak urinary stream Epidermal inclusion cyst Atelectasis Fecal incontinence Flank lipoma Asthma-COPD overlap syndrome IBS (irritable bowel syndrome) Umbilical hernia Diabetes Arthritis Back pain GERD (gastroesophageal reflux disease) Bipolar 1 disorder Anxiety Depression Elevated cholesterol Tension pneumothorax, spontaneous Hypertension Asthma Family History Family History Mother Stomach cancer Brother Prostate cancer Brother Prostate cancer Family history of problems with anesthesia: No Surgical History Surgical History S/P excision of lipoma (02/20/23) History of excision of mass (12/13/22) Hx of colonoscopy Hx of tracheostomy History of lung surgery Hx of hernia repair History of Problems with Anesthesia: No Social History Social History Household Members: None Housing: Apartment Do you presently have visiting nurse or other home services: No Alcohol intake: current Alcohol intake frequency: a few times a month Alcohol type: beer Patient Tobacco Use Status: Never used Tobacco e-Cigarette/Vaping Use: Never Used Second Hand Smoke Exposure: No Use of substances other than those prescribed or required for medical reasons: Yes Substance Use Type: Marijuana Are you DNR?: No Advance Directives: No Advance Directives Information Provided: Yes Advance Directives Date on File: 03/28/21 service: No Current occupational status: unemployed Meds Allergies Allergy/AdvReac Type Severity Reaction Status Date / Time No Known Allergies Allergy Verified 05/18/24 23:19 [No Known Allergies*] Home Medications ?Medication ?Instructions ?Recorded ?Confirmed ?Last Taken ?Type amitriptyline 100 mg tablet 1 tab PO BEDTIME 07/25/20 01/21/24 Unknown History aspirin 81 mg tablet,delayed 1 tab PO QAM 07/25/20 01/21/24 09/07/21 History release atorvastatin 40 mg tablet 1 tab PO BEDTIME 07/25/20 01/21/24 Unknown History sildenafil 100 mg tablet (Viagra) 1 tab PO DAILY PRN Erectile 07/25/20 01/21/24 Unknown History Dysfunction duloxetine 60 mg capsule,delayed 1 cap PO QAM 03/28/21 01/21/24 Unknown History release finasteride 5 mg tablet 1 tab PO DAILY 07/08/21 01/21/24 Unknown History amlodipine 10 mg tablet 1 tab PO QAM 09/08/21 01/21/24 Unknown History metoprolol tartrate 50 mg tablet 1 tab PO 09/08/21 01/21/24 Unknown History nebulizers 10/26/22 01/21/24 Unknown History tramadol 50 mg tablet 50 mg PO TID PRN 08/16/23 01/21/24 Unknown History metformin 500 mg tablet,extended 500 mg PO BID 12/24/23 01/21/24 Unknown History release 24 hr blood sugar diagnostic (FreeStyle #10 ea 02/06/24 Unknown History Lite Strips) lancets 33 gauge (TRUEplus Lancets) #100 ea 02/06/24 Unknown History ramelteon 8 mg tablet 8 mg PO DAILY 02/21/24 Unknown History gabapentin 300 mg capsule mg PO 05/06/24 Unknown History Exam Pertinent Lab Results Pertinent Lab Results: Laboratory Tests 05/18/24 23:31 WBC 9.5 Hgb 13.7 L Hct 39.3 L Plt Count 256 Sodium 140 Potassium 4.0 Chloride 109 H Carbon Dioxide 22 BUN 32 H Creatinine 1.20 Narrative Narrative: XR chest 1V 05/2024 IMPRESSION: No acute cardiopulmonary disease EKG 05/2024 Vent. Rate : 084 BPM Atrial Rate : 084 BPM P-R Int : 146 ms QRS Dur : 098 ms QT Int : 372 ms P-R-T Axes : 057 024 046 degrees QTc Int : 439 ms Normal sinus rhythm Normal ECG When compared with ECG of 14-OCT-2023 23:22, No significant change was found Exercise Stress 08/2023 Protocol: JEREMIAS Max HR: 137 BPM 88% of Pred: 155 BPM Max BP: 140/080 mmHG Max Work Load: 8.8 METS Exercise stress test exercise 7 min 10 sec of Jeremias protcol achieving 87% MPHR, with mild SOB, no chest discomfort, with isolated PVCs, with normotensive response to exercise, with scooping lead 2, aVF. Test reviewed with Dr. Lin. Assessment and Plan Assessment Anesthesia Assessment: Chart Reviewed Final Anesthetic Review Family History of Problems with Anesthesia: No History of Problems with Anesthesia: No Documented by User: Chapito Miranda MD 05/21/24 12:12 [facility] Past Medical History Medical History New abnormality on chest x-ray REJI (acute kidney injury) Urgency of micturition Urinary hesitancy Nocturia more than twice per night Benign prostatic hyperplasia with weak urinary stream Epidermal inclusion cyst Atelectasis Fecal incontinence Flank lipoma Asthma-COPD overlap syndrome IBS (irritable bowel syndrome) Umbilical hernia Diabetes Arthritis Back pain GERD (gastroesophageal reflux disease) Bipolar 1 disorder Anxiety Depression Elevated cholesterol Tension pneumothorax, spontaneous Hypertension Asthma Family History Family History Mother Stomach cancer Brother Prostate cancer Brother Prostate cancer Surgical History Surgical History S/P excision of lipoma (02/20/23) History of excision of mass (12/13/22) Hx of colonoscopy Hx of tracheostomy History of lung surgery Hx of hernia repair Social History Social History Household Members: None Housing: Apartment Do you presently have visiting nurse or other home services: No Alcohol intake: current Alcohol intake frequency: a few times a month Alcohol type: beer Patient Tobacco Use Status: Never used Tobacco e-Cigarette/Vaping Use: Never Used Second Hand Smoke Exposure: No Use of substances other than those prescribed or required for medical reasons: Yes Substance Use Type: Marijuana Are you DNR?: No Advance Directives: No Advance Directives Information Provided: Yes Advance Directives Date on File: 03/28/21 service: No Current occupational status: unemployed Meds Allergies Allergy/AdvReac Type Severity Reaction Status Date / Time No Known Allergies Allergy Verified 05/18/24 23:19 [No Known Allergies*] Home Medications ?Medication ?Instructions ?Recorded ?Confirmed ?Last Taken ?Type amitriptyline 100 mg tablet 1 tab PO BEDTIME 07/25/20 01/21/24 Unknown History aspirin 81 mg tablet,delayed 1 tab PO QAM 07/25/20 01/21/24 09/07/21 History release atorvastatin 40 mg tablet 1 tab PO BEDTIME 07/25/20 01/21/24 Unknown History sildenafil 100 mg tablet (Viagra) 1 tab PO DAILY PRN Erectile 07/25/20 01/21/24 Unknown History Dysfunction duloxetine 60 mg capsule,delayed 1 cap PO QAM 03/28/21 01/21/24 Unknown History release finasteride 5 mg tablet 1 tab PO DAILY 07/08/21 01/21/24 Unknown History amlodipine 10 mg tablet 1 tab PO QAM 09/08/21 01/21/24 Unknown History metoprolol tartrate 50 mg tablet 1 tab PO 09/08/21 01/21/24 Unknown History nebulizers 10/26/22 01/21/24 Unknown History tramadol 50 mg tablet 50 mg PO TID PRN 08/16/23 01/21/24 Unknown History metformin 500 mg tablet,extended 500 mg PO BID 12/24/23 01/21/24 Unknown History release 24 hr blood sugar diagnostic (FreeStyle #10 ea 02/06/24 Unknown History Lite Strips) lancets 33 gauge (TRUEplus Lancets) #100 ea 02/06/24 Unknown History ramelteon 8 mg tablet 8 mg PO DAILY 02/21/24 Unknown History gabapentin 300 mg capsule mg PO 05/06/24 Unknown History Exam Airway Mallampati Class: I TM Dist: <=3cm Neck ROM: Full Loose/Missing/Broken Teeth: Yes, Upper and Lower Heart: ok Lungs: ok Assessment and Plan Assessment Anesthesia Assessment: Anesthesia Plan Discussed Final Anesthetic Review NPO: Yes ASA Class: III Final Preanesthetic Review: No Changes in Pt Med Stat, Meds/Allgs Chart Reviewed, Consent Obtained/Reviewed and Anes Risks/Benef Reviewed Patient Risk: Intermediate Procedure Risk: Intermediate Anesthetic Plan Anesthetic Plan: Agree w/ Assess. and Plan and TIVA Disposition: Standard PACU
[2024-05-21 11:42] VITALS: BMI 24.0
--- NOTE | 2024-05-21 11:58 | MHC.SHP ---
Pre-Procedural Eval Section A - 24 Hr Update-Section A only Date of Service: 05/21/24 Section B - Complete if H&P > 30 days Chief Complaint: Gastro-esophageal reflux disease without esophagit Relevant Family History (Specify if Yes): No Relevant Social History: Other (specify) Present Medications: see Short Stay Collaborative assessment Medical History: Significant History (New abnormality on chest x-ray REJI (acute kidney injury) Urgency of micturition Urinary hesitancy Nocturia more than twice per night Benign prostatic hyperplasia with weak urinary stream Epidermal inclusion cyst Atelectasis Fecal incontinence Flank lipoma Asthma-COPD overlap syndrome IBS (irritable ) History of Previous Operations: Relevant previous surgery/procedure and date(s) ( S/P excision of lipoma (02/20/23) History of excision of mass (12/13/22) Hx of colonoscopy Hx of tracheostomy History of lung surgery Hx of hernia repair) Allergies: Allergies Allergy/AdvReac Type Severity Reaction Status Date / Time No Known Allergies Allergy Verified 05/18/24 23:19 [No Known Allergies*] Review of Systems Sugical H&P ROS: Negative: Constitution, Cardiovascular, Respiratory, Neurological, Psychiatric, Hem-Onc, Allergic/Immunologic, Gastrointestinal, Genitourinary, Musculoskeletal, Integumentary, Endocrine and Eyes/Ears/Nose/Throat Exam Surgical H&P Exam: Normal: HEENT, Normal: Heart, Normal: Lungs, Normal: Extremities, Normal: Abdomen, Normal: Skin and Normal: Neurological Plan Diagnosis/Plan: Unchanged I have reviewed the history and physical and performed a pertinent physical examination on my patient. No changes have occurred unless specified. Time Spent With Patient Time: Total time managing care of this patient today ____ minutes.
[2024-05-21 12:07] LABS: Glucose, Whole Blood 131 mg/dL (60-115)
[2024-05-21 12:08] VITALS: BP 138/82; PULSE 87; RESP 16; TEMP 36.7; O2SAT 98
[2024-05-21] MEDS: Lactated Ringers 1,000 ML 100 ML IVCONT (12:14)
--- NOTE | 2024-05-21 12:36 | W.PM.OPN ---
Operative Note Operative Note Date of Service: 05/21/24 Narrative: Procedure Description: EGD Indication: GERD Anesthesia: MAC FLEXIBLE TRANSORAL UPPER GASTROINTESTINAL ENDOSCOPY UPPER ENDOSCOPY Consent: Indications for the procedure and potential complications of bleeding, perforation, reaction to medications and missed diagnosis were discussed with the patient and informed consent was obtained. Instrument: Olympus GIF H 190 J mid size upper endoscope Monitoring: Vital signs and clinical assessment, continuous EKG monitoring, Pulse oximetry, Carbon Dioxide monitoring and blood pressure monitoring were done throughout the procedure. Procedure: The patient was placed in the left lateral decubitis position and pre-procedure medications were administered and a bite block was placed. The endoscope was inserted into the mouth and advanced under direct vision to the third part of duodenum. A careful inspection was made as the upper endoscope was withdrawn including a retroflexed examination of the proximal stomach; Findings and interventions are described below. Findings: Larynx:normal Esophagus: GE junction at 39 cm, diaphragm hiatus at 42 cm, consistent with 3 cm sliding hiatal hernia, schatzki ring noted with patulous LES--balloon dilation doen to 18 mm and UES as well, no tears seen, biopsy taken from GEJ as possible short segment Barretts Stomach: patchy erythema with erosions and granularity . Biopsies were obtained. Grade 2 flap valve on retroflexed examination of the cardia. Duodenum: Normal bulb and descending duodenum, Intervention: Biopsies as noted above, balloon dilation Impression/Findings: erosive gastritis schatzki ring possible barretts patulous GEJ PLAN: if H pylori pos then treat GERD precautions
[2024-05-21 12:42] VITALS: BP 109/69; PULSE 82; RESP 12; TEMP 36.6; O2SAT 98
[2024-05-21 12:55] VITALS: BP 134/69; PULSE 72; RESP 14; O2SAT 98
[2024-05-21 13:10] VITALS: BP 141/81; PULSE 80; RESP 16; TEMP 36.6; O2SAT 98
== END 2024-05-21 13:35 | disposition home or self-care (01) ==
PROVIDERS: PCP Internal Medicine; Visit Provider Internal Medicine Gastroenterology
PROC: 0DJ08ZZ Inspection of Upper Intestinal Tract, Via Natural or Artificial Opening Endoscopic (ICD-10-PCS; CPT 43235; principal; 2024-05-21 12:40)
DX: K22.70 Barrett's esophagus without dysplasia (principal); K22.2 Esophageal obstruction; K22.4 Dyskinesia of esophagus; A04.8 Other specified bacterial intestinal infections; K21.9 Gastro-esophageal reflux disease without esophagitis; K44.9 Diaphragmatic hernia without obstruction or gangrene; E11.9 Type 2 diabetes mellitus without complications; I10 Essential (primary) hypertension; E78.5 Hyperlipidemia, unspecified; K58.9 Irritable bowel syndrome, unspecified; J44.9 Chronic obstructive pulmonary disease, unspecified; G47.33 Obstructive sleep apnea (adult) (pediatric); Z99.89 Dependence on other enabling machines and devices; Z79.82 Long term (current) use of aspirin; Z79.84 Long term (current) use of oral hypoglycemic drugs; Z79.899 Other long term (current) drug therapy
CPT/HCPCS: 43249; 43239; 82947; 88305; 88313; 88342; C1726; J2003; J2704

== ENCOUNTER → 2024-05-21 11:32 | Outpatient (BNV) | payer OTHER, SELFPAY | PROVIDERS: PCP Internal Medicine; Visit Provider Internal Medicine Gastroenterology | DX: K21.9 Gastro-esophageal reflux disease without esophagitis (principal); K22.2 Esophageal obstruction; K29.70 Gastritis, unspecified, without bleeding; K22.70 Barrett's esophagus without dysplasia | CPT/HCPCS: 43239; 43249 ==

== ENCOUNTER 2024-07-23 12:57 | Outpatient (AMB) | payer OTHER, SELFPAY ==
[2024-07-23 13:00] VITALS: BP 111/69; PULSE 77; BMI 25.7
--- NOTE | 2024-07-23 13:00 | A.OFFVIS_ITS ---
Vital Signs 07/23/24 13:00 Height 5 ft 10 in Weight 179 lb BMI 25.7 BP 111/69 Blood Pressure Location Lt brachial Position Sitting Pulse 77 Intake Visit Reasons: s/p EGD and H pylori Intake Note: Francisco J presents in office today in follow up of EGD and H pylori. CC: Patient reports that one of the medications given to him to treat H pylori gave him a rash on his milligan and he stopped it. He states that he does not know the names of the medications he is taking. He reports feeling better from heartburn with medication. Processing Spec Required: Yes Processing Spec Language: [place] Accompanied by: Self / Same As Patient Allergies No Known Allergies [No Known Allergies*] Allergy (Verified 07/23/24 13:05) HPI HPI s/p EGD and H pylori: Details: Assessment & Plan (1) GERD (gastroesophageal reflux disease): Code(s): K21.9 - Gastro-esophageal reflux disease without esophagitis Category: Medical (2) Abdominal bloating: Code(s): R14.0 - Abdominal distension (gaseous) Category: Medical (3) IBS (irritable bowel syndrome): Code(s): K58.9 - Irritable bowel syndrome, unspecified Category: Medical (4) Tubular adenoma of colon: Comment: [address] Sims, 2020 SESSILE POLYP REPEAT 5 YEARS Code(s): D12.6 - Benign neoplasm of colon, unspecified Category: Medical Plan [place] #Dave Live The patient is due for recall colonoscopy in 2025 we need to discuss this at his late 2024 visit. He did receive simethicone and this is helpful for his bloating. Despite adherence to o2o bid, he still has severe GERD every day. 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 He has a hx of tracheostomy s/p trauma and he has mild dysphagia in the upper esophageal area. Also, CXR 10/2023 showing possible question of aspiration. He is agreeable to EGD. Changing omeprazole to aciphex or other agent depending on insurance step therapy. ROV 6 weeks. Orders: Orders EGD - GI Use Only 05/06/24 K21.9 - Gastro-esophageal reflux disease without esophagitis Medications: New rabeprazole (AcipHex) 20 mg PO BID 60 tabs 6RF K21.9 - Gastro-esophageal reflux disease without esophagitis Refilled dicyclomine 20 mg PO QID 120 tabs 6RF 30 days K58.9 - Irritable bowel syndrome, unspecified, R15.9 - Full incontinence of feces simethicone after meals 180 mg PO QID 120 caps 6RF 30 days EGD 05/21/24 Findings: Larynx:normal Esophagus: GE junction at 39 cm, diaphragm hiatus at 42 cm, consistent with 3 cm sliding hiatal hernia, schatzki ring noted with patulous LES--balloon dilation doen to 18 mm and UES as well, no tears seen, biopsy taken from GEJ as possible short segment Barretts Stomach: patchy erythema with erosions and granularity . Biopsies were obtained. Grade 2 flap valve on retroflexed examination of the cardia. Duodenum: Normal bulb and descending duodenum, Intervention: Biopsies as noted above, balloon dilation Impression/Findings: erosive gastritis schatzki ring possible barretts patulous GEJ PLAN: if H pylori pos then treat GERD precautions Received: 05/21/24 Diagnosis A. Stomach, biopsy: - Antral-type and oxyntic mucosa with moderate chronic active inflammation and focal intestinal metaplasia; negative for dysplasia. - Positive for H pylori. B. GE junction, biopsy: - Merlos esophagus with background mild chronic inactive inflammation. - No dysplasia seen. - Squamous mucosa within normal limits CORRESPONDENCE On 05/27/24 @ 13:28 Peace Lino Wrote To Peace Lino (3) Please call this patient and let them know they have an H pylori infection causing their symptoms. I am going to send quadruple therapy. Please let them know that there can be no alcohol with Flagyl they will vomit. Please stressed the importance of completing the regimen because H pylori is a difficult microbe to kill. Asked them pleased to start a probiotic supplement to avoid any diarrhea or rashes during treatment because of the strong antibiotics. Can not prescribe this as it is not cover they will have to buy something inexpensive [id number] such as [employer]. You may want to reschedule them out to 8 weeks from today so that we can evaluate the response at that time. Valorie please do not call the patient says it is my patient and I will take care of it from here. On 05/25/24 @ 12:39 David Brown Wrote To Christy Mckinley pls tell pt pos for h pylori needs treatment also barretts pos, needs rept EGD in 3 yrs or s TODAY'S VISIT [place] #[id number] He received the abx - quad therapy - and has a couple of days left. He expresses concern that his stools are black, and I explain that this is from the bismuth tablets. Overall he is feeling much better and having less reflux so this is encouraging. Return office visit next available to do an H pylori stool test then she is on b.i.d. AcipHex. At that point if the bacteria is eradicated we might want to consider tapering the dose. [facility] Medical History (Updated 07/23/24 @ 13:37 by BRIGITTE Larson) New abnormality on chest x-ray REJI (acute kidney injury) Urgency of micturition Urinary hesitancy Nocturia more than twice per night Benign prostatic hyperplasia with weak urinary stream Epidermal inclusion cyst Atelectasis Fecal incontinence Flank lipoma Asthma-COPD overlap syndrome IBS (irritable bowel syndrome) Umbilical hernia Diabetes Arthritis Back pain GERD (gastroesophageal reflux disease) Bipolar 1 disorder Anxiety Depression Elevated cholesterol Tension pneumothorax, spontaneous Hypertension Asthma Surgical History (Updated 07/23/24 @ 13:10 by JAZMYN Leong) History of esophagogastroduodenoscopy (EGD) S/P excision of lipoma (02/20/23) History of excision of mass (12/13/22) Hx of colonoscopy Hx of tracheostomy History of lung surgery Hx of hernia repair Family History Mother Stomach cancer Brother Prostate cancer Brother Prostate cancer Social History Household Members: None Housing: Apartment Do you presently have visiting nurse or other home services: No Alcohol intake: current Alcohol intake frequency: a few times a month Alcohol type: beer Patient Tobacco Use Status: Never used Tobacco e-Cigarette/Vaping Use: Never Used Second Hand Smoke Exposure: No Substance Use Type: Marijuana Advance Directives Date on File: 03/28/21 service: No Current occupational status: unemployed Review of Systems Const Denies fatigue, Denies fever(s), Denies night sweats, Denies poor appetite and Denies weight loss ENT Reports Normal hearing present, Denies dental pain, Denies dysphagia, Denies hearing loss, Denies mouth pain, Denies odynophagia, Denies throat swelling, Denies tongue swelling and Reports other (Dentition adequate) Card Reports no additional complaints Resp Reports no additional complaints GI Details: Denies abdominal pain, Denies melena, Denies bloating, Denies hematochezia, Denies constipation, Denies GI cramping, Denies dysphagia, Denies excessive flatus, Denies early satiety, Reports heartburn, Denies diarrhea, Denies nausea, Denies odynophagia, Denies vomiting and Denies hematemesis Skin/Breast Denies pruritus, Denies lesions, Denies rash and Denies jaundice Neuro Reports Normal hearing present and Denies Abnormal speech present Endo Denies fatigue Aller/Immun Denies throat swelling and Denies tongue swelling Physical Exam Vital Signs: Last Vital Signs Pulse 77 07/23/24 13:00 BP 111/69 07/23/24 13:00 BMI result Body Mass Index 25.7 Const General: cooperative, no acute distress, well developed and well groomed Nutritional Appearance: well nourished and obese Orientation/consciousness: oriented to person, oriented to place and oriented to time Limitations: language barrier HEENT Head: Yes normocephalic and Yes atraumatic Eyes General: appearance normal, both eyes and all related structures Pupils: Equal, round and reactive pupils present Neck Neck: Yes normal visual inspection and Yes no lymphadenopathy Thyroid: Thyroid normal Resp Effort & Inspection: normal respiratory effort and able to speak in complete sentences Auscultation: clear to auscultation bilaterally Cardio Rate: regular rate Rhythm: regular rhythm Heart sounds: Normal, physiologic split S2 sound present Peripheral pulses: radial pulses present and posterior tibial pulses present GI Inspection: No distended, No Abdominal panniculus present and Yes obesity Palpation (GI): Soft to palpation, nontender, no guarding, not rigid and No hepatosplenomegaly present Percussion: Yes normal to percussion Auscultation: normal bowel sounds Rectal Exam - Male: Yes deferred Skin General skin exam: no rashes or lesions noted, turgor normal, skin not dry, no jaundice, No spider nevi and no striae Rashes: no rashes Nails: normal Neuro General: oriented to person, oriented to place and oriented to time Cranial nerves: Yes Equal, round and reactive pupils present and Yes Normal hearing present Speech: No Abnormal speech present Extrem General: Yes normal to inspection, No clubbing, No cyanosis and No edema Psych Appearance: grossly normal and well kempt Mental Status: mental status grossly normal Speech and movement: Normal speech and movement present Affect: normal affect Attitude: cooperative Thought process: Normal thought process present and not confabulating Thought content: Normal thought content present Insight: Limited insight present (Psych) Judgement: Limited judgement present (Psych) Results Reviewed Results Reviewed: EGD 05/21/24 Findings: Larynx:normal Esophagus: GE junction at 39 cm, diaphragm hiatus at 42 cm, consistent with 3 cm sliding hiatal hernia, schatzki ring noted with patulous LES--balloon dilation doen to 18 mm and UES as well, no tears seen, biopsy taken from GEJ as possible short segment Barretts Stomach: patchy erythema with erosions and granularity . Biopsies were obtained. Grade 2 flap valve on retroflexed examination of the cardia. Duodenum: Normal bulb and descending duodenum, Intervention: Biopsies as noted above, balloon dilation Impression/Findings: erosive gastritis schatzki ring possible barretts patulous GEJ PLAN: if H pylori pos then treat GERD precautions Received: 05/21/24 Diagnosis A. Stomach, biopsy: - Antral-type and oxyntic mucosa with moderate chronic active inflammation and focal intestinal metaplasia; negative for dysplasia. - Positive for H pylori. B. GE junction, biopsy: - Merlos esophagus with background mild chronic inactive inflammation. - No dysplasia seen. - Squamous mucosa within normal limits Assessment & Plan Assessment & Plan (1) H. pylori duodenitis: Code(s): K29.80 - Duodenitis without bleeding; B96.81 - Helicobacter pylori [H. pylori] as the cause of diseases classified elsewhere Category: Medical (2) Merlos's esophagus determined by biopsy: Comment: 06/2024 EGD=HP and SSBE Code(s): K22.70 - Merlos's esophagus without dysplasia Category: Medical (3) GERD (gastroesophageal reflux disease): Code(s): K21.9 - Gastro-esophageal reflux disease without esophagitis Category: Medical (4) Tubular adenoma of colon: Comment: [address] Sims, 2020 SESSILE POLYP REPEAT 5 YEARS Code(s): D12.6 - Benign neoplasm of colon, unspecified Category: Medical (5) IBS (irritable bowel syndrome): Code(s): K58.9 - Irritable bowel syndrome, unspecified Category: Medical (6) Erosive gastritis: Comment: Likely related to H pylori infection Code(s): K29.60 - Other gastritis without bleeding Category: Medical Plan [place] #[id number] He received the abx - quad therapy - and has a couple of days left. He expre sses concern that his stools are black, and I explain that this is from the bismuth tablets. Overall he is feeling much better and having less reflux so this is encouraging. Return office visit next available to do an H pylori stool test then she is on b.i.d. AcipHex. At that point if the bacteria is eradicated we might want to consider tapering the dose. Coding Level of Care Code Est Pt Level 3 (68857) Diagnoses H. pylori duodenitis K29.80; B96.81 Merlos's esophagus determined by biopsy K22.70 GERD (gastroesophageal reflux disease) K21.9 Tubular adenoma of colon D12.6 IBS (irritable bowel syndrome) K58.9 Erosive gastritis K29.60
== END 2024-07-23 13:19 | disposition home or self-care (01) ==
PROVIDERS: PCP Internal Medicine; Visit Provider Nurse Practitioner
DX: K29.80 Duodenitis without bleeding (principal); B96.81 Helicobacter pylori [H. pylori] as the cause of diseases classified elsewhere; K22.70 Barrett's esophagus without dysplasia; K21.9 Gastro-esophageal reflux disease without esophagitis; D12.6 Benign neoplasm of colon, unspecified; K58.9 Irritable bowel syndrome, unspecified; K29.60 Other gastritis without bleeding
CPT/HCPCS: 99213

== ENCOUNTER → 2024-07-23 12:57 | Outpatient (BNVA) | payer OTHER, SELFPAY | PROVIDERS: PCP Internal Medicine; Visit Provider Nurse Practitioner | DX: K29.80 Duodenitis without bleeding (principal); B96.81 Helicobacter pylori [H. pylori] as the cause of diseases classified elsewhere; K22.70 Barrett's esophagus without dysplasia; K21.9 Gastro-esophageal reflux disease without esophagitis; K58.9 Irritable bowel syndrome, unspecified; K29.60 Other gastritis without bleeding; D12.6 Benign neoplasm of colon, unspecified | CPT/HCPCS: 99212 ==

== ENCOUNTER 2024-08-09 08:53 | Emergency (ER) | payer OTHER, SELFPAY ==
--- NOTE | 2024-08-09 08:56 | ECG_ITS ---
Test Reason : CHEST PAIN Blood Pressure : */* mmHG Vent. Rate : 77 BPM Atrial Rate : 77 BPM P-R Int : 162 ms QRS Dur : 92 ms QT Int : 390 ms P-R-T Axes : 63 3 30 degrees QTcB Int : 441 ms Normal sinus rhythm Normal ECG When compared with ECG of 18-May-2024 23:07, No significant change was found Referred By: Generic ED Physician Electronically Signed By: SORAYA RIGGS
[2024-08-09 09:05] VITALS: BP 163/87; PULSE 78; RESP 18; TEMP 36.3; O2SAT 97; BMI 24.7
[2024-08-09 09:22] LABS: MANUAL DIFF FLAG NO
[2024-08-09 09:23] LABS: Basophils Absolute Auto 0.1 X10*3/uL (0.0-0.2); Basophils Percent Auto 0.7 % (0-2); Eosinophils Absolute Auto 0.5 X10*3/uL (0.0-0.4); Eosinophils Percent Auto 5.8 % (0-4); Hematocrit 42.6 % (42.0-52.0); Hemoglobin 14.6 g/dl (14.0-18.0); Imm Gran Abs Auto 0.02 X10*3/uL (0.00-0.03); Imm Gran Pct Auto 0.2 % (0.0-0.4); Lymphocytes Absolute Auto 2.7 X10*3/uL (1.2-4.9); Lymphocytes Percent Auto 31.2 % (20-40); Mean Corpuscular HGB Conc 34.3 g/dl (31.0-36.0); Mean Corpuscular Hemoglobin 29.5 pg (27.0-33.0); Mean Corpuscular Volume 86.1 fL (80.0-98.0); Mean Platelet Volume 9.5 fL (9.4-12.4); Monocytes Absolute Auto 1.2 X10*3/uL (0.1-1.2); Monocytes Percent Auto 13.5 % (2-11); Neutrophils Absolute Auto 4.2 x10*3/uL (2.0-8.3); Neutrophils Percent Auto 48.6 % (45-73); Platelet Count 277 X10*3/uL (160-400); Red Blood Count 4.95 X10*6/uL (4.60-5.80); Red Cell Distribution Width 12.5 % (11.0-16.0); White Blood Count 8.6 X10*3/uL (4.8-10.8)
[2024-08-09 09:35] LABS: Anion Gap 13 (12-20); Blood Urea Nitrogen 21 mg/dL (9-16); Calcium 9.7 mg/dL (8.4-10.2); Carbon Dioxide 23 mmol/L (22-29); Chloride 107 mmol/L (96-108); Creatinine Clr Calc Pharmacy 92.6; Estimated Glomerular Filt Rate > 60; Glucose Random 100 mg/dL (60-115); Potassium 3.8 mmol/L (3.3-5.1); Sodium 139 mmol/L (135-145)
[2024-08-09 09:45] LABS: Troponin-I High Sensitivity < 2.7 ng/L (<3.5-35.0)
--- OUTSIDE RECORDS SUMMARY | 2024-08-09 15:49 | XMS_ITS | Encounter Summary ---
Author Organization [employer] Address [address] [facility] [address] 7t [place] [address] Care Team Providers Care Fur Remodeler Name Role Phone Chun Porras MD Primary Care Provide r Lynsey Madison PharmD Unavailable [phone] Reason for Visit * Reason Comments Med Refill Encounter Details Date Type Department Care Team ([facility] st Contact Info) Description 09/18/2023 Refill [facility] MEDICINE [address] [place] [address] Chun Porras MD 230 [place] [address] Mixed hyperlipidemia Social History Tobacco Use Types Packs/Day Years Used Date Smoking Tobacco: Never Passive Smoke Exposure: Never Smokeless Tobacco: Never Alcohol Use Standard Drinks/Week Comments Not Currently 0 (1 standard drink = 0.6 oz pur e alcohol) Depression Answer Date Recorded Patient Health Questionnaire-9 Score 3 07/06/2022 Housing Stability Answer Date Recorded What is your housing situation today? I have angelica pederson 05/03/[address] you li ve. Do you have problems with any of the following? None of the above 05/03/2023 Food Insecurity Answer Date Recorded Within the past 12 months, y ou worried that your food would run out before you got money to buy more: Never True 05/03/2023 Within the past 12 months,th e food you bought just didn't last and you didn't have enough money to get more: Never True Transportation Answer Date Recorded In the past 12 months, has l ack of transportation kept you from medical appts, meetings, work or from getting things needed for daily living? No 05/03/2023 Utilities Answer Date Recorded In the past 12 months, has t he electric, gas, oil or water company threatened to shut off services in your home? No 05/03/2023 Depression Answer Date Recorded Patient Health Questionnaire-2 Score 0 07/06/2022 Sex and Gender Information Value Date Recorded Sex Assigned at Male 05/14/2022 10:26 AM EDT Legal Sex Male 10:26 AM EDT Gender Identity Male 05/14/2022 10:26 AM EDT Sexual Orientation Straight 05/14/2022 10 :26 AM EDT documented as of this encounter Plan of Treatment Upcoming Encounters Date Type Department Care Team (Late st Contact Info) Description 08/21/2024 10:30 AM EST Clinical Support [facility] MEDICINE [address] [place] [address] Maritza Mejia RN 505 [place] [address] 09/10/2024 11:30 AM EST Office Visit [facility] MEDICINE [address] [place] [address] Chun Porras MD [address] [place] [address] documented as of this encounter Goals Goal Patient Goal Type Associated Problems Recent Progress Patient-Stated? Author Blood Pressure < 140/90 Blood Pressure Essential hypertension 126/72(2023 5:58 PM EST) No Lynsey Madison PharmD documented as of this encounter Visit Diagnoses Diagnosis Mixed hyperlipidemia documented in this encounter Additional Health Concerns Assessment Noted Time PHQ-9 Depression Total Score: 3 07/06/20 22 11:00 AM EST documented as of this encounter Care Teams Fur Remodeler Relationship Specialty Start Date End Date Chun Porras MD [address] [place] [address] PCP - General Internal Medicine 05/26/14 Lynsey Madison PharmD [address] [place] [address] Pharmacist Internal Medicine 09/26/23 documented as of this encounter
--- OUTSIDE RECORDS SUMMARY | 2024-08-09 15:49 | XMS_ITS | Encounter Summary ---
Author Organization [employer] Address [address] 7t [place] [address] Care Team Providers Care Voice Coach Name Role Phone Chun Porras MD Primary Care Provide r Lynsey Madison PharmD Unavailable [phone] Reason for Visit * Reason Comments Med Refill Encounter Details Date Type Department Care Team ([facility] st Contact Info) Description 07/14/2024 Refill [facility] MEDICINE 230 [place] [address] Lynsey Madison, PharmD 230 [place] [address] Essential hypertension Social History Tobacco Use Types Packs/Day Years Used Date Smoking Tobacco: Never Passive Smoke Exposure: Never Smokeless Tobacco: Never Alcohol Use Standard Drinks/Week Comments Not Currently 0 (1 standard drink = 0.6 oz pur e alcohol) Alcohol Answer Date Recorded How often do you have a drink containing alcohol ? 2 06/09/2024 Average Number of Drinks Not on file 024 Frequency of Binge Drinking Not on file 05/16 Depression Answer Date Recorded Patient Health Questionnaire-9 Score 1 11/12/2023 Patient Health Questionnaire-9 Score 1 11/12/2023 Last PHQ-9: Questionnaire Data Not on file 0 11/12/2023 Housing Stability Answer Date Recorded What is your housing situation today? I have angelica pederson 11/04/[address] you li ve. Do you have problems with any of the following? None of the above 11/04/2023 Food Insecurity Answer Date Recorded Within the past 12 months, y ou worried that your food would run out before you got money to buy more: Never True 11/04/2023 Within the past 12 months,th e food you bought just didn't last and you didn't have enough money to get more: Never True Transportation Answer Date Recorded In the past 12 months, has l ack of transportation kept you from medical appts, meetings, work or from getting things needed for daily living? No 11/04/2023 Utilities Answer Date Recorded In the past 12 months, has t he [employer], gas, oil or water company threatened to shut off services in your home? No 11/04/2023 Depression Answer Date Recorded Patient Health Questionnaire-2 Score 0 11/12/2023 Sex and Gender Information Value Date Recorded Sex Assigned at Male 05/14/2022 10:26 AM EDT Legal Sex Male 10:26 AM EDT Gender Identity Male 05/14/2022 10:26 AM EDT Sexual Orientation Straight 05/14/2022 10 :26 AM EDT documented as of this encounter Plan of Treatment Upcoming Encounters Date Type Department Care Team (Late st Contact Info) Description 08/21/2024 10:30 AM EST Clinical Support [facility] MEDICINE [address] [place] [address] Maritza Mejia RN 505 [place] [address] 09/10/2024 11:30 AM EST Office Visit [address] [address] Chun Porras MD [address] [place] [address] documented as of this encounter Goals Goal Patient Goal Type Associated Problems Recent Progress Patient-Stated? Author Blood Pressure < 140/90 Blood Pressure Essential hypertension 126/72(2023 5:58 PM EST) No Lynsey Madison, MichaelD documented as of this encounter Visit Diagnoses Diagnosis Essential hypertension Unspecified essential hypertension documented in this encounter Additional Health Concerns Assessment Noted Time PHQ-9 Depression Total Score: 1 11/12/19 24 11:09 AM EDT documented as of this encounter Care Teams Voice Coach Relationship Specialty Start Date End Date Chun Porras MD 230 [place] [address] PCP - General Internal Medicine 05/26/14 Lynsey Madison PharmD 230 [place] [address] Pharmacist Internal Medicine 09/26/23 documented as of this encounter
--- OUTSIDE RECORDS SUMMARY | 2024-08-09 15:49 | XMS_ITS | Encounter Summary ---
Author Organization [employer] Address [address] [facility] [address] [place] [address] Care Team Providers Care Airline Pilot Name Role Phone Chun Porras MD Primary Care Provide r Lynsey Madisno PharmD Unavailable [phone] Reason for Visit * Reason Comments Med Refill Encounter Details Date Type Department Care Team ([facility] st Contact Info) Description 11/14/2023 Refill [facility] MEDICINE 230 [place] [address] Chun Porras MD 230 [place] [address] Chronic midline low back pain without sciatica Social History Tobacco Use Types Packs/Day Years [...] your housing situation today? I have angelica dacia 11/04/[address] you li [...] Description 08/21/2024 10:30 AM EST Clinical Support [facility] MEDICINE [address] [place] [address] Maritza Mejia, SANDRA 505 [place] [address] 09/10/2024 11:30 AM EST Office Visit [facility] MEDICINE [address] [place] [address] Chun Porras MD [address] [place] [address] documented as of this encounter Goals Goal Patient Goal Type Associated Problems Recent Progress Patient-Stated? Author Blood Pressure < 140/90 Blood Pressure Essential hypertension 126/72(2023 5:58 PM EST) No Lynsey Madison, PharmD documented as of this encounter Visit Diagnoses Diagnosis Chronic midline low back pain without sciatica documented in this encounter Additional Health Concerns Assessment Noted Time PHQ-9 Depression Total Score: 1 11/12/19 24 11:09 AM EDT documented as of this encounter Care Teams Airline Pilot Relationship Specialty Start Date End Date Chun Porras MD [address] [place] [address] PCP - General Internal Medicine 05/26/14 Lynsey Madison, Sherwin [address] [place] [address] Pharmacist Internal Medicine 09/26/23 documented as of this encounter
--- OUTSIDE RECORDS SUMMARY | 2024-08-09 15:49 | XMS_ITS | Encounter Summary ---
Author Organization [employer] Address [address] [facility] [address] [place] [address] Care Team Providers Care Immigration Consultant Name Role Phone Chun Porras MD Primary Care Provide r Lynsey Madison PharmD Unavailable [phone] Reason for Visit * Reason Comments Med Refill Encounter Details Date Type Department Care Team ([facility] st Contact Info) Description 04/21/2023 Refill [facility] MEDICINE 230 [place] [address] Name, MD Cristhian 230 [place] [address] Essential hypertension Social History Tobacco Use Types Packs/Day Years Used Date Smoking Tobacco: Never Passive Smoke Exposure: Never Smokeless Tobacco: Never Alcohol Use Standard Drinks/Week Comments Not Currently 0 (1 standard drink = 0.6 oz pur e alcohol) Depression Answer Date Recorded Patient Health Questionnaire-9 Score 3 07/06/2022 Housing Stability Answer Date Recorded What is your housing situation today? I have angelica pederson 04/21/[address] you li ve. Do you have problems with any of the following? None of the above 04/21/2023 Food Insecurity Answer Date Recorded Within the past 12 months, y ou worried that your food would run out before you got money to buy more: Never True 04/21/2023 Within the past 12 months,th e food you bought just didn't last and you didn't have enough money to get more: Never True 02/2023 Transportation Answer Date Recorded In the past 12 months, has l ack of transportation kept you from medical appts, meetings, work or from getting things needed for daily living? No 04/21/2023 Utilities Answer Date Recorded In the past 12 months, has t he electric, gas, oil or water company threatened to shut off services in your home? No 04/21/2023 Depression Answer Date Recorded Patient Health Questionnaire-2 [...] Description 08/21/2024 10:30 AM EST Clinical Support [address] [address] Maritza Mejia RN 505 [place] [address] 09/10/2024 11:30 AM EST Office Visit [facility] MEDICINE [address] [place] [address] Chun Porras MD [address] [place] [phone] documented as of this encounter Visit Diagnoses Diagnosis Essential hypertension Unspecified essential hypertension documented in this encounter Additional Health Concerns Assessment Noted Time PHQ-9 Depression Total Score: 3 07/06/20 22 11:00 AM EST documented as of this encounter Care Teams Immigration Consultant Relationship Specialty Start Date End Date Chun Porras MD [address] [place] [address] PCP - General Internal Medicine 05/26/14 Lynsey Madison PharmD [address] [place] [address] Pharmacist Internal Medicine 09/26/23 documented as of this encounter
--- OUTSIDE RECORDS SUMMARY | 2024-08-09 15:49 | XMS_ITS | Encounter Summary ---
Author Organization [employer] Address [address] [facility] [address] 7t [place] [address] Care Team Providers Care Bridal Stylist Sales Consultant Name Role Phone Chun Porras MD Primary Care Provide r Lynsey Madison PharmD Unavailable [phone] Reason for Visit * Reason Comments Med Refill Encounter Details Date Type Department Care Team ([facility] st Contact Info) Description 09/29/2023 Refill [facility] MEDICINE 230 [place] [address] Chun Porras MD 230 [place] [address] Type 2 diabetes mellitus without complication, unspecified whether prison insulin use ([facility] Social History Tobacco Use Types Packs/Day Years Used Date Smoking Tobacco: Never Passive Smoke Exposure: Never Smokeless Tobacco: Never Alcohol Use Standard Drinks/Week Comments Not Currently 0 (1 standard drink = 0.6 oz pur e alcohol) Depression Answer Date Recorded Patient Health Questionnaire-9 Score 3 07/06/2022 Housing Stability Answer Date Recorded What is your housing situation today? I have angelicacarl pederson 05/03/[address] you [...] Description 08/21/2024 10:30 AM EST Clinical Support [facility] MEDICINE [address] [place] [address] Maritza Mejia RN 505 [place] [address] 09/10/2024 11:30 AM EST Office Visit [facility] MEDICINE [address] [place] [address] Chun Porras MD [address] [place] [address] documented as of this encounter Goals Goal Patient Goal Type Associated Problems Recent Progress Patient-Stated? 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
--- OUTSIDE RECORDS SUMMARY | 2024-08-09 15:49 | XMS_ITS | Encounter Summary ---
Author Organization [employer] Address [address] [facility] [address] 7[address] [place] [address] Care Team Providers Care Air Intelligence Officer Name Role Phone Chun Porras MD Primary Care Provide r Lynsey Madison PharmD Unavailable [phone] Reason for Visit * Reason Comments Med Refill Encounter Details Date Type Department Care Team ([facility] st Contact Info) Description 02/17/2024 Refill [facility] [address] [place] [address] Chun Porras MD 230 [place] [address] Chronic midline low back pain without sciatica [...] Description 08/21/2024 10:30 AM EST Clinical Support [facility] MEDICINE [address] [place] [address] Maritza Mejia RN 505 [place] [address] 09/10/2024 11:30 AM EST Office Visit [facility] MEDICINE [address] [place] [address] Chun Porras MD [address] [place] [address] documented as of this encounter Goals Goal [...] documented as of this encounter Care Teams Air Intelligence Officer Relationship Specialty Start Date End Date Chun Porras MD [address] [place] [address] PCP - General Internal Medicine 05/26/14 Lynsey Madison, Sherwin [address] [place] [address] Pharmacist Internal Medicine 09/26/23 documented as of this encounter
--- OUTSIDE RECORDS SUMMARY | 2024-08-09 15:49 | XMS_ITS | Encounter Summary ---
Author Organization [employer] Address [address] [facility] [address] [place] [address] Care Team Providers Care Ship Boss Name Role Phone Chun Porras MD Primary Care Provide r Lynsey Madison PharmD Unavailable [phone] Reason for Visit * Reason Comments Med Refill Encounter Details Date Type Department Care Team ([facility] st Contact Info) Description 10/18/2023 Refill [facility] MEDICINE 230 [place] [address] Chun Porras MD 230 [place] [address] Essential hypertension Social History Tobacco Use Types [...] Description 08/21/2024 10:30 AM EST Clinical Support [facility] MEDICINE [address] [place] [address] Maritza Mejia RN 505 [place] [address] 09/10/2024 11:30 AM EST Office Visit [facility] MEDICINE [address] [place] [address] Chun Porras MD [address] [place] [address] documented as of this encounter Goals Goal Patient Goal Type Associated Problems Recent Progress Patient-Stated? Author Blood Pressure < 140/90 Blood Pressure Essential hypertension 126/72(2023 5:58 PM EST) No Lynsey Madison, Sherwin documented as of this encounter Visit Diagnoses Diagnosis Essential hypertension Unspecified essential hypertension documented in this encounter Additional Health Concerns Assessment Noted Time PHQ-9 Depression Total Score: 3 07/06/20 22 11:00 AM EST documented as of this encounter Care Teams Ship Boss Relationship Specialty Start Date End Date Chun Porras MD [address] [place] [address] PCP - General Internal Medicine 05/26/14 Lynsey Madison, MichaelD [address] [place] [phone] Pharmacist Internal Medicine 09/26/23 documented as of this encounter
--- OUTSIDE RECORDS SUMMARY | 2024-08-09 15:49 | XMS_ITS | Encounter Summary ---
Author Organization [employer] Address [address] [facility] [address] 7t [place] [address] Care Team Providers Care Can Stacker Name Role Phone Chun Porras MD Primary Care Provide r Lynsey Madison PharmD Unavailable [phone] Reason for Visit * Reason Comments Med Refill Encounter Details Date Type Department Care Team ([facility] st Contact Info) Description 04/25/2023 Refill [facility] MEDICINE 230 [place] [address] Name, MD Cristhian 230 [place] [address] Essential hypertension Social History Tobacco Use Types [...] Description 08/21/2024 10:30 AM EST Clinical Support [address] [address] Maritza Mejia RN 505 [place] [address] 09/10/2024 11:30 AM EST Office Visit [facility] MEDICINE [address] [place] [address] Chun Porras MD [address] [place] [address] documented as of this encounter Visit Diagnoses Diagnosis Essential hypertension Unspecified essential hypertension documented in this encounter Additional Health Concerns Assessment Noted Time PHQ-9 Depression Total Score: 3 07/06/20 22 11:00 AM EST documented as of this encounter Care Teams Can Stacker Relationship Specialty Start Date End Date Chun Porras MD [address] [place] [address] PCP - General Internal Medicine 05/26/14 Lynsey Madison PharmD [address] [place] [address] Pharmacist Internal Medicine 09/26/23 documented as of this encounter
--- OUTSIDE RECORDS SUMMARY | 2024-08-09 15:49 | XMS_ITS | Encounter Summary ---
Author Organization [employer] Address [address] [facility] [address] 7[address] [place] [address] Care Team Providers Care Computer Game Programmer Name Role Phone Chun Porras MD Primary Care Provide r Lynsey Madison PharmD Unavailable [phone] Reason for Visit * Reason Comments Med Refill Encounter Details Date Type Department Care Team ([facility] st Contact Info) Description 04/23/2023 Refill [facility] MEDICINE [address] [place] [address] Chun Porras MD 230 [place] [address] Benign prostatic hyperplasia with lower urinary tract symptoms Social History Tobacco Use Types Packs/Day Years [...] Description 08/21/2024 10:30 AM EST Clinical Support [facility] [address] [place] [address] Maritza Mejia RN 505 [place] [address] 09/10/2024 11:30 AM EST Office Visit [facility] [address] [place] [address] Chun Porras MD [address] [place] [address] documented as of this encounter Visit Diagnoses Diagnosis Benign prostatic hyperplasia with lower urinary tract symptoms documented in this encounter Additional Health Concerns Assessment Noted Time PHQ-9 Depression Total Score: 3 07/06/20 22 11:00 AM EST documented as of this encounter Care Teams Computer Game Programmer Relationship Specialty Start Date End Date Chun Porras MD [address] [place] [address] PCP - General Internal Medicine 05/26/14 Lynsey Madison PharmD [address] [place] [address] Pharmacist Internal Medicine 09/26/23 documented as of this encounter
--- OUTSIDE RECORDS SUMMARY | 2024-08-09 15:49 | XMS_ITS | Encounter Summary ---
Author Organization [employer] Address [address] [facility] [address] [place] [address] Care Team Providers Care [employer] Physical Education Teacher Name Role Phone Chun Porras MD Primary Care Provide r Lynsey Madison PharmD Unavailable [phone] Reason for Visit * Reason Comments Med Refill Encounter Details Date Type Department Care Team ([facility] st Contact Info) Description 08/22/2023 Refill [facility] MEDICINE 230 [place] [address] Colleen Lou FNP 230 [place] [address] Chronic obstructive pulmonary disease with (acute) exacerbation (CMS/HCC) Social History Tobacco Use Types Packs/Day Years [...] Description 08/21/2024 10:30 AM EST Clinical Support [facility] MEDICINE [address] [place] [address] Maritza Mejia RN 505 [place] [address] 09/10/2024 11:30 AM EST Office Visit [facility] MEDICINE [address] [place] [address] Chun Porras MD [address] [place] [address] documented as of this encounter Goals Goal Patient Goal Type Associated Problems Recent Progress Patient-Stated? Author Blood Pressure < 140/90 Blood Pressure Essential hypertension 126/72(2023 5:58 PM EST) No Lynsey Madison, PharmD documented as of this encounter Visit Diagnoses Diagnosis Chronic obstructive pulmonary disease with (acute) exacerbation (CMS/HCC) documented in this encounter Additional Health Concerns Assessment Noted Time PHQ-9 Depression Total Score: 3 07/06/20 22 11:00 AM EST documented as of this encounter Care Teams High School Physical Education Teacher Relationship Specialty Start Date End Date Chun Porras MD [address] [place] [address] PCP - General Internal Medicine 05/26/14 Lynsey Madison, PharmD 230 [place] [address] Pharmacist Internal Medicine 09/26/23 documented as of this encounter
--- OUTSIDE RECORDS SUMMARY | 2024-08-09 15:49 | XMS_ITS | Encounter Summary ---
Author Organization [employer] Address [address] [place] [address] Care Team Providers Care Miller Rod Mill Name Role Phone Chun Porras MD Primary Care Provide r Lynsey Madison PharmD Unavailable [phone] Reason for Visit * Reason Comments Med Refill Encounter Details Date Type Department Care Team ([facility] st Contact Info) Description 07/20/2022 Refill [facility] [address] [place] [address] Chun Porras MD [address] [place] [address] Chronic midline low back pain without sciatica Social History Tobacco Use Types Packs/Day Years Used Date Smoking Tobacco: Never Smokeless Tobacco: Never Alcohol Use Standard Drinks/Week Comments Not Currently 0 (1 standard drink = 0.6 oz pur e alcohol) Depression Answer Date Recorded Patient Health Questionnaire-9 Score 3 07/06/2022 Depression Answer Date Recorded Patient Health Questionnaire-2 Score 0 07/06/2022 Sex and Gender Information Value Date Recorded Sex Assigned at Male 05/14/2022 10:26 AM EDT Legal Sex Male 10:26 AM EDT Gender Identity Male 05/14/2022 10:26 AM EDT Sexual Orientation Straight 05/14/2022 10 :26 AM EDT COVID-19 Exposure Response Date Recorded In the last 10 days, have yo u been in contact with someone who was confirmed or suspected to have Coronavirus/COVID-19? No / Unsure 07/06/2022 10:46 AM EST documented as of this encounter Plan of Treatment Upcoming Encounters Date Type Department Care Team (Late st Contact Info) Description 08/21/2024 10:30 AM EST Clinical Support [facility] [address] [place] [phone] Maritza Mejia, RN [address] [place] [address] 09/10/2024 11:30 AM EST Office Visit [facility] [address] [place] [phone] Chun Porras MD [address] [place] [phone] documented as of this encounter Visit Diagnoses Diagnosis Chronic midline low back pain without sciatica documented in this encounter Additional Health Concerns Assessment Noted Time PHQ-9 Depression Total Score: 3 07/06/20 22 11:00 AM EST documented as of this encounter Care Teams Miller Rod Mill Relationship Specialty Start Date End Date Chun Porras MD [address] [place] [phone] PCP - General Internal Medicine 05/26/14 Lynsey Madison PharmD [address] [place] [phone] Pharmacist Internal Medicine 09/26/23 documented as of this encounter
--- OUTSIDE RECORDS SUMMARY | 2024-08-09 15:49 | XMS_ITS | Encounter Summary ---
Author Organization [employer] Address [address] [place] [address] Care Team Providers Care Payroll Technician Name Role Phone Chun Porras MD Primary Care Provide r Lynsey Madison PharmD Unavailable [phone] Reason for Visit * Reason Comments Med Refill Encounter Details Date Type Department Care Team ([facility] st Contact Info) Description 07/04/2023 Refill [facility] [address] [place] [address] Chun Porras MD [address] [place] [address] Type 2 diabetes mellitus without complication, unspecified whether assisted insulin use ([facility]) Social History Tobacco Use Types Packs/Day Years [...] Description 08/21/2024 10:30 AM EST Clinical Support [facility] [address] [place] [phone] Maritza Mejia RN [address] [place] [address] 09/10/2024 11:30 AM EST Office Visit [facility] [address] [place] [phone] Chun Porras MD [address] [place] [phone] documented as of this encounter Visit Diagnoses Diagnosis Type 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
--- OUTSIDE RECORDS SUMMARY | 2024-08-09 15:49 | XMS_ITS | Encounter Summary ---
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 without complication, 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
--- OUTSIDE RECORDS SUMMARY | 2024-08-09 15:49 | XMS_ITS | Clinical Summary ---
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 022 Active Ventolin HFA 108 (90 Base) MCG/ACT inhalerIndication s:Pulmonary emphysema, unspecified emphysema type (CMS/HCC) INHALE 2 PUFFS BY MOUTH EVERY 4 TO 6 HOURS NEEDED 18 g 1 023 Active albuterol (2.5 MG/3ML) 0.083% nebulizer solutionIndicatio ns:Centrilobular emphysema (CMS/HCC) INHALE 1 AMPULE USING A NEBULIZER THREE TIMES DAILY NEEDED 90 mL 3 023 Active Trelegy Ellipta 200-62.5-25 MCG/ACT aerosol powder Inhale 1 puff in the morning. 023 Active montelukast (Singulair) 10 MG tablet 023 Active Blood Glucose Monitoring Suppl (FreeStyle Lite) w/Device kit 1 kit 3 times daily. 1 kit 023 Active finasteride (Proscar) 5 MG tablet Take 1 tablet (5 mg) by mouth in the morning. 30 tablet 5 023 Active Additional Information Patient not taking.Reported on 08/22/2023 meloxicam (Mobic) 15 MG tablet TAKE 1 TABLET BY MOUTH ONCE DAILY NEEDED FOR PAIN Active terazosin (Hytrin) 5 MG capsule Take 5 mg by mouth at bedtime. Active atorvastatin (Lipitor) 40 MG tabletIndications :Mixed hyperlipidemia Take 1 tablet (40 mg) by mouth in the morning. 90 tablet 3 024 2024 Active glucose blood (FREESTYLE LITE) test stripIndications: Type 2 diabetes mellitus without complication, unspecified whether halfway insulin use ([facility]) TEST BLOOD SUGAR TWICE DAILY 100 strip 11 Active Oral Medication Containers misc USE DIRECTED Active omeprazole (PriLOSEC) [address] capsuleIndication s:Gastroesophagea l reflux disease without esophagitis Take 1 capsule (40 mg) by mouth before breakfast and before evening meal. 60 capsule 2 Active Aspirin EC Adult Low Dose 81 MG EC tabletIndications :Type 2 diabetes mellitus without complication, unspecified whether terminal manager insulin use ([facility]) TAKE 1 TABLET BY MOUTH EVERY MORNING 90 tablet 1 024 Active amLODIPine (Norvasc) 10 MG tabletIndications :Essential hypertension TAKE 1 TABLET BY MOUTH EVERY MORNING 90 tablet 1 024 Active [facility] Gas Relief Ultra Strength 180 MG capsule TOME 1 C PSULA POR V A ORAL CUATRO VECES AL D A AFTER MEALS Active ramelteon (Rozerem) 8 MG tablet Take 8 mg by mouth at bedtime. Active ibuprofen 800 MG tablet Take 800 mg by mouth every 8 (eight) hours if needed. Active metFORMIN XR (Glucophage-XR) 500 MG 24 hr tabletIndications :Type 2 diabetes mellitus without complication, unspecified whether terminal manager insulin use ([facility]) TAKE 2 TABLETS BY MOUTH ONCE DAILY IN THE MORNING and TAKE 1 TABLET BY MOUTH AT BEDTIME 270 tablet 1 Active Viagra 100 MG tabletIndications :Erectile dysfunction, unspecified erectile dysfunction type TAKE 1 TABLET 1 HOUR BEFORE SEXUAL RELATIONS ONCE DAILY NEEDED. 10 tablet 024 Active ketoconazole (NIZOral) 2 % shampoo Apply topically 2 (two) times a week. 120 mL 3 Active cetirizine (ZyrTEC) 10 MG tablet Take 1 tablet (10 mg) by mouth Once per day. 30 tablet 5 024 2024 Active traMADol (Ultram) 50 MG tabletIndications :Chronic midline low back pain without sciatica Take 1 tablet (50 mg) by mouth every 8 (eight) hours if needed for severe pain. 84 tablet Active metoprolol tartrate (Lopressor) 50 MG tabletIndications :Essential hypertension TAKE 1 TABLET BY MOUTH TWICE DAILY IN THE MORNING AND IN THE EVENING WITH FOOD 180 tablet Active TRUEplus Lancets 33G miscIndications:T ype 2 diabetes mellitus without complication, unspecified whether halfway insulin use ([facility]) TEST BLOOD SUGAR TWICE DAILY 100 each 5 025 Active TRUEplus Lancets 33G miscIndications:T ype 2 diabetes mellitus without complication, unspecified whether halfway insulin use ([facility]) TEST BLOOD SUGAR TWICE DAILY 100 each 5 024 2024 Discontinued metoprolol tartrate (Lopressor) 50 MG tabletIndications :Essential hypertension TAKE 1 TABLET BY MOUTH TWICE DAILY IN THE MORNING AND IN THE EVENING WITH FOOD 180 tablet 024 2023 Discontinued traMADol (Ultram) 50 MG tabletIndications :Chronic midline low back pain without sciatica Take 1 tablet (50 mg) by mouth every 8 (eight) hours if needed for severe pain. 84 tablet 024 2023 Discontinued(R eorder (will not trigger notification to Pharmacy)) Active Problems Problem Noted Date Diagnosed Date Seborrheic dermatitis 06/24/2024 Odynophagia 11/12/2023 Assessment & Plan (06/09/2024 2:08 PM EST): Pt with a history of heavy smoking and persistent odynophagia Barium Swallow showed IMPRESSION: 1. Trace laryngeal penetration with thick barium. No subglottic aspiration. 2. Small anterior cervical web just below the hypopharynx. This is unlikely contributing to the patient's symptoms. 3. Mildly disorganized esophageal peristalsis. 4. Very small type I hiatal hernia with mild gastroesophageal reflux. 5. Limited evaluation of the gastric mucosa due to lack of distention from poor tolerance of the effervescent granules. The gastric rugal folds have a thickened appearance, which may represent gastritis. 6. Large diverticulum in the distal third segment of the duodenum. Pt was referred for ENT evaluation for laryngoscopy. Had laryngoscopy: 12/31/2023 Dr Moon was unremarkable per ENT notes Assessment & Plan (02/04/2024 2:09 PM EDT): Pt with a history of heavy smoking and persistent odynophagia Barium Swallow showed IMPRESSION: 1. Trace laryngeal penetration with thick barium. No subglottic aspiration. 2. Small anterior cervical web just below the hypopharynx. This is unlikely contributing to the patient's symptoms. 3. Mildly disorganized esophageal peristalsis. 4. Very small type I hiatal hernia with mild gastroesophageal reflux. 5. Limited evaluation of the gastric mucosa due to lack of distention from poor tolerance of the effervescent granules. The gastric rugal folds have a thickened appearance, which may represent gastritis. 6. Large diverticulum in the distal third segment of the duodenum. Pt was referred for ENT evaluation for laryngoscopy. Pt tells me he was seen and he is going back tomorrow records requested And GI evaluation for EGD Assessment & Plan (11/12/2023 11:35 AM EDT): Pt with a history of heavy smoking and persistent odynophagia Plan: Barium Swallow ENT evaluation for laryngoscopy GI evaluation for EGD Skin lesion of face 11/12/2023 Assessment & Plan (11/12/2023 11:40 AM EDT): Patient with a small hyperpigmented skin lesion left upper eyebrow area. Seems to have benign features. Pt overly concerned would like to have a second opinion Will refer to our [facility] Derm clinic Intermittent chest pain 03/07/2023 Assessment & Plan (06/09/2024 2:20 PM EST): Pt with c/o intermittent chest discomfort on and off. Previous EKG showed: NSR No acute st t changes Pt was seen by Cardiology 01/13/2024 for evaluation , they recommended a coronary CTA. Seen in the ER recently diagnosed with chest wall pain. Of note pt had a recent EGD that showed gastritis. He is also under the care of Pulmonology who recently ordered a CT coronaries: That showed: -Minimal stenosis (1-24%) in the proximal and mid LAD -Minimal stenosis (1-24%) in the distal Lcx -The right ventricle is severely dilated, measuring up to 5.6 cm at the base of diastole. Patient will follow up with Cardiology Assessment & Plan (02/04/2024 1:58 PM EDT): Pt with c/o intermittent chest discomfort on and off for months. Previous EKG showed: NSR No acute st t changes Pt was seen by Cardiology 01/13/2024 for evaluation , they recommended a coronary CTA Assessment & Plan (11/12/2023 11:27 AM EDT): Pt with c/o intermittent chest discomfort on and off for months. Previous EKG showed: NSR No acute st t changes Pt was seen by Cardiology 07/2023 for evaluation for out[patient stress test given numerous risk factors Assessment & Plan (03/07/2023 3:43 PM EDT): Pt with c/o intermittent chest discomfort on and off for months. EKG today: NSR No acute st t changes Plan: Cardiology evaluation for out[patient stress test given numerous risk factors Unexplained night sweats 12/20/2022 Assessment & Plan (12/20/2022 10:41 AM EDT): Pt here with c/o night sweats at night for months Unclear etiology Plan: CBC, LDH, TSH, ESR, HIV and Hep C panel Weight loss 11/20/2022 Assessment & Plan (03/07/2023 11:38 AM EDT): Patient previously seen at our [facility] by Dr Praveen Wagoner with a concern of BRBPR and weight loss. 30 lbs non-intentional weight loss in 2 years Pt's weight since then has improved back up to 173 lbs Colonoscopy (07/2020) showed internal hemorrhoids and 2 rectal polyps (hyperplastic and serrated adenoma without high-grade dysplasia) Also with history of lung nodule Chest CT (05/2019) showed RUL 1.3cm nodule (history of RUL bleb resection) Subsequent PET CT (10/2019) showed RLL 9mm subpleural nodule without FDG activity; no FDG avid LAD PSA [address] of Abdomen to rule out pancreatic malignancy 02/08/2023 showed: IMPRESSION: 1. No acute intra-abdominal process seen. 2. Small cyst midpole left kidney. No radiopaque urolith or hydronephrosis. 3. Tiny hypodensity in the left hepatic lobe, probable cyst. 4. Mild degenerative disc changes L5-S1 disc level with moderate ventral spondylosis L4-L5, L5-S1, L1-L2, and L2-L3 disc levels. Since weight continues to go up will continue to monitor. Assessment & Plan (12/20/2022 10:35 AM EDT): Patient previously seen here at our [facility] by Dr Praveen Wagoner with a concern of BRBPR and weight loss. 30 lbs non-intentional weight loss in 2 years Pt's weight since then has stabilized Reports decreased appetite, but no abdominal pain, food-sticking symptoms or swallowing difficulty Colonoscopy (07/2020) showed internal hemorrhoids and 2 rectal polyps (hyperplastic and serrated adenoma without high-grade dysplasia) Also with history of lung nodule Chest CT (05/2019) showed RUL 1.3cm nodule (history of RUL bleb resection) Subsequent PET CT (10/2019) showed RLL 9mm subpleural nodule without FDG activity; no FDG avid LAD PSA 2021 Normal Plan: Obtain CT of Abdomen to rule out pancreatic malignancy Assessment & Plan (11/20/2022 2:52 PM EDT): Patient previously seen here at our [facility] by Dr Praveen Wagoner with a concern of BRBPR and weight loss. 30 lbs non-intentional weight loss in 2 years Pt's weight since then has stabilized Reports decreased appetite, but no abdominal pain, food-sticking symptoms or swallowing difficulty Colonoscopy (07/2020) showed internal hemorrhoids and 2 rectal polyps (hyperplastic and serrated adenoma without high-grade dysplasia) Also with history of lung nodule Chest CT (05/2019) showed RUL 1.3cm nodule (history of RUL bleb resection) Subsequent PET CT (10/2019) showed RLL 9mm subpleural nodule without FDG activity; no FDG avid LAD PSA 2021 Normal Pt today reports he feels well in that regard Thoracic spondylosis with myelopathy 11/20/2022 Assessment & Plan (03/07/2023 11:44 AM EDT): Patient is here for a follow up S/p Cervical laminoplasty C3-C6 with Plate fixation by Dr Cardona Doing well, Assessment & Plan (12/20/2022 10:52 AM EDT): Patient is here for a follow up S/p 2 weeks ago Doing well, has an appointment for follow up today Assessment & Plan (11/20/2022 1:30 PM EDT): Patient is under the care of spine surgeon Dr Cardona. Pt was seen here by Ирина SWENSON and was referred to [employer] Developer Dr Meyer for Pulmonary clearance. Pt was seen and has already been scheduled for Surgery November Gastroesophageal reflux disease without esophagi tis 11/20/2022 Assessment & Plan (06/09/2024 2:13 PM EST): Previous visit with c/o GERD On Omeprazole, BID Dietary recommendations were discussed Seen by GI , s/p EGD107/21/2023 that showed: erosive gastritis schatzki ring possible barretts patulous GEJ Pt tells me he was diagnosed with H.pilory and is currently finishing the second week of treatment and has a follow up with GI after he is done. Assessment & Plan (02/04/2024 2:26 PM EDT): Previous visit with c/o GERD I recommended an UGI series to r/o PUD. Pt did not have it done. Pt was referred to GI referral for consideration of EGD. unfortunately he did not go and Dr. Jaquez discharged him from his practice Last visit he told me that the Omeprazole resolved the problem Patient was referred back to GI In the meantime continue Omeprazole, Increase dose to BID since pt tells me his symptoms come back once the morning dose wears off. Dietary recommendations were discussed Seen by GI 12/24/2023 Assessment & Plan (11/12/2023 11:37 AM EDT): Previous visit with c/o GERD I recommended an UGI series to r/o PUD. Pt did not have it done. Pt was referred to GI referral for consideration of EGD. unfortunately he did not go and Dr. Jaquez discharged him from his practice Today patient tells me that the Omeprazole resolved the problem Plan: refer back to GI hopefully this time they will agree to see him In the meantime continue Omeprazole, Increase dose to BID since pt tells me his symptoms come back once the morning dose wears off. Dietary recommendations were discussed Assessment & Plan (07/02/2023 1:05 PM EST): Televisit previous visit with c/o GERD I recommended an UGI series to r/o PUD. Pt did not have it done. Pt was referred to GI referral for consideration of EGD. unfortunately he did not go and Dr. Jaquez discharged him from his practice Today patient tells me that the Omeprazole resolved the problem 4 month f/u Assessment & Plan (11/20/2022 2:47 PM EDT): Pt here for a f/u previous visit with c/o GERD I recommended an UGI series to r/o PUD. Pt did not have it done. Pt was referred to GI referral for consideration of EGD. appointment scheduled for June, unfortunately he did not go and Dr. Jaquez discharged him from his practice. pt currently not complaining 3 month f/u Sebaceous cyst 11/20/2022 Assessment & Plan (11/20/2022 1:36 PM EDT): Pt with large sebaseous cyst on his back, wants to have it escised. He also has what appears to be a small lipoma on the left side approx 2 x 2 cm. Plan: Referral to Dr Gale general surgeon Preventative health care 11/20/2022 Overview (08/22/2023): History: (Updated 08/22/2023) - Patient transferred medications from [facility] to [facility] and was not pleased with results. He has now transferred back but would like to start medboxes again. Medication review completed with patient today. Assessment & Plan (08/22/2023 11:44 AM EST): Assessment: - Patient requests medboxes for medication management - Patient requests sleep study Plan: - RESTART medboxes - Patient request for sleep study referral sent to PCP Assessment & Plan (11/20/2022 2:44 PM EDT): PSA 04/10/2022 Normal Colonoscopy: 11/29/2014 Tubular adenoma. Pt had a repeat in 07/27 2020 showed internal Hemorrhoids, 5 yr f/u recommended Dr Stephanie Hernandez Other male erectile dysfunction 11/20/2022 Assessment & Plan (11/20/2022 2:48 PM EDT): Pt with c/o this Testosterone free and total were within normal limits Trial of Viagra was given last visit. and was successful. Stress incontinence of urine 11/20/2022 Assessment & Plan (11/12/2023 11:26 AM EDT): Pt evaluated by Urology , last seen 07/2023 Dr Lee His impression was that patient had mild BPH Assessment & Plan (11/20/2022 2:49 PM EDT): Pt evaluated by Urology 10/27/2020 his impression was that patient had mild BPH and recommended a trial of Tamsulosin 0.4 mg po qhs and f/u with him in 3 months History of incontinence of feces 11/20/2022 Assessment & Plan (11/20/2022 2:50 PM EDT): Pt with previous c/o intermittent partial fecal incontinence, on a previous exam he had somewhat diminished rectal tone Pt had an MRI of Lumbar spine given combination of new onset of fecal incontinence and erectile dysfunction to r/o cauda equina. MRI back in 2018 did not show evidence of cauda equina. Pt's symptomatology had improved, but today he tells me that it came back, but not is complete fecal incontinence accompanied by Urinary incontinence as well. Pt declined a rectal exam. he denies any other associated symptoms other than his chronic severe low back pain Repeat MRI of his LS spine showed: IMPRESSION: Stable moderate disc degeneration at L5-S1. Engorgement of the ventral epidural venous plexus mildly impresses upon the thecal sac, as on prior imaging. Epidural lipomatosis also continues to moderately distort the thecal sac. Moderate foraminal narrowing with endplate spurring and bulging disc abutting the extraforaminal L5 nerve roots. Stable retrosubluxation and central disc protrusion at L3-L4. Milder degenerative changes at remaining levels. He was evaluated by Gastroenterology who diagnosed him with IBS and diarrhea and treated him with Dicyclomine 20 mf TID with good results. Today he tells me his symptoms have resolved Generalized anxiety disorder 07/01/2022 Assessment & Plan (12/20/2022 10:55 AM EDT): under the care of Dr Woods Pt taking his medications as prescribed by Dr Woods On a previous visit he admitted to buying Klonopin [address], I advised him to discuss with his psychiatrist. Back then he told me he had been buying it for the past 9 years Assessment & Plan (11/20/2022 1:21 PM EDT): under the care of Dr Woods Pt taking his medications as prescribed by Dr Woods Pt also admits he buys Klonopin [address], I have advised him to discuss with his psychiatrist. he states he has been buying it for the past 9 years Type 2 diabetes mellitus without complication Overview (08/22/2023): Pharmacotherapy: (udpated 08/22/2023) - Metformin ER 500mg 2 tablets AM an 1 tablet PM (TDD: 1500mg) ASA?: Not indicated for primary prevention. Statin?: on Atorvastatin 40mg daily History: (Updated 08/22/2023) - At home BG generally well controlled Assessment & Plan (06/09/2024 2:10 PM EST): Pt here for Diabetes f/u control on a regimen of: Metformin ER 500 mg 2 tabs in am and 1 tab at PM Hgb A1c 06/09/2024: 5.9 from 6.4 Eye exam done Microalbumin ordered, not yet done Pt not on an OTONIEL inhibitor/ARB Foot check today is risk of: zero Pt reports compliance with Asa 81 mg po daily Plan: Continue current regimen Pt advised to: adhere to diabetic diet check your blood sugars regularly check your feet on a daily basis. f/u 4 months Assessment & Plan (02/04/2024 2:07 PM EDT): Pt here for Diabetes f/u control on a regimen of: Metformin ER 500 mg 2 tabs in am and 1 tab at PM Hgb A1c 02/04/2024: 6.4 Eye exam done Microalbumin ordered, not yet done Pt not on an OTONIEL inhibitor/ARB Foot check today is risk of: zero Pt reports compliance with Asa 81 mg po daily Plan: Continue current regimen Pt advised to: adhere to diabetic diet check your blood sugars regularly check your feet on a daily basis. f/u 4 months Assessment & Plan (11/12/2023 11:29 AM EDT): Pt here for Diabetes f/u control on a regimen of: Metformin ER 500 mg 2 tabs in am and 1 tab at PM Hgb A1c 11/12/2023: 6.2 Eye exam done Microalbumin ordered, not yet done Pt not on an OTONIEL inhibitor/ARB Foot check today is risk of: zero Pt reports compliance with Asa 81 mg po daily Plan: Continue current regimen Pt advised to: adhere to diabetic diet check your blood sugars regularly check your feet on a daily basis. f/u 4 months Assessment & Plan (08/22/2023 11:55 AM EST): Assessment: - A1c is at goal of less than 7% - Due for Eye Exam Plan: - Referral sent for [facility] Optometry - Continue with current therapy and monitoring Assessment & Plan (03/07/2023 11:40 AM EDT): Pt here for Diabetes f/u control on a regimen of: Metformin ER 500 mg 2 tabs in am and 1 tab at PM Hgb A1c 12/20/2022: 6.5 Eye exam done Microalbumin ordered, not yet done Pt not on an OTONIEL inhibitor/ARB Foot check today is risk of: zero Pt reports compliance with Asa 81 mg po daily Plan: Continue current regimen Pt advised to: adhere to diabetic diet check your blood sugars regularly check your feet on a daily basis. f/u 4 months Assessment & Plan (12/20/2022 10:32 AM EDT): Pt here for Diabetes f/u control on a regimen of: Metformin ER 500 mg 2 tabs in am and 1 tab at PM Hgb A1c 12/20/2022: 6.5 Eye exam done Microalbumin ordered, not yet done Pt not on an OTONIEL inhibitor/ARB Foot check today is risk of: zero Pt reports compliance with Asa 81 mg po daily Plan: Continue current regimen Pt advised to: adhere to diabetic diet check your blood sugars regularly check your feet on a daily basis. f/u 4 months Assessment & Plan (11/20/2022 1:13 PM EDT): Pt here for Diabetes f/u control on a regimen of: Metformin ER 500 mg 2 tabs in am AND 1 TAB AT PM Hgb A1c 11/20/2022: Eye exam done Microalbumin ordered, not yet done Pt not on an OTONIEL inhibitor/ARB Foot check today is risk of: zero Pt reports compliance with Asa 81 mg po daily Plan: Pt advised to: adhere to diabetic diet check your blood sugars regularly check your feet on a daily basis. f/u 4 months Chronic low back pain 01/29/2017 Assessment & Plan (11/12/2023 11:24 AM EDT): Pt with chronic low back pain, Pt has a Hx of back pain. Pt apparently jumped off a 3rd floor 20 years ago, ? hx fractures. previous Exam showed some evidence of muscle spasm. Plain films of LS spine, and both hips. showed moderate osteoarthritis of right hip. Pt finished a course of PT Pt i\used to be under the care of [facility], last seen last 06/20/2023 Back in 06/20/2017 was referred to a surgeon ( Dr Cardona ) for consideration of surgical intervention vs spinal cord stimulator. Dr Cardona recommended a spinal fusion. surgery currently. .this was on hold due to housing instability and the fact that pt was not convinced he wants to go ahead with this. Most recent MRI of the LS spine done 07/18/2020 showed: IMPRESSION: Stable moderate disc degeneration at L5-S1. Engorgement of the ventral epidural venous plexus mildly impresses upon the thecal sac, as on prior imaging. Epidural lipomatosis also continues to moderately distort the thecal sac. Moderate foraminal narrowing with endplate spurring and bulging disc abutting the extraforaminal L5 nerve roots. Stable retrosubluxation and central disc protrusion at L3-L4. Milder degenerative changes at remaining levels. [facility] gave him a steroid injection back in June Pt has a COT contract with us.' Assessment & Plan (12/20/2022 10:53 AM EDT): Pt with chronic low back pain, Today he tells me he has an upcoming appointment in January with a different Orthopaedic surgeon Pt has a Hx of back pain. Pt apparently jumped off a 3rd floor 20 years ago, ? hx fractures. previous Exam showed some evidence of muscle spasm. Plain films of LS spine, and both hips. showed moderate osteoarthritis of right hip. Pt finished a course of PT Pt i\used to be under the care of [facility], last seen last 03/09/2019 Back in 06/20/2017 was referred to a surgeon ( Dr Cardona ) for consideration of surgical intervention vs spinal cord stimulator. Dr Cardona recommended a spinal fusion. surgery currently. .this was on hold due to housing instability and the fact that pt was not convinced he wants to go ahead with this. Most recent MRI of the LS spine done 07/18/2020 showed: IMPRESSION: Stable moderate disc degeneration at L5-S1. Engorgement of the ventral epidural venous plexus mildly impresses upon the thecal sac, as on prior imaging. Epidural lipomatosis also continues to moderately distort the thecal sac. Moderate foraminal narrowing with endplate spurring and bulging disc abutting the extraforaminal L5 nerve roots. Stable retrosubluxation and central disc protrusion at L3-L4. Milder degenerative changes at remaining levels. [facility] gave him one last Tramadol prescription and recommended we took over his prescribing. Pt has a COT contract with us.' Assessment & Plan (11/20/2022 1:21 PM EDT): Pt with chronic low back pain, Today he tells me he has an upcoming appointment in January with a different Orthopaedic surgeon Pt has a Hx of back pain. Pt apparently jumped off a 3rd floor 20 years ago, ? hx fractures. previous Exam showed some evidence of muscle spasm. Plain films of LS spine, and both hips. showed moderate osteoarthritis of right hip. Pt finished a course of PT Pt i\used to be under the care of [facility], last seen last 03/09/2019 Back in 06/20/2017 was referred to a surgeon ( Dr Cardona ) for consideration of surgical intervention vs spinal cord stimulator. Dr Cardona recommended a spinal fusion. surgery currently. .this was on hold due to housing instability and the fact that pt was not convinced he wants to go ahead with this. Most recent MRI of the LS spine done 07/18/2020 showed: IMPRESSION: Stable moderate disc degeneration at L5-S1. Engorgement of the ventral epidural venous plexus mildly impresses upon the thecal sac, as on prior imaging. Epidural lipomatosis also continues to moderately distort the thecal sac. Moderate foraminal narrowing with endplate spurring and bulging disc abutting the extraforaminal L5 nerve roots. Stable retrosubluxation and central disc protrusion at L3-L4. Milder degenerative changes at remaining levels. Previous visit he told me he couldn't take it anymore and he himself would contact Dr. Cardona to schedule a f/u for eventual surgical intervention. Today he tells me he is already scheduled to see a different orthopaedic surgeon next month, he was unable to tell me the name or address of this doctor he tells me he was referref by [facility]. I asked him to find out so I can request records [facility] gave him one last Tramadol prescription and recommended we took over his prescribing. Pt has a COT contract with us.' Essential hypertension 04/26/2015 Overview (08/22/2023): Pharmacotherapy: (Updated 08/22/2023) - Amlodipine 10mg daily - Metoprolol tartrate 50mg BID - sinus bradycardia, stable on current dose - terazosin 5mg nightly (indirect contribution. rx'd by urology) History: (Updated 08/22/2023) CDTM since Mar 2019. Sometimes doubles up his own medications in past. Losartan/HCTZ stopped in past due to REJI. Uses medboxes. BP has been stable. Influenced by pain/ spinal stenosis for which he had surgery completed 12/2022. Assessment & Plan (06/09/2024 2:04 PM EST): Patient here for a f/u bloop pressure controlled He is on a regimen of: Amlodipine 10 mg po daily and Metoprolol 50 mg po BID Plan: Continue current regimen BMP Lab Results Component Value Date NA 142 05/06/2024 NA 141 03/11/2024 K 3.9 05/06/2024 K 4.0 03/11/2024 CL 108 05/06/2024 CL 106 03/11/2024 BUN 26 (H) 05/06/2024 BUN 23 (H) 03/11/2024 CREATININE 0.98 05/06/2024 CREATININE 0.89 03/11/2024 were wnl patient advised to adhere to a low sodium diet, encouraged about medication compliance recheck in 4 months Assessment & Plan (08/22/2023 11:41 AM EST): Assessment: - BP is at goal of less than 140/90 per JNC8 guidelines Plan: - Continue with current therapy and monitoring Assessment & Plan (11/20/2022 1:15 PM EDT): Patient here for a f/u bloop pressure controlled He is on a regimen of: Amlodipine 10 mg po daily and Metoprolol 50 mg po BID previously I suspected his anxiety was playing a role Plan: Continue current regimen BMP 11/09/2022 were wnl patient advised to adhere to a low sodium diet, encouraged about medication compliance recheck in 4 months Pulmonary emphysema 04/26/2015 Overview (08/22/2023): Pharmacotherapy: (Updated 08/22/23) - Trelegy - Inhale 1 puff daily - Ventolin HFA 90 mcg 2 puffs q46h PRN - Albuterol 2.5mg via nebulization Q4H prn - Montelukast 10mg daily History: (Updated 08/22/23) - Follows with pulmonology; smokes marijuana, no cigarettes - Frequent occurrence of CP; does admit to frequent use of albuterol and has anxiety which is not treated with medication at this time; Cardiology visit noted to be unremarkable. Scheduled for f/u exercise stress test. Assessment & Plan (06/09/2024 2:04 PM EST): Here for a f/u Pt has Hx of multiple spontaneous Pneumothoraxes, treated with Chest tubes in the past. Admitted to [facility] from 12/18-06/2014 because of spontaneous right pneumothorax. Treated with chest tube, and had bronchoscopy with right parietal pleurectomy, multiple wedge resections of blebs of right upper and middle lobes. kellen 1 antitrypsin was normal Pt was being followed by pulmonology at [facility], he now tells me the rebar worker left and they did not assign him with anybody else so he ran out of his inhalers most recent PFTs 04/10/2019 showed mixed mild restrictive and severe obstructive lung disease with significant bronchodilator response Pt had been on Advair 250/50 1 puff BID and Albuterol prn Pt CT chest 06/10/2019 that showed: There is a more prominent nodular opacity within the right upper lobe on image 145 of series 7 measuring up to 1.3 cm in size. Per Fleischner criteria, consider CT in 3 months or PET/CT. - New lower lobe predominant peribronchial thickening and tree-in-bud nodular opacities that may be infectious or inflammatory in etiology or that may be from aspiration, findings that can be clinically correlated. Pt CT was finally done 11/12/2019 and it was negative I have recommended to continue with his inhalers Pt was referred to Pulmonology with Dr. Meyer, he was seen last 02/21/2024 PFT showed severe COPD Assessment & Plan (11/12/2023 11:28 AM EDT): Here for a f/u Pt has Hx of multiple spontaneous Pneumothoraxes, treated with Chest tubes in the past. Admitted to [facility] from 12/18-06/2014 because of spontaneous right pneumothorax. Treated with chest tube, and had bronchoscopy with right parietal pleurectomy, multiple wedge resections of blebs of right upper and middle lobes. kellen 1 antitrypsin was normal Pt was being followed by pulmonology at [facility], he now tells me the rebar worker left and they did not assign him with anybody else so he ran out of his inhalers most recent PFTs 04/10/2019 showed mixed mild restrictive and severe obstructive lung disease with significant bronchodilator response Pt had been on Advair 250/50 1 puff BID and Albuterol prn Pt CT chest 06/10/2019 that showed: There is a more prominent nodular opacity within the right upper lobe on image 145 of series 7 measuring up to 1.3 cm in size. Per Fleischner criteria, consider CT in 3 months or PET/CT. - New lower lobe predominant peribronchial thickening and tree-in-bud nodular opacities that may be infectious or inflammatory in etiology or that may be from aspiration, findings that can be clinically correlated. Pt CT was finally done 11/12/2019 and it was negative I have recommended to continue with his inhalers Pt was referred to Pulmonology with Dr. Meyer, he was seen last 08/16/2023 PFT showed severe COPD Assessment & Plan (08/22/2023 12:05 PM EST): Assessment: - Asthma is uncontrolled per GOLD guidelines Plan: - Continue with current therapy and follow-up with pulmonology office - Goal of therapy is to reduce need for frequent albuterol use Assessment & Plan (03/07/2023 11:45 AM EDT): Here for a f/u Pt has Hx of multiple spontaneous Pneumothoraxes, treated with Chest tubes in the past. Admitted to [facility] from 12/18-06/2014 because of spontaneous right pneumothorax. Treated with chest tube, and had bronchoscopy with right parietal pleurectomy, multiple wedge resections of blebs of right upper and middle lobes. kellen 1 antitrypsin was normal Pt was being followed by pulmonology at [facility], he now tells me the rebar worker left and they did not assign him with anybody else so he ran out of his inhalers most recent PFTs 04/10/2019 showed mixed mild restrictive and severe obstructive lung disease with significant bronchodilator response Pt had been on Advair 250/50 1 puff BID and Albuterol prn Pt CT chest 06/10/2019 that showed: There is a more prominent nodular opacity within the right upper lobe on image 145 of series 7 measuring up to 1.3 cm in size. Per Fleischner criteria, consider CT in 3 months or PET/CT. - New lower lobe predominant peribronchial thickening and tree-in-bud nodular opacities that may be infectious or inflammatory in etiology or that may be from aspiration, findings that can be clinically correlated. Pt CT was finally done 11/12/2019 and it was negative I have recommended to continue with his inhalers Pt was referred to Pulmonology with Dr. Meyer, he was seen 10/26/2022 and he recommended PFTs PFTsshowed severe COPD Assessment & Plan (11/20/2022 1:35 PM EDT): Here for a f/u Pt has Hx of multiple spontaneous Pneumothoraxes, treated with Chest tubes in the past. Admitted to [facility] [place] 12/18-06/2014 because of spontaneous right pneumothorax. Treated with chest tube, and had bronchoscopy with right parietal pleurectomy, multiple wedge resections of blebs of right upper and middle lobes. kellen 1 antitrypsin was normal Pt was being followed by pulmonology at [facility], he now tells me the rebar worker left and they did not assign him with anybody else so he ran out of his inhalers most recent PFTs 04/10/2019 showed mixed mild restrictive and severe obstructive lung disease with significant bronchodilator response Pt had been on Advair 250/50 1 puff BID and Albuterol prn Pt CT chest 06/10/2019 that showed: There is a more prominent nodular opacity within the right upper lobe on image 145 of series 7 measuring up to 1.3 cm in size. Per Fleischner criteria, consider CT in 3 months or PET/CT. - New lower lobe predominant peribronchial thickening and tree-in-bud nodular opacities that may be infectious or inflammatory in etiology or that may be from aspiration, findings that can be clinically correlated. Pt CT was finally done 11/12/2019 and it was negative I have recommended to continue with his inhalers Pt was referred to Pulmonology with Dr. Meyer, he was seen 10/26/2022 and he recommended PFTs he was then going to write an addendum to clear him for surgery Tubular adenoma 12/02/2014 Assessment & Plan (11/20/2022 1:25 PM EDT): Colonoscopy: 11/29/2014 Tubular adenoma. Pt had a repeat in 07/27 2020 showed internal Hemorrhoids, 5 yr f/u recommended Dr Stephanie Hernandez Depressive disorder 07/29/2014 Assessment & Plan (12/20/2022 10:54 AM EDT): Pt with moderate depression. Under the care of [facility]. Currently on a regimen of: Clonidine 0.1 mg po qhs Pt denies Suicidal ideation at the moment. Patient denies any suicidal ideation or thoughts, Patient has crisis numbers and knows to use them if needed. Assessment & Plan (11/20/2022 1:22 PM EDT): Pt with moderate depression. Under the care of [facility]. Currently on a regimen of: Clonidine 0.1 mg po qhs Pt denies Suicidal ideation at the moment. Patient denies any suicidal ideation or thoughts, Patient has crisis numbers and knows to use them if needed. Encounters Date Type Department Care Team Description 08/09/2024 Orders Only GENERIC EXTERNAL DATA DEPARTMENT Provider, Generic External Data 07/31/2024 Refill [facility] [address] [place] [address] Simran Panda ANP Type 2 diabetes mellitus without complication, unspecified whether terminal manager insulin use ([facility]) 07/14/2024 Refill [facility] [address] [place] [address] Lynsey Madison, PharmD Essential hypertension 07/13/2024 Refill [facility] [address] [place] [address] Maritza Mejia RN Chronic midline low back pain without sciatica 07/13/2024 Telephone [facility] [address] [place] [address] Chun Porras MD 06/30/2024 Telephone [facility] [address] [place] [address] Lissett Cortes MA Aug. Recall 06/24/2024 6:20 PM EST Office Visit [facility] [address] [place] [phone] Buddy Gr MD Seborrheic dermatitis (Primary Dx) 06/15/2024 Refill [facility] [address] [place] [phone] Chun Porras MD Chronic midline low back pain without sciatica 06/09/2024 2:00 PM EST Office Visit [address] [phone] Chun Porras MD Type 2 diabetes mellitus without complication, unspecified whether halfway insulin use (CMS/HCC) (Primary Dx); Essential hypertension; Encounter for immunization; Pulmonary emphysema, unspecified emphysema type (CMS/HCC); Gastroesophageal reflux disease without esophagitis; Odynophagia; Intermittent chest pain 06/09/2024 Travel 05/28/2024 Patient Outreach [address] [address] Chun Porras MD Pre-visit Planning (SDOH screening was completed on 11/04/2023 / Message sent to team nurse ) 05/25/[address] [address] Chun Porras MD Chart Prep 05/15/2024 11:00 AM EDT Clinical Support [address] [phone] Maritza Mejia, letterer midline low back pain without sciatica 05/15/[address] [address] Maritza Mejia, SANDRA 05/15/2024 Refill [facility] [address] [place] [address] Maritza Mejia, letterer midline low back pain without sciatica 05/15/2024 Travel from Last 3 Months Immunizations Name Administration Dates Next Due Influenza injectable quadriv alent IIV4 with preservative 05/03/2016,04/26/2015 Influenza injectable quadriv alent preservative free 04/10/2022,06/13/2021,05/26/2019,07/03,06/20/2017 Influenza, High Dose Seasona l, Preservative Free 06/09/2024 Influenza, IIV3, injectable 06/14/2014 Moderna Covid-19 Vaccine 12+ 10/20/2020,09/23/19 Pfizer Covid-19 Vaccine 12+ 06/09/2024, Pfizer Covid-19 Vaccine 12+ Bivalent 05/16/2022 Pfizer Covid-19 Vaccine 12+ gloria-sucrose (Deng Cap) 12/06/2021 Pneumococcal Conjugate PCV 20 01/22/2023 Pneumococcal Polysaccharide PPSV23 08/02/2014 Rabies - IM Fibroblast Culture 02/01/2022 TD (adult), 2 Lf tetanus tox oid, preservative free, adsorbed 02/15/2022 Tdap 09/30/2014 Zoster, Recombinant 02/05/2022,12/05/2021 Social History Tobacco Use Types Packs/Day Years Used Date Smoking Tobacco: Never Passive Smoke Exposure: Never Smokeless Tobacco: Never Tobacco Cessation:Counseling Given: Not Answered Alcohol Use Standard Drinks/Week Comments Not Currently [...] Orientation Straight 05/14/2022 10 :26 AM EDT Last Filed Vital Signs Vital Sign Reading Time Taken Comments Blood Pressure 126/72 06/24/2024 5:58 PM EST Pulse 68 06/24/2024 5:58 PM EST Temperature 36.7 ??C (98 ??F) 06/24/2024 5:58 PM EST Respiratory Rate 19 06/24/2024 5:58 PM EST Oxygen Saturation 97% 06/09/2024 1:45 PM EST Inhaled Oxygen Concentration - - Weight 78.6 kg (173 lb 6 oz) 06/24/2024 5:58 PM EST Height 177.8 cm (5' 10 ) 06/24/2024 5:58 PM EST Body Mass Index 24.88 06/24/2024 5:58 PM EST Plan of Treatment Upcoming Encounters Date Type Department Care Team (Late st Contact Info) Description 08/21/2024 10:30 AM EST Clinical Support [facility] [address] [place] [phone] Maritza Mejia RN [address] [place] [address] 09/10/2024 11:30 AM EST Office Visit [facility] [address] [place] [phone] Chun Porras MD [address] [place] [phone] Health Maintenance Due Date Last Done Comments CT Colonography 1960 FIT DNA/Cologuard 1960 FIT 1960 FOBT 1960 Sigmoidoscopy 1960 Diabetes: Foot Exam 1968 Diabetes: Urine Protein Screening 1977 RSV Patients and Patients Aged 60 years or older (1 - Risk 60-74 years 1-dose series) 2018 Lipid Panel 11/10/2023 11/09/2022, 11/13, 05/26/2020 SDOH Screening 11/03/2024 11/04/2023 Depression Screening 11/11/2024 11/12/2023, 11/12/19 Diabetes: Hemoglobin A1C 12/07/2024 024, 02/04/2024, 11/12/2023, Additional history exists Alcohol/Substance Use Screening 06/09/2025 06/09/2024 Tobacco Screening 06/24/2025 06/24/2024 Colonoscopy 07/27/2025 07/27/2020 Colorectal Cancer Screening 07/27/2025 Eye Exam 01/22/2026 01/23/2024, 01/12, 01/23/2024, Additional history exists DTaP/Tdap/Td Vaccines (3 - Td or Tdap) 02/16/2032 02/15/2022, 09/30/2014 Zoster Vaccines Completed 02/05/2022, 12/05/2021 Hepatitis C Screening Completed 12/20/2022 , 08/01/2021, 06/05/2021 Pneumococcal Vaccine: 65+ Years Completed 01/22/2023, 08/02/2014 COVID-19 Vaccine Completed 06/09/2024, 08/2021, 12/06/2021, Additional history exists Influenza Vaccine Completed 06/09/2024, , 06/13/2021, Additional history exists HIB Vaccines Aged Out No longer eligi ble based on patient's age to complete this topic HPV Vaccines Aged Out No longer eligi ble based on patient's age to complete this topic Hepatitis A Vaccines Aged Out No long er eligible based on patient's age to complete this topic Hepatitis B Vaccines Aged Out No long er eligible based on patient's age to complete this topic IPV Vaccines Aged Out No longer eligi ble based on patient's age to complete this topic Meningococcal Vaccine Aged Out No clint atul eligible based on patient's age to complete this topic RSV under 20 months Aged Out No longe r eligible based on patient's age to complete this topic Rotavirus Vaccines Aged Out No longer eligible based on patient's age to complete this topic Goals Goal Patient Goal Type Associated Problems Recent Progress Patient-Stated? Author Blood Pressure < 140/90 Blood Pressure Essential hypertension 126/72(2023 5:58 PM EST) Lynsey Otoole PharmD Procedures Procedure Name Priority Date/Time Associated Diagnosis Comments HIGH SENSITIVITY TROPONIN I Routine 08/09/2024 9:15 AM EST BASIC METABOLIC PANEL Routine 08/09/2024 9:15 AM EST CBC WITH AUTO DIFFERENTIAL Routine 08/09/2024 9:15 AM EST POCT GLYCATED HEMOGLOBIN, TOTAL Routine 06/09/2024 2:07 PM EST Type 2 diabetes mellitus without complication, unspecified whether terminal manager insulin use ([facility]) POCT GLUCOSE Routine 06/09/2024 2:01 PM EST Type 2 diabetes mellitus without complication, unspecified whether terminal manager insulin use ([facility]) HEMATOXYLIN AND EOSIN STAIN Routine 05/21/2024 12:29 PM EST GLUCOSE, WHOLE BLOOD Routine 05/21/2024 11:46 AM EST HIGH SENSITIVITY TROPONIN I Routine 05/19/2024 3:42 AM EST D DIMER HIGH SENSITIVITY Routine 05/19/2024 3:42 AM EST POCT LORENA-14 URINE DRUG SCREEN Routine 05/15/2024 10:30 AM EDT Chronic midline low back pain without sciatica HEPATITIS C AB W/REFL TO HCV RNA, QN, PCR Routine 12/20/2022 10:56 AM EDT Unexplained night sweats LIPID PANEL, STANDARD Routine 11/09/2022 11:21 AM EDT Pre-op exam HM COLONOSCOPY Routine 07/27/2020 from Last 3 Months or Most Recently Relevant to Health Maintenance Results * High Sensitivity Troponin I (08/09/2024 9:15 AM EST) Only the most recent of2 resultswithin the time period is included. [facility] TROPONIN I HIGH SENSITIVITY <2.7 <3.5 - 35.0 ng/L [facility] Comment:The Wheeler high sens itivity Troponin-I results should beused in conjunction with other diagnostic information suchas ECG, clinical observations and information, and patientsymptoms to aid in the diagnosis of AR. 08/09/2024 9:15 AM EST 08/09/2024 9:19 AM EST us Generic External Data Provider LAB BLOOD ORDERAB LES Final Result [facility] [address] [place] [phone] * (ABNORMAL) CBC auto differential (08/09/2024 9:15 AM EST) [facility] White Blood Count 8.6 4.8 - 10.8 X10*3/uL [facility] Red Blood Count 4.95 4.60 - 5.80 X10*6/uL [facility] Hemoglobin 14.6 14.0 - 18.0 g/dl [facility] Hematocrit 42.6 42.0 - 52.0 % [facility] Mean Corpuscular Volume 86.1 80.0 - 98.0 fL [facility] Mean Corpuscular Hemoglobin 29.5 27.0 - 33.0 pg [facility] Mean Corpuscular HGB Conc 34.3 31.0 - 36.0 g/dl [facility] Red Cell Distribution Width 12.5 11.0 - 16.0 % [facility] Platelet Count 277 160 - 400 X10*3/uL [facility] Mean Platelet Volume 9.5 9.4 - 12.4 fL [facility] Neutrophils Percent Auto 48.6 45 - 73 % [facility] Imm Gran Pct Auto 0.2 0.0 - 0.4 % [facility] Lymphocytes Percent Auto 31.2 20 - 40 % [facility] Monocytes Percent Auto 13.5(H) 2 - 11 % [facility] Eosinophils Percent Auto 5.8(H) 0 - 4 % [facility] Basophils Percent Auto 0.7 0 - 2 % [facility] NRBC Pct Auto 0.0 0.0 - 0.2 /100WBC [facility] Neutrophils Absolute Auto 4.2 2.0 - 8.3 x10*3/uL [facility] Imm Gran Abs Auto 0.02 0.00 - 0.03 X10*3/uL [facility] Lymphocytes Absolute Auto 2.7 1.2 - 4.9 X10*3/uL [facility] Monocytes Absolute Auto 1.2 0.1 - 1.2 X10*3/uL [facility] Eosinophils Absolute Auto 0.5(H) 0.0 - 0.4 X10*3/uL [facility] Basophils Absolute Auto 0.1 0.0 - 0.2 X10*3/uL [facility] NRBC Abs Auto 0.000 0.0 - 0.012 X10*3/uL [facility] 08/09/2024 9:15 AM EST 08/09/2024 9:19 AM EST us Generic External Data Provider LAB BLOOD ORDERAB LES Final Result [facility] [address] [place] [phone] * (ABNORMAL) Basic Metabolic Panel (08/09/2024 9:15 AM EST) Sodium 139 135 - 145 mmol/L [facility] Potassium 3.8 3.3 - 5.1 mmol/L [facility] Chloride 107 96 - 108 mmol/L [facility] Carbon Dioxide 23 22 - 29 mmol/L [facility] Anion Gap 13 12 - 20 [facility] Urea Nitrogen (BUN) 21(H) 9 - 16 mg/dL [facility] Creatinine, Serum 0.81 0.5 - 1.4 mg/dL [facility] Creatinine Clr Calc Pharmacy 92.6 [facility] Comment:eGFR (calculated fro m the MDRD study equation) and eCrCl(calculated from the Cockcroft-Gault equation) are based ondifferent parameters and may not yield comparable results.If eCrCl result is absurd, please check patient'sheight/weight. Estimated Glomerular Filt Rate >60 [facility] Comment:Chronic Kidney Disea se: Estimated GFR < 60 mL/min/[id number] Kidney Disease: Estimated GFR < 15 mL/min/1.73m2 Glucose 100 60 - 115 mg/dL [facility] Calcium 9.7 8.4 - 10.2 mg/dL [facility] 08/09/2024 9:15 AM EST 08/09/2024 9:19 AM EST us Generic External Data Provider LAB BLOOD ORDERAB LES Final Result [facility] [address] [place] [phone] * POCT HGB A1C (06/09/2024 2:07 PM EST) Hemoglobin A1C 5.9 4.0 - 6.0 % QC Media Lot # [id number] Lot# Expiration Date [id number] Blood 06/09/2024 2:07 PM EST us Chun Mckinley MD POINT OF CARE TEST EN TER/EDIT ORDERABLES Final Result * POCT Glucose (06/09/2024 2:01 PM EST) Pathologist [facility] Glucose Blood, POC 122 60 - 200 mg/dL QC Media Lot # [id number] Lot# Expiration Date [id number] Blood Capillary blood specimen / Unknown 06/09/2024 2:01 PM EST Chun Mckinley MD POINT OF CARE TEST EN TER/EDIT ORDERABLES Final Result * Hematoxylin and Eosin Stain (05/21/2024 12:29 PM EST) 05/21/2024 12:2 9 PM EST 05/21/2024 1:05 PM EST Narrative [facility] - 05/25/2024 8:50 AM EST ----- ------- Name: Francisco J Romeo ?Age/Sex: 64/M ? : 1960 Unit#: [id number] ?? Attend Dr: David Brown MD ?Re05/21/24 ?Status: DEP SDC ? Location: [facility] ?Disch: ? ----- ------- SPEC : [id number] ? RECD: 05/21/24 ? STATUS: ??SOUT ? REQ NUM: [id number] ? TONI: 05/21/24 ? SUBM DR: David Brown MD ? ENTERED: ??05/21/24 ?SP TYPE: Surgical ? OTHR DR: Chun Michel MD ?? ORDERED: ??HE Stain/6, Gross Micro L4/2, IHC, Special st. 2, H. pylori, AB/PAS ? Diagnosis ?? A. ??Stomach, biopsy: ?- Antral-type and oxyntic mucosa with moderate chronic active inflammation and focal ?? intestinal metaplasia; negative for dysplasia. ?- Positive for H pylori. ? B. 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 ?- No dysplasia seen. ?- Squamous mucosa within normal limits. ?Clinical History Pre-Op Dx: ??GERD Post-Op Dx: Esophageal stricture, hiatal hernia, possible Merlos's, patulous LES, erosive esophagitis, Schatzki's ring ?Microscopic Description A, B. ??Microscopic sections examined. ??Focal intestinal metaplasia is seen (B), supported by AB/PAS stains; Helicobacter organisms are seen, supported by H. pylori immunostain (A). ? Material Received ?? A. Stomach bx ?? B. GE junction bx ? Gross Description Received in two parts. Part A: ??Received in formalin labeled ?stomach bx? are 4 molina-pink irregular tissue fragments ranging from 0.15-0.2 cm, submitted in toto in a cassette labeled A. Part B: ??Received in formalin labeled ?GE junction bx? are 2 dneg- white and molina-pink irregular tissue fragments each measuring 0.25 cm, submitted in toto in a cassette labeled B. ??CEDS Special studies ordered and performed: Immunostain for H. pylori on A; AB/PAS stains on B ? CONTINUED ON NEXT PAGE ----- ------- Name: Francisco J Romeo ?Age/Sex: 64/M ? : 1960 Unit#: [id number] ?? Attend Dr: David Brown MD ?Re05/21/24 ?Status: DEP SDC ? Location: HO.SSS ?Disch: ? ----- ------- SPEC : [id number] ? RECD: 05/21/24-1304 ? STATUS: ??SOUT ? REQ NUM: [id number] ? TONI: 05/21/24-1228 ? SUBM DR: David Brown MD ? ENTERED: ??05/21/24-1308 ?SP TYPE: Surgical ? OTHR DR: Chun Michel MD ?? ORDERED: ??HE Stain/6, Gross Micro L4/2, IHC, Special st. 2, H. pylori, AB/PAS ? Copies To: ?? Chun Michel MD ?? [facility] ?? [address] ?? [place] [address] ?? [phone] ?? David Brown MD ?? [facility] ?? [address] ?? [place] [address] ?? [phone] ----- ------- Signed (signature on file) Jose Cardenas MD 05/25/24 8579 ? ----- ------- ? END OF REPORT ? Generic External Data Provider LAB BLOOD ORDERAB LES Final Result Performing Organization Address [facility] Phone Number [facility] [address] [place] [phone] [phone] * (ABNORMAL) Glucose, Whole Blood (05/21/2024 11:46 AM EST) [facility] Glucose, Whole Blood 131(H) 60 - 115 mg/dL [facility] Comment:METER #: [id number] 05/21/2024 11:4 6 AM EST 05/21/2024 12:06 PM EST Generic External Data Provider LAB BLOOD ORDERAB LES Final Result Performing Organization Address [facility] Number [facility] [address] [place] [phone] * D Dimer High Sensitivity (05/19/2024 3:42 AM EST) [facility] D Dimer High Sensitivity <150 NG/ML [facility] Comment:D-DIMER HS REFERENCE RANGENote: Our assay reports D-Dimer Units (D- DU).The cut-off value for venous thromboembolic (VTE) disease is230 ng/mL. This value has a very high negative predictivevalue when the patient has a low to moderate clinicalprobability of VTE.The upper limit of normal is 243 ng/mL. 05/19/2024 3:42 AM EST 05/19/2024 3:44 AM EST Generic External Data Provider LAB BLOOD ORDERAB LES Final Result Performing Organization Address [facility] Phone Number [facility] [address] [place] [phone] * POCT LORENA-14 Urine Drug Screen (05/15/2024 10:30 AM EDT) Pathologist [facility] Positive Urine Urine specimen obtained by clean catch procedure / Unknown 05/15/2024 10:30 AM EDT Narrative Maritza Mejia RN - 05/15/2024 10:30 AM EDT .UTOX cup Lot#[id number] Exp. 06/20/25 Internal Pass Control Chun Mckinley MD POINT OF CARE TEST ENTER/EDIT ORDERABLES Edited Result - Final * Hepatitis C Antibody with Reflex to HCV, RNA, Quantitative, Real-Time PCR (12/20/2022 10:56 AM EDT) [facility] Hepatitis C Antibody NON-REACT FABRICIO NON-REACT FABRICIO [facility] [place] Index 0.13 <1.00 [facility] [place] Comment: HCV antibody was non-reactive. There is no laboratory evidence of HCV infection. In most cases, no further action is required. However, if recent HCV exposure is suspected, a test for HCV RNA (test code 46543) is suggested. For additional information please refer to http://education.DonorSearch/faq/DWZ77r3 (This link is being provided for informational/ educational purposes only.) Blood Venous blood specimen / Unknown 12/20/2022 10:56 AM EDT 12/20/2022 10:56 AM EDT Narrative [facility] - 12/21/2022 5:38 AM EDT FASTING:YES FASTING: YES Chun Mckinley MD LAB BLOOD ORDERABLES Final Result [facility] [address], [place] [address] [facility] [place] [address] [place] [address] * Lipid Panel, Standard (11/09/2022 11:21 AM EDT) [facility] Cholesterol, Total 138 <200 mg/dL [facility] [place] HDL Cholesterol 54 > OR = 40 mg/dL [facility] [place] Triglycerides 131 <150 mg/dL [facility] [place] LDL Cholesterol 63 mg/dL (calc) [facility] [place] Comment: Reference range: <100 Desirable range <100 mg/dL for primary prevention; ?? <70 mg/dL for patients with CHD or diabetic patients with > or = 2 CHD risk factors. LDL-C is now calculated using the Trever calculation, which is a validated novel method providing better accuracy than the Friedewald equation in the estimation of LDL-C. Manav ERICKSON et al. DIONICIO. 2013;310(19): 0645-6734 (http://education.Buzz Media/faq/QDY357) Chol/HDLC Ratio 2.6 <5.0 (calc) [facility] [place] Non-HDL Cholesterol 84 <130 mg/dL (calc) [facility] [place] Comment: For patients with diabetes plus 1 major ASCVD risk factor, treating to a non-HDL-C goal of <100 mg/dL (LDL-C of <70 mg/dL) is considered a therapeutic option. Blood Venous blood specimen / Unknown 11/09/2022 11:21 AM EDT 11/09/2022 11:21 AM EDT Narrative [facility] - 11/10/2022 8:06 AM EDT FASTING:NO FASTING: NO Colleen Lou FELT TIPPING MACHINE TENDER LAB BLOOD ORDERABLES Final Resu lt [facility] [address], [place] [address] [facility] [place] [address] [place] [address] * Hm Colonoscopy (07/27/2020) Colonoscopy Normal Normal 07/27/2020 Blossom Spencer - 07/27/2020 2:25 PM EST Recommended 5 year follow up ( see GI note 08/17/2020) us Historical Provider HEALTH MAINTENANCE Edited Result - Final from Last 3 Months or Most Recently Relevant to Health Maintenance Insurance [facility] [place] [facility] Care Teams Automatic Spinning Lathe Operator Relationship Specialty Start Date End Date Chun Porras MD [address] [facility] [place] [address] PCP - General Internal Medicine 05/26/14 Lynsey [place], Sherwin [address] [facility] [place], [place] Pharmacist Internal Medicine 09/26/23
--- OUTSIDE RECORDS SUMMARY | 2024-08-09 15:49 | XMS_ITS | Encounter Summary ---
Author Organization [employer] Address [address] [place] [address] Care Team Providers Care Audit Manager Name Role Phone Chun Porras MD Primary Care Provide r Lynsey [place] PharmD Unavailable [phone] Reason for Visit * Reason Onset Date Comments Med Refill 07/13/2024 Encounter Details Date Type Department Care Team ([facility] st Contact Info) Description 07/13/2024 Refill [facility]S [address] [place] [address] Maritza Mejia, RN [address] [place] [address] Chronic midline low back pain without sciatica [...] Description 08/21/2024 10:30 AM EST Clinical Support [facility] MEDICINE [address] [place] [address] Maritza Mejia RN [address] [place] [address] 09/10/2024 11:30 AM EST Office Visit [address] [address] Chun Porras MD [address] [place] [address] documented as of this encounter Goals Goal [...] documented as of this encounter Care Teams Audit Manager Relationship Specialty Start Date End Date Chun Porras MD 230 [place] [address] PCP - General Internal Medicine 05/26/14 Lynsey [place] PharmD [address] [place] [address] Pharmacist Internal Medicine 09/26/23 documented as of this encounter
--- OUTSIDE RECORDS SUMMARY | 2024-08-09 15:49 | XMS_ITS | Encounter Summary ---
Author Organization [employer] Address [address] 7[address] [place] [address] Care Team Providers Care Expense Clerk Name Role Phone Chun Porras MD Primary Care Provide r Lynsey [place] PharmD Unavailable [phone] Encounter Details Date Type Department Care Team ([facility] Contact Info) Description 07/13/2024 Telephone [facility] [address] [place], [place] [phone] Chun Porras MD 230 [place] [address] Social History Tobacco Use Types Packs/Day Years [...] AM EDT documented as of this encounter Miscellaneous Notes * Telephone Encounter - Rocio Perea LPN - 07/13/2024 3:34 PM EST Received fax from [facility] Pharm[facility] requesting refill on Tramadol 50 mg. documented in this encounter Plan of Treatment Upcoming Encounters Date Type Department Care Team (Late st Contact Info) Description 08/21/2024 10:30 AM EST Clinical Support [facility] MEDICINE [address] [place] [address] Maritza Mejia RN 505 [place] [address] 09/10/2024 11:30 AM EST Office Visit [facility] MEDICINE [address] [place] [address] Chun Porras MD 230 [place] [address] documented as of this encounter Goals Goal Patient Goal Type Associated Problems Recent Progress Patient-Stated? Author Blood Pressure < 140/90 Blood Pressure Essential hypertension 126/72(2023 5:58 PM EST) No Lynsey [place], PharmD documented as of this encounter Visit Diagnoses Not on filedocumented in this encounter Additional Health Concerns Assessment Noted Time PHQ-9 Depression Total Score: 1 11/12/19 11:09 AM EDT documented as of this encounter Care Teams Expense Clerk Relationship Specialty Start Date End Date Chun Porras MD 230 [place] [address] PCP - General Internal Medicine 05/26/14 Lynsey [place], PharmD 230 [place] [address] Pharmacist Internal Medicine 09/26/23 documented as of this encounter
--- OUTSIDE RECORDS SUMMARY | 2024-08-09 15:49 | XMS_ITS | Encounter Summary ---
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
--- OUTSIDE RECORDS SUMMARY | 2024-08-09 15:49 | XMS_ITS | Encounter Summary ---
Author Organization [employer] Address [address] 7[address] [place] [address] Care Team Providers Care Supervisor Framing Mill Name Role Phone Chun Porras MD Primary Care Provide r Lynsey [place] PharmD Unavailable [phone] Reason for Visit * Reason Comments Med Refill Encounter Details Date Type Department Care Team ([facility] st Contact Info) Description 11/14/2023 Refill [facility] MEDICINE [address] [place] [address] Chun Porras MD [address] [place] [address] Chronic midline low back pain without sciatica [...] Description 08/21/2024 10:30 AM EST Clinical Support [facility] [address] [place] [address] Maritza Mejia, SANDRA 505 [place] [address] 09/10/2024 11:30 AM EST Office Visit [facility] [address] [place] [address] Chun oPrras MD [address] [place] [address] documented as of this encounter Goals Goal [...] documented as of this encounter Care Teams Supervisor Framing Mill Relationship Specialty Start Date End Date Chun Porras MD [address] [place] [address] PCP - General Internal Medicine 05/26/14 Lynsey [place], Sherwin [address] [place] [address] Pharmacist Internal Medicine 09/26/23 documented as of this encounter
--- OUTSIDE RECORDS SUMMARY | 2024-08-09 15:49 | XMS_ITS | Clinical Summary ---
Author Organization [facility] Facility Address [address] [address] Care Team Providers Care City Route Driver Name Role Phone Chun Brennan MD Primary Care Provider Unav ailable Family History Medical History Relation Comments Heart disease Father Hypertension Father Cancer Mother Hypertension Mother Heart disease Sibling 1 Cancer Sibling 2 Relation Status Comments Father Mother Sibling 1 Sibling 2 Social History Tobacco Use Types Packs/Day Years Used Date Smoking Tobacco: Never Alcohol Use Standard Drinks/Week Comments Yes 0 (1 standard drink = 0.6 oz pure alcohol) Alcoholic Drinks/day: Occasional social drink Sex and Gender Information Value Date Recorded Sex Assigned at Not on file Legal Sex Male 4:54 PM EST Gender Identity Not on file Sexual Orientation Not on file Last Filed Vital Signs Vital Sign Reading Time Taken Comments Blood Pressure 136/88 01/06/2019 12:00 PM EDT Pulse 92 01/06/2019 12:00 PM EDT Temperature - - Respiratory Rate - - Oxygen Saturation 98% 01/06/2019 12:00 PM EDT Inhaled Oxygen Concentration - - Weight 78.5 kg (173 lb) 01/06/2019 12:00 PM EDT Height 177.8 cm (5' 10 ) 01/06/2019 12:00 PM EDT Body Mass Index 24.82 01/06/2019 12:00 PM EDT Plan of Treatment Health Maintenance Due Date Last Done Comments Colorectal Cancer Screening: Annual FOBT 2007 Colorectal Cancer Screening: Colonoscopy 2007 Colorectal Cancer Screening: Sigmoidoscopy 2007 Pneumococcal Vaccine: 65+ Ye ars (1 of 1 - PCV) 2023 Influenza Vaccine (#1) 2024 Hepatitis B Vaccine Aged Out No longe r eligible based on patient's age to complete this topic Insurance [address] [place] [id number] [facility] [address] [place] [phone] [employer] [address] [place] [phone] Care Teams City Route Driver Relationship Specialty Start Date End Date Chun Brennan MD PCP - General 07/25/20
--- OUTSIDE RECORDS SUMMARY | 2024-08-09 15:49 | XMS_ITS | Encounter Summary ---
Author Organization [employer] Address [address] 7t [place] [address] Care Team Providers Care Machine Erector Name Role Phone Chun Porras MD Primary Care Provide r Lynsey [place] PharmD Unavailable [phone] Reason for Visit * Reason Onset Date Comments Med Refill 03/22/2023 Encounter Details Date Type Department Care Team (Late st Contact Info) Description 03/14/2023 Refill [facility] MEDICINE [address] [place] [address] Chun Porras MD [address] [place] [address] Chronic midline low back pain without sciatica [...] encounter Miscellaneous Notes * Telephone Encounter - Jessie Vargasjocelyn Ritchie - 03/22/2023 11:46 AM EDT Pt walked in requesting a refill for traMADol (Ultram) 50 MG tablet. Pt is stating he doesn't have medication. He can be contact any time. Iraqi Speaker * Telephone Encounter - Arlette Phipps - 03/19/2023 8:24 AM EDT Tc from pt requesting status on script for tramadol. * Telephone Encounter - Fela Almendarez RN - 03/14/2023 1:31 PM EDT Different request already sent to PCP documented in this encounter Plan of Treatment Upcoming Encounters Date Type Department Care Team (Late st Contact Info) Description 08/21/2024 10:30 AM EST Clinical Support [facility] MEDICINE [address] [place] [address] Maritza Mejia RN 505 [place] [address] 09/10/2024 11:30 AM EST Office Visit [facility] MEDICINE [address] [place] [address] Chun Porras MD [address] [place] [address] documented as of this encounter Visit Diagnoses Diagnosis Chronic midline low back pain without sciatica documented in this encounter Additional Health Concerns Assessment Noted Time PHQ-9 Depression Total Score: 3 07/06/20 22 11:00 AM EST documented as of this encounter Care Teams Machine Erector Relationship Specialty Start Date End Date Chun Porras MD [address] [place] [address] PCP - General Internal Medicine 05/26/14 Lynsey Madison, MichaelD [address] [place] [address] Pharmacist Internal Medicine 09/26/23 documented as of this encounter
--- OUTSIDE RECORDS SUMMARY | 2024-08-09 15:49 | XMS_ITS | Encounter Summary ---
Author Organization [employer] Address [address] 7t [place] [address] Care Team Providers Care Medical Administrative Assistant Name Role Phone Chun Porras MD Primary Care Provide r Lynsey [place] PharmD Unavailable [phone] Encounter Details Date Type Department Care Team ([facility] Contact Info) Description 11/14/2022 Abstract [facility]ICINE [address] [place] [address] Chun Porras MD 230 [place] [address] Social History Tobacco Use Types Packs/Day Years [...] suspected to have Coronavirus/COVID-19? No / Unsure 11/13/2022 10:41 AM EDT documented as of this encounter Plan of Treatment Upcoming Encounters Date Type Department Care Team (Late Contact Info) Description 08/21/2024 10:30 AM EST Clinical Support [facility] [address] [place] [address] [place] [address] Maritza Mejia, RN 505 [place] [address] 09/10/2024 11:30 AM EST Office Visit [facility] [address] [place] [address] [place] [address] Chun Porras MD [address] [facility] [place] [address] documented as of this encounter Procedures Procedure Name Priority Date/Time Associated Diagnosis Comments COLONOSCOPY Routine 07/27/2020 documented in this encounter Results * Colonoscopy (07/27/2020) Colonoscopy Normal Normal 07/27/2020 Narrative Blossom Hinkle - 07/27/2020 2:25 PM EST Recommended 5 year follow up ( see GI note 08/17/2020) us Historical Provider [facility] Edited Result - Final documented in this encounter Visit Diagnoses Not on filedocumented in this encounter Additional Health Concerns Assessment Noted Time PHQ-9 Depression Total Score: 3 07/06/20 22 11:00 AM EST documented as of this encounter Care Teams Medical Administrative Assistant Relationship Specialty Start Date End Date Chun Porras MD [facility] [place] [address] PCP - General Internal Medicine 05/26/14 Lynsey [place] PharmD [address] [place] [address] [place] [address] Pharmacist Internal Medicine 09/26/23 documented as of this encounter
--- OUTSIDE RECORDS SUMMARY | 2024-08-09 15:49 | XMS_ITS | Encounter Summary ---
Author Organization [employer] Address [address] [place] [address] Care Team Providers Care Department Supervisor Name Role Phone Chun Porras MD Primary Care Provide r Lynsey [place] PharmD Unavailable [phone] Reason for Visit * Reason Onset Date Comments Med Refill 04/15/2024 Encounter Details Date Type Department Care Team ([facility] st Contact Info) Description 04/15/2024 Telephone [facility] [address] [place] [address] Chun Porras MD 230 [place] [address] Med Refill Social History Tobacco Use Types Packs/Day Years [...] encounter Miscellaneous Notes * Telephone Encounter - Arlette Phipps - 04/15/2024 12:28 PM EDT Tc from pt requesting a refill for traMADol (Ultram) 50 MG tablet documented in this encounter Plan of Treatment Upcoming Encounters Date Type Department Care Team (Late st Contact Info) Description 08/21/2024 10:30 AM EST Clinical Support [address] [address] Maritza Mejia RN 505 [place] [address] 09/10/2024 11:30 AM EST Office Visit [address] [address] Chun Porras MD [address] [place] [address] documented as of this encounter Goals Goal [...] documented as of this encounter Care Teams Department Supervisor Relationship Specialty Start Date End Date Chun Porras MD [address] [place] [address] PCP - General Internal Medicine 05/26/14 Lynsey [place], MichaelD [address] [place] [address] Pharmacist Internal Medicine 09/26/23 documented as of this encounter
--- OUTSIDE RECORDS SUMMARY | 2024-08-09 15:49 | XMS_ITS | Encounter Summary ---
Author Organization [employer] Address [address] [facility] [address] 7[address] [place] [address] Care Team Providers Care Ships Or Barges Loader Name Role Phone Chun Porras MD Primary Care Provide r Lynsey Madison PharmD Unavailable [phone] Encounter Details Date Type Department Care Team (Late st Contact Info) Description 08/09/2024 Orders Only GENERIC EXTERNAL DATA DEPARTMENT Provider, Generic External Data Social History Tobacco Use Types Packs/Day Years [...] Description 08/21/2024 10:30 AM EST Clinical Support [facility] [address] [place] [phone] Maritza Mejia RN [address] [place] [address] 09/10/2024 11:30 AM EST Office Visit [address] [address] Chun Porras MD [address] [place] [address] documented as of this encounter Goals Goal Patient Goal Type Associated Problems Recent Progress Patient-Stated? Author Blood Pressure < 140/90 Blood Pressure Essential hypertension 126/72(2023 5:58 PM EST) No Lynsey Madison, PharmD documented as of this encounter Procedures Procedure Name Priority Date/Time Associated Diagnosis Comments HIGH SENSITIVITY TROPONIN I Routine 08/09/2024 9:15 AM EST CBC WITH AUTO DIFFERENTIAL Routine 08/09/2024 9:15 AM EST BASIC METABOLIC PANEL Routine 08/09/2024 9:15 AM EST documented in this encounter Results * High Sensitivity Troponin I (08/09/2024 9:15 AM EST) Pathologist [facility] TROPONIN I HIGH SENSITIVITY <2.7 <3.5 - 35.0 ng/L [facility] Comment:The Wheeler high sens itivity Troponin-I results should beused in conjunction with other diagnostic information suchas ECG, clinical observations and information, and patientsymptoms to aid in the diagnosis of ID. 08/09/2024 9:15 AM EST 08/09/2024 9:19 AM EST us Generic External Data Provider LAB BLOOD ORDERAB LES Final Result [facility] [address] [place], [place] [phone] * (ABNORMAL) Basic Metabolic Panel (08/09/2024 9:15 AM EST) [facility] Sodium 139 135 - 145 mmol/L [facility] Potassium 3.8 3.3 - 5.1 mmol/L [facility] Chloride 107 96 - 108 mmol/L [facility] Carbon Dioxide 23 22 - 29 mmol/L [facility] Anion Gap 13 12 - 20 [facility] Urea Nitrogen (BUN) 21(H) 9 - 16 mg/dL [facility] Creatinine, Serum 0.81 0.5 - 1.4 mg/dL [facility] Creatinine Clr Calc Pharmacy 92.6 [facility] Comment:eGFR (calculated fro m the MDRD study equation) and eCrCl(calculated from the Cockcroft-Gault equation) are based ondifferent parameters and may not yield comparable results.If eCrCl result is absurd, please check patient'sheight/weight. Estimated Glomerular Filt Rate >60 [facility] Comment:Chronic Kidney Disea se: Estimated GFR < 60 mL/min/1.61i7Ynfadp Kidney Disease: Estimated GFR < 15 mL/min/1.73m2 Glucose 100 60 - 115 mg/dL [facility] Calcium 9.7 8.4 - 10.2 mg/dL [facility] 08/09/2024 9:15 AM EST 08/09/2024 9:19 AM EST us Generic External Data Provider LAB BLOOD ORDERAB LES Final Result [facility] [address] [place] [address] [phone] * (ABNORMAL) CBC auto differential (08/09/2024 9:15 AM EST) White Blood Count 8.6 4.8 - 10.8 X10*3/uL [facility] Red Blood Count 4.95 4.60 - 5.80 X10*6/uL [facility] Hemoglobin 14.6 14.0 - 18.0 g/dl [facility] Hematocrit 42.6 42.0 - 52.0 % [facility] Mean Corpuscular Volume 86.1 80.0 - 98.0 fL [facility] Mean Corpuscular Hemoglobin 29.5 27.0 - 33.0 pg [facility] Mean Corpuscular HGB Conc 34.3 31.0 - 36.0 g/dl [facility] Red Cell Distribution Width 12.5 11.0 - 16.0 % [facility] Platelet Count 277 160 - 400 X10*3/uL [facility] Mean Platelet Volume 9.5 9.4 - 12.4 fL [facility] Neutrophils Percent Auto 48.6 45 - 73 % [facility] Imm Gran Pct Auto 0.2 0.0 - 0.4 % [facility] Lymphocytes Percent Auto 31.2 20 - 40 % [facility] Monocytes Percent Auto 13.5(H) 2 - 11 % [facility] Eosinophils Percent Auto 5.8(H) 0 - 4 % [facility] Basophils Percent Auto 0.7 0 - 2 % [facility] NRBC Pct Auto 0.0 0.0 - 0.2 /100WBC [facility] Neutrophils Absolute Auto 4.2 2.0 - 8.3 x10*3/uL [facility] Imm Gran Abs Auto 0.02 0.00 - 0.03 X10*3/uL [facility] Lymphocytes Absolute Auto 2.7 1.2 - 4.9 X10*3/uL [facility] Monocytes Absolute Auto 1.2 0.1 - 1.2 X10*3/uL [facility] Eosinophils Absolute Auto 0.5(H) 0.0 - 0.4 X10*3/uL [facility] Basophils Absolute Auto 0.1 0.0 - 0.2 X10*3/uL [facility] NRBC Abs Auto 0.000 0.0 - 0.012 X10*3/uL [facility] 08/09/2024 9:15 AM EST 08/09/2024 9:19 AM EST us Generic External Data Provider LAB BLOOD ORDERAB LES Final Result Performing Organization Address City/State/[facility] Co de Phone Number [facility] [address] [place] [address] [phone] documented in this encounter Visit Diagnoses Not on filedocumented in this encounter Additional Health Concerns Assessment Noted Time PHQ-9 Depression Total Score: 1 11/12/19 24 11:09 AM EDT documented as of this encounter Care Teams Ships Or Barges Loader Relationship Specialty Start Date End Date Chun Porras MD [address] [place] [address] PCP - General Internal Medicine 05/26/14 Lynsey Madison PharmD [address] [place] [address] Pharmacist Internal Medicine 09/26/23 documented as of this encounter
== END 2024-08-09 16:46 | disposition left against medical advice (07) ==
PROVIDERS: Emergency Provider Emergency Medicine; PCP Internal Medicine
DX: R07.89 Other chest pain (principal); Z79.899 Other long term (current) drug therapy
CPT/HCPCS: 36415; 80048; 84484; 85025; 93005; 99281; 99283

== ENCOUNTER → 2024-08-09 08:56 | Outpatient (BNV) | payer OTHER, SELFPAY | PROVIDERS: Emergency Provider Emergency Medicine; PCP Internal Medicine; Visit Provider Internal Medicine | DX: R07.9 Chest pain, unspecified (principal) | CPT/HCPCS: 93010 ==

== ENCOUNTER 2024-08-12 13:39 | Outpatient (AMB) | payer OTHER, SELFPAY ==
--- NOTE | 2024-08-12 14:35 | MHC.OFFVIS ---
Vital Signs 08/12/24 14:36 Height 5 ft 10 in Weight 173 lb 4.533 oz BMI 24.9 BP 130/70 Blood Pressure Location Lt brachial Position Sitting Pulse 65 Pulse Source Monitor Intake Visit Reasons: 2 mth s/p cta Intake Note: 2 mth f/up cta Outside Industrial Sales Representative Required: No Outside Industrial Sales Representative Services: Outside Industrial Sales Representative Offered & Declined Outside Industrial Sales Representative Name: ana cristina/azerbaijani Accompanied by: Spouse Allergies No Known Allergies [No Known Allergies*] Allergy (Verified 08/09/24 09:06) Medication List - Last Reconciled 08/12/24 by Vazquez Monahan MD albuterol sulfate 2.5 mg (3 mL) inhalation Q4H PRN 30 days albuterol sulfate 90 mcg/actuation 2 puffs PO Q4-6H PRN 30 days amitriptyline 1 tab PO BEDTIME amlodipine 1 tab PO QAM aspirin 1 tab PO QAM atorvastatin 1 tab PO BEDTIME bismuth subsalicylate (Bismuth) 2 tabs PO QID 14 days blood sugar diagnostic (FreeStyle Lite Strips) As directed dicyclomine 20 mg PO QID 30 days doxycycline hyclate 100 mg PO BID 14 days duloxetine 1 cap PO QAM finasteride 1 tab PO DAILY pfstrdzwvzb-wccfemmju-vjdgbsjn 200-62.5-25 mcg (Trelegy Ellipta) 1 inh inhalation DAILY 30 days gabapentin mg PO ipratropium-albuterol 0.5 mg-3 mg(2.5 mg base)/3 mL 3 mL inhalation Q4H PRN lancets (TRUEplus Lancets) As directed lidocaine 5% (Lidoderm) 1 patch topical DAILY metformin ER 500 mg PO BID metoprolol tartrate 1 tab PO metronidazole 1,000 mg (2 x 500 mg) PO BID 14 days montelukast 10 mg PO BEDTIME nebulizers As directed rabeprazole (AcipHex) 20 mg PO BID ramelteon 8 mg PO DAILY sildenafil (Viagra) 1 tab PO DAILY PRN simethicone 180 mg PO QID 30 days terazosin 5 mg PO BEDTIME 90 days tramadol 50 mg PO TID PRN HPI Comments Details: 64-year-old gentleman background history of hypertension, diabetes and asthma COPD overlap syndrome who is presenting with chest pain. He has been experiencing chest pain for approximately 1 month. He has been to the ER and had EKG performed and was ruled out. He has describing a sharp sensation on the left and right side of the chest which happens randomly. Mostly these symptoms are happening at rest. With activities he gets some dyspnea and occasionally chest discomfort. EKGs showing sinus bradycardia. He has hypertension but blood pressure appears to be well controlled. He also has asthma and is currently on inhalers and montelukast. He smokes marijuana occasionally. No other drug use. 01/13/2024: He returns for follow-up. He was previously referred for exercise stress test. He was able to exercise for 7 minute 10 seconds on Jeremias protocol achieving 87% of maximum predicted heart rate and max workload of 8.8 Mets. He developed some ECG changes in his inferior leads but did not have any symptoms. He returns and he is complaining of some fatigue and off and on pressure-like chest discomfort. He also has acid reflux and started seeing gastroenterology recently. 08/12/2024: He was referred for coronary CTA. Coronary CTA has shown minimal disease in her coronary arteries. He was noticed to have enlargement of right ventricle by CT scan. He has known COPD. He said he went to the hospital recently because his blood pressure was elevated and he was getting burning chest discomfort. He has known GI issues including esophagitis and Merlos's esophagus. [facility] Medical History (Updated 08/12/24 @ 15:04 by Vazquez Monahan MD) New abnormality on chest x-ray REJI (acute kidney injury) Urgency of micturition Urinary hesitancy Nocturia more than twice per night Benign prostatic hyperplasia with weak urinary stream Epidermal inclusion cyst Atelectasis Fecal incontinence Flank lipoma Asthma-COPD overlap syndrome IBS (irritable bowel syndrome) Umbilical hernia Diabetes Arthritis Back pain GERD (gastroesophageal reflux disease) Bipolar 1 disorder Anxiety Depression Elevated cholesterol Tension pneumothorax, spontaneous Hypertension Asthma Surgical History History of esophagogastroduodenoscopy (EGD) S/P excision of lipoma (02/20/23) History of excision of mass (12/13/22) Hx of colonoscopy Hx of tracheostomy History of lung surgery Hx of hernia repair Family History Mother Stomach cancer Brother Prostate cancer Brother Prostate cancer Social History Household Members: None Housing: Apartment Do you presently have visiting nurse or other home services: No Alcohol intake: current Alcohol intake frequency: a few times a month Alcohol type: beer Patient Tobacco Use Status: Never used Tobacco e-Cigarette/Vaping Use: Never Used Second Hand Smoke Exposure: No Substance Use Type: Marijuana Advance Directives Date on File: 03/28/21 service: No Current occupational status: unemployed Review of Systems Const Denies chills, Denies fatigue, Denies fever(s), Denies frequent falls, Denies weakness, Denies weight gain and Denies weight loss ENT Denies dizziness Card Denies chest pain, Denies leg edema, Denies lightheadedness, Denies palpitations, Denies dyspnea and Denies dyspnea on exertion Resp Denies cough, Denies dyspnea and Denies dyspnea on exertion GI Denies hematochezia Musc Denies abnormal gait, Denies muscle weakness, Denies numbness, Denies radiating pain into limb and Denies tingling Neuro Denies abnormal gait, Denies dizziness, Denies frequent falls, Denies numbness, Denies tingling and Denies weakness Endo Denies fatigue and Denies palpitations Physical Exam Vital Signs: Last Vital Signs Pulse 65 08/12/24 14:36 BP 130/70 08/12/24 14:36 BMI result Body Mass Index 24.9 GENERAL APPEARANCE: in no acute distress, pleasant. NECK: no carotid bruit, no jugular venous distention. SKIN: no suspicious lesions, warm and dry. HEART: no murmurs, regular rate and rhythm. LUNGS: clear to auscultation bilaterally. ABDOMEN: soft, nontender. EXTREMITIES: no edema. PERIPHERAL PULSES: equal. NEUROLOGIC: No gross deficits, AAO X 3 Office Procedures EKG Details: Sinus rhythm 65 beats per minute, normal axis, normal ECG, QTC 432 milliseconds. [id number], Complete Results Reviewed Results Reviewed: Coronary CTA performed at [facility] 05/2024: Minimal stenosis 1-24% of the proximal and mid LAD, minimal stenosis 1-24% of distal left circumflex, mild noncalcified atherosclerotic plaque in the proximal descending thoracic aorta, severe dilation of right ventricle 5.6 cm at the base in diastole. Assessment & Plan Assessment & Plan (1) Right ventricular dilation: Code(s): I51.7 - Cardiomegaly Category: Medical Plan Pleasant 64 year gentleman who is here for follow-up. He was seen for chest pain and stress testing followed by coronary CTA. Coronary CTA has shown minimal coronary disease. This will medically managed with statin therapy and baby aspirin. Aspirin is optional in his case in case reflexes other symptoms are worse while on aspirin. He has CT scan also showed right ventricular dilatation. We will get echocardiography to assess the right ventricle and PA pressures. He has known COPD and is possible that he has underlying pulmonary hypertension leading to RV dysfunction. We will gather more information and then reassess him. Thank you for allowing me to participate in the care of your patient. Please feel free to contact me if you have any questions. Orders: Orders CA echo transthoracic complete Today I51.7 - Cardiomegaly Coding Level of Care Code Est Pt Level 4 (14634) Diagnoses Right ventricular dilation I51.7 CPT Codes EKG - CPT: 96187-[id number], Complete ([id number])
[2024-08-12 14:36] VITALS: BP 130/70; PULSE 65; BMI 24.9
--- OUTSIDE RECORDS SUMMARY | 2024-08-12 15:51 | XMS_ITS | Encounter Summary ---
Author Organization [employer] Address [address] 7[address] [place] [address] Care Team Providers Care Hospice Spiritual Care Coordinator Name Role Phone Chun Porras MD Primary Care Provide r Lynsey Madison PharmD Unavailable [phone] Reason for Visit * Reason Onset Date Comments Med Refill 04/15/2024 Encounter Details Date Type Department Care Team ([facility] st Contact Info) Description 04/15/2024 Telephone [facility] [address] [place] [address] Chun Porras MD [address] [place] [address] Med Refill Social History Tobacco Use Types [...] Description 08/21/2024 10:30 AM EST Clinical Support [address] [address] Maritza Mejia RN [address] [place] [address] 09/10/2024 11:30 AM EST Office Visit [address] [address] Chun Porras MD [address] [place] [address] documented as of this encounter Goals Goal [...] documented as of this encounter Care Teams Hospice Spiritual Care Coordinator Relationship Specialty Start Date End Date Chun Porras MD [address] [place] [address] PCP - General Internal Medicine 05/26/14 Lynsey Madison, MichaelD [address] [place] [address] Pharmacist Internal Medicine 09/26/23 documented as of this encounter
--- OUTSIDE RECORDS SUMMARY | 2024-08-12 15:51 | XMS_ITS | Clinical Summary ---
Author Organization [facility] Facility Address [address] [address] Care Team Providers Care Retail Sales Teammate Name Role Phone Chun Brennan MD Primary [...] age to complete this topic Insurance [address] [place] [id number] [facility] [address] [place] [phone] [facility] [address] [place] [phone] Care Teams Retail Sales Teammate Relationship Specialty Start Date End Date Chun Brennan MD PCP - General 07/25/20
--- OUTSIDE RECORDS SUMMARY | 2024-08-12 15:51 | XMS_ITS | Encounter Summary ---
Author Organization [employer] Address [address] [facility] [address] 7t [place] [address] Care Team Providers Care Behavioral Health Case Manager Name Role Phone Chun Porras MD Primary Care Provide r Lynsey Madison PharmD Unavailable [phone] Reason for Visit * Reason Comments Med Refill Encounter Details Date Type Department Care Team ([facility] st Contact Info) Description 04/28/2024 Refill [facility]INE [address] [place] [address] Lynsey Madison, PharmD [address] [place] [address] Type 2 diabetes mellitus without complication, 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 Author Blood Pressure < 140/90 Blood Pressure Essential hypertension 126/72(2023 5:58 PM EST) No Lynsey Madison, Sherwin documented as of this encounter Visit Diagnoses Diagnosis Type 2 diabetes mellitus without complication, unspecified whether assisted insulin use ([facility]) documented in this encounter Additional Health Concerns Assessment Noted Time PHQ-9 Depression Total Score: 1 11/12/19 24 11:09 AM EDT documented as of this encounter Care Teams Behavioral Health Case Manager Relationship Specialty Start Date End Date Chun Porras MD [address] [place] [address] PCP - General Internal Medicine 05/26/14 Lynsey Madison PharmD [address] [place] [address] Pharmacist Internal Medicine 09/26/23 documented as of this encounter
--- OUTSIDE RECORDS SUMMARY | 2024-08-12 15:51 | XMS_ITS | Encounter Summary ---
Author Organization [employer] Address [address] [facility] [address] [address] 7[address] [place] [address] Care Team Providers Care Account Development Associate Name Role Phone Chun Porras MD Primary Care Provide r Lynsey Madison PharmD Unavailable [phone] Reason for Visit * Reason Comments Med Refill Encounter Details Date Type Department Care Team ([facility] st Contact Info) Description 02/17/2024 Refill [facility] [address] [place] [address] Chun Porras MD [address] [place] [address] Chronic midline low back pain without sciatica [...] Description 08/21/2024 10:30 AM EST Clinical Support [facility] [address] [place] [address] Maritza Mejia RN [address] [place] [address] 09/10/2024 11:30 AM EST Office Visit [facility] [address] [place] [address] Chun Porras MD [address] [place] [address] documented as of this encounter Goals Goal [...] documented as of this encounter Care Teams Account Development Associate Relationship Specialty Start Date End Date Chun Porras MD [address] [place] [address] PCP - General Internal Medicine 05/26/14 Lynsey Madison, Sherwin [address] [place] [address] Pharmacist Internal Medicine 09/26/23 documented as of this encounter
--- OUTSIDE RECORDS SUMMARY | 2024-08-12 15:52 | XMS_ITS | Encounter Summary ---
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
--- OUTSIDE RECORDS SUMMARY | 2024-08-12 15:52 | XMS_ITS | Encounter Summary ---
Author Organization [employer] Address [address] [place] [address] Care Team Providers Care Concrete Truck Driver Name Role Phone Chun Porras MD Primary Care Provide r Lynsey Madison PharmD Unavailable [phone] Reason for Visit * Reason Comments Med Refill Encounter Details Date Type Department Care Team ([facility] st Contact Info) Description 08/22/2023 Refill [facility] [address] [place] [address] Colleen Lou FNP [address] [place] [address] Chronic obstructive pulmonary disease with (acute) exacerbation [...] Clinical Support [facility] [address] [place] [address] Maritza Mejia RN [address] [place] [address] 09/10/2024 11:30 AM EST Office Visit [facility] [address] [place] [address] Chun Porras MD [address] [place] [address] documented as of this encounter Goals Goal [...] documented as of this encounter Care Teams Concrete Truck Driver Relationship Specialty Start Date End Date Chun Porras MD [address] [place] [address] PCP - General Internal Medicine 05/26/14 Lynsey Madison, PharmD [address] [place] [address] Pharmacist Internal Medicine 09/26/23 documented as of this encounter
--- OUTSIDE RECORDS SUMMARY | 2024-08-12 15:52 | XMS_ITS | Encounter Summary ---
Author Organization [employer] Address [address] [facility] [facility] [address] [address] [place] [address] Care Team Providers Care Finance Accounting Internship Name Role Phone Chun Porras MD Primary Care Provide r Lynsey Madison PharmD Unavailable [phone] Reason for Visit * Reason Onset Date Comments Med Refill 07/13/2024 Encounter Details Date Type Department Care Team ([facility] st Contact Info) Description 07/13/2024 Refill [facility] [address] [place] [address] Maritza Mejia, RN [address] [place] [address] Chronic midline low back pain without sciatica [...] Description 08/21/2024 10:30 AM EST Clinical Support [facility] [address] [place] [address] Maritza Mejia RN [address] [place] [address] 09/10/2024 11:30 AM EST Office Visit [address] [address] Chun Porras MD [address] [place] [address] documented as of this encounter Goals Goal [...] documented as of this encounter Care Teams Finance Accounting Internship Relationship Specialty Start Date End Date Chun Porras MD [address] [place] [address] PCP - General Internal Medicine 05/26/14 Lynsey Madison PharmD [address] [place] [address] Pharmacist Internal Medicine 09/26/23 documented as of this encounter
--- OUTSIDE RECORDS SUMMARY | 2024-08-12 15:52 | XMS_ITS | Encounter Summary ---
Author Organization [employer] Address [address] [facility] [address] 7t [place] [address] Care Team Providers Care Wardrobe Specialty Worker Name Role Phone Chun Porras MD Primary Care Provide r Lynsey Madison PharmD Unavailable [phone] Reason for Visit * Reason Comments Med Refill Encounter Details Date Type Department Care Team ([facility] st Contact Info) Description 04/25/2023 Refill [facility] 230 [place] [address] Name, MD Cristhian 230 [place] [address] Essential hypertension Social History Tobacco Use Types [...] Description 08/21/2024 10:30 AM EST Clinical Support [address] [address] Maritza Mejia RN 505 [place] [address] 09/10/2024 11:30 AM EST Office Visit [facility] [address] [place] [address] Chun Porras MD [address] [place] [address] documented as of this encounter Visit Diagnoses Diagnosis Essential hypertension Unspecified essential hypertension documented in this encounter Additional Health Concerns Assessment Noted Time PHQ-9 Depression Total Score: 3 07/06/20 22 11:00 AM EST documented as of this encounter Care Teams Wardrobe Specialty Worker Relationship Specialty Start Date End Date Chun Porras MD [address] [place] [address] PCP - General Internal Medicine 05/26/14 Lynsey Madison PharmD [address] [place] [address] Pharmacist Internal Medicine 09/26/23 documented as of this encounter
--- OUTSIDE RECORDS SUMMARY | 2024-08-12 15:52 | XMS_ITS | Encounter Summary ---
Author Organization [employer] Address [address] [facility] [address] 7t [place] [address] Care Team Providers Care E Business Manager Name Role Phone Chun Porras MD Primary Care Provide r Lynsey Madison PharmD Unavailable [phone] Reason for Visit * Reason Onset Date Comments Med Refill 03/22/2023 Encounter Details Date Type Department Care Team (Late st Contact Info) Description 03/14/2023 Refill [facility] 230 [place] [address] Chun Porras MD 230 [place] [address] Chronic midline low back pain without sciatica [...] medication. He can be contact any time. Afghan Speaker * Telephone Encounter - Arlette Phipps [...] Description 08/21/2024 10:30 AM EST Clinical Support [facility] [address] [place] [address] Maritza Mejia RN 505 [place] [address] 09/10/2024 11:30 AM EST Office Visit [facility] [address] [place] [address] Chun Porras MD [address] [place] [address] documented as of this encounter Visit Diagnoses Diagnosis Chronic midline low back pain without sciatica documented in this encounter Additional Health Concerns Assessment Noted Time PHQ-9 Depression Total Score: 3 07/06/20 22 11:00 AM EST documented as of this encounter Care Teams E Business Manager Relationship Specialty Start Date End Date Chun Porras MD [address] [place] [address] PCP - General Internal Medicine 05/26/14 Lynsey Madison, MichaelD 230 [place] [address] Pharmacist Internal Medicine 09/26/23 documented as of this encounter
--- OUTSIDE RECORDS SUMMARY | 2024-08-12 15:52 | XMS_ITS | Encounter Summary ---
Author Organization [employer] Address [address] [facility] [address] 7t [place] [address] Care Team Providers Care Monorail Car Operator Name Role Phone Chun Porras MD Primary Care Provide r Lynsey Madison PharmD Unavailable [phone] Reason for Visit * Reason Comments Med Refill Encounter Details Date Type Department Care Team ([facility] st Contact Info) Description 10/18/2023 Refill [facility] 230 [place] [address] Chun Porras MD 230 [place] [address] Essential hypertension Social History Tobacco Use Types [...] Description 08/21/2024 10:30 AM EST Clinical Support [facility] [address] [place] [address] Maritza Mejia RN 505 [place] [address] 09/10/2024 11:30 AM EST Office Visit [facility] [address] [place] [address] Chun Porras MD [address] [place] [address] documented as of this encounter Goals Goal [...] documented as of this encounter Care Teams Monorail Car Operator Relationship Specialty Start Date End Date Chun Porras MD [address] [place] [address] PCP - General Internal Medicine 05/26/14 Lynsey Madison, MichaelD [address] [place] [address] Pharmacist Internal Medicine 09/26/23 documented as of this encounter
--- OUTSIDE RECORDS SUMMARY | 2024-08-12 15:52 | XMS_ITS | Encounter Summary ---
Author Organization [employer] Address [address] [facility] [address] 7t [place] [address] Care Team Providers Care Material Handling Equipment Stevedore Name Role Phone Chun Porras MD Primary Care Provide r Lynsey Madison PharmD Unavailable [phone] Reason for Visit * Reason Comments Med Refill Encounter Details Date Type Department Care Team ([facility] st Contact Info) Description 09/29/2023 Refill [facility] 230 [place] [address] Chun Porras MD 230 [place] [address] Type 2 diabetes mellitus without complication, unspecified whether long-term insulin use ([facility]) Social History Tobacco Use Types Packs/Day Years [...] Description 08/21/2024 10:30 AM EST Clinical Support [facility] [address] [place] [address] Maritza Mejia RN 505 [place] [address] 09/10/2024 11:30 AM EST Office Visit [facility] [address] [place] [address] Chun Porras MD [address] [place] [address] documented as of this encounter Goals Goal Patient Goal Type Associated Problems Recent Progress Patient-Stated? 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
--- OUTSIDE RECORDS SUMMARY | 2024-08-12 15:52 | XMS_ITS | Encounter Summary ---
Author Organization [employer] Address [address] [facility] [place] [facility] [address] 7t [place] [address] Care Team Providers Care Habilitation Training Specialist Name Role Phone Chun Porras MD Primary Care Provide r Lynsey Madison PharmD Unavailable [phone] Reason for Visit * Reason Comments Med Refill Encounter Details Date Type Department Care Team ([facility] st Contact Info) Description 07/04/2023 Refill [facility] 230 [place] [address] Chun Porras MD 230 [place] [address] Type 2 diabetes mellitus without complication, unspecified whether residential insulin use ([facility]) Social History [...] Description 08/21/2024 10:30 AM EST Clinical Support [facility] [address] [place] [address] Maritza Mejia RN 505 [place] [address] 09/10/2024 11:30 AM EST Office Visit [facility] [address] [place] [address] Chun Porras MD [address] [place] [address] documented as of this encounter Visit Diagnoses Diagnosis Type 2 diabetes mellitus without complication, unspecified whether long term care administrator insulin use ([facility]) documented in this encounter Additional Health Concerns Assessment Noted Time PHQ-9 Depression Total Score: 3 07/06/20 22 11:00 AM EST documented as of this encounter Care Teams Habilitation Training Specialist Relationship Specialty Start Date End Date Chun Porras MD [address] [place] [address] PCP - General Internal Medicine 05/26/14 Lynsey Madison, Sherwin [address] [place] [address] Pharmacist Internal Medicine 09/26/23 documented as of this encounter
--- OUTSIDE RECORDS SUMMARY | 2024-08-12 15:52 | XMS_ITS | Encounter Summary ---
Author Organization [employer] Address [address] [facility] [address] 7t [place] [address] Care Team Providers Care Technical Account Representative Name Role Phone Chun Porras MD Primary Care Provide r Lynsey Madison PharmD Unavailable [phone] Reason for Visit * Reason Comments Med Refill Encounter Details Date Type Department Care Team ([facility] st Contact Info) Description 06/21/2023 Refill [facility] 230 [place] [address] Chun Porras MD 230 [place] [address] Type 2 diabetes mellitus without complication, unspecified whether oil heaterman insulin use ([facility]); Mixed hyperlipidemia Social History Tobacco Use Types [...] Description 08/21/2024 10:30 AM EST Clinical Support [facility] [address] [place] [address] Mraitza Mejia RN 505 [place] [address] 09/10/2024 11:30 AM EST Office Visit [facility] [address] [place] [address] Chun Porras MD [address] [place] [address] documented as of this encounter Visit Diagnoses Diagnosis Type 2 diabetes mellitus without complication, unspecified whether oil heaterman insulin use ([facility]) Mixed hyperlipidemia documented in this encounter Additional Health Concerns Assessment Noted Time PHQ-9 Depression Total Score: 3 07/06/20 22 11:00 AM EST documented as of this encounter Care Teams Technical Account Representative Relationship Specialty Start Date End Date Chun Porras MD [address] [place] [address] PCP - General Internal Medicine 05/26/14 Lynsey Madison PharmD [address] [place] [address] Pharmacist Internal Medicine 09/26/23 documented as of this encounter
--- OUTSIDE RECORDS SUMMARY | 2024-08-12 15:52 | XMS_ITS | Encounter Summary ---
Author Organization [employer] Address [address] 7t [place] [address] Care Team Providers Care Master Hearth Technician Name Role Phone Chun Porras MD Primary Care Provide r Lynsey Madison PharmD Unavailable [phone] Reason for Visit * Reason Comments Med Refill Encounter Details Date Type Department Care Team ([facility] st Contact Info) Description 07/20/2022 Refill [facility] 230 [place] [address] Chun Porras MD 230 [place] [address] Chronic midline low back pain without sciatica [...] Description 08/21/2024 10:30 AM EST Clinical Support [facility] [address] [place] [address] Maritza Mejia, RN 505 [place] [address] 09/10/2024 11:30 AM EST Office Visit [facility] [address] [place] [address] Chun Porras MD [address] [place] [address] documented as of this encounter Visit Diagnoses Diagnosis Chronic midline low back pain without sciatica documented in this encounter Additional Health Concerns Assessment Noted Time PHQ-9 Depression Total Score: 3 07/06/20 22 11:00 AM EST documented as of this encounter Care Teams Master Hearth Technician Relationship Specialty Start Date End Date Chun Porras MD [address] [place] [address] PCP - General Internal Medicine 05/26/14 Lynsey Madison PharmD [address] [place] [address] Pharmacist Internal Medicine 09/26/23 documented as of this encounter
--- OUTSIDE RECORDS SUMMARY | 2024-08-12 15:52 | XMS_ITS | Encounter Summary ---
Author Organization [employer] Address [address] [facility] [address] 7t [place] [address] Care Team Providers Care Rail Walker Name Role Phone Chun Porras MD Primary Care Provide r Lynsey Madison PharmD Unavailable [phone] Encounter Details Date Type Department Care Team [...] Description 08/21/2024 10:30 AM EST Clinical Support [facility] [address] [place] [address] Maritza Mejia RN 505 [place] [address] 09/10/2024 11:30 AM EST Office Visit [address] [address] Chun Porras MD [address] [place] [address] documented as of this encounter Goals Goal [...] (08/09/2024 9:15 AM EST) Pathologist [facility] TROPONIN I HIGH SENSITIVITY <2.7 <3.5 - 35.0 ng/L [facility] Comment:The Wheeler high sens itivity Troponin-I results should beused in conjunction with other diagnostic information suchas ECG, clinical observations and information, and patientsymptoms to aid in the diagnosis of MO. 08/09/2024 9:15 AM EST 08/09/2024 9:19 AM EST us Generic External Data Provider LAB BLOOD ORDERAB LES Final Result [facility] [address] [place], [place] [phone] * (ABNORMAL) Basic Metabolic Panel (08/09/2024 9:15 AM EST) [facility] Sodium 139 135 - 145 mmol/L [facility] Potassium 3.8 3.3 - 5.1 mmol/L [facility] Chloride 107 96 - 108 mmol/L [facility] Carbon Dioxide 23 22 - 29 mmol/L [facility] Anion Gap 13 12 - 20 [facility] Urea Nitrogen (BUN) 21(H) 9 - 16 mg/dL [facility] Creatinine, Serum 0.81 0.5 - 1.4 mg/dL [facility] Creatinine Clr Calc Pharmacy 92.6 [facility] Comment:eGFR (calculated fro m the MDRD study equation) and eCrCl(calculated from the Cockcroft-Gault equation) are based ondifferent parameters and may not yield comparable results.If eCrCl result is absurd, please check patient'sheight/weight. Estimated Glomerular Filt Rate >60 [facility] Comment:Chronic Kidney Disea se: Estimated GFR < 60 mL/min/1.22n8Spissy Kidney Disease: Estimated GFR < 15 mL/min/1.73m2 Glucose 100 60 - 115 mg/dL [facility] Calcium 9.7 8.4 - 10.2 mg/dL [facility] 08/09/2024 9:15 AM EST 08/09/2024 9:19 AM EST us Generic External Data Provider LAB BLOOD ORDERAB LES Final Result [facility] [address] [place] [address] [phone] * (ABNORMAL) CBC auto differential (08/09/2024 9:15 AM EST) White Blood Count 8.6 4.8 - 10.8 X10*3/uL [facility] Red Blood Count 4.95 4.60 - 5.80 X10*6/uL [facility] Hemoglobin 14.6 14.0 - 18.0 g/dl [facility] Hematocrit 42.6 42.0 - 52.0 % [facility] Mean Corpuscular Volume 86.1 80.0 - 98.0 fL [facility] Mean Corpuscular Hemoglobin 29.5 27.0 - 33.0 pg [facility] Mean Corpuscular HGB Conc 34.3 31.0 - 36.0 g/dl [facility] Red Cell Distribution Width 12.5 11.0 - 16.0 % [facility] Platelet Count 277 160 - 400 X10*3/uL [facility] Mean Platelet Volume 9.5 9.4 - 12.4 fL [facility] Neutrophils Percent Auto 48.6 45 - 73 % [facility] Imm Gran Pct Auto 0.2 0.0 - 0.4 % [facility] Lymphocytes Percent Auto 31.2 20 - 40 % [facility] Monocytes Percent Auto 13.5(H) 2 - 11 % [facility] Eosinophils Percent Auto 5.8(H) 0 - 4 % [facility] Basophils Percent Auto 0.7 0 - 2 % [facility] NRBC Pct Auto 0.0 0.0 - 0.2 /100WBC [facility] Neutrophils Absolute Auto 4.2 2.0 - 8.3 x10*3/uL [facility] Imm Gran Abs Auto 0.02 0.00 - 0.03 X10*3/uL [facility] Lymphocytes Absolute Auto 2.7 1.2 - 4.9 X10*3/uL [facility] Monocytes Absolute Auto 1.2 0.1 - 1.2 X10*3/uL [facility] Eosinophils Absolute Auto 0.5(H) 0.0 - 0.4 X10*3/uL [facility] Basophils Absolute Auto 0.1 0.0 - 0.2 X10*3/uL [facility] NRBC Abs Auto 0.000 0.0 - 0.012 X10*3/uL [facility] 08/09/2024 9:15 AM EST 08/09/2024 9:19 AM EST us Generic External Data Provider LAB BLOOD ORDERAB LES Final Result Performing Organization Address City/State/[facility] Co de Phone Number [facility] [address] [place] [address] [phone] documented in this encounter Visit Diagnoses Not on filedocumented in this encounter Additional Health Concerns Assessment Noted Time PHQ-9 Depression Total Score: 1 11/12/19 24 11:09 AM EDT documented as of this encounter Care Teams Rail Walker Relationship Specialty Start Date End Date Chun Porras MD [address] [place] [address] PCP - General Internal Medicine 05/26/14 Lynsey Madison PharmD 230 [place] [address] Pharmacist Internal Medicine 09/26/23 documented as of this encounter
--- OUTSIDE RECORDS SUMMARY | 2024-08-12 15:52 | XMS_ITS | Encounter Summary ---
Author Organization [employer] Address [address] [facility] [address] 7t [place] [address] Care Team Providers Care Scalp Treatment Operator Name Role Phone hCun Porras MD Primary Care Provide r Lynsey Madison PharmD Unavailable [phone] Reason for Visit * Reason Comments Med Refill Encounter Details Date Type Department Care Team ([facility] st Contact Info) Description 07/14/2024 Refill [facility] 230 [place] [address] Lynsey Madison, PharmD 230 [place] [address] Essential hypertension Social History Tobacco Use Types [...] the past 12 months, has t he [employer] gas, oil or water company threatened to [...] Description 08/21/2024 10:30 AM EST Clinical Support [facility] [address] [place] [address] Maritza Mejia RN 505 [place] [address] 09/10/2024 11:30 AM EST Office Visit [address] [address] Chun Porras MD [address] [place] [address] documented as of this encounter Goals Goal [...] documented as of this encounter Care Teams Scalp Treatment Operator Relationship Specialty Start Date End Date Chun Porras MD [address] [place] [address] PCP - General Internal Medicine 05/26/14 Lynsey Madison PharmD [address] [place] [address] Pharmacist Internal Medicine 09/26/23 documented as of this encounter
--- OUTSIDE RECORDS SUMMARY | 2024-08-12 15:52 | XMS_ITS | Encounter Summary ---
Author Organization [employer] Address [address] [facility] [address] 7t [place] [address] Care Team Providers Care Appliance Line Assembler Name Role Phone Chun Porras MD Primary Care Provide r Lynsey Madison PharmD Unavailable [phone] Encounter Details Date Type Department Care Team ([facility] Contact Info) Description 11/14/2022 Abstract [facility] 230 [place] [address] Chun Porras MD 230 [place] [address] Social History Tobacco Use Types Packs/Day Years [...] Description 08/21/2024 10:30 AM EST Clinical Support [facility] [address] [place] [address] [place] [address] Maritza Mejia, RN 505 [place] [address] 09/10/2024 11:30 AM EST Office Visit [facility] [address] [place] [address] [place] [address] Chun Porras MD 230 [facility] [place] [address] documented as of this encounter Procedures Procedure Name Priority Date/Time Associated Diagnosis Comments COLONOSCOPY Routine 07/27/2020 documented in this encounter Results * Colonoscopy (07/27/2020) Colonoscopy Normal Normal 07/27/2020 Narrative Blossom Hinkle - 07/27/2020 2:25 PM EST Recommended 5 year follow up ( see GI note 08/17/2020) us Historical Provider [facility] Edited Result - Final documented in this encounter Visit Diagnoses Not on filedocumented in this encounter Additional Health Concerns Assessment Noted Time PHQ-9 Depression Total Score: 3 07/06/20 22 11:00 AM EST documented as of this encounter Care Teams Appliance Line Assembler Relationship Specialty Start Date End Date Chun Porras MD [facility] [place] [address] PCP - General Internal Medicine 05/26/14 Lynsey Madison PharmD [address] [place] [address] [place] [address] Pharmacist Internal Medicine 09/26/23 documented as of this encounter
--- OUTSIDE RECORDS SUMMARY | 2024-08-12 15:52 | XMS_ITS | Encounter Summary ---
Author Organization [employer] Address [address] [facility] [address] 7t [place] [address] Care Team Providers Care Oven Roaster Name Role Phone Chun Porras MD Primary Care Provide r Lynsey Madison PharmD Unavailable [phone] Reason for Visit * Reason Comments Med Refill Encounter Details Date Type Department Care Team ([facility] st Contact Info) Description 09/18/2023 Refill [facility] 230 [place] [address] Chun Porras MD 230 [place] [address] Mixed hyperlipidemia Social History Tobacco Use Types [...] Description 08/21/2024 10:30 AM EST Clinical Support [facility] [address] [place] [address] Maritza Mejia RN 505 [place] [address] 09/10/2024 11:30 AM EST Office Visit [facility] [address] [place] [address] Chun Porras MD [address] [place] [address] documented as of this encounter Goals Goal [...] documented as of this encounter Care Teams Oven Roaster Relationship Specialty Start Date End Date Chun Porras MD [address] [place] [address] PCP - General Internal Medicine 05/26/14 Lynsey Madison PharmD [address] [place] [address] Pharmacist Internal Medicine 09/26/23 documented as of this encounter
--- OUTSIDE RECORDS SUMMARY | 2024-08-12 15:52 | XMS_ITS | Encounter Summary ---
Author Organization [employer] Address [address] [facility] [address] [place] [address] Care Team Providers Care Jewelry Inspector Name Role Phone Chun Porras MD Primary Care Provide r Lynsey Madison PharmD Unavailable [phone] Reason for Visit * Reason Comments Med Refill Encounter Details Date Type Department Care Team ([facility] st Contact Info) Description 11/14/2023 Refill [facility] 230 [place] [address] Chun Porras MD 230 [place] [address] Chronic midline low back pain without sciatica [...] 10:30 AM EST Clinical Support [facility] [address] [place] [address] Maritza Mejia, SANDRA 505 [place] [address] 09/10/2024 11:30 AM EST Office Visit [facility] [address] [place] [address] Chun Porras MD [address] [place] [address] documented as of this encounter Goals Goal [...] documented as of this encounter Care Teams Jewelry Inspector Relationship Specialty Start Date End Date Chun Porras MD [address] [place] [address] PCP - General Internal Medicine 05/26/14 Lynsey Madison, Sherwin [address] [place] [address] Pharmacist Internal Medicine 09/26/23 documented as of this encounter
--- OUTSIDE RECORDS SUMMARY | 2024-08-12 15:52 | XMS_ITS | Clinical Summary ---
Author Organization [employer] Address [address] [facility] 7t [place] [address] Care Team Providers Care Track Fitter Name Role Phone Chun Porras MD Primary Care Provide r Lynsey Madison PharmD Unavailable [phone] Allergies No known active allergies Medications Blood [...] 2 diabetes mellitus without complication, unspecified whether usp insulin use ([facility]) TEST BLOOD SUGAR TWICE DAILY 100 strip [...] complication, 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 ([facility]) TAKE 1 TABLET BY MOUTH EVERY MORNING [...] complication, 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 ([facility]) TAKE 2 TABLETS BY MOUTH ONCE DAILY [...] 2 diabetes mellitus without complication, unspecified whether usp insulin use ([facility]) TEST BLOOD SUGAR TWICE DAILY 100 each 5 025 Active TRUEplus Lancets 33G miscIndications:T ype 2 diabetes mellitus without complication, unspecified whether usp insulin use ([facility]) TEST BLOOD SUGAR TWICE DAILY 100 each 5 024 2024 Discontinued metoprolol tartrate (Lopressor) 50 MG tabletIndications :Essential hypertension TAKE 1 TABLET BY MOUTH TWICE DAILY IN THE MORNING AND IN THE EVENING WITH FOOD 180 tablet 024 2023 Discontinued Active Problems Problem Noted Date Diagnosed Date [...] a second opinion Will refer to our [facility] Derm clinic Intermittent chest pain 03/07/2023 Assessment [...] AM EDT): Patient previously seen at our [facility] by Dr Praveen Wagoner with a concern [...] EDT): Patient previously seen here at our [facility] by Dr Praveen Wagoner with a concern [...] EDT): Patient previously seen here at our [facility] by Dr Praveen Wagoner with a concern [...] by Ирина SWENSON and was referred to [facility] Dr Meyer for Pulmonary clearance. Pt was [...] (Updated 08/22/2023) - Patient transferred medications from [facility] to [facility] and was not pleased with results. [...] Eye Exam Plan: - Referral sent for [facility] Optometry - Continue with current therapy and [...] L3-L4. Milder degenerative changes at remaining levels. [facility] gave him a steroid injection back in [...] i\used to be under the care of [facility], last seen last 03/09/2019 Back in 06/20/2017 [...] L3-L4. Milder degenerative changes at remaining levels. [facility] gave him one last Tramadol prescription and [...] i\used to be under the care of [facility], last seen last 03/09/2019 Back in 06/20/2017 [...] he tells me he was referref by [facility]. I asked him to find out so I can request records [facility] gave him one last Tramadol prescription and [...] Chest tubes in the past. Admitted to [facility] from 12/18-06/2014 because of spontaneous right pneumothorax. Treated with chest tube, and had bronchoscopy with right parietal pleurectomy, multiple wedge resections of blebs of right upper and middle lobes. kellen 1 antitrypsin was normal Pt was being followed by pulmonology at [facility], he now tells me the barrel raiser helper left and they did not assign him [...] Chest tubes in the past. Admitted to [facility] from 12/18-06/2014 because of spontaneous right pneumothorax. Treated with chest tube, and had bronchoscopy with right parietal pleurectomy, multiple wedge resections of blebs of right upper and middle lobes. kellen 1 antitrypsin was normal Pt was being followed by pulmonology at [facility], he now tells me the barrel raiser helper left and they did not assign him [...] Chest tubes in the past. Admitted to [facility] from 12/18-06/2014 because of spontaneous right pneumothorax. Treated with chest tube, and had bronchoscopy with right parietal pleurectomy, multiple wedge resections of blebs of right upper and middle lobes. kellen 1 antitrypsin was normal Pt was being followed by pulmonology at [facility], he now tells me the barrel raiser helper left and they did not assign him [...] Chest tubes in the past. Admitted to [facility] from 12/18-06/2014 because of spontaneous right pneumothorax. Treated with chest tube, and had bronchoscopy with right parietal pleurectomy, multiple wedge resections of blebs of right upper and middle lobes. kellen 1 antitrypsin was normal Pt was being followed by pulmonology at [facility], he now tells me the barrel raiser helper left and they did not assign him [...] with moderate depression. Under the care of [facility]. Currently on a regimen of: Clonidine 0.1 mg po qhs Pt denies Suicidal ideation at the moment. Patient denies any suicidal ideation or thoughts, Patient has crisis numbers and knows to use them if needed. Assessment & Plan (11/20/2022 1:22 PM EDT): Pt with moderate depression. Under the care of [facility]. Currently on a regimen of: Clonidine 0.1 mg po qhs Pt denies Suicidal ideation at the moment. Patient denies any suicidal ideation or thoughts, Patient has crisis numbers and knows to use them if needed. Encounters Date Type Department Care Team Description 08/09/2024 Orders Only GENERIC EXTERNAL DATA DEPARTMENT Provider, Generic External Data 07/31/2024 Refill [facility] [address] [place] [address] Simran Panda ANP Type 2 diabetes mellitus without complication, unspecified whether usp insulin use ([facility]) 07/14/2024 Refill [facility] [address] [place] [address] Lynsey Madison, MichaelD Essential hypertension 07/13/2024 Refill [facility] [address] [place] [address] Maritza Mejia RN Chronic midline low back pain without sciatica 07/13/2024 Telephone [facility] [address] [place] [address] Chun Porras MD 06/30/2024 Telephone [facility] [address] [place] [address] Lissett Cortes MA Aug. Recall 06/24/2024 6:20 PM EST Office Visit [facility] [address] [place], [place] [phone] Buddy Gr MD Seborrheic dermatitis (Primary Dx) 06/15/2024 Refill [facility] [address] [place] [phone] Chun Porras MD Chronic midline low back pain without sciatica 06/09/2024 2:00 PM EST Office Visit [facility] [address] [place] [phone] Chun Porras MD Type 2 diabetes mellitus without complication, 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 (CMS/HCC) (Primary Dx); Essential hypertension; Encounter for immunization; Pulmonary emphysema, unspecified emphysema type (CMS/HCC); Gastroesophageal reflux disease without esophagitis; Odynophagia; Intermittent chest pain 06/09/2024 Travel 05/28/2024 Patient Outreach [facility] [address] [place] [address] Chun Porras MD Pre-visit Planning (SDOH screening was completed on 11/04/2023 / Message sent to team nurse ) 05/25/[address] [address] Chun Porras MD Chart Prep 05/15/2024 11:00 AM EDT Clinical Support [address] [address] Maritza Mejia RN Chronic midline low back pain without sciatica 05/15/[address] [address] Maritza Mejia RN 05/15/2024 Refill [facility] [address] [place] [address] Maritza Mejia, computer consultant midline low back pain without sciatica 05/15/2024 Travel from Last 3 Months Immunizations Name Administration Dates Next Due Influenza injectable quadriv alent IIV4 with preservative 05/03/2016,04/26/2015 Influenza injectable quadriv alent preservative free 04/10/2022,06/13/2021,05/26/2019,07/03,06/20/2017 Influenza, High Dose Seasona l, Preservative Free 06/09/2024 Influenza, IIV3, injectable 06/14/2014 Moderna Covid-19 Vaccine 12+ 10/20/2020,09/23/19 21 Pfizer Covid-19 Vaccine 12+ 06/09/2024, 1 Pfizer Covid-19 Vaccine 12+ Bivalent 05/16/2022 Pfizer [...] AM EST Clinical Support [facility] [address] [place] [address] Maritza Mejia RN [address] [place] [address] 09/10/2024 11:30 AM EST Office Visit [facility] [address] [place] [phone] Chun Porras MD [address] [place] [address] Health Maintenance Due Date Last Done Comments [...] Completed 12/20/2022 , 08/01/2021, 06/05/2021 Pneumococcal Vaccine: 50+ Years Completed 01/22/2023, 08/02/2014 COVID-19 Vaccine Completed [...] 5:58 PM EST) No Lynsey Madison, Sherwin Procedures Procedure Name Priority Date/Time Associated Diagnosis Comments HIGH SENSITIVITY TROPONIN I Routine 08/09/2024 9:15 AM EST BASIC METABOLIC PANEL Routine 08/09/2024 9:15 AM EST CBC WITH AUTO DIFFERENTIAL Routine 08/09/2024 9:15 AM EST POCT GLYCATED HEMOGLOBIN, TOTAL Routine 06/09/2024 2:07 PM EST Type 2 diabetes mellitus without complication, 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 ([facility]) POCT GLUCOSE Routine 06/09/2024 2:01 PM EST Type 2 diabetes mellitus without complication, unspecified whether usp insulin use ([facility]) HEMATOXYLIN AND EOSIN STAIN Routine 05/21/2024 12:29 [...] of2 resultswithin the time period is included. [facility] TROPONIN I HIGH SENSITIVITY <2.7 <3.5 - 35.0 ng/L [facility] Comment:The Wheeler high sens itivity Troponin-I results should beused in conjunction with other diagnostic information suchas ECG, clinical observations and information, and patientsymptoms to aid in the diagnosis of [place]. 08/09/2024 9:15 AM EST 08/09/2024 9:19 AM EST us Generic External Data Provider LAB BLOOD ORDERAB LES Final Result [facility] [address] [place] [phone] * (ABNORMAL) CBC auto differential (08/09/2024 9:15 AM EST) [facility] White Blood Count 8.6 4.8 - 10.8 X10*3/uL [facility] Red Blood Count 4.95 4.60 - 5.80 X10*6/uL [facility] Hemoglobin 14.6 14.0 - 18.0 g/dl [facility] Hematocrit 42.6 42.0 - 52.0 % [facility] Mean Corpuscular Volume 86.1 80.0 - 98.0 fL [facility] Mean Corpuscular Hemoglobin 29.5 27.0 - 33.0 pg [facility] Mean Corpuscular HGB Conc 34.3 31.0 - 36.0 g/dl [facility] Red Cell Distribution Width 12.5 11.0 - 16.0 % [facility] Platelet Count 277 160 - 400 X10*3/uL [facility] Mean Platelet Volume 9.5 9.4 - 12.4 fL [facility] Neutrophils Percent Auto 48.6 45 - 73 % [facility] Imm Gran Pct Auto 0.2 0.0 - 0.4 % [facility] Lymphocytes Percent Auto 31.2 20 - 40 % [facility] Monocytes Percent Auto 13.5(H) 2 - 11 % [facility] Eosinophils Percent Auto 5.8(H) 0 - 4 % [facility] Basophils Percent Auto 0.7 0 - 2 % [facility] NRBC Pct Auto 0.0 0.0 - 0.2 /100WBC [facility] Neutrophils Absolute Auto 4.2 2.0 - 8.3 x10*3/uL [facility] Imm Gran Abs Auto 0.02 0.00 - 0.03 X10*3/uL [facility] Lymphocytes Absolute Auto 2.7 1.2 - 4.9 X10*3/uL [facility] Monocytes Absolute Auto 1.2 0.1 - 1.2 X10*3/uL [facility] Eosinophils Absolute Auto 0.5(H) 0.0 - 0.4 X10*3/uL [facility] Basophils Absolute Auto 0.1 0.0 - 0.2 X10*3/uL [facility] NRBC Abs Auto 0.000 0.0 - 0.012 X10*3/uL [facility] 08/09/2024 9:15 AM EST 08/09/2024 9:19 AM EST us Generic External Data Provider LAB BLOOD ORDERAB LES Final Result [facility] [address] [place] [phone] * (ABNORMAL) Basic Metabolic Panel (08/09/2024 9:15 AM EST) Sodium 139 135 - 145 mmol/L [facility] Potassium 3.8 3.3 - 5.1 mmol/L [facility] Chloride 107 96 - 108 mmol/L [facility] Carbon Dioxide 23 22 - 29 mmol/L [facility] Anion Gap 13 12 - 20 [facility] Urea Nitrogen (BUN) 21(H) 9 - 16 mg/dL [facility] Creatinine, Serum 0.81 0.5 - 1.4 mg/dL [facility] Creatinine Clr Calc Pharmacy 92.6 [facility] Comment:eGFR (calculated fro m the MDRD study equation) and eCrCl(calculated from the Cockcroft-Gault equation) are based ondifferent parameters and may not yield comparable results.If eCrCl result is absurd, please check patient'sheight/weight. Estimated Glomerular Filt Rate >60 [facility] Comment:Chronic Kidney Disea se: Estimated GFR < 60 mL/min/1.40f3Cjgaya Kidney Disease: Estimated GFR < 15 mL/min/1.73m2 Glucose 100 60 - 115 mg/dL [facility] Calcium 9.7 8.4 - 10.2 mg/dL [facility] 08/09/2024 9:15 AM EST 08/09/2024 9:19 AM EST us Generic External Data Provider LAB BLOOD ORDERAB LES Final Result [facility] [address] [place] [phone] * POCT HGB A1C (06/09/2024 2:07 PM EST) Hemoglobin A1C 5.9 4.0 - 6.0 % QC Media Lot # [id number] Lot# Expiration Date 8816,026 Blood 06/09/2024 2:07 PM EST us Chun Mckinley MD POINT OF CARE TEST EN TER/EDIT ORDERABLES Final Result * POCT Glucose (06/09/2024 2:01 PM EST) Glucose Blood, POC 122 60 - 200 mg/dL QC Media Lot # [id number] Lot# Expiration Date [id number] Blood Capillary blood specimen / Unknown 06/09/2024 2:01 PM EST us Chun Mckinley MD POINT OF CARE TEST EN TER/EDIT ORDERABLES Final Result * Hematoxylin and Eosin Stain (05/21/2024 12:29 PM EST) 05/21/2024 12:2 9 PM EST 05/21/2024 1:05 PM EST Narrative [facility] - 05/25/2024 8:50 AM EST ----- ------- Name: Francisco J Romeo ?Age/Sex: 64/M ? : 1960 Unit#: [id number] ?? Attend Dr: David Brown MD ?Re05/21/24 ?Status: DEP SDC ? Location: HO.SSS ?Disch: ? ----- ------- SPEC : [id number] ? RECD: 05/21/24-024 ? STATUS: ??SOUT ? REQ NUM: [id number] ? TONI: 05/21/24-1229 ? SUBM DR: David Brown MD ? ENTERED: ??05/21/24-130 ?SP TYPE: Surgical ? OTHR DR: Chun [...] formalin labeled ?GE junction bx? are 2 deng- white and molina-pink irregular tissue fragments each measuring 0.25 cm, submitted in toto in a cassette labeled B. ??CEDS Special studies ordered and performed: Immunostain for H. pylori on A; AB/PAS stains on B ? CONTINUED ON NEXT PAGE ----- ------- Name: Francisco J Romeo ?Age/Sex: 64/M ? : 1960 Unit#: [id number] ?? Attend Dr: David Brown MD ?Re05/21/24 ?Status: DEP SDC ? Location: HO.SSS ?Disch: ? ----- ------- SPEC : [id number] ? RECD: 05/21/24-6286 ? STATUS: ??SOUT ? REQ NUM: [id number] ? TONI: 05/21/24-1229 ? SUBM DR: David Brown MD ? ENTERED: ??05/21/24-1309 ?SP TYPE: Surgical ? OTHR DR: Chun Michel MD ?? ORDERED: ??HE Stain/6, Gross Micro L4/2, IHC, Special st. 2, H. pylori, AB/PAS ? Copies To: ?? Chun Michel MD ?? [facility] ?? [address] ?? [place] [address] ?? [phone] ?? David Brown MD ?? [facility] ?? [address] ?? [place] [address] ?? [phone] ----- ------- Signed (signature on file) Jose Cardenas MD 05/25/24 0469 ? ----- ------- ? END OF REPORT ? us Generic External Data Provider LAB BLOOD ORDERAB LES Final Result [facility] [address] [place] [phone] * (ABNORMAL) Glucose, Whole Blood (05/21/2024 11:46 AM EST) [facility] Glucose, Whole Blood 131(H) 60 - 115 mg/dL [facility] Comment:METER #: [id number] 05/21/2024 11:4 6 AM EST 05/21/2024 12:06 PM EST Generic External Data Provider LAB BLOOD ORDERAB LES Final Result Performing Organization Address [facility] Number [facility] [address] [place] [phone] * D Dimer High Sensitivity (05/19/2024 3:42 AM EST) [facility] D Dimer High Sensitivity <150 NG/ML [facility] Comment:D-DIMER HS REFERENCE RANGENote: Our assay reports D-Dimer Units (D- DU).The cut-off value for venous thromboembolic (VTE) disease is230 ng/mL. This value has a very high negative predictivevalue when the patient has a low to moderate clinicalprobability of VTE.The upper limit of normal is 243 ng/mL. 05/19/2024 3:4 2 AM EST 05/19/2024 3:44 AM EST Generic External Data Provider LAB BLOOD ORDERAB LES Final Result Performing Organization Address [facility] de Phone Number [facility] [address] [place] [phone] * POCT LORENA-14 Urine Drug Screen (05/15/2024 10:30 AM EDT) [facility] THC Positive Urine Urine specimen obtained by clean catch procedure / Unknown 05/15/2024 10:30 AM EDT Narrative Maritza Mejia RN - 05/15/2024 10:30 AM EDT .UTOX cup Lot#[id number] Exp. 06/20/25 Internal Pass Control Chun Mckinley MD POINT OF CARE TEST ENTER/EDIT ORDERABLES Edited Result - Final * Hepatitis C Antibody with Reflex to HCV, RNA, Quantitative, Real-Time PCR (12/20/2022 10:56 AM EDT) Hepatitis C Antibody NON-REACT FABRICIO NON-REACT FABRICIO [facility] Index 0.13 <1.00 [facility] Comment: HCV antibody was non-reactive. There is no laboratory evidence of HCV infection. In most cases, no further action is required. However, if recent HCV exposure is suspected, a test for HCV RNA (test code 05321) is suggested. For additional information please refer to http://education.[place]/faq/TPT58m2 (This link is being provided for informational/ educational purposes only.) Blood Venous blood specimen / Unknown 12/20/2022 10:56 AM EDT 12/20/2022 10:56 AM EDT Narrative [facility] - 12/21/2022 5:38 AM EDT FASTING:YES FASTING: YES Chun Mckinley MD LAB BLOOD ORDERABLES Final Result [facility] [address], [place] [address] [facility] [address] [place] [phone] * Lipid Panel, Standard (11/09/2022 11:21 AM EDT) Cholesterol, Total 138 <200 mg/dL [facility] HDL Cholesterol 54 > OR = 40 mg/dL [facility] Triglycerides 131 <150 mg/dL [facility] LDL Cholesterol 63 mg/dL (calc) [facility] Comment: Reference range: <100 Desirable range <100 mg/dL for primary prevention; ?? <70 mg/dL for patients with CHD or diabetic patients with > or = 2 CHD risk factors. LDL-C is now calculated using the Trever calculation, which is a validated novel method providing better accuracy than the Friedewald equation in the estimation of LDL-C. Manav ERICKSON et al. DIONICIO. 2013;310(19): 5890-4966 (http://education.[place]gorod/faq/CIJ151) Chol/HDLC Ratio 2.6 <5.0 (calc) [facility] Non-HDL Cholesterol 84 <130 mg/dL (calc) [facility] Comment: For patients with diabetes plus 1 major ASCVD risk factor, treating to a non-HDL-C goal of <100 mg/dL (LDL-C of <70 mg/dL) is considered a therapeutic option. Blood Venous blood specimen / Unknown 11/09/2022 11:21 AM EDT 11/09/2022 11:21 AM EDT Narrative [facility] - 11/10/2022 8:06 AM EDT FASTING:NO FASTING: NO Colleen Lou RISK PREVENTION ENGINEER LAB BLOOD ORDERABLES Final Resu lt [facility] [address], [place] [address] [facility] [address] [place] [phone] * Colonoscopy (07/27/2020) Colonoscopy Normal Normal 07/27/2020 Blossom Spencer - 07/27/2020 2:25 PM EST Recommended 5 year follow up ( see GI note 08/17/2020) Historical Provider HEALTH MAINTENANCE Edited Result - Final from Last 3 Months or Most Recently Relevant to Health Maintenance Insurance [facility] Care Teams Track Fitter Relationship Specialty Start Date End Date Chun Porras MD [address] [place] [address] PCP - General Internal Medicine 05/26/14 Lynsey Madison PharmD [address] [place] [address] Pharmacist Internal Medicine 09/26/23
--- OUTSIDE RECORDS SUMMARY | 2024-08-12 15:52 | XMS_ITS | Encounter Summary ---
Author Organization [employer] Address [address] [facility] [address] [place] [address] Care Team Providers Care Lining Layer Name Role Phone Chun Porras MD Primary Care Provide r Lynsey Madison PharmD Unavailable [phone] Reason for Visit * Reason Comments Med Refill Encounter Details Date Type Department Care Team ([facility] st Contact Info) Description 04/23/2023 Refill [facility] [address] [place] [address] Chun Porras MD [address] [place] [address] Benign prostatic hyperplasia with lower urinary tract [...] Clinical Support [facility] [address] [place] [phone] Maritza Mejia RN [address] [place] [address] 09/10/2024 11:30 AM EST Office Visit [facility] [address] [place] [phone] Chun Porras MD [address] [place] [phone] documented as of this encounter Visit Diagnoses Diagnosis Benign prostatic hyperplasia with lower urinary tract symptoms documented in this encounter Additional Health Concerns Assessment Noted Time PHQ-9 Depression Total Score: 3 07/06/20 22 11:00 AM EST documented as of this encounter Care Teams Lining Layer Relationship Specialty Start Date End Date Chun Porras MD [address] [place] [phone] PCP - General Internal Medicine 05/26/14 Lynsey Madison PharmD [address] [place] [phone] Pharmacist Internal Medicine 09/26/23 documented as of this encounter
--- OUTSIDE RECORDS SUMMARY | 2024-08-12 15:52 | XMS_ITS | Encounter Summary ---
Author Organization [employer] Address [address] [facility] [address] [place] [address] Care Team Providers Care Field Artillery Operations Specialist Name Role Phone Chun Porras MD Primary Care Provide r Lynsey Madison PharmD Unavailable [phone] Reason for Visit * Reason Comments Med Refill Encounter Details Date Type Department Care Team ([facility] st Contact Info) Description 11/14/[address] [facility] [address] [place] [address] Chun Porras MD [address] [place] [address] Chronic midline low back pain without sciatica [...] Description 08/21/2024 10:30 AM EST Clinical Support [facility] [address] [place] [phone] Maritza Mejia, SANDRA [address] [place] [address] 09/10/2024 11:30 AM EST Office Visit [facility] [address] [place] [address] Chun Porras MD [address] [place] [phone] documented as of this encounter Goals Goal [...] documented as of this encounter Care Teams Field Artillery Operations Specialist Relationship Specialty Start Date End Date Chun Porras MD [address] [place] [phone] PCP - General Internal Medicine 05/26/14 Lynsey Madison, Sherwin [address] [place] [address] Pharmacist Internal Medicine 09/26/23 documented as of this encounter
--- OUTSIDE RECORDS SUMMARY | 2024-08-12 15:52 | XMS_ITS | Encounter Summary ---
Author Organization [employer] Address [address] [facility] [address] 7[address] [place] [address] Care Team Providers Care Low Raw Sugar Cutter Name Role Phone Chun Porras MD Primary Care Provide r Lynsey Madison PharmD Unavailable [phone] Encounter Details Date Type Department Care Team ([facility] Contact Info) Description 07/13/2024 Telephone [facility] [address] [place], [place] [phone] Chun Porras MD [address] [place] [address] Social History Tobacco Use Types Packs/Day Years [...] 07/13/2024 3:34 PM EST Received fax from [facility] requesting refill on Tramadol 50 mg. documented in this encounter Plan of Treatment Upcoming Encounters Date Type Department Care Team (Late st Contact Info) Description 08/21/2024 10:30 AM EST Clinical Support [facility] [address] [place] [address] Maritza Mejia RN [address] [place] [address] 09/10/2024 11:30 AM EST Office Visit [facility] [address] [place] [address] Chun Porras MD [address] [place] [address] documented as of this encounter Goals Goal [...] documented as of this encounter Care Teams Low Raw Sugar Cutter Relationship Specialty Start Date End Date Chun Porras MD [address] [place] [address] PCP - General Internal Medicine 05/26/14 Lynsey Madison, PharmD [address] [place] [address] Pharmacist Internal Medicine 09/26/23 documented as of this encounter
--- OUTSIDE RECORDS SUMMARY | 2024-08-12 15:52 | XMS_ITS | Encounter Summary ---
Author Organization [employer] Address 75 [facility] [address] 7t [place] [address] Care Team Providers Care Cabin Crew Name Role Phone Chun Porras MD Primary Care Provide r Lynsey Madison PharmD Unavailable [phone] Reason for Visit * Reason Comments Med Refill Encounter Details Date Type Department Care Team ([facility] st Contact Info) Description 04/21/2023 Refill [facility] [address] [place] [address] Name, MD Cristhian [address] [place] [address] Essential hypertension Social History Tobacco Use Types [...] Description 08/21/2024 10:30 AM EST Clinical Support [address] [address] Maritza Mejia RN 505 [place] [address] 09/10/2024 11:30 AM EST Office Visit [facility] [address] [place] [address] Chun Porras MD [address] [place] [address] documented as of this encounter Visit Diagnoses Diagnosis Essential hypertension Unspecified essential hypertension documented in this encounter Additional Health Concerns Assessment Noted Time PHQ-9 Depression Total Score: 3 07/06/20 22 11:00 AM EST documented as of this encounter Care Teams Cabin Crew Relationship Specialty Start Date End Date Chun Porras MD [address] [place] [address] PCP - General Internal Medicine 05/26/14 Lynsey Madison PharmD [address] [place] [address] Pharmacist Internal Medicine 09/26/23 documented as of this encounter
== END 2024-08-12 15:08 | disposition home or self-care (01) ==
PROVIDERS: Visit Provider Internal Medicine Cardiovascular Disease
DX: I51.7 Cardiomegaly (principal)
CPT/HCPCS: 93010; 99214

== ENCOUNTER → 2024-08-12 13:39 | Outpatient (BNVA) | payer OTHER, SELFPAY | PROVIDERS: Visit Provider Internal Medicine Cardiovascular Disease | DX: I11.9 Hypertensive heart disease without heart failure (principal); I51.7 Cardiomegaly; J44.89 Other specified chronic obstructive pulmonary disease | CPT/HCPCS: 93005; 99212 ==

== ENCOUNTER 2024-08-25 16:25 | Outpatient (REF) | payer OTHER, SELFPAY ==
--- NOTE | ~2024-08-25 | CT_ITS ---
CLINICAL HISTORY: R07.9 - Chest pain, unspecified CT chest without contrast Comparison: CR/SR - XR CHEST 1V - 05/18/24 23:49 EST Findings: There is no cardiomegaly. There is moderate atherosclerotic disease of the coronary arteries. No mediastinal adenopathy. No thyroid lesion. Lungs exhibit mild paraseptal emphysema of the apices. Multifocal postsurgical changes noted on the right. There is airway thickening at the lung bases. There are regions of scarring and/or atelectasis noted. No effusion. No pneumothorax. Few tiny scattered nodular densities bilaterally, nonspecific, for example within the lingula on axial 65, 2 mm nodule in subpleural right lower lobe on axial 81, 2.5 mm. The visualized upper abdomen demonstrates no acute process. No suspicious bone lesion. Impression: There are regions of scarring, atelectasis and paraseptal emphysema as detailed above. No definite acute process. A few tiny nodules are present bilaterally, not meeting size criteria to warrant CT follow-up. If the patient is considered high risk for malignancy, a [address] could be considered. This document has been electronically signed by: Narinder Ellsworth MD on 08/26/2024 10:43:58
== END 2024-08-25 16:26 | disposition home or self-care (01) ==
LOC: HO.CT 16:25
PROVIDERS: PCP Internal Medicine; Visit Provider Hospitalist
DX: R07.9 Chest pain, unspecified (principal); R93.89 Abnormal findings on diagnostic imaging of other specified body structures
CPT/HCPCS: 71250

== ENCOUNTER → 2024-08-25 16:27 | Outpatient (BNV) | payer OTHER, SELFPAY | PROVIDERS: PCP Internal Medicine; Visit Provider Radiology Vascular & Interventional Radiology | DX: J84.9 Interstitial pulmonary disease, unspecified (principal); R07.9 Chest pain, unspecified | CPT/HCPCS: 71250 ==

== ENCOUNTER → 2024-09-08 12:55 | Outpatient (REF) | payer OTHER, SELFPAY ==
--- NOTE | 2024-09-08 12:58 | CA_ITS ---
Transthoracic Echocardiogram Patient (Last, First, Middle): Francisco J Romeo, Gender: Male Date of : 1960 Age: 64 Procedure Date: 09/08/2024 Procedure Type: Transthoracic Echocardiogram Location: OP Height: 177. cm Weight: 77.11 kg BSA: 1.94 m2 Heart Rate: 58 bpm BP: 122 / 80 mmHg Senior Cost Estimator: ROSEMARIE Rhodes MD: Vazquez Monahan MD Campground Attendant: Vazquez Monahan MD Symptoms: I51.7 - Cardiomegaly Study Quality: Adequate ECG Rhythm: Sinus Conclusions: - The left ventricular systolic function is normal. The visually estimated ejection fraction is between 55-60%. - No obvious valvular pathology seen on this study. Findings Left Ventricle Normal left ventricular cavity size. There is mildly increased left ventricular wall thickness. The left ventricular systolic function is normal. The visually estimated ejection fraction is between 55-60%. There is no evidence of regional wall motion abnormalities. Diastolic function is normal for age. Right Ventricle Possible mild increase in right ventricular size. Atria Both atria are normal in size. Aortic Valve There is a normal trileaflet aortic valve. There is no aortic valve stenosis. There is no aortic valve regurgitation. Mitral Valve The mitral valve appears normal. There is no mitral valve regurgitation. There is no mitral valve stenosis. Pulmonic Valve There is trace pulmonic valve regurgitation. Tricuspid Valve There is trace tricuspid valve regurgitation. There is no evidence of pulmonary hypertension. Great Vessels The asc aorta is normal in size. Venous The inferior vena cava is mildly dilated and collapses greater than 50% with inspiration. Pericardium/Pleural There is no evidence of pericardial effusion. Prior Study Comparison No significant change compared to prior study dated: 09/07/2014. Recommendations, Care & Conclusions No obvious valvular pathology seen on this study. Measurements 2D Linear Measurements IVSd: 1.08 0.6-0.9/0.6-1.0 cm LVIDd: 4.27 3.9-5.3/4.2-5.9 cm LVIDd Index: 2.20 2.4-3.2/2.2-3.1 cm/m2 LVIDs: 2.56 2.0-3.6 cm LVPWd: 1.13 0.7-1.1 cm LA Diam: 4.00 2.7-3.8/3.0-4.0 cm LAIDs Index: 2.06 1.5-2.3 cm/m2 LV Mass: 202.01 67-162/88-224 g LV Mass Index: 104.13 43-95/49-115 g/m2 LVOT Diam: 2.10 3.0+(-)1.3 cm 2D Systolic Function EF 4C: 61.90 >55% EF 2C: 76.70 >55% Mitral Valve MV Pk E: 0.83 MV PK A: 0.75 MV Decel Time: 274.00 E/A: 1.10 E'Lateral: 10.20 E'Medial: 7.94 E/E' Med: 10.40 E/E' Lat: 8.10 PHT: 80.00 MVA PHT: 2.75 Decel [place]: 3.02 Aortic Valve AoV Pk Aly: 1.22 AoV Mn Aly: 0.87 AoV VTI: 0.27 AoV Pk Grad: 6.00 Aov Mn Grad: 3.00 RUBEN Cont.VTI: 2.77 LVOT LVOT Pk Aly: 1.04 LVOT Mn Aly: 0.68 LVOT VTI: 0.21 LVOT Pk Grad: 4.00 LVOT Mn Grad: 2.00 LVOT Diam: 2.10 LVOT Area: 3.46 Diastolic Function MV Pk E: 0.83 MV Pk A: 0.75 E/A: 1.10 E'Medial: 7.94 E/E' Med: 10.40 E' Laterial: 10.20 E/E' Lat: 8.10 Right Ventricle TAPSE (mm): 25.20 TVS' Aly: 13.60 Tricuspid Valve RA Press: 8.00 Great Vessels Aorta Sinus of Valsalva: 3.80 2.0-3.5 cm Ao Asc: 3.30 2.1-3.4 cm Pulmonary Valve PV Pk Aly: 0.86 Peak PV Grad: 3.00 Updated in Other Vendor System with Status of Final Roland Wilkes MD electronically signed on 09/09/2024 10:27:43 AM with status of Final
--- OUTSIDE RECORDS SUMMARY | 2024-09-08 15:46 | XMS_ITS | Encounter Summary ---
Author Organization [employer] Address [address] [place] [address] Care Team Providers Care Nursing Clerk Name Role Phone Chun Porras MD Primary Care Provide r Lynsey Madison PharmD Unavailable [phone] Reason for Visit * Reason Comments Med Refill Encounter Details Date Type Department Care Team ([facility] st Contact Info) Description 11/14/2023 Refill [facility] MEDICINE [address] [place] [address] Chun Porras MD [address] [place] [address] Chronic midline low back pain without sciatica [...] Care Team (Late st Contact Info) Description 09/10/2024 11:30 AM EST Office Visit [facility] MEDICINE [address] [place] [address] Chun Porras MD [address] [place] [address] 09/22/2024 11:00 AM EDT Office Visit [address] [address] 09/22/2024 1:00 PM EDT Telemedicine [address] [address] Chun Porras MD [address] [place] [address] documented as of this encounter Goals Goal Patient Goal Type Associated Problems Recent Progress Patient-Stated? Author Blood Pressure < 140/90 Blood Pressure Essential hypertension 136/84(2024 3:06 PM EST) No Lynsey Madison, PharmD documented as of this encounter Visit Diagnoses Diagnosis Chronic midline low back pain without sciatica documented in this encounter Additional Health Concerns Assessment Noted Time PHQ-9 Depression Total Score: 1 11/12/19 24 11:09 AM EDT documented as of this encounter Care Teams Nursing Clerk Relationship Specialty Start Date End Date Brennan Elías, Chun, MD [address] [place] [address] PCP - General Internal Medicine 05/26/14 Lynsey Madison PharmD [address] [place] [address] Pharmacist Internal Medicine 09/26/23 documented as of this encounter
--- OUTSIDE RECORDS SUMMARY | 2024-09-08 15:46 | XMS_ITS | Encounter Summary ---
Author Organization [employer] Address [address] [facility] [address] [place] [address] Care Team Providers Care Machine Fitter Name Role Phone Chun Porras MD Primary Care Provide r Lynsey Madison PharmD Unavailable [phone] Reason for Visit * Reason Comments Med Refill Encounter Details Date Type Department Care Team ([facility] st Contact Info) Description 04/28/2024 Refill [facility] MEDICINE [address] [place] [address] Lynsey Madison, PharmD [address] [place] [address] Type 2 diabetes mellitus without complication, unspecified whether prison insulin use ([facility]) Social History Tobacco Use Types [...] Description 09/10/2024 11:30 AM EST Office Visit [facility] MEDICINE [address] [place] [address] Chun Porras MD [address] [place] [address] 09/22/2024 11:00 AM EDT Office Visit [facility] MED[facility]INE [address] [place] [address] 09/22/2024 1:00 PM EDT Telemedicine [facility]INE [address] [place] [address] Chun Porras MD [address] [place] [address] documented as of this encounter Goals Goal Patient Goal Type Associated Problems Recent Progress Patient-Stated? Author Blood Pressure < 140/90 Blood Pressure Essential hypertension 136/84(2024 3:06 PM EST) No Lynsey Madison, MichaelD documented as of this encounter Visit Diagnoses Diagnosis Type 2 diabetes mellitus without complication, unspecified whether family law mediator insulin use ([facility]) documented in this encounter Additional Health Concerns Assessment Noted Time PHQ-9 Depression Total Score: 1 11/12/19 11:09 AM EDT documented as of this encounter Care Teams Machine Fitter Relationship Specialty Start Date End Date Chun Porras MD [address] [place] [address] PCP - General Internal Medicine 05/26/14 Lynsey Madison PharmD [address] [place] [address] Pharmacist Internal Medicine 09/26/23 documented as of this encounter
--- OUTSIDE RECORDS SUMMARY | 2024-09-08 15:46 | XMS_ITS | Clinical Summary ---
Author Organization [employer] Address [address] [place] [address] Care Team Providers Care Chief Jailer Name Role Phone Chun Porras MD Primary [...] 5 mg by mouth at bedtime. Active glucose blood (FREESTYLE LITE) test stripIndications: Type 2 diabetes mellitus without complication, unspecified whether long term care social worker insulin use ([facility]) TEST BLOOD SUGAR TWICE DAILY 100 strip 11 Active Oral Medication Containers misc USE DIRECTED 023 Active [facility] Gas Relief Ultra Strength 180 [...] without complication, unspecified whether long term care social worker insulin use ([facility]) TAKE 2 TABLETS BY MOUTH ONCE DAILY IN THE MORNING and TAKE 1 TABLET BY MOUTH AT BEDTIME 270 tablet 1 Active ketoconazole (NIZOral) 2 % shampoo Apply topically 2 (two) times a week. 120 mL 3 Active cetirizine (ZyrTEC) 10 MG tablet Take 1 tablet (10 mg) by mouth Once per day. 30 tablet 5 024 2024 Active metoprolol tartrate (Lopressor) 50 MG tabletIndications :Essential hypertension TAKE 1 TABLET BY MOUTH TWICE DAILY IN THE MORNING AND IN THE EVENING WITH FOOD 180 tablet Active TRUEplus Lancets 33G miscIndications:T ype 2 diabetes mellitus without complication, unspecified whether jail insulin use ([facility]) TEST BLOOD SUGAR TWICE DAILY 100 each 5 025 Active amLODIPine (Norvasc) 10 MG tabletIndications :Essential hypertension TAKE 1 TABLET BY MOUTH EVERY MORNING 90 tablet 1 Active Aspirin Low Dose 81 MG EC tabletIndications :Type 2 diabetes mellitus without complication, unspecified whether jail insulin use ([facility]) TAKE 1 TABLET BY MOUTH EVERY MORNING 90 tablet 1 025 Active sildenafil (Viagra) 100 MG tabletIndications :Erectile dysfunction, unspecified erectile dysfunction type TAKE 1 TABLET 1 HOUR BEFORE SEXUAL RELATIONS ONCE DAILY NEEDED. 10 tablet 025 Active traMADol (Ultram) 50 MG tabletIndications :Chronic midline low back pain without sciatica Take 1 tablet (50 mg) by mouth every 8 (eight) hours if needed for severe pain. 84 tablet 025 Active omeprazole (PriLOSEC) [address] capsuleIndication s:Gastroesophagea l reflux disease without esophagitis Take 1 capsule (40 mg) by mouth before breakfast and before evening meal. Do not crush or chew. 30 capsule 1 025 2024 Active atorvastatin (Lipitor) 40 MG tabletIndications :Mixed hyperlipidemia TAKE 1 TABLET BY MOUTH EVERY MORNING 90 tablet 3 025 Active atorvastatin (Lipitor) 40 MG tabletIndications :Mixed hyperlipidemia Take 1 tablet (40 mg) by mouth in the morning. 90 tablet 3 024 2024 Discontinued omeprazole (PriLOSEC) [address] capsuleIndication s:Gastroesophagea l reflux disease without esophagitis Take 1 capsule (40 mg) by mouth before breakfast and before evening meal. 60 capsule 2 024 2024 Discontinued(M ed list cleanup (will not trigger notification to Pharmacy)) Aspirin EC Adult Low Dose 81 MG EC tabletIndications :Type 2 diabetes mellitus without complication, unspecified whether jail insulin use ([facility]) TAKE 1 TABLET BY MOUTH EVERY MORNING 90 tablet 1 024 2024 Discontinued amLODIPine (Norvasc) 10 MG tabletIndications :Essential hypertension TAKE 1 TABLET BY MOUTH EVERY MORNING 90 tablet 1 024 2024 Discontinued Viagra 100 MG tabletIndications :Erectile dysfunction, unspecified erectile dysfunction type TAKE 1 TABLET 1 HOUR BEFORE SEXUAL RELATIONS ONCE DAILY NEEDED. 10 tablet 024 2024 Discontinued(R eorder (will not trigger notification to Pharmacy)) traMADol (Ultram) 50 MG tabletIndications :Chronic midline low back pain without sciatica Take 1 tablet (50 mg) by mouth every 8 (eight) hours if needed for severe pain. 84 tablet 024 2024 Discontinued(R eorder (will not trigger notification to [...] a second opinion Will refer to our [facility] Derm clinic Intermittent chest pain 03/07/2023 Assessment [...] AM EDT): Patient previously seen at our [facility] by Dr Praveen Wagoner with a concern [...] EDT): Patient previously seen here at our [facility] by Dr Praveen Wagoner with a concern [...] EDT): Patient previously seen here at our [facility] by Dr Praveen Wagoner with a concern [...] by Ирина SWENSON and was referred to [employer] Supervisor Dr Meyer for Pulmonary clearance. Pt was [...] (Updated 08/22/2023) - Patient transferred medications from [facility] to [facility] and was not pleased with results. He [...] Eye Exam Plan: - Referral sent for [facility] Optometry - Continue with current therapy and [...] L3-L4. Milder degenerative changes at remaining levels. [facility] gave him a steroid injection back in [...] the care of [facility], last seen last 03/09/2019 Back in 06/20/2017 [...] i\used to be under the care of [facility], last seen last 03/09/2019 Back in 06/20/2017 [...] he tells me [facility] I asked him to find out so I can request records [facility] gave him one last Tramadol prescription [...] in the past. [place] [facility] [place] because of spontaneous right pneumothorax. Treated with chest tube, and had bronchoscopy with right parietal pleurectomy, multiple wedge resections of blebs of right upper and middle lobes. kellen 1 antitrypsin was normal Pt was being followed by pulmonology at [facility], he now tells me the tariff counsel left and they did not assign him [...] in the past. [place] [facility] [place] because of spontaneous right pneumothorax. Treated with chest tube, and had bronchoscopy with right parietal pleurectomy, multiple wedge resections of blebs of right upper and middle lobes. kellen 1 antitrypsin was normal Pt was being followed by pulmonology at [facility], he now tells me the tariff counsel left and they did not assign him [...] in the past. [place] [facility] [place] because of spontaneous right pneumothorax. Treated with chest tube, and had bronchoscopy with right parietal pleurectomy, multiple wedge resections of blebs of right upper and middle lobes. kellen 1 antitrypsin was normal Pt was being followed by pulmonology at [facility], he now tells me the tariff counsel left and they did not assign him [...] in the past. [place] [facility] [place] because of spontaneous right pneumothorax. Treated with chest tube, and had bronchoscopy with right parietal pleurectomy, multiple wedge resections of blebs of right upper and middle lobes. kellen 1 antitrypsin was normal Pt was being followed by pulmonology at [facility], he now tells me the tariff counsel left and they did not assign him [...] with moderate depression. Under the care of [facility]. Currently on a regimen of: Clonidine 0.1 mg po qhs Pt denies Suicidal ideation at the moment. Patient denies any suicidal ideation or thoughts, Patient has crisis numbers and knows to use them if needed. Assessment & Plan (11/20/2022 1:22 PM EDT): Pt with moderate depression. Under the care of [facility]. Currently on a regimen of: Clonidine 0.1 mg po qhs Pt denies Suicidal ideation at the moment. Patient denies any suicidal ideation or thoughts, Patient has crisis numbers and knows to use them if needed. Encounters Date Type Department Care Team Description 08/28/2024 Patient Outreach [facility] MED[facility] [address] [place] [phone] Chun Porras MD SDPR Concerns (VIVIAN ThomasPR ) 08/28/2024 Patient Outreach [facility] [address] [place] [address] Chun Porras MD Pre-visit Planning (SDOH Screening positive and Tobacco screening negative) 08/26/2024 Telephone [facility] [address] [place] [phone] Chun Porras MD Chart Prep 08/21/2024 10:30 AM EST Clinical Support [facility] [address] [place] [address] Maritza Mejia RN Chronic midline low back pain without sciatica 08/21/2024 Travel 08/18/2024 Telephone [facility] [address] [place] [address] Maritza Mejia RN 08/17/2024 Refill [facility] [address] [place] [phone] Lynsey Madison, PharmD Mixed hyperlipidemia 08/13/2024 3:20 PM EST Office Visit [facility] [address] [place] [phone] Gastroesophageal reflux disease without esophagitis (Primary Dx); Itching 08/13/2024 Refill [facility] [address] [place] [address] Maritza Mejia RN Chronic midline low back pain without sciatica 08/13/2024 Telephone [facility] [address] [place] [phone] Chun Porras MD Med Refill 08/13/2024 Refill [facility] [address] [place] [address] Chun Porras MD Essential hypertension; Type 2 diabetes mellitus without complication, unspecified whether jail insulin use ([facility]); Erectile dysfunction, unspecified erectile dysfunction type 08/09/2024 Orders Only GENERIC EXTERNAL DATA DEPARTMENT Provider, Generic External Data 07/31/2024 Refill [facility] [address] [place] [address] iSmran Panda ANP Type 2 diabetes mellitus without complication, unspecified whether long term care social worker insulin use (CMS/HCC) 07/14/2024 Refill [facility] [address] [place] [address] Lynsey Madison PharmD Essential hypertension 07/13/2024 Refill [facility] [address] [place] [address] Maritza Mejia RN Chronic midline low back pain without sciatica 07/13/2024 Telephone [facility] [address] [place] [address] Chun Porras MD 06/30/2024 Telephone [facility] [address] [place] [address] Lissett Cortes MA Aug. Recall 06/24/2024 6:20 PM EST Office Visit [facility] [address] [place] [address] Buddy Gr MD Seborrheic dermatitis (Primary Dx) 06/15/2024 Refill [facility] [address] [place] [address] Chun Porras MD Chronic midline low back pain without sciatica 06/09/2024 2:00 PM EST Office Visit [facility] [address] [place] [address] Chun Porras MD Type 2 diabetes mellitus without complication, unspecified whether long term care social worker insulin use ([facility]) (Primary Dx); Essential hypertension; Encounter for immunization; Pulmonary emphysema, unspecified emphysema type ([facility]); Gastroesophageal reflux disease without esophagitis; Odynophagia; Intermittent chest pain 06/09/2024 Travel from Last 3 Months Immunizations Name [...] housing situation today? I have angelica pederson 08/28/[address] you li ve. Do you have problems with any of the following? Pests such as bugs, ants, or mice 08/28/2024 Food Insecurity Answer Date Recorded Within the [...] the past 12 months, has t he [employer], [employer], oil or water company threatened to shut off services in your home? No 11/04/2023 Depression Answer Date Recorded Patient Health Questionnaire-2 Score 0 11/12/2023 Internet Access Answer Date Recorded Internet Access Q1 Yes 08/28/2024 Internet Access Q2 Not on file 08/28/2024 Sex and Gender Information Value Date Recorded Sex Assigned at Male 05/14/2022 10:26 AM EDT Legal Sex Male 10:26 AM EDT Gender Identity Male 05/14/2022 10:26 AM EDT Sexual Orientation Straight 05/14/2022 10 :26 AM EDT Last Filed Vital Signs Vital Sign Reading Time Taken Comments Blood Pressure 136/84 08/13/2024 3:06 PM EST Pulse 74 08/13/2024 3:06 PM EST Temperature 36.7 ??C (98.1 ??F) 08/13/2024 3:06 PM ES T Respiratory Rate 16 08/13/2024 3:06 PM EST Oxygen Saturation 98% 08/13/2024 3:06 PM EST Inhaled Oxygen Concentration - - Weight 78.9 kg (174 lb) 08/13/2024 3:06 PM EST Height 177.8 cm (5' 10 ) 06/24/2024 5:58 PM EST Body Mass Index 24.97 06/24/2024 5:58 PM EST Plan of Treatment Upcoming Encounters Date Type Department Care Team (Late st Contact Info) Description 09/10/2024 11:30 AM EST Office Visit [facility] [address] [place] [phone] Chun Porras MD [address] [place] [phone] 09/22/2024 11:00 AM EDT Office Visit [address] [address] 09/22/2024 1:00 PM EDT Telemedicine [address] [address] Chun Porras MD [address] [place] [phone] Health Maintenance Due Date Last Done Comments CT Colonography 1960 FIT DNA/Cologuard 1960 FIT 1960 FOBT 1960 Sigmoidoscopy 1960 Diabetes: Foot Exam 1968 Diabetes: Urine Protein Screening 1977 RSV Patients and Patients Aged 60 years or older (1 - Risk 60-74 years 1-dose series) 2018 Lipid Panel 11/10/2023 11/09/2022, 11/13, 05/26/2020 Diabetes: Hemoglobin A1C 09/09/2024 024, 02/04/2024, 11/12/2023, Additional history exists Depression Screening 11/11/2024 11/12/2023, 11/12/19 Alcohol/Substance Use Screening 06/09/2025 06/09/2024 Tobacco Screening 06/24/2025 06/24/2024 Colonoscopy 07/27/2025 07/27/2020 Colorectal Cancer Screening 07/27/2025 SDOH Screening 08/28/2025 08/28/2024 Eye Exam 01/22/2026 01/23/2024, 01/12, 01/23/2024, Additional [...] 136/84(2024 3:06 PM EST) No Lynsey Madison, Sherwin Procedures Procedure Name Priority Date/Time Associated Diagnosis Comments HIGH SENSITIVITY TROPONIN I Routine 09/08/2024 2:45 PM EST COMPREHENSIVE METABOLIC PANEL Routine 09/08/2024 2:45 PM EST PROTHROMBIN TIME-INR Routine 09/08/2024 2:45 PM EST CBC WITH AUTO DIFFERENTIAL Routine 09/08/2024 2:45 PM EST XR CHEST 2 VIEWS Routine 09/08/2024 2:[address] CHEST WO CONTRAST Routine 08/26/2024 10:43 AM EST POCT LORENA-14 URINE DRUG SCREEN Routine 08/21/2024 10:15 AM EST Chronic midline low back pain without sciatica HIGH SENSITIVITY TROPONIN I Routine 08/09/2024 9:15 AM EST BASIC METABOLIC PANEL Routine 08/09/2024 9:15 AM EST CBC WITH AUTO DIFFERENTIAL Routine 08/09/2024 9:15 AM EST POCT GLYCATED HEMOGLOBIN, TOTAL Routine 06/09/2024 2:07 PM EST Type 2 diabetes mellitus without complication, unspecified whether long term care social worker insulin use ([facility]) POCT GLUCOSE Routine 06/09/2024 2:01 PM EST Type 2 diabetes mellitus without complication, unspecified whether jail insulin use (CMS/HCC) HEPATITIS C AB W/REFL TO HCV RNA, QN, PCR Routine 12/20/2022 10:56 AM EDT Unexplained night sweats LIPID PANEL, STANDARD Routine 11/09/2022 11:21 AM EDT Pre-op exam HM COLONOSCOPY Routine 07/27/2020 from Last 3 Months or Most Recently Relevant to Health Maintenance Results * High Sensitivity Troponin I (09/08/2024 2:45 PM EST) Only the most recent of2 resultswithin the time period is included. [facility] TROPONIN I HIGH SENSITIVITY <2.7 <3.5 - 35.0 ng/L [facility] Comment:The Wheeler high sens itivity Troponin-I results should beused in conjunction with other diagnostic information suchas ECG, clinical observations and information, and patientsymptoms to aid in the diagnosis of AR. 09/08/2024 2:45 PM EST 09/08/2024 2:50 PM EST us Generic External Data Provider LAB BLOOD ORDERAB LES Final Result [facility] [address] [place] [phone] * (ABNORMAL) CBC auto differential (09/08/2024 2:45 PM EST) Only the most recent of2 resultswithin the time period is included. [facility] White Blood Count 8.5 4.8 - 10.8 X10*3/uL [facility] Red Blood Count 4.86 4.60 - 5.80 X10*6/uL [facility] Hemoglobin 14.3 14.0 - 18.0 g/dl [facility] Hematocrit 41.8(L) 42.0 - 52.0 % [facility] Mean Corpuscular Volume 86.0 80.0 - 98.0 fL [facility] Mean Corpuscular Hemoglobin 29.4 27.0 - 33.0 pg [facility] Mean Corpuscular HGB Conc 34.2 31.0 - 36.0 g/dl [facility] Red Cell Distribution Width 12.7 11.0 - 16.0 % [facility] Platelet Count 222 160 - 400 X10*3/uL [facility] Mean Platelet Volume 9.7 9.4 - 12.4 fL [facility] Neutrophils Percent Auto 64.9 45 - 73 % [facility] Imm Gran Pct Auto 0.1 0.0 - 0.4 % [facility] Lymphocytes Percent Auto 18.8(L) 20 - 40 % [facility] Monocytes Percent Auto 10.6 2 - 11 % [facility] Eosinophils Percent Auto 4.9(H) 0 - 4 % [facility] Basophils Percent Auto 0.7 0 - 2 % [facility] NRBC Pct Auto 0.0 0.0 - 0.2 /100WBC [facility] Neutrophils Absolute Auto 5.5 2.0 - 8.3 x10*3/uL [facility] Imm Gran Abs Auto 0.01 0.00 - 0.03 X10*3/uL [facility] Lymphocytes Absolute Auto 1.6 1.2 - 4.9 X10*3/uL [facility] Monocytes Absolute Auto 0.9 0.1 - 1.2 X10*3/uL [facility] Eosinophils Absolute Auto 0.4 0.0 - 0.4 X10*3/uL [facility] Basophils Absolute Auto 0.1 0.0 - 0.2 X10*3/uL [facility] NRBC Abs Auto 0.000 0.0 - 0.012 X10*3/uL [facility] 09/08/2024 2:45 PM EST 09/08/2024 2:50 PM EST us Generic External Data Provider LAB BLOOD ORDERAB LES Final Result [facility] [address] [place] [phone] * (ABNORMAL) Prothrombin Time-INR (09/08/2024 2:45 PM EST) Prothrombin Time 10.8(L) 10.9 - 12.4 SEC [facility] INTERNATIONAL NORM RATIO 0.9 0.9 - 1.1 [facility] Comment:INTERNATIONAL NORMAL IZED RATIO (INR) REFERENCE RANGES Reference RangeFor patients not on anticoagulant therapy: 0.9 - 1.1INR ranges for oral anticoagulanttherapy:For prevention and treatment of venous thrombosis and pulmonary embolism: 2.0 - 3.0For acute myocardial infarction with aspirin therapy: 2.0 - 3.0For acute myocardial infarction without aspirin therapy: 3.0 - 4.0For patients with mechanical prosthetic heart valves: 2.5 - 3.5 09/08/2024 2:45 PM EST 09/08/2024 2:50 PM EST us Generic External Data Provider LAB BLOOD ORDERAB LES Final Result [facility] [address] [place] [address] [phone] * (ABNORMAL) Comprehensive Metabolic Panel (09/08/2024 2:45 PM EST) [facility] Sodium 139 135 - 145 mmol/L [facility] Potassium 4.1 3.3 - 5.1 mmol/L [facility] Chloride 109(H) 96 - 108 mmol/L [facility] Carbon Dioxide 22 22 - 29 mmol/L [facility] Anion Gap 12 12 - 20 [facility] Urea Nitrogen (BUN) 19(H) 9 - 16 mg/dL [facility] Creatinine, Serum 0.79 0.5 - 1.4 mg/dL [facility] Creatinine Clr Calc Pharmacy 94.9 [facility] Comment:eGFR (calculated fro m the MDRD study equation) and eCrCl(calculated from the Cockcroft-Gault equation) are based ondifferent parameters and may not yield comparable results.If eCrCl result is absurd, please check patient'sheight/weight. Estimated Glomerular Filt Rate >60 [facility] Comment:Chronic Kidney Disea se: Estimated GFR < 60 mL/min/1.05f7Cjdtta Kidney Disease: Estimated GFR < 15 mL/min/1.73m2 Glucose 123(H) 60 - 115 mg/dL [facility] Calcium 9.3 8.4 - 10.2 mg/dL [facility] Bilirubin, Total 0.3 0.0 - 1.0 mg/dL [facility] Aspartate Amino Transferase 27 5 - 37 U/L [facility] Alanine Aminotransferase 30 0 - 40 U/L [facility] Total Protein 7.6 6.5 - 8.0 g/dL [facility] Albumin Level 4.2 3.5 - 5.0 g/dL [facility] Alkaline Phosphatase 90 39 - 117 U/L [facility] 09/08/2024 2:45 PM EST 09/08/2024 2:50 PM EST us Generic External Data Provider LAB BLOOD ORDERAB LES Final Result [facility] [address] [place] [phone] [phone] * XR Chest 2 Views (09/08/2024 2:29 PM EST) Anatomical Region Laterality Modality Chest Radiographic Brenna ging 09/08/2024 2:29 PM EST Narrative 09/08/2024 2:59 PM EST ? [facility] ?[address] ?[place] [address] ?XRay Report ? Signed ? Patient: Garcia Vargas,Francisco J ?MR#: M ?? [id number] ? : 1960 ?Acct:[id number] ? Age/Sex: 64 / M ?ADM Date: 02/25/25 ? Loc: HO.ED ? Attending Dr: ? Ordering Physician: Helena Green NP ?? Date of Service: 09/08/24 ?? Procedure(s): XR chest 2V ?? Accession Number(s): [id number] ? cc: Chun Michel MD; Helena Green NP ? EXAMINATION: ?? XR CHEST ? CLINICAL INFORMATION: ?? chest pain ? COMPARISON: ?? None available. ? TECHNIQUE: ?? 2 views of the chest were obtained. ? FINDINGS: ?? Pulmonary reticular pattern. ?? No consolidation, pleural effusion or pneumothorax. ?? No hyperinflation. ?? Cardiomediastinal silhouette size is normal. ?? Old traumatic deformity/callus formation posterior lateral aspect of ?? the ribs right mid hemithorax. ?? Questionable 3 mm calcified pulmonary nodule right lower hemithorax. ?? Multilevel lower thoracic spondylosis. ?? Degenerative changes in the acromioclavicular joints. ? XR/XR chest 2V ?? IMPRESSION: ?? Chronic interstitial lung disease without acute airspace disease. ? Electronically signed by: ??Octaviano Jimenez MD ??09/08/2024 02:56 PM ?? EST RP ? Dictated By: ?Octaviano Ying MD ? Signed By: ?<Electronically signed by Octaviano Abdi MD in OV> ? 09/08/24 1456 ? DD/ 1429 ? TD/TT: 09/08/24 1450 ? Curbing Stonecutter: ? Procedure Note Sagrario, Kasey - 09/08/2024 [place] [address] XRay Report Signed Patient: Johny Romeo#: M [id number] : 8Acct:[id number] Age/Sex: 64 / MADM Date: 09/08/24 Loc: HO.ED Attending Dr: Ordering Physician: Helena Green NP Date of Service: 09/08/24 Procedure(s): XR chest 2V Accession Number(s): [id number] cc: Chun Michel MD; Helena Green NP EXAMINATION: XR CHEST CLINICAL INFORMATION: chest pain COMPARISON: None available. TECHNIQUE: 2 views of the chest were obtained. FINDINGS: Pulmonary reticular pattern. No consolidation, pleural effusion or pneumothorax. No hyperinflation. Cardiomediastinal silhouette size is normal. Old traumatic deformity/callus formation posterior lateral aspect of the ribs right mid hemithorax. Questionable 3 mm calcified pulmonary nodule right lower hemithorax. Multilevel lower thoracic spondylosis. Degenerative changes in the acromioclavicular joints. XR/XR chest 2V IMPRESSION: Chronic interstitial lung disease without acute airspace disease. Electronically signed by: Octaviano Jimenez MD 09/08/2024 02:56 PM EST RP Workstation: Dictated By: Octaviano Ying MD Signed By: <Electronically signed by Octaviano Abdi MDin OV> 09/08/24 1456 DD/ 1429 TD/TT: 09/08/24 1450 Curbing Stonecutter: [facility] External Provider IMG XR PROCEDURES Final Result * CT Chest w/o Contrast (08/26/2024 10:43 AM EST) Anatomical Region Laterality Modality Body, Chest Computed Tomogra phy 08/26/2024 10:4 3 AM EST Narrative 08/26/2024 10:44 AM EST ? [facility] ?[address] ?[place] [address] ? CT Scan Report ? Signed ? Patient: Garcia Vargas,Francisco J ?MR#: M ?? [id number] ? : 1960 ?Acct:[id number] ? Age/Sex: 64 / M ?ADM Date: 08/25/24 ? Loc: HO.CT ? Attending Dr: Shane Meyer MD ? Ordering Physician: Shane Meyer MD ?? Date of Service: 08/25/24 ?? Procedure(s): CT chest wo IV con ?? Accession Number(s): [id number] ? cc: Chun Michel MD; Shane Meyer MD ? Report Number: ?? [id number]: Total DLP = ??153.00 mGy-cm ? CLINICAL HISTORY: R07.9 - Chest pain, unspecified ? CT chest without contrast ? Comparison: CR/SR - XR CHEST 1V - 05/18/24 23:49 EST ? Findings: ?? There is no cardiomegaly. ?? There is moderate atherosclerotic disease of the coronary arteries. ?? No mediastinal adenopathy. No thyroid lesion. ?? Lungs exhibit mild paraseptal emphysema of the apices. ?? Multifocal postsurgical changes noted on the right. ?? There is airway thickening at the lung bases. ?? There are regions of scarring and/or atelectasis noted. ?? No effusion. No pneumothorax. ?? Few tiny scattered nodular densities bilaterally, nonspecific, for example ?? within the lingula on axial 65, 2 mm nodule in subpleural right lower lobe ?? on axial 81, 2.5 mm. ? The visualized upper abdomen demonstrates no acute process. ?? No suspicious bone lesion. ? Impression: ? There are regions of scarring, atelectasis and paraseptal emphysema as ?? detailed above. ?? No definite acute process. ?? A few tiny nodules are present bilaterally, not meeting size criteria to ?? warrant CT follow-up. If the patient is considered high risk for ?? malignancy, a [address] could be considered. ? This document has been electronically signed by: Narinder Ellsworth MD on ?? 08/26/2024 10:43:58 ? Dictated By: ?Narinder Ellsworth MD ? Signed By: ?<Electronically signed by Narinder Ellsworth MD in OV> ? 08/26/244 ? DD/ 42 ? TD/TT: 08/26/241042 ? Curbing Stonecutter: ? Procedure Note Sagrario, Kasey - 08/26/[address] [place] [address] [address] Scan Report Signed Patient: Johny Romeo#: M [id number] : 8Acct:[id number] Age/Sex: 64 / MADM Date: 08/25/24 Loc: HO.CT Attending Dr: Shane Meyer MD Ordering Physician: Shane Meyer MD Date of Service: 08/25/24 Procedure(s): CT chest wo IV con Accession Number(s): [id number] cc: Chun Michel MD; Shane Meyer MD Report Number: [id number]: Total DLP = 153.00 mGy-cm CLINICAL HISTORY: R07.9 - Chest pain, unspecified CT chest without contrast Comparison: CR/SR - XR CHEST 1V - 05/18/24 23:49 EST Findings: There is no cardiomegaly. There is moderate atherosclerotic disease of the coronary arteries. No mediastinal adenopathy. No thyroid lesion. Lungs exhibit mild paraseptal emphysema of the apices. Multifocal postsurgical changes noted on the right. There is airway thickening at the lung bases. There are regions of scarring and/or atelectasis noted. No effusion. No pneumothorax. Few tiny scattered nodular densities bilaterally, nonspecific, for example within the lingula on axial 65, 2 mm nodule in subpleural right lower lobe on axial 81, 2.5 mm. The visualized upper abdomen demonstrates no acute process. No suspicious bone lesion. Impression: There are regions of scarring, atelectasis and paraseptal emphysema as detailed above. No definite acute process. A few tiny nodules are present bilaterally, not meeting size criteria to warrant CT follow-up. If the patient is considered high risk for malignancy, a [address] could be considered. This document has been electronically signed by: Narinder Ellsworth MD on 08/26/2024 10:43:58 Dictated By: Narinder Ellsworth MD Signed By: <Electronically signed by Narinder Ellsworth MD in OV> 08/26/24 1044 DD/ 1043 TD/TT: 08/26/24 1043 Curbing Stonecutter: [facility] External Provider IMG CT PROCEDURES Final Result * POCT LORENA-14 Urine Drug Screen (08/21/2024 10:15 AM EST) THC Positive Urine Urine specimen obtained by clean catch procedure / Unknown 08/21/2024 10:15 AM EST Narrative Maritza Mejia RN - 08/21/2024 10:15 AM EST .UTOX cup Lot#[id number] Exp. 04/08/26 Internal Pass Control Chun Mckinley MD POINT OF CARE TEST EN TER/EDIT ORDERABLES Final Result * (ABNORMAL) Basic Metabolic Panel (08/09/2024 9:15 AM EST) Sodium 139 135 - 145 mmol/L [facility] Potassium 3.8 3.3 - 5.1 mmol/L [facility] Chloride 107 96 - 108 mmol/L [facility] Carbon Dioxide 23 22 - 29 mmol/L [facility] Anion Gap 13 12 - 20 [facility] Urea Nitrogen (BUN) 21(H) 9 - 16 mg/dL [facility] Creatinine, Serum 0.81 0.5 - 1.4 mg/dL [facility] Creatinine Clr Calc Pharmacy 92.6 [facility] Comment:eGFR (calculated fro m the MDRD study equation) and eCrCl(calculated from the Cockcroft-Gault equation) are based ondifferent parameters and may not yield comparable results.If eCrCl result is absurd, please check patient'sheight/weight. Estimated Glomerular Filt Rate >60 [facility] Comment:Chronic Kidney Disea se: Estimated GFR < 60 mL/min/1.47s1Qsoyxf Kidney Disease: Estimated GFR < 15 mL/min/1.73m2 Glucose 100 60 - 115 mg/dL [facility] Calcium 9.7 8.4 - 10.2 mg/dL [facility] 08/09/2024 9:15 AM EST 08/09/2024 9:19 AM EST us Generic External Data Provider LAB BLOOD ORDERAB LES Final Result [facility] [address] [place] [address] [phone] * POCT HGB A1C (06/09/2024 2:07 PM EST) Hemoglobin A1C 5.9 4.0 - 6.0 % QC Media Lot # [id number] Lot# Expiration Date [id number] Blood 06/09/2024 2:07 PM EST Result [facility] Chun Mckinley MD POINT OF CARE TEST EN TER/EDIT ORDERABLES Final Result * POCT Glucose (06/09/2024 2:01 PM EST) Glucose Blood, POC 122 60 - 200 mg/dL QC Media Lot # [id number] Lot# Expiration Date Blood Capillary blood specimen / Unknown 06/09/2024 2:01 PM EST Chun Mckinley MD POINT OF CARE TEST EN TER/EDIT ORDERABLES Final Result * Hepatitis C Antibody with Reflex to HCV, RNA, Quantitative, Real-Time PCR (12/20/2022 10:56 AM EDT) Hepatitis C Antibody NON-REACT FABRICIO NON-REACT FABRICIO [facility] Index 0.13 <1.00 [facility] Comment: HCV antibody was non-reactive. There is no laboratory evidence of HCV infection. In most cases, no further action is required. However, if recent HCV exposure is suspected, a test for HCV RNA (test code 52097) is suggested. For additional information please refer to http://education.[employer]/faq/YJB56t6 (This link is being provided for informational/ educational purposes only.) Blood Venous blood specimen / Unknown 12/20/2022 10:56 AM EDT 12/20/2022 10:56 AM EDT Narrative [facility] - 12/21/2022 5:38 AM EDT FASTING:YES FASTING: YES Result [facility] us Chun Mckinley MD LAB BLOOD ORDERABLES Final Result [facility] [address], [place] [address] [facility] [place] [facility] [address] [place] [address] * Lipid Panel, Standard (11/09/2022 11:21 AM EDT) Cholesterol, Total 138 <200 mg/dL [facility] [place] [facility] HDL Cholesterol 54 > OR = 40 mg/dL [facility] [place] [facility] Triglycerides 131 <150 mg/dL [facility] [place] [facility] LDL Cholesterol 63 mg/dL (calc) [facility] [place] [employer] Comment: Reference range: <100 Desirable range <100 mg/dL for primary prevention; ?? <70 mg/dL for patients with CHD or diabetic patients with > or = 2 CHD risk factors. LDL-C is now calculated using the Trever calculation, which is a validated novel method providing better accuracy than the Friedewald equation in the estimation of LDL-C. Manav SS et al. DIONICIO. 2013;310(19): 9658-9379 (http://education.[employer]/faq/TMZ806) Chol/HDLC Ratio 2.6 <5.0 (calc) [facility] [place] [facility] Non-HDL Cholesterol 84 <130 mg/dL (calc) [facility] [place] [facility] Comment: For patients with diabetes plus 1 major ASCVD risk factor, treating to a non-HDL-C goal of <100 mg/dL (LDL-C of <70 mg/dL) is considered a therapeutic option. Blood Venous blood specimen / Unknown 11/09/2022 11:21 AM EDT 11/09/2022 11:21 AM EDT Narrative [facility] - 11/10/2022 8:06 AM EDT FASTING:NO FASTING: NO Colleen Lou [facility] LAB BLOOD ORDERABLES Final Resu lt [facility] [address], [place] [address] [facility] [place] [employer] [address] [place] [address] * Hm Colonoscopy (07/27/2020) Colonoscopy Normal Normal 07/27/2020 Blossom Spencer - 07/27/2020 2:25 PM EST Recommended 5 year follow up ( see GI note 08/17/2020) us Historical Provider HEALTH MAINTENANCE Edited Result - Final from Last 3 Months or Most Recently Relevant to Health Maintenance Insurance [facility] Care Teams Chief Jailer Relationship Specialty Start Date End Date Chun Porras MD [address] [place] [address] PCP - General Internal Medicine 05/26/14 Lynsey Madison PharmD [address] [place] [address] Pharmacist Internal Medicine 09/26/23
--- OUTSIDE RECORDS SUMMARY | 2024-09-08 15:46 | XMS_ITS | Encounter Summary ---
Author Organization [employer] Address [address] [place] [address] Care Team Providers Care Network Account Manager Name Role Phone Chun Porras MD Primary Care Provide r Lynsey Madison PharmD Unavailable [phone] Reason for Visit * Reason Comments Med Refill Encounter Details Date Type Department Care Team ([facility] st Contact Info) Description 02/17/2024 Refill [facility] CHC MED & PEDS [address] [place] [address] Chun Porras MD [address] [place] [address] Chronic midline low back pain without sciatica [...] Description 09/10/2024 11:30 AM EST Office Visit [facility] MEDICINE [address] [place] [address] Chun Porras MD [address] [place] [address] 09/22/2024 11:00 AM EDT Office Visit [address] [address] 09/22/2024 1:00 PM EDT Telemedicine [address] [address] Chun Porras MD [address] [place] [address] documented as of this encounter Goals Goal Patient Goal Type Associated Problems Recent Progress Patient-Stated? Author Blood Pressure < 140/90 Blood Pressure Essential hypertension 136/84(2024 3:06 PM EST) Lynsey Otoole, PharmD documented as of this encounter Visit Diagnoses Diagnosis Chronic midline low back pain without sciatica documented in this encounter Additional Health Concerns Assessment Noted Time PHQ-9 Depression Total Score: 1 11/12/19 24 11:09 AM EDT documented as of this encounter Care Teams Network Account Manager Relationship Specialty Start Date End Date Chun Porras MD [address] [place] [address] PCP - General Internal Medicine 05/26/14 Lynsey Madison PharmD [address] [place] [address] Pharmacist Internal Medicine 09/26/23 documented as of this encounter
--- OUTSIDE RECORDS SUMMARY | 2024-09-08 15:46 | XMS_ITS | Clinical Summary ---
Author Organization [facility] Address [address] [address] Care Team Providers Care Cotton Tipper Name Role Phone Chun Brennan MD Primary [...] age to complete this topic Insurance [address] [place] [phone] [facility] [address] [place] [address] [facility] [address] [place] [address] Care Teams Cotton Tipper Relationship Specialty Start Date End Date Chun Brennan MD PCP - General 07/25/20
--- OUTSIDE RECORDS SUMMARY | 2024-09-08 15:46 | XMS_ITS | Encounter Summary ---
Author Organization [employer] Address [address] [place] [address] Care Team Providers Care Director Channel Name Role Phone Chun Porras MD Primary Care Provide r Lynsey Madison PharmD Unavailable [phone] Encounter Details Date Type Department Care Team ([facility] Contact Info) Description 11/14/2022 Abstract [facility] MEDICINE [address] [place] [address] Chun Porras MD [address] [place] [address] Social History Tobacco Use Types Packs/Day Years [...] Department Care Team (Late Contact Info) Description 09/10/2024 11:30 AM EST Office Visit [facility] [place] [address] [place] [address] 09/22/2024 11:00 AM EDT Office Visit [facility] [place] [phone] 09/22/2024 1:00 PM EDT Telemedicine [facility] [place] [phone] Chun Porras MD [address] [place] [phone] documented as of this encounter Procedures Procedure Name Priority Date/Time Associated Diagnosis Comments COLONOSCOPY Routine 07/27/2020 documented in this encounter Results * Colonoscopy (07/27/2020) Colonoscopy Normal Normal 07/27/2020 Narrative Arin, Blossom - 07/27/2020 2:25 PM EST Recommended 5 year follow up ( see GI note 08/17/2020) Historical Provider HEALTH MAINTENANCE Edited Result - Final documented in this encounter Visit Diagnoses Not on filedocumented in this encounter Additional Health Concerns Assessment Noted Time PHQ-9 Depression Total Score: 3 07/06/20 22 11:00 AM EST documented as of this encounter Care Teams Director Channel Relationship Specialty Start Date End Date Chun Porras MD [place] [phone] PCP - General Internal Medicine 05/26/14 Lynsey Madison PharmD [address] [place] [phone] Pharmacist Internal Medicine 09/26/23 documented as of this encounter
--- OUTSIDE RECORDS SUMMARY | 2024-09-08 15:46 | XMS_ITS | Encounter Summary ---
Author Organization [employer] Address [address] [place] [address] Care Team Providers Care Evening Or Night Nurse Supervisor Name Role Phone Chun Porras MD Primary Care Provide r Lynsey Madison PharmD Unavailable [phone] Reason for Visit * Reason Comments Med Refill Encounter Details Date Type Department Care Team ([facility] st Contact Info) Description 07/20/2022 Refill [facility] MEDICINE [address] [place] [address] Chun Porras MD [address] [place] [address] Chronic midline low back pain without sciatica [...] Description 09/10/2024 11:30 AM EST Office Visit [facility] [place] [address] [place] [address] 09/22/2024 11:00 AM EDT Office Visit [facility] [place] [address] 09/22/2024 1:00 PM EDT Telemedicine [facility] [place] [address] [place] [address] documented as of this encounter Visit Diagnoses Diagnosis Chronic midline low back pain without sciatica documented in this encounter Additional Health Concerns Assessment Noted Time PHQ-9 Depression Total Score: 3 07/06/20 22 11:00 AM EST documented as of this encounter Care Teams Evening Or Night Nurse Supervisor Relationship Specialty Start Date End [place] [address] PCP - General Internal Medicine 05/26/14 Lynsey Madison [address] [facility] [place] [address] Pharmacist Internal Medicine 09/26/23 documented as of this encounter
--- OUTSIDE RECORDS SUMMARY | 2024-09-08 15:46 | XMS_ITS | Encounter Summary ---
Author Organization [employer] Address [address] [place] [address] Care Team Providers Care Hat And Cap Sewer Name Role Phone Chun Porras MD Primary Care Provide r Lynsey Madison PharmD Unavailable [phone] Reason for Visit * Reason Comments Med Refill Encounter Details Date Type Department Care Team ([facility] st Contact Info) Description 11/14/2023 Refill [facility] MEDICINE [address] [place] [address] Chun Porras MD [address] [place] [address] Chronic midline low back pain without sciatica [...] Description 09/10/2024 11:30 AM EST Office Visit [facility] MEDICINE [address] [place] [address] Chun Porras MD [address] [place] [address] 09/22/2024 11:00 AM EDT Office Visit [address] [address] 09/22/2024 1:00 PM EDT Telemedicine [address] [address] Chun Porras MD [address] [place] [address] documented as of this encounter Goals Goal [...] documented as of this encounter Care Teams Hat And Cap Sewer Relationship Specialty Start Date End Date Brennan Elías, Chun, MD [address] [place] [address] PCP - General Internal Medicine 05/26/14 Lynsey Madison PharmD [address] [place] [address] Pharmacist Internal Medicine 09/26/23 documented as of this encounter
--- OUTSIDE RECORDS SUMMARY | 2024-09-08 15:46 | XMS_ITS | Encounter Summary ---
Author Organization [employer] Address [address] [facility] [address] 7[address] [place] [address] Care Team Providers Care Games Manager Name Role Phone Chun Porras MD Primary Care Provide r Lynsey Madison PharmD Unavailable [phone] Encounter Details Date Type Department Care Team [...] Description 09/10/2024 11:30 AM EST Office Visit [address] [address] Chun Porras MD [address] [place] [address] 09/22/2024 11:00 AM EDT Office Visit [address] [address] 09/22/2024 1:00 PM EDT Telemedicine [address] [address] Chun Porras MD [address] [place] [address] documented as of this encounter Goals Goal Patient Goal Type Associated Problems Recent Progress Patient-Stated? Author Blood Pressure < 140/90 Blood Pressure Essential hypertension 136/84(2024 3:06 PM EST) No Lynsey Madison, PharmD documented as of this encounter Procedures Procedure Name Priority Date/Time Associated Diagnosis Comments HIGH SENSITIVITY TROPONIN I Routine 09/08/2024 2:45 PM EST CBC WITH AUTO DIFFERENTIAL Routine 09/08/2024 2:45 PM EST PROTHROMBIN TIME-INR Routine 09/08/2024 2:45 PM EST COMPREHENSIVE METABOLIC PANEL Routine 09/08/2024 2:45 PM EST XR CHEST 2 VIEWS Routine 09/08/2024 2:[address] CHEST WO CONTRAST Routine 08/26/2024 10:43 AM EST HIGH SENSITIVITY TROPONIN I Routine 08/09/2024 9:15 AM EST CBC WITH AUTO DIFFERENTIAL Routine 08/09/2024 9:15 AM EST BASIC METABOLIC PANEL Routine 08/09/2024 9:15 AM EST documented in this encounter Results * High Sensitivity Troponin I (09/08/2024 2:45 PM EST) [facility] TROPONIN I HIGH SENSITIVITY <2.7 <3.5 - 35.0 ng/L [facility] Comment:The Wheeler high sens itivity Troponin-I results should beused in conjunction with other diagnostic information suchas ECG, clinical observations and information, and patientsymptoms to aid in the diagnosis of MD. 09/08/2024 2:45 PM EST 09/08/2024 2:50 PM EST us Generic External Data Provider LAB BLOOD ORDERAB LES Final Result [facility] [address] [place] [phone] * (ABNORMAL) Comprehensive Metabolic Panel (09/08/2024 2:45 PM EST) [facility] Sodium 139 135 - 145 mmol/L [facility] Potassium 4.1 3.3 - 5.1 mmol/L [facility] Chloride 109(H) 96 - 108 mmol/L [facility] Carbon Dioxide 22 22 - 29 mmol/L [facility] Anion Gap 12 12 - 20 [facility] Urea Nitrogen (BUN) 19(H) 9 - 16 mg/dL [facility] Creatinine, Serum 0.79 0.5 - 1.4 mg/dL [facility] Creatinine Clr Calc Pharmacy 94.9 [facility] Comment:eGFR (calculated fro m the MDRD study equation) and eCrCl(calculated from the Cockcroft-Gault equation) are based ondifferent parameters and may not yield comparable results.If eCrCl result is absurd, please check patient'sheight/weight. Estimated Glomerular Filt Rate >60 [facility] Comment:Chronic Kidney Disea se: Estimated GFR < 60 mL/min/1.34p0Pexwgo Kidney Disease: Estimated GFR < 15 mL/min/1.73m2 Glucose 123(H) 60 - 115 mg/dL [facility] Calcium 9.3 8.4 - 10.2 mg/dL [facility] Bilirubin, Total 0.3 0.0 - 1.0 mg/dL [facility] Aspartate Amino Transferase 27 5 - 37 U/L [facility] Alanine Aminotransferase 30 0 - 40 U/L [facility] Total Protein 7.6 6.5 - 8.0 g/dL [facility] Albumin Level 4.2 3.5 - 5.0 g/dL [facility] Alkaline Phosphatase 90 39 - 117 U/L [facility] 09/08/2024 2:45 PM EST 09/08/2024 2:50 PM EST us Generic External Data Provider LAB BLOOD ORDERAB LES Final Result [facility] [address] [place] [address] [phone] * (ABNORMAL) Prothrombin Time-INR (09/08/2024 2:45 PM EST) Prothrombin Time 10.8(L) 10.9 - 12.4 SEC [facility] INTERNATIONAL NORM RATIO 0.9 0.9 - 1.1 [facility] Comment:INTERNATIONAL NORMAL IZED RATIO (INR) [...] Provider LAB BLOOD ORDERAB LES Final Result [facility] [address] [place] [address] [phone] * (ABNORMAL) CBC auto differential (09/08/2024 2:45 PM EST) White Blood Count 8.5 4.8 - 10.8 X10*3/uL [facility] Red Blood Count 4.86 4.60 - 5.80 X10*6/uL [facility] Hemoglobin 14.3 14.0 - 18.0 g/dl [facility] Hematocrit 41.8(L) 42.0 - 52.0 % [facility] Mean Corpuscular Volume 86.0 80.0 - 98.0 fL [facility] Mean Corpuscular Hemoglobin 29.4 27.0 - 33.0 pg [facility] Mean Corpuscular HGB Conc 34.2 31.0 - 36.0 g/dl [facility] Red Cell Distribution Width 12.7 11.0 - 16.0 % [facility] Platelet Count 222 160 - 400 X10*3/uL [facility] Mean Platelet Volume 9.7 9.4 - 12.4 fL [facility] Neutrophils Percent Auto 64.9 45 - 73 % [facility] Imm Gran Pct Auto 0.1 0.0 - 0.4 % [facility] Lymphocytes Percent Auto 18.8(L) 20 - 40 % [facility] Monocytes Percent Auto 10.6 2 - 11 % [facility] Eosinophils Percent Auto 4.9(H) 0 - 4 % [facility] Basophils Percent Auto 0.7 0 - 2 % [facility] NRBC Pct Auto 0.0 0.0 - 0.2 /100WBC [facility] Neutrophils Absolute Auto 5.5 2.0 - 8.3 x10*3/uL [facility] Imm Gran Abs Auto 0.01 0.00 - 0.03 X10*3/uL [facility] Lymphocytes Absolute Auto 1.6 1.2 - 4.9 X10*3/uL [facility] Monocytes Absolute Auto 0.9 0.1 - 1.2 X10*3/uL [facility] Eosinophils Absolute Auto 0.4 0.0 - 0.4 X10*3/uL [facility] Basophils Absolute Auto 0.1 0.0 - 0.2 X10*3/uL [facility] NRBC Abs Auto 0.000 0.0 - 0.012 X10*3/uL [facility] 09/08/2024 2:45 PM EST 09/08/2024 2:50 PM EST us Generic External Data Provider LAB BLOOD ORDERAB LES Final Result Performing Organization Address [facility]/State/[facility] Co de Phone Number [facility] [address] [place] [address] [phone] * XR Chest 2 Views (09/08/2024 2:29 PM EST) Anatomical Region Laterality Modality Chest Radiographic Brenna ging 09/08/2024 2:29 PM EST Narrative 09/08/2024 2:59 PM EST ? [facility] ?[address] ?[place] [address] ?XRay Report ? Signed ? Patient: Garcia Vargas,Francisco J ?MR#: M ?? [id number] ? : 1960 ?Acct:[id number] ? Age/Sex: 64 / M ?ADM Date: 02/25/25 ? Loc: HO.ED ? Attending Dr: ? Ordering Physician: Helena Green NP ?? Date of Service: 09/08/24 ?? Procedure(s): XR chest 2V ?? Accession Number(s): [id number] ? cc: Chun Michel MD; Helena Green [...] DD/ 1429 ? TD/TT: 09/08/24 1450 ? Promotion Producer: ? Procedure Note Sagrario, Image - 09/08/[address] [address] XRay Report Signed Patient: Johny Romeo#: M [id number] : 8Acct:[id number] Age/Sex: 64 / MADM Date: 09/08/24 Loc: HO.ED Attending Dr: Ordering Physician: Helena Green NP Date of Service: 09/08/24 Procedure(s): XR chest 2V Accession Number(s): [id number] cc: Chun Michel MD; Peter,Helena BROOM MAKER EXAMINATION: XR CHEST CLINICAL INFORMATION: chest pain [...] Jimenez MD 09/08/2024 02:56 PM EST RP Dictated By: Octaviano Ying MD Signed By: <Electronically signed by Octaviano Abdi MDin OV> 09/08/24 1456 DD/ 1429 TD/TT: 09/08/24 1450 Promotion Producer: [facility] External Provider IMG XR PROCEDURES Final Result * CT Chest w/o Contrast (08/26/2024 10:43 AM EST) Anatomical Region Laterality Modality Body, Chest Computed Tomogra phy 08/26/2024 10:4 3 AM EST Narrative 08/26/2024 10:44 AM EST ? [facility] ?[address] ?[place] [address] ? CT Scan Report ? Signed ? Patient: Radha Aimna,Francisco J ?MR#: M ?? [id number] ? : 1960 ?Acct:[id number] ? Age/Sex: 64 / M ?ADM Date: //25 ? Loc: HO.CT ? Attending Dr: Shane Meyer MD ? Ordering Physician: Shane Meyer MD ?? Date of Service: 08/25/24 ?? Procedure(s): CT chest wo IV con ?? Accession Number(s): [id number] ? cc: Chun Michel MD; Shane Meyer MD ? Report Number: ?? [id number]: Total DLP = ??153.00 mGy-cm ? CLINICAL [...] by Narinder Ellsworth MD in OV> ? 08/26/24 1044 ? DD/ 1043 ? TD/TT: 08/26/24 1043 ? Promotion Producer: ? Procedure Note Sagrario, Image - 08/26/[address] [address] CT Scan Report Signed Patient: Johny Romeo#: M [id number] : 8Acct:[id number] Age/Sex: 64 / MADM Date: 08/25/24 Loc: HO.CT Attending Dr: Shane Meyer MD Ordering Physician: Shane Meyer MD Date of Service: 08/25/24 Procedure(s): CT chest wo IV con Accession Number(s): [id number] cc: Chun Michel MD; Shane Meyer MD Report Number: [id number]: Total DLP = 153.00 mGy-cm CLINICAL HISTORY: [...] 08/26/24 1044 DD/ 1043 TD/TT: 08/26/24 1043 Promotion Producer: [facility] External Provider IMG CT PROCEDURES Final Result * High Sensitivity Troponin I (08/09/2024 9:15 AM EST) TROPONIN I HIGH SENSITIVITY <2.7 <3.5 - 35.0 ng/L [facility] Comment:The Wheeler high sens itivity Troponin-I results should beused in conjunction with other diagnostic information suchas ECG, clinical observations and information, and patientsymptoms to aid in the diagnosis of MD. 08/09/2024 9:15 AM EST 08/09/2024 9:19 AM EST us Generic External Data Provider LAB BLOOD ORDERAB LES Final Result Performing Organization Address City/[facility]/ZIP Co de Phone Number [facility] [address] [place] [phone] * (ABNORMAL) Basic Metabolic Panel (08/09/2024 9:15 AM EST) Sodium 139 135 - 145 mmol/L [facility] Potassium 3.8 3.3 - 5.1 mmol/L [facility] Chloride 107 96 - 108 mmol/L [facility] Carbon Dioxide 23 22 - 29 mmol/L [facility] Anion Gap 13 12 - 20 [facility] Urea Nitrogen (BUN) 21(H) 9 - 16 mg/dL [facility] Creatinine, Serum 0.81 0.5 - 1.4 mg/dL [facility] Creatinine Clr Calc Pharmacy 92.6 [facility] Comment:eGFR (calculated fro m the MDRD study equation) and eCrCl(calculated from the Cockcroft-Gault equation) are based ondifferent parameters and may not yield comparable results.If eCrCl result is absurd, please check patient'sheight/weight. Estimated Glomerular Filt Rate >60 [facility] Comment:Chronic Kidney Disea se: Estimated GFR < 60 mL/min/1.71f4Thnvhp Kidney Disease: Estimated GFR < 15 mL/min/1.73m2 Glucose 100 60 - 115 mg/dL [facility] Calcium 9.7 8.4 - 10.2 mg/dL [facility] 08/09/2024 9:1 5 AM EST 08/09/2024 9:19 AM EST us Generic External Data Provider LAB BLOOD ORDERAB LES Final Result Performing Organization Address City/[facility]/ZIP Co de Phone Number [facility] [address] [place] [phone] [phone] * (ABNORMAL) CBC auto differential (08/09/2024 9:15 AM EST) White Blood Count 8.6 4.8 - 10.8 X10*3/uL [facility] Red Blood Count 4.95 4.60 - 5.80 X10*6/uL [facility] Hemoglobin 14.6 14.0 - 18.0 g/dl [facility] Hematocrit 42.6 42.0 - 52.0 % [facility] Mean Corpuscular Volume 86.1 80.0 - 98.0 fL [facility] Mean Corpuscular Hemoglobin 29.5 27.0 - 33.0 pg [facility] Mean Corpuscular HGB Conc 34.3 31.0 - 36.0 g/dl [facility] Red Cell Distribution Width 12.5 11.0 - 16.0 % [facility] Platelet Count 277 160 - 400 X10*3/uL [facility] Mean Platelet Volume 9.5 9.4 - 12.4 fL [facility] Neutrophils Percent Auto 48.6 45 - 73 % [facility] Imm Gran Pct Auto 0.2 0.0 - 0.4 % [facility] Lymphocytes Percent Auto 31.2 20 - 40 % [facility] Monocytes Percent Auto 13.5(H) 2 - 11 % [facility] Eosinophils Percent Auto 5.8(H) 0 - 4 % [facility] Basophils Percent Auto 0.7 0 - 2 % [facility] NRBC Pct Auto 0.0 0.0 - 0.2 /100WBC [facility] Neutrophils Absolute Auto 4.2 2.0 - 8.3 x10*3/uL [facility] Imm Gran Abs Auto 0.02 0.00 - 0.03 X10*3/uL [facility] Lymphocytes Absolute Auto 2.7 1.2 - 4.9 X10*3/uL [facility] Monocytes Absolute Auto 1.2 0.1 - 1.2 X10*3/uL [facility] Eosinophils Absolute Auto 0.5(H) 0.0 - 0.4 X10*3/uL [facility] Basophils Absolute Auto 0.1 0.0 - 0.2 X10*3/uL [facility] NRBC Abs Auto 0.000 0.0 - 0.012 X10*3/uL [facility] 08/09/2024 9:15 AM EST 08/09/2024 9:19 AM EST us Generic External Data Provider LAB BLOOD ORDERAB LES Final Result [facility] [address] [place] [phone] [phone] documented in this encounter Visit Diagnoses Not on filedocumented in this encounter Additional Health Concerns Assessment Noted Time PHQ-9 Depression Total Score: 1 11/12/19 24 11:09 AM EDT documented as of this encounter Care Teams Games Manager Relationship Specialty Start Date End Date Chun Porras MD [address] [place] [address] PCP - General Internal Medicine 05/26/14 Lynsey Madison PharmD [address] [place] [address] Pharmacist Internal Medicine 09/26/23 documented as of this encounter
--- OUTSIDE RECORDS SUMMARY | 2024-09-08 15:46 | XMS_ITS | Encounter Summary ---
Author Organization [employer] Address [address] 7[address] [place] [address] Care Team Providers Care Concert Singer Name Role Phone Chun Porras MD Primary Care Provide r Lynsey Madison PharmD Unavailable [phone] Reason for Visit * Reason Comments Med Refill Encounter Details Date Type Department Care Team ([facility] st Contact Info) Description 10/18/2023 Refill [facility] [address] [place] [address] Chun Porras MD [address] [place] [address] Essential hypertension Social History Tobacco Use Types [...] Description 09/10/2024 11:30 AM EST Office Visit [facility] [address] [place] [phone] Chun Porras MD [address] [place] [address] 09/22/2024 11:00 AM EDT Office Visit [address] [address] 09/22/2024 1:00 PM EDT Telemedicine [address] [address] Chun Porras MD [address] [place] [address] documented as of this encounter Goals Goal Patient Goal Type Associated Problems Recent Progress Patient-Stated? Author Blood Pressure < 140/90 Blood Pressure Essential hypertension 136/84(2024 3:06 PM EST) No Lynsey Madison, Sherwin documented as of this encounter Visit Diagnoses Diagnosis Essential hypertension Unspecified essential hypertension documented in this encounter Additional Health Concerns Assessment Noted Time PHQ-9 Depression Total Score: 3 07/06/20 22 11:00 AM EST documented as of this encounter Care Teams Concert Singer Relationship Specialty Start Date End Date Chun Porras MD [address] [place] [phone] PCP - General Internal Medicine 05/26/14 Lynsey Madison, MichaelD [address] [place] [phone] Pharmacist Internal Medicine 09/26/23 documented as of this encounter
--- OUTSIDE RECORDS SUMMARY | 2024-09-08 15:47 | XMS_ITS | Encounter Summary ---
Author Organization [employer] Address [address] 7[address] [place] [address] Care Team Providers Care Aircraft Mechanic Armament Name Role Phone Chun Porras MD Primary Care Provide r Lynsey Madison PharmD Unavailable [phone] Reason for Visit * Reason Comments Med Refill Encounter Details Date Type Department Care Team ([facility] st Contact Info) Description 09/18/2023 Refill [facility] [address] [place] [address] Chun Porras MD [address] [place] [address] Mixed hyperlipidemia Social History Tobacco Use Types [...] Description 09/10/2024 11:30 AM EST Office Visit [facility] [address] [place] [address] Chun Porras MD [address] [place] [address] 09/22/2024 11:00 AM EDT Office Visit [address] [address] 09/22/2024 1:00 PM EDT Telemedicine [address] [address] Chun Porras MD [address] [place] [address] documented as of this encounter Goals Goal [...] documented as of this encounter Care Teams Aircraft Mechanic Armament Relationship Specialty Start Date End Date Chun Porras MD [address] [place] [address] PCP - General Internal Medicine 05/26/14 Lynsey Madison, Sherwin [address] [place] [address] Pharmacist Internal Medicine 09/26/23 documented as of this encounter
--- OUTSIDE RECORDS SUMMARY | 2024-09-08 15:47 | XMS_ITS | Encounter Summary ---
Author Organization [employer] Address [address] 7[address] [place] [address] Care Team Providers Care Lead Presser Name Role Phone Chun Porras MD Primary Care Provide r Lynsey Madison PharmD Unavailable [phone] Encounter Details Date Type Department Care Team (Latest Contact Info) Description 08/21/2024 Travel Social History Tobacco Use Types Packs/Day Years [...] Description 09/10/2024 11:30 AM EST Office Visit [facility] [address] [place] [address] Chun Porras MD [address] [place] [address] 09/22/2024 11:00 AM EDT Office Visit [address] [address] 09/22/2024 1:00 PM EDT Telemedicine [address] [address] Chun Porras MD [address] [place] [address] documented as of this encounter Goals Goal [...] documented as of this encounter Care Teams Lead Presser Relationship Specialty Start Date End Date Chun Porras MD [address] [place] [phone] PCP - General Internal Medicine 05/26/14 Lynsey Madison, MichaelD [address] [place] [phone] Pharmacist Internal Medicine 09/26/23 documented as of this encounter
--- OUTSIDE RECORDS SUMMARY | 2024-09-08 15:47 | XMS_ITS | Encounter Summary ---
Author Organization [employer] Address [address] [place] [address] Care Team Providers Care Visiting Teacher Name Role Phone Chun Porras MD Primary Care Provide r Lynsey aMdison PharmD Unavailable [phone] Reason for Visit * Reason Comments Med Refill Encounter Details Date Type Department Care Team ([facility] st Contact Info) Description 06/21/2023 Refill [facility] [address] [place] [address] Chun Porras MD [address] [place] [address] Type 2 diabetes mellitus without complication, unspecified whether senior living insulin use ([facility]); Mixed hyperlipidemia Social History Tobacco Use Types [...] Description 09/10/2024 11:30 AM EST Office Visit [address] [address] Chun Porras MD [address] [place] [address] 09/22/2024 11:00 AM EDT Office Visit [address] [address] 09/22/2024 1:00 PM EDT Telemedicine [address] [address] Chun Porras MD [address] [place] [address] documented as of this encounter Visit Diagnoses Diagnosis Type 2 diabetes mellitus without complication, unspecified whether long term care administrator insulin use ([facility]) Mixed hyperlipidemia documented in this encounter Additional Health Concerns Assessment Noted Time PHQ-9 Depression Total Score: 3 07/06/20 22 11:00 AM EST documented as of this encounter Care Teams Visiting Teacher Relationship Specialty Start Date End Date Chun Porras MD [address] [place] [phone] PCP - General Internal Medicine 05/26/14 Lynsey Madison, MichaelD [address] [place] [address] Pharmacist Internal Medicine 09/26/23 documented as of this encounter
--- OUTSIDE RECORDS SUMMARY | 2024-09-08 15:47 | XMS_ITS | Encounter Summary ---
Author Organization [employer] Address [address] [place] [address] Care Team Providers Care Powder Hand Name Role Phone Chun Porras MD Primary Care Provide r Lynsey Madison PharmD Unavailable [phone] Reason for Visit * Reason Comments Med Refill Encounter Details Date Type Department Care Team ([facility] st Contact Info) Description 07/04/2023 Refill [facility] [address] [place] [address] Chun Porras MD [address] [place] [address] Type 2 diabetes mellitus without complication, unspecified whether alf insulin use ([facility]) Social History Tobacco Use Types Packs/Day [...] Description 09/10/2024 11:30 AM EST Office Visit [facility] [address] [place] [address] Chun Porras MD [address] [place] [address] 09/22/2024 11:00 AM EDT Office Visit [address] [address] 09/22/2024 1:00 PM EDT Telemedicine [address] [address] Chun Porras MD [address] [place] [address] documented as of this encounter Visit Diagnoses Diagnosis Type 2 diabetes mellitus without complication, unspecified whether superintendent terminal insulin use ([facility]) documented in this encounter Additional Health Concerns Assessment Noted Time PHQ-9 Depression Total Score: 3 07/06/20 22 11:00 AM EST documented as of this encounter Care Teams Powder Hand Relationship Specialty Start Date End Date Chun Porras MD [address] [place] [phone] PCP - General Internal Medicine 05/26/14 Lynsey Madison, PharmD [address] [place] [address] Pharmacist Internal Medicine 09/26/23 documented as of this encounter
--- OUTSIDE RECORDS SUMMARY | 2024-09-08 15:47 | XMS_ITS | Encounter Summary ---
Author Organization [employer] Address [address] [place] [address] Care Team Providers Care Flower Buncher Or Picker Name Role Phone Chun Porras MD Primary Care Provide r Lynsey Madison PharmD Unavailable [phone] Reason for Visit * Reason Comments Med Refill Encounter Details Date Type Department Care Team ([facility] st Contact Info) Description 04/23/2023 Refill [facility] [address] [place] [address] Chun Porras MD [address] [place] [address] Benign prostatic hyperplasia with lower urinary tract [...] Description 09/10/2024 11:30 AM EST Office Visit [facility] [address] [place] [address] Chun Porras MD [address] [place] [address] 09/22/2024 11:00 AM EDT Office Visit [address] [address] 09/22/2024 1:00 PM EDT Telemedicine [address] [address] Chun Porras MD [address] [place] [address] documented as of this encounter Visit Diagnoses Diagnosis Benign prostatic hyperplasia with lower urinary tract symptoms documented in this encounter Additional Health Concerns Assessment Noted Time PHQ-9 Depression Total Score: 3 07/06/20 22 11:00 AM EST documented as of this encounter Care Teams Flower Buncher Or Picker Relationship Specialty Start Date End Date Chun Porras MD [address] [place] [address] PCP - General Internal Medicine 05/26/14 Lynsey Madison, MichaelD [address] [place] [phone] Pharmacist Internal Medicine 09/26/23 documented as of this encounter
--- OUTSIDE RECORDS SUMMARY | 2024-09-08 15:47 | XMS_ITS | Encounter Summary ---
Author Organization [employer] Address [address] 7t [place] [address] Care Team Providers Care Stock Receiver Name Role Phone Chun Porras MD Primary Care Provide r Lynsey [place] PharmD Unavailable [phone] Reason for Visit * Reason Onset Date Comments Med Refill 08/13/2024 Encounter Details Date Type Department Care Team ([facility] st Contact Info) Description 08/13/2024 Refill [facility] MED & PEDS [address] [place] [address] Maritza Mejia, RN [address] [place] [address] Chronic midline low back pain without sciatica [...] 11:30 AM EST Office Visit [facility] MEDICINE [address] [place] [address] Chun Porras MD [address] [place] [address] 09/22/2024 11:00 AM EDT Office Visit [address] [address] 09/22/2024 1:00 PM EDT Telemedicine [facility] MEDICINE [address] [place] [address] Chun Porras MD [address] [place] [address] documented as of this encounter Goals Goal [...] documented as of this encounter Care Teams Stock Receiver Relationship Specialty Start Date End Date Chun Porras MD [address] [place] [address] PCP - General Internal Medicine 05/26/14 Lynsey [place] PharmD 230 [place] [address] Pharmacist Internal Medicine 09/26/23 documented as of this encounter
--- OUTSIDE RECORDS SUMMARY | 2024-09-08 15:47 | XMS_ITS | Encounter Summary ---
Author Organization [employer] Address [address] 7t [place] [address] Care Team Providers Care General Labor Forklift Operator Name Role Phone Chun Porras MD Primary Care Provide r Lynsey [place] PharmD Unavailable [phone] Reason for Visit * Reason Onset Date Comments Med Refill 08/13/2024 Encounter Details Date Type Department Care Team ([facility] st Contact Info) Description 08/13/2024 Telephone [facility] MEDICINE [address] [place] [address] Chun Porras MD 230 [place] [address] Med Refill Social History Tobacco Use Types [...] encounter Miscellaneous Notes * Telephone Encounter - Ann Pastor - 08/13/2024 1:55 PM EST Patient walked in requesting refill of medication: Tramadol 50 mg - per Patient med due on Aug 15 but he wants it before the weekend. documented in this encounter Plan of Treatment Upcoming Encounters Date Type Department Care Team ([facility] st Contact Info) Description 09/10/2024 11:30 AM EST Office Visit [facility] MEDICINE [address] [place] [address] Chun Porras MD [address] [place] [address] 09/22/2024 11:00 AM EDT Office Visit [address] [address] 09/22/2024 1:00 PM EDT Telemedicine [address] [address] Chun Porras MD [address] [place] [address] documented as of this encounter Goals Goal [...] documented as of this encounter Care Teams General Labor Forklift Operator Relationship Specialty Start Date End Date Chun Porras MD [address] [place] [address] PCP - General Internal Medicine 05/26/14 Lynsey [place], PharmD [address] [place] [address] Pharmacist Internal Medicine 09/26/23 documented as of this encounter
--- OUTSIDE RECORDS SUMMARY | 2024-09-08 15:47 | XMS_ITS | Encounter Summary ---
Author Organization [employer] Address [address] [facility] [address] 7t [place] [address] Care Team Providers Care Knuckle Bender Name Role Phone Chun Porras MD Primary Care Provide r Lynsey [place] PharmD Unavailable [phone] Reason for Visit * Reason Comments Med Refill Encounter Details Date Type Department Care Team ([facility] st Contact Info) Description 08/13/2024 Refill [facility] MEDICINE [address] [place] [address] Chun Porras MD 230 [place] [address] Essential hypertension; Type 2 diabetes mellitus without complication, unspecified whether usp insulin use ([facility]); Erectile dysfunction, unspecified erectile dysfunction type Social History Tobacco Use Types Packs/Day Years [...] Office Visit [facility] MEDICINE [address] [place] [address] Chun Porras MD [address] [place] [address] 09/22/2024 11:00 AM EDT Office Visit [facility] MEDICINE [address] [place] [address] 09/22/2024 1:00 PM EDT Telemedicine [address] [address] Chun Porras MD [address] [place] [address] documented as of this encounter Goals Goal Patient Goal Type Associated Problems Recent Progress Patient-Stated? Author Blood Pressure < 140/90 Blood Pressure Essential hypertension 136/84(2024 3:06 PM EST) No [place], Jerril, PharmD documented as of this encounter Visit Diagnoses Diagnosis Essential hypertension Unspecified essential hypertension Type 2 diabetes mellitus without complication, unspecified whether usp insulin use ([facility]) Erectile dysfunction, unspecified erectile dysfunction type documented in this encounter Additional Health Concerns Assessment Noted Time PHQ-9 Depression Total Score: 1 11/12/19 11:09 AM EDT documented as of this encounter Care Teams Knuckle Bender Relationship Specialty Start Date End Date Chun Porras MD 230 [place] [address] PCP - General Internal Medicine 05/26/14 Lynsey [place], MichaelD [address] [place] [address] Pharmacist Internal Medicine 09/26/23 documented as of this encounter
--- OUTSIDE RECORDS SUMMARY | 2024-09-08 15:47 | XMS_ITS | Encounter Summary ---
Author Organization [employer] Address [address] 7t [place] [address] Care Team Providers Care Gummed Tape Press Operator Name Role Phone Chun Porras MD Primary Care Provide r Lynsey [place] PharmD Unavailable [phone] Reason for Visit * Reason Comments Med Refill Encounter Details Date Type Department Care Team ([facility] st Contact Info) Description 04/21/2023 Refill [facility] MEDICINE [address] [place] [address] Name, MD Cristhian [address] [place] [address] Essential hypertension Social History Tobacco Use Types [...] Description 09/10/2024 11:30 AM EST Office Visit [facility] MEDICINE [address] [place] [address] Chun Porras MD [address] [place] [address] 09/22/2024 11:00 AM EDT Office Visit [address] [address] 09/22/2024 1:00 PM EDT Telemedicine [address] [address] Chun Porras MD [address] [place] [address] documented as of this encounter Visit Diagnoses Diagnosis Essential hypertension Unspecified essential hypertension documented in this encounter Additional Health Concerns Assessment Noted Time PHQ-9 Depression Total Score: 3 07/06/20 22 11:00 AM EST documented as of this encounter Care Teams Gummed Tape Press Operator Relationship Specialty Start Date End Date Chun Porras MD [address] [place] [address] PCP - General Internal Medicine 05/26/14 Lynsey [place], MichaelD [address] [place] [address] Pharmacist Internal Medicine 09/26/23 documented as of this encounter
--- OUTSIDE RECORDS SUMMARY | 2024-09-08 15:47 | XMS_ITS | Encounter Summary ---
Author Organization [employer] Address [address] 7t [place] [address] Care Team Providers Care Paraprofessional Interpreter Name Role Phone Chun Porras MD Primary Care Provide r Lynsey [place] PharmD Unavailable [phone] Reason for Visit * Reason Onset Date Comments Med Refill 03/22/2023 Encounter Details Date Type Department Care Team (Late st Contact Info) Description 03/14/2023 Refill [facility] MEDICINE 230 [place] [address] Chun Porras MD 230 [place] [address] Chronic midline low back pain without sciatica [...] medication. He can be contact any time. Albanian Speaker * Telephone Encounter - Arlette Phipps [...] 11:30 AM EST Office Visit [facility] MEDICINE [address] [place] [address] Chun Porras MD 230 [place] [address] 09/22/2024 11:00 AM EDT Office Visit [facility] MEDICINE [address] [place] [address] 09/22/2024 1:00 PM EDT Telemedicine [facility] MEDICINE [address] [place] [address] Chun Porras MD [address] [place] [address] documented as of this encounter Visit Diagnoses Diagnosis Chronic midline low back pain without sciatica documented in this encounter Additional Health Concerns Assessment Noted Time PHQ-9 Depression Total Score: 3 07/06/20 22 11:00 AM EST documented as of this encounter Care Teams Paraprofessional Interpreter Relationship Specialty Start Date End Date Chun Porras MD [address] [place] [address] PCP - General Internal Medicine 05/26/14 Lynsey [place], MichaelD [address] [place] [address] Pharmacist Internal Medicine 09/26/23 documented as of this encounter
--- OUTSIDE RECORDS SUMMARY | 2024-09-08 15:47 | XMS_ITS | Encounter Summary ---
Author Organization [employer] Address [address] 7t [place] [address] Care Team Providers Care Saddle Stitch Operator Name Role Phone Chun Porras MD Primary Care Provide r Lynsey [place] PharmD Unavailable [phone] Reason for Visit * Reason Comments Med Refill Encounter Details Date Type Department Care Team ([facility] st Contact Info) Description 04/25/2023 Refill [facility] MEDICINE 230 [place] [address] Name, MD Cristhian [address] [place] [address] Essential hypertension Social History Tobacco Use Types [...] Description 09/10/2024 11:30 AM EST Office Visit [facility] MEDICINE [address] [place] [address] Chun Porras MD [address] [place] [address] 09/22/2024 11:00 AM EDT Office Visit [address] [address] 09/22/2024 1:00 PM EDT Telemedicine [address] [address] Chun Porras MD [address] [place] [address] documented as of this encounter Visit Diagnoses Diagnosis Essential hypertension Unspecified essential hypertension documented in this encounter Additional Health Concerns Assessment Noted Time PHQ-9 Depression Total Score: 3 07/06/20 22 11:00 AM EST documented as of this encounter Care Teams Saddle Stitch Operator Relationship Specialty Start Date End Date Chun Porras MD [address] [place] [address] PCP - General Internal Medicine 05/26/14 yLnsey [place], MichaelD [address] [place] [address] Pharmacist Internal Medicine 09/26/23 documented as of this encounter
--- OUTSIDE RECORDS SUMMARY | 2024-09-08 15:47 | XMS_ITS | Encounter Summary ---
Author Organization [employer] Address [address] 7t [place] [address] Care Team Providers Care Plate Maker Zinc Name Role Phone Chun Porras MD Primary Care Provide r Lynsey [place] PharmD Unavailable [phone] Reason for Visit * Reason Comments controlled substance treatment Encounter Details Date Type Department Care Team (Latest Contact Info) Description 08/21/2024 10:30 AM EST Clinical Support [facility] MEDICINE 230 [place] [address] Maritza Mejia, SANDRA 505 [place] [address] Chronic midline low back pain without sciatica [...] the past 12 months, has t he [employer], gas, oil or water [employer] threatened to shut off services in your home? No 11/04/2023 Depression Answer Date Recorded Patient Health Questionnaire-2 Score 0 11/12/2023 Sex and Gender Information Value Date Recorded Sex Assigned at Male 05/14/2022 10:26 AM EDT Legal Sex Male 10:26 AM EDT Gender Identity Male 05/14/2022 10:26 AM EDT Sexual Orientation Straight 05/14/2022 10 :26 AM EDT documented as of this encounter Progress Notes * Maritza Mejia RN - 08/21/2024 10:30 AM EST S: ORTHOPEDIC SPECIALIST [place]. Patient prescribed Tramadol 50mg PO q8h PRN. States has been taking as prescribed. Pt denies use of street drugs and nicotine. States occasional alcohol use, states understands the risks associated with the combination of ETOH and this medication. States uses Marijuana recreationally. Currently rates pain a 8-9/10, states he did not take medication yet today. Current pain site is back.Patient states medication provides about 50% pain relief. Last PCP appt 06/09/25, next f/u 09/10/24.No questions/ concerns at this time. O: MANAGER OF APPLICATION DEVELOPMENT verified today. Rx last filled on 08/13/24. Pill count performed, 64 pills left, 59 expected.Utox performed, positive for THC only; as expected. A: ORTHOPEDIC SPECIALIST Agreement RV: Chronic Opioid use related to pain. P: Pt to continue taking medication only as prescribed; chronic pain group/ ORTHOPEDIC SPECIALIST visit scheduled for09/22/24 @ 11am. F/u with PCP 09/10/24. Reminder slip given. F/U sooner PRN. Pt verbalized understanding and agreed to plan. documented in this encounter Plan of Treatment Upcoming Encounters Date Type Department Care Team (Late st Contact Info) Description 09/10/2024 11:30 AM EST Office Visit [facility] MEDICINE [address] [facility] [place] [address] Chun Porras MD [address] [facility] [place] [phone] 09/22/2024 11:00 AM EDT Office Visit [facility] MEDICINE [address] [facility] [place] [phone] 09/22/2024 1:00 PM EDT Telemedicine [facility] [address] [facility] [place], [place] [phone] Chun Porras MD [address] [facility] [place] [phone] documented as of this encounter Goals Goal Patient Goal Type Associated Problems Recent Progress Patient-Stated? Author Blood Pressure < 140/90 Blood Pressure Essential hypertension 136/84(2024 3:06 PM EST) No Lynsey [place], PharmD documented as of this encounter Procedures Procedure Name Priority Date/Time Associated Diagnosis Comments POCT LORENA-14 URINE DRUG SCREEN Routine 08/21/2024 10:15 AM EST Chronic midline low back pain without sciatica documented in this encounter Results * POCT LORENA-14 Urine Drug Screen (08/21/2024 10:15 AM EST) THC Positive Urine Urine specimen obtained by clean catch procedure / Unknown 08/21/2024 10:15 AM EST Narrative Maritza Mejia RN - 08/21/2024 10:15 AM EST .UTOX cup Lot#[id number] Exp. 04/08/26 Internal Pass Control Chun Mckinley MD POINT OF CARE TEST EN TER/EDIT ORDERABLES Final Result documented in this encounter Visit Diagnoses Diagnosis Chronic midline low back pain without sciatica documented in this encounter Additional Health Concerns Assessment Noted Time PHQ-9 Depression Total Score: 1 11/12/19 24 11:09 AM EDT documented as of this encounter Care Teams Plate Maker Zinc Relationship Specialty Start Date End Date Chun Porras MD [address] [place] [address] PCP - General Internal Medicine 05/26/14 Lynsey [place] PharmD [address] [place] [address] Pharmacist Internal Medicine 09/26/23 documented as of this encounter
--- OUTSIDE RECORDS SUMMARY | 2024-09-08 15:47 | XMS_ITS | Encounter Summary ---
Author Organization [employer] Address [address] [facility] [address] 7t [place] [address] Care Team Providers Care Temp Recruiter Name Role Phone Chun Porras MD Primary Care Provide r Lynsey [place] PharmD Unavailable [phone] Reason for Visit * Reason Comments Med Refill Encounter Details Date Type Department Care Team ([facility] st Contact Info) Description 08/17/[address] [facility] MEDICINE 230 [place] [address] Lynsey [place], PharmD 230 [place] [address] Mixed hyperlipidemia Social History Tobacco Use Types [...] the past 12 months, has t he [employer], gas, oil or water company threatened to [...] Description 09/10/2024 11:30 AM EST Office Visit [facility] MEDICINE [address] [place] [address] Chun Porras MD [address] [place] [address] 09/22/2024 11:00 AM EDT Office Visit [address] [address] 09/22/2024 1:00 PM EDT Telemedicine [facility] MEDICINE [address] [place] [address] Chun Porras MD [address] [place] [address] documented as of this encounter Goals Goal [...] documented as of this encounter Care Teams Temp Recruiter Relationship Specialty Start Date End Date Chun Porras MD 230 [place] [address] PCP - General Internal Medicine 05/26/14 Lynsey [place] PharmD 230 [place] [address] Pharmacist Internal Medicine 09/26/23 documented as of this encounter
--- OUTSIDE RECORDS SUMMARY | 2024-09-08 15:47 | XMS_ITS | Encounter Summary ---
Author Organization [employer] Address [address] 7t [place] [address] Care Team Providers Care Corral Boss Name Role Phone Chun Porars MD Primary Care Provide r Lynsey [place] PharmD Unavailable [phone] Reason for Visit * Reason Comments SDOH Concerns VIVIAN Thomas SDOH Encounter Details Date Type Department Care Team ([facility] st Contact Info) Description 08/28/2024 Patient Outreach [facility] MEDICINE 230 [place] [address] Chun Porras MD 230 [place] [address] SDOH Concerns (VIVIAN Thomas SDOH ) Social History Tobacco Use Types Packs/Day Years [...] as of this encounter Progress Notes * Heather Claire - 08/28/2024 11:42 AM EST CHW Heather Claire, placed outbound call to patient introducing herself from [facility], in regards to SDOH positive (issues with pest control. Patient's name and was confirmed. Patient stated that landlord is aware of pest control issue and has exterminated the property several times. Pest control issue continues. Patient in satisfied with landlords attention to matter. CHW provided patient with [place] [employer]'s contact information for reference if needed. Patient does not think Code Enforcement is necessary at this time. CHW advise patient to inform the Gauge And Weigh Machine Adjuster from [facility] to see if there are any other resources they can provide to patient. Patient verbalized understanding and stated that he will. documented in this encounter Plan of Treatment Upcoming Encounters Date Type Department Care Team (Late st Contact Info) Description 09/10/2024 11:30 AM EST Office Visit [facility] [place] [phone] Chun Porras MD Reece [place] [phone] 09/22/2024 11:00 AM EDT Office Visit [facility] [place] [phone] 09/22/2024 1:00 PM EDT Telemedicine [facility] [place]ece [place] [phone] Chun Porras MD [place] [phone] documented as of this encounter Goals Goal [...] documented as of this encounter Care Teams Corral Boss Relationship Specialty Start Date End Date Chun Porras MD [facility] [address] PCP - General Internal Medicine 05/26/14 Lynsey [place], PharmD [facility] [address] Pharmacist Internal Medicine 09/26/23 documented as of this encounter
--- OUTSIDE RECORDS SUMMARY | 2024-09-08 15:47 | XMS_ITS | Encounter Summary ---
Author Organization [employer] Address [address] 7t [place] [address] Care Team Providers Care Online Affiliate Marketing Manager Name Role Phone Chun Porras MD Primary Care Provide r Lynsey [place] PharmD Unavailable [phone] Reason for Visit * Reason Comments Med Refill Encounter Details Date Type Department Care Team ([facility] st Contact Info) Description 09/29/2023 Refill [facility] MEDICINE 230 [place] [address] Chun Porras MD 230 [place] [address] Type 2 diabetes mellitus without complication, unspecified whether custodial insulin use ([facility]) Social History Tobacco Use Types Packs/Day [...] 09/10/2024 11:30 AM EST Office Visit [address] [address] Chun Porras MD [address] [place] [address] 09/22/2024 11:00 AM EDT Office Visit [address] [address] 09/22/2024 1:00 PM EDT Telemedicine [address] [address] Chun Porras MD [address] [place] [address] documented as of this encounter Goals Goal Patient Goal Type Associated Problems Recent Progress Patient-Stated? Author Blood Pressure < 140/90 Blood Pressure Essential hypertension 136/84(2024 3:06 PM EST) No Lynsey [place], Sherwin documented as of this encounter Visit Diagnoses Diagnosis Type 2 diabetes mellitus without complication, unspecified whether buttermaker insulin use ([facility]) documented in this encounter Additional Health Concerns Assessment Noted Time PHQ-9 Depression Total Score: 3 07/06/20 22 11:00 AM EST documented as of this encounter Care Teams Online Affiliate Marketing Manager Relationship Specialty Start Date End Date Chun Porras MD 230 [place] [address] PCP - General Internal Medicine 05/26/14 Lynsey [place], MichaelD 230 [place] [address] Pharmacist Internal Medicine 09/26/23 documented as of this encounter
--- OUTSIDE RECORDS SUMMARY | 2024-09-08 15:47 | XMS_ITS | Encounter Summary ---
Author Organization [employer] Address [address] [facility] [address] 7t [place] [address] Care Team Providers Care Family Protection Specialist Name Role Phone Chun Porras MD Primary Care Provide r Lynsey [place] PharmD Unavailable [phone] Reason for Visit * Reason Comments Med Refill Encounter Details Date Type Department Care Team ([facility] st Contact Info) Description 08/22/2023 Refill [facility] MEDICINE 230 [place] [address] Colleen Lou FNP 230 [place] [address] Chronic obstructive pulmonary disease with (acute) exacerbation [...] Description 09/10/2024 11:30 AM EST Office Visit [facility] MEDICINE [address] [place] [address] Chun Porras MD [address] [place] [address] 09/22/2024 11:00 AM EDT Office Visit [address] [address] 09/22/2024 1:00 PM EDT Telemedicine [address] [address] Chun Porras MD [address] [place] [address] documented as of this encounter Goals Goal [...] documented as of this encounter Care Teams Family Protection Specialist Relationship Specialty Start Date End Date Chun Porras MD [address] [place] [address] PCP - General Internal Medicine 05/26/14 Lynsey [place], Sherwin [address] [place] [address] Pharmacist Internal Medicine 09/26/23 documented as of this encounter
--- OUTSIDE RECORDS SUMMARY | 2024-09-08 15:47 | XMS_ITS | Encounter Summary ---
Author Organization [employer] Address [address] [facility] [address] [place] [address] Care Team Providers Care Egg Gatherer Name Role Phone Chun Porras MD Primary Care Provide r Lynsey Madison PharmD Unavailable [phone] Encounter Details Date Type Department Care Team ([facility] Contact Info) Description 08/18/2024 Telephone [facility] [address] [place], [place] [phone] Maritza Mejia, RN [address] [place] [address] Social History Tobacco Use Types Packs/Day Years [...] encounter Miscellaneous Notes * Telephone Encounter - Maritza Mejia RN - 08/18/2024 3:54 PM EST .What SEISMIC PROSPECTING OBSERVER HELPER Tier would you like this patient to be? Tier 1 = HIGH RISK, Monthly SEISMIC PROSPECTING OBSERVER HELPER visits Tier 2 = MODerate RISK, Q3 Month visits Tier 3 = LOW RISK = Q4-6 month visits documented in this encounter Plan of Treatment Upcoming Encounters Date Type Department Care Team (Late st Contact Info) Description 09/10/2024 11:30 AM EST Office Visit [facility] [address] [place] [address] Chun Porras MD [address] [place] [address] 09/22/2024 11:00 AM EDT Office Visit [address] [address] 09/22/2024 1:00 PM EDT Telemedicine [address] [address] Chun Porras MD [address] [place] [address] documented as of this encounter Goals Goal [...] documented as of this encounter Care Teams Egg Gatherer Relationship Specialty Start Date End Date Chun Porras MD [address] [place] [address] PCP - General Internal Medicine 05/26/14 Lynsey Madison, MichaelD [address] [place] [address] Pharmacist Internal Medicine 09/26/23 documented as of this encounter
--- OUTSIDE RECORDS SUMMARY | 2024-09-08 15:47 | XMS_ITS | Encounter Summary ---
Author Organization [employer] Address [address] [facility] [address] [place] [address] Care Team Providers Care Supervisor Prepress Name Role Phone Chun Porras MD Primary Care Provide r Lynsey Madison PharmD Unavailable [phone] Reason for Visit * Reason Comments Pre-visit Planning SDOH Screening posit yamilka and Tobacco screening negative Encounter Details Date Type Department Care Team (Late st Contact Info) Description 08/28/2024 Patient Outreach [facility] [address] [place] [address] Chun Porras MD [address] [place] [address] Pre-visit Planning (SDOH Screening positive and Tobacco screening negative) Social History Tobacco Use Types Packs/Day Years [...] as of this encounter Progress Notes * Rut Fajardo - 08/28/2024 9:51 AM EST YVETTE Dorsey placed successful outbound call to patient for pre-visit planning. Patient name and confirmed. Patient confirms appt date and time, and has transportation arrangements. Biggest concern for appointment at this time is requesting sleeping medications. Patient advised to bring to appointment a photo id and insurance card. Appropriate screenings completed in anticipation of appointment. SDOH positive. Patient looking for assistance with pest control: Cockroaches. Referral will be placed. documented in this encounter Plan of Treatment Upcoming Encounters Date Type Department Care Team ([facility] st Contact Info) Description 09/10/2024 11:30 AM EST Office Visit [facility] [address] [place] [address] [place] [address] 09/22/2024 11:00 AM EDT Office Visit [facility] [place] [address] 09/22/2024 1:00 PM EDT Telemedicine [facility] [place] [address] [place] [address] documented as of this encounter Goals Goal [...] as of this encounter Care Teams Supervisor Prepress Relationship Specialty Start Date End [place] [address] PCP - General Internal Medicine 05/26/14 Lynsey Madison, [place] [address] Pharmacist Internal Medicine 09/26/23 documented as of this encounter
--- OUTSIDE RECORDS SUMMARY | 2024-09-08 15:47 | XMS_ITS | Encounter Summary ---
Author Organization [employer] Address [address] [facility] [address] [place] [address] Care Team Providers Care Tape Deck Installer Name Role Phone Chun Porras MD Primary Care Provide r Lynsey Madison PharmD Unavailable [phone] Reason for Visit * Reason Comments Rash Face Encounter Details Date Type Department Care Team (Latest Contact Info) Description 08/13/2024 3:20 PM EST Office Visit [facility] [address] [place] [address] Gastroesophageal reflux disease without esophagitis (Primary Dx); Itching Social History Tobacco Use Types Packs/Day Years [...] AM EDT documented as of this encounter Last Filed Vital Signs Vital Sign Reading Time Taken Comments Blood Pressure 136/84 08/13/2024 3:06 PM EST Pulse 74 08/13/2024 3:06 PM EST Temperature 36.7 ??C (98.1 ??F) 08/13/2024 3:06 PM ES T Respiratory Rate 16 08/13/2024 3:06 PM EST Oxygen Saturation 98% 08/13/2024 3:06 PM EST Inhaled Oxygen Concentration - - Weight 78.9 kg (174 lb) 08/13/2024 3:06 PM EST Height - - Body Mass Index 24.97 06/24/2024 5:58 PM EST documented in this encounter Plan of Treatment Upcoming Encounters Date Type Department Care Team (Late st Contact Info) Description 09/10/2024 11:30 AM EST Office Visit [facility] [address] [place] [address] Chun Porras MD [address] [place] [address] 09/22/2024 11:00 AM EDT Office Visit [address] [address] 09/22/2024 1:00 PM EDT Telemedicine [address] [address] Chun Porras MD [address] [place] [address] documented as of this encounter Goals Goal Patient Goal Type Associated Problems Recent Progress Patient-Stated? Author Blood Pressure < 140/90 Blood Pressure Essential hypertension 136/84(2024 3:06 PM EST) No Lynsey Madison, Sherwin documented as of this encounter Visit Diagnoses Diagnosis Gastroesophageal reflux disease without esophagitis- Primary Esophageal reflux Itching Unspecified pruritic disorder documented in this encounter Additional Health Concerns Assessment Noted Time PHQ-9 Depression Total Score: 1 11/12/19 24 11:09 AM EDT documented as of this encounter Care Teams Tape Deck Installer Relationship Specialty Start Date End Date Chun oPrras MD [address] [place] [phone] PCP - General Internal Medicine 05/26/14 Lynsey Madison, Sherwin [address] [place] [address] Pharmacist Internal Medicine 09/26/23 documented as of this encounter
--- OUTSIDE RECORDS SUMMARY | 2024-09-08 15:47 | XMS_ITS | Encounter Summary ---
Author Organization [employer] Address [address] [facility] [address] [place] [address] Care Team Providers Care Garage Worker Name Role Phone Chun Porras MD Primary Care Provide r Lynsey Madison PharmD Unavailable [phone] Reason for Visit * Reason Onset Date Comments Chart Prep 08/26/2024 Encounter Details Date Type Department Care Team ([facility] st Contact Info) Description 08/26/2024 Telephone [facility] [address] [place] [address] Chun Porras MD [address] [place] [address] Chart Prep Social History Tobacco Use Types Packs/Day Years [...] encounter Miscellaneous Notes * Telephone Encounter - Valorie Marcano MA - 08/26/2024 3:36 PM EST Chart Prep Labs: not applicable Images: not applicable Vaccines due: RSV in Pharmacy Due Referrals: Not Applicable Screenings: Colonoscopy Overdue care gaps: A1C, Glucose, SDOH, PHQ-9, and Oral Health Chart prep for upcoming appt with Dr.Esparza harvey. LB documented in this encounter Plan of Treatment Upcoming Encounters Date Type Department Care Team (Late st Contact Info) Description 09/10/2024 11:30 AM EST Office Visit [facility] [address] [place] [address] Chun Porras MD [address] [place] [address] 09/22/2024 11:00 AM EDT Office Visit [address] [address] 09/22/2024 1:00 PM EDT Telemedicine [address] [place] [address] Chun Porras MD [address] [place] [address] documented as of this encounter Goals Goal [...] documented as of this encounter Care Teams Garage Worker Relationship Specialty Start Date End Date Chun Porras MD [address] [place] [address] PCP - General Internal Medicine 05/26/14 Lynsey Madison, PharmD [address] [place] [address] Pharmacist Internal Medicine 09/26/23 documented as of this encounter
== END ==
LOC: HO.CARD 12:55
PROVIDERS: PCP Internal Medicine; Visit Provider Internal Medicine Cardiovascular Disease
DX: I51.7 Cardiomegaly (principal)
CPT/HCPCS: 93306

== ENCOUNTER 2024-09-08 14:00 | Emergency (ER) | payer OTHER, SELFPAY ==
--- NOTE | ~2024-09-08 | XR_ITS ---
EXAMINATION: XR CHEST CLINICAL INFORMATION: chest pain COMPARISON: None available. TECHNIQUE: 2 views of the chest were obtained. FINDINGS: Pulmonary reticular pattern. No consolidation, pleural effusion or pneumothorax. No hyperinflation. Cardiomediastinal silhouette size is normal. Old traumatic deformity/callus formation posterior lateral aspect of the ribs right mid hemithorax. Questionable 3 mm calcified pulmonary nodule right lower hemithorax. Multilevel lower thoracic spondylosis. Degenerative changes in the acromioclavicular joints. XR/XR chest 2V IMPRESSION: Chronic interstitial lung disease without acute airspace disease. Electronically signed by: Octaviano Jimenez MD 09/08/2024 02:56 PM EST RP
--- NOTE | 2024-09-08 14:02 | ECG_ITS ---
Test Reason : chest pain Blood Pressure : */* mmHG Vent. Rate : 68 BPM Atrial Rate : 68 BPM P-R Int : 160 ms QRS Dur : 106 ms QT Int : 412 ms P-R-T Axes : 56 6 27 degrees QTcB Int : 438 ms Normal sinus rhythm Normal ECG When compared with ECG of 09-Aug-2024 09:02, No significant change was found Referred By: Generic ED Physician Electronically Signed By: SORAYA RIGGS
[2024-09-08 14:21] VITALS: BP 143/67; PULSE 72; RESP 16; TEMP 36.3; O2SAT 97; BMI 24.4
--- NOTE | 2024-09-08 14:27 | ED_ITS ---
HPI - General Adult General Chief complaint: Chest Pain Stated complaint: CP Related Data Home Medications ?Medication ?Instructions ?Recorded ?Confirmed amitriptyline 100 mg tablet 1 tab PO BEDTIME 07/25/20 08/12/24 aspirin 81 mg tablet,delayed 1 tab PO QAM 07/25/20 08/12/24 release atorvastatin 40 mg tablet 1 tab PO BEDTIME 07/25/20 08/12/24 sildenafil 100 mg tablet (Viagra) 1 tab PO DAILY PRN Erectile 07/25/20 08/12/24 Dysfunction duloxetine 60 mg capsule,delayed 1 cap PO QAM 03/28/21 08/12/24 release finasteride 5 mg tablet 1 tab PO DAILY 07/08/21 08/12/24 amlodipine 10 mg tablet 1 tab PO QAM 09/08/21 08/12/24 metoprolol tartrate 50 mg tablet 1 tab PO 09/08/21 08/12/24 nebulizers 10/26/22 08/12/24 tramadol 50 mg tablet 50 mg PO TID PRN 08/16/23 08/12/24 metformin 500 mg tablet,extended 500 mg PO BID 12/24/23 08/12/24 release 24 hr blood sugar diagnostic (FreeStyle #10 ea 02/06/24 08/12/24 Lite Strips) lancets 33 gauge (TRUEplus Lancets) #100 ea 02/06/24 08/12/24 ramelteon 8 mg tablet 8 mg PO DAILY 02/21/24 08/12/24 gabapentin 300 mg capsule mg PO 05/06/24 08/12/24 Previous Rx's ?Medication ?Instructions ?Recorded ipratropium 0.5 mg-albuterol 3 mg 3 ml inhalation Q4H PRN shortness 06/28/22 (2.5 mg base)/3 mL nebulization of breath or wheezing #90 mL soln lidocaine 5 % topical patch 1 patch topical DAILY #15 ea 08/25/22 (Lidoderm) albuterol sulfate 2.5 mg/3 mL 2.5 mg (3 mL) inhalation Q4H PRN 12/04/23 (0.083 %) solution for nebulization shortness of breath or wheezing 30 days #360 mL terazosin 5 mg capsule 5 mg PO BEDTIME 90 days #90 caps 01/21/24 dicyclomine 20 mg tablet 20 mg PO QID 30 days #120 tabs 05/06/24 rabeprazole 20 mg tablet,delayed 20 mg PO BID #60 tabs 05/06/24 release (AcipHex) simethicone 180 mg capsule 180 mg PO QID 30 days #120 caps 05/06/24 albuterol sulfate 90 mcg/actuation 2 puff PO Q4-6H PRN Shortness Of 05/11/24 aerosol inhaler Breath Or Wheezing 30 days #8.5 grams bismuth subsalicylate 262 mg 2 tab PO QID 14 days #112 tabs 05/27/24 chewable tablet (Bismuth) doxycycline hyclate 100 mg tablet 100 mg PO BID 14 days #28 tabs 05/27/24 metronidazole 500 mg tablet 1,000 mg (2 x 500 mg) PO BID 14 05/27/24 days #56 tabs montelukast 10 mg tablet 10 mg PO BEDTIME #30 tabs 06/15/24 fluticasone fur. 200 mcg-umeclid 1 inh inhalation DAILY 30 days #60 08/06/24 62.5 mcg-vilant 25 mcg ea inhalat.powder (Trelegy Ellipta) Allergies Allergy/AdvReac Type Severity Reaction Status Date / Time No Known Allergies Allergy Verified 09/08/24 14:30 [No Known Allergies*] [facility] Past Medical History Medical History (Updated 09/11/24 @ 18:43 by Helena Green NP) New abnormality on chest x-ray REJI (acute kidney injury) Urgency of micturition Urinary hesitancy Nocturia more than twice per night Benign prostatic hyperplasia with weak urinary stream Epidermal inclusion cyst Atelectasis Fecal incontinence Flank lipoma Asthma-COPD overlap syndrome IBS (irritable bowel syndrome) Umbilical hernia Diabetes Arthritis Back pain GERD (gastroesophageal reflux disease) Bipolar 1 disorder Anxiety Depression Elevated cholesterol Tension pneumothorax, spontaneous Hypertension Asthma Surgical History History of esophagogastroduodenoscopy (EGD) S/P excision of lipoma (02/20/23) History of excision of mass (12/13/22) Hx of colonoscopy Hx of tracheostomy History of lung surgery Hx of hernia repair Family History Family History Mother Stomach cancer Brother Prostate cancer Brother Prostate cancer Social History Social History Household Members: None Housing: Apartment Do you presently have visiting nurse or other home services: No Alcohol intake: current Alcohol intake frequency: a few times a month Alcohol type: beer Patient Tobacco Use Status: Never used Tobacco e-Cigarette/Vaping Use: Never Used Second Hand Smoke Exposure: No Substance Use Type: Marijuana Advance Directives: No Advance Directives Information Provided: No Advance Directives Date on File: 03/28/21 Do you have a plan to hurt others: No Plan service: No Current occupational status: unemployed Physical Exam ED Vital Signs: BMI result Body Mass Index 24.4 Course Course Course Narrative: This is a rapid medical exam performed by Gilberto Green NP: Additional HPI, ROS, PE not included below will be deferred to primary provider. Patient is a 64-year-old male with history of GERD, BPH, IBS, asthma-COPD overlap syndrome, JACQUI, erosive gastritis, Merlos's esophagus, H. pylori duodenitis presenting with complaint of chest pain since yesterday. Some shortness of breath. Denies nausea/vomiting. Plan: EKG, labs Medical Decision Making Lab Data 09/08/24 14:45 09/08/24 14:45 Labs: Lab Results 09/08/24 Range/Units 14:45 WBC 8.5 (4.8-10.8) X10*3/uL RBC 4.86 (4.60-5.80) X10*6/uL Hgb 14.3 (14.0-18.0) g/dl Hct 41.8 L (42.0-52.0) % MCV 86.0 (80.0-98.0) fL MCH 29.4 (27.0-33.0) pg MCHC 34.2 (31.0-36.0) g/dl RDW 12.7 (11.0-16.0) % Plt Count 222 (160-400) X10*3/uL MPV 9.7 (9.4-12.4) fL Immature Gran % (Auto) 0.1 (0.0-0.4) % Neut % (Auto) 64.9 (45-73) % Lymph % (Auto) 18.8 L (20-40) % [place] % (Auto) 10.6 (2-11) % Eos % (Auto) 4.9 H (0-4) % Baso % (Auto) 0.7 (0-2) % Lymph # (Auto) 1.6 (1.2-4.9) X10*3/uL [place] # (Auto) 0.9 (0.1-1.2) X10*3/uL Eos # (Auto) 0.4 (0.0-0.4) X10*3/uL Baso # (Auto) 0.1 (0.0-0.2) X10*3/uL Abs Immat Gran (auto) 0.01 (0.00-0.03) X10*3/uL Absolute Neuts (auto) 5.5 (2.0-8.3) x10*3/uL Absolute Nucleated RBC 0.000 (0.0-0.012) X10*3/uL Nucleated RBC % (auto) 0.0 (0.0-0.2) /100WBC PT 10.8 L (10.9-12.4) SEC INR 0.9 (0.9-1.1) Sodium 139 (135-145) mmol/L Potassium 4.1 (3.3-5.1) mmol/L Chloride 109 H (96-108) mmol/L Carbon Dioxide 22 (22-29) mmol/L Anion Gap 12 (12-20) BUN 19 H (9-16) mg/dL Creatinine 0.79 (0.5-1.4) mg/dL Estim Creat Clear Calc 94.9 Estimated GFR > 60 Random Glucose 123 H (60-115) mg/dL Calcium 9.3 (8.4-10.2) mg/dL Total Bilirubin 0.3 (0.0-1.0) mg/dL AST 27 (5-37) U/L ALT 30 (0-40) U/L Alkaline Phosphatase 90 (39-117) U/L Troponin I High Sens < 2.7 (<3.5-35.0) ng/L Total Protein 7.6 (6.5-8.0) g/dL Albumin 4.2 (3.5-5.0) g/dL Discharge Plan Discharge Clinical Impression: Chest pain Patient Disposition: Left W/O Completing Treatment Prescriptions: No Action albuterol sulfate 2.5 mg /3 mL (0.083 %) solution for nebulization 2.5 mg inhalation Q4H PRN (Reason: shortness of breath or wheezing) 30 Days Qty: 360 7RF albuterol sulfate 90 mcg/actuation HFA aerosol inhaler 2 puff PO Q4-6H PRN (Reason: Shortness Of Breath Or Wheezing) 30 Days Qty: 8.5 2RF bismuth subsalicylate [Bismuth] 262 mg tablet,chewable 2 tab PO QID 14 Days Qty: 112 0RF doxycycline hyclate 100 mg tablet 100 mg PO BID 14 Days Qty: 28 0RF metronidazole 500 mg tablet 1,000 mg PO BID 14 Days Qty: 56 0RF montelukast 10 mg tablet 10 mg PO BEDTIME Qty: 30 4RF Trelegy Ellipta 200-62.5-25 mcg blister with device 1 inh inhalation DAILY 30 Days Qty: 60 7RF atorvastatin 40 mg tablet 1 tab PO BEDTIME aspirin 81 mg tablet,delayed release (DR/EC) 1 tab PO QAM sildenafil [Viagra] 100 mg tablet 1 tab PO DAILY PRN (Reason: Erectile Dysfunction) amitriptyline 100 mg tablet 1 tab PO BEDTIME duloxetine 60 mg capsule,delayed release(DR/EC) 1 cap PO QAM finasteride 5 mg tablet 1 tab PO DAILY amlodipine 10 mg tablet 1 tab PO QAM metoprolol tartrate 50 mg tablet 1 tab PO ipratropium-albuterol 0.5 mg-3 mg(2.5 mg base)/3 mL solution for nebulization 3 ml inhalation Q4H PRN (Reason: shortness of breath or wheezing) Qty: 90 0RF Rx Instructions: until breathing returns to target peak flow/parameters lidocaine [Lidoderm] 5 % adhesive patch,medicated 1 patch topical DAILY Qty: 15 0RF Rx Instructions: leave on most painful area for up to 12 hrs (DME) nebulizers Misc See Rx Instructions .Route Rx Instructions: As directed metformin 500 mg tablet extended release 24 hr 500 mg PO BID Rx Instructions: 1000 mg in the morning and 500 mg at night ramelteon 8 mg tablet 8 mg PO DAILY gabapentin 300 mg capsule PO dicyclomine 20 mg tablet 20 mg PO QID 30 Days Qty: 120 6RF simethicone 180 mg capsule 180 mg PO QID 30 Days Qty: 120 6RF Rx Instructions: after meals rabeprazole [AcipHex] 20 mg tablet,delayed release (DR/EC) 20 mg PO BID Qty: 60 6RF terazosin 5 mg capsule 5 mg PO BEDTIME 90 Days Qty: 90 3RF tramadol 50 mg tablet 50 mg PO TID PRN (DME) FreeStyle Lite Strips Strip See Rx Instructions .ROUTE BID Qty: 10 Rx Instructions: As directed (DME) lancets [TRUEplus Lancets] 33 gauge misc See Rx Instructions .ROUTE .MEDSUPPLY Qty: 100 Rx Instructions: As directed Discharge Date/Time: 09/08/24 18:34
[2024-09-08 14:53] LABS: MANUAL DIFF FLAG NO
[2024-09-08 14:55] LABS: Basophils Absolute Auto 0.1 X10*3/uL (0.0-0.2); Basophils Percent Auto 0.7 % (0-2); Eosinophils Absolute Auto 0.4 X10*3/uL (0.0-0.4); Eosinophils Percent Auto 4.9 % (0-4); Hematocrit 41.8 % (42.0-52.0); Hemoglobin 14.3 g/dl (14.0-18.0); Imm Gran Abs Auto 0.01 X10*3/uL (0.00-0.03); Imm Gran Pct Auto 0.1 % (0.0-0.4); Lymphocytes Absolute Auto 1.6 X10*3/uL (1.2-4.9); Lymphocytes Percent Auto 18.8 % (20-40); Mean Corpuscular HGB Conc 34.2 g/dl (31.0-36.0); Mean Corpuscular Hemoglobin 29.4 pg (27.0-33.0); Mean Platelet Volume 9.7 fL (9.4-12.4); Monocytes Absolute Auto 0.9 X10*3/uL (0.1-1.2); Monocytes Percent Auto 10.6 % (2-11); Neutrophils Absolute Auto 5.5 x10*3/uL (2.0-8.3); Neutrophils Percent Auto 64.9 % (45-73); Platelet Count 222 X10*3/uL (160-400); Red Blood Count 4.86 X10*6/uL (4.60-5.80); Red Cell Distribution Width 12.7 % (11.0-16.0); White Blood Count 8.5 X10*3/uL (4.8-10.8)
[2024-09-08 14:59] LABS: INTERNATIONAL NORM RATIO 0.9 (0.9-1.1); Prothrombin Time 10.8 SEC (10.9-12.4)
[2024-09-08 15:12] LABS: Alanine Aminotransferase 30 U/L (0-40); Albumin Level 4.2 g/dL (3.5-5.0); Alkaline Phosphatase 90 U/L (39-117); Anion Gap 12 (12-20); Aspartate Amino Transferase 27 U/L (5-37); Bilirubin Total 0.3 mg/dL (0.0-1.0); Blood Urea Nitrogen 19 mg/dL (9-16); Calcium 9.3 mg/dL (8.4-10.2); Carbon Dioxide 22 mmol/L (22-29); Chloride 109 mmol/L (96-108); Creatinine Clr Calc Pharmacy 94.9; Estimated Glomerular Filt Rate > 60; Glucose Random 123 mg/dL (60-115); Potassium 4.1 mmol/L (3.3-5.1); Sodium 139 mmol/L (135-145); Total Protein 7.6 g/dL (6.5-8.0)
[2024-09-08 15:20] LABS: Troponin-I High Sensitivity < 2.7 ng/L (<3.5-35.0)
--- OUTSIDE RECORDS SUMMARY | 2024-09-08 20:00 | XMS_ITS | Encounter Summary ---
Author Organization [employer] Address [address] [facility] [address] [place] [address] Care Team Providers Care Journeyman Patternmaker Name Role Phone Chun Porras MD Primary Care Provide r Lynsey Madison PharmD Unavailable [phone] Reason for Visit * Reason Comments Med Refill Encounter Details Date Type Department Care Team ([facility] st Contact Info) Description 02/17/2024 Refill [facility] [address] [place] [address] Chun Porras MD [address] [place] [address] Chronic midline low back pain without sciatica [...] Description 09/10/2024 11:30 AM EST Office Visit [facility] [address] [place] [address] Chun Porras MD [address] [place] [address] 09/22/2024 11:00 AM EDT Office Visit [address] [address] 09/22/2024 1:00 PM EDT Telemedicine [address] [address] Chun Porras MD [address] [place] [address] documented as of this encounter Goals Goal [...] documented as of this encounter Care Teams Journeyman Patternmaker Relationship Specialty Start Date End Date Chun Porras MD [address] [place] [address] PCP - General Internal Medicine 05/26/14 Lynsey Madison PharmD [address] [place] [address] Pharmacist Internal Medicine 09/26/23 documented as of this encounter
--- OUTSIDE RECORDS SUMMARY | 2024-09-08 20:00 | XMS_ITS | Encounter Summary ---
Author Organization [employer] Address [address] [facility] [address] [place] [address] Care Team Providers Care Piercer Name Role Phone Chun Porras MD Primary Care Provide r Lynsey Madison PharmD Unavailable [phone] Reason for Visit * Reason Comments Med Refill Encounter Details Date Type Department Care Team ([facility] st Contact Info) Description 04/28/2024 Refill [facility] [address] [place] [address] Lynsey Madison, PharmD [address] [place] [address] Type 2 diabetes mellitus without complication, unspecified whether [facility]cf insulin use ([facility]) Social History Tobacco Use Types Packs/Day [...] Description 09/10/2024 11:30 AM EST Office Visit [facility]INE [address] [place] [address] Chun Porras MD [address] [place] [address] 09/22/2024 11:00 AM EDT Office Visit [facility]INE [address] [place] [address] 09/22/2024 1:00 PM EDT Telemedicine [facility] [address] [place] [address] Chun Porras MD [address] [place] [address] documented as of this encounter Goals Goal Patient Goal Type Associated Problems Recent Progress Patient-Stated? Author Blood Pressure < 140/90 Blood Pressure Essential hypertension 136/84(2024 3:06 PM EST) No Lynsey Madison, MichaelD documented as of this encounter Visit Diagnoses Diagnosis Type 2 diabetes mellitus without complication, unspecified whether terminal operator insulin use ([facility]) documented in this encounter Additional Health Concerns Assessment Noted Time PHQ-9 Depression Total Score: 1 11/12/19 11:09 AM EDT documented as of this encounter Care Teams Piercer Relationship Specialty Start Date End Date Chun Porras MD [address] [place] [address] PCP - General Internal Medicine 05/26/14 Lynsey Madison PharmD [address] [place] [address] Pharmacist Internal Medicine 09/26/23 documented as of this encounter
--- OUTSIDE RECORDS SUMMARY | 2024-09-08 20:00 | XMS_ITS | Encounter Summary ---
Author Organization [employer] Address [address] [facility] [address] [place] [address] Care Team Providers Care Spool Tender Name Role Phone Chun Porras MD Primary Care Provide r Lynsey Madison PharmD Unavailable [phone] Encounter Details Date Type Department Care Team ([facility] Contact Info) Description 11/14/2022 Abstract [facility] [address] [place] [address] Chun Porras MD [address] [place] [address] Social History Tobacco Use Types Packs/Day Years [...] Description 09/10/2024 11:30 AM EST Office Visit [facility] [place] [address] [place] [address] 09/22/2024 11:00 AM EDT Office Visit [facility] [place] [phone] 09/22/2024 1:00 PM EDT Telemedicine [facility] [place] [place] [phone] Chun Porras MD [address] [place] [phone] documented as of this encounter Procedures Procedure [...] documented as of this encounter Care Teams Spool Tender Relationship Specialty Start Date End Date Chun Porras MD [place] [phone] PCP - General Internal Medicine 05/26/14 Lynsey Madison PharmD [place] [phone] Pharmacist Internal Medicine 09/26/23 documented as of this encounter
--- OUTSIDE RECORDS SUMMARY | 2024-09-08 20:00 | XMS_ITS | Clinical Summary ---
Author Organization [email or web address] Address [address] [facility] [address] [place] [address] Care Team Providers Care Iron Worker Name Role Phone Chun Porras MD Primary Care Provide r Lynsey Madison PharmD Unavailable [phone] Allergies No known active allergies Medications Blood [...] diabetes mellitus without complication, unspecified whether termite control servicer insulin use ([facility]) TEST BLOOD SUGAR TWICE DAILY 100 [...] diabetes mellitus without complication, unspecified whether termite control servicer insulin use ([facility]) TAKE 2 TABLETS BY MOUTH ONCE [...] without complication, unspecified whether usp insulin use ([facility]) TEST BLOOD SUGAR TWICE DAILY 100 each 5 025 Active amLODIPine (Norvasc) 10 MG tabletIndications :Essential hypertension TAKE 1 TABLET BY MOUTH EVERY MORNING 90 tablet 1 Active Aspirin Low Dose 81 MG EC tabletIndications :Type 2 diabetes mellitus without complication, unspecified whether usp insulin use ([facility]) TAKE 1 TABLET BY MOUTH EVERY [...] without complication, unspecified whether usp insulin use ([facility]) TAKE 1 TABLET BY MOUTH EVERY [...] a second opinion Will refer to our [facility] Derm clinic Intermittent chest pain 03/07/2023 [...] AM EDT): Patient previously seen at our [facility] by Dr Praveen Wagoner with a concern [...] EDT): Patient previously seen here at our [facility] by Dr Praveen Wagoner with a concern [...] EDT): Patient previously seen here at our [facility] by Dr Praveen Wagoner with a concern [...] by Ирина SWENSON and was referred to Machine Burrer Dr Meyer for Pulmonary clearance. Pt was [...] (Updated 08/22/2023) - Patient transferred medications from [facility] to [facility] and was not pleased with results. [...] Eye Exam Plan: - Referral sent for [facility] Optometry - Continue with current therapy [...] L3-L4. Milder degenerative changes at remaining levels. [facility] gave him a steroid injection back [...] i\used to be under the care of [facility], last seen last 03/09/2019 Back in [...] he tells me [facility] I asked him to find out so [...] Chest tubes in the past. Admitted to [facility] from 12/18-06/2014 because of spontaneous right pneumothorax. Treated with chest tube, and had bronchoscopy with right parietal pleurectomy, multiple wedge resections of blebs of right upper and middle lobes. kellen 1 antitrypsin was normal Pt was being followed by pulmonology at [facility], he now tells me the mint wafer depositor left and they did not assign him [...] Chest tubes in the past. Admitted to [facility] from 12/18-06/2014 because of spontaneous right pneumothorax. Treated with chest tube, and had bronchoscopy with right parietal pleurectomy, multiple wedge resections of blebs of right upper and middle lobes. kellen 1 antitrypsin was normal Pt was being followed by pulmonology at [facility], he now tells me the mint wafer depositor left and they did not assign him [...] Chest tubes in the past. Admitted to [facility] from 12/18-06/2014 because of spontaneous right pneumothorax. Treated with chest tube, and had bronchoscopy with right parietal pleurectomy, multiple wedge resections of blebs of right upper and middle lobes. kellen 1 antitrypsin was normal Pt was being followed by pulmonology at [facility], he now tells me the mint wafer depositor left and they did not assign him [...] Chest tubes in the past. Admitted to [facility] from 12/18-06/2014 because of spontaneous right pneumothorax. Treated with chest tube, and had bronchoscopy with right parietal pleurectomy, multiple wedge resections of blebs of right upper and middle lobes. kellen 1 antitrypsin was normal Pt was being followed by pulmonology at [facility], he now tells me the mint wafer depositor left and they did not assign him [...] with moderate depression. Under the care of [facility]. Currently on a regimen of: Clonidine 0.1 mg po qhs Pt denies Suicidal ideation at the moment. Patient denies any suicidal ideation or thoughts, Patient has crisis numbers and knows to use them if needed. Assessment & Plan (11/20/2022 1:22 PM EDT): Pt with moderate depression. Under the care of [facility]. Currently on a regimen of: Clonidine 0.1 mg po qhs Pt denies Suicidal ideation at the moment. Patient denies any suicidal ideation or thoughts, Patient has crisis numbers and knows to use them if needed. Encounters Date Type Department Care Team Description 08/28/2024 Patient Outreach [facility] [address] [place] [phone] Chun Porras MD SDMO Concerns (VIVIAN ThomasMO ) 08/28/2024 Patient Outreach [facility] [address] [place] [address] Chun Porras MD Pre-visit Planning (SDOH Screening positive and Tobacco screening negative) 08/26/2024 Telephone [facility] [address] [place] [phone] Chun Porras MD Chart Prep 08/21/2024 10:30 AM EST Clinical Support [facility] [address] [place] [address] Maritza Mejia RN Chronic midline low back pain without sciatica 08/21/2024 Travel 08/18/2024 Telephone [facility] [address] [place] [address] Maritza Mejia RN 08/17/2024 Refill [facility] [address] [place] [address] Lynsey Madison, PharmD Mixed hyperlipidemia 08/13/2024 3:20 PM EST Office Visit [facility] [address] [place] [phone] Gastroesophageal reflux disease without esophagitis (Primary Dx); Itching 08/13/2024 Refill [facility] [address] [place] [address] Maritza Mejia RN Chronic midline low back pain without sciatica 08/13/2024 Telephone [facility] [address] [place] [address] Chun Porras MD Med Refill 08/13/2024 Refill [facility] [address] [place] [address] Chun Porras MD Essential hypertension; Type 2 diabetes mellitus without complication, unspecified whether usp insulin use ([facility]); Erectile dysfunction, unspecified erectile dysfunction type 08/09/2024 Orders Only GENERIC EXTERNAL DATA DEPARTMENT Provider, Generic External Data 07/31/2024 Refill [facility] [address] [place] [address] Simran Panda ANP Type 2 diabetes mellitus without complication, unspecified whether termite control servicer insulin use (CMS/HCC) 07/14/2024 Refill [facility] [address] [place] [address] Lynsey Madison PharmD Essential hypertension 07/13/2024 Refill [facility] [address] [place] [address] Maritza Mejia RN Chronic midline low back pain without sciatica 07/13/2024 Telephone [facility] [address] [place] [address] Chun Porras MD 06/30/2024 Telephone [facility] [address] [place] [address] Lissett Cortes MA Aug. Recall 06/24/2024 6:20 PM EST Office Visit [facility] [address] [place] [address] Buddy Gr MD Seborrheic dermatitis (Primary Dx) 06/15/2024 Refill [facility] [address] [place] [address] Chun Porras MD Chronic midline low back pain without sciatica 06/09/2024 2:00 PM EST Office Visit [facility] [address] [place] [address] Chun Porras MD Type 2 diabetes mellitus without complication, unspecified whether termite control servicer insulin use ([facility]) (Primary Dx); Essential hypertension; Encounter for immunization; Pulmonary emphysema, unspecified emphysema type ([facility]); Gastroesophageal reflux disease without esophagitis; Odynophagia; [...] the past 12 months, has t he [employer], oil or water company threatened to shut [...] 09/10/2024 11:30 AM EST Office Visit [facility] [address] [place] [address] Chun Porras MD [address] [place] [address] 09/22/2024 11:00 AM EDT Office Visit [address] [address] 09/22/2024 1:00 PM EDT Telemedicine [address] [address] Chun Porras MD [address] [place] [address] Health Maintenance Due Date Last Done Comments [...] diabetes mellitus without complication, unspecified whether termite control servicer insulin use ([facility]) POCT GLUCOSE Routine 06/09/2024 2:01 PM EST Type 2 diabetes mellitus without complication, unspecified whether usp insulin use (CMS/HCC) HEPATITIS C AB W/REFL [...] of2 resultswithin the time period is included. [facility] TROPONIN I HIGH SENSITIVITY <2.7 <3.5 - 35.0 ng/L [facility] Comment:The Wheeler high sens itivity Troponin-I results should beused in conjunction with other diagnostic information suchas ECG, clinical observations and information, and patientsymptoms to aid in the diagnosis of [place]. 09/08/2024 2:45 PM EST 09/08/2024 2:50 PM EST us Generic External Data Provider LAB BLOOD ORDERAB LES Final Result [facility] [address] [place] [phone] * (ABNORMAL) CBC auto differential (09/08/2024 2:45 PM EST) Only the most recent of2 resultswithin the time period is included. [facility] White Blood Count 8.5 4.8 - 10.8 X10*3/uL [facility] Red Blood Count 4.86 4.60 - 5.80 X10*6/uL [facility] Hemoglobin 14.3 14.0 - 18.0 g/dl [facility] Hematocrit 41.8(L) 42.0 - 52.0 % [facility] Mean Corpuscular Volume 86.0 80.0 - 98.0 fL [facility] Mean Corpuscular Hemoglobin 29.4 27.0 - 33.0 pg [facility] Mean Corpuscular HGB Conc 34.2 31.0 - 36.0 g/dl [facility] Red Cell Distribution Width 12.7 11.0 - 16.0 % [facility] Platelet Count 222 160 - 400 X10*3/uL [facility] Mean Platelet Volume 9.7 9.4 - 12.4 fL [facility] Neutrophils Percent Auto 64.9 45 - 73 % [facility] Imm Gran Pct Auto 0.1 0.0 - 0.4 % [facility] Lymphocytes Percent Auto 18.8(L) 20 - 40 % [facility] Monocytes Percent Auto 10.6 2 - 11 % [facility] Eosinophils Percent Auto 4.9(H) 0 - 4 % [facility] Basophils Percent Auto 0.7 0 - 2 % [facility] NRBC Pct Auto 0.0 0.0 - 0.2 /100WBC [facility] Neutrophils Absolute Auto 5.5 2.0 - 8.3 x10*3/uL [facility] Imm Gran Abs Auto 0.01 0.00 - 0.03 X10*3/uL [facility] Lymphocytes Absolute Auto 1.6 1.2 - 4.9 X10*3/uL [facility] Monocytes Absolute Auto 0.9 0.1 - 1.2 X10*3/uL [facility] Eosinophils Absolute Auto 0.4 0.0 - 0.4 X10*3/uL [facility] Basophils Absolute Auto 0.1 0.0 - 0.2 X10*3/uL [facility] NRBC Abs Auto 0.000 0.0 - 0.012 X10*3/uL [facility] 09/08/2024 2:45 PM EST 09/08/2024 2:50 PM EST us Generic External Data Provider LAB BLOOD ORDERAB LES Final Result [facility] [address] [place] [phone] * (ABNORMAL) Prothrombin Time-INR (09/08/2024 2:45 PM EST) Prothrombin Time 10.8(L) 10.9 - 12.4 SEC [facility] INTERNATIONAL NORM RATIO 0.9 0.9 - 1.1 [facility] Comment:INTERNATIONAL NORMAL IZED RATIO (INR) REFERENCE [...] Provider LAB BLOOD ORDERAB LES Final Result [facility] [address] [place] [address] [phone] * (ABNORMAL) Comprehensive Metabolic Panel (09/08/2024 2:45 PM EST) [facility] Sodium 139 135 - 145 mmol/L [facility] Potassium 4.1 3.3 - 5.1 mmol/L [facility] Chloride 109(H) 96 - 108 mmol/L [facility] Carbon Dioxide 22 22 - 29 mmol/L [facility] Anion Gap 12 12 - 20 [facility] Urea Nitrogen (BUN) 19(H) 9 - 16 mg/dL [facility] Creatinine, Serum 0.79 0.5 - 1.4 mg/dL [facility] Creatinine Clr Calc Pharmacy 94.9 [facility] Comment:eGFR (calculated fro m the MDRD study equation) and eCrCl(calculated from the Cockcroft-Gault equation) are based ondifferent parameters and may not yield comparable results.If eCrCl result is absurd, please check patient'sheight/weight. Estimated Glomerular Filt Rate >60 [facility] Comment:Chronic Kidney Disea se: Estimated GFR < 60 mL/min/1.95o3Uqulqf Kidney Disease: Estimated GFR < 15 mL/min/1.73m2 Glucose 123(H) 60 - 115 mg/dL [facility] Calcium 9.3 8.4 - 10.2 mg/dL [facility] Bilirubin, Total 0.3 0.0 - 1.0 mg/dL [facility] Aspartate Amino Transferase 27 5 - 37 U/L [facility] Alanine Aminotransferase 30 0 - 40 U/L [facility] Total Protein 7.6 6.5 - 8.0 g/dL [facility] Albumin Level 4.2 3.5 - 5.0 g/dL [facility] Alkaline Phosphatase 90 39 - 117 U/L [facility] 09/08/2024 2:45 PM EST 09/08/2024 2:50 PM EST us Generic External Data Provider LAB BLOOD ORDERAB LES Final Result [facility] [address] [place] [address] [phone] * XR Chest 2 Views (09/08/2024 2:29 PM EST) Anatomical Region Laterality Modality Chest Radiographic Brenna ging 09/08/2024 2:29 PM EST Narrative 09/08/2024 2:59 PM EST ? [facility] ?[address] ?[place] [address] ?XRay Report ? Signed ? Patient: Garcia Vargas,Francisco J ?MR#: M ?? [id number] ? : 1960 ?Acct:[id number] ? Age/Sex: 64 / M ?ADM Date: 02/25/25 ? Loc: HO.ED ? Attending Dr: ? Ordering Physician: Helena Green NP ?? Date of Service: 09/08/24 ?? Procedure(s): XR chest 2V ?? Accession Number(s): [id number] ? cc: Chun Michel MD; Helena Green [...] DD/ 1429 ? TD/TT: 09/08/24 1450 ? Repairer Cylinder Heads: ? Procedure Note Sagrario, Kasey - 09/08/2024 [place] [address] XRay Report Signed Patient: Johny Romeo#: M [id number] : 8Acct:[id number] Age/Sex: 64 / MADM Date: 09/08/24 Loc: HO.ED Attending Dr: Ordering Physician: Helena Green NP Date of Service: 09/08/24 Procedure(s): XR chest 2V Accession Number(s): [id number] cc: Chun Michel MD; Helena Green NP [...] 09/08/24 1456 DD/ 1429 TD/TT: 09/08/24 1450 Repairer Cylinder Heads: [facility] External Provider IMG XR PROCEDURES Final Result * CT Chest w/o Contrast (08/26/2024 10:43 AM EST) Anatomical Region Laterality Modality Body, Chest Computed Tomogra phy 08/26/2024 10:4 3 AM EST Narrative 08/26/2024 10:44 AM EST ? [facility] ?[address] ?[place] [address] ? CT Scan Report ? Signed ? Patient: Garcia Vargas,Francisco J ?MR#: M ?? [id number] ? : 1960 ?Acct:[id number] ? Age/Sex: 64 / M ?ADM Date: 08/25/24 ? Loc: HO.CT ? Attending Dr: Shane Meyer MD ? Ordering Physician: Shane Meyer MD ?? Date of Service: 08/25/24 ?? Procedure(s): CT chest wo IV con ?? Accession Number(s): [id number] ? cc: Chun Michel MD; Shane Meyer MD ? Report Number: ?? [id number]: Total DLP = ??153.00 mGy-cm ? CLINICAL [...] ? DD/ 42 ? TD/TT: 08/26/241042 ? Repairer Cylinder Heads: ? Procedure Note Sagrario, Kasey - 08/26/[address] [place] [address] [address] Scan Report Signed Patient: Johny Romeo#: M [id number] : 8Acct:[id number] Age/Sex: 64 / MADM Date: 08/25/24 Loc: HO.CT Attending Dr: Shane Meyer MD Ordering Physician: Shane Meyer MD Date of Service: 08/25/24 Procedure(s): CT chest wo IV con Accession Number(s): [id number] cc: Chun Michel MD; Shane Meyer MD Report Number: [id number]: Total DLP = 153.00 mGy-cm CLINICAL HISTORY: [...] 08/26/24 1044 DD/ 1043 TD/TT: 08/26/24 1043 Repairer Cylinder Heads: [facility] External Provider IMG CT PROCEDURES Final Result * POCT LORENA-14 Urine Drug Screen (08/21/2024 10:15 AM EST) THC Positive Urine Urine specimen obtained by clean catch procedure / Unknown 08/21/2024 10:15 AM EST Narrative Maritza Mejia RN - 08/21/2024 10:15 AM EST .[employer] cup Lot#[id number] Exp. 04/08/26 Internal Pass Control Chun Mckinley MD POINT OF CARE TEST EN TER/EDIT ORDERABLES Final Result * (ABNORMAL) Basic Metabolic Panel (08/09/2024 9:15 AM EST) Sodium 139 135 - 145 mmol/L [facility] Potassium 3.8 3.3 - 5.1 mmol/L [facility] Chloride 107 96 - 108 mmol/L [facility] Carbon Dioxide 23 22 - 29 mmol/L [facility] Anion Gap 13 12 - 20 [facility] Urea Nitrogen (BUN) 21(H) 9 - 16 mg/dL [facility] Creatinine, Serum 0.81 0.5 - 1.4 mg/dL [facility] Creatinine Clr Calc Pharmacy 92.6 [facility] Comment:eGFR (calculated fro m the MDRD study equation) and eCrCl(calculated from the Cockcroft-Gault equation) are based ondifferent parameters and may not yield comparable results.If eCrCl result is absurd, please check patient'sheight/weight. Estimated Glomerular Filt Rate >60 [facility] Comment:Chronic Kidney Disea se: Estimated GFR < 60 mL/min/1.31a5Fsmmnm Kidney Disease: Estimated GFR < 15 mL/min/1.73m2 Glucose 100 60 - 115 mg/dL [facility] Calcium 9.7 8.4 - 10.2 mg/dL [facility] 08/09/2024 9:15 AM EST 08/09/2024 9:19 AM EST us Generic External Data Provider LAB BLOOD ORDERAB LES Final Result [facility] [address] [place] [address] [phone] * POCT HGB A1C (06/09/2024 2:07 PM EST) Hemoglobin A1C 5.9 4.0 - 6.0 % QC Media Lot # [id number] Lot# Expiration Date [id number] Blood 06/09/2024 2:07 PM EST Result [facility] Chun Mckinley MD POINT OF CARE TEST [...] Hepatitis C Antibody NON-REACT FABRICIO NON-REACT FABRICIO [email or web address] Index 0.13 <1.00 [email or web address] Comment: HCV antibody was non-reactive. There is no laboratory evidence of HCV infection. In most cases, no further action is required. However, if recent HCV exposure is suspected, a test for HCV RNA (test code 61729) is suggested. For additional information please refer to http://education.eSilicon/faq/NUW17p4 (This link is being provided for informational/ educational purposes only.) Blood Venous blood specimen / Unknown 12/20/2022 10:56 AM EDT 12/20/2022 10:56 AM EDT Narrative [facility] - 12/21/2022 5:38 AM EDT FASTING:YES FASTING: YES Result [facility] us Chun Mckinley MD LAB BLOOD ORDERABLES Final Result [facility] [address], [place] [address] [employer] [address] [place] [address] * Lipid Panel, Standard (11/09/2022 11:21 AM EDT) Cholesterol, Total 138 <200 mg/dL [employer] HDL Cholesterol 54 > OR = 40 mg/dL [employer] Triglycerides 131 <150 mg/dL [employer] LDL Cholesterol 63 mg/dL (calc) [employer] Comment: Reference range: <100 Desirable range <100 mg/dL for primary prevention; ?? <70 mg/dL for patients with CHD or diabetic patients with > or = 2 CHD risk factors. LDL-C is now calculated using the Trever calculation, which is a validated novel method providing better accuracy than the Friedewald equation in the estimation of LDL-C. Manav SS et al. DIONICIO. 2013;310(19): 0840-5126 (http://education.BookingBug/faq/NMQ468) Chol/HDLC Ratio 2.6 <5.0 (calc) [employer] Non-HDL Cholesterol 84 <130 mg/dL (calc) [employer] Comment: For patients with diabetes plus 1 major ASCVD risk factor, treating to a non-HDL-C goal of <100 mg/dL (LDL-C of <70 mg/dL) is considered a therapeutic option. Blood Venous blood specimen / Unknown 11/09/2022 11:21 AM EDT 11/09/2022 11:21 AM EDT Narrative [facility] - 11/10/2022 8:06 AM EDT FASTING:NO FASTING: NO Colleen Lou [facility] LAB BLOOD ORDERABLES Final Resu lt [facility] [address], [place] [address] [employer] [address] [place] [address] * Hm Colonoscopy (07/27/2020) Colonoscopy Normal Normal 07/27/2020 Blossom Spencer - 07/27/2020 2:25 PM EST Recommended 5 year follow up ( see GI note 08/17/2020) us Historical Provider HEALTH MAINTENANCE Edited Result - Final from Last 3 Months or Most Recently Relevant to Health Maintenance Insurance [facility] Care Teams Iron Worker Relationship Specialty Start Date End Date Chun Porras MD [address] [place] [address] PCP - General Internal Medicine 05/26/14 Lynsey Madison PharmD [address] [place] [address] Pharmacist Internal Medicine 09/26/23
--- OUTSIDE RECORDS SUMMARY | 2024-09-08 20:00 | XMS_ITS | Clinical Summary ---
Author Organization [facility] Facility Address [address] [address] Care Team Providers Care Neighborhood Coordinator Name Role Phone Chun Brennan MD Primary [...] age to complete this topic Insurance [address] [place] [id number] [facility] [address] [place] [id number] [facility] [address] [place] [phone] Care Teams Neighborhood Coordinator Relationship Specialty Start Date End Date Chun Brennan MD PCP - General 07/25/20
--- OUTSIDE RECORDS SUMMARY | 2024-09-08 20:01 | XMS_ITS | Encounter Summary ---
Author Organization [employer] Address [address] [place] [address] Care Team Providers Care Shredder/Granulator Operator Name Role Phone Chun Porras MD Primary Care Provide r Lynsey Madison PharmD Unavailable [phone] Reason for Visit * Reason Comments Med Refill Encounter Details Date Type Department Care Team ([facility] st Contact Info) Description 04/21/2023 Refill [facility] [address] [place] [address] Name, MD Cristhian [address] [place] [address] Essential hypertension Social History Tobacco Use Types [...] Description 09/10/2024 11:30 AM EST Office Visit [facility] [address] [place] [phone] Chun Porras MD [address] [place] [address] 09/22/2024 11:00 AM EDT Office Visit [address] [address] 09/22/2024 1:00 PM EDT Telemedicine [address] [address] Chun Porras MD [address] [place] [phone] documented as of this encounter Visit Diagnoses Diagnosis Essential hypertension Unspecified essential hypertension documented in this encounter Additional Health Concerns Assessment Noted Time PHQ-9 Depression Total Score: 3 07/06/20 22 11:00 AM EST documented as of this encounter Care Teams Shredder/Granulator Operator Relationship Specialty Start Date End Date Chun Porras MD [address] [place] [address] PCP - General Internal Medicine 05/26/14 Lynsey Madison, MichaelD [address] [place] [phone] Pharmacist Internal Medicine 09/26/23 documented as of this encounter
--- OUTSIDE RECORDS SUMMARY | 2024-09-08 20:01 | XMS_ITS | Encounter Summary ---
Author Organization [employer] Address [address] 7[address] [place] [address] Care Team Providers Care Workers Compensation Claims Assistant Name Role Phone Chun Porras MD Primary Care Provide r Lynsey Madison PharmD Unavailable [phone] Reason for Visit * Reason Comments Pre-visit Planning SDOH Screening posit yamilka and Tobacco screening negative Encounter Details Date Type Department Care Team (Late st Contact Info) Description 08/28/2024 Patient Outreach [facility] [address] [place] [address] Chun Porras MD [address] [place] [address] Pre-visit Planning (SDOH Screening positive and Tobacco [...] Upcoming Encounters Date Type Department Care Team ([facility] st Contact Info) Description 09/10/2024 11:30 AM EST Office Visit [facility] [address] [place] [address] [place] [address] 09/22/2024 11:00 AM EDT Office Visit [facility] [place] [address] 09/22/2024 1:00 PM EDT Telemedicine [facility] [place] [address] [place] [address] documented as of this encounter Goals Goal [...] documented as of this encounter Care Teams Workers Compensation Claims Assistant Relationship Specialty Start Date End [place] [address] PCP - General Internal Medicine 05/26/14 Lynsey Madison, [place] [address] Pharmacist Internal Medicine 09/26/23 documented as of this encounter
--- OUTSIDE RECORDS SUMMARY | 2024-09-08 20:01 | XMS_ITS | Encounter Summary ---
Author Organization [employer] Address [address] 7[address] [place] [address] Care Team Providers Care Waste Disposal Attendant Name Role Phone Chun Porras MD Primary Care Provide r Lynsey Madison PharmD Unavailable [phone] Reason for Visit * Reason Comments Med Refill Encounter Details Date Type Department Care Team ([facility] st Contact Info) Description 11/14/2023 Refill [facility] [address] [place] [address] Chun Porras MD 230 [place] [address] Chronic midline low back pain without sciatica [...] Description 09/10/2024 11:30 AM EST Office Visit [facility] [address] [place] [address] Chun Porras MD [address] [place] [address] 09/22/2024 11:00 AM EDT Office Visit [address] [address] 09/22/2024 1:00 PM EDT Telemedicine [address] [address] Chun Porras MD [address] [place] [address] documented as of this encounter Goals Goal [...] documented as of this encounter Care Teams Waste Disposal Attendant Relationship Specialty Start Date End Date Brennan Elías, Chun, MD [address] [place] [address] PCP - General Internal Medicine 05/26/14 Lynsey Madison PharmD [address] [place] [address] Pharmacist Internal Medicine 09/26/23 documented as of this encounter
--- OUTSIDE RECORDS SUMMARY | 2024-09-08 20:01 | XMS_ITS | Encounter Summary ---
Author Organization [employer] Address [address] 7[address] [place] [address] Care Team Providers Care Fruit Preserver Name Role Phone Chun Porras MD Primary Care Provide r Lynsey Madison PharmD Unavailable [phone] Reason for Visit * Reason Comments controlled substance treatment Encounter Details Date Type Department Care Team (Latest Contact Info) Description 08/21/2024 10:30 AM EST Clinical Support [facility] [address] [place] [address] Maritza Mejia, SANDRA [address] [place] [address] Chronic midline low back pain without sciatica [...] the past 12 months, has t he [employer], gas, oil or water [employer] threatened to shut off services in your [...] RN - 08/21/2024 10:30 AM EST S: SUPERVISORY INVESTIGATIVE SPECIALIST [place]. Patient prescribed Tramadol 50mg PO [...] 09/10/24.No questions/ concerns at this time. O: [employer] verified today. Rx last filled on 08/13/24. Pill count performed, 64 pills left, 59 expected.Utox performed, positive for THC only; as expected. A: SUPERVISORY INVESTIGATIVE SPECIALIST Agreement RV: Chronic Opioid use related to pain. P: Pt to continue taking medication only as prescribed; chronic pain group/ SUPERVISORY INVESTIGATIVE SPECIALIST visit scheduled for09/22/24 @ 11am. F/u with PCP 09/10/24. Reminder slip given. F/U sooner PRN. Pt verbalized understanding and agreed to plan. documented in this encounter Plan of Treatment Upcoming Encounters Date Type Department Care Team (Late st Contact Info) Description 09/10/2024 11:30 AM EST Office Visit [facility] [address] [facility] [place] [address] Chun Porras MD [address] [facility] [place], [place] [phone] 09/22/2024 11:00 AM EDT Office Visit [facility] [address] [facility] [place] [phone] 09/22/2024 1:00 PM EDT Telemedicine [facility] [address] [facility] [place], [place] [phone] Chun Porras MD [address] [facility] [place] [phone] documented as of this encounter Goals Goal [...] - 08/21/2024 10:15 AM EST .UTOX cup Lot#[id number] Exp. 04/08/26 Internal Pass Control Chun Mckinley MD POINT OF CARE TEST EN TER/EDIT ORDERABLES Final Result documented in this encounter Visit Diagnoses Diagnosis Chronic midline low back pain without sciatica documented in this encounter Additional Health Concerns Assessment Noted Time PHQ-9 Depression Total Score: 1 11/12/19 24 11:09 AM EDT documented as of this encounter Care Teams Fruit Preserver Relationship Specialty Start Date End Date Chun Porras MD [address] [place] [address] PCP - General Internal Medicine 05/26/14 Lynsey Madison PharmD [address] [place] [address] Pharmacist Internal Medicine 09/26/23 documented as of this encounter
--- OUTSIDE RECORDS SUMMARY | 2024-09-08 20:01 | XMS_ITS | Encounter Summary ---
Author Organization [employer] Address [address] 7[address] [place] [address] Care Team Providers Care Director [employer]eron[employer] Name Role Phone Chun Porras MD Primary Care Provide r Lynsey Madison PharmD Unavailable [phone] Encounter Details Date Type Department Care Team [...] Description 09/10/2024 11:30 AM EST Office Visit [address] [address] Chun Porras MD [address] [place] [address] 09/22/2024 11:00 AM EDT Office Visit [address] [address] 09/22/2024 1:00 PM EDT Telemedicine [address] [address] Chun Porras MD [address] [place] [address] documented as of this encounter Goals Goal [...] Sensitivity Troponin I (09/08/2024 2:45 PM EST) [facility] TROPONIN I HIGH SENSITIVITY <2.7 <3.5 - 35.0 ng/L [facility] Comment:The Wheeler high sens itivity Troponin-I results should beused in conjunction with other diagnostic information suchas ECG, clinical observations and information, and patientsymptoms to aid in the diagnosis of [place]. 09/08/2024 2:45 PM EST 09/08/2024 2:50 PM EST us Generic External Data Provider LAB BLOOD ORDERAB LES Final Result [facility] [address] [place] [phone] * (ABNORMAL) Comprehensive Metabolic Panel (09/08/2024 2:45 PM EST) [facility] Sodium 139 135 - 145 mmol/L [facility] Potassium 4.1 3.3 - 5.1 mmol/L [facility] Chloride 109(H) 96 - 108 mmol/L [facility] Carbon Dioxide 22 22 - 29 mmol/L [facility] Anion Gap 12 12 - 20 [facility] Urea Nitrogen (BUN) 19(H) 9 - 16 mg/dL [facility] Creatinine, Serum 0.79 0.5 - 1.4 mg/dL [facility] Creatinine Clr Calc Pharmacy 94.9 [facility] Comment:eGFR (calculated fro m the MDRD study equation) and eCrCl(calculated from the Cockcroft-Gault equation) are based ondifferent parameters and may not yield comparable results.If eCrCl result is absurd, please check patient'sheight/weight. Estimated Glomerular Filt Rate >60 [facility] Comment:Chronic Kidney Disea se: Estimated GFR < 60 mL/min/1.06e9Prtxng Kidney Disease: Estimated GFR < 15 mL/min/1.73m2 Glucose 123(H) 60 - 115 mg/dL [facility] Calcium 9.3 8.4 - 10.2 mg/dL [facility] Bilirubin, Total 0.3 0.0 - 1.0 mg/dL [facility] Aspartate Amino Transferase 27 5 - 37 U/L [facility] Alanine Aminotransferase 30 0 - 40 U/L [facility] Total Protein 7.6 6.5 - 8.0 g/dL [facility] Albumin Level 4.2 3.5 - 5.0 g/dL [facility] Alkaline Phosphatase 90 39 - 117 U/L [facility] 09/08/2024 2:45 PM EST 09/08/2024 2:50 PM EST us Generic External Data Provider LAB BLOOD ORDERAB LES Final Result [facility] [address] [place] [address] [phone] * (ABNORMAL) Prothrombin Time-INR (09/08/2024 2:45 PM EST) Prothrombin Time 10.8(L) 10.9 - 12.4 SEC [facility] INTERNATIONAL NORM RATIO 0.9 0.9 - 1.1 [facility] Comment:INTERNATIONAL NORMAL IZED RATIO (INR) REFERENCE [...] Provider LAB BLOOD ORDERAB LES Final Result [facility] [address] [place] [phone] * (ABNORMAL) CBC auto differential (09/08/2024 2:45 PM EST) White Blood Count 8.5 4.8 - 10.8 X10*3/uL [facility] Red Blood Count 4.86 4.60 - 5.80 X10*6/uL [facility] Hemoglobin 14.3 14.0 - 18.0 g/dl [facility] Hematocrit 41.8(L) 42.0 - 52.0 % [facility] Mean Corpuscular Volume 86.0 80.0 - 98.0 fL [facility] Mean Corpuscular Hemoglobin 29.4 27.0 - 33.0 pg [facility] Mean Corpuscular HGB Conc 34.2 31.0 - 36.0 g/dl [facility] Red Cell Distribution Width 12.7 11.0 - 16.0 % [facility] Platelet Count 222 160 - 400 X10*3/uL [facility] Mean Platelet Volume 9.7 9.4 - 12.4 fL [facility] Neutrophils Percent Auto 64.9 45 - 73 % [facility] Imm Gran Pct Auto 0.1 0.0 - 0.4 % [facility] Lymphocytes Percent Auto 18.8(L) 20 - 40 % [facility] Monocytes Percent Auto 10.6 2 - 11 % [facility] Eosinophils Percent Auto 4.9(H) 0 - 4 % [facility] Basophils Percent Auto 0.7 0 - 2 % [facility] NRBC Pct Auto 0.0 0.0 - 0.2 /100WBC [facility] Neutrophils Absolute Auto 5.5 2.0 - 8.3 x10*3/uL [facility] Imm Gran Abs Auto 0.01 0.00 - 0.03 X10*3/uL [facility] Lymphocytes Absolute Auto 1.6 1.2 - 4.9 X10*3/uL [facility] Monocytes Absolute Auto 0.9 0.1 - 1.2 X10*3/uL [facility] Eosinophils Absolute Auto 0.4 0.0 - 0.4 X10*3/uL [facility] Basophils Absolute Auto 0.1 0.0 - 0.2 X10*3/uL [facility] NRBC Abs Auto 0.000 0.0 - 0.012 X10*3/uL [facility] 09/08/2024 2:45 PM EST 09/08/2024 2:50 PM EST us Generic External Data Provider LAB BLOOD ORDERAB LES Final Result Performing Organization Address [facility]/State/[facility] Co de Phone Number [facility] [address] [place] [phone] * XR Chest 2 Views (09/08/2024 2:29 PM EST) Anatomical Region Laterality Modality Chest Radiographic Brenna ging 09/08/2024 2:29 PM EST Narrative 09/08/2024 2:59 PM EST ? [facility] ?[address] ?[place] [address] ?XRay Report ? Signed ? Patient: Garcia Vargas,Francisco J ?MR#: M ?? [id number] ? : 1960 ?Acct:[id number] ? Age/Sex: 64 / M ?ADM Date: 02/25/25 ? Loc: HO.ED ? Attending Dr: ? Ordering Physician: Helena Green NP ?? Date of Service: 09/08/24 ?? Procedure(s): XR chest 2V ?? Accession Number(s): [id number] ? cc: Chun Michel MD; Helena Green [...] DD/ 1429 ? TD/TT: 09/08/24 1450 ? Pathology Transcriptionist: ? Procedure Note Sagrario, Image - 09/08/[address] [address] XRay Report Signed Patient: Johny Romeo#: M [id number] : 8Acct:[id number] Age/Sex: 64 / MADM Date: 09/08/24 Loc: HO.ED Attending Dr: Ordering Physician: Helena Green NP Date of Service: 09/08/24 Procedure(s): XR chest 2V Accession Number(s): [id number] cc: Chun Michel MD; Peter,Helena OCCUPATIONAL THERAPY DEPARTMENT CHAIR EXAMINATION: XR CHEST CLINICAL INFORMATION: chest pain [...] 09/08/24 1456 DD/ 1429 TD/TT: 09/08/24 1450 Pathology Transcriptionist: [facility] External Provider IMG XR PROCEDURES Final Result * CT Chest w/o Contrast (08/26/2024 10:43 AM EST) Anatomical Region Laterality Modality Body, Chest Computed Tomogra phy 08/26/2024 10:4 3 AM EST Narrative 08/26/2024 10:44 AM EST ? [facility] ?[address] ?[place] [address] ? CT Scan Report ? Signed ? Patient: Radha Amina,Francisco J ?MR#: M ?? [id number] ? : 1960 ?Acct:[id number] ? Age/Sex: 64 / M ?ADM Date: //25 ? Loc: HO.CT ? Attending Dr: Shane Meyer MD ? Ordering Physician: Shane Meyer MD ?? Date of Service: 08/25/24 ?? Procedure(s): CT chest wo IV con ?? Accession Number(s): [id number] ? cc: Chun Michel MD; Shane Meyer MD ? Report Number: ?? [id number]: Total DLP = ??153.00 mGy-cm ? CLINICAL [...] DD/ 1043 ? TD/TT: 08/26/24 1043 ? Pathology Transcriptionist: ? Procedure Note Sagrario, Image - 08/26/[address] [address] [address] Scan Report Signed Patient: Johny Romeo#: M [id number] : 8Acct:[id number] Age/Sex: 64 / MADM Date: 08/25/24 Loc: HO.CT Attending Dr: Shane Meyer MD Ordering Physician: Shane Meyer MD Date of Service: 08/25/24 Procedure(s): CT chest wo IV con Accession Number(s): [id number] cc: Chun Michel MD; Shane Meyer MD Report Number: [id number]: Total DLP = 153.00 mGy-cm CLINICAL HISTORY: [...] 08/26/24 1044 DD/ 1043 TD/TT: 08/26/24 1043 Pathology Transcriptionist: [facility] External Provider IMG CT PROCEDURES Final Result * High Sensitivity Troponin I (08/09/2024 9:15 AM EST) TROPONIN I HIGH SENSITIVITY <2.7 <3.5 - 35.0 ng/L [facility] Comment:The Wheeler high sens itivity Troponin-I results should beused in conjunction with other diagnostic information suchas ECG, clinical observations and information, and patientsymptoms to aid in the diagnosis of [place]. 08/09/2024 9:15 AM EST 08/09/2024 9:19 AM EST us Generic External Data Provider LAB BLOOD ORDERAB LES Final Result Performing Organization Address City/[facility]/ZIP Co de Phone Number [facility] [address] [place] [phone] * (ABNORMAL) Basic Metabolic Panel (08/09/2024 9:15 AM EST) Sodium 139 135 - 145 mmol/L [facility] Potassium 3.8 3.3 - 5.1 mmol/L [facility] Chloride 107 96 - 108 mmol/L [facility] Carbon Dioxide 23 22 - 29 mmol/L [facility] Anion Gap 13 12 - 20 [facility] Urea Nitrogen (BUN) 21(H) 9 - 16 mg/dL [facility] Creatinine, Serum 0.81 0.5 - 1.4 mg/dL [facility] Creatinine Clr Calc Pharmacy 92.6 [facility] Comment:eGFR (calculated fro m the MDRD study equation) and eCrCl(calculated from the Cockcroft-Gault equation) are based ondifferent parameters and may not yield comparable results.If eCrCl result is absurd, please check patient'sheight/weight. Estimated Glomerular Filt Rate >60 [facility] Comment:Chronic Kidney Disea se: Estimated GFR < 60 mL/min/1.75x8Rbkzak Kidney Disease: Estimated GFR < 15 mL/min/1.73m2 Glucose 100 60 - 115 mg/dL [facility] Calcium 9.7 8.4 - 10.2 mg/dL [facility] 08/09/2024 9:1 5 AM EST 08/09/2024 9:19 AM EST us Generic External Data Provider LAB BLOOD ORDERAB LES Final Result Performing Organization Address City/[facility]/ZIP Co de Phone Number [facility] [address] [place] [phone] * (ABNORMAL) CBC auto differential (08/09/2024 9:15 AM EST) White Blood Count 8.6 4.8 - 10.8 X10*3/uL [facility] Red Blood Count 4.95 4.60 - 5.80 X10*6/uL [facility] Hemoglobin 14.6 14.0 - 18.0 g/dl [facility] Hematocrit 42.6 42.0 - 52.0 % [facility] Mean Corpuscular Volume 86.1 80.0 - 98.0 fL [facility] Mean Corpuscular Hemoglobin 29.5 27.0 - 33.0 pg [facility] Mean Corpuscular HGB Conc 34.3 31.0 - 36.0 g/dl [facility] Red Cell Distribution Width 12.5 11.0 - 16.0 % [facility] Platelet Count 277 160 - 400 X10*3/uL [facility] Mean Platelet Volume 9.5 9.4 - 12.4 fL [facility] Neutrophils Percent Auto 48.6 45 - 73 % [facility] Imm Gran Pct Auto 0.2 0.0 - 0.4 % [facility] Lymphocytes Percent Auto 31.2 20 - 40 % [facility] Monocytes Percent Auto 13.5(H) 2 - 11 % [facility] Eosinophils Percent Auto 5.8(H) 0 - 4 % [facility] Basophils Percent Auto 0.7 0 - 2 % [facility] NRBC Pct Auto 0.0 0.0 - 0.2 /100WBC [facility] Neutrophils Absolute Auto 4.2 2.0 - 8.3 x10*3/uL [facility] Imm Gran Abs Auto 0.02 0.00 - 0.03 X10*3/uL [facility] Lymphocytes Absolute Auto 2.7 1.2 - 4.9 X10*3/uL [facility] Monocytes Absolute Auto 1.2 0.1 - 1.2 X10*3/uL [facility] Eosinophils Absolute Auto 0.5(H) 0.0 - 0.4 X10*3/uL [facility] Basophils Absolute Auto 0.1 0.0 - 0.2 X10*3/uL [facility] NRBC Abs Auto 0.000 0.0 - 0.012 X10*3/uL [facility] 08/09/2024 9:15 AM EST 08/09/2024 9:19 AM EST us Generic External Data Provider LAB BLOOD ORDERAB LES Final Result [facility] [address] [place] [phone] documented in this encounter Visit Diagnoses Not on filedocumented in this encounter Additional Health Concerns Assessment Noted Time PHQ-9 Depression Total Score: 1 11/12/19 24 11:09 AM EDT documented as of this encounter Care Teams Director [employer] Relationship Specialty Start Date End Date Chun Porras MD [address] [place] [address] PCP - General Internal Medicine 05/26/14 Lynsey Madison PharmD [address] [place] [address] Pharmacist Internal Medicine 09/26/23 documented as of this encounter
--- OUTSIDE RECORDS SUMMARY | 2024-09-08 20:01 | XMS_ITS | Encounter Summary ---
Author Organization [employer] Address [address] [place] [address] Care Team Providers Care Line Erector Name Role Phone Chun Porras MD Primary Care Provide r Lynsey Madison PharmD Unavailable [phone] Reason for Visit * Reason Comments Med Refill Encounter Details Date Type Department Care Team ([facility] st Contact Info) Description 04/23/2023 Refill [facility] [address] [place] [address] Chun Porras MD [address] [place] [address] Benign prostatic hyperplasia with lower urinary tract [...] 09/10/2024 11:30 AM EST Office Visit [facility] [address] [place] [address] Chun Porras MD [address] [place] [address] 09/22/2024 11:00 AM EDT Office Visit [address] [address] 09/22/2024 1:00 PM EDT Telemedicine [address] [address] Chun Porras MD [address] [place] [address] documented as of this encounter Visit Diagnoses Diagnosis Benign prostatic hyperplasia with lower urinary tract symptoms documented in this encounter Additional Health Concerns Assessment Noted Time PHQ-9 Depression Total Score: 3 07/06/20 22 11:00 AM EST documented as of this encounter Care Teams Line Erector Relationship Specialty Start Date End Date Chun Porras MD [address] [place] [phone] PCP - General Internal Medicine 05/26/14 Lynsey Madison, MichaelD [address] [place] [phone] Pharmacist Internal Medicine 09/26/23 documented as of this encounter
--- OUTSIDE RECORDS SUMMARY | 2024-09-08 20:01 | XMS_ITS | Encounter Summary ---
Author Organization [employer] Address [address] [place] [address] Care Team Providers Care Ore Dressing Engineer Name Role Phone Chun Porras MD Primary Care Provide r Lynsey Madison PharmD Unavailable [phone] Reason for Visit * Reason Comments Med Refill Encounter Details Date Type Department Care Team ([facility] st Contact Info) Description 09/29/2023 Refill [facility] [address] [place] [address] Chun Porras MD [address] [place] [address] Type 2 diabetes mellitus without complication, unspecified whether correction insulin use ([facility]) Social History Tobacco Use Types [...] Description 09/10/2024 11:30 AM EST Office Visit [address] [address] Chun Porras MD [address] [place] [address] 09/22/2024 11:00 AM EDT Office Visit [address] [address] 09/22/2024 1:00 PM EDT Telemedicine [address] [address] Chun Porras MD [address] [place] [address] documented as of this encounter Goals Goal Patient Goal Type Associated Problems Recent Progress Patient-Stated? Author Blood Pressure < 140/90 Blood Pressure Essential hypertension 136/84(2024 3:06 PM EST) No Lynsey Madison, Sherwin documented as of this encounter Visit Diagnoses Diagnosis Type 2 diabetes mellitus without complication, unspecified whether terminal block assembler insulin use ([facility]) documented in this encounter Additional Health Concerns Assessment Noted Time PHQ-9 Depression Total Score: 3 07/06/20 22 11:00 AM EST documented as of this encounter Care Teams Ore Dressing Engineer Relationship Specialty Start Date End Date Chun Porras MD [address] [place] [address] PCP - General Internal Medicine 05/26/14 Lynsey Madison, MichaelD [address] [place] [address] Pharmacist Internal Medicine 09/26/23 documented as of this encounter
--- OUTSIDE RECORDS SUMMARY | 2024-09-08 20:01 | XMS_ITS | Encounter Summary ---
Author Organization [employer] Address [address] [facility] [address] 7t [place] [address] Care Team Providers Care Layup Worker Name Role Phone Chun Porras MD Primary Care Provide r Lynsey Madison PharmD Unavailable [phone] Reason for Visit * Reason Comments Med Refill Encounter Details Date Type Department Care Team ([facility] st Contact Info) Description 07/04/2023 Refill [facility] 230 [place] [address] Chun Porras MD 230 [place] [address] Type 2 diabetes mellitus without complication, unspecified whether residential insulin use ([facility]) Social History Tobacco Use Types [...] EST Office Visit [facility] [address] [place] [address] Chun Porras MD [address] [place] [address] 09/22/2024 11:00 AM EDT Office Visit [address] [address] 09/22/2024 1:00 PM EDT Telemedicine [address] [address] Chun Porras MD [address] [place] [address] documented as of this encounter Visit Diagnoses Diagnosis Type 2 diabetes mellitus without complication, unspecified whether salvage determiner insulin use ([facility]) documented in this encounter Additional Health Concerns Assessment Noted Time PHQ-9 Depression Total Score: 3 07/06/20 22 11:00 AM EST documented as of this encounter Care Teams Layup Worker Relationship Specialty Start Date End Date Chun Porras MD [address] [place] [address] PCP - General Internal Medicine 05/26/14 Lynsey Madison, PharmD [address] [place] [address] Pharmacist Internal Medicine 09/26/23 documented as of this encounter
--- OUTSIDE RECORDS SUMMARY | 2024-09-08 20:01 | XMS_ITS | Encounter Summary ---
Author Organization [employer] Address [address] [facility] [address] [facility] [address] 7t [place] [address] Care Team Providers Care Stamping Die Try Out Worker Name Role Phone Chun Porras MD Primary Care Provide r Lynsey Madison PharmD Unavailable [phone] Encounter Details Date Type Department Care Team ([facility] Contact Info) Description 08/18/2024 Telephone [facility] [address] [place], [place] [phone] Maritza Mejia, RN [address] [place] [address] Social History Tobacco Use Types Packs/Day Years [...] RN - 08/18/2024 3:54 PM EST .What NEUROSURGERY RESEARCH DIRECTOR Tier would you like this patient to be? Tier 1 = HIGH RISK, Monthly NEUROSURGERY RESEARCH DIRECTOR visits Tier 2 = MODerate RISK, Q3 Month visits Tier 3 = LOW RISK = Q4-6 month visits documented in this encounter Plan of Treatment Upcoming Encounters Date Type Department Care Team (Late st Contact Info) Description 09/10/2024 11:30 AM EST Office Visit [facility] [address] [place] [address] Chun Porras MD [address] [place] [address] 09/22/2024 11:00 AM EDT Office Visit [address] [address] 09/22/2024 1:00 PM EDT Telemedicine [address] [address] Chun Porras MD [address] [place] [address] documented as of this encounter Goals Goal [...] documented as of this encounter Care Teams Stamping Die Try Out Worker Relationship Specialty Start Date End Date Chun Porras MD 230 [place] [address] PCP - General Internal Medicine 05/26/14 Lynsey Madison, MichaelD 230 [place] [address] Pharmacist Internal Medicine 09/26/23 documented as of this encounter
--- OUTSIDE RECORDS SUMMARY | 2024-09-08 20:01 | XMS_ITS | Encounter Summary ---
Author Organization [employer] Address [address] [facility] [address] 7t [place] [address] Care Team Providers Care Director Of Business Operations Name Role Phone Chun Porras MD Primary Care Provide r Lynsey Madison PharmD Unavailable [phone] Reason for Visit * Reason Comments Med Refill Encounter Details Date Type Department Care Team ([facility] st Contact Info) Description 06/21/2023 Refill [facility] 230 [place] [address] Chun Porras MD 230 [place] [address] Type 2 diabetes mellitus without complication, unspecified whether skilled nursing insulin use ([facility]); Mixed hyperlipidemia Social History Tobacco Use Types [...] Description 09/10/2024 11:30 AM EST Office Visit [address] [address] Chun Porras MD [address] [place] [address] 09/22/2024 11:00 AM EDT Office Visit [address] [address] 09/22/2024 1:00 PM EDT Telemedicine [address] [address] Chun Porras MD [address] [place] [address] documented as of this encounter Visit Diagnoses Diagnosis Type 2 diabetes mellitus without complication, unspecified whether continuous churn buttermaker insulin use ([facility]) Mixed hyperlipidemia documented in this encounter Additional Health Concerns Assessment Noted Time PHQ-9 Depression Total Score: 3 07/06/20 22 11:00 AM EST documented as of this encounter Care Teams Director Of Business Operations Relationship Specialty Start Date End Date Chun Porras MD [address] [place] [address] PCP - General Internal Medicine 05/26/14 Lynsey Madison, MichaelD 230 [place] [address] Pharmacist Internal Medicine 09/26/23 documented as of this encounter
--- OUTSIDE RECORDS SUMMARY | 2024-09-08 20:01 | XMS_ITS | Encounter Summary ---
Author Organization [employer] Address [address] 7t [place] [address] Care Team Providers Care Manager Restaurant Name Role Phone Chun Porras MD Primary Care Provide r Lynsey Madison PharmD Unavailable [phone] Reason for Visit * Reason Comments Med Refill Encounter Details Date Type Department Care Team ([facility] st Contact Info) Description 09/18/2023 Refill [facility] 230 [place] [address] Chun Porras MD 230 [place] [address] Mixed hyperlipidemia Social History Tobacco Use Types [...] 11:30 AM EST Office Visit [facility]INE [address] [place] [address] Chun Porras MD [address] [place] [address] 09/22/2024 11:00 AM EDT Office Visit [address] [address] 09/22/2024 1:00 PM EDT Telemedicine [address] [address] Chun Porras MD [address] [place] [address] documented as of this encounter Goals Goal [...] documented as of this encounter Care Teams Manager Restaurant Relationship Specialty Start Date End Date Chun Porras MD [address] [place] [address] PCP - General Internal Medicine 05/26/14 Lynsey Madison, Sherwin [address] [place] [address] Pharmacist Internal Medicine 09/26/23 documented as of this encounter
--- OUTSIDE RECORDS SUMMARY | 2024-09-08 20:01 | XMS_ITS | Encounter Summary ---
Author Organization [employer] Address [address] [address] 7t [place] [address] Care Team Providers Care Bulk Gas Specialist Name Role Phone Chun Porras MD Primary Care Provide r Lynsey Madison PharmD Unavailable [phone] Reason for Visit * Reason Comments Rash Face Encounter Details Date Type Department Care Team (Latest Contact Info) Description 08/13/2024 3:20 PM EST Office Visit [facility] 230 [place] [address] Gastroesophageal reflux disease without esophagitis (Primary Dx); [...] Description 09/10/2024 11:30 AM EST Office Visit [facility] [address] [place] [address] Chun Porras MD [address] [place] [address] 09/22/2024 11:00 AM EDT Office Visit [address] [address] 09/22/2024 1:00 PM EDT Telemedicine [address] [address] Chun Porras MD 230 [place] [address] documented as of this encounter Goals Goal [...] documented as of this encounter Care Teams Bulk Gas Specialist Relationship Specialty Start Date End Date Chun Porras MD [address] [place] [address] PCP - General Internal Medicine 05/26/14 Lynsey Madison, Sherwin [address] [place] [address] Pharmacist Internal Medicine 09/26/23 documented as of this encounter
--- OUTSIDE RECORDS SUMMARY | 2024-09-08 20:01 | XMS_ITS | Encounter Summary ---
Author Organization [employer] Address [address] [facility] [address] 7t [place] [address] Care Team Providers Care Supervisor Paste Mixing Name Role Phone Chun Porras MD Primary Care Provide r Lynsey Madison PharmD Unavailable [phone] Encounter Details Date Type Department Care [...] Description 09/10/2024 11:30 AM EST Office Visit [facility] [address] [place] [address] Chun Porras MD [address] [place] [address] 09/22/2024 11:00 AM EDT Office Visit [address] [address] 09/22/2024 1:00 PM EDT Telemedicine [address] [address] Chun Porras MD [address] [place] [address] documented as of this encounter Goals Goal [...] as of this encounter Care Teams Supervisor Paste Mixing Relationship Specialty Start Date End Date Chun Porras MD [address] [place] [address] PCP - General Internal Medicine 05/26/14 Lynsey Madison, MichaelD [address] [place] [address] Pharmacist Internal Medicine 09/26/23 documented as of this encounter
--- OUTSIDE RECORDS SUMMARY | 2024-09-08 20:01 | XMS_ITS | Encounter Summary ---
Author Organization [employer] Address [address] [facility] [address] 7t [place] [address] Care Team Providers Care Hand Tire Trimmer Name Role Phone Chun Porras MD Primary Care Provide r Lynsey Madison PharmD Unavailable [phone] Reason for Visit * Reason Onset Date Comments Med Refill 03/22/2023 Encounter Details Date Type Department Care Team (Late st Contact Info) Description 03/14/2023 Refill [facility] 230 [place] [address] Chun Porras MD 230 [place] [address] Chronic midline low back pain without sciatica [...] medication. He can be contact any time. 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 * Telephone Encounter - Arlette Phipps [...] Description 09/10/2024 11:30 AM EST Office Visit [facility] [address] [place] [address] Chun Porras MD 230 [place] [address] 09/22/2024 11:00 AM EDT Office Visit [facility] [address] [place] [address] 09/22/2024 1:00 PM EDT Telemedicine [facility] [address] [place] [address] Chun Porras MD [address] [place] [address] documented as of this encounter Visit Diagnoses Diagnosis Chronic midline low back pain without sciatica documented in this encounter Additional Health Concerns Assessment Noted Time PHQ-9 Depression Total Score: 3 07/06/20 22 11:00 AM EST documented as of this encounter Care Teams Hand Tire Trimmer Relationship Specialty Start Date End Date Chun Porras MD [address] [place] [address] PCP - General Internal Medicine 05/26/14 Lynsey Madison, MichaelD [address] [place] [address] Pharmacist Internal Medicine 09/26/23 documented as of this encounter
--- OUTSIDE RECORDS SUMMARY | 2024-09-08 20:01 | XMS_ITS | Encounter Summary ---
Author Organization [email or web address] Address [address] [facility] [address] 7t [place] [address] Care Team Providers Care Dust Collector Treater Name Role Phone Chun Porras MD Primary Care Provide r Lynsey Madison PharmD Unavailable [phone] Reason for Visit * Reason Comments Med Refill Encounter Details Date Type Department Care Team ([facility] st Contact Info) Description 08/22/2023 Refill [facility] 230 [place] [address] Colleen Lou FNP 230 [place] [address] Chronic obstructive pulmonary disease with (acute) exacerbation [...] AM EST Office Visit [facility] [address] [place] [address] Chun Porras MD [address] [place] [address] 09/22/2024 11:00 AM EDT Office Visit [address] [address] 09/22/2024 1:00 PM EDT Telemedicine [address] [address] Chun Porras MD [address] [place] [address] documented as of this encounter Goals Goal [...] documented as of this encounter Care Teams Dust Collector Treater Relationship Specialty Start Date End Date Chun Porras MD [address] [place] [address] PCP - General Internal Medicine 05/26/14 Lynsey Madison, Sherwin [address] [place] [address] Pharmacist Internal Medicine 09/26/23 documented as of this encounter
--- OUTSIDE RECORDS SUMMARY | 2024-09-08 20:01 | XMS_ITS | Encounter Summary ---
Author Organization [employer] Address [address] 7t [place] [address] Care Team Providers Care Bladder Tier Name Role Phone Chun Porras MD Primary Care Provide r Lynsey Madison PharmD Unavailable [phone] Reason for Visit * Reason Onset Date Comments Med Refill 08/13/2024 Encounter Details Date Type Department Care Team ([facility] st Contact Info) Description 08/13/2024 Telephone [facility] 230 [place] [address] Chun Porras MD 230 [place] [address] Med Refill Social History Tobacco Use Types [...] Upcoming Encounters Date Type Department Care Team ([facility] st Contact Info) Description 09/10/2024 11:30 AM EST Office Visit [facility] [address] [place] [address] Chun Porras MD [address] [place] [address] 09/22/2024 11:00 AM EDT Office Visit [address] [address] 09/22/2024 1:00 PM EDT Telemedicine [address] [address] Chun Porras MD [address] [place] [address] documented as of this encounter Goals Goal [...] documented as of this encounter Care Teams Bladder Tier Relationship Specialty Start Date End Date Chun Porras MD [address] [place] [address] PCP - General Internal Medicine 05/26/14 Lynsey Madison, PharmD [address] [place] [address] Pharmacist Internal Medicine 09/26/23 documented as of this encounter
--- OUTSIDE RECORDS SUMMARY | 2024-09-08 20:01 | XMS_ITS | Encounter Summary ---
Author Organization [employer] Address [address] [facility] [address] [facility] [address] [address] 7t [place] [address] Care Team Providers Care Aging Room Operator Name Role Phone Chun Porras MD Primary Care Provide r Lynsey Madison PharmD Unavailable [phone] Reason for Visit * Reason Comments Med Refill Encounter Details Date Type Department Care Team ([facility] st Contact Info) Description 08/13/2024 Refill [facility] 230 [place] [address] Chun Porras MD 230 [place] [address] Essential hypertension; Type 2 diabetes mellitus without complication, unspecified whether detention insulin use ([facility]); Erectile dysfunction, unspecified erectile dysfunction type Social [...] Description 09/10/2024 11:30 AM EST Office Visit [facility] [address] [place] [address] Chun Porras MD [address] [place] [address] 09/22/2024 11:00 AM EDT Office Visit [facility] [address] [place] [address] 09/22/2024 1:00 PM EDT Telemedicine [address] [address] Chun Porras MD [address] [place] [address] documented as of this encounter Goals Goal Patient Goal Type Associated Problems Recent Progress Patient-Stated? Author Blood Pressure < 140/90 Blood Pressure Essential hypertension 136/84(2024 3:06 PM EST) No Madison, Jerril, PharmD documented as of this encounter Visit Diagnoses Diagnosis Essential hypertension Unspecified essential hypertension Type 2 diabetes mellitus without complication, unspecified whether detention insulin use ([facility]) Erectile dysfunction, unspecified erectile dysfunction type documented in this encounter Additional Health Concerns Assessment Noted Time PHQ-9 Depression Total Score: 1 11/12/19 11:09 AM EDT documented as of this encounter Care Teams Aging Room Operator Relationship Specialty Start Date End Date Chun Porras MD 230 [place] [address] PCP - General Internal Medicine 05/26/14 Lynsey Madison, MichaelD 230 [place] [address] Pharmacist Internal Medicine 09/26/23 documented as of this encounter
--- OUTSIDE RECORDS SUMMARY | 2024-09-08 20:01 | XMS_ITS | Encounter Summary ---
Author Organization [email or web address] Address [address] 7t [place] [address] Care Team Providers Care Men'S Locker Room Attendant Name Role Phone Chun Porras MD Primary Care Provide r Lynsey Madison PharmD Unavailable [phone] Reason for Visit * Reason Comments Med Refill Encounter Details Date Type Department Care Team ([facility] st Contact Info) Description 10/18/2023 Refill [facility] 230 [place] [address] Chun Porras MD 230 [place] [address] Essential hypertension Social History Tobacco Use Types [...] 11:30 AM EST Office Visit [facility] [address] [place] [address] Chun Porras MD 230 [place] [address] 09/22/2024 11:00 AM EDT Office Visit [address] [address] 09/22/2024 1:00 PM EDT Telemedicine [address] [address] Chun Porras MD [address] [place] [address] documented as of this encounter Goals Goal [...] documented as of this encounter Care Teams Men'S Locker Room Attendant Relationship Specialty Start Date End Date Chun Porras MD [address] [place] [address] PCP - General Internal Medicine 05/26/14 Lynsey Madison, MichaelD [address] [place] [address] Pharmacist Internal Medicine 09/26/23 documented as of this encounter
--- OUTSIDE RECORDS SUMMARY | 2024-09-08 20:01 | XMS_ITS | Encounter Summary ---
Author Organization [employer] Address [address] [facility] [address] 7[address] [place] [address] Care Team Providers Care Lease Administrator Name Role Phone Chun Porras MD Primary Care Provide r Lynsey Madison PharmD Unavailable [phone] Reason for Visit * Reason Onset Date Comments Chart Prep 08/26/2024 Encounter Details Date Type Department Care Team ([facility] st Contact Info) Description 08/26/2024 Telephone [facility]INE 230 [place] [address] Chun Porras MD 230 [place] [address] Chart Prep Social History Tobacco Use Types [...] Description 09/10/2024 11:30 AM EST Office Visit [facility] [address] [place] [address] Chun Porras MD [address] [place] [address] 09/22/2024 11:00 AM EDT Office Visit [address] [address] 09/22/2024 1:00 PM EDT Telemedicine [address] [place] [address] Chun Porras MD [address] [place] [address] documented as of this encounter Goals Goal [...] documented as of this encounter Care Teams Lease Administrator Relationship Specialty Start Date End Date Chun Porras MD [address] [place] [address] PCP - General Internal Medicine 05/26/14 Lynsey Madison, PharmD [address] [place] [address] Pharmacist Internal Medicine 09/26/23 documented as of this encounter
--- OUTSIDE RECORDS SUMMARY | 2024-09-08 20:01 | XMS_ITS | Encounter Summary ---
Author Organization [employer] Address [address] 7t [place] [address] Care Team Providers Care Superintendent Service Name Role Phone Chun Porras MD Primary Care Provide r Lynsey Madison PharmD Unavailable [phone] Reason for Visit * Reason Comments Med Refill Encounter Details Date Type Department Care Team ([facility] st Contact Info) Description 08/17/2024 Refill [facility] 230 [place] [address] Lynsey Madison, PharmD [address] [place] [address] Mixed hyperlipidemia Social History Tobacco Use Types [...] the past 12 months, has t he [employer], gas, oil or water company threatened to [...] 09/10/2024 11:30 AM EST Office Visit [facility] [address] [place] [address] Chun Porras MD [address] [place] [address] 09/22/2024 11:00 AM EDT Office Visit [address] [address] 09/22/2024 1:00 PM EDT Telemedicine [facility] [address] [place] [address] Chun Porras MD [address] [place] [address] documented as of this encounter Goals Goal [...] documented as of this encounter Care Teams Superintendent Service Relationship Specialty Start Date End Date Chun Porras MD 230 [place] [address] PCP - General Internal Medicine 05/26/14 Lynsey Madison PharmD [address] [place] [address] Pharmacist Internal Medicine 09/26/23 documented as of this encounter
--- OUTSIDE RECORDS SUMMARY | 2024-09-08 20:01 | XMS_ITS | Encounter Summary ---
Author Organization [employer] Address [address] [facility] [address] 7t [place] [address] Care Team Providers Care Operating Room Technician Name Role Phone Chun Porras MD Primary Care Provide r Lynsey Madison PharmD Unavailable [phone] Reason for Visit * Reason Onset Date Comments Med Refill 08/13/2024 Encounter Details Date Type Department Care Team ([facility] st Contact Info) Description 08/13/2024 Refill [facility] 505 [place] [address] Maritza Mejia, RN 505 [place] [address] Chronic midline low back pain without sciatica [...] Description 09/10/2024 11:30 AM EST Office Visit [facility] [address] [place] [address] Chun Porras MD [address] [place] [address] 09/22/2024 11:00 AM EDT Office Visit [address] [address] 09/22/2024 1:00 PM EDT Telemedicine [facility] [address] [place] [address] Chun Porras MD [address] [place] [address] documented as of this encounter Goals Goal [...] documented as of this encounter Care Teams Operating Room Technician Relationship Specialty Start Date End Date Chun Porras MD 230 [place] [address] PCP - General Internal Medicine 05/26/14 Lynsey Madison PharmD 230 [place] [address] Pharmacist Internal Medicine 09/26/23 documented as of this encounter
--- OUTSIDE RECORDS SUMMARY | 2024-09-08 20:01 | XMS_ITS | Encounter Summary ---
Author Organization [employer] Address [address] [place] [address] Care Team Providers Care Disulfurizer Tender Name Role Phone Chun Porras MD Primary Care Provide r Lynsey Madison PharmD Unavailable [phone] Reason for Visit * Reason Comments SDOH Concerns VIVIAN Thomas SDOH Encounter Details Date Type Department Care Team ([facility] st Contact Info) Description 08/28/2024 Patient Outreach [facility] [address] [place] [address] Chun Porras MD [address] [place] [address] SDOH Concerns (VIVIAN Thomas SDOH ) Social [...] outbound call to patient introducing herself from [facility] CM Department, in regards to SDOH positive (issues with pest control. Patient's name and was confirmed. Patient stated that landlord is aware of pest control issue and has exterminated the property several times. Pest control issue continues. Patient in satisfied with landlords attention to matter. CHW provided patient with [employer]'s contact information for reference if needed. Patient does not think Code Enforcement is necessary at this time. CHW advise patient to inform the Sail Finisher Hand from [facility] to see if there are any other resources they can provide to patient. Patient verbalized understanding and stated that he will. documented in this encounter Plan of Treatment Upcoming Encounters Date Type Department Care Team (Late st Contact Info) Description 09/10/2024 11:30 AM EST Office Visit [facility] [id number] Chun Porras MD Reece [place] [phone] 09/22/2024 11:00 AM EDT Office Visit [facility] [place] [id number] 09/22/2024 1:00 PM EDT Telemedicine [facility] Reece [place] [phone] Chun Porras MD [place] [id number] documented as of this encounter Goals Goal [...] documented as of this encounter Care Teams Disulfurizer Tender Relationship Specialty Start Date End Date Chun Porras [facility] [place] [address] PCP - General Internal Medicine 05/26/14 Lynsey Madison, PharmD [facility] [place] [address] Pharmacist Internal Medicine 09/26/23 documented as of this encounter
--- OUTSIDE RECORDS SUMMARY | 2024-09-08 20:01 | XMS_ITS | Encounter Summary ---
Author Organization [employer] Address [address] [place] [address] Care Team Providers Care Spiral Weaver Name Role Phone Chun Porras MD Primary Care Provide r Lynsey Madison PharmD Unavailable [phone] Reason for Visit * Reason Comments Med Refill Encounter Details Date Type Department Care Team ([facility] st Contact Info) Description 04/25/2023 Refill [facility] [address] [place] [address] Name, MD Cristhian [address] [place] [address] Essential hypertension Social History Tobacco Use Types [...] 11:30 AM EST Office Visit [facility] [address] [place] [phone] Chun Porras MD [address] [place] [phone] 09/22/2024 11:00 AM EDT Office Visit [address] [address] 09/22/2024 1:00 PM EDT Telemedicine [address] [address] Chun oPrras MD [address] [place] [phone] documented as of this encounter Visit Diagnoses Diagnosis Essential hypertension Unspecified essential hypertension documented in this encounter Additional Health Concerns Assessment Noted Time PHQ-9 Depression Total Score: 3 07/06/20 22 11:00 AM EST documented as of this encounter Care Teams Spiral Weaver Relationship Specialty Start Date End Date Chun Porras MD [address] [place] [phone] PCP - General Internal Medicine 05/26/14 Lynsey Madison, MichaelD [address] [place] [phone] Pharmacist Internal Medicine 09/26/23 documented as of this encounter
--- OUTSIDE RECORDS SUMMARY | 2024-09-08 20:01 | XMS_ITS | Encounter Summary ---
Author Organization [employer] Address [address] [place] [address] Care Team Providers Care Digital Account Director Name Role Phone Chun Porras MD Primary Care Provide r Lynsey Madison PharmD Unavailable [phone] Reason for Visit * Reason Comments Med Refill Encounter Details Date Type Department Care Team ([facility] st Contact Info) Description 11/14/2023 Refill [facility] [address] [place] [address] Chun Porras MD [address] [place] [address] Chronic midline low back pain without sciatica [...] Office Visit [facility] [address] [place] [phone] Chun Porras MD [address] [place] [address] 09/22/2024 11:00 AM EDT Office Visit [address] [address] 09/22/2024 1:00 PM EDT Telemedicine [address] [address] Chun Porras MD [address] [place] [address] documented as of this encounter Goals Goal [...] documented as of this encounter Care Teams Digital Account Director Relationship Specialty Start Date End Date Brennan Elías, Chun, MD [address] [place] [address] PCP - General Internal Medicine 05/26/14 Lynsey Madison PharmD [address] [place] [address] Pharmacist Internal Medicine 09/26/23 documented as of this encounter
--- OUTSIDE RECORDS SUMMARY | 2024-09-08 20:01 | XMS_ITS | Encounter Summary ---
Author Organization [employer] Address [address] [place] [address] Care Team Providers Care Frame Stripper Name Role Phone Chun Porras MD Primary Care Provide r Lynsey Madison PharmD Unavailable [phone] Reason for Visit * Reason Comments Med Refill Encounter Details Date Type Department Care Team ([facility] st Contact Info) Description 07/20/2022 Refill [facility] [address] [place] [address] Chun Porras MD [address] [place] [address] Chronic midline low back pain without sciatica [...] 11:30 AM EST Office Visit [facility] [place] [address] [place] [address] 09/22/2024 11:00 AM EDT Office Visit [facility] [place] [address] 09/22/2024 1:00 PM EDT Telemedicine [facility] [place] [address] [place] [address] documented as of this encounter Visit Diagnoses Diagnosis Chronic midline low back pain without sciatica documented in this encounter Additional Health Concerns Assessment Noted Time PHQ-9 Depression Total Score: 3 07/06/20 22 11:00 AM EST documented as of this encounter Care Teams Frame Stripper Relationship Specialty Start Date End [place] [address] PCP - General Internal Medicine 05/26/14 Lynsey Madison PharmD [facility] [place] [address] Pharmacist Internal Medicine 09/26/23 documented as of this encounter
== END 2024-09-08 18:34 | disposition left against medical advice (07) ==
PROVIDERS: Registered Nurse Emergency; Emergency Provider Student in an Organized Health Care Education/Training Program; PCP Internal Medicine
DX: R07.89 Other chest pain (principal); R06.02 Shortness of breath; Z79.899 Other long term (current) drug therapy
CPT/HCPCS: 71046; 80053; 84484; 85025; 85610; 93005; 93306; 99283

== ENCOUNTER → 2024-09-08 14:02 | Outpatient (BNV) | payer OTHER, SELFPAY | PROVIDERS: PCP Internal Medicine; Visit Provider Internal Medicine | DX: I51.7 Cardiomegaly (principal) | CPT/HCPCS: 93306 ==

== ENCOUNTER → 2024-09-08 14:29 | Outpatient (BNV) | payer OTHER, SELFPAY | PROVIDERS: PCP Internal Medicine; Visit Provider Radiology Diagnostic Radiology | DX: J84.9 Interstitial pulmonary disease, unspecified (principal) | CPT/HCPCS: 71046 ==

== ENCOUNTER 2024-10-04 14:27 | Emergency (ER) | payer OTHER, SELFPAY ==
--- NOTE | ~2024-10-04 | XR_ITS ---
CLINICAL HISTORY: chest pain 2 view chest x-ray Comparison: CR/IN/SR - XR CHEST 2V - 09/08/24 14:55 EST Findings: There are linear opacities within the right lower lung. Left lung is clear. No consolidation or pleural effusion. Normal size heart. Chronic deformity of multiple right-sided ribs. No acute fracture. IMPRESSION: Mild linear atelectasis and/or scarring within the right lower lung. This document has been electronically signed by: Mary Cevallos MD on 10/04/2024 17:33:25
[2024-10-04 14:39] VITALS: BP 135/76; BP 152/96; PULSE 79; PULSE 90; RESP 18; TEMP 36.6; O2SAT 96; O2SAT 98; BMI 25.5
--- NOTE | 2024-10-04 14:39 | ECG_ITS ---
Test Reason : CP Blood Pressure : */* mmHG Vent. Rate : 78 BPM Atrial Rate : 78 BPM P-R Int : 156 ms QRS Dur : 102 ms QT Int : 384 ms P-R-T Axes : 49 0 22 degrees QTcB Int : 437 ms Normal sinus rhythm Normal ECG When compared with ECG of 08-Sep-2024 14:03, No significant change was found Referred By: Generic ED Physician Electronically Signed By: KENDALL LUCERO MD
[2024-10-04 15:12] LABS: Basophils Absolute Auto 0.1 X10*3/uL (0.0-0.2); Basophils Percent Auto 0.6 % (0-2); Eosinophils Absolute Auto 0.4 X10*3/uL (0.0-0.4); Eosinophils Percent Auto 3.9 % (0-4); Hematocrit 39.8 % (42.0-52.0); Hemoglobin 14.1 g/dl (14.0-18.0); Imm Gran Abs Auto 0.05 X10*3/uL (0.00-0.03); Imm Gran Pct Auto 0.5 % (0.0-0.4); Lymphocytes Absolute Auto 2.4 X10*3/uL (1.2-4.9); MANUAL DIFF FLAG SCAN; Mean Corpuscular HGB Conc 35.4 g/dl (31.0-36.0); Mean Corpuscular Hemoglobin 30.1 pg (27.0-33.0); Monocytes Absolute Auto 1.5 X10*3/uL (0.1-1.2); Monocytes Percent Auto 14.1 % (2-11); Neutrophils Absolute Auto 6.3 x10*3/uL (2.0-8.3); Neutrophils Percent Auto 58.9 % (45-73); Platelet Count 231 X10*3/uL (160-400); Red Blood Count 4.68 X10*6/uL (4.60-5.80); Red Cell Distribution Width 13.2 % (11.0-16.0); SCAN SMEAR FLAG 1; White Blood Count 10.8 X10*3/uL (4.8-10.8)
[2024-10-04 15:18] LABS: INTERNATIONAL NORM RATIO 0.8 (0.9-1.1); Prothrombin Time 9.8 SEC (10.9-12.4)
[2024-10-04 15:30] LABS: SLIDE REVIEW VERIFIED
[2024-10-04 15:49] LABS: Influenza A PCR NEGATIVE (Negative); Influenza B PCR NEGATIVE (Negative); Resp Syncy Virus RNA Qual PCR NEGATIVE (Negative); SARS COV2 PCR INHOUSE NEGATIVE (Negative)
[2024-10-04 15:51] LABS: Alanine Aminotransferase 34 U/L (0-40); Anion Gap 14 (12-20); Aspartate Amino Transferase 26 U/L (5-37); Bilirubin Total 0.3 mg/dL (0.0-1.0); Blood Urea Nitrogen 22 mg/dL (9-16); Calcium 8.8 mg/dL (8.4-10.2); Carbon Dioxide 26 mmol/L (22-29); Chloride 105 mmol/L (96-108); Estimated Glomerular Filt Rate > 60; Glucose Random 108 mg/dL (60-115); Magnesium 1.6 mg/dL (1.6-2.6); Potassium 3.6 mmol/L (3.3-5.1); Sodium 141 mmol/L (135-145); Total Protein 7.2 g/dL (6.5-8.0)
[2024-10-04 16:09] LABS: Alkaline Phosphatase 78 U/L (39-117)
--- NOTE | 2024-10-04 16:09 | PC.NURSE ---
pt coming in from home saying he has midline sharp chest pain. the pt attributes it to anxiety and says he has had trouble getting his clonazepam. pt reports that a doctor wont prescribe it to him and he has been getting it off the streets. on arrival EKG done and cardiac labs ordered. NSR on tele. no acute distress, waiting for ED provider
--- NOTE | 2024-10-04 16:57 | ED_ITS ---
HPI - Chest Pain General Chief Complaint: Chest Pain Stated Complaint: CHEST PAIN Time Seen by Provider: 10/04/24 16:24 History of Present Illness ED Provider: Zully DOLAN narrative: The patient is a 64-year-old male who says that this morning he developed chest pains in his left chest and his mid chest. Pain was somewhat worse with taking a deep breath. He also noticed that his blood pressure was high. He also felt that he had some swelling in both of his legs since yesterday. He elevated his legs. This seemed to help. He says that he has some chronic swelling of the left leg. The patient took an ambulance to the hospital to be evaluated for symptoms today. At the time that I saw the patient he was feeling somewhat better. No fever, cough, or sputum production. No abdominal pain, nausea, vomiting. Related Data Home Medications ?Medication ?Instructions ?Recorded ?Confirmed amitriptyline 100 mg tablet 1 tab PO BEDTIME 07/25/20 08/12/24 aspirin 81 mg tablet,delayed 1 tab PO QAM 07/25/20 08/12/24 release atorvastatin 40 mg tablet 1 tab PO BEDTIME 07/25/20 08/12/24 sildenafil 100 mg tablet (Viagra) 1 tab PO DAILY PRN Erectile 07/25/20 08/12/24 Dysfunction duloxetine 60 mg capsule,delayed 1 cap PO QAM 03/28/21 08/12/24 release finasteride 5 mg tablet 1 tab PO DAILY 07/08/21 08/12/24 amlodipine 10 mg tablet 1 tab PO QAM 09/08/21 08/12/24 metoprolol tartrate 50 mg tablet 1 tab PO 09/08/21 08/12/24 nebulizers 10/26/22 08/12/24 tramadol 50 mg tablet 50 mg PO TID PRN 08/16/23 08/12/24 metformin 500 mg tablet,extended 500 mg PO BID 12/24/23 08/12/24 release 24 hr blood sugar diagnostic (FreeStyle #10 ea 02/06/24 08/12/24 Lite Strips) lancets 33 gauge (TRUEplus Lancets) #100 ea 02/06/24 08/12/24 ramelteon 8 mg tablet 8 mg PO DAILY 02/21/24 08/12/24 gabapentin 300 mg capsule mg PO 05/06/24 08/12/24 Previous Rx's ?Medication ?Instructions ?Recorded ipratropium 0.5 mg-albuterol 3 mg 3 ml inhalation Q4H PRN shortness 06/28/22 (2.5 mg base)/3 mL nebulization of breath or wheezing #90 mL soln lidocaine 5 % topical patch 1 patch topical DAILY #15 ea 08/25/22 (Lidoderm) albuterol sulfate 2.5 mg/3 mL 2.5 mg (3 mL) inhalation Q4H PRN 12/04/23 (0.083 %) solution for nebulization shortness of breath or wheezing 30 days #360 mL terazosin 5 mg capsule 5 mg PO BEDTIME 90 days #90 caps 01/21/24 dicyclomine 20 mg tablet 20 mg PO QID 30 days #120 tabs 05/06/24 rabeprazole 20 mg tablet,delayed 20 mg PO BID #60 tabs 05/06/24 release (AcipHex) simethicone 180 mg capsule 180 mg PO QID 30 days #120 caps 05/06/24 albuterol sulfate 90 mcg/actuation 2 puff PO Q4-6H PRN Shortness Of 05/11/24 aerosol inhaler Breath Or Wheezing 30 days #8.5 grams bismuth subsalicylate 262 mg 2 tab PO QID 14 days #112 tabs 05/27/24 chewable tablet (Bismuth) doxycycline hyclate 100 mg tablet 100 mg PO BID 14 days #28 tabs 05/27/24 metronidazole 500 mg tablet 1,000 mg (2 x 500 mg) PO BID 14 05/27/24 days #56 tabs montelukast 10 mg tablet 10 mg PO BEDTIME #30 tabs 06/15/24 fluticasone fur. 200 mcg-umeclid 1 inh inhalation DAILY 30 days #60 08/06/24 62.5 mcg-vilant 25 mcg ea inhalat.powder (Trelegy Ellipta) Allergies Allergy/AdvReac Type Severity Reaction Status Date / Time No Known Allergies Allergy Verified 10/04/24 14:41 [No Known Allergies*] Review of Systems 2 Review of Systems: Yes all other systems are reviewed and are negative PMFSH Past Medical History Medical History (Updated 10/04/24 @ 18:34 by Slim Andrea MD) New abnormality on chest x-ray REJI (acute kidney injury) Urgency of micturition Urinary hesitancy Nocturia more than twice per night Benign prostatic hyperplasia with weak urinary stream Epidermal inclusion cyst Atelectasis Fecal incontinence Flank lipoma Asthma-COPD overlap syndrome IBS (irritable bowel syndrome) Umbilical hernia Diabetes Arthritis Back pain GERD (gastroesophageal reflux disease) Bipolar 1 disorder Anxiety Depression Elevated cholesterol Tension pneumothorax, spontaneous Hypertension Asthma Surgical History History of esophagogastroduodenoscopy (EGD) S/P excision of lipoma (02/20/23) History of excision of mass (12/13/22) Hx of colonoscopy Hx of tracheostomy History of lung surgery Hx of hernia repair Family History Family History Mother Stomach cancer Brother Prostate cancer Brother Prostate cancer Social History Social History Household Members: None Housing: Apartment Do you presently have visiting nurse or other home services: No Alcohol intake: current Alcohol intake frequency: a few times a month Alcohol type: beer Patient Tobacco Use Status: Never used Tobacco e-Cigarette/Vaping Use: Never Used Second Hand Smoke Exposure: No Substance Use Type: Marijuana Advance Directives Date on File: 03/28/21 service: No Current occupational status: unemployed Physical Exam 2 Vital Signs: Vital Signs: Last Vital Signs Temp 98.7 F 10/04/24 18:53 Pulse 80 10/04/24 18:53 Resp 16 10/04/24 18:53 BP 143/87 H 10/04/24 18:53 Pulse Ox 96 10/04/24 18:53 O2 Del Method Room Air 10/04/24 18:53 BMI result Body Mass Index 25.5 Const: Other: The patient is awake and alert. He does not appear in acute distress. HEENT: Other: Face is symmetrical. Mucous membranes moist. Eyes: General: appearance normal, both eyes and all related structures Neck: Neck: Yes normal visual inspection, Yes full ROM, Yes no lymphadenopathy and Yes no JVD Resp: Other: Breath sounds are distinctly louder on the right side compared to the left side. Cardio: Rate: regular rate Rhythm: regular rhythm Heart sounds: S1 normal heart sound present and S2 normal heart sound present GI: Other: The abdomen is soft and nontender Skin: Other: The skin is dry and unremarkable Neuro: Other: The patient is awake and alert with a normal mental status. Eye movements are normal. Face is symmetrical. Speech is clear. He moves his extremities normally. Extrem: Other: I did not appreciate any lower extremity swelling or edema, asymmetry, or tenderness. Medical Decision Making Medical Decision Making [facility] Narrative: The patient presents with a fairly nonspecific description of chest pain symptoms that were associated with a high blood pressure readings this morning. Clinically the patient looks quite well. His EKGs unremarkable. He has 2 negative troponins. His D-dimer is undetectable. Chest x-ray is unremarkable. The patient's blood pressure in the emergency room was reasonably good. I think he may be discharged to follow up with his regular doctor. Lab Data 10/04/24 15:05 10/04/24 15:05 Labs: Lab Results 10/04/24 10/04/24 Range/Units 15:05 17:46 WBC 10.8 (4.8-10.8) X10*3/uL RBC 4.68 (4.60-5.80) X10*6/uL Hgb 14.1 (14.0-18.0) g/dl Hct 39.8 L (42.0-52.0) % MCV 85.0 (80.0-98.0) fL MCH 30.1 (27.0-33.0) pg MCHC 35.4 (31.0-36.0) g/dl RDW 13.2 (11.0-16.0) % Plt Count 231 (160-400) X10*3/uL MPV 10.0 (9.4-12.4) fL Immature Gran % (Auto) 0.5 H (0.0-0.4) % Neut % (Auto) 58.9 (45-73) % Lymph % (Auto) 22.0 (20-40) % Kimble % (Auto) 14.1 H (2-11) % Eos % (Auto) 3.9 (0-4) % Baso % (Auto) 0.6 (0-2) % Lymph # (Auto) 2.4 (1.2-4.9) X10*3/uL Kimble # (Auto) 1.5 H (0.1-1.2) X10*3/uL Eos # (Auto) 0.4 (0.0-0.4) X10*3/uL Baso # (Auto) 0.1 (0.0-0.2) X10*3/uL Abs Immat Gran (auto) 0.05 H (0.00-0.03) X10*3/uL Absolute Neuts (auto) 6.3 (2.0-8.3) x10*3/uL Absolute Nucleated RBC 0.000 (0.0-0.012) X10*3/uL Nucleated RBC % (auto) 0.0 (0.0-0.2) /100WBC Smear Tech's Comments VERIFIED PT 9.8 L (10.9-12.4) SEC INR 0.8 L (0.9-1.1) D-Dimer High Sensitivty < 150 NG/ML Sodium 141 (135-145) mmol/L Potassium 3.6 (3.3-5.1) mmol/L Chloride 105 (96-108) mmol/L Carbon Dioxide 26 (22-29) mmol/L Anion Gap 14 (12-20) BUN 22 H (9-16) mg/dL Creatinine 0.75 (0.5-1.4) mg/dL Estim Creat Clear Calc 100.0 Estimated GFR > 60 Random Glucose 108 (60-115) mg/dL Calcium 8.8 (8.4-10.2) mg/dL Magnesium 1.6 (1.6-2.6) mg/dL Total Bilirubin 0.3 (0.0-1.0) mg/dL AST 26 (5-37) U/L ALT 34 (0-40) U/L Alkaline Phosphatase 78 (39-117) U/L Troponin I High Sens < 2.7 < 2.7 (<3.5-35.0) ng/L Total Protein 7.2 (6.5-8.0) g/dL Albumin 4.0 (3.5-5.0) g/dL Influenza Type A (PCR) NEGATIVE (Negative) Influenza Type B (PCR) NEGATIVE (Negative) RSV RNA Qual (PCR) NEGATIVE (Negative) SARS-CoV-2 RNA (RT-PCR) NEGATIVE (Negative) Independent Interpretation I performed an independent interpretation of an: EKG Interpretation: EKG at 14:41 shows normal sinus rhythm at 78 beats per minute. It is a normal EKG. No change from previous. Discharge Plan Discharge Clinical Impression: Chest pain Patient Disposition: Home, Self-Care Additional Instructions: Your testing in the emergency room today is reassuring. There was no sign of a heart attack or a blood clot in your lungs. Please continue your regular medications. Please make an appointment with your regular doctor soon to discuss this episode further and to recheck your blood pressure as an outpatient. Return to the emergency room if significantly worse. Prescriptions: No Action albuterol sulfate 2.5 mg /3 mL (0.083 %) solution for nebulization 2.5 mg inhalation Q4H PRN (Reason: shortness of breath or wheezing) 30 Days Qty: 360 7RF albuterol sulfate 90 mcg/actuation HFA aerosol inhaler 2 puff PO Q4-6H PRN (Reason: Shortness Of Breath Or Wheezing) 30 Days Qty: 8.5 2RF bismuth subsalicylate [Bismuth] 262 mg tablet,chewable 2 tab PO QID 14 Days Qty: 112 0RF doxycycline hyclate 100 mg tablet 100 mg PO BID 14 Days Qty: 28 0RF metronidazole 500 mg tablet 1,000 mg PO BID 14 Days Qty: 56 0RF montelukast 10 mg tablet 10 mg PO BEDTIME Qty: 30 4RF Trelegy Ellipta 200-62.5-25 mcg blister with device 1 inh inhalation DAILY 30 Days Qty: 60 7RF atorvastatin 40 mg tablet 1 tab PO BEDTIME aspirin 81 mg tablet,delayed release (DR/EC) 1 tab PO QAM sildenafil [Viagra] 100 mg tablet 1 tab PO DAILY PRN (Reason: Erectile Dysfunction) amitriptyline 100 mg tablet 1 tab PO BEDTIME duloxetine 60 mg capsule,delayed release(DR/EC) 1 cap PO QAM finasteride 5 mg tablet 1 tab PO DAILY amlodipine 10 mg tablet 1 tab PO QAM metoprolol tartrate 50 mg tablet 1 tab PO ipratropium-albuterol 0.5 mg-3 mg(2.5 mg base)/3 mL solution for nebulization 3 ml inhalation Q4H PRN (Reason: shortness of breath or wheezing) Qty: 90 0RF Rx Instructions: until breathing returns to target peak flow/parameters lidocaine [Lidoderm] 5 % adhesive patch,medicated 1 patch topical DAILY Qty: 15 0RF Rx Instructions: leave on most painful area for up to 12 hrs (DME) nebulizers Misc See Rx Instructions .Route Rx Instructions: As directed metformin 500 mg tablet extended release 24 hr 500 mg PO BID Rx Instructions: 1000 mg in the morning and 500 mg at night ramelteon 8 mg tablet 8 mg PO DAILY gabapentin 300 mg capsule PO dicyclomine 20 mg tablet 20 mg PO QID 30 Days Qty: 120 6RF simethicone 180 mg capsule 180 mg PO QID 30 Days Qty: 120 6RF Rx Instructions: after meals rabeprazole [AcipHex] 20 mg tablet,delayed release (DR/EC) 20 mg PO BID Qty: 60 6RF terazosin 5 mg capsule 5 mg PO BEDTIME 90 Days Qty: 90 3RF tramadol 50 mg tablet 50 mg PO TID PRN (DME) FreeStyle Lite Strips Strip See Rx Instructions .ROUTE BID Qty: 10 Rx Instructions: As directed (DME) lancets [TRUEplus Lancets] 33 gauge [facility] See Rx Instructions .ROUTE .MEDSUPPLY Qty: 100 Rx Instructions: As directed Referrals: Chun Michel MD [Primary Care Provider] - (Chest pain) Interventions: ED Discharge Assessment Last Done: 10/04/24 18:53 Discharge Date/Time: 10/04/24 18:53 Print Language: Slovak
[2024-10-04 17:23] LABS: D Dimer High Sensitivity < 150 NG/ML
[2024-10-04 17:38] LABS: Troponin-I High Sensitivity < 2.7 ng/L (<3.5-35.0)
[2024-10-04 17:43] VITALS: BP 126/79; PULSE 77; RESP 17; O2SAT 96
[2024-10-04 18:16] LABS: Troponin-I High Sensitivity < 2.7 ng/L (<3.5-35.0)
[2024-10-04 18:43] VITALS: BP 143/87; PULSE 80; RESP 16; O2SAT 96
[2024-10-04 18:53] VITALS: BP 143/87; PULSE 80; RESP 16; TEMP 37.1; O2SAT 96
== END 2024-10-04 18:53 | disposition home or self-care (01) ==
PROVIDERS: Physician Assistant Medical; Emergency Provider Emergency Medicine; PCP Internal Medicine
DX: R07.9 Chest pain, unspecified (principal); I10 Essential (primary) hypertension; E11.9 Type 2 diabetes mellitus without complications; Z79.899 Other long term (current) drug therapy; Z03.818 Encounter for observation for suspected exposure to other biological agents ruled out
CPT/HCPCS: 0241U; 36415; 71046; 80053; 83735; 84484; 85025; 85379; 85610; 93005; 99283; 99284

== ENCOUNTER → 2024-10-04 14:39 | Outpatient (BNV) | payer OTHER, SELFPAY | PROVIDERS: Emergency Provider Emergency Medicine; PCP Internal Medicine; Visit Provider Internal Medicine Cardiovascular Disease | DX: R07.9 Chest pain, unspecified (principal) | CPT/HCPCS: 93010 ==

== ENCOUNTER → 2024-10-04 16:59 | Outpatient (BNV) | payer OTHER, SELFPAY | PROVIDERS: Emergency Provider Emergency Medicine; PCP Internal Medicine; Visit Provider Radiology Diagnostic Radiology | DX: R07.9 Chest pain, unspecified (principal) | CPT/HCPCS: 71046 ==

== ENCOUNTER 2024-11-18 14:00 | Outpatient (AMB) | payer OTHER, SELFPAY ==
--- NOTE | 2024-11-18 14:43 | MHC.OFFVIS ---
Vital Signs 11/18/24 14:45 Height 5 ft 10 in Weight 172 lb 13.478 oz BMI 24.8 BP 120/60 Blood Pressure Location Lt brachial Position Sitting Pulse 76 Pulse Source Pulse Oximeter Intake Visit Reasons: 3m follow up/ echo Intake Note: 3 mth f/up-echo Customer Relations Specialist Required: Yes Customer Relations Specialist Language: Agriculture Instructor Name: [id number] Accompanied by: Self / Same As Patient Allergies No Known Allergies [No Known Allergies*] Allergy (Verified 10/04/24 14:41) Medication List - Last Reconciled 11/18/24 by Vazquez Monahan MD albuterol sulfate 2.5 mg (3 mL) inhalation Q4H PRN 30 days albuterol sulfate 90 mcg/actuation 2 puffs PO Q4-6H PRN 30 days amitriptyline 1 tab PO BEDTIME amlodipine 1 tab PO QAM aspirin 1 tab PO QAM atorvastatin 1 tab PO BEDTIME bismuth subsalicylate (Bismuth) 2 tabs PO QID 14 days blood sugar diagnostic (FreeStyle Lite Strips) As directed dicyclomine 20 mg PO QID 30 days doxycycline hyclate 100 mg PO BID 14 days duloxetine 1 cap PO QAM finasteride 1 tab PO DAILY bjzxmfrdyen-rtpthmweg-swmzbhjf 200-62.5-25 mcg (Trelegy Ellipta) 1 inh inhalation DAILY 30 days gabapentin mg PO ipratropium-albuterol 0.5 mg-3 mg(2.5 mg base)/3 mL 3 mL inhalation Q4H PRN lancets (TRUEplus Lancets) As directed lidocaine 5% (Lidoderm) 1 patch topical DAILY metformin ER 500 mg PO BID metoprolol tartrate 1 tab PO metronidazole 1,000 mg (2 x 500 mg) PO BID 14 days montelukast 10 mg PO BEDTIME nebulizers As directed rabeprazole (AcipHex) 20 mg PO BID ramelteon 8 mg PO DAILY sildenafil (Viagra) 1 tab PO DAILY PRN simethicone 180 mg PO QID 30 days terazosin 5 mg PO BEDTIME 90 days tramadol 50 mg PO TID PRN HPI Comments Details: 64-year-old gentleman background history of hypertension, diabetes and asthma COPD overlap syndrome who is presenting with chest pain. He has been experiencing chest pain for approximately 1 month. He has been to the ER and had EKG performed and was ruled out. He has describing a sharp sensation on the left and right side of the chest which happens randomly. Mostly these symptoms are happening at rest. With activities he gets some dyspnea and occasionally chest discomfort. EKGs showing sinus bradycardia. He has hypertension but blood pressure appears to be well controlled. He also has asthma and is currently on inhalers and montelukast. He smokes marijuana occasionally. No other drug use. 01/13/2024: He returns for follow-up. He was previously referred for exercise stress test. He was able to exercise for 7 minute 10 seconds on Jeremias protocol achieving 87% of maximum predicted heart rate and max workload of 8.8 Mets. He developed some ECG changes in his inferior leads but did not have any symptoms. He returns and he is complaining of some fatigue and off and on pressure-like chest discomfort. He also has acid reflux and started seeing gastroenterology recently. 08/12/2024: He was referred for coronary CTA. Coronary CTA has shown minimal disease in her coronary arteries. He was noticed to have enlargement of right ventricle by CT scan. He has known COPD. He said he went to the hospital recently because his blood pressure was elevated and he was getting burning chest discomfort. He has known GI issues including esophagitis and Merlos's esophagus. 11/18/2024: He is here for follow-up. He is denying any chest discomfort. He is saying his breathing is stable and he gets some shortness of breath due to underlying COPD/ asthma. He underwent coronary CTA which did not show any significant coronary disease but did raise concern for RV enlargement. echocardiography done in August 2024 showing normal LV function with EF 55-60% without any regional wall motion abnormality and normal diastolic function. RV was noticed to be mildly dilated. Normal PA pressures. [facility] Medical History (Updated 10/05/24 @ 00:00 by Background Daemon) New abnormality on chest x-ray REJI (acute kidney injury) Urgency of micturition Urinary hesitancy Nocturia more than twice per night Benign prostatic hyperplasia with weak urinary stream Epidermal inclusion cyst Atelectasis Fecal incontinence Flank lipoma Asthma-COPD overlap syndrome IBS (irritable bowel syndrome) Umbilical hernia Diabetes Arthritis Back pain GERD (gastroesophageal reflux disease) Bipolar 1 disorder Anxiety Depression Elevated cholesterol Tension pneumothorax, spontaneous Hypertension Asthma Surgical History History of esophagogastroduodenoscopy (EGD) S/P excision of lipoma (02/20/23) History of excision of mass (12/13/22) Hx of colonoscopy Hx of tracheostomy History of lung surgery Hx of hernia repair Family History Mother Stomach cancer Brother Prostate cancer Brother Prostate cancer Social History Household Members: None Housing: Apartment Do you presently have visiting nurse or other home services: No Alcohol intake: current Alcohol intake frequency: a few times a month Alcohol type: beer Patient Tobacco Use Status: Never used Tobacco e-Cigarette/Vaping Use: Never Used Second Hand Smoke Exposure: No Substance Use Type: Marijuana Advance Directives Date on File: 03/28/21 service: No Current occupational status: unemployed Review of Systems Const Denies chills, Denies fatigue, Denies fever(s), Denies frequent falls, Denies weakness, Denies weight gain and Denies weight loss ENT Denies dizziness Card Denies chest pain, Denies leg edema, Denies lightheadedness, Denies palpitations, Denies dyspnea and Denies dyspnea on exertion Resp Denies cough, Denies dyspnea and Denies dyspnea on exertion GI Denies hematochezia Musc Denies abnormal gait, Denies muscle weakness, Denies numbness, Denies radiating pain into limb and Denies tingling Neuro Denies abnormal gait, Denies dizziness, Denies frequent falls, Denies numbness, Denies tingling and Denies weakness Endo Denies fatigue and Denies palpitations Physical Exam Vital Signs: Last Vital Signs Pulse 76 11/18/24 14:45 BP 120/60 11/18/24 14:45 BMI result Body Mass Index 24.8 GENERAL APPEARANCE: in no acute distress, pleasant. NECK: no carotid bruit, no jugular venous distention. SKIN: no suspicious lesions, warm and dry. HEART: no murmurs, regular rate and rhythm. LUNGS: clear to auscultation bilaterally. ABDOMEN: soft, nontender. EXTREMITIES: no edema. PERIPHERAL PULSES: equal. NEUROLOGIC: No gross deficits, AAO X 3 Assessment & Plan Assessment & Plan (1) Right ventricular dilation: Code(s): I51.7 - Cardiomegaly Category: Medical (2) Chest pain: Code(s): R07.9 - Chest pain, unspecified Category: Medical Qualifiers: Chest pain type: unspecified Qualified Code(s): R07.9 - Chest pain, unspecified Plan Pleasant 64 year gentleman who is here for follow-up. He has history of COPD and was complaining of chest discomfort and underwent coronary CTA which did not show any significant coronary disease. On the CTA right ventricular was noticed to be dilated and he underwent echocardiography after that in August of 2024 showing normal LV EF of 55-60 and potential mild dilation of the right ventricle. PA pressures were thought to be normal and no pulmonary hypertension was noted. Clinically he has been stable. No heart failure signs / symptoms. Blood pressure is well controlled. He will continue to follow up with us and we will see him back in 6 months. Thank you for allowing me to participate in the care of your patient. Please feel free to contact me if you have any questions. Coding Level of Care Code Est Pt Level 3 (63871) Diagnoses Right ventricular dilation I51.7 Chest pain, unspecified type R07.9 Chest pain type: unspecified
[2024-11-18 14:45] VITALS: BP 120/60; PULSE 76; BMI 24.8
--- OUTSIDE RECORDS SUMMARY | 2024-11-18 15:17 | XMS_ITS | Clinical Summary ---
Author Organization [employer] Address [address] [facility] [address] [place] [address] Care Team Providers Care Information Technology Consultant Name Role Phone Chun Porras MD Primary Care Provide r Lynsey Madison PharmD Unavailable [phone] Allergies No known active allergies Medications * This document contains information received from the source organization and may not represent a complete record from that organization. Blood Pressure Monitoring (Omron 3 Series BP Monitor) device USE DIRECTED 07/11/20 21 Active tamsulosin (Flomax) 0.4 MG 24 hr capsule Take 0.4 mg by mouth at bedtime. 04/11/20 22 Active Ventolin HFA 108 (90 Base) MCG/ACT inhalerIndication s:Pulmonary emphysema, unspecified emphysema type (CMS/HCC) INHALE 2 PUFFS BY MOUTH EVERY 4 TO 6 HOURS NEEDED 18 g 1 09/15/19 23 Active albuterol (2.5 MG/3ML) 0.083% nebulizer solutionIndicatio ns:Centrilobular emphysema (CMS/HCC) INHALE 1 AMPULE USING A NEBULIZER THREE TIMES DAILY NEEDED 90 mL 3 10/13/19 23 Active Trelegy Ellipta 200-62.5-25 MCG/ACT aerosol powder Inhale 1 puff in the morning. 12/12/19 23 Active montelukast (Singulair) 10 MG tablet 12/18/19 23 Active Blood Glucose Monitoring Suppl (FreeStyle Lite) w/Device kit 1 kit 3 times daily. 1 kit 12/26/19 23 Active meloxicam (Mobic) 15 MG tablet TAKE 1 TABLET BY MOUTH ONCE DAILY NEEDED FOR PAIN 07/18/19 24 Active terazosin (Hytrin) 5 MG capsule Take 5 mg by mouth at bedtime. 07/23/19 24 Active Oral Medication Containers misc USE DIRECTED 05/28/20 23 Active [facility] Gas Relief Ultra Strength 180 MG capsule TOME 1 C PSULA POR V A ORAL CUATRO VECES AL D A AFTER MEALS 02/06/20 24 Active ramelteon (Rozerem) 8 MG tablet Take 8 mg by mouth at bedtime. 02/17/20 24 Active ibuprofen 800 MG tablet Take 800 mg by mouth every 8 (eight) hours if needed. 02/03/20 24 Active cetirizine (ZyrTEC) 10 MG tablet Take 1 tablet (10 mg) by mouth Once per day. 30 tablet 5 06/24/20 24 2024 Active TRUEplus Lancets 33G miscIndications:T ype 2 diabetes mellitus without complication, unspecified whether senior living insulin use (CMS/[facility]) TEST BLOOD SUGAR TWICE DAILY 100 each 5 08/04/19 25 Active amLODIPine (Norvasc) 10 MG tabletIndications :Essential hypertension TAKE 1 TABLET BY MOUTH EVERY MORNING 90 tablet 1 08/13/19 25 Active Aspirin Low Dose 81 MG EC tabletIndications :Type 2 diabetes mellitus without complication, unspecified whether termite treater helper insulin use (CMS/[facility]) TAKE 1 TABLET BY MOUTH EVERY MORNING 90 tablet 1 08/13/19 25 Active omeprazole (PriLOSEC) [address] capsuleIndication s:Gastroesophagea l reflux disease without esophagitis Take 1 capsule (40 mg) by mouth before breakfast and before evening meal. Do not crush or chew. 30 capsule 1 08/13/19 25 Active atorvastatin (Lipitor) 40 MG tabletIndications :Mixed hyperlipidemia TAKE 1 TABLET BY MOUTH EVERY MORNING 90 tablet 3 08/18/19 25 Active ketoconazole (NIZOral) 2 % shampoo Apply topically 2 (two) times a week. 120 mL 3 09/10/19 25 Active metFORMIN XR (Glucophage-XR) 500 MG 24 hr tabletIndications :Type 2 diabetes mellitus without complication, unspecified whether senior living insulin use (CMS/[facility]) TAKE 2 TABLETS BY MOUTH ONCE DAILY IN THE MORNING and TAKE 1 TABLET BY MOUTH AT BEDTIME 270 tablet 1 10/15/19 25 Active metoprolol tartrate (Lopressor) 50 MG tabletIndications :Essential hypertension TAKE 1 TABLET BY MOUTH TWICE DAILY IN THE MORNING AND IN THE EVENING WITH FOOD 180 tablet 10/15/19 25 Active glucose blood (FREESTYLE LITE) test stripIndications: Type 2 diabetes mellitus without complication, unspecified whether termite treater helper insulin use ([facility]) TEST BLOOD SUGAR TWICE DAILY 100 strip 11 10/15/19 25 Active sildenafil (Viagra) 100 MG tabletIndications :Erectile dysfunction, unspecified erectile dysfunction type TAKE 1 TABLET 1 HOUR BEFORE SEXUAL RELATIONS ONCE DAILY NEEDED. 10 tablet 11/07/19 25 Active traMADol (Ultram) 50 MG tabletIndications :Chronic midline low back pain without sciatica Take 1 tablet (50 mg) by mouth every 8 (eight) hours if needed for severe pain. 84 tablet 11/13/19 25 Active sildenafil (Viagra) 100 MG tabletIndications :Erectile dysfunction, unspecified erectile dysfunction type TAKE 1 TABLET 1 HOUR BEFORE SEXUAL RELATIONS ONCE DAILY NEEDED. 10 tablet 10/15/19 25 2024 Discontinued traMADol (Ultram) 50 MG tabletIndications :Chronic midline low back pain without sciatica Take 1 tablet (50 mg) by mouth every 8 (eight) hours if needed for severe pain. 84 tablet 10/15/19 25 2024 Discontinued(R eorder (will not trigger notification to Pharmacy)) Active Problems Problem Noted Date Diagnosed Date Long-term current use of opiate analgesic 2024 Difficulty controlling anger 09/22/2024 History of substance use disorder 09/22/2024 Seborrheic dermatitis 06/24/2024 Odynophagia 11/12/2023 Assessment & [...] a second opinion Will refer to our [facility] Derm clinic Intermittent chest pain 03/07/2023 Assessment & Plan (09/10/2024 9:37 AM EST): Pt with c/o intermittent chest discomfort [...] cm at the base of diastole. Patient last seen by Cardiology 08/12/2024 Dr Hero Shukla. He stated that pt was seen for chest pain and stress testing followed by coronary CTA. Coronary CTA has shown minimal coronary disease. He has CT scan also showed right ventricular dilatation. He recommended an echocardiography to assess the right ventricle and PA pressures. He has known COPD and is possible that he has underlying pulmonary hypertension leading to RV dysfunction. He will continue to follow with Cardiology Assessment & Plan (06/09/2024 2:20 PM EST): [...] AM EDT): Patient previously seen at our [facility] by Dr Praveen Wagoner with a [...] EDT): Patient previously seen here at our [facility] by Dr Praveen Wagoner with a [...] EDT): Patient previously seen here at our [facility] by Dr Praveen Wagoner with a [...] by Ирина SWENSON and was referred to Information Lead Dr Meyer for Pulmonary clearance. Pt was seen and has already been scheduled for Surgery November Gastroesophageal reflux disease without esophagi tis 11/20/2022 Assessment & Plan (09/10/2024 9:33 AM EST): Patient here for a follow up On Omeprazole, BID Dietary recommendations were discussed Seen by GI , s/p EGD107/21/2023 that showed: erosive gastritis, schatzki ring, possible barretts ,patulous GEJ Diagnosed with H.pilory, finishing the second week. Last seen 07/23/2024 Assessment & Plan (06/09/2024 2:13 PM EST): [...] (Updated 08/22/2023) - Patient transferred medications from [facility] to [facility] and was not pleased with results. He has now transferred back but would like to start medboxes again. Medication review completed with patient today. Assessment & Plan (09/10/2024 11:42 AM EST): PSA 12/21/2022 Normal Colonoscopy: 11/29/2014 Tubular adenoma. Pt had a repeat in 07/27 2020 showed internal Hemorrhoids, 5 yr f/u recommended Dr Stephanie Hernandez Assessment & Plan (08/22/2023 11:44 AM EST): [...] his symptoms have resolved Generalized anxiety disorder with panic attacks 07/01/2022 Assessment & Plan (09/10/2024 11:40 AM EST): Pt seeing Dr. Hayes and Sumeet Damian Pt taking his medications as prescribed by Dr Hayes On a previous visit he admitted to buying Klonopin [address], I advised him to discuss with his psychiatrist. Back then he told me he had been buying it for the past 9 years. Gabapentin 400 mg caps BID Assessment & Plan (12/20/2022 10:55 AM EDT): [...] BG generally well controlled Assessment & Plan (09/10/2024 11:31 AM EST): Pt here for Diabetes f/u control on a regimen of: Metformin ER 500 mg 2 tabs in am and 1 tab at PM Hgb A1c 09/10/2024: 6.3 Eye exam done Microalbumin ordered, not yet done Pt not on an OTONIEL inhibitor/ARB Foot check today is risk of: zero Pt reports compliance with Asa 81 mg po daily Plan: Continue current regimen Pt advised to: adhere to diabetic diet check your blood sugars regularly check your feet on a daily basis. f/u 4 months Assessment & Plan (06/09/2024 2:10 PM EST): [...] Eye Exam Plan: - Referral sent for [facility] Optometry - Continue with current therapy [...] L3-L4. Milder degenerative changes at remaining levels. [facility] gave him a steroid injection back in [...] i\used to be under the care of [facility], last seen last 03/09/2019 Back in 06/20/2017 [...] he tells me he was referref by [facility]. I asked him to find out so [...] had surgery completed 12/2022. Assessment & Plan (09/10/2024 9:38 AM EST): Patient here for a f/u bloop pressure controlled He is on a regimen of: Amlodipine 10 mg po daily and Metoprolol 50 mg po BID Plan: Continue current regimen BMP Lab Results Component Value Date NA 139 09/08/2024 NA 139 08/09/2024 K 4.1 09/08/2024 K 3.8 08/09/2024 CL 109 (H) 09/08/2024 CL 107 08/09/2024 BUN 19 (H) 09/08/2024 BUN 21 (H) 08/09/2024 CREATININE 0.79 09/08/2024 CREATININE 0.81 08/09/2024 were wnl patient advised to adhere to a low sodium diet, encouraged about medication compliance recheck in 4 months Assessment & Plan (06/09/2024 2:04 PM EST): [...] f/u exercise stress test. Assessment & Plan (09/10/2024 9:40 AM EST): Here for a f/u Pt has Hx of multiple spontaneous Pneumothoraxes, treated with Chest tubes in the past. Admitted to [facility] from 12/18-06/2014 because of spontaneous right pneumothorax. Treated with chest tube, and had bronchoscopy with right parietal pleurectomy, multiple wedge resections of blebs of right upper and middle lobes. kellen 1 antitrypsin was normal Pt was being followed by pulmonology at [facility], he now tells me the administration assistant left and they did not assign him [...] aspiration, findings that can be clinically correlated. I have recommended to continue with his inhalers Pt was referred to Pulmonology with Dr. Meyer, he was seen last 02/21/[address] 08/2024 showed: Impression: There are regions of scarring, atelectasis and paraseptal emphysema No definite acute process. A few tiny nodules are present bilaterally, not meeting size criteria to warrant CT follow-up. If the patient is considered high risk for malignancy, a [address] could be considered. PFT showed severe COPD Assessment & Plan (06/09/2024 2:04 PM EST): Here for a f/u Pt has Hx of multiple spontaneous Pneumothoraxes, treated with Chest tubes in the past. Admitted to [facility] from 12/18-06/2014 because of spontaneous right pneumothorax. Treated with chest tube, and had bronchoscopy with right parietal pleurectomy, multiple wedge resections of blebs of right upper and middle lobes. kellen 1 antitrypsin was normal Pt was being followed by pulmonology at [facility], he now tells me the administration assistant left and they did not assign him [...] Chest tubes in the past. Admitted to [facility] from 12/18-06/2014 because of spontaneous right pneumothorax. Treated with chest tube, and had bronchoscopy with right parietal pleurectomy, multiple wedge resections of blebs of right upper and middle lobes. kellen 1 antitrypsin was normal Pt was being followed by pulmonology at [facility], he now tells me the administration assistant left and they did not assign him [...] Chest tubes in the past. Admitted to [facility] from 12/18-06/2014 because of spontaneous right pneumothorax. Treated with chest tube, and had bronchoscopy with right parietal pleurectomy, multiple wedge resections of blebs of right upper and middle lobes. kellen 1 antitrypsin was normal Pt was being followed by pulmonology at [facility], he now tells me the administration assistant left and they did not assign him [...] Chest tubes in the past. Admitted to [facility] from 12/18-06/2014 because of spontaneous right pneumothorax. Treated with chest tube, and had bronchoscopy with right parietal pleurectomy, multiple wedge resections of blebs of right upper and middle lobes. kellen 1 antitrypsin was normal Pt was being followed by pulmonology at [facility], he now tells me the administration assistant left and they did not assign him [...] with moderate depression. Under the care of [facility]. Currently on a regimen of: Clonidine 0.1 mg po qhs Pt denies Suicidal ideation at the moment. Patient denies any suicidal ideation or thoughts, Patient has crisis numbers and knows to use them if needed. Assessment & Plan (11/20/2022 1:22 PM EDT): Pt with moderate depression. Under the care of [facility]. Currently on a regimen of: Clonidine 0.1 mg po qhs Pt denies Suicidal ideation at the moment. Patient denies any suicidal ideation or thoughts, Patient has crisis numbers and knows to use them if needed. Encounters * This document contains information received from the source organization and may not represent a complete record from that organization. Date Type Department Care Team Description 11/12/2024 Refill [facility] [address] [place] [address] Chun Porras MD Chronic midline low back pain without sciatica 11/12/2024 Refill [facility] [address] [facility] [place] [address] Chun Porras MD Chronic midline low back pain without sciatica 11/12/2024 Refill [facility] [address] [place] [address] Maritza Mejia RN Chronic midline low back pain without sciatica 11/12/2024 Telephone [facility] [address] [place] [address] Chun Porras MD Med Refill 11/06/2024 10:30 AM EDT Clinical Support [facility] [address] [place] [address] Maritza Mejia RN Chronic midline low back pain without sciatica (Primary Dx); Long-term current use of opiate analgesic 11/06/2024 Refill [facility] [address] [place] [address] Chun Porras MD Erectile dysfunction, unspecified erectile dysfunction type; Chronic midline low back pain without sciatica 11/06/2024 Travel 10/29/2024 Patient Outreach [facility] [address] [place] [address] [facility] Supports 10/13/2024 Refill [facility] [address] [place] [address] Chun Porras MD Erectile dysfunction, unspecified erectile dysfunction type; Chronic midline low back pain without sciatica 10/12/2024 Refill [facility] [address] [place] [address] Lynsey Madison, PharmD Type 2 diabetes mellitus without complication, unspecified whether termite treater helper insulin use ([facility]) 10/12/2024 Refill [facility] [address] [place] [address] Chun Porras MD Essential hypertension; Type 2 diabetes mellitus without complication, unspecified whether termite treater helper insulin use ([facility]) 10/09/2024 Refill [facility] [address] [place] [address] Lynsey Madison PharmD Type 2 diabetes mellitus without complication, unspecified whether senior living insulin use ([facility]) 10/04/2024 Orders Only [facility] External Provider, [facility] 09/23/2024 Travel 09/22/2024 10:40 AM EDT [facility] [address] [address] Lance Kothari MD H/O sinus bradycardia (Primary Dx); Allergy status to other drugs, medicaments and biological substances 09/22/2024 Telephone [facility] [address] [place] [address] Vicki Abdi, date night caregiver Question 09/22/2024 Telephone [facility] [address] [address] Lance Kothari MD 09/17/2024 Refill [facility] [address] [place] [address] Chun Porras MD Erectile dysfunction, unspecified erectile dysfunction type 09/10/2024 11:30 AM EST Office Visit [facility] [address] [place] [address] Chun Porras MD Type 2 diabetes mellitus without complication, without long-term current use of insulin ([facility]) (Primary Dx); Essential hypertension; Gastroesophageal reflux disease without esophagitis; Intermittent chest pain; Pulmonary emphysema, unspecified emphysema type ([facility]); Generalized anxiety disorder; Preventative health care; Chronic midline low back pain without sciatica 09/10/2024 Refill [facility] [address], [place] [phone] Chun Porras MD Chronic midline low back pain without sciatica 09/10/2024 Travel 09/10/2024 Telephone [facility] [address] [place] [address] Chun Porras MD Chart Prep Tele 08/28/2024 Patient Outreach [address] [address] Chun Porras MD SDOH Concerns (CHW Heather Claire, VIVIAN SDOH ) 08/28/2024 Patient Outreach [address] [address] Chun Porras MD Pre-visit Planning (SDOH Screening positive and Tobacco screening negative) 08/26/[address] [address] Chun Porras MD Chart Prep 08/21/2024 10:30 AM EST Clinical Support [address] [address] Maritza Mejia RN Chronic midline low back pain without sciatica 08/21/2024 Travel from Last 3 Months Immunizations Name Administration Dates Next Due Influenza injectable quadriv alent IIV4 with preservative 05/03/2016,04/26/2015 Influenza injectable quadriv alent preservative free 04/10/2022,06/13/2021,05/26/2019,07/03,06/20/2017 Influenza, High Dose Seasona l, Preservative Free 06/09/2024 Influenza, IIV3, injectable 06/14/2014 Moderna Covid-19 Vaccine 12+ 10/20/2020,09/23/19 21 Pfizer Covid-19 Vaccine 12+ 06/09/2024, Pfizer Covid-19 [...] Answer Date Recorded Patient Health Questionnaire-9 Score 19 09/22/2024 Patient Health Questionnaire-9 Score 19 09/22/2024 Last PHQ-9: Questionnaire Data Not on file 0 09/22/2024 Housing Stability Answer Date Recorded What is your housing situation today? I have angelica pederson 09/10/[address] you li ve. Do you have problems with any of the following? None of the above 09/10/2024 Food Insecurity Answer Date Recorded Within the [...] Answer Date Recorded Patient Health Questionnaire-2 Score 6 09/22/2024 Internet Access Answer Date Recorded Internet Access Q1 No 09/10/2024 Internet Access Q2 I do not want or need it 08/16 Sex and Gender Information Value Date Recorded Sex Assigned at Male 05/14/2022 10:26 AM EDT Legal Sex Male 10:26 AM EDT Gender Identity Male 05/14/2022 10:26 AM EDT Sexual Orientation Straight 05/14/2022 10 :26 AM EDT Last Filed Vital Signs Vital Sign Reading Time Taken Comments Blood Pressure 118/73 09/22/2024 10:36 AM EDT Pulse 67 09/22/2024 10:36 AM EDT Temperature 36.1 ??C (97 ??F) 09/22/2024 10:36 AM EDT Respiratory Rate 18 09/22/2024 10:36 AM EDT Oxygen Saturation 97% 09/22/2024 10:36 AM EDT Inhaled Oxygen Concentration - - Weight 79.7 kg (175 lb 9.6 oz) 09/10/2024 11:19 AM EST Height 177.8 cm (5' 10 ) 09/10/2024 11:19 AM EST Body Mass Index 25.2 09/10/2024 11:19 AM EST Plan of Treatment Upcoming Encounters Date Type Department Care Team (Late st Contact Info) Description 12/10/2024 1:15 PM EDT Office Visit [facility] [address] [place] [phone] Chun Porras MD [address] [place] [address] 02/05/2025 11:00 AM EDT Clinical Support [facility] [address] [place] [phone] Maritza Mejia, SANDRA [address] [place] [address] Health Maintenance Due Date Last Done Comments CT Colonography 1960 FIT DNA/Cologuard 1960 FIT 1960 FOBT 1960 Sigmoidoscopy 1958 Diabetes: Foot Exam 1968 Diabetes: Urine Protein Screening 1977 RSV Patients and Patients Aged 60 years or older (1 - Risk 60-74 years 1-dose series) 2018 Lipid Panel 11/10/2023 11/09/2022, 0501/2022, 05/26/2020 Diabetes: Hemoglobin A1C 03/10/2025 025, 06/09/2024, 02/04/2024, Additional history exists Alcohol/Substance Use Screening 06/09/2025 06/09/2024 Colonoscopy 07/27/2025 07/27/2020 Colorectal Cancer Screening 07/27/2025 SDOH Screening 09/10/2025 09/10/2024 Depression Screening 09/22/2025 09/22/2024, 03/11/20 25 Tobacco Screening 09/22/2025 09/22/2024 Eye Exam 01/22/2026 01/23/2024, 01/12, 01/23/2024, Additional [...] Pressure < 140/90 Blood Pressure Essential hypertension 118/73(2024 10:36 AM EDT) No Lynsey Madison, Sherwin Procedures Procedure Name Priority Date/Time Associated Diagnosis Comments POCT LORENA-14 URINE DRUG SCREEN Routine 11/06/2024 10:29 AM EDT Long-term current use of opiate analgesic Chronic midline low back pain without sciatica HIGH SENSITIVITY TROPONIN I Routine 10/04/2024 5:46 PM EDT XR CHEST 2 VIEWS Routine 10/04/2024 5:33 PM EDT ECG 12-LEAD Routine 09/22/2024 12:52 PM EDT H/O sinus bradycardia POCT GLYCATED HEMOGLOBIN, TOTAL Routine 09/10/2024 11:29 AM EST Type 2 diabetes mellitus without complication, without long-term current use of insulin (CMS/HCC) POCT GLUCOSE Routine 09/10/2024 11:26 AM EST Type 2 diabetes mellitus without complication, without long-term current use of insulin (CMS/HCC) HIGH SENSITIVITY TROPONIN I Routine 09/08/2024 2:45 [...] Recently Relevant to Health Maintenance Results * POCT LORENA-14 Urine Drug Screen (11/06/2024 10:29 AM EDT) Only the most recent of2 resultswithin the time period is included. THC Positive Urine Urine specimen obtained by clean catch procedure / Unknown 11/06/2024 10:29 AM EDT Narrative Maritza Mejia RN - 11/06/2024 10:29 AM EDT .UTOX cup Lot#[id number] Exp. 03/03/26 Internal Pass Control Chun Mckinley MD POINT OF CARE TEST EN TER/EDIT ORDERABLES Final Result * High Sensitivity Troponin I (10/04/2024 5:46 PM EDT) Only the most recent of2 resultswithin the time period is included. [facility] TROPONIN I HIGH SENSITIVITY <2.7 <3.5 - 35.0 ng/L [facility] Comment:The Wheeler high sens itivity Troponin-I results should beused in conjunction with other diagnostic information suchas ECG, clinical observations and information, and patientsymptoms to aid in the diagnosis of [place]. 10/04/2024 5:46 PM EDT 10/04/2024 5:50 PM EDT us Generic External Data Provider LAB BLOOD ORDERAB LES Final Result Performing Organization Address City/State/[facility] Co de Phone Number [facility] [address] [place] [address] [phone] * XR Chest 2 Views (10/04/2024 5:33 PM EDT) Only the most recent of2 resultswithin the time period is included. Anatomical Region Laterality Modality Chest Radiographic Brenna ging 10/04/2024 5:33 PM EDT Narrative 10/04/2024 5:35 PM EDT ? [facility] ?[address] ?[place] [address] ?XRay Report ? Signed ? Patient: Garcia Vargas,Francisco J ?MR#: [id number] ?? [id number] ? : 1960 ?Acct:[id number] ? Age/Sex: 64 / M ?ADM Date: 03/23/25 ? Loc: HO.ED ? Attending Dr: ? Ordering Physician: Slim Andrea MD ?? Date of Service: 10/04/24 ?? Procedure(s): XR chest 2V ?? Accession Number(s): [id number] ? cc: Chun Michel MD; Slim Andrea MD ? CLINICAL HISTORY: chest pain ? 2 view chest x-ray ? Comparison: CR/FL/SR - XR CHEST 2V - 09/08/24 14:55 EST ? Findings: ?? There are linear opacities within the right lower lung. Left lung is ?? clear. No consolidation or pleural effusion. ?? Normal size heart. ?? Chronic deformity of multiple right-sided ribs. No acute fracture. ? IMPRESSION: ?? Mild linear atelectasis and/or scarring within the right lower lung. ? This document has been electronically signed by: Mary Cevallos MD on ?? 10/04/2024 17:33:25 ? Dictated By: ?Mary Cevallos MD ? Signed By: ?<Electronically signed by Mary Cevallos MD in OV> ? 10/04/24 1734 ? DD/ 1733 ? TD/TT: 10/04/24 1733 ? Preventative Maintenance Technician: ? Procedure Note Sagrario, Image - 10/04/2024 [place] [address] XRay Report Signed Patient: Johny Romeo#: M [id number] : 8Acct:[id number] Age/Sex: 64 / MADM Date: 10/04/24 Loc: HO.ED Attending Dr: Ordering Physician: Slim Andrea MD Date of Service: 10/04/24 Procedure(s): XR chest 2V Accession Number(s): [id number] cc: Chun Michel MD; Slim Andrea MD CLINICAL HISTORY: chest pain 2 view chest x-ray Comparison: CR/FL/SR - XR CHEST 2V - 09/08/24 14:55 EST Findings: There are linear opacities within the right lower lung. Left lung is clear. No consolidation or pleural effusion. Normal size heart. Chronic deformity of multiple right-sided ribs. No acute fracture. IMPRESSION: Mild linear atelectasis and/or scarring within the right lower lung. This document has been electronically signed by: Mary Cevallos MD on 10/04/2024 17:33:25 Dictated By: Mary Cevallos MD Signed By: <Electronically signed by Mary Cevallos MD in OV> 10/04/24 173 DD/ 32 TD/TT: 10/04/241732 Preventative Maintenance Technician: [facility] External Provider IMG XR PROCEDURES Edited Result - Final * (ABNORMAL) POCT HGB A1C (09/10/2024 11:29 AM EST) Hemoglobin A1C 6.3(A) 4.0 - 6.0 % QC Media Lot # [id number] Lot# Expiration Date Blood 09/10/2024 11:2 9 AM EST Chun Mckinley MD POINT OF CARE TEST EN TER/EDIT ORDERABLES Final Result * POCT Glucose (09/10/2024 11:26 AM EST) Glucose Blood, POC 154 60 - 200 mg/dL QC Media Lot # [id number] Lot# Expiration Date Blood Capillary blood specimen / Unknown 09/10/2024 11:26 AM EST Chun Mckinley MD POINT OF CARE TEST EN TER/EDIT ORDERABLES Final Result * (ABNORMAL) CBC auto differential (09/08/2024 2:45 PM EST) White Blood Count 8.5 4.8 - 10.8 X10*3/uL [facility] Red Blood Count 4.86 4.60 - 5.80 X10*6/uL [facility] Hemoglobin 14.3 14.0 - 18.0 g/dl [facility] Hematocrit 41.8(L) 42.0 - 52.0 % [facility] Mean Corpuscular Volume 86.0 80.0 - 98.0 fL [facility] Mean Corpuscular Hemoglobin 29.4 27.0 - 33.0 pg [facility] Mean Corpuscular HGB Conc 34.2 31.0 - 36.0 g/dl [facility] Red Cell Distribution Width 12.7 11.0 - 16.0 % [facility] Platelet Count 222 160 - 400 X10*3/uL [facility] Mean Platelet Volume 9.7 9.4 - 12.4 fL [facility] Neutrophils Percent Auto 64.9 45 - 73 % [facility] Imm Gran Pct Auto 0.1 0.0 - 0.4 % [facility] Lymphocytes Percent Auto 18.8(L) 20 - 40 % [facility] Monocytes Percent Auto 10.6 2 - 11 % [facility] Eosinophils Percent Auto 4.9(H) 0 - 4 % [facility] Basophils Percent Auto 0.7 0 - 2 % [facility] NRBC Pct Auto 0.0 0.0 - 0.2 /100WBC [facility] Neutrophils Absolute Auto 5.5 2.0 - 8.3 x10*3/uL [facility] Imm Gran Abs Auto 0.01 0.00 - 0.03 X10*3/uL [facility] Lymphocytes Absolute Auto 1.6 1.2 - 4.9 X10*3/uL [facility] Monocytes Absolute Auto 0.9 0.1 - 1.2 X10*3/uL [facility] Eosinophils Absolute Auto 0.4 0.0 - 0.4 X10*3/uL [facility] Basophils Absolute Auto 0.1 0.0 - 0.2 X10*3/uL [facility] NRBC Abs Auto 0.000 0.0 - 0.012 X10*3/uL [facility] 09/08/2024 2:45 PM EST 09/08/2024 2:50 PM EST us Generic External Data Provider LAB BLOOD ORDERAB LES Final Result [facility] [address] [place] [address] [phone] * (ABNORMAL) Prothrombin Time-INR (09/08/2024 2:45 PM EST) Pathologist [facility] Prothrombin Time 10.8(L) 10.9 - 12.4 SEC [facility] INTERNATIONAL NORM RATIO 0.9 0.9 - 1.1 [facility] Comment:INTERNATIONAL NORMAL IZED RATIO (INR) [...] 2:45 PM EST 09/08/2024 2:50 PM EST Generic External Data Provider LAB BLOOD ORDERAB LES Final Result [facility] [address] [place] [phone] * (ABNORMAL) Comprehensive Metabolic Panel (09/08/2024 2:45 PM EST) [facility] Sodium 139 135 - 145 mmol/L [facility] Potassium 4.1 3.3 - 5.1 mmol/L [facility] Chloride 109(H) 96 - 108 mmol/L [facility] Carbon Dioxide 22 22 - 29 mmol/L [facility] Anion Gap 12 12 - 20 [facility] Urea Nitrogen (BUN) 19(H) 9 - 16 mg/dL [facility] Creatinine, Serum 0.79 0.5 - 1.4 mg/dL [facility] Creatinine Clr Calc Pharmacy 94.9 [facility] Comment:eGFR (calculated fro m the MDRD study equation) and eCrCl(calculated from the Cockcroft-Gault equation) are based ondifferent parameters and may not yield comparable results.If eCrCl result is absurd, please check patient'sheight/weight. Estimated Glomerular Filt Rate >60 [facility] Comment:Chronic Kidney Disea se: Estimated GFR < 60 mL/min/1.41e8Whfanm Kidney Disease: Estimated GFR < 15 mL/min/1.73m2 Glucose 123(H) 60 - 115 mg/dL [facility] Calcium 9.3 8.4 - 10.2 mg/dL [facility] Bilirubin, Total 0.3 0.0 - 1.0 mg/dL [facility] Aspartate Amino Transferase 27 5 - 37 U/L [facility] Alanine Aminotransferase 30 0 - 40 U/L [facility] Total Protein 7.6 6.5 - 8.0 g/dL [facility] Albumin Level 4.2 3.5 - 5.0 g/dL [facility] Alkaline Phosphatase 90 39 - 117 U/L [facility] 09/08/2024 2:45 PM EST 09/08/2024 2:50 PM EST us Generic External Data Provider LAB BLOOD ORDERAB LES Final Result Performing Organization Address City/State/[facility] Co de Phone Number [facility] [address] [place] [address] [phone] * CT Chest w/o Contrast (08/26/2024 10:43 AM EST) Anatomical Region Laterality Modality Body, Chest Computed Tomogra phy 08/26/2024 10:4 3 AM EST Narrative 08/26/2024 10:44 AM EST ? [facility] ?[address] [facility] ?[place] [address] ? CT Scan Report ? Signed ? Patient: Garcia Vargas,Francisco J ?MR#: M ?? [id number] ? : 1960 ?Acct:[id number] ? Age/Sex: 64 / M ?ADM Date: 08/25/25 ? Loc: HO.CT ? Attending Dr: Shane Meyer MD ? Ordering Physician: Shane Meyer MD ?? Date of Service: 08/25/24 ?? Procedure(s): CT chest wo IV con ?? Accession Number(s): [id number] ? cc: Chun Michel MD; Shane Meyer MD ? Report Number: ?? [id number]: Total DLP = ??153.00 mGy-cm ? CLINICAL [...] DD/ 1043 ? TD/TT: 08/26/24 1043 ? Preventative Maintenance Technician: ? Procedure Note Sagrario, Image - 08/26/2024 [place] [address] [place] [address] CT Scan Report Signed Patient: Radha Johny Vargas#: M [id number] : 8Acct:[id number] Age/Sex: 64 / MADM Date: 08/25/24 Loc: HO.CT Attending Dr: Shane Meyer MD Ordering Physician: Shane Meyer MD Date of Service: 08/25/24 Procedure(s): CT chest wo IV con Accession Number(s): [id number] cc: Chun Michel MD; Shane Meyer MD Report Number: [id number]: Total DLP = 153.00 mGy-cm CLINICAL HISTORY: [...] MD on 08/26/2024 10:43:58 Dictated By: Narinder Ellsowrth MD Signed By: <Electronically signed by Narinder Ellsworth MD in OV> 08/26/24 1044 DD/ 1043 TD/TT: 08/26/24 104 Preventative Maintenance Technician: [facility] External Provider IMG CT PROCEDURES Final Result * Hepatitis C Antibody with Reflex to HCV, RNA, Quantitative, Real-Time PCR (12/20/2022 10:56 AM EDT) Pathologist [facility] Hepatitis C Antibody NON-REACT FABRICIO NON-REACT FABRICIO [facility] [facility] Index 0.13 <1.00 [employer] [place] [employer] Comment: HCV antibody was non-reactive. There is no laboratory evidence of HCV infection. In most cases, no further action is required. However, if recent HCV exposure is suspected, a test for HCV RNA (test code 70643) is suggested. For additional information please refer to http://Snaptiva.GAIN Fitness/faq/NRK86y8 (This link is being provided for informational/ educational purposes only.) Blood Venous blood specimen / Unknown 12/20/2022 10:56 AM EDT 12/20/2022 10:56 AM EDT Narrative [facility] - 12/21/2022 5:38 AM EDT FASTING:YES FASTING: YES Chun Mckinley MD LAB BLOOD ORDERABLES Final Result [facility] [address], [place] [address] [facility] [place] [employer] [address] [place] [address] * Lipid Panel, Standard (11/09/2022 11:21 AM EDT) [facility] Cholesterol, Total 138 <200 mg/dL [facility] HDL Cholesterol 54 > OR = 40 mg/dL [employer] [facility] [place] [employer] Triglycerides 131 <150 mg/dL [facility] [facility] LDL Cholesterol 63 mg/dL (calc) [employer] Comment: Reference range: <100 Desirable range <100 mg/dL for primary prevention; ?? <70 mg/dL for patients with CHD or diabetic patients with > or = 2 CHD risk factors. LDL-C is now calculated using the Trever calculation, which is a validated novel method providing better accuracy than the Friedewald equation in the estimation of LDL-C. Manav ERICKSON et al. DIONICIO. 2013;310(19): 0361-6739 (http://education.SA Ignite/faq/MRG050) Chol/HDLC Ratio 2.6 <5.0 (calc) [employer] Non-HDL Cholesterol 84 <130 mg/dL (calc) [employer] Comment: For patients with diabetes plus 1 major ASCVD risk factor, treating to a non-HDL-C goal of <100 mg/dL (LDL-C of <70 mg/dL) is considered a therapeutic option. Blood Venous blood specimen / Unknown 11/09/2022 11:21 AM EDT 11/09/2022 11:21 AM EDT Narrative [facility] - 11/10/2022 8:06 AM EDT FASTING:NO FASTING: NO Colleen Lou PRETZEL COOKER LAB BLOOD ORDERABLES Final Resu lt [facility] [address], [place] [address] [employer] [address] [place] [address] * Colonoscopy (07/27/2020) Colonoscopy Normal Normal 07/27/2020 Blossom Spencer - 07/27/2020 2:25 PM EST Recommended 5 year follow up ( see GI note 08/17/2020) Historical Provider HEALTH MAINTENANCE Edited Result - Final from Last 3 Months or Most Recently Relevant to Health Maintenance Insurance [facility] INTERMEDIATE OPTIONS (O D-SNP) Care Teams Information Technology Consultant Relationship Specialty Start Date End Date Chun Porras MD [address] [place] [address] PCP - General Internal Medicine 05/26/14 Lynsey Madison, MichaelD [address] [place] [address] Pharmacist Internal Medicine 09/26/23
--- OUTSIDE RECORDS SUMMARY | 2024-11-18 15:17 | XMS_ITS | Encounter Summary ---
Author Organization [employer] Address [address] [place] [address] Care Team Providers Care Caser Up Name Role Phone Chun Porras MD Primary Care Provide r Lynsey [place] PharmD Unavailable [phone] Reason for Visit * Reason Comments Med Refill Encounter Details Date Type Department Care Team ([facility] st Contact Info) Description 02/17/2024 Refill [facility] [address] [place] [address] Chun Porras MD [address] [place] [address] Chronic midline low back pain without sciatica [...] housing situation today? I have angelica sing 11/04/[address] you li [...] Description 12/10/2024 1:15 PM EDT Office Visit [facility] [address] [place] [address] Chun Porras MD [address] [place] [address] 02/05/2025 11:00 AM EDT Clinical Support [address] [address] Maritza Mejia, SANDRA [address] [place] [address] documented as of this encounter Goals Goal Patient Goal Type Associated Problems Recent Progress Patient-Stated? Author Blood Pressure < 140/90 Blood Pressure Essential hypertension 118/73(2024 10:36 AM EDT) No Lynsey [place], PharmD documented as of this encounter Visit Diagnoses Diagnosis Chronic midline low back pain without sciatica documented in this encounter Additional Health Concerns Assessment Noted Time PHQ-9 Depression Total Score: 1 11/12/19 24 11:09 AM EDT documented as of this encounter Care Teams Caser Up Relationship Specialty Start Date End Date Chun Porras MD [address] [place] [address] PCP - General Internal Medicine 05/26/14 Lynsey Madison, MichaelD [address] [place] [address] Pharmacist Internal Medicine 09/26/23 documented as of this encounter
--- OUTSIDE RECORDS SUMMARY | 2024-11-18 15:17 | XMS_ITS | Clinical Summary ---
Author Organization [facility] Address [address] [address] Care Team Providers Care Campaign Analyst Name Role Phone Chun Brennan MD Primary [...] Colorectal Cancer Screening: Sigmoidoscopy 2007 Pneumococcal Vaccine: 50+ Ye ars (1 of 1 - PCV) 2008 Influenza Vaccine (Season Ended) 2025 Hepatitis B Vaccine Aged Out No longe r eligible based on patient's age to complete this topic Insurance [address] [place] [id number] [facility] [address] [place] [id number] [address] [place] [phone] Care Teams Campaign Analyst Relationship Specialty Start Date End Date Chun Brennan MD PCP - General 07/25/20
--- OUTSIDE RECORDS SUMMARY | 2024-11-18 15:17 | XMS_ITS | Encounter Summary ---
Author Organization [employer] Address [address] [place] [address] Care Team Providers Care Water/Wastewater Project Manager Name Role Phone Chun Porras MD Primary Care Provide r Lynsey [place] PharmD Unavailable [phone] Reason for Visit * Reason Comments Med Refill Encounter Details Date Type Department Care Team ([facility] st Contact Info) Description 04/28/2024 Refill [facility] [address] [place] [address] Lynsey [place], PharmD [address] [place] [address] Type 2 diabetes mellitus without complication, unspecified whether custodial insulin use ([facility]) Social History Tobacco Use Types Packs/Day [...] Description 12/10/2024 1:15 PM EDT Office Visit [facility] [address] [place] [address] Chun Porras MD [address] [place] [address] 02/05/2025 11:00 AM EDT Clinical Support [facility] [address] [place] [address] Maritza Mejia, SANDRA [address] [place] [address] documented as of this encounter Goals Goal Patient Goal Type Associated Problems Recent Progress Patient-Stated? Author Blood Pressure < 140/90 Blood Pressure Essential hypertension 118/73(2024 10:36 AM EDT) No Lynsey Madison, Sherwin documented as of this encounter Visit Diagnoses Diagnosis Type 2 diabetes mellitus without complication, unspecified whether custodial insulin use ([facility]) documented in this encounter Additional Health Concerns Assessment Noted Time PHQ-9 Depression Total Score: 1 11/12/19 24 11:09 AM EDT documented as of this encounter Care Teams Water/Wastewater Project Manager Relationship Specialty Start Date End Date Chun Porras MD [address] [place] [address] PCP - General Internal Medicine 05/26/14 Lynsey [place] PharmD [address] [place] [address] Pharmacist Internal Medicine 09/26/23 documented as of this encounter
--- OUTSIDE RECORDS SUMMARY | 2024-11-18 15:18 | XMS_ITS | Encounter Summary ---
Author Organization [employer] Address [address] [place] [address] Care Team Providers Care Fine Grade Bulldozer Operator Name Role Phone Chun Porras MD Primary Care Provide r Lynsey [place] PharmD Unavailable [phone] Encounter Details Date Type Department Care Team (Late Contact Info) Description 11/14/2022 Abstract [facility] [address] [place] [address] Chun Porras MD [address] [place] [address] Social History Tobacco Use Types Packs/Day Years [...] Department Care Team (Late Contact Info) Description 12/10/2024 1:15 PM EDT Office Visit [facility] [place] [address] [place] [address] 02/05/2025 11:00 AM EDT Clinical Support [facility] [place] [address] Maritza Mejia, SANDRA [address] [facility] [facility] [place] [address] documented as of this encounter Procedures Procedure Name Priority Date/Time Associated Diagnosis Comments COLONOSCOPY Routine 07/27/2020 documented in this encounter Results * Colonoscopy (07/27/2020) Colonoscopy Normal Normal 07/27/2020 Narrative Blossom Hinkle - 07/27/2020 2:25 PM EST Recommended 5 year follow up ( see GI note 08/17/2020) us Historical Provider [facility] Edited Result - Final documented in this encounter Visit Diagnoses Not on filedocumented in this encounter Additional Health Concerns Assessment Noted Time PHQ-9 Depression Total Score: 3 07/06/20 22 11:00 AM EST documented as of this encounter Care Teams Fine Grade Bulldozer Operator Relationship Specialty Start Date End [place] [address] PCP - General Internal Medicine 05/26/14 [place] [address] Pharmacist Internal Medicine 09/26/23 documented as of this encounter
--- OUTSIDE RECORDS SUMMARY | 2024-11-18 15:18 | XMS_ITS | Encounter Summary ---
Author Organization [employer] Address [address] [place] [address] Care Team Providers Care Guide Plant Name Role Phone Chun Porras MD Primary Care Provide r Lynsey [place] PharmD Unavailable [phone] Reason for Visit * Reason Comments Med Refill Encounter Details Date Type Department Care Team ([facility] st Contact Info) Description 04/23/2023 Refill [facility] [address] [place] [address] Chun Porras MD [address] [place] [address] Benign prostatic hyperplasia with lower urinary tract [...] Description 12/10/2024 1:15 PM EDT Office Visit [facility] [address] [place] [address] Chun Porras MD [address] [place] [address] 02/05/2025 11:00 AM EDT Clinical Support [facility] [address] [place] [address] Maritza Mejia RN [address] [place] [address] documented as of this encounter Visit Diagnoses Diagnosis Benign prostatic hyperplasia with lower urinary tract symptoms documented in this encounter Additional Health Concerns Assessment Noted Time PHQ-9 Depression Total Score: 3 07/06/20 22 11:00 AM EST documented as of this encounter Care Teams Guide Plant Relationship Specialty Start Date End Date Chun Porras MD [address] [place] [address] PCP - General Internal Medicine 05/26/14 Lynsey Madison PharmD [address] [place] [address] Pharmacist Internal Medicine 09/26/23 documented as of this encounter
--- OUTSIDE RECORDS SUMMARY | 2024-11-18 15:18 | XMS_ITS | Encounter Summary ---
Author Organization [employer] Address [address] [place] [address] Care Team Providers Care Industrial Real Estate Agent Name Role Phone Chun Porras MD Primary Care Provide r Lynsey [place] PharmD Unavailable [phone] Reason for Visit * Reason Comments Med Refill Encounter Details Date Type Department Care Team ([facility] st Contact Info) Description 11/14/2023 Refill [facility] [address] [place] [address] Chun Porras MD [address] [place] [address] Chronic midline low back pain without sciatica [...] Description 12/10/2024 1:15 PM EDT Office Visit [facility] [address] [place] [address] Chun Porras MD [address] [place] [address] 02/05/2025 11:00 AM EDT Clinical Support [facility] [address] [place] [address] Maritza Mejia, SANDRA [address] [place] [address] documented as of this encounter Goals Goal [...] documented as of this encounter Care Teams Industrial Real Estate Agent Relationship Specialty Start Date End Date Chun Porras MD [address] [place] [address] PCP - General Internal Medicine 05/26/14 Lynsey Madison, Sherwin [address] [place] [address] Pharmacist Internal Medicine 09/26/23 documented as of this encounter
--- OUTSIDE RECORDS SUMMARY | 2024-11-18 15:18 | XMS_ITS | Encounter Summary ---
Author Organization [employer] Address [address] [place] [address] Care Team Providers Care Roofer Helper Name Role Phone Chun Porras MD Primary Care Provide r Lynsey [place] PharmD Unavailable [phone] Reason for Visit * Reason Onset Date Comments Med Refill 03/22/2023 Encounter Details Date Type Department Care Team (Late st Contact Info) Description 03/14/2023 Refill [facility] [address] [place] [address] Chun Porras MD [address] [place] [address] Chronic midline low back pain without sciatica [...] Miscellaneous Notes * Telephone Encounter - Jessie Vargas Chau - 03/22/2023 11:46 AM EDT Pt walked in requesting a refill for traMADol (Ultram) 50 MG tablet. Pt is stating he doesn't have medication. He can be contact any time. Kenyan Speaker * Telephone Encounter - Arlette Phipps [...] Description 12/10/2024 1:15 PM EDT Office Visit [facility] [address] [place] [address] Chun Porras MD [address] [place] [address] 02/05/2025 11:00 AM EDT Clinical Support [facility] [address] [place] [address] Maritza Mejia, RN [address] [place] [address] documented as of this encounter Visit Diagnoses Diagnosis Chronic midline low back pain without sciatica documented in this encounter Additional Health Concerns Assessment Noted Time PHQ-9 Depression Total Score: 3 07/06/20 22 11:00 AM EST documented as of this encounter Care Teams Roofer Helper Relationship Specialty Start Date End Date Chun Porras MD [address] [place] [address] PCP - General Internal Medicine 05/26/14 Lynsey Madison, MichaelD [address] [place] [address] Pharmacist Internal Medicine 09/26/23 documented as of this encounter
--- OUTSIDE RECORDS SUMMARY | 2024-11-18 15:18 | XMS_ITS | Encounter Summary ---
Author Organization [employer] Address [address] [place] [address] Care Team Providers Care Wheel Truing Machine Tender Name Role Phone Chun Porras MD Primary Care Provide r Lynsey [place] PharmD Unavailable [phone] Reason for Visit * Reason Comments Med Refill Encounter Details Date Type Department Care Team ([facility] st Contact Info) Description 10/18/2023 Refill [facility] [address] [place] [address] Chun Porras MD [address] [place] [address] Essential hypertension Social History Tobacco Use Types [...] Description 12/10/2024 1:15 PM EDT Office Visit [facility] [address] [place] [address] Chun Porras MD [address] [place] [address] 02/05/2025 11:00 AM EDT Clinical Support [address] [address] Maritza Mejia RN [address] [place] [address] documented as of this encounter Goals Goal [...] documented as of this encounter Care Teams Wheel Truing Machine Tender Relationship Specialty Start Date End Date Chun Porras MD [address] [place] [address] PCP - General Internal Medicine 05/26/14 Lynsey Madison, MichaelD [address] [place] [address] Pharmacist Internal Medicine 09/26/23 documented as of this encounter
--- OUTSIDE RECORDS SUMMARY | 2024-11-18 15:18 | XMS_ITS | Encounter Summary ---
Author Organization [employer] Address [address] [facility] [address] [place] [address] Care Team Providers Care Food Technology Teacher Name Role Phone Chun Porras MD Primary Care Provide r Lynsey Madison PharmD Unavailable [phone] Reason for Visit * Reason Comments Med Refill Encounter Details Date Type Department Care Team ([facility] st Contact Info) Description 07/04/2023 Refill [facility] MEDICINE [address] [place] [address] Chun Porras MD 230 [place] [address] Type 2 diabetes mellitus without complication, unspecified 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 lobsterman insulin use ([facility]) Social History Tobacco Use Types Packs/Day Years [...] Description 12/10/2024 1:15 PM EDT Office Visit [facility] MEDICINE [address] [place] [address] Chun Porras MD [address] [place] [address] 02/05/2025 11:00 AM EDT Clinical Support [address] [address] Maritza Mejia, SANDRA [address] [place] [address] documented as of this encounter Visit Diagnoses Diagnosis Type 2 diabetes mellitus without complication, unspecified whether longterm insulin use ([facility]) documented in this encounter Additional Health Concerns Assessment Noted Time PHQ-9 Depression Total Score: 3 07/06/20 22 11:00 AM EST documented as of this encounter Care Teams Food Technology Teacher Relationship Specialty Start Date End Date Chun Porras MD [address] [place] [address] PCP - General Internal Medicine 05/26/14 Lynsey Madison, Sherwin [address] [place] [address] Pharmacist Internal Medicine 09/26/23 documented as of this encounter
--- OUTSIDE RECORDS SUMMARY | 2024-11-18 15:18 | XMS_ITS | Encounter Summary ---
Author Organization [employer] Address [address] [facility] [address] 7[address] [place] [address] Care Team Providers Care Ocean Freight Forwarder Name Role Phone Chun Porras MD Primary Care Provide r Lynsey Madison PharmD Unavailable [phone] Reason for Visit * Reason Comments Med Refill Encounter Details Date Type Department Care Team ([facility] st Contact Info) Description 04/21/2023 Refill [facility] MEDICINE [address] [place] [address] Name, MD Cristhian 230 [place] [address] Essential hypertension Social History Tobacco Use Types [...] Office Visit [facility] MEDICINE [address] [place] [address] Chun Porras MD [address] [place] [address] 02/05/2025 11:00 AM EDT Clinical Support [address] [address] Maritza Mejia, RN 505 [place] [address] documented as of this encounter Visit Diagnoses Diagnosis Essential hypertension Unspecified essential hypertension documented in this encounter Additional Health Concerns Assessment Noted Time PHQ-9 Depression Total Score: 3 07/06/20 22 11:00 AM EST documented as of this encounter Care Teams Ocean Freight Forwarder Relationship Specialty Start Date End Date Chun Porras MD [address] [place] [address] PCP - General Internal Medicine 05/26/14 Lynsey Madison PharmD [address] [place] [address] Pharmacist Internal Medicine 09/26/23 documented as of this encounter
--- OUTSIDE RECORDS SUMMARY | 2024-11-18 15:18 | XMS_ITS | Encounter Summary ---
Author Organization [employer] Address [address] [facility] [address] 7[address] [place] [address] Care Team Providers Care Cheese Cooker Name Role Phone Chun Porras MD Primary Care Provide r Lynsey Madison PharmD Unavailable [phone] Reason for Visit * Reason Comments Med Refill Encounter Details Date Type Department Care Team ([facility] st Contact Info) Description 11/12/2024 Refill [facility] MEDICINE 230 [place] [address] Chun Porras MD 230 [place] [address] Chronic midline low back pain without sciatica [...] Description 12/10/2024 1:15 PM EDT Office Visit [facility] MEDICINE [address] [place] [address] Chun Porras MD [address] [place] [address] 02/05/2025 11:00 AM EDT Clinical Support [facility] MEDICINE [address] [place] [address] Maritza Mejia RN 505 [place] [address] documented as of this encounter Goals Goal Patient Goal Type Associated Problems Recent Progress Patient-Stated? Author Blood Pressure < 140/90 Blood Pressure Essential hypertension 118/73(2024 10:36 AM EDT) No Lynsey Madison, PharmD documented as of this encounter Visit Diagnoses Diagnosis Chronic midline low back pain without sciatica documented in this encounter Additional Health Concerns Assessment Noted Time PHQ-9 Depression Total Score: 19 025 1:13 PM EDT documented as of this encounter Care Teams Cheese Cooker Relationship Specialty Start Date End Date Chun Porras MD 230 [place] [address] PCP - General Internal Medicine 05/26/14 Lynsey Madison PharmD 230 [place] [address] Pharmacist Internal Medicine 09/26/23 documented as of this encounter
--- OUTSIDE RECORDS SUMMARY | 2024-11-18 15:18 | XMS_ITS | Encounter Summary ---
Author Organization [employer] Address [address] [facility] [address] [place] [address] Care Team Providers Care Cryptographic Vulnerability Analyst Name Role Phone Chun Porras MD Primary Care Provide r Lynsey Madison PharmD Unavailable [phone] Reason for Visit * Reason Comments Med Refill Encounter Details Date Type Department Care Team ([facility] st Contact Info) Description 04/25/2023 Refill [facility] MEDICINE 230 [place] [address] Name, MD Cristhian [address] [place] [address] Essential hypertension Social History Tobacco Use Types [...] Description 12/10/2024 1:15 PM EDT Office Visit [facility] MEDICINE [address] [place] [address] Chun Porras MD [address] [place] [address] 02/05/2025 11:00 AM EDT Clinical Support [address] [address] Maritza Mejia, RN 505 [place] [address] documented as of this encounter Visit Diagnoses Diagnosis Essential hypertension Unspecified essential hypertension documented in this encounter Additional Health Concerns Assessment Noted Time PHQ-9 Depression Total Score: 3 07/06/20 22 11:00 AM EST documented as of this encounter Care Teams Cryptographic Vulnerability Analyst Relationship Specialty Start Date End Date Chun Porras MD [address] [place] [address] PCP - General Internal Medicine 05/26/14 Lynsey Madison PharmD [address] [place] [address] Pharmacist Internal Medicine 09/26/23 documented as of this encounter
--- OUTSIDE RECORDS SUMMARY | 2024-11-18 15:18 | XMS_ITS | Encounter Summary ---
Author Organization [employer] Address [address] [facility] [address] 7[address] [place] [address] Care Team Providers Care Commissary Manager Name Role Phone Chun Porras MD Primary Care Provide r Lynsey Madison PharmD Unavailable [phone] Reason for Visit * Reason Comments Med Refill Encounter Details Date Type Department Care Team ([facility] st Contact Info) Description 11/14/2023 Refill [facility] MEDICINE 230 [place] [address] Chun Porras MD 230 [place] [address] Chronic midline low back pain without sciatica [...] Description 12/10/2024 1:15 PM EDT Office Visit [facility] MEDICINE [address] [place] [address] Chun Porras MD [address] [place] [address] 02/05/2025 11:00 AM EDT Clinical Support [facility] MEDICINE [address] [place] [address] Maritza Mejia, SANDRA 505 [place] [address] documented as of this encounter Goals Goal [...] documented as of this encounter Care Teams Commissary Manager Relationship Specialty Start Date End Date Chun Porras MD [address] [place] [address] PCP - General Internal Medicine 05/26/14 Lynsey Madison, Sherwin [address] [place] [address] Pharmacist Internal Medicine 09/26/23 documented as of this encounter
--- OUTSIDE RECORDS SUMMARY | 2024-11-18 15:18 | XMS_ITS | Encounter Summary ---
Author Organization [employer] Address [address] [facility] [address] 7[address] [place] [address] Care Team Providers Care Director Of Restaurant Operations Name Role Phone Chun Porras MD Primary Care Provide r Lynsey Madison PharmD Unavailable [phone] Reason for Visit * Reason Comments Med Refill Encounter Details Date Type Department Care Team ([facility] st Contact Info) Description 11/12/2024 Refill [facility] MEDICINE 230 [place] [address] Chun Porras MD 230 [place] [address] Chronic midline low back pain without sciatica [...] [facility] [address] [place] [address] Chun Porras MD [address] [place] [address] 02/05/2025 11:00 AM EDT Clinical Support [facility] MEDICINE [address] [place] [address] Maritza Mejia RN 505 [place] [address] documented as of this encounter Goals Goal [...] of this encounter Care Teams Director Of Restaurant Operations Relationship Specialty Start Date End Date Chun Porras MD 230 [place] [address] PCP - General Internal Medicine 05/26/14 Lynsey Madison PharmD 230 [place] [address] Pharmacist Internal Medicine 09/26/23 documented as of this encounter
--- OUTSIDE RECORDS SUMMARY | 2024-11-18 15:18 | XMS_ITS | Encounter Summary ---
Author Organization [employer] Address [address] [facility] [address] 7[address] [place] [address] Care Team Providers Care Video Conference Specialist Name Role Phone Chun Porras MD Primary Care Provide r Lynsey Madison PharmD Unavailable [phone] Reason for Visit * Reason Comments Med Refill Encounter Details Date Type Department Care Team ([facility] st Contact Info) Description 09/18/2023 Refill [facility] MEDICINE 230 [place] [address] Chun Porras MD 230 [place] [address] Mixed hyperlipidemia Social History Tobacco Use Types [...] Description 12/10/2024 1:15 PM EDT Office Visit [facility] MEDICINE [address] [place] [address] Chun Porras MD [address] [place] [address] 02/05/2025 11:00 AM EDT Clinical Support [facility] MEDICINE [address] [place] [address] Maritza Mejia RN 505 [place], [place] [phone] documented as of this encounter Goals Goal Patient Goal Type Associated Problems Recent Progress Patient-Stated? Author Blood Pressure < 140/90 Blood Pressure Essential hypertension 118/73(2024 10:36 AM EDT) No Lynsey Madison PharmD documented as of this encounter Visit Diagnoses Diagnosis Mixed hyperlipidemia documented in this encounter Additional Health Concerns Assessment Noted Time PHQ-9 Depression Total Score: 3 07/06/20 22 11:00 AM EST documented as of this encounter Care Teams Video Conference Specialist Relationship Specialty Start Date End Date Chun Porras MD [address] [place] [address] PCP - General Internal Medicine 05/26/14 Lynsey Madison PharmD [address] [place] [address] Pharmacist Internal Medicine 09/26/23 documented as of this encounter
--- OUTSIDE RECORDS SUMMARY | 2024-11-18 15:18 | XMS_ITS | Encounter Summary ---
Author Organization [employer] Address [address] [facility] 7t [place] [address] Care Team Providers Care Head Cd Reactor Operator Name Role Phone Chun Porras MD Primary Care Provide r Lynsey Madison PharmD Unavailable [phone] Reason for Visit * Reason Comments Med Refill Encounter Details Date Type Department Care Team ([facility] st Contact Info) Description 07/20/2022 Refill [facility] MEDICINE 230 [place] [address] Chun Porras MD 230 [place] [address] Chronic midline low back pain without sciatica [...] Description 12/10/2024 1:15 PM EDT Office Visit [facility] MEDICINE [address] [place] [address] Chun Porras MD [address] [place] [address] 02/05/2025 11:00 AM EDT Clinical Support [facility] MEDICINE [address] [place] [address] Maritza Mejia, SANDRA 505 [place] [address] documented as of this encounter Visit Diagnoses Diagnosis Chronic midline low back pain without sciatica documented in this encounter Additional Health Concerns Assessment Noted Time PHQ-9 Depression Total Score: 3 07/06/20 22 11:00 AM EST documented as of this encounter Care Teams Head Cd Reactor Operator Relationship Specialty Start Date End Date Chun Porras MD [address] [place] [address] PCP - General Internal Medicine 05/26/14 Lynsey Madison PharmD [address] [place] [address] Pharmacist Internal Medicine 09/26/23 documented as of this encounter
--- OUTSIDE RECORDS SUMMARY | 2024-11-18 15:18 | XMS_ITS | Encounter Summary ---
Author Organization [employer] Address [address] [facility] [address] [place] [address] Care Team Providers Care Therapy Administrative Assistant Name Role Phone Chun Porras MD Primary Care Provide r Lynsey Madison PharmD Unavailable [phone] Reason for Visit * Reason Comments Med Refill Encounter Details Date Type Department Care Team ([facility] st Contact Info) Description 06/21/2023 Refill [facility] MEDICINE 230 [place] [address] Chun Porras MD 230 [place] [address] Type 2 diabetes mellitus without complication, unspecified whether intermission coordinator insulin use ([facility]); Mixed hyperlipidemia Social History Tobacco Use [...] enough money to get more: Never True 10/ Transportation Answer Date Recorded In the past [...] Description 12/10/2024 1:15 PM EDT Office Visit [facility] MEDICINE [address] [place] [address] Chun Porras MD [address] [place] [address] 02/05/2025 11:00 AM EDT Clinical Support [facility] MEDICINE [address] [place] [address] Maritza Mejia, RN 505 [place] [address] documented as of this encounter Visit Diagnoses Diagnosis Type 2 diabetes mellitus without complication, unspecified whether mcc insulin use ([facility]) Mixed hyperlipidemia documented in this encounter Additional Health Concerns Assessment Noted Time PHQ-9 Depression Total Score: 3 07/06/20 22 11:00 AM EST documented as of this encounter Care Teams Therapy Administrative Assistant Relationship Specialty Start Date End Date Chun Porras MD [address] [place] [address] PCP - General Internal Medicine 05/26/14 Lynsey Madison PharmD [address] [place] [address] Pharmacist Internal Medicine 09/26/23 documented as of this encounter
--- OUTSIDE RECORDS SUMMARY | 2024-11-18 15:18 | XMS_ITS | Data Portability ---
Author Organization [employer] [facility] [place] - [facility] Address [address] [place] [phone] Care Team Providers Care Carcass Splitter Name Role Phone HIM DAVIN OTHER Assessment Encounter Date Assessment Date Assessment LastModified by Organization Details LastModified Time 10/04/2024 10/04/2024 As noted, we were called to see this patient regarding concerns of HTN. Evaluation in the field was performed by my appeals referee colleague, as noted above, I provided real-time direction and supervision for this visit. The evaluation revealed patient has been having a headache, chest pressure, and shortness of breath. Patient states he was recently taken off metoprolol. He is only on amlodipine for HTN. He took an extra dose of his amlodipine. ECG reveals sinus rhythm, 75 bpm, normal intervals, no STEMI. Patient received 324 mg aspirin. I spoke with the patient who is agreeable to go to the ED. I called in an expect at [place] [facility]. Impression: Chest pain, shortness of breath, hypertension. Plan: ED Disposition: We discussed the situation and I recommended referral to the emergency department. This was based on chest pain. [facility] 10/04/2024 13:48:24 Plan of Treatment Reminders Order Date Submit Date Provider Last Modified By Organization Details Last Modified Time Details Appointments None recorded. Lab None recorded. Referral None recorded. Procedures None recorded. Surgeries None recorded. [facility] [address] [place] [address], [phone] 15:46:07 Medication Orders aspirin 81 mg chewable tablet [email or web address] [facility], [address] [place], [place], [phone], 13:48:03 Patient TargetsNo targets recorded. Patient InstructionsNo instructions recorded. Reason for Referral None Reported. Results Created Date Observation Date Name Description Value Unit Range Abnormal Flag Note LastModifiedBy Organization Detail LastModifiedTime 10/05/1910/04/2024 kenneth pace am No observ ation record ed. [email or web address] [address], [phone] 10/04/2024 17:13:49 Result Notes None recorded. Procedures Surgical History None recorded. Imaging Results Imaging Date Name Status LastModified by Organization Details LastModified Time 10/04/2024 electrocardiogram completed [email or web address] [address], [phone] 10/04/2024 17:13:49 Procedure Notes None recorded. Medical Equipment None Reported. Allergies No known drug allergies Medications Name Sig Start Date Stop Date Status Note LastModified by Organization Details LastModified Time amoxicillin 500 mg capsule TOME 1 C PSULA POR V A ORAL RAJWINDER VECES AL D A HASTA QUE SE TERMINE active Not Available Not Available N ot Available terazosin 5 mg capsule TAKE 1 CAPSULE BY MOUTH AT BEDTIME active Not Available Not Available No t Available atorvastatin 40 mg tablet TAKE 1 TABLET BY MOUTH EVERY MORNING active Not Available Not Available No t Available rabeprazole 20 mg tablet,delaye d release TAKE 1 TABLET BY MOUTH TWICE DAILY IN THE MORNING AND IN THE EVENING active Not Available Not Available No t Available ketoconazole 2 % shampoo APPLY TO SCALP AND LEAVE ON FOR 5 MINUTES THEN RINSE OFF TWICE A WEEK active Not Available Not Available No t Available albuterol sulfate 2.5 mg/3 mL (0.083 %) solution for nebulization INHALE 1 AMPULE USING A NEBULIZER EVERY 4 HOURS NEEDED FOR WHEEZING OR SHORTNESS OF BREATH active Not Available Not Available No t Available cetirizine 10 mg tablet TAKE 1 TABLET BY MOUTH EVERY DAY active Not Available Not Available No t Available ibuprofen 800 mg tablet TAKE 1 TABLET BY MOUTH EVERY 8 HOURS NEEDED FOR PAIN active Not Available Not Available No t Available gabapentin 400 mg capsule TAKE 1 CAPSULE BY MOUTH TWICE DAILY IN THE MORNING AND AT BEDTIME active Not Available Not Available No t Available metronidazole 500 mg tablet TAKE 2 TABLETS BY MOUTH TWICE DAILY FOR 14 DAYS active Not Available Not Available No t Available omeprazole 40 mg capsule,delay ed release TAKE 1 CAPSULE BY MOUTH BEFORE BREAKFAST AND BEFORE SUPPER DO NOT BREAK, CRUSH, DISSOLVE OR CHEW active Not Available Not Available No t Available aspirin 81 mg tablet,delaye d release TAKE 1 TABLET BY MOUTH EVERY MORNING active Not Available Not Available No t Available tramadol 50 mg tablet TAKE 1 TABLET BY MOUTH EVERY 8 HOURS NEEDED FOR SEVERE PAIN active Not Available Not Available No t Available dicyclomine 20 mg tablet TAKE 1 TABLET BY MOUTH FOUR TIMES DAILY active Not Available Not Available No t Available amlodipine 10 mg tablet TAKE 1 TABLET BY MOUTH EVERY MORNING active Not Available Not Available No t Available metoprolol tartrate 50 mg tablet TAKE 1 TABLET BY MOUTH TWICE DAILY IN THE MORNING AND IN THE EVENING WITH FOOD active Not Available Not Available No t Available gabapentin 300 mg capsule TAKE 1 CAPSULE BY MOUTH TWICE DAILY IN THE MORNING AND AT BEDTIME active Not Available Not Available No t Available bismuth subsalicylate 262 mg chewable tablet TAKE 2 TABLETS BY MOUTH FOUR TIMES DAILY FOR 14 DAYS (chew) active Not Available Not Available No t Available montelukast 10 mg tablet TAKE 1 TABLET BY MOUTH AT BEDTIME active Not Available Not Available No t Available Viagra 100 mg tablet TAKE 1 TABLET 1 HOUR BEFORE SEXUAL RELATIONS ONCE DAILY NEEDED. active Not Available Not Available N ot Available ibuprofen 600 mg tablet TAKE 1 TABLET BY MOUTH EVERY 6 TO 8 HOURS NEEDED FOR PAIN active Not Available Not Available No t Available methylprednis olone 4 mg tablets in a dose pack TAKE DIRECTED active Not Available Not Available No t Available metformin ER 500 mg tablet,extend ed release 24 hr TAKE 2 TABLETS BY MOUTH ONCE DAILY IN THE MORNING and TAKE 1 TABLET BY MOUTH AT BEDTIME active Not Available Not Available No t Available doxycycline hyclate 100 mg tablet TAKE 1 TABLET BY MOUTH TWICE DAILY FOR 14 DAYS active Not Available Not Available No t Available amoxicillin 875 mg-potassium clavulanate 125 mg tablet TAKE 1 TABLET BY MOUTH EVERY TWELVE HOURS FOR 10 DAYS active Not Available Not Available No t Available Ventolin HFA 90 mcg/actuation aerosol inhaler INHALE 2 PUFFS BY MOUTH EVERY 4 TO 6 HOURS NEEDED FOR WHEEZING OR SHORTNESS OF BREATH active Not Available Not Available No t Available Gas Relief (simethicone) 180 mg capsule TAKE 1 CAPSULE BY MOUTH FOUR TIMES DAILY AFTER MEALS active Not Available Not Available No t Available ramelteon 8 mg tablet TAKE 1 TABLET BY MOUTH EVERY EVENING active Not Available Not Available No t Available chlorhexidine gluconate 0.12 % mouthwash SWISH 15 ML BY MOUTH FOR 30 SECONDS THEN SPIT OUT , USE ONCE DAILY NEEDED FOR UP TO 14 DAYS active Not Available Not Available No t Available FreeStyle Lite Strips TEST BLOOD SUGAR TWICE DAILY active Not Available Not Available No t Available TRUEplus Lancets 33 gauge TEST BLOOD SUGAR TWICE DAILY active Not Available Not Available No t Available Trelegy Ellipta 200 mcg-62.5 mcg-25 mcg powder for inhalation INHALE 1 PUFF BY MOUTH EVERY DAY AT THE SAME TIME RINSE MOUTH AFTER USING active Not Available Not Available No t Available Vitals Date Recorded Heart rate Body weight Oxygen saturation Oxygen saturation in Arterial blood by Pulse oximetry Body temperature Respiratory rate Body height Systolic blood pressure Diastolic blood pressure Provider Name and Address Organization Details Last Updated DateTime 5 76 /min 35650.6 4 g 97 % 97 % 98.3 [degF] 16 /min 177.8 cm 145 mm[Hg] 76 mm[Hg] Not Available [facility] - production 13:20:55 Social History None recorded. Functional Status None recorded. Mental Status None recorded. Family History Nothing Reported. Medical History No medical history recorded. Past Encounters Encounter ID Performer Location Encounter Start Date Encounter Closed Date Diagnosis/Indication Diagnosis SNOMED-CT Code Diagnosis ICD10 Code Diagnosis Note [id number] Diogo Otto MD Main - [facility] [address] [place] [phone] 10/04/2024 13:20:53 10/05/2024 14:15:36 Chest pain 96186569 R07.9 Health Concerns Section Related Observation LastModified by Organization Detai ls LastModified Time None Recorded Concern Status LastModified by Organization Details LastModified Time None Recorded Advance Directives Directive None Recorded Payers Insurance Date Sequence Insurance Name Policy Number Policy Rashid Covered Member ID Rashid Member ID Guarantor Name 10/04/2024 1 [facility] - DOS ON OR AFTER 2022 - DUAL ELIGIBLE - PENITENTIARY OPTIONS AND ONE CARE (MEDICARE REPLACEMENT/ADV ANTAGE - HMO) Francisco J Garcia [id number] Francisco J Garcia Notes Date Note Type Note Provider Name and Address Organization Details Recorded Time 10/04/2024 text/html CRC Nurse Triage Notes (Cas Almeida): Reason For Request: blood pressure high Denies: History of Heart Attack, in the setting of active chest pain Active Chest pain, radiates to neck jaw and or arm Diaphoretic/Sweati ng Describes as ? c rushing? Sudden onset of nausea/Vomiting and shortness of breath. Shortness of Breath Unable to speak in full sentences without distress Chief Complaints: High Blood Pressure PMH: Hypertension, Diabetes Mellitus Type 2, Asthma PMH Reviewed at 10/04/2024 10:20 Allergies Reviewed at 10/04/2024 10:20 Comments: Ways Operator verified the Pt.'s name//address and phone number. Education provided on the response time and the Pt. was advised to monitor reported s/s and seek emergency treatment if needed. CG reports the pt is feeling well with an elevated blood pressure- 150/? - Headache - Denies dizziness -Denies chest pain and SOB - Taking blood pressure as prescribed - CG reports the with pt is feeling anxious about same- Denies confusion - Pharmacovigilance Safety Expert provider in place. [employer] Organization Information for Alice Gilmore [employer] Name: [email or web address]? Address: [address] [place] [id number], [employer] Unified [employer] Engineer: Trae Cotter MD CLIA No.: [id number] [employer] POC Test Results from Alice Gilmore EKG (13:32:45) EKG test performed. Attachments uploaded as part of this test result can be found under Documents section. .................. .................. .................. .................. .................. .................. .................. ............... [employer] Note From Gilmore Susankaryna: [facility] makes pt contact. He answers the door and invites MI inside his small apartment. He is ambulating w/ a cane and moving about unencumbered. He sits on the sofa w/o pain or discomfort. Pt is not in acute distress. He is not tripoding, no stridor or sonorous respirations are noted. No facial droop, one-sided weakness, or slurred speech are observed and he is not bleeding anywhere. Pt speaks limited broken Salvadorean, so director business systems services are utilized. Pt endorses GALLARDO, CP, and SOB since he awoke this morning around 0500. He says he took his bp and it was high and remained high, around 160-180 systolic. Pt became more anxious about his pressure and took two of his amlodipine instead of one and he says his pressure has started to come down. He is feeling a little better, but not much . Pt also endorses some swelling in his LEs and he has been laying w/ his feet elevated. Pt reports being taken off one of his bp meds on (metoprolol) because when he was seen in clinic, it was determined his bp was too low. He has not had an issue until this morning. Pt denies previous cardiac events. He points to the R side of his chest as the location of his pain and says it goes a little in to his arm and back and is an 8-9/10. Pt consents to evaluation and treatment today. He is denying recent illness, fevers/chills, or n/v/d. [facility] obtains vital signs and pt is assessed. Lung sounds are clear, cp is not reproducible w/ palpation or compression of the chest wall and abdomen is soft and nontender w/ no guarding, distension, or pulsating masses noted. [facility] does not appreciate any swelling to the LEs at this time. A 12-lead EKG is obtained. [facility] contacts [facility] and discusses the above and [facility] and [facility] agree pt should be evaluated in the ER for cardiac enzymes. [facility] speaks to pt through the director business systems and expresses concerns. Pt is amendable to transport to [facility]. [facility] administers 324mg baby aspirin PO and instructs pt to chew and swallow. Pt is transported by [facility]. [facility] is clear. Report completed by JAMES Gilmore [id number]. [facility] Medication Orders: aspirin 81 mg chewable tablet: Administered .................. .................. .................. .................. .................. .................. .................. ............... [facility] Consulted: Diogo Otto .................. .................. .................. .................. .................. .................. .................. ............... Disposition: Fulfilled Diogo Otto MD [address] [facility],[address], [place], [phone], STEF - YESSY BARAJAS 10/04/2024 14:53:25
--- OUTSIDE RECORDS SUMMARY | 2024-11-18 15:18 | XMS_ITS | Encounter Summary ---
Author Organization [employer] Address [address] [place] [address] Care Team Providers Care Clipman Name Role Phone Chun Porras MD Primary Care Provide r Lynsey Madison PharmD Unavailable [phone] Reason for Visit * Reason Comments Med Refill Encounter Details Date Type Department Care Team ([facility] st Contact Info) Description 09/29/[address] [facility] [address] [place] [address] Chun Porras MD [address] [place] [address] Type 2 diabetes mellitus without complication, unspecified whether superintendent container terminal insulin use ([facility]) Social History [...] Description 12/10/2024 1:15 PM EDT Office Visit [facility] [address] [place] [phone] Chun Porras MD [address] [place] [phone] 02/05/2025 11:00 AM EDT Clinical Support [facility] [address] [place] [phone] Maritza Mejia, SANDRA [address] [place] [address] documented as of this encounter Goals Goal Patient Goal Type Associated Problems Recent Progress Patient-Stated? Author Blood Pressure < 140/90 Blood Pressure Essential hypertension 118/73(2024 10:36 AM EDT) No Lynsey Madison, PharmD documented as of this encounter Visit Diagnoses Diagnosis Type 2 diabetes mellitus without complication, unspecified whether superintendent container terminal insulin use ([facility]) documented in this encounter Additional Health Concerns Assessment Noted Time PHQ-9 Depression Total Score: 3 07/06/20 22 11:00 AM EST documented as of this encounter Care Teams Clipman Relationship Specialty Start Date End Date Chun Porras MD [address] [place] [phone] PCP - General Internal Medicine 11/12/14 Lynsey Madison, MichaelD [address] [place] [phone] Pharmacist Internal Medicine 09/26/23 documented as of this encounter
--- OUTSIDE RECORDS SUMMARY | 2024-11-18 15:18 | XMS_ITS | Encounter Summary ---
Author Organization [employer] Address [address] [place] [address] Care Team Providers Care Major Gifts Director Name Role Phone Chun Porras MD Primary Care Provide r Lynsey Madison PharmD Unavailable [phone] Reason for Visit * Reason Comments Med Refill Encounter Details Date Type Department Care Team ([facility] st Contact Info) Description 08/22/2023 Refill [facility] [address] [place] [address] Colleen Lou FNP [address] [place] [address] Chronic obstructive pulmonary disease with (acute) exacerbation [...] Office Visit [facility] [address] [place] [phone] Chun Porras MD [address] [place] [phone] 02/05/2025 11:00 AM EDT Clinical Support [facility] [address] [place] [phone] Maritza Mejia RN [address] [place] [address] documented as of this encounter Goals Goal [...] documented as of this encounter Care Teams Major Gifts Director Relationship Specialty Start Date End Date Chun Porras MD [address] [place] [phone] PCP - General Internal Medicine 05/26/14 Lynsey Madison, PharmD [address] [place] [address] Pharmacist Internal Medicine 09/26/23 documented as of this encounter
== END 2024-11-18 15:17 | disposition home or self-care (01) ==
LOC: HO.HCS 14:01
PROVIDERS: Visit Provider Internal Medicine Cardiovascular Disease
DX: I51.7 Cardiomegaly (principal); R07.9 Chest pain, unspecified
CPT/HCPCS: 99213

== ENCOUNTER → 2024-11-18 14:00 | Outpatient (BNVA) | payer OTHER, SELFPAY | PROVIDERS: Visit Provider Internal Medicine Cardiovascular Disease | DX: I51.7 Cardiomegaly (principal); J44.89 Other specified chronic obstructive pulmonary disease; R07.9 Chest pain, unspecified | CPT/HCPCS: 99212 ==

== ENCOUNTER 2024-12-05 10:25 | Emergency (ER) | payer OTHER, SELFPAY ==
[2024-12-05 10:28] VITALS: BP 115/79; PULSE 80; RESP 18; TEMP 36.8; O2SAT 96; BMI 24.7
--- NOTE | 2024-12-05 11:02 | ED.ALLEREA ---
HPI - Allergic Reaction General Chief complaint: Allergic Reaction Stated complaint: facial swelling Time Seen by Provider: 12/05/24 11:02 Source: patient Mode of arrival: ambulatory Limitations: no limitations and language barrier History of Present Illness ED Provider: Yash Molina DO HPI narrative: 64-year-old male with past medical history of ddn-wlejzfg-iykfqlsda diabetes, hypertension, hyperlipidemia, asthma and chronic itching (takes Benadryl nightly) presents to the ED due to itching without pain and concern for swelling of his face around his mouth, symptoms starting a couple hours after applying a milligan dye last night. Patient states his symptoms have been improving. He initially had some drooling which resolved. He denies numbness of his face, change in speech or hearing, numbness or weakness of his arms or legs, difficulty with balance or walking, swelling of his lips or tongue, fevers or chills or any other symptoms. He has not had these symptoms in the past. Related Data Home Medications ?Medication ?Instructions ?Recorded ?Confirmed amitriptyline 100 mg tablet 1 tab PO BEDTIME 07/25/20 11/18/24 aspirin 81 mg tablet,delayed 1 tab PO QAM 07/25/20 11/18/24 release atorvastatin 40 mg tablet 1 tab PO BEDTIME 07/25/20 11/18/24 sildenafil 100 mg tablet (Viagra) 1 tab PO DAILY PRN Erectile 07/25/20 11/18/24 Dysfunction duloxetine 60 mg capsule,delayed 1 cap PO QAM 03/28/21 11/18/24 release finasteride 5 mg tablet 1 tab PO DAILY 07/08/21 11/18/24 amlodipine 10 mg tablet 1 tab PO QAM 09/08/21 11/18/24 metoprolol tartrate 50 mg tablet 1 tab PO 09/08/21 11/18/24 nebulizers 10/26/22 11/18/24 tramadol 50 mg tablet 50 mg PO TID PRN 08/16/23 11/18/24 metformin 500 mg tablet,extended 500 mg PO BID 12/24/23 11/18/24 release 24 hr blood sugar diagnostic (FreeStyle #10 ea 02/06/24 11/18/24 Lite Strips) lancets 33 gauge (TRUEplus Lancets) #100 ea 02/06/24 11/18/24 ramelteon 8 mg tablet 8 mg PO DAILY 02/21/24 11/18/24 gabapentin 300 mg capsule mg PO 05/06/24 11/18/24 Previous Rx's ?Medication ?Instructions ?Recorded ipratropium 0.5 mg-albuterol 3 mg 3 ml inhalation Q4H PRN shortness 06/28/22 (2.5 mg base)/3 mL nebulization of breath or wheezing #90 mL soln lidocaine 5 % topical patch 1 patch topical DAILY #15 ea 08/25/22 (Lidoderm) terazosin 5 mg capsule 5 mg PO BEDTIME 90 days #90 caps 01/21/24 dicyclomine 20 mg tablet 20 mg PO QID 30 days #120 tabs 05/06/24 rabeprazole 20 mg tablet,delayed 20 mg PO BID #60 tabs 05/06/24 release (AcipHex) simethicone 180 mg capsule 180 mg PO QID 30 days #120 caps 05/06/24 bismuth subsalicylate 262 mg 2 tab PO QID 14 days #112 tabs 05/27/24 chewable tablet (Bismuth) doxycycline hyclate 100 mg tablet 100 mg PO BID 14 days #28 tabs 05/27/24 metronidazole 500 mg tablet 1,000 mg (2 x 500 mg) PO BID 14 05/27/24 days #56 tabs fluticasone fur. 200 mcg-umeclid 1 inh inhalation DAILY 30 days #60 08/06/24 62.5 mcg-vilant 25 mcg ea inhalat.powder (Trelegy Ellipta) albuterol sulfate 2.5 mg/3 mL 2.5 mg (3 mL) inhalation Q4H PRN 10/26/24 (0.083 %) solution for nebulization shortness of breath or wheezing 30 days #360 mL montelukast 10 mg tablet 10 mg PO BEDTIME #30 tabs 11/04/24 omeprazole 40 mg capsule,delayed 40 mg PO DAILY 30 days #30 caps 11/19/24 release albuterol sulfate 90 mcg/actuation 2 puff PO Q4-6H PRN Shortness Of 11/20/24 aerosol inhaler Breath Or Wheezing 30 days #1 ea cetirizine 10 mg tablet 20 mg (2 x 10 mg) PO DAILY PRN 12/05/24 allergy symptoms #30 tabs hydrocortisone 1 % topical cream 1 appl topical BID PRN itching 12/05/24 #28.35 grams Allergies Allergy/AdvReac Type Severity Reaction Status Date / Time No Known Allergies Allergy Verified 12/05/24 10:32 [No Known Allergies*] Review of Systems Review of Systems: Yes all other systems are reviewed and are negative [facility] Past Medical History Medical History (Updated 12/05/24 @ 12:07 by Yash Molina DO) New abnormality on chest x-ray REJI (acute kidney injury) Urgency of micturition Urinary hesitancy Nocturia more than twice per night Benign prostatic hyperplasia with weak urinary stream Epidermal inclusion cyst Atelectasis Fecal incontinence Flank lipoma Asthma-COPD overlap syndrome IBS (irritable bowel syndrome) Umbilical hernia Diabetes Arthritis Back pain GERD (gastroesophageal reflux disease) Bipolar 1 disorder Anxiety Depression Elevated cholesterol Tension pneumothorax, spontaneous Hypertension Asthma Surgical History History of esophagogastroduodenoscopy (EGD) S/P excision of lipoma (02/20/23) History of excision of mass (12/13/22) Hx of colonoscopy Hx of tracheostomy History of lung surgery Hx of hernia repair Family History Family History Mother Stomach cancer Brother Prostate cancer Brother Prostate cancer Social History Social History Household Members: None Housing: Apartment Do you presently have visiting nurse or other home services: No Alcohol intake: current Alcohol intake frequency: a few times a month Alcohol type: beer Patient Tobacco Use Status: Never used Tobacco e-Cigarette/Vaping Use: Never Used Second Hand Smoke Exposure: No Substance Use Type: Marijuana Advance Directives: Yes Advance Directives on File: Yes Advance Directives Date on File: 03/28/21 Do you have a plan to hurt others: No Plan service: No Current occupational status: unemployed Physical Exam ED Vital Signs: Vital Signs - 24 hr 12/05/24 10:28 12/05/24 11:36 Temperature 98.2 F Pulse Rate 80 83 Respiratory Rate 18 19 Blood Pressure 115/79 111/64 Pulse Oximetry 96 95 Oxygen Delivery Method Room Air Room Air BMI result Body Mass Index 24.7 Constitutional: ?Alert, oriented, speaking in full sentences HEENT: ?Normocephalic, atraumatic. ?Moist mucous membranes. No edema of the lips, tongue, uvula or palate. Mallampati class 2 Eyes: ?PERRL, EOMI Neck: ?Supple, nontender Chest: ?No chest wall tenderness Respiratory: ?Lungs clear to auscultation, no increased work of breathing Cardio: ?Regular rate and rhythm, no murmur, 2+ radial and DP pulses symmetrically GI: ?Soft, nondistended, nontender Back: ?Normal range of motion, nontender Skin: ?Multiple areas of irritation over the patient's milligan area around his chin and mouth without purulence or bleeding. Neuro: ?Alert and oriented to person, place and time, moves all 4 extremities, no focal deficits Extremities: ?No swelling or tenderness, full range of motion Psych: ?Calm, alert and cooperative, appropriate behavior Medical Decision Making Medical Decision Making MDM Narrative: This is a vitally stable, well-appearing patient presenting with signs and symptoms consistent with contact dermatitis. He has no signs of angioedema or anaphylaxis. He has no signs concerning for stroke. He is able to ambulate without difficulty. He is able to swallow Jell-O and tolerate p.o. without any difficulty. I gathered and discuss information with him with his present utilizing in-person shrimp peeling machine tender, Ro, throughout the entire encounter. I informed him that taking diphenhydramine every night can cause symptoms as he ages and recommended cetirizine instead. I prescribed this as well. As the prescribed hydrocortisone lotion if the itching continues and provided return precautions. Patient and are very content with plan and he is stable for discharge. Discharge Plan Discharge Clinical Impression: Contact dermatitis Qualifiers: Contact dermatitis type: irritant Contact dermatitis trigger: other chemical product Qualified Code(s): L24.5 - Irritant contact dermatitis due to other chemical products Patient Disposition: Home, Self-Care Instructions: Contact Dermatitis (ED) Additional Instructions: [place] cetirizina seg?n sea necesario para la picaz?n en lugar de Benadryl, a menos que no note mejor?a. Benadryl puede causar sedaci?n, somnolencia y confusi?n con la edad. Tambi?n puede aplicar la crema de hidrocortisona en la zaid si la picaz?n persiste. Evite usar el tinte para angulo en el futuro, ya que es probable que le cause irritaci?n. Regrese si presenta empeoramiento del sarpullido, fiebre, hinchaz?n en la boca, babeo persistente o cualquier otra inquietud. Prescriptions: New cetirizine 10 mg tablet 20 mg PO DAILY PRN (Reason: allergy symptoms) Qty: 30 0RF hydrocortisone 1 % cream 1 appl topical BID PRN (Reason: itching) Qty: 28.35 0RF Rx Instructions: apply to face No Action bismuth subsalicylate [Bismuth] 262 mg tablet,chewable 2 tab PO QID 14 Days Qty: 112 0RF doxycycline hyclate 100 mg tablet 100 mg PO BID 14 Days Qty: 28 0RF metronidazole 500 mg tablet 1,000 mg PO BID 14 Days Qty: 56 0RF Trelegy Ellipta 200-62.5-25 mcg blister with device 1 inh inhalation DAILY 30 Days Qty: 60 7RF albuterol sulfate 2.5 mg /3 mL (0.083 %) solution for nebulization 2.5 mg inhalation Q4H PRN (Reason: shortness of breath or wheezing) 30 Days Qty: 360 7RF montelukast 10 mg tablet 10 mg PO BEDTIME Qty: 30 4RF omeprazole 40 mg capsule,delayed release(DR/EC) 40 mg PO DAILY 30 Days Qty: 30 6RF albuterol sulfate 90 mcg/actuation HFA aerosol inhaler 2 puff PO Q4-6H PRN (Reason: Shortness Of Breath Or Wheezing) 30 Days Qty: 1 2RF atorvastatin 40 mg tablet 1 tab PO BEDTIME aspirin 81 mg tablet,delayed release (DR/EC) 1 tab PO QAM sildenafil [Viagra] 100 mg tablet 1 tab PO DAILY PRN (Reason: Erectile Dysfunction) amitriptyline 100 mg tablet 1 tab PO BEDTIME duloxetine 60 mg capsule,delayed release(DR/EC) 1 cap PO QAM finasteride 5 mg tablet 1 tab PO DAILY amlodipine 10 mg tablet 1 tab PO QAM metoprolol tartrate 50 mg tablet 1 tab PO ipratropium-albuterol 0.5 mg-3 mg(2.5 mg base)/3 mL solution for nebulization 3 ml inhalation Q4H PRN (Reason: shortness of breath or wheezing) Qty: 90 0RF Rx Instructions: until breathing returns to target peak flow/parameters lidocaine [Lidoderm] 5 % adhesive patch,medicated 1 patch topical DAILY Qty: 15 0RF Rx Instructions: leave on most painful area for up to 12 hrs (DME) nebulizers [facility] See Rx Instructions .Route Rx Instructions: As directed metformin 500 mg tablet extended release 24 hr 500 mg PO BID Rx Instructions: 1000 mg in the morning and 500 mg at night ramelteon 8 mg tablet 8 mg PO DAILY gabapentin 300 mg capsule PO dicyclomine 20 mg tablet 20 mg PO QID 30 Days Qty: 120 6RF simethicone 180 mg capsule 180 mg PO QID 30 Days Qty: 120 6RF Rx Instructions: after meals rabeprazole [AcipHex] 20 mg tablet,delayed release (DR/EC) 20 mg PO BID Qty: 60 6RF terazosin 5 mg capsule 5 mg PO BEDTIME 90 Days Qty: 90 3RF tramadol 50 mg tablet 50 mg PO TID PRN (DME) FreeStyle Lite Strips Strip See Rx Instructions .ROUTE BID Qty: 10 Rx Instructions: As directed (DME) lancets [TRUEplus Lancets] 33 gauge [facility] [place] See Rx Instructions .ROUTE .MEDSUPPLY Qty: 100 Rx Instructions: As directed Print Language: Croatian
[2024-12-05 11:36] VITALS: BP 111/64; PULSE 83; RESP 19; O2SAT 95
--- NOTE | 2024-12-05 11:41 | PC.NURSE ---
Patient presents from home after attempting to dye his milligan and experiencing an allergic reaction at which time he shaved the area making the rash worse. Took benadryl this morning with no effect. Alert and oriented. Facial rash noted. Lungs clear bilat. Respirations even and non-labored. Denies any sob. Abdomen soft, non-tender with positive bowel sounds. Positive pedal pulses with no edema. PMH: New abnormality on chest x-ray REJI (acute kidney injury) Urgency of micturition Urinary hesitancy Nocturia more than twice per night Benign prostatic hyperplasia with weak urinary stream Epidermal inclusion cyst Atelectasis Fecal incontinence Flank lipoma Asthma-COPD overlap syndrome IBS (irritable bowel syndrome) Umbilical hernia Diabetes Arthritis Back pain GERD (gastroesophageal reflux disease) Bipolar 1 disorder Anxiety Depression Elevated cholesterol Tension pneumothorax, spontaneous Hypertension Asthma
[2024-12-05 12:26] VITALS: BP 111/64; PULSE 83; RESP 19; TEMP 36.7; O2SAT 95
== END 2024-12-05 12:27 | disposition home or self-care (01) ==
PROVIDERS: Emergency Provider Emergency Medicine; PCP Internal Medicine
DX: L24.5 Irritant contact dermatitis due to other chemical products (principal)
CPT/HCPCS: 99283; 99284

== ENCOUNTER 2025-01-13 10:04 | Outpatient (REF) | payer OTHER, SELFPAY ==
--- OUTSIDE RECORDS SUMMARY | 2025-01-13 10:32 | XMS_ITS | Patient Health Record ---
Author Organization [facility] enter Address [address] [place] [address] Care Team Providers Care Electric Motor Assembler Name Role Phone Monique Reyes Primary Care Provider Zeina laurent Reason For Referral No Information Medications Medication SIG (Take, Route, Frequency, Duration) Notes Start Date End Date Status Citalopram Hydrobromide 20 MG take 1 tab let by oral route every day Oral (Cristopher-) 10/13/2013 Active busPIRone HCl 7.5 MG take 1 tablet by or al route 3 times every day Oral (Cristopher-) 10/13/2013 Active Albuterol Sulfate (2.5 MG/3ML) 0.083% inhale 3 milliliter by nebulization route every 6 hours as needed Inhalation (Cristopher-) 07/23/2013 Active hydrOXYzine HCl 25 MG take 1 tablet by o ral route 3 times every day as needed. Oral (Cristopher-) 10/13/2013 Active ProAir HFA 108 (90 Base) MCG/ACT inhale 2 puff by inhalation route every 4 - 6 hours as needed Inhalation (Cristopher-) 11/10/2013 Active hydroCHLOROthiazide 25 MG take 1 tablet by oral route every day Oral (Cristopher-) 11/10/2013 Active Norvasc 10 MG take 1 tablet by ora l route every day Oral (Cristopher-) 11/10/2013 Active Advair Diskus 250-50 MCG/DOSE inhale 1 p uff by inhalation route 2 times every day in the morning and evening approximately 12 hours apart Inhalation (Cristopher-) 11/10/2013 Active Plan Of Treatment No Information Insurance Providers Payer Name Payer Address Payer Phone Subscriber Number Group Number Insured Name Patient Relationship to Insured Coverage Start Date Coverage End Date [employer] [address] [place], [place] [id number] Francisco J Romeo Self - patient is the insured
--- OUTSIDE RECORDS SUMMARY | 2025-01-13 10:32 | XMS_ITS | Encounter Summary ---
Author Organization [email or web address] Address [address] [place] [address] Care Team Providers Care Transport Manager Name Role Phone Chun Porras MD Primary Care Provide r Lynsey Madison PharmD Unavailable [phone] Reason for Visit * Reason Comments Med Refill Encounter Details Date Type Department Care Team ([facility] st Contact Info) Description 04/28/2024 Refill [facility] [address] [place] [address] Lynsey Madison, PharmD [address] [place] [address] Type 2 diabetes mellitus without complication, unspecified whether half-way insulin use ([facility]) Social History Tobacco Use Types [...] Care Team (Late st Contact Info) Description 02/05/2025 11:00 AM EDT Clinical Support [facility] [address] [place] [phone] Maritza Mejia, SANDRA [address] [place] [address] 03/11/2025 1:00 PM EDT Office Visit [facility] [address] [place] [phone] Chun Porras MD [address] [place] [phone] documented as of this encounter Goals Goal Patient Goal Type Associated Problems Recent Progress Patient-Stated? 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
--- OUTSIDE RECORDS SUMMARY | 2025-01-13 10:33 | XMS_ITS | Clinical Summary ---
Author Organization [facility] Facility Address [address] [address] Care Team Providers Care Instructor Dancing Name Role Phone Chun Brennan MD Primary [...] age to complete this topic Insurance [address] [place] [phone] [facility] [address] [place] [phone] [address] [place] [id number] Care Teams Instructor Dancing Relationship Specialty Start Date End Date Chun Brennan MD PCP - General 07/25/20
[2025-01-13 11:43] LABS: Prostate Specific Antigen 1.58 ng/mL (<0.05-4.0)
== END 2025-01-13 10:05 | disposition home or self-care (01) ==
LOC: HO.LAB 10:04
PROVIDERS: PCP Internal Medicine; Visit Provider Urology
DX: N40.1 Benign prostatic hyperplasia with lower urinary tract symptoms (principal)
CPT/HCPCS: 36415; 84153

== ENCOUNTER 2025-01-20 13:02 | Outpatient (AMB) | payer MEDICARE, MEDICAID, SELFPAY ==
--- NOTE | 2025-01-20 13:07 | MHC.OFFVIS ---
Intake Visit Reasons: 1y/PSA/PVR/UA(psa?) Intake Note: Patient is Present for1Y PVR/PSA/UA Urology Med: Terazosin Antibiotic Allergy:None Blood Thinner: Aspirin Last PVR:87ML'S Todays PVR: 0ML'S Wet Machine Operator Required: Yes Wet Machine Operator Language: Ecuadorean Allergies No Known Allergies (No Known Allergies*) Allergy (Verified 01/20/25 13:09) Medication List - Last Reconciled 01/20/25 by Shahriar Lee MD albuterol sulfate 2.5 mg (3 mL) inhalation Q4H PRN 30 days albuterol sulfate 90 mcg/actuation 2 puffs PO Q4-6H PRN 30 days amitriptyline 1 tab PO BEDTIME amlodipine 1 tab PO QAM aspirin 1 tab PO QAM atorvastatin 1 tab PO BEDTIME bismuth subsalicylate (Bismuth) 2 tabs PO QID 14 days blood sugar diagnostic (FreeStyle Lite Strips) As directed cetirizine 20 mg (2 x 10 mg) PO DAILY PRN dicyclomine 20 mg PO QID 30 days doxycycline hyclate 100 mg PO BID 14 days duloxetine 1 cap PO QAM myndadjaysv-homhrwbws-rnjufutl 200-62.5-25 mcg (Trelegy Ellipta) 1 inh inhalation DAILY 30 days gabapentin mg PO hydrocortisone 1% 1 appl topical BID PRN ipratropium-albuterol 0.5 mg-3 mg(2.5 mg base)/3 mL 3 mL inhalation Q4H PRN lancets (TRUEplus Lancets) As directed lidocaine 5% (Lidoderm) 1 patch topical DAILY metformin ER 500 mg PO BID metoprolol tartrate 1 tab PO metronidazole 1,000 mg (2 x 500 mg) PO BID 14 days montelukast 10 mg PO BEDTIME nebulizers As directed omeprazole 40 mg PO DAILY 30 days rabeprazole (AcipHex) 20 mg PO BID ramelteon 8 mg PO DAILY simethicone 180 mg PO QID 30 days terazosin 5 mg PO BEDTIME 90 days tramadol 50 mg PO TID PRN HPI Comments Details: Francisco J is Ecuadorean-speaking male. He is a patient of Dr. Brennan. He is seen for the following urologic conditions - lower urinary tract symptoms PVR 0 cc Yearly follow-up PSA 1.6 Ecuadorean translation performed by qualified clinical specialist medical device Follow-up from urgency with postvoid dribbling On terazosin 5 mg May follow with primary care. Reassess with Urology if change in status PSA any needs to be checked every 2-3 years Lower urinary tract symptoms Further evaluation of symptoms - urgency with postvoid dribbling - initial improvement with terazosin Current treatment terazosin 5 mg Has post terminal dribbling Cystoscopy 06/04 open bladder neck [facility] Medical History (Updated 12/06/24 @ 00:01 by Georgia Trujillo) New abnormality on chest x-ray REJI (acute kidney injury) Urgency of micturition Urinary hesitancy Nocturia more than twice per night Benign prostatic hyperplasia with weak urinary stream Epidermal inclusion cyst Atelectasis Fecal incontinence Flank lipoma Asthma-COPD overlap syndrome IBS (irritable bowel syndrome) Umbilical hernia Diabetes Arthritis Back pain GERD (gastroesophageal reflux disease) Bipolar 1 disorder Anxiety Depression Elevated cholesterol Tension pneumothorax, spontaneous Hypertension Asthma Surgical History History of esophagogastroduodenoscopy (EGD) S/P excision of lipoma (02/20/23) History of excision of mass (12/13/22) Hx of colonoscopy Hx of tracheostomy History of lung surgery Hx of hernia repair Family History Mother Stomach cancer Brother Prostate cancer Brother Prostate cancer Social History Household Members: None Housing: Apartment Do you presently have visiting nurse or other home services: No Alcohol intake: current Alcohol intake frequency: a few times a month Alcohol type: beer Patient Tobacco Use Status: Never used Tobacco e-Cigarette/Vaping Use: Never Used Second Hand Smoke Exposure: No Substance Use Type: Marijuana Advance Directives Date on File: 03/28/21 service: No Current occupational status: unemployed Review of Systems Const Denies chills and Denies fever(s) Card Reports no additional complaints and Denies syncope Resp Denies cough GI Denies abdominal pain and Denies heartburn Reports as per HPI and Denies change in libido Neuro Denies syncope Psych Denies change in libido Endo Denies change in libido Physical Exam Const General: cooperative, healthy appearing, comfortable and no acute distress Orientation/consciousness: patient oriented x3 HEENT Face and sinus: Yes normal facial exam Mouth: moist mucous membranes Neck Neck: Yes normal visual inspection, Yes full ROM and Yes trachea midline Chest Chest palpation & inspection: normal inspection of the chest Resp Effort & Inspection: normal respiratory effort, able to speak in complete sentences and no respiratory distress GI Inspection: Yes normal to inspection Back/Spine/Pelvis Cervical Spine: normal cervical lordosis Thoracic/Lumbar Spine: thoracic and lumbar spine normal to inspection Skin General skin exam: no rashes or lesions noted Neuro General: patient oriented x3, gait normal, tone normal and moves all extremities Extrem General: Yes normal to inspection and Yes capillary refill normal Office Procedures Post Void Residual Post Residual Void Post Void Residual (PVR): 0 [id number] Void Residual by ultrasound Assessment & Plan Assessment & Plan (1) BPH loc w urin obs/LUTS: Code(s): N40.1 - Benign prostatic hyperplasia with lower urinary tract symptoms Category: Medical Plan P.r.n. follow-up Medications: Refilled terazosin 5 mg PO BEDTIME 90 caps 3RF 90 days N13.8 - Other obstructive and reflux uropathy, N40.1 - Benign prostatic hyperplasia with lower urinary tract symptoms Patient Instructions: This note is constructed using voice recognition software. While every effort has been made to ensure accuracy metallographic technician errors may have been included. Imaging studies, laboratory and physical exam results were discussed and reviewed in detail. No major barriers to patient understanding were identified. An opportunity to ask questions regarding the treatment plan was provided. All questions were answered. The patient expressed understanding and agreement with the above treatment plan. The patient is aware they should contact our office by phone for worsening of their current condition or the appearance of new urologic symptoms. Compliance is encouraged with any medications and followup testing that is ordered. It is a privilege to participate in the urologic care of your patient. If you have any questions or concerns regarding treatment for the above conditions, or other urologic issues, please do not hesitate to contact me. The office telephone contact is [phone]. Sincerely, Dr Shahriar Lee MD, [facility] - Urology Compassionate Specialist Care for the Genitourinary System Coding Level of Care Code Est Pt Level 4 (27462) Diagnoses BPH loc w urin obs/LUTS N40.1 CPT Codes Post Residual Void - PVR CPT Code: 34986-Wtvw Void Residual by ultrasound ([id number])
--- OUTSIDE RECORDS SUMMARY | 2025-01-20 13:52 | XMS_ITS | Encounter Summary ---
Author Organization [employer] Address [address] [facility] [address] [place] [address] Care Team Providers Care Therapeutic Consultant Name Role Phone Chun Porras MD Primary Care Provide r Lynsey Madison PharmD Unavailable [phone] Reason for Visit * Reason Comments Med Refill Encounter Details Date Type Department Care Team ([facility] st Contact Info) Description 04/28/2024 Refill [facility] [address] [place] [address] Lynsey Madison, PharmD [address] [place] [address] Type 2 diabetes mellitus without complication, unspecified whether residential insulin use ([facility]) Social History Tobacco Use Types [...] Description 02/05/2025 11:00 AM EDT Clinical Support [facility] [address] [place] [id number] Maritza Mejia, SANDRA [address] [place] [address] 03/11/2025 1:00 PM EDT Office Visit [facility] [address] [place] [address] Chun Porras MD [address] [place] [phone] documented as of this encounter Goals Goal Patient Goal Type Associated Problems Recent Progress Patient-Stated? 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
--- OUTSIDE RECORDS SUMMARY | 2025-01-20 13:53 | XMS_ITS | Clinical Summary ---
Author Organization [facility] Facility Address [address] [address] Care Team Providers Care Furniture Inspector Name Role Phone Chun Brennan MD Primary [...] of 1 - PCV) 2008 Influenza Vaccine (#1) 2025 Hepatitis B Vaccine Aged Out No longe r eligible based on patient's age to complete this topic Insurance [address] [place] [id number] [facility] [address] [place] [id number] [address] [place] [phone] Care Teams Furniture Inspector Relationship Specialty Start Date End Date Chun Brennan MD PCP - General 07/25/20
--- OUTSIDE RECORDS SUMMARY | 2025-01-20 13:53 | XMS_ITS | Data Portability ---
Author Organization [employer] [facility], [facility] Address [address] [place] [address] Care Team Providers Care Rn Outpatient Surgery Name Role Phone HIM DAVIN OTHER Assessment Encounter Date Assessment Date Assessment LastModified by Organization Details LastModified Time 10/04/2024 10/04/2024 As noted, we were called to see this patient regarding concerns of HTN. Evaluation in the field was performed by my agency manager colleague, as noted above, I provided real-time [...] ED. I called in an expect at [facility]. Impression: Chest pain, shortness of breath, hypertension. Plan: ED Disposition: We discussed the situation and I recommended referral to the emergency department. This was based on chest pain. [place] [id number] Not available 10/04/2024 13:48:24 Plan of Treatment Reminders Order Date Submit Date Provider Last Modified By Organization Details Last Modified Time Details Appointments None recorded. Lab None recorded. Referral None recorded. Procedures None recorded. Surgeries None recorded. Imaging electrocard iogram 2024 025 WILLI [facility], [address] [place] [address], [id number] 15:46:07 Medication Orders aspirin 81 mg chewable tablet [email or web address] [facility], [address] [place], [place], [id number], 13:48:03 Patient TargetsNo targets recorded. Patient InstructionsNo instructions recorded. Reason for Referral None Reported. Results Created Date Observation Date Name Description Value Unit Range Abnormal Flag Note LastModifiedBy Organization Detail LastModifiedTime 10/05/1910/04/2024 kenneth carrascogr am No observ ation record ed. [email or web address] [address], [phone] 10/04/2024 17:13:49 Result Notes None recorded. Medical Equipment None Reported. [...] Body temperature Respiratory rate Body height Systolic And Diastolic Provider Name and Address Organization Details Last Updated DateTime 5 76 /min 33874.6 4 g 97 % 97 % 98.3 [degF] 16 /min 177.8 cm 145/76 mm[Hg] Not Available [facility] - production 13:20:55 Social History None recorded. Functional Status None recorded. Mental Status None recorded. Family History Nothing Reported. Medical History No medical history recorded. Past Encounters Encounter ID Performer Location Encounter Start Date Encounter Closed Date Diagnosis/Indication Diagnosis SNOMED-CT Code Diagnosis ICD10 Code Diagnosis Note [id number] Diogo Otto MD Main - [facility] [address] [place] [phone] 10/04/2024 13:20:53 10/05/2024 14:15:36 Chest pain 41655231 R07.9 Health Concerns Section Related Observation LastModified by Organization Detai ls LastModified Time None Recorded Concern Status LastModified by Organization Details LastModified Time None Recorded Advance Directives Directive None Recorded Payers Insurance Date Sequence Insurance Name Policy Number Policy Rashid Covered Member ID Rashid Member ID Guarantor Name 10/04/2024 1 [facility] - DOS ON OR AFTER 2022 - DUAL ELIGIBLE - LONG-TERM OPTIONS AND ONE CARE (MEDICARE REPLACEMENT/ADV ANTAGE - HMO) Francisco J Garcia [id number] Francisco J Garcia Notes Date Note Type Note Provider Name and Address Organization Details Recorded Time 10/04/2024 text/html [facility] Nurse Triage Notes (Cas Almeida): Reason For Request: blood pressure high Denies: History of Heart Attack, in the setting of active chest pain Active Chest pain, radiates to neck jaw and or arm Diaphoretic/Sweati ng Describes as crushing Sudden onset of nausea/Vomiting and shortness of breath. Shortness of Breath Unable to speak in full sentences without distress Chief Complaints: High Blood Pressure PMH: Hypertension, Diabetes Mellitus Type 2, Asthma PMH Reviewed at 10/04/2024 - 10:20 Allergies Reviewed at 10/04/2024 10:20 Comments: Icu Specialist verified the Pt.'s name//address and phone number. [...] feeling anxious about same- Denies confusion - Driver/Sales Workers provider in place. Gastroenterology Nurse Practitioner Organization Information for Alice Gilmore Business Legal Name: [employer]. Address: [address] [place] [id number], Systems Operator: Trae Cotter MD CLIA No.: [id number] Gastroenterology Nurse Practitioner POC Test Results from Alice Gilmore EKG (13:32:45) EKG test performed. Attachments uploaded as part of this test result can be found under Documents section. .................. .................. .................. .................. .................. .................. .................. ............... Gastroenterology Nurse Practitioner Note From Alice Gilmore: [facility] makes pt contact. He answers the door and invites [facility] inside his small apartment. He is ambulating w/ a cane and moving about unencumbered. He sits on the sofa w/o pain or discomfort. Pt is not in acute distress. He is not tripoding, no stridor or sonorous respirations are noted. No facial droop, one-sided weakness, or slurred speech are observed and he is not bleeding anywhere. Pt speaks limited broken Sinhala, so [employer] developer services are utilized. Pt endorses GALLARDO, CP, [...] is denying recent illness, fevers/chills, or n/v/d. [facility] obtains vital signs and pt is assessed. Lung sounds are clear, cp is not reproducible w/ palpation or compression of the chest wall and abdomen is soft and nontender w/ no guarding, distension, or pulsating masses noted. [facility] does not appreciate any swelling to the LEs at this time. A 12-lead EKG is obtained. [facility] contacts [facility] and discusses the above and [facility] and [facility] agree pt should be evaluated in the ER for cardiac enzymes. [facility] speaks to pt through the tibco developer and expresses concerns. Pt is amendable to transport to [facility]. [facility] administers 324mg baby aspirin PO and instructs pt to chew and swallow. Pt is transported by [facility]. [facility] is clear. Report completed by JAMES Gilmore [id number]. [facility] Medication Orders: aspirin 81 mg chewable tablet: Administered .................. .................. .................. .................. .................. .................. .................. ............... [facility] Consulted: Diogo Otto .................. .................. .................. .................. .................. .................. .................. ............... Disposition: Fulfilled Diogo Otto MD [address] [place] [address],[address], [place], [phone], STEF - YESSY BARAJAS 10/04/2024 14:53:25
--- OUTSIDE RECORDS SUMMARY | 2025-01-20 13:53 | XMS_ITS | Patient Health Record ---
Author Organization [facility] Address [address] [place] [address] Care Team Providers Care Bottom Sprayer Name Role Phone Monique Reyes Primary Care [...] Date Coverage End Date MEMO [employer]ON [address] [place], [place] [id number] Francisco J Romeo Self - patient is the insured
== END 2025-01-20 13:41 | disposition home or self-care (01) ==
LOC: HO.HUSH 13:02
PROVIDERS: PCP Internal Medicine; Visit Provider Urology
DX: N40.1 Benign prostatic hyperplasia with lower urinary tract symptoms (principal)
CPT/HCPCS: 99214

== ENCOUNTER → 2025-01-20 13:02 | Outpatient (BNVA) | payer OTHER, SELFPAY | PROVIDERS: PCP Internal Medicine; Visit Provider Urology | DX: N40.1 Benign prostatic hyperplasia with lower urinary tract symptoms (principal); N13.8 Other obstructive and reflux uropathy | CPT/HCPCS: 51798; 99212 ==

== ENCOUNTER 2025-02-03 20:29 | Emergency (ER) | payer OTHER, SELFPAY ==
--- NOTE | ~2025-02-03 | XR_ITS ---
CLINICAL HISTORY: dyspnea, pedal edema Chest X-ray, 2 Views COMPARISON: CR - XR CHEST 2V - 10/04/24 17:07 EDT FINDINGS: No consolidation. Bilateral mid to lower lung atelectasis and/or scarring. No pleural effusion. No pneumothorax. No cardiomegaly. No acute fracture. Chronic right rib fractures. IMPRESSION: No acute findings. Nonemergent/incidental findings above. This document has been electronically signed by: Amos Puentes MD on 02/03/2025 21:15:21
[2025-02-03 20:48] VITALS: BP 129/84; PULSE 70; RESP 18; TEMP 36.4; O2SAT 95; BMI 26.6
--- NOTE | 2025-02-03 20:48 | ED.GENADULT ---
HPI - General Adult General Chief complaint: Extremity Injury, Lower Stated complaint: both feet swollen, sent from urgent care Time Seen by Provider: 02/04/25 00:23 Source: patient Mode of arrival: ambulatory Limitations: no limitations History of Present Illness ED Provider: Dr. Cadence Krishnamurthy HPI narrative: Patient comes to the emergency room complaining of 1 week of lower extremity edema. Patient states that when he is lying down he is legs are not swollen. But if he is outside walking, towards the end of the day his legs look more swollen. Denies any chest pain, earlier today reported shortness of breath but states that he does not really feel short of breath. Patient believes it is because of his asthma, uses inhalers and then the shortness of breath resolved. Related Data Home Medications ?Medication ?Instructions ?Recorded ?Confirmed amitriptyline 100 mg tablet 1 tab PO BEDTIME 07/25/20 01/20/25 aspirin 81 mg tablet,delayed 1 tab PO QAM 07/25/20 01/20/25 release atorvastatin 40 mg tablet 1 tab PO BEDTIME 07/25/20 01/20/25 duloxetine 60 mg capsule,delayed 1 cap PO QAM 03/28/21 01/20/25 release amlodipine 10 mg tablet 1 tab PO QAM 09/08/21 01/20/25 metoprolol tartrate 50 mg tablet 1 tab PO 09/08/21 01/20/25 nebulizers 10/26/22 01/20/25 tramadol 50 mg tablet 50 mg PO TID PRN 08/16/23 01/20/25 metformin 500 mg tablet,extended 500 mg PO BID 12/24/23 01/20/25 release 24 hr blood sugar diagnostic (FreeStyle #10 ea 02/06/24 01/20/25 Lite Strips) lancets 33 gauge (TRUEplus Lancets) #100 ea 02/06/24 01/20/25 ramelteon 8 mg tablet 8 mg PO DAILY 02/21/24 01/20/25 gabapentin 300 mg capsule mg PO 05/06/24 01/20/25 Previous Rx's ?Medication ?Instructions ?Recorded ipratropium 0.5 mg-albuterol 3 mg 3 ml inhalation Q4H PRN shortness 06/28/22 (2.5 mg base)/3 mL nebulization of breath or wheezing #90 mL soln lidocaine 5 % topical patch 1 patch topical DAILY #15 ea 08/25/22 (Lidoderm) dicyclomine 20 mg tablet 20 mg PO QID 30 days #120 tabs 05/06/24 rabeprazole 20 mg tablet,delayed 20 mg PO BID #60 tabs 05/06/24 release (AcipHex) simethicone 180 mg capsule 180 mg PO QID 30 days #120 caps 05/06/24 bismuth subsalicylate 262 mg 2 tab PO QID 14 days #112 tabs 05/27/24 chewable tablet (Bismuth) doxycycline hyclate 100 mg tablet 100 mg PO BID 14 days #28 tabs 05/27/24 metronidazole 500 mg tablet 1,000 mg (2 x 500 mg) PO BID 14 05/27/24 days #56 tabs fluticasone fur. 200 mcg-umeclid 1 inh inhalation DAILY 30 days #60 08/06/24 62.5 mcg-vilant 25 mcg ea inhalat.powder (Trelegy Ellipta) albuterol sulfate 2.5 mg/3 mL 2.5 mg (3 mL) inhalation Q4H PRN 10/26/24 (0.083 %) solution for nebulization shortness of breath or wheezing 30 days #360 mL montelukast 10 mg tablet 10 mg PO BEDTIME #30 tabs 11/04/24 omeprazole 40 mg capsule,delayed 40 mg PO DAILY 30 days #30 caps 11/19/24 release albuterol sulfate 90 mcg/actuation 2 puff PO Q4-6H PRN Shortness Of 11/20/24 aerosol inhaler Breath Or Wheezing 30 days #1 ea cetirizine 10 mg tablet 20 mg (2 x 10 mg) PO DAILY PRN 12/05/24 allergy symptoms #30 tabs hydrocortisone 1 % topical cream 1 appl topical BID PRN itching 12/05/24 #28.35 grams terazosin 5 mg capsule 5 mg PO BEDTIME 90 days #90 caps 01/20/25 furosemide 20 mg tablet (Lasix) 20 mg PO DAILY #4 tabs 02/04/25 Allergies Allergy/AdvReac Type Severity Reaction Status Date / Time No Known Allergies (No Known Allergy Verified 02/03/25 20:51 Allergies*) Review of Systems Review of Systems: Constitutional : No Weight loss, No Fever, No Chills, No Night Sweats, No Fatigue, No Malaise ENT/Mouth : No Hearing loss, No Ear Pain, No Nasal Congestion, No Sinus Pain, No Hoarseness, No sore throat, No Rhinorrhea, No Swallowing Difficulty Eyes: No Eye Pain, No Swelling, No Redness, No Foreign Body, No Discharge, No Vision Changes Cardiovascular : No Chest Pain, No SOB, No Dyspnea on Exertion, No Orthopnea, complaining of lower extremity edema with prolonged standing Respiratory : No Cough, No Sputum, No Wheezing, No Smoke Exposure, No Dyspnea Gastrointestinal : No Nausea, No Vomiting, No Diarrhea, No Constipation, No abdominal Pain, No Hematochezia, No Melena Genitourinary : no irregular bleeding, No Dysuria, No Urinary Frequency, No Hematuria, No Urinary Incontinence, No Urgency, No Flank Pain, No Urinary Flow Changes, No Hesitancy Musculoskeletal : No joint pain, No Myalgias, No Joint Swelling Skin : No Skin Lesions, No rash Neuro : No Weakness, No Numbness, No Paresthesias, No Loss of Consciousness, No Dizziness, No Headache Psych : No Anxiety/Panic, No Depression, No SI/HI/AH/VH, No Social Issues, Heme/Lymph: No Bruising, No Bleeding,No Lymphadenopathy Endocrine : No Polyuria, No Polydipsia, No Temperature Intolerance [facility] Past Medical History Medical History New abnormality on chest x-ray REJI (acute kidney injury) Urgency of micturition Urinary hesitancy Nocturia more than twice per night Benign prostatic hyperplasia with weak urinary stream Epidermal inclusion cyst Atelectasis Fecal incontinence Flank lipoma Asthma-COPD overlap syndrome IBS (irritable bowel syndrome) Umbilical hernia Diabetes Arthritis Back pain GERD (gastroesophageal reflux disease) Bipolar 1 disorder Anxiety Depression Elevated cholesterol Tension pneumothorax, spontaneous Hypertension Asthma Surgical History History of esophagogastroduodenoscopy (EGD) S/P excision of lipoma (02/20/23) History of excision of mass (12/13/22) Hx of colonoscopy Hx of tracheostomy History of lung surgery Hx of hernia repair Family History Family History Mother Stomach cancer Brother Prostate cancer Brother Prostate cancer Social History Social History Household Members: None Housing: Apartment Do you presently have visiting nurse or other home services: No Alcohol intake: current Alcohol intake frequency: holidays/special occasions only Alcohol type: beer Patient Tobacco Use Status: Never used Tobacco Smoked in Last 30 Days: No e-Cigarette/Vaping Use: Never Used Second Hand Smoke Exposure: No Use of substances other than those prescribed or required for medical reasons: Yes Substance Use Type: Marijuana Advance Directives: Yes Advance Directives on File: Yes Advance Directives Date on File: 03/28/21 Do you have a plan to hurt others: No Plan service: No Current occupational status: unemployed Physical Exam ED Exam Exam: Appearance: Alert. Oriented X3. No acute distress. Eyes: Pupils equal, round and reactive to light. ENT: Pharynx normal. Neck: Normal inspection. Neck supple. No lymph nodes noted. No crepitus CVS: Normal heart rate and rhythm. Pulses normal. Normal S1 and S2 Respiratory: No respiratory distress. Breath sounds normal. No Wheezing. No rales Abdomen: Soft and nontender. No rigidity. No distention. Skin: Skin warm and dry. Normal skin color. Normal skin turgor. Extremities: +1 pitting edema bilaterally, no pain to palpation No Lacerations. No Rash Neuro: Oriented X 3. No motor deficit. No sensory deficit. Moving all extremities. No slurred speech. CN 2 through 12 grossly intact Psych: calm, cooperative, normal affect Vital Signs: Vital Signs - 24 hr 02/03/25 20:48 02/03/25 21:15 02/03/25 21:19 Temperature 97.5 F 97.5 F 97.3 F Pulse Rate 70 70 67 Respiratory Rate 18 18 12 Blood Pressure 129/84 129/84 129/78 Pulse Oximetry 95 95 94 Oxygen Delivery Method Room Air Room Air Room Air 02/04/25 00:00 Temperature 98.2 F Pulse Rate 79 Respiratory Rate 18 Blood Pressure 127/57 L Pulse Oximetry 94 Oxygen Delivery Method Room Air BMI result Body Mass Index 26.6 Course Course Course Narrative: This is a rapid medical exam performed by Gilberto Green NP: Additional HPI, ROS, PE not included below will be deferred to primary provider. Patient is a 64-year-old male with history of RV dilation, Merlos's esiphagus, H. pylori, JACQUI, asthma-COPD overlap, IBS, BPH, GERD presenting with one week of bilateral lower extremity edema and dyspnea. Denies history of HF. Referred to ED from urgent care for further evaluation. Plan: EKG, CXR, labs Medical Decision Making Medical Decision Making [facility] Narrative: My interpretation of labs: No significant abnormality in patient's hematology or chemistry, BNP negative Chest x-ray negative Patient physical exam, I do not believe that patient has a DVT. Patient has no pain in his lower extremities. Given the patient's history and findings, patient likely has venous insufficiency Patient will be discharged with Lasix. I discussed with the patient that at this time of night I do not recommend starting Lasix because of he will be up all night urinating and will not get rest. Patient has no signs of pulmonary edema, therefore, the patient's 1st dose of Lasix can wait until tomorrow. Differential Diagnosis Differential Diagnoses: The differential diagnosis associated with the presentation includes (CHF, lower extremity edema, DVT) Lab Data [facility] Lab Attestation statement: I reviewed the patient's lab results. 02/03/25 21:10 02/03/25 21:10 Labs: Lab Results 02/03/25 Range/Units 21:10 WBC 9.5 (4.8-10.8) X10*3/uL RBC 4.65 (4.60-5.80) X10*6/uL Hgb 13.8 L (14.0-18.0) g/dl Hct 39.9 L (42.0-52.0) % MCV 85.8 (80.0-98.0) fL MCH 29.7 (27.0-33.0) pg MCHC 34.6 (31.0-36.0) g/dl RDW 12.9 (11.0-16.0) % Plt Count 240 (160-400) X10*3/uL MPV 9.9 (9.4-12.4) fL Immature Gran % (Auto) 0.2 (0.0-0.4) % Neut % (Auto) 71.2 (45-73) % Lymph % (Auto) 16.2 L (20-40) % [place] % (Auto) 10.2 (2-11) % Eos % (Auto) 1.9 (0-4) % Baso % (Auto) 0.3 (0-2) % Lymph # (Auto) 1.5 (1.2-4.9) X10*3/uL [place] # (Auto) 1.0 (0.1-1.2) X10*3/uL Eos # (Auto) 0.2 (0.0-0.4) X10*3/uL Baso # (Auto) 0.0 (0.0-0.2) X10*3/uL Abs Immat Gran (auto) 0.02 (0.00-0.03) X10*3/uL Absolute Neuts (auto) 6.8 (2.0-8.3) x10*3/uL Absolute Nucleated RBC 0.000 (0.0-0.012) X10*3/uL Nucleated RBC % (auto) 0.0 (0.0-0.2) /100WBC PT 10.9 (10.9-12.4) SEC INR 1.0 (0.9-1.1) Sodium 138 (135-145) mmol/L Potassium 4.0 (3.3-5.1) mmol/L Chloride 106 (96-108) mmol/L Carbon Dioxide 22 (22-29) mmol/L Anion Gap 14 (12-20) BUN 20 H (9-16) mg/dL Creatinine 1.14 (0.5-1.4) mg/dL Estim Creat Clear Calc 65.8 Estimated GFR > 60 Random Glucose 149 H (60-115) mg/dL Calcium 9.2 (8.4-10.2) mg/dL Total Bilirubin 0.4 (0.0-1.0) mg/dL AST 27 (5-37) U/L ALT 27 (0-40) U/L Alkaline Phosphatase 88 (39-117) U/L B-Natriuretic Peptide 44 (<100) pg/mL Total Protein 7.5 (6.5-8.0) g/dL Albumin 4.6 (3.5-5.0) g/dL Independent Interpretation I performed an independent interpretation of an: Plain X-Ray Radiology Impression Discussion of test interpretation with radiology: I have reviewed the radiologist's reading. Radiologist Impression: No consolidation. Bilateral mid to lower lung atelectasis and/or scarring. No pleural effusion. No pneumothorax. No cardiomegaly. No acute fracture. Chronic right rib fractures. Discharge Plan Discharge Clinical Impression: Bilateral edema of lower extremity Patient Disposition: Home, Self-Care Instructions: Leg Edema (ED) Additional Instructions: When you sleep, make sure that you have several pillows under your feet, tried to keep your feet as elevated as long as possible. Also, please make sure to use compression stockings. Please follow-up with your primary care physician tomorrow. If you have any worsening or new symptoms, please return to the emergency room or call 911 Prescriptions: New furosemide [Lasix] 20 mg tablet 20 mg PO DAILY Qty: 4 0RF No Action bismuth subsalicylate [Bismuth] 262 mg tablet,chewable 2 tab PO QID 14 Days Qty: 112 0RF doxycycline hyclate 100 mg tablet 100 mg PO BID 14 Days Qty: 28 0RF metronidazole 500 mg tablet 1,000 mg PO BID 14 Days Qty: 56 0RF Trelegy Ellipta 200-62.5-25 mcg blister with device 1 inh inhalation DAILY 30 Days Qty: 60 7RF albuterol sulfate 2.5 mg /3 mL (0.083 %) solution for nebulization 2.5 mg inhalation Q4H PRN (Reason: shortness of breath or wheezing) 30 Days Qty: 360 7RF montelukast 10 mg tablet 10 mg PO BEDTIME Qty: 30 4RF omeprazole 40 mg capsule,delayed release(DR/EC) 40 mg PO DAILY 30 Days Qty: 30 6RF albuterol sulfate 90 mcg/actuation HFA aerosol inhaler 2 puff PO Q4-6H PRN (Reason: Shortness Of Breath Or Wheezing) 30 Days Qty: 1 2RF atorvastatin 40 mg tablet 1 tab PO BEDTIME aspirin 81 mg tablet,delayed release (DR/EC) 1 tab PO QAM amitriptyline 100 mg tablet 1 tab PO BEDTIME duloxetine 60 mg capsule,delayed release(DR/EC) 1 cap PO QAM amlodipine 10 mg tablet 1 tab PO QAM metoprolol tartrate 50 mg tablet 1 tab PO ipratropium-albuterol 0.5 mg-3 mg(2.5 mg base)/3 mL solution for nebulization 3 ml inhalation Q4H PRN (Reason: shortness of breath or wheezing) Qty: 90 0RF Rx Instructions: until breathing returns to target peak flow/parameters lidocaine [Lidoderm] 5 % adhesive patch,medicated 1 patch topical DAILY Qty: 15 0RF Rx Instructions: leave on most painful area for up to 12 hrs cetirizine 10 mg tablet 20 mg PO DAILY PRN (Reason: allergy symptoms) Qty: 30 0RF hydrocortisone 1 % cream 1 appl topical BID PRN (Reason: itching) Qty: 28.35 0RF Rx Instructions: apply to face (DME) nebulizers [facility] See Rx Instructions .Route Rx Instructions: As directed metformin 500 mg tablet extended release 24 hr 500 mg PO BID Rx Instructions: 1000 mg in the morning and 500 mg at night ramelteon 8 mg tablet 8 mg PO DAILY gabapentin 300 mg capsule PO dicyclomine 20 mg tablet 20 mg PO QID 30 Days Qty: 120 6RF simethicone 180 mg capsule 180 mg PO QID 30 Days Qty: 120 6RF Rx Instructions: after meals rabeprazole [AcipHex] 20 mg tablet,delayed release (DR/EC) 20 mg PO BID Qty: 60 6RF tramadol 50 mg tablet 50 mg PO TID PRN (DME) FreeStyle Lite Strips Strip See Rx Instructions .ROUTE BID Qty: 10 Rx Instructions: As directed (DME) lancets [TRUEplus Lancets] 33 gauge [facility] See Rx Instructions .ROUTE .MEDSUPPLY Qty: 100 Rx Instructions: As directed terazosin 5 mg capsule 5 mg PO BEDTIME 90 Days Qty: 90 3RF Print Language: French
--- NOTE | 2025-02-03 20:49 | ECG_ITS ---
Test Reason : SOB Blood Pressure : */* mmHG Vent. Rate : 64 BPM Atrial Rate : 64 BPM P-R Int : 168 ms QRS Dur : 98 ms QT Int : 408 ms P-R-T Axes : 55 3 29 degrees QTcB Int : 420 ms Normal sinus rhythm Normal ECG When compared with ECG of 04-Oct-2024 14:41, No significant change was found Referred By: Helena Green Electronically Signed By: Vazquez Monahan
[2025-02-03 21:15] VITALS: BP 129/84; PULSE 70; RESP 18; TEMP 36.4; O2SAT 95
[2025-02-03 21:16] LABS: MANUAL DIFF FLAG NO
[2025-02-03 21:19] VITALS: BP 129/78; PULSE 67; RESP 12; TEMP 36.3; O2SAT 94
[2025-02-03 21:20] LABS: Hematocrit 39.9 % (42.0-52.0); Hemoglobin 13.8 g/dl (14.0-18.0); Imm Gran Abs Auto 0.02 X10*3/uL (0.00-0.03); Imm Gran Pct Auto 0.2 % (0.0-0.4); Lymphocytes Absolute Auto 1.5 X10*3/uL (1.2-4.9); Mean Corpuscular HGB Conc 34.6 g/dl (31.0-36.0); Mean Corpuscular Hemoglobin 29.7 pg (27.0-33.0); Mean Corpuscular Volume 85.8 fL (80.0-98.0); NRBC Abs Auto 0.000 X10*3/uL (0.0-0.012); NRBC Pct Auto 0.0 /100WBC (0.0-0.2); Platelet Count 240 X10*3/uL (160-400); Red Blood Count 4.65 X10*6/uL (4.60-5.80); White Blood Count 9.5 X10*3/uL (4.8-10.8)
[2025-02-03 21:32] LABS: INTERNATIONAL NORM RATIO 1.0 (0.9-1.1); Prothrombin Time 10.9 SEC (10.9-12.4)
[2025-02-03 21:37] LABS: B Type Natriuretic Peptide 44 pg/mL (<100)
[2025-02-03 21:48] LABS: Alanine Aminotransferase 27 U/L (0-40); Albumin Level 4.6 g/dL (3.5-5.0); Alkaline Phosphatase 88 U/L (39-117); Anion Gap 14 (12-20); Aspartate Amino Transferase 27 U/L (5-37); Blood Urea Nitrogen 20 mg/dL (9-16); Calcium 9.2 mg/dL (8.4-10.2); Carbon Dioxide 22 mmol/L (22-29); Chloride 106 mmol/L (96-108); Creatinine Clr Calc Pharmacy 65.8; Estimated Glomerular Filt Rate > 60; Potassium 4.0 mmol/L (3.3-5.1); Sodium 138 mmol/L (135-145); Total Protein 7.5 g/dL (6.5-8.0)
[2025-02-04] VITALS: BP 127/57; PULSE 79; RESP 18; TEMP 36.8; O2SAT 94
[2025-02-04 01:02] VITALS: BP 127/57; PULSE 79; RESP 18; TEMP 36.8; O2SAT 94
== END 2025-02-04 01:02 | disposition home or self-care (01) ==
PROVIDERS: Registered Nurse Emergency; Emergency Provider Emergency Medicine; PCP Internal Medicine
DX: R60.0 Localized edema (principal); R06.02 Shortness of breath; Z79.899 Other long term (current) drug therapy
CPT/HCPCS: 36415; 71046; 80053; 83880; 85025; 85610; 93005; 99283; 99284

== ENCOUNTER → 2025-02-03 20:49 | Outpatient (BNV) | payer OTHER, SELFPAY | PROVIDERS: Emergency Provider Emergency Medicine; PCP Internal Medicine; Visit Provider Internal Medicine Cardiovascular Disease | DX: R06.02 Shortness of breath (principal) | CPT/HCPCS: 93010 ==

== ENCOUNTER → 2025-02-03 20:50 | Outpatient (BNV) | payer OTHER, SELFPAY | PROVIDERS: PCP Internal Medicine; Visit Provider Radiology Diagnostic Radiology | DX: J44.9 Chronic obstructive pulmonary disease, unspecified (principal) | CPT/HCPCS: 71046 ==

== ENCOUNTER 2025-02-12 12:56 | Outpatient (AMB) | payer OTHER, SELFPAY ==
--- OUTSIDE RECORDS SUMMARY | 2025-02-12 12:59 | XMS_ITS | Clinical Summary ---
Author Organization [facility]ly [facility] Facility Address [address] [address] Care Team Providers Care Rrts Name Role Phone Chun Brennan MD Primary [...] age to complete this topic Insurance [address] [place] [id number] [facility] [address] [place] [id number] [address] [place] [id number] Care Teams Rrts Relationship Specialty Start Date End Date Chun Brennan MD PCP - General 07/25/20
--- OUTSIDE RECORDS SUMMARY | 2025-02-12 12:59 | XMS_ITS | Patient Health Record ---
Author Organization [facility] enter Address [address] [place] [address] Care Team Providers Care Senior Control Systems Engineer Name Role Phone Monique Reyes Primary Care [...] Date Coverage End Date [employer] [address] [place], [place] [id number] Francisco J Romeo Self - patient is the insured
--- NOTE | 2025-02-12 13:02 | MHC.OFFVIS ---
Vital Signs 02/12/25 13:03 Height 5 ft 10 in Weight 182 lb 15.739 oz BMI 26.3 BP 100/54 L Blood Pressure Location Lt brachial Position Sitting Pulse 65 Pulse Source Pulse Oximeter Pulse Oximetry (%) 96 Oxygen Delivery Method Room Air Intake Visit Reasons: Asthma Allergies No Known Allergies (No Known Allergies*) Allergy (Verified 02/12/25 13:07) HPI Comments Details: The patient is a 64-year-old gentleman known history of asthma and COPD overlap syndrome. He does not smoke cigarettes although he smokes marijuana. The patient has been having worsening respiratory symptoms. He has had multiple physicians hoping with his respiratory issues. Now she he is having issues with his neck. He is going to need surgery and that is coming up sometime in the end of November. Will going to try to help improve his respiratory capacity by optimizing his respiratory medications. In the meantime he understands that he smoking this is also been him there is response to therapy. Therefore he needs to work on avoiding any kind of smoking altogether and should continue to optimize respiratory therapy with medications provided. He will need undergo pulmonary function studies. Once I have those PFTs I can do a an addendum in order to complete a preoperative evaluation for him for surgery. The patient does have significant wheezing on examination. Will go ahead and optimize his respiratory therapy but given some prednisone and he does need to take it if he has not responded to the therapy or if he gets worse. We also looked at a CT scan of the chest that he had back in 2020. He has evidence of interstitial lung changes. Will continue to monitor of any progression of underlying interstitial lung disease. Right now on the last CT scan appears to be more chronic than acute. 08/16/2023 the patient is here for a pulmonary follow-up visit. He has been complaining of worsening cough and chest tightness now for the last 3 days. Denies any fevers or chills. Denies being exposed to COVID. He has been using his nebulizer on a regular basis. This has been partially helpful. Does have significant wheezing on examination. The patient does require prednisone at this time. prior to the flare-up the patient had been doing well on the current respiratory regimen. again, we did review his PFTs from November 2022 demonstrating severe COPD. In addition to that the patient had a chest x-ray from June 2023 demonstrating no acute disease. 02/21/2024 the patient is here for pulmonary follow-up visit. Overall he is doing about the same. Still complaining of cough. Moderate severity. Nonproductive in nature. He also has some chest discomfort primarily in the right side. he has been on the inhalers. The provide some minimal improvement. In the meantime he did have a chest x-ray which we personally reviewed. Does have some abnormal findings primarily on the right hemithorax suggesting of pneumonia. will go ahead and request a CT scan of the chest to assess the abnormality better. Specially to assess for foreign bodies or any type of postobstructive process that would warrant a bronchoscopy. The patient also had a barium swallow demonstrating some penetration of the barium into the larynx although no overt aspiration noted. We did talk about dysphagia diet and making sure that he is careful when he is eating. He will continue with current respiratory therapy will follow-up after the CAT scan. 02/12/2025 the patient is here for a pulmonary follow-up visit. Overall he is doing okay. Although he was not [place] and he came back with swollen ankles and not feeling well. He did get evaluated. The patient was placed on Lasix x3 days. Prior to that in August he did have a CT scan of the chest that I personally reviewed. The patient did have areas of atelectasis and also some paraseptal emphysema and subcentimeter pulmonary nodules. He will need another CAT scan in August 2025. He also had a recent chest x-ray when he was not feeling well demonstrating the bibasilar atelectasis. Pretty much at baseline. Breathing is okay responding well to his respiratory inhalers. His blood pressure today was little low 100/50. He is not feeling dizzy. I did advise him to drink water. May have been the diuretics that he took. He is also going to abstain from alcohol. He will follow-up in August after his CT scan of the chest. If any issues arise he can always call for an earlier evaluation. [facility] Medical History New abnormality on chest x-ray REJI (acute kidney injury) Urgency of micturition Urinary hesitancy Nocturia more than twice per night Benign prostatic hyperplasia with weak urinary stream Epidermal inclusion cyst Atelectasis Fecal incontinence Flank lipoma Asthma-COPD overlap syndrome IBS (irritable bowel syndrome) Umbilical hernia Diabetes Arthritis Back pain GERD (gastroesophageal reflux disease) Bipolar 1 disorder Anxiety Depression Elevated cholesterol Tension pneumothorax, spontaneous Hypertension Asthma Surgical History (Reviewed 11/18/24 @ 14:46 by Namrata Ritchie [facility]) History of esophagogastroduodenoscopy (EGD) S/P excision of lipoma (02/20/23) History of excision of mass (12/13/22) Hx of colonoscopy Hx of tracheostomy History of lung surgery Hx of hernia repair Family History (Reviewed 11/18/24 @ 14:46 by Namrata Ritchie [facility]) Mother Stomach cancer Brother Prostate cancer Brother Prostate cancer Social History (Reviewed 02/12/25 @ 13:08 by Olivia Vargas [facility]) Household Members: None Housing: Apartment Do you presently have visiting nurse or other home services: No Alcohol intake: current Alcohol intake frequency: holidays/special occasions only Alcohol type: beer Patient Tobacco Use Status: Never used Tobacco e-Cigarette/Vaping Use: Never Used Second Hand Smoke Exposure: No Substance Use Type: Marijuana Advance Directives Date on File: 03/28/21 service: No Current occupational status: unemployed Review of Systems Const Denies fever(s) Eyes Denies change in vision ENT Denies change in voice and Reports nasal congestion Card Denies chest pain and Reports dyspnea on exertion Resp Reports chest congestion, Reports cough, Reports dyspnea on exertion and Reports wheezing GI Reports no additional complaints Musc Reports myalgias Skin/Breast Denies rash Neuro Reports no additional complaints Endo Reports no additional complaints Yusef/Lymph Denies lymphadenopathy Aller/Immun Reports wheezing Physical Exam Vital Signs: Last Vital Signs Pulse 65 02/12/25 13:03 BP 100/54 L 02/12/25 13:03 Pulse Ox 96 02/12/25 13:03 Oxygen Delivery Method Room Air 02/12/25 13:03 BMI result Body Mass Index 26.3 Const General: comfortable HEENT Head: Yes normocephalic Neck Neck: Yes supple Chest Chest palpation & inspection: normal inspection of the chest Resp Effort & Inspection: normal respiratory effort and able to speak in complete sentences Auscultation: rhonchi, wheezes and diminished lung sounds Cardio Rate: regular rate Rhythm: regular rhythm Heart sounds: S1 normal heart sound present and S2 normal heart sound present GI Palpation (GI): Soft to palpation Skin General skin exam: no rashes or lesions noted Extrem General: Yes clubbing and Yes cyanosis Assessment & Plan Assessment & Plan (1) Asthma-COPD overlap syndrome: Code(s): J44.9 - Chronic obstructive pulmonary disease, unspecified Category: Medical (2) Atelectasis: Code(s): J98.11 - Atelectasis Category: Medical (3) Chest pain: Code(s): R07.9 - Chest pain, unspecified Category: Medical Qualifiers: Chest pain type: unspecified Qualified Code(s): R07.9 - Chest pain, unspecified (4) Pulmonary nodules: Code(s): R91.8 - Other nonspecific abnormal finding of lung field Category: Medical Plan continue Trelegy 200 OK as needed continue singulair CT chest 08/2025 F/U 08/2025 Orders: Orders CT chest wo IV con 08/16/25 R91.8 - Other nonspecific abnormal finding of lung field Coding Level of Care Code Est Pt Level 4 (01379) Diagnoses Asthma-COPD overlap syndrome J44.9 Atelectasis J98.11 Chest pain, unspecified type R07.9 Chest pain type: unspecified Pulmonary nodules R91.8 Time Spent (min) 16
[2025-02-12 13:03] VITALS: BP 100/54; PULSE 65; O2SAT 96; BMI 26.3
== END 2025-02-12 14:44 | disposition home or self-care (01) ==
LOC: HO.HPS 12:57
PROVIDERS: PCP Internal Medicine; Visit Provider Hospitalist
DX: J44.9 Chronic obstructive pulmonary disease, unspecified (principal); J98.11 Atelectasis; R07.9 Chest pain, unspecified; R91.8 Other nonspecific abnormal finding of lung field
CPT/HCPCS: 99214

== ENCOUNTER → 2025-02-12 12:56 | Outpatient (BNVA) | payer OTHER, SELFPAY | PROVIDERS: PCP Internal Medicine; Visit Provider Hospitalist | DX: J98.11 Atelectasis (principal); R91.8 Other nonspecific abnormal finding of lung field; R07.9 Chest pain, unspecified; J44.9 Chronic obstructive pulmonary disease, unspecified | CPT/HCPCS: 99212 ==

== ENCOUNTER 2025-02-19 13:41 | Outpatient (AMB) | payer OTHER, SELFPAY ==
--- OUTSIDE RECORDS SUMMARY | 2025-02-19 13:47 | XMS_ITS | Clinical Summary ---
Author Organization [facility] Facility Address [address] [address] Care Team Providers Care Layout Designer Name Role Phone Chun Brennan MD Primary [...] age to complete this topic Insurance [address] [place] [id number] [facility] [address] [place] [id number] [address] [place] [phone] Care Teams Layout Designer Relationship Specialty Start Date End Date Chun Brennan MD PCP - General 07/25/20
--- OUTSIDE RECORDS SUMMARY | 2025-02-19 13:47 | XMS_ITS | Encounter Summary ---
Author Organization [facility] Address [address] [facility] 7t [place] [address] Care Team Providers Care Laundry Machine Operator Name Role Phone Chun Porras MD Primary Care Provide r Lynsey Madison PharmD Unavailable [phone] Reason for Visit * Reason Comments Med Refill Encounter Details Date Type Department Care Team ([facility] st Contact Info) Description 04/28/2024 Refill [facility] [address] [place] [address] Lynsey Madison, PharmD [address] [place] [address] Type 2 diabetes mellitus without complication, unspecified whether watcher automat long goods insulin use ([facility]) Social History Tobacco [...] Care Team (Late st Contact Info) Description 03/11/2025 1:00 PM EDT Office Visit [facility] MED[facility]INE [address] [place] [address] Chun Porras MD [address] [place] [address] 05/07/2025 10:00 AM EDT Clinical Support [facility] [address] [place] [address] Maritza Mejia RN [address] [place] [address] documented as of this encounter Goals Goal Patient Goal Type Associated Problems Recent Progress Patient-Stated? Author Blood Pressure < 140/90 Blood Pressure Essential hypertension 106/68(2024 9:16 AM EDT) No Lynsey Madison, [place] documented as of this encounter Visit Diagnoses Diagnosis Type 2 diabetes mellitus without complication, unspecified whether watcher automat long goods insulin use ([facility]) documented in this encounter Additional Health Concerns Assessment Noted Time PHQ-9 Depression Total Score: 1 11/12/19 24 11:09 AM EDT documented as of this encounter Care Teams Laundry Machine Operator Relationship Specialty Start Date End Date Chun Porras MD [address] [place] [address] PCP - General Internal Medicine 05/26/14 Lynsey Madison PharmD [address] [place] [address] Pharmacist Internal Medicine 09/26/23 documented as of this encounter
--- OUTSIDE RECORDS SUMMARY | 2025-02-19 13:47 | XMS_ITS | Patient Health Record ---
Author Organization [facility] Address [address] [place] [address] Care Team Providers Care Securities Consultant Name Role Phone Monique Reyes Primary Care [...] Date Coverage End Date MEMO SIMON [address] [place], [place] [id number] Francisco J Romeo Self - patient is the insured
--- NOTE | 2025-02-19 13:48 | MHC.OFFVIS ---
Vital Signs 02/19/25 13:54 Height 5 ft 10 in Weight 190 lb 0.615 oz BMI 27.3 BP 103/70 Blood Pressure Location Lt brachial Position Sitting Intake Visit Reasons: Follow up H pylori Intake Note: Francisco J presents to office in follow up of H pylori. CC: Patient reports doing well and denies having any new GI symptoms. He states he continues taking the medication Peace prescribed, but doesn't remember the name of his meds. Thoracic Medicine Specialist Required: Yes Thoracic Medicine Specialist Language: Israeli Allergies No Known Allergies (No Known Allergies*) Allergy (Verified 02/19/25 14:01) HPI HPI Follow up H pylori: Details: Assessment & Plan (1) H. pylori duodenitis: Code(s): K29.80 - Duodenitis without bleeding; B96.81 - Helicobacter pylori [H. pylori] as the cause of diseases classified elsewhere Category: Medical (2) Merlos's esophagus determined by biopsy: Comment: 06/2024 EGD=HP and SSBE Code(s): K22.70 - Merlos's esophagus without dysplasia Category: Medical (3) GERD (gastroesophageal reflux disease): Code(s): K21.9 - Gastro-esophageal reflux disease without esophagitis Category: Medical (4) Tubular adenoma of colon: Comment: [address] Sims, 2020 SESSILE POLYP REPEAT 5 YEARS Code(s): D12.6 - Benign neoplasm of colon, unspecified Category: Medical (5) IBS (irritable bowel syndrome): Code(s): K58.9 - Irritable bowel syndrome, unspecified Category: Medical (6) Erosive gastritis: Comment: Likely related to H pylori infection Code(s): K29.60 - Other gastritis without bleeding Category: Medical Plan Israeli #[id number] He received the abx - quad therapy - and has a couple of days left. He expresses concern that his stools are black, and I explain that this is from the bismuth tablets. Overall he is feeling much better and having less reflux so this is encouraging. Return office visit next available to do an H pylori stool test then she is on b.i.d. AcipHex. At that point if the bacteria is eradicated we might want to consider tapering the dose. TODAY'S VISIT Israeli #Cristina Arciniega He is here today with a female family member who is supportive Patient was treated in July with quadruple therapy. We will need to retest for eradication. HE did not understand well about the H pylori, so I spend time educating them. He has been feeling much better since completing the therapy. We may consider decreasing the aciphex going forward after we confirm eradication. Return office visit in 8 weeks [facility] Medical History H. pylori duodenitis New abnormality on chest x-ray REJI (acute kidney injury) Urgency of micturition Urinary hesitancy Nocturia more than twice per night Benign prostatic hyperplasia with weak urinary stream Epidermal inclusion cyst Atelectasis Fecal incontinence Flank lipoma Asthma-COPD overlap syndrome IBS (irritable bowel syndrome) Umbilical hernia Diabetes Arthritis Back pain GERD (gastroesophageal reflux disease) Bipolar 1 disorder Anxiety Depression Elevated cholesterol Tension pneumothorax, spontaneous Hypertension Asthma Surgical History History of esophagogastroduodenoscopy (EGD) S/P excision of lipoma (02/20/23) History of excision of mass (12/13/22) Hx of colonoscopy Hx of tracheostomy History of lung surgery Hx of hernia repair Family History Mother Stomach cancer Brother Prostate cancer Brother Prostate cancer Social History Household Members: None Housing: Apartment Do you presently have visiting nurse or other home services: No Alcohol intake: current Alcohol intake frequency: holidays/special occasions only Alcohol type: beer Patient Tobacco Use Status: Never used Tobacco e-Cigarette/Vaping Use: Never Used Second Hand Smoke Exposure: No Substance Use Type: Marijuana Advance Directives Date on File: 03/28/21 service: No Current occupational status: unemployed Review of Systems Const Denies fatigue, Denies fever(s), Denies night sweats, Denies poor appetite and Denies weight loss ENT Reports Normal hearing present, Denies dental pain, Denies dysphagia, Denies hearing loss, Denies mouth pain, Denies odynophagia, Denies throat swelling, Denies tongue swelling and Reports other (Dentition adequate) Card Reports no additional complaints Resp Reports no additional complaints GI Details: Denies abdominal pain, Denies melena, Denies bloating, Denies hematochezia, Denies constipation, Denies GI cramping, Denies dysphagia, Denies excessive flatus, Denies early satiety, Reports heartburn, Denies diarrhea, Denies nausea, Denies odynophagia, Denies vomiting and Denies hematemesis Skin/Breast Denies pruritus, Denies lesions, Denies rash and Denies jaundice Neuro Reports Normal hearing present and Denies Abnormal speech present Endo Denies fatigue Aller/Immun Denies throat swelling and Denies tongue swelling Physical Exam Vital Signs: Last Vital Signs BP 103/70 02/19/25 13:54 BMI result Body Mass Index 27.3 Const General: cooperative, no acute distress, well developed and well groomed Nutritional Appearance: average body habitus and well nourished Orientation/consciousness: oriented to person, oriented to place and oriented to time Limitations: language barrier HEENT Head: Yes normocephalic and Yes atraumatic Eyes General: appearance normal, both eyes and all related structures Pupils: Equal, round and reactive pupils present Neck Neck: Yes normal visual inspection and Yes no lymphadenopathy Thyroid: Thyroid normal Resp Effort & Inspection: normal respiratory effort and able to speak in complete sentences Auscultation: clear to auscultation bilaterally Cardio Rate: regular rate Rhythm: regular rhythm Heart sounds: Normal, physiologic split S2 sound present Peripheral pulses: radial pulses present and posterior tibial pulses present GI Inspection: No distended and No Abdominal panniculus present Palpation (GI): Soft to palpation, nontender, no guarding, not rigid and No hepatosplenomegaly present Percussion: Yes normal to percussion Auscultation: normal bowel sounds Rectal Exam - Male: Yes deferred Skin General skin exam: no rashes or lesions noted, turgor normal, skin not dry, no jaundice, No spider nevi and no striae Rashes: no rashes Nails: normal Neuro General: oriented to person, oriented to place and oriented to time Cranial nerves: Yes Equal, round and reactive pupils present and Yes Normal hearing present Speech: No Abnormal speech present Extrem General: Yes normal to inspection, No clubbing, No cyanosis and No edema Psych Appearance: grossly normal and well kempt Mental Status: mental status grossly normal Speech and movement: Normal speech and movement present Affect: normal affect Attitude: cooperative Thought process: Normal thought process present and not confabulating Thought content: Normal thought content present Insight: Limited insight present (Psych) Judgement: Limited judgement present (Psych) Assessment & Plan Assessment & Plan (1) H. pylori duodenitis: Comment: Discovered on 05/2024 EGD treated with quadruple therapy Code(s): K29.80 - Duodenitis without bleeding; B96.81 - Helicobacter pylori [H. pylori] as the cause of diseases classified elsewhere Category: Medical (2) GERD (gastroesophageal reflux disease): Code(s): K21.9 - Gastro-esophageal reflux disease without esophagitis Category: Medical (3) Merlos's esophagus determined by biopsy: Comment: 06/2024 EGD=HP and SSBE Code(s): K22.70 - Merlos's esophagus without dysplasia Category: Medical (4) Erosive gastritis: Comment: Likely related to H pylori infection Code(s): K29.60 - Other gastritis without bleeding Category: Medical (5) IBS (irritable bowel syndrome): Code(s): K58.9 - Irritable bowel syndrome, unspecified Category: Medical Plan Israeli #Cristina Arciniega He is here today with a female family member who is supportive Patient was treated in July with quadruple therapy. We will need to retest for eradication. HE did not understand well about the H pylori, so I spend time educating them. He has been feeling much better since completing the therapy. We may consider decreasing the aciphex going forward after we confirm eradication. Return office visit in 8 weeks Orders: Orders H pylori Ag Stool Today B96.81 - Helicobacter pylori [H. pylori] as the cause of diseases classified elsewhere, K29.80 - Duodenitis without bleeding Coding Level of Care Code Est Pt Level 3 (98925) Diagnoses H. pylori duodenitis K29.80; B96.81 GERD (gastroesophageal reflux disease) K21.9 Merlos's esophagus determined by biopsy K22.70 Erosive gastritis K29.60 IBS (irritable bowel syndrome) K58.9
[2025-02-19 13:54] VITALS: BP 103/70; BMI 27.3
== END 2025-02-19 14:39 | disposition home or self-care (01) ==
LOC: HO.HGI 13:41
PROVIDERS: PCP Internal Medicine; Visit Provider Nurse Practitioner
DX: K29.80 Duodenitis without bleeding (principal); B96.81 Helicobacter pylori [H. pylori] as the cause of diseases classified elsewhere; K21.9 Gastro-esophageal reflux disease without esophagitis; K22.70 Barrett's esophagus without dysplasia; K29.60 Other gastritis without bleeding; K58.9 Irritable bowel syndrome, unspecified
CPT/HCPCS: 99213

== ENCOUNTER → 2025-02-19 13:41 | Outpatient (BNVA) | payer OTHER, SELFPAY | PROVIDERS: PCP Internal Medicine; Visit Provider Nurse Practitioner | DX: Z71.2 Person consulting for explanation of examination or test findings (principal); K29.80 Duodenitis without bleeding; B96.81 Helicobacter pylori [H. pylori] as the cause of diseases classified elsewhere; K22.70 Barrett's esophagus without dysplasia; K21.9 Gastro-esophageal reflux disease without esophagitis; D12.6 Benign neoplasm of colon, unspecified; K58.9 Irritable bowel syndrome, unspecified; K29.60 Other gastritis without bleeding | CPT/HCPCS: 99212 ==

== ENCOUNTER 2025-02-23 14:14 | Outpatient (REF) | payer OTHER, SELFPAY ==
--- OUTSIDE RECORDS SUMMARY | 2025-02-23 15:10 | XMS_ITS | Encounter Summary ---
Author Organization [employer] [facility] Address [address] [facility] 7t [place] [address] Care Team Providers Care Integrated Logistics Support Manager Name Role Phone Chun Porras MD Primary Care Provide r Lynsey Madison PharmD Unavailable [phone] Reason for Visit * Reason Comments Med Refill Encounter Details Date Type Department Care Team ([facility] st Contact Info) Description 04/28/2024 Refill [facility]ICINE [address] [place] [address] Lynsey Madison, PharmD [address] [place] [address] Type 2 diabetes mellitus without complication, unspecified whether intermediate insulin use ([facility]) Social History Tobacco Use Types Packs/Day [...] Description 03/11/2025 1:00 PM EDT Office Visit [facility] [address] [place] [address] Chun Porras MD [address] [place] [address] 05/07/2025 10:00 AM EDT Clinical Support [facility] [address] [place] [address] Maritza Mejia RN [address] [place] [address] documented as of this encounter Goals Goal Patient Goal Type Associated Problems Recent Progress Patient-Stated? 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
--- OUTSIDE RECORDS SUMMARY | 2025-02-23 15:11 | XMS_ITS | Patient Health Record ---
Author Organization [facility] enter Address [address] [place] [address] Care Team Providers Care Airbrush Artist Name Role Phone Monique Reyes Primary Care [...] Date Coverage End Date MEMO [address]ON [address] [place], [place] [id number] Francisco J Romeo Self - patient is the insured
--- OUTSIDE RECORDS SUMMARY | 2025-02-23 15:11 | XMS_ITS | Clinical Summary ---
Author Organization [facility] Facility Address [address] [address] Care Team Providers Care Central Office Operator Supervisor Name Role Phone Chun Brennan MD Primary [...] to complete this topic Insurance [address] [place] [id number] [facility] [address] [place] [address] [address] [place] [id number] Care Teams Central Office Operator Supervisor Relationship Specialty Start Date End Date Chun Brennan MD PCP - General 07/25/20
== END 2025-02-23 14:15 | disposition home or self-care (01) ==
LOC: HO.LNP 14:14
PROVIDERS: Internal Medicine; Visit Provider Nurse Practitioner
DX: K29.80 Duodenitis without bleeding (principal); B96.81 Helicobacter pylori [H. pylori] as the cause of diseases classified elsewhere; E11.9 Type 2 diabetes mellitus without complications
CPT/HCPCS: 82043; 82570; 87338

== ENCOUNTER 2025-04-15 11:58 | Outpatient (AMB) | payer OTHER, SELFPAY ==
--- OUTSIDE RECORDS SUMMARY | 2025-04-15 13:40 | XMS_ITS | Encounter Summary ---
Author Organization [employer] [facility] Address [address] [facility] 7t [place] [address] Care Team Providers Care Converting Technician Name Role Phone Chun Porras MD Primary Care Provide r Lynsey Madison PharmD Unavailable [phone] Reason for Visit * Reason Comments Med Refill Encounter Details Date Type Department Care Team ([facility] st Contact Info) Description 04/28/2024 Refill [facility] [address] [place] [address] Lynsey Madison, PharmD [address] [place] [address] Type 2 diabetes mellitus without complication, unspecified whether terminal superintendent insulin use ([facility]) Social History Tobacco Use Types [...] Care Team (Late st Contact Info) Description 05/07/2025 10:00 AM EDT Clinical Support [facility] [address] [place] [address] Maritza Mejia, SANDRA [address] [place] [address] 07/02/2025 2:30 PM EST Office Visit [facility] [address] [place] [address] Becka You, OD [address] [place] [address] documented as of this encounter Goals Goal Patient Goal Type Associated Problems Recent Progress Patient-Stated? Author Blood Pressure < 140/90 Blood Pressure Essential hypertension 106/68(2024 9:16 AM EDT) No Lynsey Madison, PharmD documented as of this encounter Visit Diagnoses Diagnosis Type 2 diabetes mellitus without complication, unspecified whether penitentiary insulin use documented in this encounter Additional Health Concerns Assessment Noted Time PHQ-9 Depression Total Score: 1 11/12/19 24 11:09 AM EDT documented as of this encounter Care Teams Converting Technician Relationship Specialty Start Date End Date Chun Porras MD [address] [place] [address] PCP - General Internal Medicine 05/26/14 Lynsey Madison, Sherwin [address] [place] [address] Pharmacist Internal Medicine 09/26/23 documented as of this encounter
--- OUTSIDE RECORDS SUMMARY | 2025-04-15 13:40 | XMS_ITS | Encounter Summary ---
Author Organization [facility] Address [address] [facility] 7t [place] [address] Care Team Providers Care Special Technical Operations Officer Name Role Phone Chun Porras MD Primary Care Provide r Lynsey Madison PharmD Unavailable [phone] Reason for Visit * Reason Comments Med Refill Encounter Details Date Type Department Care Team ([facility] st Contact Info) Description 02/17/2024 Refill [facility] [address] [place], [place] [phone] Chun Porras MD [address] [place] [address] Chronic midline low back pain without sciatica [...] Description 05/07/2025 10:00 AM EDT Clinical Support [facility]INE [address] [place] [address] Maritza Mejia, SANDRA [address] [place] [address] 07/02/2025 2:30 PM EST Office Visit [facility] [address] [place] [address] Becka You, OD [address] [place] [address] documented as of this encounter Goals Goal Patient Goal Type Associated Problems Recent Progress Patient-Stated? Author Blood Pressure < 140/90 Blood Pressure Essential hypertension 106/68(2024 9:16 AM EDT) No Lynsey Mdaison, PharmD documented as of this encounter Visit Diagnoses Diagnosis Chronic midline low back pain without sciatica documented in this encounter Additional Health Concerns Assessment Noted Time PHQ-9 Depression Total Score: 1 11/12/19 24 11:09 AM EDT documented as of this encounter Care Teams Special Technical Operations Officer Relationship Specialty Start Date End Date Chun Porras MD [address] [place] [address] PCP - General Internal Medicine 05/26/14 Lynsey Madison, MichaelD [address] [place] [address] Pharmacist Internal Medicine 09/26/23 documented as of this encounter
--- OUTSIDE RECORDS SUMMARY | 2025-04-15 13:40 | XMS_ITS | Patient Health Record ---
Author Organization [facility] enter Address [address] [place] [address] Care Team Providers Care Tests Superintendent Name Role Phone Monique Reyes Primary Care [...] Date Coverage End Date MEMO [address]ON [address] [place], [place] [id number] Francisco J Romeo Self - patient is the insured
--- OUTSIDE RECORDS SUMMARY | 2025-04-15 13:40 | XMS_ITS | Clinical Summary ---
Author Organization [facility] Facility Address [address] [address] Care Team Providers Care Transcriptionist Name Role Phone Chun Brennan MD Primary [...] to complete this topic Insurance [address] [place] [id number] [facility] [address] [place] [phone] [address] [place] [phone] Care Teams Transcriptionist Relationship Specialty Start Date End Date Chun Brennan MD PCP - General 07/25/20
--- OUTSIDE RECORDS SUMMARY | 2025-04-15 13:41 | XMS_ITS | Encounter Summary ---
Author Organization [employer] [facility] Address 75 [facility] 7t [place] [address] Care Team Providers Care Senior Linux Administrator Name Role Phone Chun Porras MD Primary Care Provide r Lynsey Madison PharmD Unavailable [phone] Reason for Visit * Reason Onset Date Comments Med Refill 03/22/2023 Encounter Details Date Type Department Care Team (Late st Contact Info) Description 03/14/2023 Refill [facility] [address] [place] [address] Chun Porras MD [address] [place] [address] Chronic midline low back pain without sciatica [...] medication. He can be contact any time. Malaysian Speaker * Telephone Encounter - Arlette Phipps [...] Description 05/07/2025 10:00 AM EDT Clinical Support [facility] [address] [place] [address] Maritza Mejia, SANDRA [address] [place] [address] 07/02/2025 2:30 PM EST Office Visit [facility] [address] [place] [address] Avelino, Becka, OD [address] [place] [address] documented as of this encounter Visit Diagnoses Diagnosis Chronic midline low back pain without sciatica documented in this encounter Additional Health Concerns Assessment Noted Time PHQ-9 Depression Total Score: 3 07/06/20 22 11:00 AM EST documented as of this encounter Care Teams Senior Linux Administrator Relationship Specialty Start Date End Date Chun Porras MD [address] [place] [address] PCP - General Internal Medicine 05/26/14 Lynsey Madison PharmD [address] [place] [address] Pharmacist Internal Medicine 09/26/23 documented as of this encounter
--- OUTSIDE RECORDS SUMMARY | 2025-04-15 13:41 | XMS_ITS | Encounter Summary ---
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 Author Blood Pressure < 140/90 Blood Pressure Essential hypertension 106/68(2024 9:16 AM EDT) No Lynsey Madison, [place] documented as of this encounter Visit Diagnoses Diagnosis Type 2 diabetes mellitus without complication, unspecified whether termite treater insulin use documented in this encounter Additional Health Concerns Assessment Noted Time PHQ-9 Depression Total Score: 3 07/06/20 22 11:00 AM EST documented as of this encounter Care Teams Stave Jointer Relationship Specialty Start Date End Date Chun Porras MD [address] [place] [address] PCP - General Internal Medicine 05/26/14 Lynsey Madison, PharmD [address] [place] [address] Pharmacist Internal Medicine 09/26/23 documented as of this encounter
--- OUTSIDE RECORDS SUMMARY | 2025-04-15 13:41 | XMS_ITS | Encounter Summary ---
Author Organization [employer] Address [address] [facility] [address]t [place] [address] Care Team Providers Care Concrete Vibrator Operator Name Role Phone Chun Porras MD Primary Care Provide r Lynsey Madison PharmD Unavailable [phone] Reason for Visit * Reason Comments Med Refill Encounter Details Date Type Department Care Team (Late st Contact Info) Description 08/22/2023 Refill [facility] [address] [place] [address] Colleen Lou FNP [address] [place] [address] Chronic obstructive pulmonary disease with (acute) exacerbation [...] Description 05/07/2025 10:00 AM EDT Clinical Support [facility] [address] [place] [address] Maritza Mejia RN [address] [place] [address] 07/02/2025 2:30 PM EST Office Visit [facility] [address] [place] [address] AvelinoBecka fritz, OD [address] [place] [address] documented as of this encounter Goals Goal Patient Goal Type Associated Problems Recent Progress Patient-Stated? Author Blood Pressure < 140/90 Blood Pressure Essential hypertension 106/68(2024 9:16 AM EDT) No Lynsey Madison, MichaelD documented as of this encounter Visit Diagnoses Diagnosis Chronic obstructive pulmonary disease with (acute) exacerbation (CMS/HCC) (HCC) documented in this encounter Additional Health Concerns Assessment Noted Time PHQ-9 Depression Total Score: 3 07/06/20 22 11:00 AM EST documented as of this encounter Care Teams Concrete Vibrator Operator Relationship Specialty Start Date End Date Chun Porras MD [address] [place] [address] PCP - General Internal Medicine 05/26/14 Lynsey Madison, PharmD [address] [place] [phone] Pharmacist Internal Medicine 09/26/23 documented as of this encounter
--- OUTSIDE RECORDS SUMMARY | 2025-04-15 13:41 | XMS_ITS | Encounter Summary ---
Author Organization [employer] Address [address] [facility] [address] [place] [address] Care Team Providers Care Packing Machine Tender Name Role Phone Chun Porras MD Primary Care Provide r Lynsey Madison PharmD Unavailable [phone] Reason for Visit * Reason Comments Med Refill Encounter Details Date Type Department Care Team ([facility] st Contact Info) Description 04/21/2023 Refill [facility] [address] [place] [address] Name, MD Cristhian [address] [place] [address] Essential hypertension Social History Tobacco Use Types [...] Description 05/07/2025 10:00 AM EDT Clinical Support [facility] [address] [place] [address] Maritza Mejia, SANDRA [address] [place] [address] 07/02/2025 2:30 PM EST Office Visit [facility] OPTOMETRY [address] [place] [address] Avelino, Becka, OD [address] [place] [address] documented as of this encounter Visit Diagnoses Diagnosis Essential hypertension Unspecified essential hypertension documented in this encounter Additional Health Concerns Assessment Noted Time PHQ-9 Depression Total Score: 3 07/06/20 22 11:00 AM EST documented as of this encounter Care Teams Packing Machine Tender Relationship Specialty Start Date End Date Chun Porras MD [address] [place] [address] PCP - General Internal Medicine 05/26/14 Lynsey Madison PharmD [address] [place] [id number] Pharmacist Internal Medicine 09/26/23 documented as of this encounter
--- OUTSIDE RECORDS SUMMARY | 2025-04-15 13:41 | XMS_ITS | Encounter Summary ---
Author Organization [employer] Address [address] [facility] 7t [place] [address] Care Team Providers Care Stock Car Driver Name Role Phone Chun Porras MD Primary Care Provide r Lynsey Madison PharmD Unavailable [phone] Reason for Visit * Reason Comments Med Refill Encounter Details Date Type Department Care Team ([facility] st Contact Info) Description 07/04/2023 Refill [facility]INE [address] [place] [address] Chun Porras MD [address] [place] [address] Type 2 diabetes mellitus without complication, unspecified whether intermodal dispatcher insulin use ([facility]) Social History Tobacco Use Types [...] Description 05/07/2025 10:00 AM EDT Clinical Support [facility] MEDICINE [address] [place] [address] Maritza Mejia, SANDRA [address] [place] [address] 07/02/2025 2:30 PM EST Office Visit [facility] OPTOMETRY [address] [place] [address] Avelino, Becka, OD [address] [place] [address] documented as of this encounter Visit Diagnoses Diagnosis Type 2 diabetes mellitus without complication, unspecified whether penitentiary insulin use documented in this encounter Additional Health Concerns Assessment Noted Time PHQ-9 Depression Total Score: 3 07/06/20 22 11:00 AM EST documented as of this encounter Care Teams Stock Car Driver Relationship Specialty Start Date End Date Chun Porras MD [address] [place] [id number] PCP - General Internal Medicine 05/26/14 Lynsey Madison PharmD [address] [place] [phone] Pharmacist Internal Medicine 09/26/23 documented as of this encounter
--- OUTSIDE RECORDS SUMMARY | 2025-04-15 13:41 | XMS_ITS | Encounter Summary ---
Author Organization [employer] Address [address] [facility] 7t [place] [address] Care Team Providers Care Chemical Process Analyst Name Role Phone Chun Porras MD Primary Care Provide r Lynsey Madison PharmD Unavailable [phone] Reason for Visit * Reason Comments Med Refill Encounter Details Date Type Department Care Team ([facility] st Contact Info) Description 04/25/2023 Refill [facility] [address] [place] [address] Name, MD Cristhian [address] [place] [address] Essential hypertension Social History Tobacco Use Types [...] Description 05/07/2025 10:00 AM EDT Clinical Support [facility] [address] [place] [address] Maritza Mejia, SANDRA [address] [place] [address] 07/02/2025 2:30 PM EST Office Visit [facility] OPTOMETRY [address] [place] [address] Avelino, Becka, OD [address] [place] [address] documented as of this encounter Visit Diagnoses Diagnosis Essential hypertension Unspecified essential hypertension documented in this encounter Additional Health Concerns Assessment Noted Time PHQ-9 Depression Total Score: 3 07/06/20 22 11:00 AM EST documented as of this encounter Care Teams Chemical Process Analyst Relationship Specialty Start Date End Date Chun Porras MD [address] [place] [address] PCP - General Internal Medicine 05/26/14 Lynsey Madison PharmD [address] [place] [id number] Pharmacist Internal Medicine 09/26/23 documented as of this encounter
--- OUTSIDE RECORDS SUMMARY | 2025-04-15 13:41 | XMS_ITS | Clinical Summary ---
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 023 Active montelukast (Singulair) 10 MG tablet 023 Active Blood Glucose Monitoring Suppl (FreeStyle Lite) w/Device kit 1 kit 3 times daily. 1 kit 023 Active meloxicam (Mobic) 15 MG tablet TAKE 1 TABLET BY MOUTH ONCE DAILY NEEDED FOR PAIN 024 Active terazosin (Hytrin) 5 MG capsule Take 5 mg by mouth at bedtime. 024 Active Oral Medication Containers misc USE DIRECTED Active [facility] Gas Relief Ultra Strength 180 MG capsule TOME 1 C PSULA POR V A ORAL CUATRO VECES AL D A AFTER MEALS Active ramelteon (Rozerem) 8 MG tablet Take 8 mg by mouth at bedtime. Active ibuprofen 800 MG tablet Take 800 mg by mouth every 8 (eight) hours if needed. Active TRUEplus Lancets 33G miscIndications:T ype 2 diabetes mellitus without complication, unspecified whether terminal clerk insulin use TEST BLOOD SUGAR TWICE DAILY 100 each 025 Active omeprazole (PriLOSEC) [address] capsuleIndication s:Gastroesophagea l reflux disease without esophagitis Take 1 capsule (40 mg) by mouth before breakfast and before evening meal. Do not crush or chew. 30 capsule 1 025 Active atorvastatin (Lipitor) 40 MG tabletIndications :Mixed hyperlipidemia TAKE 1 TABLET BY MOUTH EVERY MORNING 90 tablet 3 025 Active glucose blood (FREESTYLE LITE) test stripIndications: Type 2 diabetes mellitus without complication, unspecified whether terminal clerk insulin use TEST BLOOD SUGAR TWICE DAILY 100 strip 025 Active cetirizine (ZyrTEC) 10 MG tablet TAKE 1 TABLET BY MOUTH EVERY DAY 30 tablet 025 Active metoprolol tartrate (Lopressor) 50 MG tabletIndications :Essential hypertension TAKE 1 TABLET BY MOUTH TWICE DAILY IN THE MORNING AND IN THE EVENING WITH FOOD 180 tablet 025 Active amLODIPine (Norvasc) 10 MG tabletIndications :Essential hypertension TAKE 1 TABLET BY MOUTH EVERY MORNING 90 tablet 025 Active Aspirin Low Dose 81 MG EC tabletIndications :Type 2 diabetes mellitus without complication, unspecified whether terminal clerk insulin use TAKE 1 TABLET BY MOUTH EVERY MORNING 90 tablet 1 025 Active naloxone (Narcan) 4 mg/0.1 mL nasal spray Administer 1 spray (4 mg) into affected nostril(s) if needed for opioid reversal. May repeat every 2-3 minutes if needed, alternating nostrils, until medical assistance becomes available. 2 each 2 025 2025 Active sildenafil (Viagra) 100 MG tabletIndications :Erectile dysfunction, unspecified erectile dysfunction type TAKE 1 TABLET 1 HOUR BEFORE SEXUAL RELATIONS ONCE DAILY NEEDED. 10 tablet 025 Active ketoconazole (NIZOral) 2 % shampoo APPLY TOPICALLY TO AFFECTED AREA(S) 2 TIMES PER WEEK 120 mL 3 025 Active traMADol (Ultram) 50 MG tabletIndications :Chronic midline low back pain without sciatica TAKE 1 TABLET BY MOUTH EVERY 8 HOURS NEEDED FOR SEVERE PAIN 84 tablet 025 Active metFORMIN XR (Glucophage-XR) 500 MG 24 hr tabletIndications :Type 2 diabetes mellitus without complication, unspecified whether terminal clerk insulin use TAKE 2 TABLETS BY MOUTH ONCE DAILY IN THE MORNING and TAKE 1 TABLET BY MOUTH AT BEDTIME 270 tablet 1 025 Active metFORMIN XR (Glucophage-XR) 500 MG 24 hr tabletIndications :Type 2 diabetes mellitus without complication, unspecified whether terminal clerk insulin use TAKE 2 TABLETS BY MOUTH ONCE DAILY IN THE MORNING and TAKE 1 TABLET BY MOUTH AT BEDTIME 270 tablet 1 025 2024 Discontinued Active Problems Problem Noted Date Diagnosed Date Lower extremity edema 02/18/2025 Assessment & Plan (02/18/2025 9:25 AM EDT): Pt here for a ED f/u after he had c/o Lower extremity edema. Work up in the ER unrevealing. Previous cardiac work up negative. Under the care of Cardiology, last seen back in 11/2024 Today patient tell me the swelling resolved on its own, no further complaints Long-term current use of opiate analgesic 2024 [...] a second opinion Will refer to our [facility] Derm clinic Intermittent chest pain 03/07/2023 Assessment & Plan (12/10/2024 1:00 PM EDT): Pt here for a follow up continues with c/o intermittent chest discomfort. Previous EKG showed: NSR No acute st t changes Pt was seen initially by Cardiology 01/13/2024 for evaluation , they recommended a coronary CTA. Seen in the ER recently again , negative cardiac work up. Of note pt had an EGD that showed gastritis. He is also under the care of Pulmonology who recently ordered a CT coronaries: That showed: -Minimal stenosis (1-24%) in the proximal and mid LAD -Minimal stenosis (1-24%) in the distal Lcx -The right ventricle is severely dilated, measuring up to 5.6 cm at the base of diastole. Patient last seen by Cardiology 11/18/2024 Dr Hero Shukla. He will continue to follow with Cardiology, 6 month follow up was recommended Assessment & Plan (09/10/2024 9:37 AM EST): [...] AM EDT): Patient previously seen at our [facility] by Dr Praveen Wagoner with a [...] EDT): Patient previously seen here at our [facility] by Dr Praveen Wagoner with a [...] EDT): Patient previously seen here at our [facility] by Dr Praveen Wagoner with a [...] by Ирина SWENSON and was referred to [employer] Dr Meyer for Pulmonary clearance. Pt was [...] (Updated 08/22/2023) - Patient transferred medications from [facility] to [facility] and was not pleased with results. He has now transferred back but would like to start medboxes again. Medication review completed with patient today. Assessment & Plan (12/10/2024 1:06 PM EDT): PSA 12/21/2022 Normal, Ordered repeat Colonoscopy: 11/29/2014 Tubular adenoma. Pt had a repeat in 07/27 2020 showed internal Hemorrhoids, 5 yr f/u recommended Dr Stephanie Hernandez Assessment & Plan (09/10/2024 11:42 AM EST): [...] incontinence of urine 11/20/2022 Assessment & Plan (02/18/2025 9:22 AM EDT): Pt evaluated by Urology , last seen 01/20/2025 Dr Lee His impression was that patient had mild BPH Assessment & Plan (11/12/2023 11:26 AM EDT): [...] BG generally well controlled Assessment & Plan (02/18/2025 9:28 AM EDT): Pt here for Diabetes f/u controlled on a regimen of: Metformin ER 500 mg 2 tabs in am and 1 tab at PM Hgb A1c 02/18/2025: 6.3 Eye exam done Microalbumin ordered, not yet done Pt not on an OTONIEL inhibitor/ARB Foot check today is risk of: zero Pt reports compliance with Asa 81 mg po daily Plan: Continue current regimen Pt advised to: adhere to diabetic diet check your blood sugars regularly check your feet on a daily basis. f/u 4 months Assessment & Plan (12/10/2024 1:03 PM EDT): Pt here for Diabetes f/u controlled on a regimen of: Metformin ER 500 mg 2 tabs in am and 1 tab at PM Hgb A1c 12/10/2024: 6.2 from 6.3 Eye exam done Microalbumin ordered, not yet done Pt not on an OTONIEL inhibitor/ARB Foot check today is risk of: zero Pt reports compliance with Asa 81 mg po daily Plan: Continue current regimen Pt advised to: adhere to diabetic diet check your blood sugars regularly check your feet on a daily basis. f/u 4 months Assessment & Plan (09/10/2024 11:31 AM EST): [...] Eye Exam Plan: - Referral sent for [facility] Optometry - Continue with current therapy [...] low back pain 01/29/2017 Assessment & Plan (02/18/2025 9:27 AM EDT): Pt with chronic low back pain, Here c/o good and bad days Pt has a Hx of back pain. [...] changes at remaining levels. [facility] gave him a steroid injection in th past, he would like to be referred back Pt has a COT contract with us.' On Tramadol Pt is requesting a recliner to alleviate his pain. Tells me [facility] told him he should ask me Assessment & Plan (12/10/2024 1:12 PM EDT): Pt with chronic low back [...] L3-L4. Milder degenerative changes at remaining levels. [facility] gave him a steroid injection in th past, he would like to be referred back Pt has a COT contract with us.' On Tramadol Assessment & Plan (11/12/2023 11:24 AM EDT): [...] i\used to be under the care of [facility], last seen last 06/20/2023 Back in 06/20/2017 [...] L3-L4. Milder degenerative changes at remaining levels. [facility] gave him a steroid injection back [...] i\used to be under the care of [facility], last seen last 03/09/2019 Back in [...] L3-L4. Milder degenerative changes at remaining levels. [facility] gave him one last Tramadol prescription and [...] i\used to be under the care of [facility], last seen last 03/09/2019 Back in [...] he tells me he was referref by [facility]. I asked him to find out so I can request records [facility] gave him one last Tramadol prescription and [...] had surgery completed 12/2022. Assessment & Plan (12/10/2024 1:05 PM EDT): Patient here for a f/u bloop pressure controlled He is on a regimen of: Amlodipine 10 mg po daily and Metoprolol 50 mg po BID ( at some point there was a suggestion to lower the Metoprolol to 25 mg BID due to a HR of 60) but this was never done. Pt has been taking 50 mg PO BID confirmed with [facility] team. So no changes Plan: Continue current regimen BMP Lab Results [...] recheck in 4 months Assessment & Plan (09/10/2024 9:38 AM EST): [...] f/u exercise stress test. Assessment & Plan (02/18/2025 9:17 AM EDT): Here for a f/u Pt has Hx of multiple spontaneous Pneumothoraxes, treated with Chest tubes in the past. Admitted to [facility] from 12/18-06/2014 because of spontaneous right pneumothorax. Treated with chest tube, and had bronchoscopy with right parietal pleurectomy, multiple wedge resections of blebs of right upper and middle lobes. 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 Meyer, he was seen last 02/12/2025 He mentioned patient will need another CAT scan in August2025. He noted patient was breathing is okay responding well to his respiratory inhalers. He will follow-up in August after his CT scan of the chest with Dr. Meyer Assessment & Plan (09/10/2024 9:40 AM EST): Here for a f/u Pt has Hx of multiple spontaneous Pneumothoraxes, treated with Chest tubes in the past. Admitted to [facility] from 12/18-06/2014 because of spontaneous right pneumothorax. Treated with chest tube, and had bronchoscopy with right parietal pleurectomy, multiple wedge resections of blebs of right upper and middle lobes. kellen 1 antitrypsin was normal Pt was being followed by pulmonology at [facility], he now tells me the core filer left and they did not assign him [...] Chest tubes in the past. Admitted to [facility] from 12/18-06/2014 because of spontaneous right pneumothorax. Treated with chest tube, and had bronchoscopy with right parietal pleurectomy, multiple wedge resections of blebs of right upper and middle lobes. kellen 1 antitrypsin was normal Pt was being followed by pulmonology at [facility], he now tells me the core filer left and they did not assign him [...] Chest tubes in the past. Admitted to [facility] from 12/18-06/2014 because of spontaneous right pneumothorax. Treated with chest tube, and had bronchoscopy with right parietal pleurectomy, multiple wedge resections of blebs of right upper and middle lobes. kellen 1 antitrypsin was normal Pt was being followed by pulmonology at [facility], he now tells me the core filer left and they did not assign him [...] Chest tubes in the past. Admitted to [facility] from 12/18-06/2014 because of spontaneous right pneumothorax. Treated with chest tube, and had bronchoscopy with right parietal pleurectomy, multiple wedge resections of blebs of right upper and middle lobes. kellen 1 antitrypsin was normal Pt was being followed by pulmonology at [facility], he now tells me the core filer left and they did not assign him [...] Chest tubes in the past. Admitted to [facility] from 12/18-06/2014 because of spontaneous right pneumothorax. Treated with chest tube, and had bronchoscopy with right parietal pleurectomy, multiple wedge resections of blebs of right upper and middle lobes. kellen 1 antitrypsin was normal Pt was being followed by pulmonology at [facility], he now tells me the core filer left and they did not assign him [...] Encounters Date Type Department Care Team Description 04/14/2025 Refill [facility] [address] [place] [address] Chun Porras MD Erectile dysfunction, unspecified erectile dysfunction type; Chronic midline low back pain without sciatica 04/07/2025 Telephone [facility] [address] [place] [address] Chun Porras MD chart prep 03/25/2025 Refill [facility] [address] [place] [address] Chun Porras MD Type 2 diabetes mellitus without complication, unspecified whether skilled nursing insulin use (CMS/HCC) 03/17/2025 Telephone [facility] [address] [place] [address] Chun Porras MD Durable Medical Equipment 03/16/2025 Refill [facility] [address] [place] [address] Chun Porras MD Chronic midline low back pain without sciatica 03/11/2025 Telephone [facility] [address] [place] [address] Chun Porras MD Appointment Confirmation 03/10/2025 Telephone [facility] [place] [address] Chun Porras MD Durable Medical Equipment 03/09/2025 Telephone [facility] [address] [facility] [place] [address] Chun Porras MD Error (VOID this visit) 03/08/2025 Telephone [facility] [place] [address] Vicki Abdi, SANDRA Paperwork/Forms 02/20/2025 Refill [facility] [place] [address] Chun Porras MD 02/18/2025 9:15 AM EDT Office Visit [facility] [place] [address] Chun Porras MD Pulmonary emphysema, unspecified emphysema type (CMS/HCC) (Primary Dx); Lower extremity edema; Erectile dysfunction, unspecified erectile dysfunction type; Type 2 diabetes mellitus without complication, without long-term current use of insulin (CMS/HCC); Stress incontinence of urine; Chronic midline low back pain without sciatica 02/18/2025 Telephone [facility] [place] [address] Chun Porras MD DME [facility] 02/18/2025 Travel 02/17/2025 Telephone [facility] [address] [facility] [place] [address] Chun Porras MD Chart Prep 02/16/2025 Refill [facility] [address] [facility] [place] [address] Chun Porras MD Erectile dysfunction, unspecified erectile dysfunction type 02/10/2025 Patient Outreach [facility] [address] [facility] [place] [address] Chun Porras MD Pre-visit Planning (SDOH screening was completed on 09/10/2024) 02/05/2025 11:00 AM EDT Clinical Support [facility] [address] [facility] [place] [address] Maritza Mejia, cement finishing supervisor midline low back pain without sciatica 02/05/2025 Telephone [facility] [address] [place] [address] Vicki Abdi, TREASURY ANALYST Follow-up 02/05/2025 Refill [facility] [address] [facility] [place] [address] Chun Porras MD Chronic midline low back pain without sciatica 02/05/2025 Refill [facility] [address] [place] [address] Maritza Mejia, SANDRA 02/05/2025 Travel 02/03/2025 Orders Only GENERIC EXTERNAL DATA DEPARTMENT Provider, Generic External Data 01/31/2025 Refill [facility] [address] [facility] [place] [address] Chun Porras MD Essential hypertension; Type 2 diabetes mellitus without complication, unspecified whether terminal clerk insulin use ([facility]) 01/13/2025 Orders Only GENERIC EXTERNAL DATA DEPARTMENT Provider, Generic External Data from Last 3 Months Immunizations Immunization Administration Dates Next Due Influenza injectable quadriv [...] Sign Reading Time Taken Comments Blood Pressure 106/68 02/18/2025 9:16 AM EDT Pulse 65 02/18/2025 9:16 AM EDT Temperature 36.3 C (97.3 F) 02/18/2025 9:16 AM EDT Respiratory Rate 20 02/18/2025 9:16 AM EDT Oxygen Saturation 97% 02/18/2025 9:16 AM EDT Inhaled Oxygen Concentration - - Weight 83.1 kg (183 lb 3.2 oz) 02/18/2025 9:16 A M EDT Height 177.8 cm (5' 10 ) 02/18/2025 9:16 AM EDT Body Mass Index 26.29 02/18/2025 9:16 AM EDT Plan of Treatment Upcoming Encounters Date Type Department Care Team (Late st Contact Info) Description 05/07/2025 10:00 AM EDT Clinical Support [facility] [address] [place] [address] Maritza Mejia, SANDRA [address] [place] [address] 07/02/2025 2:30 PM EST Office Visit [facility] [address] [place] [address] Becka You, OD [address] [place] [address] Health Maintenance Due Date Last Done Comments CT Colonography 1960 FIT DNA/Cologuard 1960 FIT 1960 FOBT 1960 Sigmoidoscopy 1960 Diabetes: Foot Exam 1968 RSV Patients and Patients Aged 60 years or older (1 - Risk 60-74 years 1-dose series) 2018 Lipid Panel 11/10/2023 11/09/2022, 11/13, 05/26/2020 COVID-19 Vaccine ( season) 2025 06/09/2024, 05/16/2022, 12/06/2021, Additional history exists Influenza Vaccine (#1) 2025 , 04/10/2022, 06/13/2021, Additional history exists Depression Monitoring 03/25/2025 09/22/2024, 025 Diabetes: Hemoglobin A1C 05/21/2025 025, 12/10/2024, 09/10/2024, Additional history exists Alcohol/Substance Use Screening 06/09/2025 06/09/2024 Colonoscopy 07/27/2025 07/27/2020 Colorectal Cancer Screening 07/27/2025 SDOH Screening 09/10/2025 09/10/2024 Tobacco Screening 12/10/2025 12/10/2024 Eye Exam 01/22/2026 01/23/2024, 0707/2023, 01/23/2024, Additional history exists Diabetes: Urine Protein Screening 02/23/2026 02/23/2025 DTaP/Tdap/Td Vaccines (3 - Td or Tdap) 02/16/2032 02/15/2022, 09/30/2014 Zoster Vaccines Completed 02/05/2022, 12/05/2021 Hepatitis C Screening Completed 12/20/2022 , 08/01/2021, 06/05/2021 Pneumococcal Vaccine: 50+ Years Completed 01/22/2023, 08/02/2014 HIB Vaccines Aged Out No longer eligi [...] patient's age to complete this topic Meningococcal B Vaccine Aged Out No l onger eligible based on patient's age to complete [...] hypertension 106/68(2024 9:16 AM EDT) No Lynsey Madison PharmD Procedures Procedure Name Priority Date/Time Associated Diagnosis Comments ALBUMIN, RANDOM URINE W/CREATININE Routine 02/23/2025 12:59 PM EDT Type 2 diabetes mellitus without complication, without long-term current use of insulin ([facility]) POCT GLYCATED HEMOGLOBIN, TOTAL Routine 02/18/2025 9:26 AM EDT Type 2 diabetes mellitus without complication, without long-term current use of insulin ([facility]) POCT GLUCOSE Routine 02/18/2025 9:22 AM EDT Type 2 diabetes mellitus without complication, without long-term current use of insulin ([facility]) POCT LORENA-14 URINE DRUG SCREEN Routine 02/05/2025 10:29 AM EDT Chronic midline low back pain without sciatica XR CHEST 2 VIEWS Routine 02/03/2025 9:15 PM EDT COMPREHENSIVE METABOLIC PANEL Routine 02/03/2025 9:10 PM EDT B TYPE NATRIURETIC PEPTIDE (BNP) Routine 02/03/2025 9:10 PM EDT PROTHROMBIN TIME-INR Routine 02/03/2025 9:10 PM EDT CBC WITH AUTO DIFFERENTIAL Routine 02/03/2025 9:10 PM EDT PSA, TOTAL Routine 01/13/2025 10:26 AM EDT HEPATITIS C AB W/REFL TO HCV RNA, QN, PCR Routine 12/20/2022 10:56 AM EDT Unexplained night sweats LIPID PANEL, STANDARD Routine 11/09/2022 11:21 AM EDT Pre-op exam HM COLONOSCOPY Routine 07/27/2020 from Last 3 Months or Most Recently Relevant to Health Maintenance Results * Albumin, Random Urine W/Creatinine (02/23/2025 12:59 PM EDT) Creatinine, Urine 72.62 mg/dL [facility] Microalbumin Urine <5.0 mg/L [facility] Microalbum Creatinine Ratio Ur TNP <30 ug/mg cr [facility] Comment:Unable to calculate albumin/creatinine ratio due to lowmicroalbumin or creatinine result. Urine (Urine, Random) 02/23/2025 12:59 PM EDT 02/23/2025 2:17 PM EDT Chun Mckinley MD LAB URINE ORDERABLES Final Result [facility] [address] [place] [phone] * (ABNORMAL) POCT HGB A1C (02/18/2025 9:26 AM EDT) Hemoglobin A1C 6.3(A) 4.0 - 5.7 % QC Media Lot # [id number] Lot# Expiration Date Blood 02/18/2025 9:26 AM EDT Chun Mckinley MD POINT OF CARE TEST EN TER/EDIT ORDERABLES Final Result * POCT Glucose (02/18/2025 9:22 AM EDT) Pathologist [facility] Glucose Blood, POC 148 60 - 200 mg/dL QC Media Lot # [id number] Lot# Expiration Date [id number] Blood Capillary blood specimen / Unknown 02/18/2025 9:22 AM EDT Chun Mckinley MD POINT OF CARE TEST EN TER/EDIT ORDERABLES Final Result * (ABNORMAL) POCT LORENA-14 Urine Drug Screen (02/05/2025 10:29 AM EDT) Pathologist [facility] THC Positive(A) Negative Cocaine Screen, Urine Negative Negative Opiate Screen, Urine Negative Negative Methamphetamine Screen Urine Negative Negative Amphetamine Screen, Urine Negative Negative Benzodiazepines Screen, Urine Negative Negative Barbiturate Screen, Urine Negative Negative Methadone Screen, Urine Negative Negative Buprenophine Screen, Urine Negative Negative TCA, Urine Positive(A) Negative MDMA Urine Negative Negative ng/mL Oxycodone Screen, Urine Negative Negative Phencyclidine (PCP), Urine Negative Negative Propoxyphene, Urine Negative Negative Fentanyl, Urine Negative Negative Urine Urine specimen obtained by clean catch procedure / Unknown 02/05/2025 10:29 AM EDT Narrative Maritza Mejia RN - 02/05/2025 10:29 AM EDT .UTOX cup Lot#[id number] Exp. 04/20/26 Internal Pass Control Chun Mckinley MD POINT OF CARE TEST EN TER/EDIT ORDERABLES Final Result * XR Chest 2 Views (02/03/2025 9:15 PM EDT) Anatomical Region Laterality Modality Chest Radiographic Brenna ging 02/03/2025 9:15 PM EDT Narrative 02/03/2025 9:16 PM EDT [address] [address] XRay Report Signed Patient: Francisco J Romeo MR#: [id number] : 1960 Acct:[id number] Age/Sex: 64 / M ADM Date: 02/03/25 Loc: HO.ED Attending Dr: Ordering Physician: Helena Green NP Date of Service: 02/03/25 Procedure(s): XR chest 2V Accession Number(s): [id number] cc: Chun Michel MD; Helena Green NP CLINICAL HISTORY: dyspnea, pedal edema Chest X-ray, 2 Views COMPARISON: CR - XR CHEST 2V - 10/04/24 17:07 EDT FINDINGS: No consolidation. Bilateral mid to lower lung atelectasis and/or scarring. No pleural effusion. No pneumothorax. No cardiomegaly. No acute fracture. Chronic right rib fractures. IMPRESSION: No acute findings. Nonemergent/incidental findings above. This document has been electronically signed by: Amos Puentes MD on 02/03/2025 21:15:21 Dictated By: Amos Puentes MD Signed By: <Electronically signed by Amos Puentes MD in OV> 02/03/252115 DD/ 14 TD/TT: 02/03/252114 Air Battle Manager: Procedure Note Donotuseinterpreter, Image - 02/03/2025 [place] [address] XRay Report Signed Patient: Emma RomeoR#: M [id number] : 1960cct:[id number] Age/Sex: 64 / MADM Date: 02/03/25 Loc: HO.ED Attending Dr: Ordering Physician: Helena Green NP Date of Service: 02/03/25 Procedure(s): XR chest 2V Accession Number(s): [id number] cc: Chun Michel MD; Helena Green NP CLINICAL HISTORY: dyspnea, pedal edema Chest X-ray, 2 Views COMPARISON: CR - XR CHEST 2V - 10/04/24 17:07 EDT FINDINGS: No consolidation. Bilateral mid to lower lung atelectasis and/or scarring. No pleural effusion. No pneumothorax. No cardiomegaly. No acute fracture. Chronic right rib fractures. IMPRESSION: No acute findings. Nonemergent/incidental findings above. This document has been electronically signed by: Amos Puentes MD on 02/03/2025 21:15:21 Dictated By: Amos Puentes MD Signed By: <Electronically signed by Amos Puentes MD in OV> 02/03/252115 DD/ 14 TD/TT: 02/03/252114 Air Battle Manager: [facility] External Provider IMG XR PROCEDURES Edited Result - Final * (ABNORMAL) CBC auto differential (02/03/2025 9:10 PM EDT) White Blood Count 9.5 4.8 - 10.8 X10*3/uL [facility] Red Blood Count 4.65 4.60 - 5.80 X10*6/uL [facility] Hemoglobin 13.8(L) 14.0 - 18.0 g/dl [facility] Hematocrit 39.9(L) 42.0 - 52.0 % [facility] Mean Corpuscular Volume 85.8 80.0 - 98.0 fL [facility] Mean Corpuscular Hemoglobin 29.7 27.0 - 33.0 pg [facility] Mean Corpuscular HGB Conc 34.6 31.0 - 36.0 g/dl [facility] Red Cell Distribution Width 12.9 11.0 - 16.0 % [facility] Platelet Count 240 160 - 400 X10*3/uL [facility] Mean Platelet Volume 9.9 9.4 - 12.4 fL [facility] Neutrophils Percent Auto 71.2 45 - 73 % [facility] Imm Gran Pct Auto 0.2 0.0 - 0.4 % [facility] Lymphocytes Percent Auto 16.2(L) 20 - 40 % [facility] Monocytes Percent Auto 10.2 2 - 11 % [facility] Eosinophils Percent Auto 1.9 0 - 4 % [facility] Basophils Percent Auto 0.3 0 - 2 % [facility] NRBC Pct Auto 0.0 0.0 - 0.2 /100WBC [facility] Neutrophils Absolute Auto 6.8 2.0 - 8.3 x10*3/uL [facility] Imm Gran Abs Auto 0.02 0.00 - 0.03 X10*3/uL [facility] Lymphocytes Absolute Auto 1.5 1.2 - 4.9 X10*3/uL [facility] Monocytes Absolute Auto 1.0 0.1 - 1.2 X10*3/uL [facility] Eosinophils Absolute Auto 0.2 0.0 - 0.4 X10*3/uL [facility] Basophils Absolute Auto 0.0 0.0 - 0.2 X10*3/uL [facility] NRBC Abs Auto 0.000 0.0 - 0.012 X10*3/uL [facility] 02/03/2025 9:10 PM EDT 02/03/2025 9:14 PM EDT us Generic External Data Provider LAB BLOOD ORDERAB LES Final Result Performing Organization Address City/State/[facility] Co de Phone Number [facility] [address] [place] [phone] * Prothrombin Time-INR (02/03/2025 9:10 PM EDT) Prothrombin Time 10.9 10.9 - 12.4 SEC [facility] INTERNATIONAL NORM RATIO 1.0 0.9 - 1.1 [facility] Comment:INTERNATIONAL NORMAL IZED RATIO (INR) REFERENCE RANGES Reference RangeFor patients not on anticoagulant therapy: 0.9 - 1.1INR ranges for oral anticoagulanttherapy:For prevention and treatment of venous thrombosis and pulmonary embolism: 2.0 - 3.0For acute myocardial infarction with aspirin therapy: 2.0 - 3.0For acute myocardial infarction without aspirin therapy: 3.0 - 4.0For patients with mechanical prosthetic heart valves: 2.5 - 3.5 02/03/2025 9:10 PM EDT 02/03/2025 9:14 PM EDT us Generic External Data Provider LAB BLOOD ORDERAB LES Final Result Performing Organization Address City/[facility]/ZIP Co de Phone Number [facility] [address] [place] [phone] [phone] * B Type Natriuretic Peptide (BNP) (02/03/2025 9:10 PM EDT) Pathologist [facility] B Type Natriuretic Peptide 44 <100 pg/mL [facility] 02/03/2025 9:10 PM EDT 02/03/2025 9:14 PM EDT us Generic External Data Provider LAB BLOOD ORDERAB LES Final Result Performing Organization Address [facility] Co de Phone Number [facility] [address] [place] [phone] * (ABNORMAL) Comprehensive Metabolic Panel (02/03/2025 9:10 PM EDT) [facility] Sodium 138 135 - 145 mmol/L [facility] Potassium 4.0 3.3 - 5.1 mmol/L [facility] Chloride 106 96 - 108 mmol/L [facility] Carbon Dioxide 22 22 - 29 mmol/L [facility] Anion Gap 14 12 - 20 [facility] Urea Nitrogen (BUN) 20(H) 9 - 16 mg/dL [facility] Creatinine, Serum 1.14 0.5 - 1.4 mg/dL [facility] Creatinine Clr Calc Pharmacy 65.8 [facility] Comment:eGFR (calculated fro m the MDRD study equation) and eCrCl(calculated from the Cockcroft-Gault equation) are based ondifferent parameters and may not yield comparable results.If eCrCl result is absurd, please check patient'sheight/weight. Estimated Glomerular Filt Rate >60 [facility] Comment:Chronic Kidney Disea se: Estimated GFR < 60 mL/min/1.88a6Lzmvgn Kidney Disease: Estimated GFR < 15 mL/min/1.73m2 Glucose 149(H) 60 - 115 mg/dL [facility] Calcium 9.2 8.4 - 10.2 mg/dL [facility] Bilirubin, Total 0.4 0.0 - 1.0 mg/dL [facility] Aspartate Amino Transferase 27 5 - 37 U/L [facility] Alanine Aminotransferase 27 0 - 40 U/L [facility] Total Protein 7.5 6.5 - 8.0 g/dL [facility] Albumin Level 4.6 3.5 - 5.0 g/dL [facility] Alkaline Phosphatase 88 39 - 117 U/L [facility] 02/03/2025 9:10 PM EDT 02/03/2025 9:14 PM EDT Generic External Data Provider LAB BLOOD ORDERAB LES Final Result Performing Organization Address [facility]/ZIP Co de Phone Number [facility] [address] [place] [phone] * PSA,Total (01/13/2025 10:26 AM EDT) Prostate Specific Antigen 1.58 <0.05 - 4.0 ng/mL [facility] Comment:PSA methodology: Moody Meza i ChemiluminescentMicroparticle Immunoassay (CMIA) 01/13/2025 10:2 6 AM EDT 01/13/2025 10:26 AM EDT Generic External Data Provider LAB BLOOD ORDERAB LES Final Result Performing Organization Address [facility]/ZIP Co de Phone Number [facility] [address] [place] [phone] * Hepatitis C Antibody with Reflex to HCV, RNA, Quantitative, Real-Time PCR (12/20/2022 10:56 AM EDT) Hepatitis C Antibody NON-REACT FABRICIO NON-REACT FABRICIO [facility] Diagnost Index 0.13 <1.00 [facility] [place] [facility] Comment: HCV antibody was non-reactive. There is no laboratory evidence of HCV infection. In most cases, no further action is required. However, if recent HCV exposure is suspected, a test for HCV RNA (test code 07747) is suggested. For additional information please refer to http://[employer]faq/ITC80q9 (This link is being provided for informational/ educational purposes only.) Blood Venous blood specimen / Unknown 12/20/2022 10:56 AM EDT 12/20/2022 10:56 AM EDT Narrative [facility] - 12/21/2022 5:38 AM EDT FASTING:YES FASTING: YES Chun Mckinley MD LAB BLOOD ORDERABLES Final Result [address], [place] [address] [facility] [place] [facility] [address] [place] [address] * Lipid Panel, Standard (11/09/2022 11:21 AM EDT) [facility] Signature Cholesterol, Total 138 <200 mg/dL [facility] [place] [facility] HDL Cholesterol 54 > OR = 40 mg/dL [facility] [place] [facility] Triglycerides 131 <150 mg/dL [facility] [place] [facility] LDL Cholesterol 63 mg/dL (calc) [facility] [place] [facility] Comment: Reference range: <100 Desirable range <100 mg/dL for primary prevention; <70 mg/dL for patients with CHD or diabetic patients with > or = 2 CHD risk factors. LDL-C is now calculated using the Manav-Hernandez calculation, which is a validated novel method providing better accuracy than the Friedewald equation in the estimation of LDL-C. Manav SS et al. DIONICIO. 2013;310(19): 6369-7727 (http://[employer]/faq/SXK438) Chol/HDLC Ratio 2.6 <5.0 (calc) [facility] [place] [facility] Non-HDL Cholesterol 84 <130 mg/dL (calc) [facility] Comment: For patients with diabetes plus 1 major ASCVD risk factor, treating to a non-HDL-C goal of <100 mg/dL (LDL-C of <70 mg/dL) is considered a therapeutic option. Blood Venous blood specimen / Unknown 11/09/2022 11:21 AM EDT 11/09/2022 11:21 AM EDT Narrative [facility] - 11/10/2022 8:06 AM EDT FASTING:NO FASTING: NO Colleen Lou RAILROAD AUDITOR LAB BLOOD ORDERABLES Final Resu lt [employer] [address], [place] [address] [facility] [place] [facility] [address] [place] [address] * Colonoscopy (07/27/2020) Colonoscopy Normal Normal 07/27/2020 Blossom Spencer - 07/27/2020 2:25 PM EST Recommended 5 year follow up ( see GI note 08/17/2020) Historical Provider HEALTH MAINTENANCE Edited Result - Final from Last 3 Months or Most Recently Relevant to Health Maintenance Insurance [facility] OPTIONS (O D-SNP) [place] [id number] Care Teams Metal Stamper Relationship Specialty Start Date End Date Chun Porras MD [address] [place] [address] PCP - General Internal Medicine 05/26/14 Lynsey Madison, MichaelD [address] [place] [address] Pharmacist Internal Medicine 09/26/23
--- OUTSIDE RECORDS SUMMARY | 2025-04-15 13:41 | XMS_ITS | Encounter Summary ---
Author Organization [employer] Address [address] [facility] 7t [place] [address] Care Team Providers Care Driver Courier Name Role Phone Chun Porras MD Primary Care Provide r Lynsey Madison PharmD Unavailable [phone] Reason for Visit * Reason Comments Med Refill Encounter Details Date Type Department Care Team ([facility] st Contact Info) Description 11/14/2023 Refill [facility] [address] [place] [address] Chun Porras MD [address] [place] [address] Chronic midline low back pain without sciatica [...] Description 05/07/2025 10:00 AM EDT Clinical Support [facility] [address] [place] [address] Maritza Mejia RN [address] [place] [address] 07/02/2025 2:30 PM EST Office Visit [facility] OPTOMETRY [address] [place] [address] Becka You, OD [address] [place] [address] documented as of this encounter Goals Goal [...] documented as of this encounter Care Teams Driver Courier Relationship Specialty Start Date End Date Chun Porras MD [address] [place] [address] PCP - General Internal Medicine 05/26/14 Lynsey Madison, MichaelD [address] [place] [address] Pharmacist Internal Medicine 09/26/23 documented as of this encounter
--- OUTSIDE RECORDS SUMMARY | 2025-04-15 13:41 | XMS_ITS | Encounter Summary ---
Author Organization [employer] Address [address] [facility] 7t [place] [address] Care Team Providers Care Medical Transcription Name Role Phone Chun Porras MD Primary Care Provide r Lynsey Madison PharmD Unavailable [phone] Reason for Visit * Reason Comments Med Refill Encounter Details Date Type Department Care Team ([facility] st Contact Info) Description 04/23/2023 Refill [facility] [address] [place] [address] Chun Porras MD [address] [place] [address] Benign prostatic hyperplasia with lower urinary tract [...] Description 05/07/2025 10:00 AM EDT Clinical Support [facility] [address] [place] [address] Maritza Mejia, SANDRA [address] [place] [address] 07/02/2025 2:30 PM EST Office Visit [facility] OPTOMETRY [address] [place] [address] Avelino, Becka, OD [address] [place] [address] documented as of this encounter Visit Diagnoses Diagnosis Benign prostatic hyperplasia with lower urinary tract symptoms documented in this encounter Additional Health Concerns Assessment Noted Time PHQ-9 Depression Total Score: 3 07/06/20 22 11:00 AM EST documented as of this encounter Care Teams Medical Transcription Relationship Specialty Start Date End Date Chun Porras MD [address] [place] [address] PCP - General Internal Medicine 05/26/14 Lynsey Madison PharmD [address] [place] [address] Pharmacist Internal Medicine 09/26/23 documented as of this encounter
--- OUTSIDE RECORDS SUMMARY | 2025-04-15 13:41 | XMS_ITS | Encounter Summary ---
Author Organization [employer] Address [address] [facility] 7t [place] [address] Care Team Providers Care Demand Equipment Repairer Name Role Phone Chun Porras MD Primary Care Provide r Lynsey Madison PharmD Unavailable [phone] Reason for Visit * Reason Comments Med Refill Encounter Details Date Type Department Care Team ([facility] st Contact Info) Description 11/12/2024 Refill [facility] [address] [place] [address] Chun Porras MD [address] [place] [address] Chronic midline low back pain without sciatica [...] Description 05/07/2025 10:00 AM EDT Clinical Support [facility] [address] [place] [address] Maritza Mejia, SANDRA [address] [place] [address] 07/02/2025 2:30 PM EST Office Visit [facility] OPTOMETRY [address] [place] [address] Becka You, OD [address] [place] [address] documented as of this encounter Goals Goal [...] documented as of this encounter Care Teams Demand Equipment Repairer Relationship Specialty Start Date End Date Chun Porras MD [address] [place] [address] PCP - General Internal Medicine 05/26/14 Lynsey Madison PharmD [address] [place] [address] Pharmacist Internal Medicine 09/26/23 documented as of this encounter
--- OUTSIDE RECORDS SUMMARY | 2025-04-15 13:41 | XMS_ITS | Encounter Summary ---
Author Organization [employer] Address [address] [facility] 7t [place] [address] Care Team Providers Care Page Technician Name Role Phone Chun Porras MD Primary Care Provide r Lynsey Madison PharmD Unavailable [phone] Reason for Visit * Reason Comments Med Refill Encounter Details Date Type Department Care Team (Late st Contact Info) Description 10/18/2023 Refill [facility] [address] [place] [address] Chun Porras MD [address] [place] [address] Essential hypertension Social History Tobacco Use Types [...] Description 05/07/2025 10:00 AM EDT Clinical Support [facility] [address] [place] [address] Maritza Mejia, SANDRA [address] [place] [address] 07/02/2025 2:30 PM EST Office Visit [facility] OPTOMETRY [address] [place] [address] Avelino, Becka, OD [address] [place] [address] documented as of this encounter Goals Goal Patient Goal Type Associated Problems Recent Progress Patient-Stated? Author Blood Pressure < 140/90 Blood Pressure Essential hypertension 106/68(2024 9:16 AM EDT) No Lynsey Madison PharmD documented as of this encounter Visit Diagnoses Diagnosis Essential hypertension Unspecified essential hypertension documented in this encounter Additional Health Concerns Assessment Noted Time PHQ-9 Depression Total Score: 3 07/06/20 22 11:00 AM EST documented as of this encounter Care Teams Page Technician Relationship Specialty Start Date End Date Chun Porras MD [address] [place] [address] PCP - General Internal Medicine 05/26/14 Lynsey Madison PharmD [address] [place] [address] Pharmacist Internal Medicine 09/26/23 documented as of this encounter
--- OUTSIDE RECORDS SUMMARY | 2025-04-15 13:41 | XMS_ITS | Encounter Summary ---
Author Organization [employer] Address [address] [facility] 7t [place] [address] Care Team Providers Care First Aid Nurse Name Role Phone Chun Porras MD Primary Care Provide r Lynsey Madison PharmD Unavailable [phone] Reason for Visit * Reason Comments Med Refill Encounter Details Date Type Department Care Team ([facility] st Contact Info) Description 11/12/2024 Refill [facility] [address] [place] [address] Chun Porras MD [address] [place] [address] Chronic midline low back pain without sciatica [...] Description 05/07/2025 10:00 AM EDT Clinical Support [facility] [address] [place] [address] Maritza Mejia, SANDRA [address] [place] [address] 07/02/2025 2:30 PM EST Office Visit [facility] OPTOMETRY [address] [place] [address] Becka You, OD [address] [place] [address] documented as of this encounter Goals Goal [...] documented as of this encounter Care Teams First Aid Nurse Relationship Specialty Start Date End Date Chun Porras MD [address] [place] [address] PCP - General Internal Medicine 05/26/14 Lynsey Madison PharmD [address] [place] [address] Pharmacist Internal Medicine 09/26/23 documented as of this encounter
--- OUTSIDE RECORDS SUMMARY | 2025-04-15 13:41 | XMS_ITS | Encounter Summary ---
Author Organization [employer] Address [address] [facility] 7t [place] [address] Care Team Providers Care Community Outreach Director Name Role Phone Chun Porras MD Primary Care Provide r Lynsey Madison PharmD Unavailable [phone] Reason for Visit * Reason Comments Med Refill Encounter Details Date Type Department Care Team ([facility] Contact Info) Description 07/20/2022 Refill [facility] [address] [place] [address] Chun Porras MD [address] [place] [address] Chronic midline low back pain without sciatica [...] Department Care Team (Late Contact Info) Description 05/07/2025 10:00 AM EDT Clinical Support [facility] [address] [place] [address] Maritza Mejia, RN [address] [place] [address] 07/02/2025 2:30 PM EST Office Visit [facility] OPTOMETRY [address] [place] [address] Becka You, OD [address] [place] [address] documented as of this encounter Visit Diagnoses Diagnosis Chronic midline low back pain without sciatica documented in this encounter Additional Health Concerns Assessment Noted Time PHQ-9 Depression Total Score: 3 07/06/20 22 11:00 AM EST documented as of this encounter Care Teams Community Outreach Director Relationship Specialty Start Date End Date Chun Porras MD [address] [place] [address] PCP - General Internal Medicine 05/26/14 Lynsey Madison PharmD [address] [place] [address] Pharmacist Internal Medicine 09/26/23 documented as of this encounter
--- OUTSIDE RECORDS SUMMARY | 2025-04-15 13:41 | XMS_ITS | Encounter Summary ---
Author Organization [employer] Address [address] [facility] 7t [place] [address] Care Team Providers Care Manager Programs Name Role Phone Chun Porras MD Primary Care Provide r Lynsey Madison PharmD Unavailable [phone] Reason for Visit * Reason Comments Med Refill Encounter Details Date Type Department Care Team ([facility] st Contact Info) Description 04/14/2025 Refill [facility] MED[facility] [address] [place] [address] Chun Porras MD [address] [place] [address] Erectile dysfunction, unspecified erectile dysfunction type; Chronic [...] Description 05/07/2025 10:00 AM EDT Clinical Support [facility] [address] [place] [address] Maritza Mejia, SANDRA [address] [place] [address] 07/02/2025 2:30 PM EST Office Visit [facility] OPTOMETRY [address] [place] [address] Becka You, OD [address] [place] [address] documented as of this encounter Goals Goal Patient Goal Type Associated Problems Recent Progress Patient-Stated? Author Blood Pressure < 140/90 Blood Pressure Essential hypertension 106/68(2024 9:16 AM EDT) No Lynsey Madison, PharmD documented as of this encounter Visit Diagnoses Diagnosis Erectile dysfunction, unspecified erectile dysfunction type Chronic midline low back pain without sciatica documented in this encounter Additional Health Concerns Assessment Noted Time PHQ-9 Depression Total Score: 19 025 1:13 PM EDT documented as of this encounter Care Teams Manager Programs Relationship Specialty Start Date End Date Chun Porras MD [address] [place] [address] PCP - General Internal Medicine 05/26/14 Lynsey Madison PharmD [address] [place] [address] Pharmacist Internal Medicine 09/26/23 documented as of this encounter
--- OUTSIDE RECORDS SUMMARY | 2025-04-15 13:41 | XMS_ITS | Encounter Summary ---
Author Organization [employer] Address [address] [facility] 7t [place] [address] Care Team Providers Care Senior Net Software Developer Name Role Phone Chun Porras MD Primary Care Provide r Lynsey Madison PharmD Unavailable [phone] Encounter Details Date Type Department Care Team ([facility] Contact Info) Description 11/14/2022 Abstract [facility] MEDICINE [address] [place] [address] Chun Porras MD [address] [place] [address] Social History Tobacco Use Types Packs/Day Years [...] Description 05/07/2025 10:00 AM EDT Clinical Support [facility] MEDICINE [address] [place] [address] Maritza Mejia, RN [address] [place] [address] 07/02/2025 2:30 PM EST Office Visit [facility] OPTOMETRY [address] [place] [address] Becka You, OD [address] [place] [address] documented as of this encounter Procedures Procedure [...] as of this encounter Care Teams Senior Net Software Developer Relationship Specialty Start Date End Date Chun Porras MD [address] [place] [address] PCP - General Internal Medicine 05/26/14 Lynsey Madison PharmD [address] [place] [address] Pharmacist Internal Medicine 09/26/23 documented as of this encounter
--- OUTSIDE RECORDS SUMMARY | 2025-04-15 13:41 | XMS_ITS | Encounter Summary ---
Author Organization [employer] Address [address] [facility] 7t [place] [address] Care Team Providers Care Shipping Inspector Name Role Phone Chun Porras MD Primary Care Provide r Lynsey Madison PharmD Unavailable [phone] Reason for Visit * Reason Comments Med Refill Encounter Details Date Type Department Care Team ([facility] st Contact Info) Description 06/21/2023 Refill [facility] [address] [place] [address] Chun Porras MD [address] [place] [address] Type 2 diabetes mellitus without complication, unspecified whether oysterman insulin use ([facility]); Mixed hyperlipidemia Social History Tobacco Use [...] Description 05/07/2025 10:00 AM EDT Clinical Support [facility] [address] [place] [address] Maritza Mejia, RN [address] [place] [address] 07/02/2025 2:30 PM EST Office Visit [facility] OPTOMETRY [address] [place] [address] Becka You, OD [address] [place] [address] documented as of this encounter Visit Diagnoses Diagnosis Type 2 diabetes mellitus without complication, unspecified whether fci insulin use Mixed hyperlipidemia documented in this encounter Additional Health Concerns Assessment Noted Time PHQ-9 Depression Total Score: 3 07/06/20 22 11:00 AM EST documented as of this encounter Care Teams Shipping Inspector Relationship Specialty Start Date End Date Chun Porras MD [address] [place] [address] PCP - General Internal Medicine 05/26/14 Lynsey Madison PharmD [address] [place] [address] Pharmacist Internal Medicine 09/26/23 documented as of this encounter
--- OUTSIDE RECORDS SUMMARY | 2025-04-15 13:41 | XMS_ITS | Encounter Summary ---
Author Organization [employer] Address [address] [facility] 7t [place] [address] Care Team Providers Care Manager Ui Name Role Phone Chun Porras MD Primary Care Provide r Lynsey Madison PharmD Unavailable [phone] Reason for Visit * Reason Comments Med Refill Encounter Details Date Type Department Care Team ([facility] st Contact Info) Description 11/14/2023 Refill [facility] MEDICINE [address] [place] [address] Chun Porras MD 230 [place] [address] Chronic midline low back pain without sciatica [...] Description 05/07/2025 10:00 AM EDT Clinical Support [facility] MEDICINE 230 [place] [address] Maritza Mejia RN [address] [place] [address] 07/02/2025 2:30 PM EST Office Visit [facility] OPTOMETRY [address] [place] [address] Becka You, OD 230 [place] [address] documented as of this encounter Goals Goal [...] as of this encounter Care Teams Manager Ui Relationship Specialty Start Date End Date Chun Porras MD [address] [place] [address] PCP - General Internal Medicine 05/26/14 Lynsey Madison, MichaelD [address] [place] [address] Pharmacist Internal Medicine 09/26/23 documented as of this encounter
--- OUTSIDE RECORDS SUMMARY | 2025-04-15 13:41 | XMS_ITS | Encounter Summary ---
Author Organization [employer] Address [address] [facility] 7t [place] [address] Care Team Providers Care Risk Investigator Name Role Phone Chun Porras MD Primary Care Provide r Lynsey Madison PharmD Unavailable [phone] Reason for Visit * Reason Comments Med Refill Encounter Details Date Type Department Care Team ([facility] st Contact Info) Description 09/18/2023 Refill [facility] MEDICINE 230 [place] [address] Chun Porras MD 230 [place] [address] Mixed hyperlipidemia Social History Tobacco Use Types [...] Description 05/07/2025 10:00 AM EDT Clinical Support [facility] MEDICINE [address] [place] [address] Maritza Mejia, SANDRA 505 [place] [address] 07/02/2025 2:30 PM EST Office Visit [facility] OPTOMETRY [address] [place] [address] Avelino, Becka, OD [address] [place] [address] documented as of this encounter Goals Goal [...] documented as of this encounter Care Teams Risk Investigator Relationship Specialty Start Date End Date Chun Porras MD [address] [place] [address] PCP - General Internal Medicine 05/26/14 Lynsey Madison, Sherwin [address] [place] [address] Pharmacist Internal Medicine 09/26/23 documented as of this encounter
--- NOTE | 2025-04-15 13:59 | MHC.OFFVIS ---
Vital Signs 04/15/25 14:19 Height 5 ft 10 in Weight 173 lb BMI 24.8 BP 130/76 Blood Pressure Location Rt brachial Position Sitting Pulse 93 Intake Visit Reasons: H pylori Intake Note: Patient in office today in follow up of H Pylori. CC: Patient reports doing well and denies having any GI symptoms today. Net Software Architect Required: Yes Net Software Architect Language: Vietnamese Accompanied by: Self / Same As Patient Allergies No Known Allergies (No Known Allergies*) Allergy (Verified 04/15/25 14:24) HPI HPI H pylori: Details: Assessment & Plan (1) H. pylori duodenitis: Comment: Discovered on 05/2024 EGD treated with quadruple therapy Code(s): K29.80 - Duodenitis without bleeding; B96.81 - Helicobacter pylori [H. pylori] as the cause of diseases classified elsewhere Category: Medical (2) GERD (gastroesophageal reflux disease): Code(s): K21.9 - Gastro-esophageal reflux disease without esophagitis Category: Medical (3) Merlos's esophagus determined by biopsy: Comment: 06/2024 EGD=HP and SSBE Code(s): K22.70 - Merlos's esophagus without dysplasia Category: Medical (4) Erosive gastritis: Comment: Likely related to H pylori infection Code(s): K29.60 - Other gastritis without bleeding Category: Medical (5) IBS (irritable bowel syndrome): Code(s): K58.9 - Irritable bowel syndrome, unspecified Category: Medical Plan Vietnamese #Cristina Ns Suze He is here today with a female family member who is supportive Patient was treated in July with quadruple therapy. We will need to retest for eradication. HE did not understand well about the H pylori, so I spend time educating them. He has been feeling much better since completing the therapy. We may consider decreasing the aciphex going forward after we confirm eradication. Return office visit in 8 weeks Orders: Orders H pylori Ag Stool Today B96.81 - Helicobacter pylori [H. pylori] as the cause of diseases classified elsewhere, K29.80 - Duodenitis without bleeding LABS: Laboratory Tests 02/23/25 12:59 Stool H. pylori Ag NEGATIVE TODAY'S VISIT [facility] Medical History H. pylori duodenitis New abnormality on chest x-ray REJI (acute kidney injury) Urgency of micturition Urinary hesitancy Nocturia more than twice per night Benign prostatic hyperplasia with weak urinary stream Epidermal inclusion cyst Atelectasis Fecal incontinence Flank lipoma Asthma-COPD overlap syndrome IBS (irritable bowel syndrome) Umbilical hernia Diabetes Arthritis Back pain GERD (gastroesophageal reflux disease) Bipolar 1 disorder Anxiety Depression Elevated cholesterol Tension pneumothorax, spontaneous Hypertension Asthma Surgical History History of esophagogastroduodenoscopy (EGD) S/P excision of lipoma (02/20/23) History of excision of mass (12/13/22) Hx of colonoscopy Hx of tracheostomy History of lung surgery Hx of hernia repair Family History Mother Stomach cancer Brother Prostate cancer Brother Prostate cancer Social History Household Members: None Housing: Apartment Do you presently have visiting nurse or other home services: No Alcohol intake: current Alcohol intake frequency: holidays/special occasions only Alcohol type: beer Patient Tobacco Use Status: Never used Tobacco e-Cigarette/Vaping Use: Never Used Second Hand Smoke Exposure: No Substance Use Type: Marijuana Advance Directives Date on File: 03/28/21 service: No Current occupational status: unemployed Review of Systems Const Denies fatigue, Denies fever(s), Denies night sweats, Denies poor appetite and Denies weight loss ENT Reports Normal hearing present, Denies dental pain, Denies dysphagia, Denies hearing loss, Denies mouth pain, Denies odynophagia, Denies throat swelling, Denies tongue swelling and Reports other (Dentition adequate) Card Reports no additional complaints Resp Reports no additional complaints GI Details: Denies abdominal pain, Denies melena, Reports bloating, Denies hematochezia, Denies constipation, Denies GI cramping, Denies dysphagia, Denies excessive flatus, Denies early satiety, Reports heartburn, Denies diarrhea, Denies nausea, Denies odynophagia, Denies vomiting and Denies hematemesis Musc Reports abnormal gait Skin/Breast Denies pruritus, Denies lesions, Denies rash and Denies jaundice Neuro Reports Normal hearing present, Denies Abnormal speech present and Reports abnormal gait Endo Denies fatigue Aller/Immun Denies throat swelling and Denies tongue swelling Physical Exam Vital Signs: Last Vital Signs Pulse 93 04/15/25 14:19 BP 130/76 04/15/25 14:19 BMI result Body Mass Index 24.8 Const General: cooperative, no acute distress, well developed and well groomed Nutritional Appearance: well nourished and overweight Orientation/consciousness: oriented to person, oriented to place and oriented to time Limitations: language barrier and ambulation with cane HEENT Head: Yes normocephalic and Yes atraumatic Eyes General: appearance normal, both eyes and all related structures Pupils: Equal, round and reactive pupils present Neck Neck: Yes normal visual inspection and Yes no lymphadenopathy Thyroid: Thyroid normal Resp Effort & Inspection: normal respiratory effort and able to speak in complete sentences Auscultation: clear to auscultation bilaterally Cardio Rate: regular rate Rhythm: regular rhythm Heart sounds: Normal, physiologic split S2 sound present Peripheral pulses: radial pulses present and posterior tibial pulses present GI Inspection: No distended, No Abdominal panniculus present and Yes obesity Palpation (GI): Soft to palpation, nontender, no guarding, not rigid and No hepatosplenomegaly present Percussion: Yes normal to percussion Auscultation: normal bowel sounds Rectal Exam - Male: Yes deferred Skin General skin exam: no rashes or lesions noted, turgor normal, skin not dry, no jaundice, No spider nevi and no striae Rashes: no rashes Nails: normal Neuro General: oriented to person, oriented to place and oriented to time Cranial nerves: Yes Equal, round and reactive pupils present and Yes Normal hearing present Speech: No Abnormal speech present Extrem General: Yes normal to inspection, No clubbing, No cyanosis and No edema Psych Appearance: grossly normal and well kempt Mental Status: mental status grossly normal Speech and movement: Normal speech and movement present Thought process: Normal thought process present and not confabulating Thought content: Normal thought content present Insight: Fair insight present (Psych) Judgement: Fair judgement present (Psych) Assessment & Plan Assessment & Plan (1) H. pylori duodenitis: Comment: CONFIRMED ERADICATED VIA STOOL ANTIGEN 03/08/2025 AFTER QUADRUPLE THERAPY TREATMENT Discovered on 05/2024 EGD treated with quadruple therapy Code(s): K29.80 - Duodenitis without bleeding; B96.81 - Helicobacter pylori [H. pylori] as the cause of diseases classified elsewhere Category: Medical (2) GERD (gastroesophageal reflux disease): Code(s): K21.9 - Gastro-esophageal reflux disease without esophagitis Category: Medical Plan Vietnamese #Roz live - The patient is a 64-year-old male presenting with a follow-up on the treatment of Helicobacter pylori infection and management of excessive gas. - Treatment for H. pylori has reportedly resolved the infection. - Patient experiences significant flatulence, questioning the normalcy of such symptoms. - given the confirmation of resolution of the H pylori of the stool antigen, we can try titrating back his omeprazole. He was on 40 mg a day and I will prescribe 20 mg a day and will see if we can even get him off of the medication in order to simplify his future medical regimens. He understands what we are doing and he knows that if he has excessive symptoms then we can continuous therapy. Return office visit in 8 weeks Medications: New omeprazole 20 mg PO DAILY 30 caps 6RF 30 days K21.9 - Gastro-esophageal reflux disease without esophagitis omeprazole 20 mg PO BID 30 days 60 caps 6RF K21.9 - Gastro-esophageal reflux disease without esophagitis Discontinued omeprazole Discontinued Reason: Doctor's Order 40 mg PO DAILY 30 days 30 caps 6RF rabeprazole (AcipHex) Discontinued Reason: Doctor's Order 20 mg PO BID 60 tabs 6RF K21.9 - Gastro-esophageal reflux disease without esophagitis Coding Level of Care Code Est Pt Level 3 (89171) Diagnoses H. pylori duodenitis K29.80; B96.81 GERD (gastroesophageal reflux disease) K21.9
[2025-04-15 14:19] VITALS: BP 130/76; PULSE 93; BMI 24.8
== END 2025-04-15 14:48 | disposition home or self-care (01) ==
LOC: HO.HGI 11:58
PROVIDERS: PCP Internal Medicine; Visit Provider Nurse Practitioner
DX: K29.80 Duodenitis without bleeding (principal); B96.81 Helicobacter pylori [H. pylori] as the cause of diseases classified elsewhere; K21.9 Gastro-esophageal reflux disease without esophagitis
CPT/HCPCS: 99213

== ENCOUNTER → 2025-04-15 11:58 | Outpatient (BNVA) | payer OTHER, SELFPAY | PROVIDERS: PCP Internal Medicine; Visit Provider Nurse Practitioner | DX: K21.9 Gastro-esophageal reflux disease without esophagitis (principal); K29.80 Duodenitis without bleeding; B96.81 Helicobacter pylori [H. pylori] as the cause of diseases classified elsewhere | CPT/HCPCS: 99212 ==

== ENCOUNTER 2025-04-25 06:19 | Emergency (ER) | payer OTHER, SELFPAY ==
--- NOTE | ~2025-04-25 | XR_ITS ---
CLINICAL HISTORY: chest pain 2 view chest x-ray Comparison: CR - XR CHEST 2V - 02/03/25 21:04 EDT Findings: There is no definite focal pneumonia. Subsegmental atelectasis and scarring are seen at the right base. Heart size is normal. No acute fracture. There may be emphysematous changes. IMPRESSION: There is no definite focal pneumonia. Subsegmental atelectasis and scarring are seen at the right base. This document has been electronically signed by: Bruce Arredondo MD on 04/25/2025 08:18:35
--- NOTE | 2025-04-25 06:21 | ECG_ITS ---
Test Reason : CP Blood Pressure : */* mmHG Vent. Rate : 107 BPM Atrial Rate : 107 BPM P-R Int : 148 ms QRS Dur : 96 ms QT Int : 342 ms P-R-T Axes : 58 18 52 degrees QTcB Int : 456 ms Sinus tachycardia Otherwise normal ECG When compared with ECG of 03-Feb-2025 21:11, Vent. rate has increased by 43 bpm Referred By: Generic ED Physician Electronically Signed By: KENDALL LUCERO MD
[2025-04-25 06:23] VITALS: BP 118/75; PULSE 100; RESP 18; TEMP 36.3; O2SAT 97; BMI 29.5
--- OUTSIDE RECORDS SUMMARY | 2025-04-25 06:39 | XMS_ITS | Encounter Summary ---
Author Organization [employer] Address [address] [facility] 7t [place] [address] Care Team Providers Care Nurse Prn Name Role Phone Chun Porras MD Primary Care Provide r Lynsey Madison PharmD Unavailable [phone] Reason for Visit * Reason Comments Med Refill Encounter Details Date Type Department Care Team ([facility] st Contact Info) Description 04/28/2024 Refill [facility] MEDICINE [address] [place] [address] Lynsey Madison, PharmD [address] [place] [address] Type 2 diabetes mellitus without complication, unspecified whether medical terminologist insulin use ([facility]) Social History Tobacco Use Types Packs/Day Years [...] Description 05/07/2025 10:00 AM EDT Clinical Support [facility] MEDICINE [address] [place] [address] Maritza Mejia, SANDRA [address] [place] [address] 07/02/2025 2:30 PM EST Office Visit [facility] OPTOMETRY [address] [place] [address] Becka You, OD [address] [place] [address] documented as of this encounter Goals Goal Patient Goal Type Associated Problems Recent Progress Patient-Stated? Author Blood Pressure < 140/90 Blood Pressure Essential hypertension 106/68(2024 9:16 AM EDT) No Lynsey Madison, PharmD documented as of this encounter Visit Diagnoses Diagnosis Type 2 diabetes mellitus without complication, unspecified whether medical terminologist insulin use documented in this encounter Additional Health Concerns Assessment Noted Time PHQ-9 Depression Total Score: 1 11/12/19 24 11:09 AM EDT documented as of this encounter Care Teams Nurse Prn Relationship Specialty Start Date End Date Chun Porras MD 230 [place] [address] PCP - General Internal Medicine 05/26/14 Lynsey Madison, Sherwin [address] [place] [address] Pharmacist Internal Medicine 09/26/23 documented as of this encounter
--- OUTSIDE RECORDS SUMMARY | 2025-04-25 06:40 | XMS_ITS | Encounter Summary ---
Author Organization [employer] Address [address] [facility] 7t [place] [address] Care Team Providers Care Automotive Parts Interpreter Name Role Phone Chun Porras MD Primary Care Provide r Lynsey Madison PharmD Unavailable [phone] Reason for Visit * Reason Comments Med Refill Encounter Details Date Type Department Care Team ([facility] st Contact Info) Description 02/17/2024 Refill [facility] [address] [place], [place] [phone] Chun Porras MD [address] [place] [address] Chronic midline low back pain without sciatica [...] Description 05/07/2025 10:00 AM EDT Clinical Support [facility] MEDICINE [address] [place] [address] Maritza Mejia, SANDRA [address] [place] [address] 07/02/2025 2:30 PM EST Office Visit [facility] OPTOMETRY [address] [place] [address] Becka You, OD [address] [place] [address] documented as of this encounter Goals Goal [...] documented as of this encounter Care Teams Automotive Parts Interpreter Relationship Specialty Start Date End Date Chun Porras MD [address] [place] [address] PCP - General Internal Medicine 05/26/14 Lynsey Madison, MichaelD [address] [place] [address] Pharmacist Internal Medicine 09/26/23 documented as of this encounter
--- OUTSIDE RECORDS SUMMARY | 2025-04-25 06:40 | XMS_ITS | Encounter Summary ---
Author Organization [employer] Address [address] [facility] 7t [place] [address] Care Team Providers Care Orchardist Name Role Phone Chun Porras MD Primary Care Provide r Lynsey Madison PharmD Unavailable [phone] Reason for Visit * Reason Comments Med Refill Encounter Details Date Type Department Care Team ([facility] st Contact Info) Description 11/14/2023 Refill [facility] MEDICINE [address] [place] [address] Chun Porras MD [address] [place] [address] Chronic midline low back pain without sciatica [...] Description 05/07/2025 10:00 AM EDT Clinical Support [facility] MEDICINE [address] [place] [address] Maritza Mejia RN [address] [place] [address] 07/02/2025 2:30 PM EST Office Visit [facility] OPTOMETRY [address] [place] [address] Becka You, OD [address] [place] [address] documented as of this encounter Goals Goal [...] documented as of this encounter Care Teams Orchardist Relationship Specialty Start Date End Date Chun Porras MD [address] [place] [address] PCP - General Internal Medicine 05/26/14 Lynsey Madison, MichaelD [address] [place] [address] Pharmacist Internal Medicine 09/26/23 documented as of this encounter
--- OUTSIDE RECORDS SUMMARY | 2025-04-25 06:40 | XMS_ITS | Encounter Summary ---
Author Organization [employer] Address [address] [facility] 7t [place] [address] Care Team Providers Care Fancy Packer Name Role Phone Chun Porras MD Primary Care Provide r Lynsey Madison PharmD Unavailable [phone] Reason for Visit * Reason Onset Date Comments Med Refill 03/22/2023 Encounter Details Date Type Department Care Team (Late st Contact Info) Description 03/14/2023 Refill [facility] MEDICINE [address] [place] [address] Chun Porras MD [address] [place] [address] Chronic midline low back pain without sciatica [...] medication. He can be contact any time. Sinhala Speaker * Telephone Encounter - Arlette Phipps [...] 05/07/2025 10:00 AM EDT Clinical Support [facility] MEDICINE [address] [place] [address] Maritza Mejia, SANDRA [address] [place] [address] 07/02/2025 2:30 PM EST Office Visit [facility] OPTOMETRY [address] [place] [address] Avelino, Becka, OD [address] [place] [address] documented as of this encounter Visit Diagnoses Diagnosis Chronic midline low back pain without sciatica documented in this encounter Additional Health Concerns Assessment Noted Time PHQ-9 Depression Total Score: 3 07/06/20 22 11:00 AM EST documented as of this encounter Care Teams Fancy Packer Relationship Specialty Start Date End Date Chun Porras MD [address] [place] [address] PCP - General Internal Medicine 05/26/14 Lynsey Madison PharmD [address] [place] [address] Pharmacist Internal Medicine 09/26/23 documented as of this encounter
--- OUTSIDE RECORDS SUMMARY | 2025-04-25 06:40 | XMS_ITS | Encounter Summary ---
Author Organization [employer] Address [address] [facility] 7t [place] [address] Care Team Providers Care Job Analysis Manager Name Role Phone Chun Porras MD Primary Care Provide r Lynsey Madison PharmD Unavailable [phone] Reason for Visit * Reason Comments Med Refill Encounter Details Date Type Department Care Team (Late st Contact Info) Description 10/18/2023 Refill [facility] MEDICINE [address] [place] [address] Chun Porras MD [address] [place] [address] Essential hypertension Social History Tobacco Use Types [...] Clinical Support [facility] MEDICINE [address] [place] [address] Maritza Mejia, SANDRA [address] [place] [address] 07/02/2025 2:30 PM EST Office Visit [facility] OPTOMETRY [address] [place] [address] Avelino, Becka, OD [address] [place] [address] documented as of this encounter Goals Goal [...] documented as of this encounter Care Teams Job Analysis Manager Relationship Specialty Start Date End Date Chun Porras MD [address] [place] [address] PCP - General Internal Medicine 05/26/14 Lynsey Madison PharmD [address] [place] [address] Pharmacist Internal Medicine 09/26/23 documented as of this encounter
--- OUTSIDE RECORDS SUMMARY | 2025-04-25 06:40 | XMS_ITS | Encounter Summary ---
Author Organization [employer] Address [address] [facility] 7t [place] [address] Care Team Providers Care Ict Teacher Name Role Phone Chun Porras MD Primary Care Provide r Lynsey Madison PharmD Unavailable [phone] Reason for Visit * Reason Comments Med Refill Encounter Details Date Type Department Care Team ([facility] st Contact Info) Description 11/12/2024 Refill [facility] MEDICINE [address] [place] [address] Chun Porras MD [address] [place] [address] Chronic midline low back pain without sciatica [...] Description 05/07/2025 10:00 AM EDT Clinical Support [facility] MEDICINE [address] [place] [address] Maritza Mejia, SANDRA [address] [place] [address] 07/02/2025 2:30 PM EST Office Visit [facility] OPTOMETRY [address] [place] [address] Becka You, OD [address] [place] [address] documented as of this encounter Goals Goal [...] documented as of this encounter Care Teams Ict Teacher Relationship Specialty Start Date End Date Cuhn Porras MD [address] [place] [address] PCP - General Internal Medicine 05/26/14 Lynsey Madison PharmD [address] [place] [address] Pharmacist Internal Medicine 09/26/23 documented as of this encounter
--- OUTSIDE RECORDS SUMMARY | 2025-04-25 06:40 | XMS_ITS | Encounter Summary ---
Author Organization [employer] Address [address] [facility] 7t [place] [address] Care Team Providers Care Registration Coordinator Name Role Phone Chun Porras MD Primary Care Provide r Lynsey Madison PharmD Unavailable [phone] Reason for Visit * Reason Comments Med Refill Encounter Details Date Type Department Care Team ([facility] st Contact Info) Description 07/04/2023 Refill [facility] MEDICINE [address] [place] [address] Chun Porras MD [address] [place] [address] Type 2 diabetes mellitus without complication, unspecified whether buttermaker continuous churn insulin use ([facility]) Social History Tobacco Use [...] Description 05/07/2025 10:00 AM EDT Clinical Support [facility] MEDICINE [address] [place] [address] Maritza Mejia, SANDRA [address] [place] [address] 07/02/2025 2:30 PM EST Office Visit [facility] OPTOMETRY [address] [place] [address] Avelino, Becka, OD [address] [place] [address] documented as of this encounter Visit Diagnoses Diagnosis Type 2 diabetes mellitus without complication, unspecified whether buttermaker continuous churn insulin use documented in this encounter Additional Health Concerns Assessment Noted Time PHQ-9 Depression Total Score: 3 07/06/20 22 11:00 AM EST documented as of this encounter Care Teams Registration Coordinator Relationship Specialty Start Date End Date Chun Porras MD [address] [place] [address] PCP - General Internal Medicine 05/26/14 Lynsey Madison PharmD [address] [place] [address] Pharmacist Internal Medicine 09/26/23 documented as of this encounter
--- OUTSIDE RECORDS SUMMARY | 2025-04-25 06:40 | XMS_ITS | Encounter Summary ---
Author Organization [employer] Address [address] [facility] 7t [place] [address] Care Team Providers Care Sign Builder Supervisor Name Role Phone Chun Porras MD Primary Care Provide r Lynsey Madison PharmD Unavailable [phone] Reason for Visit * Reason Comments Med Refill Encounter Details Date Type Department Care Team ([facility] st Contact Info) Description 04/21/2023 Refill [facility] MEDICINE [address] [place] [address] Name, MD Cristhian [address] [place] [address] Essential hypertension Social History Tobacco Use Types [...] Description 05/07/2025 10:00 AM EDT Clinical Support [facility] MEDICINE [address] [place] [address] Maritza Mejia, SANDRA [address] [place] [address] 07/02/2025 2:30 PM EST Office Visit [facility] OPTOMETRY [address] [place] [address] Avelino, Becka, OD [address] [place] [address] documented as of this encounter Visit Diagnoses Diagnosis Essential hypertension Unspecified essential hypertension documented in this encounter Additional Health Concerns Assessment Noted Time PHQ-9 Depression Total Score: 3 07/06/20 22 11:00 AM EST documented as of this encounter Care Teams Sign Builder Supervisor Relationship Specialty Start Date End Date Chun Porras MD [address] [place] [address] PCP - General Internal Medicine 05/26/14 Lynsey Madison PharmD [address] [place] [address] Pharmacist Internal Medicine 09/26/23 documented as of this encounter
--- OUTSIDE RECORDS SUMMARY | 2025-04-25 06:40 | XMS_ITS | Encounter Summary ---
Author Organization [employer] Address [address] [facility] 7t [place] [address] Care Team Providers Care Literacy Coordinator Name Role Phone Chun Porras MD Primary Care Provide r Lynsey Madison PharmD Unavailable [phone] Reason for Visit * Reason Comments Med Refill Encounter Details Date Type Department Care Team ([facility] st Contact Info) Description 04/23/2023 Refill [facility] [address] [place] [address] Chun Porras MD [address] [place] [address] Benign prostatic hyperplasia with lower urinary tract [...] 05/07/2025 10:00 AM EDT Clinical Support [facility] [address] [place] [address] Mairtza Mejia, SANDRA [address] [place] [address] 07/02/2025 2:30 PM EST Office Visit [facility] [address] [place] [address] Avelino, Becka, OD [address] [place] [address] documented as of this encounter Visit Diagnoses Diagnosis Benign prostatic hyperplasia with lower urinary tract symptoms documented in this encounter Additional Health Concerns Assessment Noted Time PHQ-9 Depression Total Score: 3 07/06/20 22 11:00 AM EST documented as of this encounter Care Teams Literacy Coordinator Relationship Specialty Start Date End Date Chun Porras MD [address] [place] [id number] PCP - General Internal Medicine 05/26/14 Lynsey Madison PharmD [address] [place] [phone] Pharmacist Internal Medicine 09/26/23 documented as of this encounter
--- OUTSIDE RECORDS SUMMARY | 2025-04-25 06:40 | XMS_ITS | Encounter Summary ---
Author Organization [employer] Address [address] [facility] 7t [place] [address] Care Team Providers Care Customs Compliance Specialist Name Role Phone Chun Porras MD Primary Care Provide r Lynsey Madison PharmD Unavailable [phone] Encounter Details Date Type Department Care Team ([facility] Contact Info) Description 11/14/2022 Abstract [facility] [address] [place] [address] Chun Porras MD [address] [place] [address] Social History Tobacco Use Types Packs/Day Years [...] Clinical Support [facility] [address] [place] [address] Maritza Mejia, RN [address] [place] [address] 07/02/2025 2:30 PM EST Office Visit [facility] [address] [place] [address] Becka You, OD [address] [place] [address] documented as of this encounter Procedures Procedure [...] documented as of this encounter Care Teams Customs Compliance Specialist Relationship Specialty Start Date End Date Chun Porras MD [address] [place] [address] PCP - General Internal Medicine 05/26/14 Lynsey Madison PharmD [address] [place] [address] Pharmacist Internal Medicine 09/26/23 documented as of this encounter
--- OUTSIDE RECORDS SUMMARY | 2025-04-25 06:40 | XMS_ITS | Encounter Summary ---
Author Organization [employer] Address [address] [facility] [address]t [place] [address] Care Team Providers Care Artist'S Model Name Role Phone Chun Porras MD Primary Care Provide r Lynsey Madison PharmD Unavailable [phone] Reason for Visit * Reason Comments Med Refill Encounter Details Date Type Department Care Team (Late st Contact Info) Description 08/22/2023 Refill [facility] [address] [place] [address] Colleen Lou FNP [address] [place] [address] Chronic obstructive pulmonary disease with (acute) exacerbation [...] 10:00 AM EDT Clinical Support [facility] [address] [place] [address] Maritza Mejia RN [address] [place] [address] 07/02/2025 2:30 PM EST Office Visit [facility] OPTOMETRY [address] [place] [address] AvelinoBecka fritz, OD [address] [place] [address] documented as of this encounter Goals Goal [...] documented as of this encounter Care Teams Artist'S Model Relationship Specialty Start Date End Date Chun Porras MD [address] [place] [address] PCP - General Internal Medicine 05/26/14 Lynsey Madison, PharmD [address] [place] [phone] Pharmacist Internal Medicine 09/26/23 documented as of this encounter
--- OUTSIDE RECORDS SUMMARY | 2025-04-25 06:40 | XMS_ITS | Encounter Summary ---
Author Organization [employer] Address [address] [facility] 7t [place] [address] Care Team Providers Care Men'S Basketball Coach Name Role Phone Chun Porras MD Primary Care Provide r Lynsey Madison PharmD Unavailable [phone] Reason for Visit * Reason Comments Med Refill Encounter Details Date Type Department Care Team ([facility] st Contact Info) Description 11/12/2024 Refill [facility] [address] [place] [address] Chun Porras MD [address] [place] [address] Chronic midline low back pain without sciatica [...] Description 05/07/2025 10:00 AM EDT Clinical Support [facility] [address] [place] [address] Maritza Mejia, SANDRA [address] [place] [address] 07/02/2025 2:30 PM EST Office Visit [facility] OPTOMETRY [address] [place] [address] Becka You, OD [address] [place] [address] documented as of this encounter Goals Goal [...] as of this encounter Care Teams Men'S Basketball Coach Relationship Specialty Start Date End Date Chun Porras MD [address] [place] [address] PCP - General Internal Medicine 05/26/14 Lynsey Madison PharmD [address] [place] [address] Pharmacist Internal Medicine 09/26/23 documented as of this encounter
--- OUTSIDE RECORDS SUMMARY | 2025-04-25 06:40 | XMS_ITS | Clinical Summary ---
Author Organization [facility] Facility Address [address] [address] Care Team Providers Care Cashier Clerk Name Role Phone Chun Brennan MD Primary [...] age to complete this topic Insurance [address] [place] [id number] [facility] [address] [place] [id number] [address] [place] [id number] Care Teams Cashier Clerk Relationship Specialty Start Date End Date Chun Brennan MD PCP - General 07/25/20
--- OUTSIDE RECORDS SUMMARY | 2025-04-25 06:40 | XMS_ITS | Clinical Summary ---
Author Organization [employer] Address [address] [place] [address] Care Team Providers Care Landscaping Crew Leader Name Role Phone Chun Porras MD Primary Care Provide r Lynsey Madison PharmD Unavailable [phone] Allergies No known active allergies Medications * [...] without complication, unspecified whether longterm insulin use TEST BLOOD SUGAR TWICE DAILY [...] whether watcher automat long goods insulin use TEST BLOOD SUGAR TWICE DAILY [...] whether watcher automat long goods insulin use TAKE 1 TABLET BY MOUTH EVERY MORNING 90 tablet 1 025 Active naloxone (Narcan) 4 mg/0.1 mL nasal spray Administer 1 spray (4 mg) into affected nostril(s) if needed for opioid reversal. May repeat every 2-3 minutes if needed, alternating nostrils, until medical assistance becomes available. 2 each 2 025 2025 Active ketoconazole (NIZOral) 2 % shampoo APPLY TOPICALLY TO AFFECTED AREA(S) 2 TIMES PER WEEK 120 mL 3 Active metFORMIN XR (Glucophage-XR) 500 MG 24 hr tabletIndications :Type 2 diabetes mellitus without complication, unspecified whether watcher automat long goods insulin use TAKE 2 TABLETS BY MOUTH ONCE DAILY IN THE MORNING and TAKE 1 TABLET BY MOUTH AT BEDTIME 270 tablet 1 Active sildenafil (Viagra) 100 MG tabletIndications :Erectile dysfunction, unspecified erectile dysfunction type TAKE 1 TABLET 1 HOUR BEFORE SEXUAL RELATIONS ONCE DAILY NEEDED. 10 tablet Active traMADol (Ultram) 50 MG tabletIndications :Chronic midline low back pain without sciatica TAKE 1 TABLET BY MOUTH EVERY 8 HOURS NEEDED FOR SEVERE PAIN 84 tablet Active sildenafil (Viagra) 100 MG tabletIndications :Erectile dysfunction, unspecified erectile dysfunction type TAKE 1 TABLET 1 HOUR BEFORE SEXUAL RELATIONS ONCE DAILY NEEDED. 10 tablet 025 2024 Discontinued traMADol (Ultram) 50 MG tabletIndications :Chronic midline low back pain without sciatica TAKE 1 TABLET BY MOUTH EVERY 8 HOURS NEEDED FOR SEVERE PAIN 84 tablet 025 2024 Discontinued Active Problems Problem Noted [...] a second opinion Will refer to our [facility] Derm clinic Intermittent chest pain 03/07/2023 Assessment [...] AM EDT): Patient previously seen at our [facility] by Dr Praveen Wagoner with a [...] EDT): Patient previously seen here at our [facility] by Dr Praveen Wagoner with a [...] EDT): Patient previously seen here at our [facility] by Dr Praveen Wagoner with a [...] by Ирина SWENSON and was referred to Utility Bill Collection Clerk Dr Meyer for Pulmonary clearance. Pt was [...] (Updated 08/22/2023) - Patient transferred medications from [facility] to [facility] and was not pleased with results. He [...] Eye Exam Plan: - Referral sent for [facility] Optometry - Continue with current therapy and [...] i\used to be under the care of [facility], last seen last 06/20/2023 Back in [...] L3-L4. Milder degenerative changes at remaining levels. [facility] gave him a steroid injection in [...] i\used to be under the care of [facility], last seen last 06/20/2023 Back in [...] L3-L4. Milder degenerative changes at remaining levels. [facility] gave him a steroid injection back [...] i\used to be under the care of [facility], last seen last 03/09/2019 Back in [...] i\used to be under the care of [facility], last seen last 03/09/2019 Back in [...] he tells me he was referref by [facility]. I asked him to find out so I can request records [facility] gave him one last Tramadol prescription [...] Chest tubes in the past. [place] [facility] [place] because of spontaneous right pneumothorax. Treated with chest tube, and had bronchoscopy with right parietal pleurectomy, multiple wedge resections of blebs of right upper and middle lobes. kellen 1 antitrypsin was normal Pt was being [place] [facility] he now tells me the patient care technician instructor left and they did not assign him [...] Chest tubes in the past. Admitted [place] [facility] [place]18[place] because of spontaneous right pneumothorax. Treated with chest tube, and had bronchoscopy with right parietal pleurectomy, multiple wedge resections of blebs of right upper and middle lobes. kellen 1 antitrypsin was normal Pt was being followed by pulmonology at [facility], he now tells me the patient care technician instructor left and they did not assign him [...] Chest tubes in the past. Ad[place] [facility] [place] because of spontaneous right pneumothorax. Treated with chest tube, and had bronchoscopy with right parietal pleurectomy, multiple wedge resections of blebs of right upper and middle lobes. kellen 1 antitrypsin was normal Pt was being followed by pulmonology at [facility], he now tells me the patient care technician instructor left and they did not assign him [...] Chest tubes in the past. Ad[place] [facility] [place]18[place] because of spontaneous right pneumothorax. Treated with chest tube, and had bronchoscopy with right parietal pleurectomy, multiple wedge resections of blebs of right upper and middle lobes. kellen 1 antitrypsin was normal Pt was being followed by pulmonology at [facility], he now tells me the patient care technician instructor left and they did not assign him [...] Chest tubes in the past. Ad[place] [facility] [place]18[place] because of spontaneous right pneumothorax. Treated with chest tube, and had bronchoscopy with right parietal pleurectomy, multiple wedge resections of blebs of right upper and middle lobes. kellen 1 antitrypsin was normal Pt was being followed by pulmonology at [facility], he now tells me the patient care technician instructor left and they did not assign him [...] Chest tubes in the past. Ad[place] [facility] [place] because of spontaneous right pneumothorax. Treated with chest tube, and had bronchoscopy with right parietal pleurectomy, multiple wedge resections of blebs of right upper and middle lobes. kellen 1 antitrypsin was normal Pt was being followed by pulmonology at [facility], he now tells me the patient care technician instructor left and they did not assign him [...] with moderate depression. Under the care of [facility]. Currently on a regimen of: Clonidine 0.1 mg po qhs Pt denies Suicidal ideation at the moment. Patient denies any suicidal ideation or thoughts, Patient has crisis numbers and knows to use them if needed. Assessment & Plan (11/20/2022 1:22 PM EDT): Pt with moderate depression. Under the care of [facility]. Currently on a regimen of: Clonidine 0.1 mg po qhs Pt denies Suicidal ideation at the moment. Patient denies any suicidal ideation or thoughts, Patient has crisis numbers and knows to use them if needed. Encounters Date Type Department Care Team Description 04/15/2025 Refill [facility] MEDICINE [address] [place] [address] Chun Porras MD Erectile dysfunction, unspecified erectile dysfunction type 04/14/2025 Refill [facility] MEDICINE [address] [place] [address] Chun Porras MD Erectile dysfunction, unspecified erectile dysfunction type; Chronic midline low back pain without sciatica 04/07/2025 Telephone [facility] MEDICINE [address] [place] [address] Chun Porras MD chart prep 03/25/2025 Refill [facility]ICINE [address] [place] [address] Chun Porras MD Type 2 diabetes mellitus without complication, unspecified whether watcher automat long goods insulin use (CMS/[facility]) 03/17/2025 Telephone [facility] MEDICINE [address] [place] [address] Chun Porras MD Durable Medical Equipment 03/16/2025 Refill [facility]ICINE [address] [place] [address] Chun Porras MD Chronic midline low back pain without sciatica 03/11/2025 Telephone [facility] MEDICINE [address] [place] [address] Chun Porras MD Appointment Confirmation 03/10/2025 Telephone [facility] MEDICINE [address] [place] [address] Chun Porras MD Durable Medical Equipment 03/09/2025 Telephone [facility] MEDICINE [address] [place] [address] Chun Porras MD Error (VOID this visit) 03/08/2025 Telephone [facility] MEDICINE [address] [place] [address] Vicki Abdi, SANDRA Paperwork/Forms 02/20/2025 Refill [facility] MEDICINE [address] [place] [address] Chun Porras MD 02/18/2025 9:15 AM EDT Office Visit [facility] MEDICINE [address] [place] [address] Chun Porras MD Pulmonary emphysema, unspecified emphysema type (CMS/HCC) (Primary Dx); Lower extremity edema; Erectile dysfunction, unspecified erectile dysfunction type; Type 2 diabetes mellitus without complication, without long-term current use of insulin (CMS/HCC); Stress incontinence of urine; Chronic midline low back pain without sciatica 02/18/2025 Telephone [facility] MEDICINE [address] [facility] [place] [address] Chun Porras MD DME CCA 02/18/2025 Travel 02/17/2025 Telephone [facility] MEDICINE [address] [facility] [place] [address] Chun Porras MD Chart Prep 02/16/2025 Refill [facility] MED[facility]INE [address] [facility] [place] [address] Chun Porras MD Erectile dysfunction, unspecified erectile dysfunction type 02/10/2025 Patient Outreach [facility] MEDICINE [address] [facility] [place] [address] Chun Porras MD Pre-visit Planning ([facility] screening was completed on 09/10/2024) 02/05/2025 11:00 AM EDT Clinical Support [facility] MEDICINE [address] [facility] [place] [address] Maritza Mejia RN Chronic midline low back pain without sciatica 02/05/2025 Telephone [facility] MEDICINE [address] [place] [address] Vicki Abdi SKEWER UP Follow-up 02/05/2025 Refill [facility] MEDICINE [address] [place] [address] Chun Porras MD Chronic midline low back pain without sciatica 02/05/2025 Refill [facility] [address] [place] [address] Maritza Mejia, RN 02/05/2025 Travel 02/03/2025 Orders Only GENERIC EXTERNAL DATA DEPARTMENT Provider, Generic External Data 01/31/2025 Refill [facility] MEDICINE [address] [facility] [place] [address] Chun Porras MD Essential hypertension; Type 2 diabetes mellitus without complication, unspecified whether watcher automat long goods insulin use (CMS/HCC) from Last 3 Months Immunizations Immunization Administration [...] Description 05/07/2025 10:00 AM EDT Clinical Support [facility] MEDICINE [address] [place] [address] Maritza Mejia, SANDRA [address] [place] [address] 07/02/2025 2:30 PM EST Office Visit [facility] OPTOMETRY [address] [place] [address] Becka You, OD [address] [place] [address] Health Maintenance Due Date Last Done Comments [...] complication, without long-term current use of insulin ([facility]) POCT GLYCATED HEMOGLOBIN, TOTAL Routine 02/18/2025 9:26 AM EDT Type 2 diabetes mellitus without complication, without long-term current use of insulin ([facility]) POCT GLUCOSE Routine 02/18/2025 9:22 AM EDT Type 2 diabetes mellitus without complication, without long-term current use of insulin ([facility]) POCT LORENA-14 URINE DRUG SCREEN Routine 02/05/2025 10:29 AM EDT Chronic midline low back pain without sciatica XR CHEST 2 VIEWS Routine 02/03/2025 9:15 PM EDT COMPREHENSIVE METABOLIC PANEL Routine 02/03/2025 9:10 PM EDT B TYPE NATRIURETIC PEPTIDE (BNP) Routine 02/03/2025 9:10 PM EDT PROTHROMBIN TIME-INR Routine 02/03/2025 9:10 PM EDT CBC WITH AUTO DIFFERENTIAL Routine 02/03/2025 9:10 PM EDT HEPATITIS C AB W/REFL TO HCV RNA, QN, PCR Routine 12/20/2022 10:56 AM EDT Unexplained night sweats LIPID PANEL, STANDARD Routine 11/09/2022 11:21 AM EDT Pre-op exam HM COLONOSCOPY Routine 07/27/2020 from Last 3 Months or Most Recently Relevant to Health Maintenance Results * Albumin, Random Urine W/Creatinine (02/23/2025 12:59 PM EDT) Creatinine, Urine 72.62 mg/dL [facility] Microalbumin Urine <5.0 mg/L [facility] Microalbum Creatinine Ratio Ur TNP <30 ug/mg cr [facility] Comment:Unable to calculate albumin/creatinine ratio due to lowmicroalbumin or creatinine result. Urine (Urine, Random) 02/23/2025 12:59 PM EDT 02/23/2025 2:17 PM EDT us Chun Mckinley MD LAB URINE ORDERABLES Final Result [facility] [address] [place] [address] [phone] * (ABNORMAL) POCT HGB A1C (02/18/2025 9:26 AM EDT) Hemoglobin A1C 6.3(A) 4.0 - 5.7 % QC Media Lot # [id number] Lot# Expiration Date Blood 02/18/2025 9:26 AM EDT Chun Mckinley MD POINT OF CARE TEST EN TER/EDIT ORDERABLES Final Result * POCT Glucose (02/18/2025 9:22 AM EDT) Glucose Blood, POC 148 60 - 200 mg/dL QC Media Lot # [id number] Lot# Expiration Date 203, Blood Capillary blood specimen / Unknown 02/18/2025 9:22 AM EDT Chun Mckinley MD POINT OF CARE TEST EN TER/EDIT ORDERABLES Final Result * (ABNORMAL) POCT LORENA-14 Urine Drug Screen (02/05/2025 10:29 AM EDT) THC Positive(A) Negative Cocaine Screen, Urine Negative [...] - 02/05/2025 10:29 AM EDT .UTOX cup Lot#[id number] Exp. 04/20/26 Internal Pass Control Chun Mckinley MD POINT OF CARE TEST EN TER/EDIT ORDERABLES Final Result * XR Chest 2 Views (02/03/2025 9:15 PM EDT) Anatomical Region Laterality Modality Chest Radiographic Brenna ging 02/03/2025 9:15 PM EDT Narrative 02/03/2025 9:16 PM EDT [address] [address] XRay Report Signed Patient: Francisco J Romeo MR#: [id number] : 1960 Acct:[id number] Age/Sex: 64 / M ADM Date: 02/03/25 Loc: HO.ED Attending Dr: Ordering Physician: Helena Green NP Date of Service: 02/03/25 Procedure(s): XR chest 2V Accession Number(s): [id number] cc: Chun Michel MD; Helena Green NP [...] in OV> 02/03/252115 DD/ 14 TD/TT: 02/03/252114 Vineyard Worker: Procedure Note Donotuseinterpreter, Image - 02/03/[address] [address] XRay Report Signed Patient: Emma RomeoR#: Nelson [id number] : 8Acct:[id number] Age/Sex: 64 / MADM Date: 02/03/25 Loc: .ED Attending Dr: Ordering Physician: Helena Green NP Date of Service: 02/03/25 Procedure(s): XR chest 2V Accession Number(s): [id number] cc: Chun Michel MD; Helena Green NP [...] in OV> 02/03/252115 DD/ 14 TD/TT: 02/03/252114 Vineyard Worker: [facility] External Provider IMG XR PROCEDURES Edited Result - Final * (ABNORMAL) CBC auto differential (02/03/2025 9:10 PM EDT) White Blood Count 9.5 4.8 - 10.8 X10*3/uL [facility] Red Blood Count 4.65 4.60 - 5.80 X10*6/uL [facility] Hemoglobin 13.8(L) 14.0 - 18.0 g/dl [facility] Hematocrit 39.9(L) 42.0 - 52.0 % [facility] Mean Corpuscular Volume 85.8 80.0 - 98.0 fL [facility] Mean Corpuscular Hemoglobin 29.7 27.0 - 33.0 pg [facility] Mean Corpuscular HGB Conc 34.6 31.0 - 36.0 g/dl [facility] Red Cell Distribution Width 12.9 11.0 - 16.0 % [facility] Platelet Count 240 160 - 400 X10*3/uL [facility] Mean Platelet Volume 9.9 9.4 - 12.4 fL [facility] Neutrophils Percent Auto 71.2 45 - 73 % [facility] Imm Gran Pct Auto 0.2 0.0 - 0.4 % [facility] Lymphocytes Percent Auto 16.2(L) 20 - 40 % [facility] Monocytes Percent Auto 10.2 2 - 11 % [facility] Eosinophils Percent Auto 1.9 0 - 4 % [facility] Basophils Percent Auto 0.3 0 - 2 % [facility] NRBC Pct Auto 0.0 0.0 - 0.2 /100WBC [facility] Neutrophils Absolute Auto 6.8 2.0 - 8.3 x10*3/uL [facility] Imm Gran Abs Auto 0.02 0.00 - 0.03 X10*3/uL [facility] Lymphocytes Absolute Auto 1.5 1.2 - 4.9 X10*3/uL [facility] Monocytes Absolute Auto 1.0 0.1 - 1.2 X10*3/uL [facility] Eosinophils Absolute Auto 0.2 0.0 - 0.4 X10*3/uL [facility] Basophils Absolute Auto 0.0 0.0 - 0.2 X10*3/uL [facility] NRBC Abs Auto 0.000 0.0 - 0.012 X10*3/uL [facility] 02/03/2025 9:10 PM EDT 02/03/2025 9:14 PM EDT us Generic External Data Provider LAB BLOOD ORDERAB LES Final Result [facility] [address] [place] [address] [phone] * Prothrombin Time-INR (02/03/2025 9:10 PM EDT) Prothrombin Time 10.9 10.9 - 12.4 SEC [facility] INTERNATIONAL NORM RATIO 1.0 0.9 - 1.1 [facility] Comment:INTERNATIONAL NORMAL IZED RATIO (INR) [...] ORDERAB LES Final Result Performing Organization Address City/[facility]/ZIP Co de Phone Number [facility] [address] [place] [phone] * B Type Natriuretic Peptide (BNP) (02/03/2025 9:10 PM EDT) [facility] B Type Natriuretic Peptide 44 <100 pg/mL [facility] 02/03/2025 9:10 PM EDT 02/03/2025 9:14 PM EDT Generic External Data Provider LAB BLOOD ORDERAB LES Final Result Performing Organization Address [facility] Co de Phone Number [facility] [address] [place] [phone] * (ABNORMAL) Comprehensive Metabolic Panel (02/03/2025 9:10 PM EDT) [facility] Sodium 138 135 - 145 mmol/L [facility] Potassium 4.0 3.3 - 5.1 mmol/L [facility] Chloride 106 96 - 108 mmol/L [facility] Carbon Dioxide 22 22 - 29 mmol/L [facility] Anion Gap 14 12 - 20 [facility] Urea Nitrogen (BUN) 20(H) 9 - 16 mg/dL [facility] Creatinine, Serum 1.14 0.5 - 1.4 mg/dL [facility] Creatinine Clr Calc Pharmacy 65.8 [facility] Comment:eGFR (calculated fro m the MDRD study equation) and eCrCl(calculated from the Cockcroft-Gault equation) are based ondifferent parameters and may not yield comparable results.If eCrCl result is absurd, please check patient'sheight/weight. Estimated Glomerular Filt Rate >60 [facility] Comment:Chronic Kidney Disea se: Estimated GFR < 60 mL/min/1.10n6Uszshb Kidney Disease: Estimated GFR < 15 mL/min/1.73m2 Glucose 149(H) 60 - 115 mg/dL [facility] Calcium 9.2 8.4 - 10.2 mg/dL [facility] Bilirubin, Total 0.4 0.0 - 1.0 mg/dL [facility] Aspartate Amino Transferase 27 5 - 37 U/L [facility] Alanine Aminotransferase 27 0 - 40 U/L [facility] Total Protein 7.5 6.5 - 8.0 g/dL [facility] Albumin Level 4.6 3.5 - 5.0 g/dL [facility] Alkaline Phosphatase 88 39 - 117 U/L [facility] 02/03/2025 9:10 PM EDT 02/03/2025 9:14 PM EDT us Generic External Data Provider LAB BLOOD ORDERAB LES Final Result [facility] [address] [place] [phone] * Hepatitis C Antibody with Reflex to HCV, RNA, Quantitative, Real-Time PCR (12/20/2022 10:56 AM EDT) Hepatitis C Antibody NON-REACT FABRICIO NON-REACT FABRICIO [facility] [place] [facility] Index 0.13 <1.00 [facility] Comment: HCV antibody was non-reactive. There is no laboratory evidence of HCV infection. In most cases, no further action is required. However, if recent HCV exposure is suspected, a test for HCV RNA (test code 36181) is suggested. For additional information please refer to http://education.[employer]/faq/OKK07s6 (This link is being provided for informational/ educational purposes only.) Blood Venous blood specimen / Unknown 12/20/2022 10:56 AM EDT 12/20/2022 10:56 AM EDT Narrative [facility] - 12/21/2022 5:38 AM EDT FASTING:YES FASTING: YES Chun Mckinley MD LAB BLOOD ORDERABLES Final Result [facility] [address] [facility] [facility], [place] [phone] [facility] [place] [facility] [address] [place] [phone] * Lipid Panel, Standard (11/09/2022 11:21 AM EDT) [facility] Cholesterol, Total 138 <200 mg/dL [facility] [place] [facility] HDL Cholesterol 54 > OR = 40 mg/dL [facility] [place] [facility] Triglycerides 131 <150 mg/dL [facility] [place] [facility] LDL Cholesterol 63 mg/dL (calc) [facility] [place] [facility] Comment: Reference range: <100 Desirable range <100 mg/dL for primary prevention; <70 mg/dL for patients with CHD or diabetic patients with > or = 2 CHD risk factors. LDL-C is now calculated using the Manav-Ng calculation, which is a validated novel method providing better accuracy than the Friedewald equation in the estimation of LDL-C. Manav SS et al. DIONICIO. 2013;310(19): 4224-0553 (http://education.[employer]/faq/RHS694) Chol/HDLC Ratio 2.6 <5.0 (calc) [facility] [place] [facility] Non-HDL Cholesterol 84 <130 mg/dL (calc) [facility] [place] [facility] Comment: For patients with diabetes plus 1 major ASCVD risk factor, treating to a non-HDL-C goal of <100 mg/dL (LDL-C of <70 mg/dL) is considered a therapeutic option. Blood Venous blood specimen / Unknown 11/09/2022 11:21 AM EDT 11/09/2022 11:21 AM EDT Narrative [facility] - 11/10/2022 8:06 AM EDT FASTING:NO FASTING: NO Colleen GUZMÁNP LAB BLOOD ORDERABLES Final Resu lt [facility] [address] [facility] [place] [address] [facility] [address] [place] [phone] * Colonoscopy (07/27/2020) Colonoscopy Normal Normal 07/27/2020 Narrative Blossom Hinkle - 07/27/2020 2:25 PM EST Recommended 5 year follow up ( see GI note 08/17/2020) us Historical Provider HEALTH MAINTENANCE Edited Result - Final from Last 3 Months or Most Recently Relevant to Health Maintenance Insurance [facility] [employer] OPTIONS (O D-SNP) [place] [id number] Care Teams Landscaping Crew Leader Relationship Specialty Start Date End Date Chun Porras MD [address] [place], [place] [phone] PCP - General Internal Medicine 05/26/14 Lynsey Madison PharmD [address] [place], [place] [phone] Pharmacist Internal Medicine 09/26/23
--- OUTSIDE RECORDS SUMMARY | 2025-04-25 06:40 | XMS_ITS | Encounter Summary ---
Author Organization [employer] Address [address] [facility] [address] [place] [address] Care Team Providers Care Ophthalmic Asst Name Role Phone Chun Porras MD Primary Care Provide r Lynsey Madison PharmD Unavailable [phone] Reason for Visit * Reason Comments Med Refill Encounter Details Date Type Department Care Team ([facility] Contact Info) Description 07/20/2022 Refill [facility] MEDICINE [address] [place] [address] Chun Porras MD [address] [place] [address] Chronic midline low back pain without sciatica [...] Description 05/07/2025 10:00 AM EDT Clinical Support [facility] MEDICINE [address] [place] [address] Maritza Mejia, RN [address] [place] [address] 07/02/2025 2:30 PM EST Office Visit [facility] OPTOMETRY [address] [place] [address] Becka You, OD [address] [place] [address] documented as of this encounter Visit Diagnoses Diagnosis Chronic midline low back pain without sciatica documented in this encounter Additional Health Concerns Assessment Noted Time PHQ-9 Depression Total Score: 3 07/06/20 22 11:00 AM EST documented as of this encounter Care Teams Ophthalmic Asst Relationship Specialty Start Date End Date Chun Porras MD [address] [place] [phone] PCP - General Internal Medicine 05/26/14 Lynsey Madison PharmD [address] [place] [phone] Pharmacist Internal Medicine 09/26/23 documented as of this encounter
--- OUTSIDE RECORDS SUMMARY | 2025-04-25 06:40 | XMS_ITS | Encounter Summary ---
Author Organization [employer] Address [address] [facility] 7t [place] [address] Care Team Providers Care Production Editor Name Role Phone Chun Porras MD Primary Care Provide r Lynsey Madison PharmD Unavailable [phone] Reason for Visit * Reason Comments Med Refill Encounter Details Date Type Department Care Team ([facility] st Contact Info) Description 11/14/2023 Refill [facility] MEDICINE [address] [place] [address] Chun Porras MD [address] [place] [address] Chronic midline low back pain without sciatica [...] Description 05/07/2025 10:00 AM EDT Clinical Support [facility] MEDICINE [address] [place] [address] Maritza Mejia RN [address] [place] [address] 07/02/2025 2:30 PM EST Office Visit [facility] OPTOMETRY [address] [place] [address] Becka You, OD [address] [place] [address] documented as of this encounter Goals Goal [...] documented as of this encounter Care Teams Production Editor Relationship Specialty Start Date End Date Chun Porras MD [address] [place] [address] PCP - General Internal Medicine 05/26/14 Lynsey Madison, MichaelD [address] [place] [id number] Pharmacist Internal Medicine 09/26/23 documented as of this encounter
--- OUTSIDE RECORDS SUMMARY | 2025-04-25 06:40 | XMS_ITS | Encounter Summary ---
Author Organization [employer] Address [address] [facility] 7t [place] [address] Care Team Providers Care Video Game Tester Name Role Phone Chun Porras MD Primary Care Provide r Lynsey Madison PharmD Unavailable [phone] Reason for Visit * Reason Comments Med Refill Encounter Details Date Type Department Care Team ([facility] st Contact Info) Description 04/25/2023 Refill [facility] MEDICINE [address] [place] [address] Name, MD Cristhian [address] [place] [address] Essential hypertension Social History Tobacco Use Types [...] Description 05/07/2025 10:00 AM EDT Clinical Support [facility] MEDICINE [address] [place] [address] Maritza Mejia, SANDRA [address] [place] [address] 07/02/2025 2:30 PM EST Office Visit [facility] OPTOMETRY [address] [place] [address] Avelino, Becka, OD [address] [place] [address] documented as of this encounter Visit Diagnoses Diagnosis Essential hypertension Unspecified essential hypertension documented in this encounter Additional Health Concerns Assessment Noted Time PHQ-9 Depression Total Score: 3 07/06/20 22 11:00 AM EST documented as of this encounter Care Teams Video Game Tester Relationship Specialty Start Date End Date Chun Porras MD [address] [place] [address] PCP - General Internal Medicine 05/26/14 Lynsey Madison PharmD [address] [place] [phone] Pharmacist Internal Medicine 09/26/23 documented as of this encounter
--- OUTSIDE RECORDS SUMMARY | 2025-04-25 06:40 | XMS_ITS | Encounter Summary ---
Author Organization [employer] Address 75 [facility] 7t [place] [address] Care Team Providers Care Tool Designer Apprentice Name Role Phone Chun Porras MD Primary Care Provide r Lynsey Madison PharmD Unavailable [phone] Reason for Visit * Reason Comments Med Refill Encounter Details Date Type Department Care Team ([facility] st Contact Info) Description 09/18/2023 Refill [facility] MEDICINE [address] [place] [address] Chun Porras MD [address] [place] [address] Mixed hyperlipidemia Social History Tobacco Use Types [...] Description 05/07/2025 10:00 AM EDT Clinical Support [facility] MEDICINE [address] [place] [address] Maritza Mejia, SANDRA [address] [place] [address] 07/02/2025 2:30 PM EST Office Visit [facility] OPTOMETRY [address] [place] [address] Avelino, Becka, OD [address] [place] [address] documented as of this encounter Goals Goal [...] documented as of this encounter Care Teams Tool Designer Apprentice Relationship Specialty Start Date End Date Chun Porras MD [address] [place] [address] PCP - General Internal Medicine 05/26/14 Lynsey Madison, Sherwin [address] [place] [address] Pharmacist Internal Medicine 09/26/23 documented as of this encounter
--- OUTSIDE RECORDS SUMMARY | 2025-04-25 06:40 | XMS_ITS | Encounter Summary ---
Author Organization [employer] Address 75 [facility] 7t [place] [address] Care Team Providers Care Aluminum Boat Assembly Supervisor Name Role Phone Chun Porras MD Primary Care Provide r Lynsey Madison PharmD Unavailable [phone] Reason for Visit * Reason Comments Med Refill Encounter Details Date Type Department Care Team ([facility] st Contact Info) Description 06/21/2023 Refill [facility] MEDICINE [address] [place] [address] Chun Porras MD 230 [place] [address] Type 2 diabetes mellitus without complication, unspecified whether intermodal dispatcher insulin use ([facility]); Mixed hyperlipidemia Social History Tobacco Use [...] Description 05/07/2025 10:00 AM EDT Clinical Support [facility] MEDICINE [address] [place] [address] Maritza Mejia, RN [address] [place] [address] 07/02/2025 2:30 PM EST Office Visit [facility] OPTOMETRY [address] [place] [address] Becka You, OD [address] [place] [address] documented as of this encounter Visit Diagnoses Diagnosis Type 2 diabetes mellitus without complication, unspecified whether intermodal dispatcher insulin use Mixed hyperlipidemia documented in this encounter Additional Health Concerns Assessment Noted Time PHQ-9 Depression Total Score: 3 07/06/20 22 11:00 AM EST documented as of this encounter Care Teams Aluminum Boat Assembly Supervisor Relationship Specialty Start Date End Date Chun Porras MD [address] [place] [address] PCP - General Internal Medicine 05/26/14 Lynsey Madison PharmD [address] [place] [phone] Pharmacist Internal Medicine 09/26/23 documented as of this encounter
--- OUTSIDE RECORDS SUMMARY | 2025-04-25 06:40 | XMS_ITS | Encounter Summary ---
Author Organization [employer] Address [address] [facility] 7t [place] [address] Care Team Providers Care Medical Malpractice Paralegal Name Role Phone Chun Porras MD Primary Care Provide r Lynsey Madison PharmD Unavailable [phone] Reason for Visit * Reason Comments Med Refill Encounter Details Date Type Department Care Team ([facility] st Contact Info) Description 09/29/2023 Refill [facility] MEDICINE [address] [place] [address] Chun Porras MD [address] [place] [address] Type 2 diabetes mellitus without complication, unspecified whether buttermaker helper insulin use ([facility]) Social History Tobacco Use Types Packs/Day Years [...] Clinical Support [facility] MEDICINE [address] [place] [address] Maritza Mejia RN [address] [place] [address] 07/02/2025 2:30 PM EST Office Visit [facility] OPTOMETRY [address] [place] [address] Avelino, Becka, OD [address] [place] [address] documented as of this encounter Goals Goal Patient Goal Type Associated Problems Recent Progress Patient-Stated? Author Blood Pressure < 140/90 Blood Pressure Essential hypertension 106/68(2024 9:16 AM EDT) No Lynsey Madison, Sherwin documented as of this encounter Visit Diagnoses Diagnosis Type 2 diabetes mellitus without complication, unspecified whether buttermaker helper insulin use documented in this encounter Additional Health Concerns Assessment Noted Time PHQ-9 Depression Total Score: 3 07/06/20 22 11:00 AM EST documented as of this encounter Care Teams Medical Malpractice Paralegal Relationship Specialty Start Date End Date Chun Porras MD [address] [place] [address] PCP - General Internal Medicine 05/26/14 Lynsey Madison, PharmD [address] [place] [address] Pharmacist Internal Medicine 09/26/23 documented as of this encounter
--- OUTSIDE RECORDS SUMMARY | 2025-04-25 06:40 | XMS_ITS | Patient Health Record ---
Author Organization [facility] enter Address [address] [place] [address] Care Team Providers Care Astronautical Engineer Name Role Phone Monique Reyes Primary [...] Date Coverage End Date [employer] [address] [place], [place] [id number] Francisco J Romeo Self - patient is the insured
--- NOTE | 2025-04-25 06:41 | ED.CHESTPAIN ---
HPI - Chest Pain General Chief Complaint: Chest Pain Stated Complaint: chest pain Time Seen by Provider: 04/25/25 06:41 Source: patient and skilled nursing case manager Mode of arrival: ambulatory Limitations: no limitations History of Present Illness ED Provider: HPI narrative: 64-year-old male he is reporting midsternal chest pain nonradiating not associated with nausea or vomiting or diaphoresis, he states he has been diagnosed with inflammation in the past , no pleurisy reported no hemoptysis no fevers chills or productive cough. Pain started 02:00 in the morning. Related Data Home Medications ?Medication ?Instructions ?Recorded ?Confirmed aspirin 81 mg tablet,delayed 1 tab PO QAM 07/25/20 01/20/25 release atorvastatin 40 mg tablet 1 tab PO BEDTIME 07/25/20 01/20/25 duloxetine 60 mg capsule,delayed 1 cap PO QAM 03/28/21 01/20/25 release amlodipine 10 mg tablet 1 tab PO QAM 09/08/21 01/20/25 metoprolol tartrate 50 mg tablet 1 tab PO 09/08/21 01/20/25 nebulizers 10/26/22 01/20/25 tramadol 50 mg tablet 50 mg PO TID PRN 08/16/23 01/20/25 metformin 500 mg tablet,extended 500 mg PO BID 12/24/23 01/20/25 release 24 hr blood sugar diagnostic (FreeStyle #10 ea 02/06/24 01/20/25 Lite Strips) lancets 33 gauge (TRUEplus Lancets) #100 ea 02/06/24 01/20/25 ramelteon 8 mg tablet 8 mg PO DAILY 02/21/24 01/20/25 gabapentin 300 mg capsule mg PO 05/06/24 01/20/25 Previous Rx's ?Medication ?Instructions ?Recorded ipratropium 0.5 mg-albuterol 3 mg 3 ml inhalation Q4H PRN shortness 06/28/22 (2.5 mg base)/3 mL nebulization of breath or wheezing #90 mL soln lidocaine 5 % topical patch 1 patch topical DAILY #15 ea 08/25/22 (Lidoderm) dicyclomine 20 mg tablet 20 mg PO QID 30 days #120 tabs 05/06/24 albuterol sulfate 2.5 mg/3 mL 2.5 mg (3 mL) inhalation Q4H PRN 10/26/24 (0.083 %) solution for nebulization shortness of breath or wheezing 30 days #360 mL albuterol sulfate 90 mcg/actuation 2 puff PO Q4-6H PRN Shortness Of 11/20/24 aerosol inhaler Breath Or Wheezing 30 days #1 ea cetirizine 10 mg tablet 20 mg (2 x 10 mg) PO DAILY PRN 12/05/24 allergy symptoms #30 tabs hydrocortisone 1 % topical cream 1 appl topical BID PRN itching 12/05/24 #28.35 grams furosemide 20 mg tablet (Lasix) 20 mg PO DAILY #4 tabs 02/04/25 terazosin 5 mg capsule 5 mg PO BEDTIME 90 days #90 caps 03/01/25 montelukast 10 mg tablet 10 mg PO BEDTIME #30 tabs 03/19/25 simethicone 180 mg capsule (Gas 180 mg PO QID #120 ea 04/14/25 Relief (simethicone)) omeprazole 20 mg capsule,delayed 20 mg PO DAILY 30 days #30 caps 04/15/25 release fluticasone fur. 200 mcg-umeclid 1 inh inhalation DAILY 30 days #60 04/21/25 62.5 mcg-vilant 25 mcg ea inhalat.powder (Trelegy Ellipta) Allergies Allergy/AdvReac Type Severity Reaction Status Date / Time No Known Allergies (No Known Allergy Verified 04/25/25 06:29 Allergies*) Review of Systems Constitutional: Constitutional: Reports as per [facility] Past Medical History Medical History H. pylori duodenitis New abnormality on chest x-ray REJI (acute kidney injury) Urgency of micturition Urinary hesitancy Nocturia more than twice per night Benign prostatic hyperplasia with weak urinary stream Epidermal inclusion cyst Atelectasis Fecal incontinence Flank lipoma Asthma-COPD overlap syndrome IBS (irritable bowel syndrome) Umbilical hernia Diabetes Arthritis Back pain GERD (gastroesophageal reflux disease) Bipolar 1 disorder Anxiety Depression Elevated cholesterol Tension pneumothorax, spontaneous Hypertension Asthma Surgical History History of esophagogastroduodenoscopy (EGD) S/P excision of lipoma (02/20/23) History of excision of mass (12/13/22) Hx of colonoscopy Hx of tracheostomy History of lung surgery Hx of hernia repair Family History Family History Mother Stomach cancer Brother Prostate cancer Brother Prostate cancer Social History Social History Household Members: None Housing: Apartment Do you presently have visiting nurse or other home services: No Alcohol intake: current Alcohol intake frequency: holidays/special occasions only Alcohol type: beer Patient Tobacco Use Status: Never used Tobacco Smoked in Last 30 Days: No e-Cigarette/Vaping Use: Never Used Second Hand Smoke Exposure: No Substance Use Type: Marijuana Last Used Substance: Weeks (ago) Advance Directives: Yes Advance Directives on File: Yes Advance Directives Date on File: 03/28/21 Do you have a plan to hurt others: No Plan service: No Current occupational status: unemployed Physical Exam Vital Signs: Vital Signs: Last Vital Signs Temp 97.4 F 04/25/25 06:23 Pulse 100 04/25/25 06:23 Resp 18 04/25/25 06:23 BP 118/75 04/25/25 06:23 Pulse Ox 97 04/25/25 06:23 O2 Del Method Room Air 04/25/25 06:23 BMI result Body Mass Index 29.5 Const: Other: General: ?Appears of stated age ? ?PERRLA, EOMI, MMM, ? Neck: Supple, no LAD ? ?CV: RRR, no obvious murmurs appreciated, midsternal tenderness along the subxiphoid process, radial pulses +2 bilaterally ? ?Resp: ?No wheezing rales rhonchi no stridor moving air well ? Abd: ?Bowel sounds are present, no tenderness no rebound no rigidity ? ?MSK: FROM, strength 5/5 all extremities ? Skin: Warm, dry, intact, no lower extremity edema ? ?Neuro: ?Alert and oriented x3, moving upper and lower extremities symmetrically, no obvious facial asymmetry noted, cranial nerves 2-12 intact Medical Decision Making Medical Decision Making MDM Narrative: 7:10 AM 04/25/2025 (Dr. John Jung): No hypoxia no pleurisy to suspect PE, chest x-ray to evaluate for mediastinal widening, pneumothorax, infectious etiology, based on physical examination costochondritis is high in differential however given his age we will workup for ACS and he has been seen multiple times in the past for chest pain. At the time of my evaluation he is hemodynamically stable, pain is mostly reproducible on exam, as I am not able to PERC him out however I will obtain ECG. Differential Diagnosis Differential Diagnoses: The differential diagnosis associated with the presentation includes (ACS, pneumothorax, aortic dissection, PE, Boerhaave syndrome) Admission/Observation Consideration of admission/observation: Escalation of care including admission/observation considered Lab Data MDM Lab Attestation statement: I reviewed the patient's lab results. 04/25/25 06:31 04/25/25 06:31 Labs: Lab Results 04/25/25 04/25/25 Range/Units 06:31 07:25 WBC 11.4 H (4.8-10.8) X10*3/uL RBC 4.81 (4.60-5.80) X10*6/uL Hgb 14.0 (14.0-18.0) g/dl Hct 41.1 L (42.0-52.0) % MCV 85.4 (80.0-98.0) fL MCH 29.1 (27.0-33.0) pg MCHC 34.1 (31.0-36.0) g/dl RDW 13.0 (11.0-16.0) % Plt Count 279 (160-400) X10*3/uL MPV 10.0 (9.4-12.4) fL Immature Gran % (Auto) 0.3 (0.0-0.4) % Neut % (Auto) 60.3 (45-73) % Lymph % (Auto) 24.0 (20-40) % [place] % (Auto) 12.2 H (2-11) % Eos % (Auto) 2.8 (0-4) % Baso % (Auto) 0.4 (0-2) % Lymph # (Auto) 2.7 (1.2-4.9) X10*3/uL [place] # (Auto) 1.4 H (0.1-1.2) X10*3/uL Eos # (Auto) 0.3 (0.0-0.4) X10*3/uL Baso # (Auto) 0.1 (0.0-0.2) X10*3/uL Abs Immat Gran (auto) 0.03 (0.00-0.03) X10*3/uL Absolute Neuts (auto) 6.8 (2.0-8.3) x10*3/uL Absolute Nucleated RBC 0.000 (0.0-0.012) X10*3/uL Nucleated RBC % (auto) 0.0 (0.0-0.2) /100WBC D-Dimer High Sensitivty 151 NG/ML Sodium 140 (135-145) mmol/L Potassium 3.4 (3.3-5.1) mmol/L Chloride 106 (96-108) mmol/L Carbon Dioxide 22 (22-29) mmol/L Anion Gap 15 (12-20) BUN 22 H (9-16) mg/dL Creatinine 0.98 (0.5-1.4) mg/dL Estim Creat Clear Calc 82.5 Estimated GFR > 60 Random Glucose 116 H (60-115) mg/dL Calcium 9.4 (8.4-10.2) mg/dL Total Bilirubin 0.4 (0.0-1.0) mg/dL AST 22 (5-37) U/L ALT 24 (0-40) U/L Alkaline Phosphatase 87 (39-117) U/L Troponin I High Sens 2.7 (<3.5-35.0) ng/L Total Protein 7.3 (6.5-8.0) g/dL Albumin 4.6 (3.5-5.0) g/dL Independent Interpretation I performed an independent interpretation of an: EKG (107 beats per minute sinus tachycardia, otherwise normal ECG without dysrhythmia, AV estuardo blocks or ST-T changes to suspect underlying ACS, my independent interpretation) and Plain X-Ray (Chronic atelectatic changes very similar to prior chest x-rays) Radiology Impression Discussion of test interpretation with radiology: I have reviewed the radiologist's reading. Chronic Conditions Patient?s care impacted by: Diabetes and Hypertension Discharge Plan Discharge Clinical Impression: Chest pain, precordial Patient Disposition: Home, Self-Care Instructions: Chest Pain (ED) Additional Instructions: Evaluated with midsternal chest pain, I did want to make sure your heart and lungs are okay, I will obtain special blood work to evaluate for any blood clots and whether is any stress on your heart, and your workup has been reassuring You can take Tylenol or ibuprofen as needed for pain follow up with the PCP Any other issues or concerns come back to the ED Prescriptions: No Action albuterol sulfate 2.5 mg /3 mL (0.083 %) solution for nebulization 2.5 mg inhalation Q4H PRN (Reason: shortness of breath or wheezing) 30 Days Qty: 360 7RF albuterol sulfate 90 mcg/actuation HFA aerosol inhaler 2 puff PO Q4-6H PRN (Reason: Shortness Of Breath Or Wheezing) 30 Days Qty: 1 2RF terazosin 5 mg capsule 5 mg PO BEDTIME 90 Days Qty: 90 3RF montelukast 10 mg tablet 10 mg PO BEDTIME Qty: 30 4RF simethicone [Gas Relief (simethicone)] 180 mg capsule 180 mg PO QID Qty: 120 6RF Trelegy Ellipta 200-62.5-25 mcg blister with device 1 inh inhalation DAILY 30 Days Qty: 60 7RF atorvastatin 40 mg tablet 1 tab PO BEDTIME aspirin 81 mg tablet,delayed release (DR/EC) 1 tab PO QAM duloxetine 60 mg capsule,delayed release(DR/EC) 1 cap PO QAM amlodipine 10 mg tablet 1 tab PO QAM metoprolol tartrate 50 mg tablet 1 tab PO ipratropium-albuterol 0.5 mg-3 mg(2.5 mg base)/3 mL solution for nebulization 3 ml inhalation Q4H PRN (Reason: shortness of breath or wheezing) Qty: 90 0RF Rx Instructions: until breathing returns to target peak flow/parameters lidocaine [Lidoderm] 5 % adhesive patch,medicated 1 patch topical DAILY Qty: 15 0RF Rx Instructions: leave on most painful area for up to 12 hrs furosemide [Lasix] 20 mg tablet 20 mg PO DAILY Qty: 4 0RF cetirizine 10 mg tablet 20 mg PO DAILY PRN (Reason: allergy symptoms) Qty: 30 0RF hydrocortisone 1 % cream 1 appl topical BID PRN (Reason: itching) Qty: 28.35 0RF Rx Instructions: apply to face (DME) nebulizers Misc See Rx Instructions .Route Rx Instructions: As directed metformin 500 mg tablet extended release 24 hr 500 mg PO BID Rx Instructions: 1000 mg in the morning and 500 mg at night ramelteon 8 mg tablet 8 mg PO DAILY gabapentin 300 mg capsule PO dicyclomine 20 mg tablet 20 mg PO QID 30 Days Qty: 120 6RF tramadol 50 mg tablet 50 mg PO TID PRN (DME) FreeStyle Lite Strips Strip See Rx Instructions .ROUTE BID Qty: 10 Rx Instructions: As directed (DME) lancets [TRUEplus Lancets] 33 gauge misc See Rx Instructions .ROUTE .MEDSUPPLY Qty: 100 Rx Instructions: As directed omeprazole 20 mg capsule,delayed release(DR/EC) 20 mg PO DAILY 30 Days Qty: 30 6RF Print Language: Burkinan
[2025-04-25 07:11] LABS: MANUAL DIFF FLAG NO
[2025-04-25 07:24] LABS: Hematocrit 41.1 % (42.0-52.0); Hemoglobin 14.0 g/dl (14.0-18.0); Imm Gran Abs Auto 0.03 X10*3/uL (0.00-0.03); Imm Gran Pct Auto 0.3 % (0.0-0.4); Lymphocytes Absolute Auto 2.7 X10*3/uL (1.2-4.9); Mean Corpuscular HGB Conc 34.1 g/dl (31.0-36.0); Mean Corpuscular Hemoglobin 29.1 pg (27.0-33.0); Mean Corpuscular Volume 85.4 fL (80.0-98.0); NRBC Abs Auto 0.000 X10*3/uL (0.0-0.012); NRBC Pct Auto 0.0 /100WBC (0.0-0.2); Platelet Count 279 X10*3/uL (160-400); Red Blood Count 4.81 X10*6/uL (4.60-5.80); White Blood Count 11.4 X10*3/uL (4.8-10.8)
[2025-04-25 07:29] LABS: Alanine Aminotransferase 24 U/L (0-40); Albumin Level 4.6 g/dL (3.5-5.0); Alkaline Phosphatase 87 U/L (39-117); Anion Gap 15 (12-20); Aspartate Amino Transferase 22 U/L (5-37); Blood Urea Nitrogen 22 mg/dL (9-16); Calcium 9.4 mg/dL (8.4-10.2); Carbon Dioxide 22 mmol/L (22-29); Chloride 106 mmol/L (96-108); Creatinine Clr Calc Pharmacy 82.5; Estimated Glomerular Filt Rate > 60; Potassium 3.4 mmol/L (3.3-5.1); Sodium 140 mmol/L (135-145); Total Protein 7.3 g/dL (6.5-8.0)
[2025-04-25 07:36] LABS: Troponin-I High Sensitivity 2.7 ng/L (<3.5-35.0)
[2025-04-25 07:40] LABS: D Dimer High Sensitivity 151 NG/ML
[2025-04-25 08:16] VITALS: BP 94/62; PULSE 89; RESP 15; TEMP 36.6; O2SAT 96
[2025-04-25 08:21] VITALS: BP 94/62; PULSE 89; RESP 15; TEMP 36.6; O2SAT 96
== END 2025-04-25 08:21 | disposition home or self-care (01) ==
PROVIDERS: Emergency Provider Emergency Medicine; PCP Internal Medicine
DX: R07.2 Precordial pain (principal); R07.9 Chest pain, unspecified; R05.9 Cough, unspecified
CPT/HCPCS: 36415; 71046; 80053; 84484; 85025; 85379; 93005; 96374; 99284; 99285; J1885

== ENCOUNTER → 2025-04-25 06:21 | Outpatient (BNV) | payer OTHER, SELFPAY | PROVIDERS: Emergency Provider Emergency Medicine; PCP Internal Medicine; Visit Provider Internal Medicine Cardiovascular Disease | DX: R00.0 Tachycardia, unspecified (principal) | CPT/HCPCS: 93010 ==

== ENCOUNTER → 2025-04-25 07:05 | Outpatient (BNV) | payer OTHER, SELFPAY | PROVIDERS: Emergency Provider Emergency Medicine; PCP Internal Medicine; Visit Provider Radiology Diagnostic Radiology | DX: J98.11 Atelectasis (principal); J98.4 Other disorders of lung | CPT/HCPCS: 71046 ==

== ENCOUNTER 2025-05-24 12:22 | Outpatient (AMB) | payer OTHER, SELFPAY ==
[2025-05-24 12:53] VITALS: BP 108/62; PULSE 67; BMI 26.4
--- NOTE | 2025-05-24 12:53 | MHC.OFFVIS ---
Vital Signs 05/24/25 12:53 Height 5 ft 9 in Weight 179 lb 0.246 oz BMI 26.4 BP 108/62 Blood Pressure Location Lt brachial Position Sitting Pulse 67 Pulse Source Pulse Oximeter Intake Visit Reasons: 6 mth f/up Car Repair Supervisor Required: Yes Car Repair Supervisor Language: Legal Contracts Specialist Name: pravin lopez [phone] Allergies No Known Allergies (No Known Allergies*) Allergy (Verified 05/24/25 12:56) Medication List - Last Reconciled 05/24/25 by AMY Velazquez albuterol sulfate 2.5 mg (3 mL) inhalation Q4H PRN 30 days albuterol sulfate 90 mcg/actuation 2 puffs PO Q4-6H PRN 30 days amlodipine 1 tab PO QAM aspirin 1 tab PO QAM atorvastatin 1 tab PO BEDTIME blood sugar diagnostic (FreeStyle Lite Strips) As directed cetirizine 20 mg (2 x 10 mg) PO DAILY PRN dicyclomine 20 mg PO QID 30 days doxepin 10 mg PO BEDTIME duloxetine 1 cap PO QAM ruwobtryfis-gsugwvlqi-ppmgjcuy 200-62.5-25 mcg (Trelegy Ellipta) 1 inh inhalation DAILY 30 days furosemide (Lasix) 20 mg PO DAILY gabapentin mg PO hydrocortisone 1% 1 appl topical BID PRN ipratropium-albuterol 0.5 mg-3 mg(2.5 mg base)/3 mL 3 mL inhalation Q4H PRN lancets (TRUEplus Lancets) As directed lidocaine 5% (Lidoderm) 1 patch topical DAILY metformin ER 500 mg PO BID metoprolol tartrate 1 tab PO montelukast 10 mg PO BEDTIME nebulizers As directed omeprazole 20 mg PO DAILY 30 days omeprazole 40 mg PO QAM ramelteon 8 mg PO DAILY sildenafil (Viagra) 100 mg PO DAILY PRN simethicone (Gas Relief (simethicone)) 180 mg PO QID terazosin 5 mg PO BEDTIME 90 days tramadol 50 mg PO TID PRN HPI HPI 6 mth f/up: Details: Francisco J is a 65-year-old male with past medical history of hypertension, hyperlipidemia, diabetes, COPD, minimal coronary artery disease, RV dilation who presents for follow-up. Today he reports he was recently seen in the emergency room for discomfort in his mid chest and along his left side. He was told it was not his heart. He tells me the area was tender to touch. He has not had any recurrent chest discomfort since. He has no concerning shortness of breath, no PND, orthopnea or edema. No lightheadedness, presyncope, syncope. He has chronic hip pain and ambulates with a cane or uses a scooter. Mostly sedentary for this reason. He reports compliance with his medications. [facility] Medical History (Updated 05/24/25 @ 14:18 by Moni Gonzalez, GREG-C) H. pylori duodenitis New abnormality on chest x-ray REJI (acute kidney injury) Urgency of micturition Urinary hesitancy Nocturia more than twice per night Benign prostatic hyperplasia with weak urinary stream Epidermal inclusion cyst Atelectasis Fecal incontinence Flank lipoma Asthma-COPD overlap syndrome IBS (irritable bowel syndrome) Umbilical hernia Diabetes Arthritis Back pain GERD (gastroesophageal reflux disease) Bipolar 1 disorder Anxiety Depression Elevated cholesterol Tension pneumothorax, spontaneous Hypertension Asthma Surgical History History of esophagogastroduodenoscopy (EGD) S/P excision of lipoma (02/20/23) History of excision of mass (12/13/22) Hx of colonoscopy Hx of tracheostomy History of lung surgery Hx of hernia repair Family History Mother Stomach cancer Brother Prostate cancer Brother Prostate cancer Social History Household Members: None Housing: Apartment Do you presently have visiting nurse or other home services: No Alcohol intake: current Alcohol intake frequency: holidays/special occasions only Alcohol type: beer Patient Tobacco Use Status: Never used Tobacco e-Cigarette/Vaping Use: Never Used Second Hand Smoke Exposure: No Substance Use Type: Marijuana Advance Directives Date on File: 03/28/21 service: No Current occupational status: unemployed Review of Systems Const All systems reviewed & are unremarkable except as noted in HPI and below ENT Denies dizziness Card Denies chest pain, Denies chest pain at rest, Denies chest pain with activity, Denies rapid heart rate, Denies pedal edema, Denies edema, Denies leg edema, Denies lightheadedness, Denies palpitations, Denies dyspnea, Denies dyspnea on exertion and Denies orthopnea Resp Denies cough, Denies dyspnea and Denies dyspnea on exertion GI Denies hematochezia and Denies change in stool character Musc Denies abnormal gait, Denies limited range of motion, Denies muscle cramps, Denies muscle weakness, Denies numbness, Denies radiating pain into limb, Denies stiffness and Denies tingling Neuro Denies abnormal gait, Denies dizziness, Denies numbness and Denies tingling Endo Denies palpitations Physical Exam Vital Signs: Last Vital Signs Pulse 67 05/24/25 12:53 BP 108/62 05/24/25 12:53 BMI result Body Mass Index 26.4 Const General: cooperative, healthy appearing, comfortable and no acute distress Orientation/consciousness: patient oriented x3 Eyes Sclerae: sclerae normal Neck Neck: Yes normal visual inspection and Yes no JVD Carotids: normal carotid upstroke Chest Chest palpation & inspection: normal inspection of the chest Resp Effort & Inspection: normal respiratory effort Auscultation: clear to auscultation bilaterally, no crackles, no rales, no rhonchi and no wheezes Cardio Jugular venous distension: no JVD Rate: regular rate Rhythm: regular rhythm Heart sounds: S1 normal heart sound present, S2 normal heart sound present, no gallops, no murmurs and no rubs Peripheral pulses: Peripheral pulses 2+ throughout Skin General skin exam: no rashes or lesions noted Neuro General: patient oriented x3 Extrem General: Yes normal to inspection, No no pedal edema and No calf tenderness Psych Appearance: grossly normal Mental Status: mental status grossly normal Speech and movement: Normal speech and movement present Assessment & Plan Assessment & Plan (1) Chest pain: Code(s): R07.9 - Chest pain, unspecified Category: Medical Qualifiers: Chest pain type: unspecified Qualified Code(s): R07.9 - Chest pain, unspecified Plan: ER evaluation for atypical chest discomfort on 04/25/2025. He ruled out for ACS. He tells me the area has been tender to touch. Most likely musculoskeletal in nature. No recurrent symptoms since that time. No further testing needed. Continue with risk factor modification. Continue aspirin, atorvastatin with ideal LDL goal less than 70 in patient with diabetes, continue amlodipine. (2) Hypertension: Code(s): I10 - Essential (primary) hypertension Category: Medical Plan: Blood pressure goal less than 130/80. Well controlled at this time. Continue amlodipine and Lasix. (3) Right ventricular dilation: Code(s): I51.7 - Cardiomegaly Category: Medical Plan: Echocardiogram from 09/08/2024 showed EF 55-60%, normal valves, mild increase in the RV size. He does have asthma/COPD overlap syndrome and breathing is currently controlled. No signs of heart failure on exam. No med changes made. Plan Time spent on chart review, documentation, interview and assessment Coding Level of Care Code Est Pt Level 4 (47393) Complex EM visit Add On G2211 Diagnoses Chest pain, unspecified type R07.9 Chest pain type: unspecified Hypertension I10 Right ventricular dilation I51.7 Time Spent (min) 28
--- OUTSIDE RECORDS SUMMARY | 2025-05-24 14:36 | XMS_ITS | Encounter Summary ---
Author Organization [employer] Address [address] [facility] 7t [place] [address] Care Team Providers Care Payroll Services Analyst Name Role Phone Chun Porras MD Primary Care Provide r Lynsey Madison PharmD Unavailable [phone] Reason for Visit * Reason Comments Med Refill Encounter Details Date Type Department Care Team ([facility] st Contact Info) Description 04/28/2024 Refill [facility] MEDICINE [address] [place] [address] Lynsey Madison, PharmD 230 [place] [address] Type 2 diabetes mellitus without complication, unspecified whether [place] [facility] insulin use ([facility]) Social History Tobacco Use Types Packs/Day [...] Care Team (Late st Contact Info) Description 07/02/2025 2:30 PM EST Office Visit [facility] OPTOMETRY [address] [place] [address] Becka You, OD [address] [place] [address] 08/13/2025 10:30 AM EST Clinical Support [facility] MEDICINE [address] [place] [address] Maritza Mejia, SANDRA [address] [place] [address] documented as of this encounter Goals Goal Patient Goal Type Associated Problems Recent Progress Patient-Stated? Author Blood Pressure < 140/90 Blood Pressure Essential hypertension 106/68(2024 9:16 AM EDT) No Lynsey Madison, MichaelD documented as of this encounter Visit Diagnoses Diagnosis Type 2 diabetes mellitus without complication, unspecified whether [place] [facility] insulin use documented in this encounter Additional Health Concerns Assessment Noted Time PHQ-9 Depression Total Score: 1 11/12/19 24 11:09 AM EDT documented as of this encounter Care Teams Payroll Services Analyst Relationship Specialty Start Date End Date Chun Porras MD 230 [place] [address] PCP - General Internal Medicine 05/26/14 Lynsey Madison, Sherwin [address] [place] [address] Pharmacist Internal Medicine 09/26/23 documented as of this encounter
--- OUTSIDE RECORDS SUMMARY | 2025-05-24 14:36 | XMS_ITS | Clinical Summary ---
Author Organization [facility] Address [address] [address] Care Team Providers Care Marine Architect Name Role Phone Chun Brennan MD Primary [...] age to complete this topic Insurance [address] [place] [id number] [facility] [address] [place] [id number] [address] [place] [id number] Care Teams Marine Architect Relationship Specialty Start Date End Date Chun Brennan MD PCP - General 07/25/20
--- OUTSIDE RECORDS SUMMARY | 2025-05-24 14:36 | XMS_ITS | Encounter Summary ---
Author Organization [employer] Address [address] [facility] 7t [place] [address] Care Team Providers Care Cyber Reverse Engineer Name Role Phone Chun Porras MD Primary Care Provide r Lynsey Madison PharmD Unavailable [phone] Reason for Visit * Reason Comments Med Refill Encounter Details Date Type Department Care Team ([facility] st Contact Info) Description 02/17/2024 Refill [facility] [address] [place], [place] [id number] Chun Porras MD 230 [place] [address] Chronic midline low back pain without sciatica [...] Description 07/02/2025 2:30 PM EST Office Visit [facility] OPTOMETRY [address] [place] [address] Becka You, OD 230 [place] [address] 08/13/2025 10:30 AM EST Clinical Support [facility] MEDICINE 230 [place] [address] Maritza Mejia, RN [address] [place] [address] documented as of this encounter Goals Goal [...] documented as of this encounter Care Teams Cyber Reverse Engineer Relationship Specialty Start Date End Date Chun Porras MD [address] [place] [address] PCP - General Internal Medicine 05/26/14 Lynsey Madison, PharmD [address] [place] [address] Pharmacist Internal Medicine 09/26/23 documented as of this encounter
--- OUTSIDE RECORDS SUMMARY | 2025-05-24 14:37 | XMS_ITS | Encounter Summary ---
Author Organization [employer] Address [address] [facility] 7t [place] [address] Care Team Providers Care Storm Chaser Name Role Phone Chun Porras MD Primary Care Provide r Lynsey Madsion PharmD Unavailable [phone] Reason for Visit * Reason Comments Med Refill Encounter Details Date Type Department Care Team ([facility] st Contact Info) Description 04/21/2023 Refill [facility] MEDICINE [address] [place] [address] Name, MD Cristhian 230 [place] [address] Essential hypertension Social History Tobacco Use Types [...] Description 07/02/2025 2:30 PM EST Office Visit [facility] OPTOMETRY [address] [place] [address] Becka You, OD 230 [place] [address] 08/13/2025 10:30 AM EST Clinical Support [facility] MEDICINE 230 [place] [address] Maritza Mejia, SANDRA 505 [place] [address] documented as of this encounter Visit Diagnoses Diagnosis Essential hypertension Unspecified essential hypertension documented in this encounter Additional Health Concerns Assessment Noted Time PHQ-9 Depression Total Score: 3 07/06/20 22 11:00 AM EST documented as of this encounter Care Teams Storm Chaser Relationship Specialty Start Date End Date Chun Porras MD [address] [place] [address] PCP - General Internal Medicine 05/26/14 Lynsey Madison PharmD [address] [place] [address] Pharmacist Internal Medicine 09/26/23 documented as of this encounter
--- OUTSIDE RECORDS SUMMARY | 2025-05-24 14:37 | XMS_ITS | Encounter Summary ---
Author Organization [employer] Address [address] [facility] 7t [place] [address] Care Team Providers Care Fruit Bar Maker Name Role Phone Chun Porras MD Primary Care Provide r Lynsey Madison PharmD Unavailable [phone] Reason for Visit * Reason Comments Med Refill Encounter Details Date Type Department Care Team (Late st Contact Info) Description 08/22/2023 Refill [facility] MEDICINE [address] [place] [address] Colleen Lou FNP [address] [place] [address] Chronic obstructive pulmonary disease with (acute) exacerbation [...] Description 07/02/2025 2:30 PM EST Office Visit [facility] OPTOMETRY [address] [place] [address] Avelino, Becka, OD [address] [place] [address] 08/13/2025 10:30 AM EST Clinical Support [facility] MEDICINE [address] [place] [address] Maritza Mejia, SANDRA [address] [place] [address] documented as of this encounter Goals Goal [...] as of this encounter Care Teams Fruit Bar Maker Relationship Specialty Start Date End Date Chun Porras MD [address] [place] [address] PCP - General Internal Medicine 05/26/14 Lynsey Madison, PharmD [address] [place] [address] Pharmacist Internal Medicine 09/26/23 documented as of this encounter
--- OUTSIDE RECORDS SUMMARY | 2025-05-24 14:37 | XMS_ITS | Encounter Summary ---
Author Organization [employer] Address [address] [facility] 7t [place] [address] Care Team Providers Care Foam Charger Name Role Phone Chun Porras MD Primary Care Provide r Lynsey Madison PharmD Unavailable [phone] Reason for Visit * Reason Comments Med Refill Encounter Details Date Type Department Care Team ([facility] st Contact Info) Description 04/25/2023 Refill [facility] MEDICINE [address] [place] [address] Name, MD Cristhian [address] [place] [address] Essential hypertension Social History Tobacco Use Types [...] Description 07/02/2025 2:30 PM EST Office Visit [facility] OPTOMETRY [address] [place] [address] Becka You, OD 230 [place] [address] 08/13/2025 10:30 AM EST Clinical Support [facility] MEDICINE 230 [place] [address] Maritza Mejia, SANDRA [address] [place] [address] documented as of this encounter Visit Diagnoses Diagnosis Essential hypertension Unspecified essential hypertension documented in this encounter Additional Health Concerns Assessment Noted Time PHQ-9 Depression Total Score: 3 07/06/20 22 11:00 AM EST documented as of this encounter Care Teams Foam Charger Relationship Specialty Start Date End Date Chun Porras MD [address] [place] [address] PCP - General Internal Medicine 05/26/14 Lynsey Madison PharmD [address] [place] [address] Pharmacist Internal Medicine 09/26/23 documented as of this encounter
--- OUTSIDE RECORDS SUMMARY | 2025-05-24 14:37 | XMS_ITS | Encounter Summary ---
Author Organization [employer] Address [address] [facility] 7t [place] [address] Care Team Providers Care Solar Fabrication Technician Name Role Phone Chun Porras MD Primary Care Provide r Lynsey Madison PharmD Unavailable [phone] Reason for Visit * Reason Comments Med Refill Encounter Details Date Type Department Care Team ([facility] Contact Info) Description 07/20/2022 Refill [facility] MEDICINE [address] [place] [address] Chun Porras MD [address] [place] [address] Chronic midline low back pain without sciatica [...] Department Care Team (Late Contact Info) Description 07/02/2025 2:30 PM EST Office Visit [facility] OPTOMETRY [address] [place] [address] Becka You, OD [address] [place] [address] 08/13/2025 10:30 AM EST Clinical Support [facility] MEDICINE [address] [place] [address] Maritza Mejia, SANDRA 505 [place] [address] documented as of this encounter Visit Diagnoses Diagnosis Chronic midline low back pain without sciatica documented in this encounter Additional Health Concerns Assessment Noted Time PHQ-9 Depression Total Score: 3 07/06/20 22 11:00 AM EST documented as of this encounter Care Teams Solar Fabrication Technician Relationship Specialty Start Date End Date Chun Porras MD [address] [place] [address] PCP - General Internal Medicine 05/26/14 Lynsey Madison PharmD [address] [place] [address] Pharmacist Internal Medicine 09/26/23 documented as of this encounter
--- OUTSIDE RECORDS SUMMARY | 2025-05-24 14:37 | XMS_ITS | Encounter Summary ---
Author Organization [employer] Address [address] [facility] 7t [place] [address] Care Team Providers Care Gwot Ia/Ilo Intelligence Support Name Role Phone Chun Porras MD Primary Care Provide r Lynsey Madison PharmD Unavailable [phone] Reason for Visit * Reason Comments Med Refill Encounter Details Date Type Department Care Team (Late st Contact Info) Description 10/18/2023 Refill [facility] MEDICINE [address] [place] [address] Chun Porras MD [address] [place] [address] Essential hypertension Social History Tobacco Use Types [...] Description 07/02/2025 2:30 PM EST Office Visit [facility] OPTOMETRY [address] [place] [address] AvelinoBecka fritz, OD 230 [place] [address] 08/13/2025 10:30 AM EST Clinical Support [facility] MEDICINE [address] [place] [address] Maritza Mejia, SANDRA [address] [place] [address] documented as of this encounter Goals Goal [...] documented as of this encounter Care Teams Gwot Ia/Ilo Intelligence Support Relationship Specialty Start Date End Date Chun Porras MD [address] [place] [address] PCP - General Internal Medicine 05/26/14 Lynsey Madison PharmD [address] [place] [address] Pharmacist Internal Medicine 09/26/23 documented as of this encounter
--- OUTSIDE RECORDS SUMMARY | 2025-05-24 14:37 | XMS_ITS | Encounter Summary ---
Author Organization [employer] Address [address] [facility] 7t [place] [address] Care Team Providers Care Grey Roll Worker Name Role Phone Chun Porras MD Primary Care Provide r Lynsey Madison PharmD Unavailable [phone] Reason for Visit * Reason Comments Med Refill Encounter Details Date Type Department Care Team ([facility] st Contact Info) Description 09/29/2023 Refill [facility] MEDICINE [address] [place] [address] Chun Porras MD [address] [place] [address] Type 2 diabetes mellitus without complication, unspecified whether correction insulin use ([facility]) Social History Tobacco Use Types Packs/Day Years [...] Description 07/02/2025 2:30 PM EST Office Visit [facility] OPTOMETRY [address] [place] [address] Avleino, Becka, OD [address] [place] [address] 08/13/2025 10:30 AM EST Clinical Support [facility] MEDICINE [address] [place] [address] Maritza Mejia RN [address] [place] [address] documented as of this encounter Goals Goal Patient Goal Type Associated Problems Recent Progress Patient-Stated? Author Blood Pressure < 140/90 Blood Pressure Essential hypertension 106/68(2024 9:16 AM EDT) No Lynsey Madison PharmD documented as of this encounter Visit Diagnoses Diagnosis Type 2 diabetes mellitus without complication, unspecified whether correction insulin use documented in this encounter Additional Health Concerns Assessment Noted Time PHQ-9 Depression Total Score: 3 07/06/20 22 11:00 AM EST documented as of this encounter Care Teams Grey Roll Worker Relationship Specialty Start Date End Date Chun Porras MD [address] [place] [address] PCP - General Internal Medicine 05/26/14 Lynsey Madison PharmD [address] [place] [address] Pharmacist Internal Medicine 09/26/23 documented as of this encounter
--- OUTSIDE RECORDS SUMMARY | 2025-05-24 14:37 | XMS_ITS | Encounter Summary ---
Author Organization [employer] Address [address] [facility] 7t [place] [address] Care Team Providers Care Student Driving Instructor Name Role Phone Chun Porras MD Primary Care Provide r Lynsey Madison PharmD Unavailable [phone] Reason for Visit * Reason Comments Med Refill Encounter Details Date Type Department Care Team ([facility] st Contact Info) Description 04/23/2023 Refill [facility] MEDICINE [address] [place] [address] Chun Porras MD [address] [place] [address] Benign prostatic hyperplasia with lower urinary tract [...] Description 07/02/2025 2:30 PM EST Office Visit [facility] OPTOMETRY [address] [place] [address] Avelino, Becka, OD [address] [place] [address] 08/13/2025 10:30 AM EST Clinical Support [facility] MEDICINE [address] [place] [address] Maritza Mejia, SANDRA [address] [place] [address] documented as of this encounter Visit Diagnoses Diagnosis Benign prostatic hyperplasia with lower urinary tract symptoms documented in this encounter Additional Health Concerns Assessment Noted Time PHQ-9 Depression Total Score: 3 07/06/20 22 11:00 AM EST documented as of this encounter Care Teams Student Driving Instructor Relationship Specialty Start Date End Date Chun Porras MD [address] [place] [address] PCP - General Internal Medicine 05/26/14 Lynsey Madison PharmD [address] [place] [address] Pharmacist Internal Medicine 09/26/23 documented as of this encounter
--- OUTSIDE RECORDS SUMMARY | 2025-05-24 14:37 | XMS_ITS | Encounter Summary ---
Author Organization [employer] Address [address] [facility] 7t [place] [address] Care Team Providers Care Retail Sales Associate Bilingual Name Role Phone Chun Porras MD Primary Care Provide r Lynsey Madison PharmD Unavailable [phone] Reason for Visit * Reason Onset Date Comments Med Refill 03/22/2023 Encounter Details Date Type Department Care Team (Late st Contact Info) Description 03/14/2023 Refill [facility] MEDICINE [address] [place] [address] Chun Porras MD 230 [place] [address] Chronic midline low back pain without sciatica [...] medication. He can be contact any time. Divehi Speaker * Telephone Encounter - Arlette Phipps [...] Description 07/02/2025 2:30 PM EST Office Visit [facility] OPTOMETRY [address] [place] [address] Avelino, Becka, OD [address] [place] [address] 08/13/2025 10:30 AM EST Clinical Support [facility] MEDICINE [address] [place] [address] Maritza Mejia, SANDRA [address] [place] [address] documented as of this encounter Visit Diagnoses Diagnosis Chronic midline low back pain without sciatica documented in this encounter Additional Health Concerns Assessment Noted Time PHQ-9 Depression Total Score: 3 07/06/20 22 11:00 AM EST documented as of this encounter Care Teams Retail Sales Associate Bilingual Relationship Specialty Start Date End Date Chun Porras MD [address] [place] [address] PCP - General Internal Medicine 05/26/14 Lynsey Madison PharmD [address] [place] [address] Pharmacist Internal Medicine 09/26/23 documented as of this encounter
--- OUTSIDE RECORDS SUMMARY | 2025-05-24 14:37 | XMS_ITS | Data Portability ---
Author Organization [facility], [facility] Address [address] [place] [address] Care Team Providers Care Malt Liquors Sales Representative Name Role Phone HIM DAVIN OTHER Assessment Encounter Date Assessment Date Assessment LastModified by Organization Details LastModified Time 10/04/2024 10/04/2024 As noted, we were called to see this patient regarding concerns of HTN. Evaluation in the field was performed by my training technician colleague, as noted above, I provided real-time [...] ED. I called in an expect at [facility]. Impression: Chest pain, shortness of breath, hypertension. Plan: ED Disposition: We discussed the situation and I recommended referral to the emergency department. This was based [facility] chest pain. [facility] 10/04/2024 13:48:24 Plan of Treatment Reminders Order Date Submit Date Provider Last Modified By Organization Details Last Modified Time Details Appointments None recorded. Lab None recorded. Referral None recorded. Procedures None recorded. Surgeries None recorded. Imaging electrocard iogram 2024 025 WILLI [facility], [address] [place] [address], [id number] 15:46:07 Medication Orders aspirin 81 mg chewable tablet [email or web address] [facility], [address] [place], [place], [id number], 13:48:03 Patient TargetsNo targets recorded. Patient InstructionsNo instructions recorded. Reason for Referral None Reported. Results Created Date Observation Date Name Description Value Unit Range Abnormal Flag Note LastModifiedBy Organization Detail LastModifiedTime 10/05/1910/04/2024 kenneth carrascogr am No observ ation record ed. [email or web address] [address], [phone] 10/04/2024 17:13:49 Result Notes None recorded. Medical [...] Details Last Updated DateTime 5 76 /min 46334.6 4 g 97 % 97 % 98.3 [degF] 16 /min 177.8 cm 145/76 mm[Hg] Not Available [facility] - production 13:20:55 Social History None recorded. Functional Status None recorded. Mental Status None recorded. Family History Nothing Reported. Medical History No medical history recorded. Past Encounters Encounter ID Performer Location Encounter Start Date Encounter Closed Date Diagnosis/Indication Diagnosis SNOMED-CT Code Diagnosis ICD10 Code Diagnosis IMO Codes Diagnosis Note [id number] Diogo Otto MD Main - [facility] [address] [place] [phone] 10/04/2024 13:20:53 10/05/2024 14:15:36 Chest pain 32693359 R07.9 Health Concerns Section Related Observation LastModified by Organization Detai ls LastModified Time None Recorded Concern Status LastModified by Organization Details LastModified Time None Recorded Advance Directives Directive None Recorded Payers Insurance Date Sequence Insurance Name Policy Number Policy Rashid Covered Member ID Rashid Member ID Guarantor Name 10/04/2024 1 [facility] - DOS ON OR AFTER 2022 - DUAL ELIGIBLE - [employer] AND ONE [employer] (MEDICARE REPLACEMENT/ADV ANTAGE - HMO) Francisco J Garcia [id number] Francisco J Garcia Notes Date Note Type Note Provider Name and Address Organization Details Recorded Time 10/04/2024 text/html ROS as noted in the HPI CRC Nurse Triage Notes (Cas Almeida): Reason For Request: blood pressure high Denies: History of Heart Attack, in the setting of active chest pain Active Chest pain, radiates to neck jaw and or arm Diaphoretic/Sweati ng Describes as c rushing Sudden onset of nausea/Vomiting and shortness of breath. Shortness of Breath Unable to speak in full sentences without distress Chief Complaints: High Blood Pressure PMH: Hypertension, Diabetes Mellitus Type 2, Asthma PMH Reviewed at 10/04/2024 - 10:20 Allergies Reviewed at 10/04/2024 - 10:20 Comments: Ed Transporter verified the Pt.'s name//address and phone number. [...] feeling anxious about same- Denies confusion - Manager Equipment provider in place. Podiatric Physician Organization Information for Alice Gilmore Business Legal Name: [employer]. Address: [address] [place] [address], Band Sawing Machine Operator: Trae MACIASIA No.: [id number] Podiatric Physician POC Test Results from Alice Gilmore EKG (13:32:45) EKG test performed. Attachments uploaded as part of this test result can be found under Documents section. .................. .................. .................. .................. .................. .................. .................. ............... Podiatric Physician Note From Alice Gilmore: [facility] makes pt contact. He answers the door and invites [facility] inside his small apartment. He is ambulating w/ a cane and moving about unencumbered. He sits on the sofa w/o pain or discomfort. Pt is not in acute distress. He is not tripoding, no stridor or sonorous respirations are noted. No facial droop, one-sided weakness, or slurred speech are observed and he is not bleeding anywhere. Pt speaks limited broken Yakut, so outdoor illuminating engineer services are utilized. Pt endorses GALLARDO, CP, [...] is denying recent illness, fevers/chills, or n/v/d. [facility] obtains vital signs and pt is assessed. Lung sounds are clear, cp is not reproducible w/ palpation or compression of the chest wall and abdomen is soft and nontender w/ no guarding, distension, or pulsating masses noted. [facility] does not appreciate any swelling to the LEs at this time. A 12-lead EKG is obtained. [facility] contacts [facility] and discusses the above and [facility] and [facility] agree pt should be evaluated in the ER for cardiac enzymes. [facility] speaks to pt through the outdoor illuminating engineer and expresses concerns. Pt is amendable to transport to [facility]. [facility] administers 324mg baby aspirin PO and instructs pt to chew and swallow. Pt is transported by [facility]. [facility] is clear. Report completed by JAMES Gilmore [id number]. [facility] Medication Orders: aspirin 81 mg chewable tablet: Administered .................. .................. .................. .................. .................. .................. .................. ............... [facility] Consulted: Diogo Otto .................. .................. .................. .................. .................. .................. .................. ............... Disposition: Fulfilled Diogo Otto MD [address] [facility], [place], [address], [employer] BiolActisLESLEY, YESSY 10/04/2024 14:53:25
--- OUTSIDE RECORDS SUMMARY | 2025-05-24 14:37 | XMS_ITS | Encounter Summary ---
Author Organization [employer] Address [address] [facility] 7t [place] [address] Care Team Providers Care Vice President Payer Name Role Phone Chun Porras MD Primary Care Provide r Lynsey Madison PharmD Unavailable [phone] Reason for Visit * Reason Comments Med Refill Encounter Details Date Type Department Care Team ([facility] st Contact Info) Description 07/04/2023 Refill [facility] MEDICINE [address] [place] [address] Chun Porras MD [address] [place] [address] Type 2 diabetes mellitus without complication, unspecified whether penitentiary insulin use ([facility]) Social History Tobacco Use Types [...] Description 07/02/2025 2:30 PM EST Office Visit [facility] OPTOMETRY [address] [place] [address] AvelinoBecka fritz, OD [address] [place] [address] 08/13/2025 10:30 AM EST Clinical Support [facility] MEDICINE [address] [place] [address] Maritza Mejia, SANDRA [address] [place] [address] documented as of this encounter Visit Diagnoses Diagnosis Type 2 diabetes mellitus without complication, unspecified whether penitentiary insulin use documented in this encounter Additional Health Concerns Assessment Noted Time PHQ-9 Depression Total Score: 3 07/06/20 22 11:00 AM EST documented as of this encounter Care Teams Vice President Payer Relationship Specialty Start Date End Date Chun Porras MD [address] [place] [address] PCP - General Internal Medicine 05/26/14 Lynsey Madison PharmD [address] [place] [address] Pharmacist Internal Medicine 09/26/23 documented as of this encounter
--- OUTSIDE RECORDS SUMMARY | 2025-05-24 14:37 | XMS_ITS | Encounter Summary ---
Author Organization [employer] Address [address] [facility] 7[address] [place] [address] Care Team Providers Care Faucet Polisher Name Role Phone Chun Porras MD Primary Care Provide r Lynsey Madison PharmD Unavailable [phone] Reason for Visit * Reason Comments Med Refill Encounter Details Date Type Department Care Team ([facility] st Contact Info) Description 11/14/2023 Refill [facility] MEDICINE [address] [place] [address] Chun Porras MD [address] [place] [address] Chronic midline low back pain without sciatica [...] Description 07/02/2025 2:30 PM EST Office Visit [facility] OPTOMETRY [address] [place] [address] Becka You, OD [address] [place] [address] 08/13/2025 10:30 AM EST Clinical Support [facility] MEDICINE [address] [place] [address] Maritza Mejia, RN [address] [place] [address] documented as of this encounter Goals Goal [...] documented as of this encounter Care Teams Faucet Polisher Relationship Specialty Start Date End Date Chun Porras MD [address] [place] [address] PCP - General Internal Medicine 05/26/14 Lynsey Madison, MichaelD [address] [place] [address] Pharmacist Internal Medicine 09/26/23 documented as of this encounter
--- OUTSIDE RECORDS SUMMARY | 2025-05-24 14:37 | XMS_ITS | Encounter Summary ---
Author Organization [employer] Address [address] [facility] 7t [place] [address] Care Team Providers Care Software Tools Developer Name Role Phone Chun Porras MD Primary Care Provide r Lynsey Madison PharmD Unavailable [phone] Reason for Visit * Reason Comments Med Refill Encounter Details Date Type Department Care Team ([facility] st Contact Info) Description 06/21/2023 Refill [facility] MEDICINE [address] [place] [address] Chun Porras MD [address] [place] [address] Type 2 diabetes mellitus without complication, unspecified whether halfway insulin use ([facility]); Mixed hyperlipidemia Social History Tobacco Use [...] Description 07/02/2025 2:30 PM EST Office Visit [facility] OPTOMETRY [address] [place] [address] Becka You, OD [address] [place] [address] 08/13/2025 10:30 AM EST Clinical Support [facility] MEDICINE [address] [place] [address] Maritza Mejia, SANDRA [address] [place] [address] documented as of this encounter Visit Diagnoses Diagnosis Type 2 diabetes mellitus without complication, unspecified whether tank terminal gauger insulin use Mixed hyperlipidemia documented in this encounter Additional Health Concerns Assessment Noted Time PHQ-9 Depression Total Score: 3 07/06/20 22 11:00 AM EST documented as of this encounter Care Teams Software Tools Developer Relationship Specialty Start Date End Date Chun Porras MD [address] [place] [address] PCP - General Internal Medicine 05/26/14 Lynsey Madison PharmD [address] [place] [address] Pharmacist Internal Medicine 09/26/23 documented as of this encounter
--- OUTSIDE RECORDS SUMMARY | 2025-05-24 14:37 | XMS_ITS | Encounter Summary ---
Author Organization [employer] Address [address] [facility] 7t [place] [address] Care Team Providers Care Tree Sapper Name Role Phone Chun Porras MD Primary Care Provide r Lynsey Madison PharmD Unavailable [phone] Reason for Visit * Reason Comments Med Refill Encounter Details Date Type Department Care Team ([facility] st Contact Info) Description 09/18/2023 Refill [facility] MEDICINE [address] [place] [address] Chun Porras MD [address] [place] [address] Mixed hyperlipidemia Social History Tobacco Use Types [...] Description 07/02/2025 2:30 PM EST Office Visit [facility] OPTOMETRY [address] [place] [address] AvelinoBecka fritz, OD [address] [place] [address] 08/13/2025 10:30 AM EST Clinical Support [facility] MEDICINE [address] [place] [address] Maritza Mejia, SANDRA [address] [place] [address] documented as of this encounter Goals Goal [...] documented as of this encounter Care Teams Tree Sapper Relationship Specialty Start Date End Date Chun Porras MD [address] [place] [address] PCP - General Internal Medicine 05/26/14 Lynsey Madison PharmD [address] [place] [address] Pharmacist Internal Medicine 09/26/23 documented as of this encounter
--- OUTSIDE RECORDS SUMMARY | 2025-05-24 14:37 | XMS_ITS | Encounter Summary ---
Author Organization [employer] Address [address] [facility] 7t [place] [address] Care Team Providers Care Order Checker Name Role Phone Chun Porras MD Primary Care Provide r Lynsey Madison PharmD Unavailable [phone] Reason for Visit * Reason Comments Med Refill Encounter Details Date Type Department Care Team ([facility] st Contact Info) Description 11/14/2023 Refill [facility] MEDICINE [address] [place] [address] Chun Porras MD [address] [place] [address] Chronic midline low back pain without sciatica [...] Description 07/02/2025 2:30 PM EST Office Visit [facility] OPTOMETRY [address] [place] [address] Becka You, OD [address] [place] [address] 08/13/2025 10:30 AM EST Clinical Support [facility] MEDICINE [address] [place] [address] Maritza Mejia, RN [address] [place] [address] documented as of this encounter Goals Goal Patient Goal Type Associated Problems Recent Progress Patient-Stated? Author Blood Pressure < 140/90 Blood Pressure Essential hypertension 106/68(2024 9:16 AM EDT) No Lynesy Madison, Sherwin documented as of this encounter Visit Diagnoses Diagnosis Chronic midline low back pain without sciatica documented in this encounter Additional Health Concerns Assessment Noted Time PHQ-9 Depression Total Score: 1 11/12/19 24 11:09 AM EDT documented as of this encounter Care Teams Order Checker Relationship Specialty Start Date End Date Chun Porras MD [address] [place] [address] PCP - General Internal Medicine 05/26/14 Lynsey Madison, MichaelD [address] [place] [address] Pharmacist Internal Medicine 09/26/23 documented as of this encounter
--- OUTSIDE RECORDS SUMMARY | 2025-05-24 14:37 | XMS_ITS | Encounter Summary ---
Author Organization [employer] Address [address] [facility] [address] [place] [address] Care Team Providers Care Laboratory Miller Name Role Phone Chun Porras MD Primary Care Provide r Lynsey Madison PharmD Unavailable [phone] Reason for Visit * Reason Comments Med Refill Encounter Details Date Type Department Care Team ([facility] st Contact Info) Description 11/12/2024 Refill [facility] MEDICINE [address] [place] [address] Chun Porras MD [address] [place] [address] Chronic midline low back pain without sciatica [...] Description 07/02/2025 2:30 PM EST Office Visit [facility] OPTOMETRY [address] [place] [address] Avelino, Becka, OD [address] [place] [address] 08/13/2025 10:30 AM EST Clinical Support [facility] MEDICINE [address] [place] [address] Maritza Mejia, SANDRA [address] [place] [address] documented as of this encounter Goals Goal [...] documented as of this encounter Care Teams Laboratory Miller Relationship Specialty Start Date End Date Chun Porras MD [address] [place] [address] PCP - General Internal Medicine 05/26/14 Lynsey Madison PharmD [address] [place] [address] Pharmacist Internal Medicine 09/26/23 documented as of this encounter
--- OUTSIDE RECORDS SUMMARY | 2025-05-24 14:37 | XMS_ITS | Encounter Summary ---
Author Organization [employer] Address [address] [facility] [address] [place] [address] Care Team Providers Care Recruiter Manager Name Role Phone Chun Porras MD Primary Care Provide r Lynsey Madison PharmD Unavailable [phone] Reason for Visit * Reason Comments Med Refill Encounter Details Date Type Department Care Team ([facility] st Contact Info) Description 11/12/2024 Refill [facility] MEDICINE [address] [place] [address] Chun Porras MD [address] [place] [address] Chronic midline low back pain without sciatica [...] Description 07/02/2025 2:30 PM EST Office Visit [facility] OPTOMETRY [address] [place] [address] Avelino, Becka, OD [address] [place] [address] 08/13/2025 10:30 AM EST Clinical Support [facility] MEDICINE [address] [place] [address] Maritza Mejia, SANDRA [address] [place] [address] documented as of this encounter Goals Goal [...] documented as of this encounter Care Teams Recruiter Manager Relationship Specialty Start Date End Date Chun Porras MD [address] [place] [address] PCP - General Internal Medicine 05/26/14 Lynsey Madison PharmD [address] [place] [address] Pharmacist Internal Medicine 09/26/23 documented as of this encounter
--- OUTSIDE RECORDS SUMMARY | 2025-05-24 14:37 | XMS_ITS | Encounter Summary ---
Author Organization [employer] Address [address] [facility] 7t [place] [address] Care Team Providers Care Senior Data Scientist Name Role Phone Chun Porras MD Primary Care Provide r Lynsey Madison PharmD Unavailable [phone] Encounter Details Date Type Department Care Team (Late Contact Info) Description 11/14/2022 Abstract [facility] MEDICINE [address] [place] [address] Chun Porras MD [address] [place] [address] Social History Tobacco Use Types Packs/Day Years [...] Description 07/02/2025 2:30 PM EST Office Visit [facility] OPTOMETRY [address] [place] [address] Becka You, OD [address] [place] [address] 08/13/2025 10:30 AM EST Clinical Support [facility] MEDICINE [address] [place] [address] Maritza Mejia, RN [address] [place], [place] [phone] documented as of this encounter Procedures Procedure [...] as of this encounter Care Teams Senior Data Scientist Relationship Specialty Start Date End Date Chun Porras MD [address] [place] [address] PCP - General Internal Medicine 05/26/14 Lynsey Madison PharmD [address] [place], [place] [phone] Pharmacist Internal Medicine 09/26/23 documented as of this encounter
--- OUTSIDE RECORDS SUMMARY | 2025-05-24 14:37 | XMS_ITS | Clinical Summary ---
Author Organization [employer] Address [address] [facility] [address] [place] [address] Care Team Providers Care Supervisor Coal Handling Name Role Phone Chun Porras MD Primary Care Provide r Lynsey Madison PharmD Unavailable [phone] Allergies No known active allergies Medications * [...] long term care social worker insulin use TEST BLOOD SUGAR TWICE DAILY [...] long term care social worker insulin use TEST BLOOD SUGAR TWICE DAILY [...] without complication, unspecified whether jail insulin use TAKE 1 TABLET BY MOUTH [...] long term care social worker insulin use TAKE 2 TABLETS BY MOUTH ONCE DAILY IN THE MORNING and TAKE 1 TABLET BY MOUTH AT BEDTIME 270 tablet 1 Active traMADol (Ultram) 50 MG tabletIndications :Chronic midline low back pain without sciatica TAKE 1 TABLET BY MOUTH EVERY 8 HOURS NEEDED FOR SEVERE PAIN 84 tablet Active sildenafil (Viagra) 100 MG tabletIndications :Erectile dysfunction, unspecified erectile dysfunction type TAKE 1 TABLET 1 HOUR BEFORE SEXUAL RELATIONS ONCE DAILY NEEDED. 10 tablet Active sildenafil (Viagra) 100 MG tabletIndications [...] a second opinion Will refer to our [facility] Derm clinic Intermittent chest pain 03/07/2023 [...] AM EDT): Patient previously seen at our [facility] by Dr Praveen Wagoner with a [...] EDT): Patient previously seen here at our [facility] by Dr Praveen Wagoner with a [...] EDT): Patient previously seen here at our [facility] by Dr Praveen Wagoner with a [...] by Ирина SWENSON and was referred to Chemistry Technician Dr Meyer for Pulmonary clearance. Pt was [...] (Updated 08/22/2023) - Patient transferred medications from [facility] to [facility] and was not pleased with results. [...] Eye Exam Plan: - Referral sent for [facility] Optometry - Continue with current therapy [...] i\used to be under the care of [facility], last seen last 06/20/2023 Back in [...] L3-L4. Milder degenerative changes at remaining levels. [facility] gave him a steroid injection in [...] i\used to be under the care of [facility], last seen last 06/20/2023 Back in [...] L3-L4. Milder degenerative changes at remaining levels. [facility] gave him a steroid injection back [...] i\used to be under the care of [facility], last seen last 03/09/2019 Back in [...] i\used to be under the care of [facility], last seen last 03/09/2019 Back in [...] he tells me he was referref by [facility]. I asked him to find out so I can request records [facility] gave him one last Tramadol prescription [...] Chest tubes in the past. Admitted to [facility] from 12/18-06/2014 because of spontaneous right pneumothorax. Treated with chest tube, and had bronchoscopy with right parietal pleurectomy, multiple wedge resections of blebs of right upper and middle lobes. kellen 1 antitrypsin was normal Pt was being followed by pulmonology at [facility], he now tells me the title lawyer left and they did not assign him [...] Chest tubes in the past. Admitted to [facility] from 12/18-06/2014 because of spontaneous right pneumothorax. Treated with chest tube, and had bronchoscopy with right parietal pleurectomy, multiple wedge resections of blebs of right upper and middle lobes. kellen 1 antitrypsin was normal Pt was being followed by pulmonology at [facility], he now tells me the title lawyer left and they did not assign him [...] Chest tubes in the past. Admitted to [facility] from 12/18-06/2014 because of spontaneous right pneumothorax. Treated with chest tube, and had bronchoscopy with right parietal pleurectomy, multiple wedge resections of blebs of right upper and middle lobes. kellen 1 antitrypsin was normal Pt was being followed by pulmonology at [facility], he now tells me the title lawyer left and they did not assign him [...] Chest tubes in the past. Admitted to [facility] from 12/18-06/2014 because of spontaneous right pneumothorax. Treated with chest tube, and had bronchoscopy with right parietal pleurectomy, multiple wedge resections of blebs of right upper and middle lobes. kellen 1 antitrypsin was normal Pt was being followed by pulmonology at [facility], he now tells me the title lawyer left and they did not assign him [...] Chest tubes in the past. Admitted to [facility] from 12/18-06/2014 because of spontaneous right pneumothorax. Treated with chest tube, and had bronchoscopy with right parietal pleurectomy, multiple wedge resections of blebs of right upper and middle lobes. kellen 1 antitrypsin was normal Pt was being followed by pulmonology at [facility], he now tells me the title lawyer left and they did not assign him [...] Chest tubes in the past. Admitted to [facility] from 12/18-06/2014 because of spontaneous right pneumothorax. Treated with chest tube, and had bronchoscopy with right parietal pleurectomy, multiple wedge resections of blebs of right upper and middle lobes. kellen 1 antitrypsin was normal Pt was being followed by pulmonology at [facility], he now tells me the title lawyer left and they did not assign him [...] with moderate depression. Under the care of [facility]. Currently on a regimen of: Clonidine 0.1 mg po qhs Pt denies Suicidal ideation at the moment. Patient denies any suicidal ideation or thoughts, Patient has crisis numbers and knows to use them if needed. Assessment & Plan (11/20/2022 1:22 PM EDT): Pt with moderate depression. Under the care of [facility]. Currently on a regimen of: Clonidine 0.1 mg po qhs Pt denies Suicidal ideation at the moment. Patient denies any suicidal ideation or thoughts, Patient has crisis numbers and knows to use them if needed. Encounters Date Type Department Care Team Description [address] [address] Chun Porras MD Med Refill 05/14/2025 Refill [facility] MEDICINE [address] [place] [address] [place] [address] Chun Porras MD Chronic midline low back pain without sciatica; Erectile dysfunction, unspecified erectile dysfunction type 05/07/2025 10:00 AM EDT Clinical Support [facility] MEDICINE [address] [place] [address] Maritza Mejia RN Chronic midline low back pain without sciatica (Primary Dx) 05/07/2025 Travel 04/25/2025 Orders Only GENERIC EXTERNAL DATA DEPARTMENT Provider, Generic External Data 04/15/2025 Refill [facility] MEDICINE [address] [place] [address] Chun Porras MD Erectile dysfunction, unspecified erectile dysfunction type 04/14/2025 Refill [facility] MEDICINE [address] [place] [address] Chun Porras MD Erectile dysfunction, unspecified erectile dysfunction type; Chronic midline low back pain without sciatica 04/07/2025 Telephone [facility] MEDICINE [address] [place] [address] Chun Porras MD chart prep 03/25/2025 Refill [facility] MEDICINE [address] [place] [address] Chun Porras MD Type 2 diabetes mellitus without complication, unspecified whether jail insulin use ([facility]) 03/17/2025 Telephone [facility] MEDICINE [address] [place] [address] Chun Porras MD Durable Medical Equipment 03/16/2025 Refill [facility] MEDICINE [address] [place] [address] Chun Porras MD Chronic midline low back pain without sciatica 03/11/2025 Telephone [facility] MEDICINE [address] [place] [address] Chun Porras MD Appointment Confirmation 03/10/2025 Telephone [facility] MEDICINE [address] [place] [address] Chun Porras MD Durable Medical Equipment 03/09/2025 Telephone [facility] MEDICINE [address] [place] [address] Chun Porras MD Error (VOID this visit) 03/08/2025 Telephone [facility] MEDICINE [address] [place] [address] Vicki Abdi RN Paperwork/Forms from Last 3 Months Immunizations Immunization Administration [...] housing situation today? I have angelica sing 09/10/[address] you li [...] Description 07/02/2025 2:30 PM EST Office Visit [facility] OPTOMETRY [address] [place] [address] Avelino, Megan, OD [address] [place] [address] 08/13/2025 10:30 AM EST Clinical Support [facility] MEDICINE [address] [place] [address] Maritza Mejia, SANDRA [address] [place] [address] Health Maintenance Due Date Last Done Comments [...] Screening 12/10/2025 12/10/2024 Eye Exam 01/22/2026 01/23/2024, 01/12, 01/23/2024, Additional history exists Diabetes: Urine Protein [...] Comments POCT LORENA-14 URINE DRUG SCREEN Routine 05/07/2025 9:41 AM EDT Chronic midline low back pain without sciatica XR CHEST 2 VIEWS Routine 04/25/2025 8:18 AM EDT D DIMER HIGH SENSITIVITY Routine 04/25/2025 7:25 AM EDT ALBUMIN, RANDOM URINE W/CREATININE Routine 02/23/2025 12:59 PM EDT Type 2 diabetes mellitus without complication, without long-term current use of insulin ([facility]) POCT GLYCATED HEMOGLOBIN, TOTAL Routine 02/18/2025 9:26 AM EDT Type 2 diabetes mellitus without complication, without long-term current use of insulin (CMS/HCC) HEPATITIS C AB W/REFL TO HCV RNA, QN, PCR Routine 12/20/2022 10:56 AM EDT Unexplained night sweats LIPID PANEL, STANDARD Routine 11/09/2022 11:21 AM EDT Pre-op exam HM COLONOSCOPY Routine 07/27/2020 from Last 3 Months or Most Recently Relevant to Health Maintenance Results * (ABNORMAL) POCT LORENA-14 Urine Drug Screen (05/07/2025 9:41 AM EDT) THC Positive(A) Negative Cocaine Screen, Urine Negative Negative Opiate Screen, Urine Negative Negative Methamphetamine Screen Urine Negative Negative Amphetamine Screen, Urine Negative Negative Benzodiazepines Screen, Urine Negative Negative Barbiturate Screen, Urine Negative Negative Methadone Screen, Urine Negative Negative Buprenophine Screen, Urine Negative Negative TCA, Urine Negative Negative MDMA Urine Negative Negative ng/mL Oxycodone Screen, Urine Negative Negative Phencyclidine (PCP), Urine Negative Negative Propoxyphene, Urine Negative Negative Fentanyl, Urine Negative Negative Urine Urine specimen obtained by clean catch procedure / Unknown 05/07/2025 9:41 AM EDT Narrative Maritza Mejia RN - 05/07/2025 9:41 AM EDT .UTOX cup Lot#[id number] Exp. 04/20/26 Internal Pass Control us Chun Mckinley MD POINT OF CARE TEST EN TER/EDIT ORDERABLES Final Result * XR Chest 2 Views (04/25/2025 8:18 AM EDT) Anatomical Region Laterality Modality Chest Radiographic Brenna ging 04/25/2025 8:18 AM EDT Narrative 04/25/2025 8:20 AM EDT [address] [address] XRay Report Signed Patient: Francisco J Romeo MR#: [id number] : 1960 Acct:[id number] Age/Sex: 64 / M ADM Date: 04/25/25 Loc: HO.ED Attending Dr: Ordering Physician: John Jung DO Date of Service: 04/25/25 Procedure(s): XR chest 2V Accession Number(s): [id number] cc: Chun Michel MD; John Jung DO Reason for Exam: chest pain CLINICAL HISTORY: chest pain 2 view chest x-ray Comparison: CR - XR CHEST 2V - 02/03/25 21:04 EDT Findings: There is no definite focal pneumonia. Subsegmental atelectasis and scarring are seen at the right base. Heart size is normal. No acute fracture. There may be emphysematous changes. IMPRESSION: There is no definite focal pneumonia. Subsegmental atelectasis and scarring are seen at the right base. This document has been electronically signed by: Bruce Arredondo MD on 04/25/2025 08:18:35 Dictated By: Bruce Arredondo MD Signed By: <Electronically signed by Bruce Arredondo MD in OV> 04/25/25818 DD/ 7 TD/TT: 04/25/25817 Wardrobe Manager: Procedure Note Donotuseinterpreter, Image - 04/25/2025 [place] [address] XRay Report Signed Patient: Johny Romeo#: Nelson [id number] : 1960cct:[id number] Age/Sex: 64 / MADM Date: 04/25/25 Loc: HO.ED Attending Dr: Ordering Physician: John Jung DO Date of Service: 04/25/25 Procedure(s): XR chest 2V Accession Number(s): [id number] cc: Chun Michel MD; John Jung DO Reason for Exam: chest pain CLINICAL HISTORY: chest pain 2 view chest x-ray Comparison: CR - XR CHEST 2V - 02/03/25 21:04 EDT Findings: There is no definite focal pneumonia. Subsegmental atelectasis and scarring are seen at the right base. Heart size is normal. No acute fracture. There may be emphysematous changes. IMPRESSION: There is no definite focal pneumonia. Subsegmental atelectasis and scarring are seen at the right base. This document has been electronically signed by: Bruce Arredondo MD on 04/25/2025 08:18:35 Dictated By: Bruce Arredondo MD Signed By: <Electronically signed by Bruce Arredondo MD in OV> 04/25/25818 DD/ 7 TD/TT: 04/25/25817 Wardrobe Manager: [facility] External Provider IMG XR PROCEDURES Edited Result - Final * D Dimer High Sensitivity (04/25/2025 7:25 AM EDT) D Dimer High Sensitivity 151 NG/ML [facility] Comment:D-DIMER HS REFERENCE RANGENote: Our assay reports D-Dimer Units (D- DU).The cut-off value for venous thromboembolic (VTE) disease is230 ng/mL. This value has a very high negative predictivevalue when the patient has a low to moderate clinicalprobability of VTE.The upper limit of normal is 243 ng/mL. 04/25/2025 7:25 AM EDT 04/25/2025 7:28 AM EDT Generic External Data Provider LAB BLOOD ORDERAB LES Final Result [facility] [address] [place] [phone] * Albumin, Random Urine W/Creatinine (02/23/2025 12:59 PM EDT) Creatinine, Urine 72.62 mg/dL [facility] Microalbumin Urine <5.0 mg/L [facility] Microalbum Creatinine Ratio Ur TNP <30 ug/mg cr [facility] Comment:Unable to calculate albumin/creatinine ratio due to lowmicroalbumin or creatinine result. Urine (Urine, Random) 02/23/2025 12:59 PM EDT 02/23/2025 2:17 PM EDT Result Lisa Mckinley MD LAB URINE ORDERABLES Final Result [facility] [address] [place] [phone] * (ABNORMAL) POCT HGB A1C (02/18/2025 9:26 AM EDT) Hemoglobin A1C 6.3(A) 4.0 - 5.7 % QC Media Lot # [id number] Lot# Expiration Date Blood 02/18/2025 9:26 AM EDT Result Lisa Mckinley MD POINT OF CARE TEST EN TER/EDIT ORDERABLES Final Result * Hepatitis C Antibody with Reflex to HCV, RNA, Quantitative, Real-Time PCR (12/20/2022 10:56 AM EDT) Hepatitis C Antibody NON-REACT FABRICIO NON-REACT FABRICIO [facility] [employer] Index 0.13 <1.00 [facility] Comment: HCV antibody was non-reactive. There is no laboratory evidence of HCV infection. In most cases, no further action is required. However, if recent HCV exposure is suspected, a test for HCV RNA (test code 44552) is suggested. For additional information please refer to http://education.[employer] the [employer]/faq/QJM36t1 (This link is being provided for informational/ educational purposes only.) Blood Venous blood specimen / Unknown 12/20/2022 10:56 AM EDT 12/20/2022 10:56 AM EDT Narrative [facility] - 12/21/2022 5:38 AM EDT FASTING:YES FASTING: YES us Chun Mckinley MD LAB BLOOD ORDERABLES Final Result Performing Organization Address [facility]/ZIP Co de Phone Number [facility] [address], [place] [address] [facility] [address] [place] [address] * Lipid Panel, Standard (11/09/2022 11:21 AM EDT) Cholesterol, Total 138 <200 mg/dL [facility] HDL Cholesterol 54 > OR = 40 mg/dL [facility] Triglycerides 131 <150 mg/dL [facility] LDL Cholesterol 63 mg/dL (calc) [facility] Comment: Reference range: <100 Desirable range <100 mg/dL for primary prevention; <70 mg/dL for patients with CHD or diabetic patients with > or = 2 CHD risk factors. LDL-C is now calculated using the Manav-Hernandez calculation, which is a validated novel method providing better accuracy than the Friedewald equation in the estimation of LDL-C. Manav ERICKSON et al. DIONICIO. 2013;310(19): 9970-0029 (http://education.[employer]/faq/EAU163) Chol/HDLC Ratio 2.6 <5.0 (calc) [facility] Non-HDL Cholesterol 84 <130 mg/dL (calc) [facility] Comment: For patients with diabetes plus 1 major ASCVD risk factor, treating to a non-HDL-C goal of <100 mg/dL (LDL-C of <70 mg/dL) is considered a therapeutic option. Blood Venous blood specimen / Unknown 11/09/2022 11:21 AM EDT 11/09/2022 11:21 AM EDT Narrative [facility] - 11/10/2022 8:06 AM EDT FASTING:NO FASTING: NO Colleen GUZMÁNP LAB BLOOD ORDERABLES Final Resu lt Performing Organization Address City/[facility]/ZIP Co de Phone Number [facility] [address], [place] [address] [facility] [address] [place] [address] * Colonoscopy (07/27/2020) Colonoscopy Normal Normal 07/27/2020 Blossom Spencer - 07/27/2020 2:25 PM EST Recommended 5 year follow up ( see GI note 08/17/2020) us Historical Provider HEALTH MAINTENANCE Edited Result - Final from Last 3 Months or Most Recently Relevant to Health Maintenance Insurance [facility] LONG TERM OPTIONS (O D-SNP) Member Subscriber Plan / Payer (Ef fective 2023-Present) Name:Radha Aminjocelyn Francisco J Relation to Subscriber:Self Name:Garcia Vargas, Francisco J Payer ID:Not on file Group ID:[id number] Type:Medicare Address: [place] [address] [place] [address] Care Teams Supervisor Coal Handling Relationship Specialty Start Date End Date Chun Porras MD [address] [place] [address] PCP - General Internal Medicine 05/26/14 Lynsey Madison, MichaelD [address] [place] [address] [phone] Pharmacist Internal Medicine 09/26/23
== END 2025-05-24 13:19 | disposition home or self-care (01) ==
LOC: HO.HCS 12:23
PROVIDERS: Visit Provider Nurse Practitioner Family
DX: R07.9 Chest pain, unspecified (principal); I10 Essential (primary) hypertension; I51.7 Cardiomegaly
CPT/HCPCS: 99214; G2211

== ENCOUNTER → 2025-05-24 12:22 | Outpatient (BNVA) | payer OTHER, SELFPAY | PROVIDERS: Visit Provider Nurse Practitioner Family | DX: I10 Essential (primary) hypertension (principal); I51.7 Cardiomegaly; R07.9 Chest pain, unspecified | CPT/HCPCS: 99212 ==

== ENCOUNTER 2025-06-16 13:59 | Outpatient (AMB) | payer OTHER, SELFPAY ==
--- NOTE | 2025-06-16 14:01 | A.OFFVIS_ITS ---
Vital Signs 06/16/25 14:27 Height 5 ft 9 in Weight 183 lb 13.848 oz BMI 27.1 BP 115/74 Blood Pressure Location Lt brachial Position Sitting Pulse 74 Intake Visit Reasons: 8wks Intake Note: Patient is seen in office for 8 weeks follow up visit, following on GERD Pt c/o: states his symptoms has improved since last visit. Back Hoe Operator Required: Yes Back Hoe Operator Language: Hat [employer] Services: Back Hoe Operator Present Back Hoe Operator Name: Roberta CASAS Information Interpreted: non-clinical & clinical Accompanied by: Self / Same As Patient Allergies No Known Allergies (No Known Allergies*) Allergy (Verified 06/16/25 14:31) HPI HPI 8wks: Details: Assessment & Plan (1) H. pylori duodenitis: Comment: CONFIRMED ERADICATED VIA STOOL ANTIGEN 03/08/2025 AFTER QUADRUPLE THERAPY TREATMENT Discovered on 05/2024 EGD treated with quadruple therapy Code(s): K29.80 - Duodenitis without bleeding; B96.81 - Helicobacter pylori [H. pylori] as the cause of diseases classified elsewhere Category: Medical (2) GERD (gastroesophageal reflux disease): Code(s): K21.9 - Gastro-esophageal reflux disease without esophagitis Category: Medical Plan Burmese #Roz live - The patient is a 64-year-old male presenting with a follow-up on the treatment of Helicobacter pylori infection and management of excessive gas. - Treatment for H. pylori has reportedly resolved the infection. - Patient experiences significant flatulence, questioning the normalcy of such symptoms. - given the confirmation of resolution of the H pylori of the stool antigen, we can try titrating back his omeprazole. He was on 40 mg a day and I will p rescribe 20 mg a day and will see if we can even get him off of the medication in order to simplify his future medical regimens. He understands what we are doing and he knows that if he has excessive symptoms then we can continuous therapy. Return office visit in 8 weeks Medications: New omeprazole 20 mg PO DAILY 30 caps 6RF 30 days K21.9 - Gastro-esophageal reflux disease without esophagitis omeprazole 20 mg PO BID 30 days 60 caps 6RF K21.9 - Gastro-esophageal reflux disease without esophagitis Discontinued omeprazole Discontinued Reason: Doctor's Order 40 mg PO DAILY 30 days 30 caps 6RF rabeprazole (AcipHex) Discontinued Reason: Doctor's Order 20 mg PO BID 60 tabs 6RF K21.9 - Gastro-esophageal reflux disease without esophagitis TODAY'S VISIT [facility] Medical History (Updated 06/16/25 @ 16:35 by BRIGITTE Larson) H. pylori duodenitis Umbilical hernia Erosive gastritis New abnormality on chest x-ray REJI (acute kidney injury) Urgency of micturition Urinary hesitancy Nocturia more than twice per night Benign prostatic hyperplasia with weak urinary stream Epidermal inclusion cyst Atelectasis Fecal incontinence Flank lipoma Asthma-COPD overlap syndrome IBS (irritable bowel syndrome) Diabetes Arthritis Back pain GERD (gastroesophageal reflux disease) Bipolar 1 disorder Anxiety Depression Elevated cholesterol Tension pneumothorax, spontaneous Hypertension Asthma Surgical History History of esophagogastroduodenoscopy (EGD) S/P excision of lipoma (02/20/23) History of excision of mass (12/13/22) Hx of colonoscopy Hx of tracheostomy History of lung surgery Hx of hernia repair Family History Mother Stomach cancer Brother Prostate cancer Brother Prostate cancer Social History Household Members: None Housing: Apartment Do you presently have visiting nurse or other home services: No Alcohol intake: current Alcohol intake frequency: holidays/special occasions only Alcohol type: beer Patient Tobacco Use Status: Never used Tobacco e-Cigarette/Vaping Use: Never Used Second Hand Smoke Exposure: No Substance Use Type: Marijuana Advance Directives Date on File: 03/28/21 service: No Current occupational status: unemployed Physical Exam Vital Signs: Last Vital Signs Pulse 74 06/16/25 14:27 BP 115/74 06/16/25 14:27 BMI result Body Mass Index 27.1 Assessment & Plan Assessment & Plan (1) Merlos's esophagus determined by biopsy: Comment: 06/2024 EGD=HP and SSBE Code(s): K22.70 - Merlos's esophagus without dysplasia Category: Medical (2) IBS (irritable bowel syndrome): Code(s): K58.9 - Irritable bowel syndrome, unspecified Category: Medical (3) Abdominal bloating: Code(s): R14.0 - Abdominal distension (gaseous) Category: Medical (4) GERD (gastroesophageal reflux disease): Code(s): K21.9 - Gastro-esophageal reflux disease without esophagitis Category: Medical Plan Burmese # Laura from [facility] live Subjective Patient seen in follow-up for prior H. pylori treatment and acid suppression management. Reports feeling well and stable on omeprazole once daily after completing eradication therapy. Not using dicyclomine ( blue pill ). Uses simethicone for gas with good effect. History of H. pylori infection, treated and cured. Objective Assessment & Plan H. pylori infection, status post eradication; ongoing acid suppression therapy: Clinically stable following successful H. pylori eradication with good symptom control on once-daily omeprazole. - Continue omeprazole once daily. - Continue simethicone as needed. - Discontinue dicyclomine. - Renew prescriptions as requested. - Follow up in 1 year, sooner if symptoms recur or worsen. Medications: Changed From omeprazole 20 mg PO DAILY 30 days 30 caps 6RF K21.9 - Gastro-esophageal reflux disease without esophagitis To omeprazole 20 mg PO DAILY 90 caps 1RF 90 days K21.9 - Gastro-esophageal reflux disease without esophagitis Refilled simethicone (Gas Relief (simethicone)) 180 mg PO QID 360 ea 1RF Discontinued dicyclomine Discontinued Reason: Doctor's Order 20 mg PO QID 30 days 120 tabs 6RF K58.9 - Irritable bowel syndrome, unspecified, R15.9 - Full incontinence of feces Coding Level of Care Code Est Pt Level 3 (52831) Diagnoses Merlos's esophagus determined by biopsy K22.70 IBS (irritable bowel syndrome) K58.9 Abdominal bloating R14.0 GERD (gastroesophageal reflux disease) K21.9
[2025-06-16 14:27] VITALS: BP 115/74; PULSE 74; BMI 27.1
--- OUTSIDE RECORDS SUMMARY | 2025-06-16 16:47 | XMS_ITS | Encounter Summary ---
Author Organization [employer] Address [address] [facility] 7t [place] [address] Care Team Providers Care Assistant Federal Public Defender Name Role Phone Chun Porras MD Primary Care Provide r Lynsey Madison PharmD Unavailable [phone] Reason for Visit * Reason Comments Med Refill Encounter Details Date Type Department Care Team ([facility] st Contact Info) Description 04/21/2023 Refill [facility] MEDICINE [address] [place] [address] Name, MD Cristhian [address] [place] [address] Essential hypertension Social History Tobacco Use Types [...] Office Visit [facility] OPTOMETRY [address] [place] [address] Becka You, OD [address] [place] [address] 08/13/2025 10:30 AM EST Clinical Support [facility] MEDICINE [address] [place] [address] Maritza Mejia, SANDRA [address] [place] [address] documented as of this encounter Visit Diagnoses Diagnosis Essential hypertension Unspecified essential hypertension documented in this encounter Additional Health Concerns Assessment Noted Time PHQ-9 Depression Total Score: 3 07/06/20 22 11:00 AM EST documented as of this encounter Care Teams Assistant Federal Public Defender Relationship Specialty Start Date End Date Chun Porras MD [address] [place] [address] PCP - General Internal Medicine 05/26/14 Lynsey Madison PharmD [address] [place] [address] Pharmacist Internal Medicine 09/26/23 documented as of this encounter
--- OUTSIDE RECORDS SUMMARY | 2025-06-16 16:47 | XMS_ITS | Encounter Summary ---
Author Organization [employer] Address [address] [facility] 7t [place] [address] Care Team Providers Care Printed Circuit Boards Beveler Name Role Phone Chun Porras MD Primary Care Provide r Lynsey Madison PharmD Unavailable [phone] Reason for Visit * Reason Comments Med Refill Encounter Details Date Type Department Care Team ([facility] st Contact Info) Description 06/14/2025 Refill [facility] MEDICINE [address] [place] [address] Chun Porras MD [address] [place] [address] Erectile dysfunction, unspecified erectile dysfunction type; Chronic [...] your housing situation today? I have angelica pdeerson 09/10/[address] you li [...] Description 07/02/2025 2:30 PM EST Office Visit [facility] OPTOMETRY [address] [place] [address] Avelino, Becka, OD [address] [place] [address] 08/13/2025 10:30 AM EST Clinical Support [facility] MEDICINE [address] [place] [address] Maritza Mejia, SANDRA [address] [place] [address] documented as of this encounter Goals Goal [...] documented as of this encounter Care Teams Printed Circuit Boards Beveler Relationship Specialty Start Date End Date Chun Porras MD [address] [place] [address] PCP - General Internal Medicine 05/26/14 Lynsey Madison PharmD [address] [place] [address] Pharmacist Internal Medicine 09/26/23 documented as of this encounter
--- OUTSIDE RECORDS SUMMARY | 2025-06-16 16:47 | XMS_ITS | Data Portability ---
Author Organization [employer] [facility], [facility] Address [address] [place] [address] Care Team Providers Care Contour Band Saw Operator Vertical Name Role Phone HIM DAVIN OTHER Assessment Encounter Date Assessment Date Assessment LastModified by Organization Details LastModified Time 10/04/2024 10/04/2024 As noted, we were called to see this patient regarding concerns of HTN. Evaluation in the field was performed by my top trimmer colleague, as noted above, I provided real-time [...] ED. I called in an expect at [facility]. Impression: Chest pain, shortness of breath, hypertension. Plan: ED Disposition: We discussed the situation and I recommended referral to the emergency department. This was based on chest pain. [facility] Not available 10/04/2024 13:48:24 Plan of Treatment Reminders Order Date Submit Date Provider Last Modified By Organization Details Last Modified Time Details Appointments None recorded. Lab None recorded. Referral None recorded. Procedures None recorded. Surgeries None recorded. Imaging electrocard iogram 2024 025 WILLI [facility], [address] [place] [address], [id number] 15:46:07 Medication Orders aspirin 81 mg chewable tablet [email or web address] [facility], [address] [place], [place], [id number], 13:48:03 Patient TargetsNo targets recorded. Patient InstructionsNo instructions recorded. Reason for Referral None Reported. Results Created Date Observation Date Name Description Value Unit Range Abnormal Flag Note LastModifiedBy Organization Detail LastModifiedTime 10/05/1910/04/2024 kenneth carrascogr am No observ ation record ed. [email or web address] [address], [phone] 10/04/2024 17:13:49 Result Notes None recorded. Medical [...] Recorded Heart rate Body weight Oxygen saturation Body temperature Respiratory rate Body height Systolic And Diastolic Provider Name and Address Organization Details Last Updated DateTime 5 76 /min 03198.6 4 g 97 % 98.3 [degF] 16 /min 177.8 cm 145/76 mm[Hg] Not Available [facility] - production 13:20:55 Social History None recorded. Functional Status None recorded. Mental Status None recorded. Family History Nothing Reported. Medical History No medical history recorded. Past Encounters Encounter ID Performer Location Encounter Start Date Encounter Closed Date Diagnosis/Indication Diagnosis SNOMED-CT Code Diagnosis ICD10 Code Diagnosis IMO Codes Diagnosis Note [id number] Diogo Otto MD Main - [address] [phone] 10/04/2024 13:20:53 10/05/2024 14:15:36 Chest pain 43429505 R07.9 Health Concerns Section Related Observation LastModified by Organization Detai ls LastModified Time None Recorded Concern Status LastModified by Organization Details LastModified Time None Recorded Advance Directives Directive None Recorded Payers Insurance Date Sequence Insurance Name Policy Number Policy Rashid Covered Member ID Rashid Member ID Guarantor Name 10/04/2024 1 [facility] - DOS ON OR AFTER 2022 - DUAL ELIGIBLE - [employer] AND ONE [employer] (MEDICARE REPLACEMENT/ADV ANTAGE - HMO) Francisco J Garcia [id number] Francisco J Garcia Notes Date Note Type [...] 10:20 Allergies Reviewed at 10/04/2024 10:20 Comments: Lyft Driver verified the Pt.'s name//address and phone number. [...] feeling anxious about same- Denies confusion - Process Server provider in place. Hides Inspector Organization Information for [facility] Business Legal Name: [employer]. Address: [address] [place] [id number], Train Station Agent: Trae Cotter MD CLIA No.: [id number] Hides Inspector POC Test Results from [facility] EKG (13:32:45) EKG test performed. Attachments uploaded as part of this test result can be found under Documents section. .................. .................. .................. .................. .................. .................. .................. ............... Hides Inspector Note From [facility]: [facility] makes pt contact. He answers the door and invites [facility] inside his small apartment. He is ambulating w/ a cane and moving about unencumbered. He sits on the sofa w/o pain or discomfort. Pt is not in acute distress. He is not tripoding, no stridor or sonorous respirations are noted. No facial droop, one-sided weakness, or slurred speech are observed and he is not bleeding anywhere. Pt speaks limited broken Georgian, so bus steward services are utilized. Pt endorses GALLARDO, CP, [...] is denying recent illness, fevers/chills, or n/v/d. [facility] obtains vital signs and pt is assessed. Lung sounds are clear, cp is not reproducible w/ palpation or compression of the chest wall and abdomen is soft and nontender w/ no guarding, distension, or pulsating masses noted. [facility] does not appreciate any swelling to the LEs at this time. A 12-lead EKG is obtained. [facility] contacts [facility] and discusses the above and [facility] and [facility] agree pt should be evaluated in the ER for cardiac enzymes. [facility] speaks to pt through the bus steward and expresses concerns. Pt is amendable to transport to [facility]. [facility] administers 324mg baby aspirin PO and instructs pt to chew and swallow. Pt is transported by [facility]. [facility] is clear. Report completed by JAMES Gilmore [id number]. [facility] Medication Orders: aspirin 81 mg chewable tablet: Administered .................. .................. .................. .................. .................. .................. .................. ............... [facility] Consulted: Diogo Otto .................. .................. .................. .................. .................. .................. .................. ............... Disposition: Fulfilled Diogo Otto MD [address] [place] [address],[address], [place], [address], STEF - YESSY BARAJAS 10/04/2024 14:53:25
--- OUTSIDE RECORDS SUMMARY | 2025-06-16 16:47 | XMS_ITS | Encounter Summary ---
Author Organization [employer] Address [address] [facility] [address] [place] [address] Care Team Providers Care Quality Specialist Name Role Phone Chun Porras MD Primary Care Provide r Lynsey Madison PharmD Unavailable [phone] Reason for Visit * Reason Comments Med Refill Encounter Details Date Type Department Care Team ([facility] st Contact Info) Description 04/28/2024 Refill [facility] MEDICINE [address] [place] [address] Lynsey Madison, PharmD [address] [place] [address] Type 2 diabetes mellitus without complication, unspecified 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 Author Blood Pressure < 140/90 Blood Pressure Essential hypertension 106/68(2024 9:16 AM EDT) No Lynsey Madison, MichaelD documented as of this encounter Visit Diagnoses Diagnosis Type 2 diabetes mellitus without complication, unspecified whether terminal gauger supervisor insulin use documented in this encounter Additional Health Concerns Assessment Noted Time PHQ-9 Depression Total Score: 1 11/12/19 24 11:09 AM EDT documented as of this encounter Care Teams Quality Specialist Relationship Specialty Start Date End Date Chun Porras MD [address] [place] [address] PCP - General Internal Medicine 05/26/14 Lynsey Madison, Sherwin [address] [place] [address] Pharmacist Internal Medicine 09/26/23 documented as of this encounter
--- OUTSIDE RECORDS SUMMARY | 2025-06-16 16:47 | XMS_ITS | Encounter Summary ---
Author Organization [employer] Address [address] [facility] 7t [place] [address] Care Team Providers Care Poker Supervisor Name Role Phone Chun Porras MD Primary Care Provide r Lynsey Madison PharmD Unavailable [phone] Reason for Visit * Reason Comments Med Refill Encounter Details Date Type Department Care Team (Late st Contact Info) Description 10/18/2023 Refill [facility] MEDICINE [address] [place] [address] Chun Porras MD [address] [place] [address] Essential hypertension Social History Tobacco Use Types [...] 2:30 PM EST Office Visit [facility] OPTOMETRY [address] [place] [address] AvelinoBecka fritz, OD [address] [place] [address] 08/13/2025 10:30 AM EST Clinical Support [facility] MEDICINE [address] [place] [address] Maritza Mejia, SANDRA [address] [place] [address] documented as of this encounter Goals Goal [...] documented as of this encounter Care Teams Poker Supervisor Relationship Specialty Start Date End Date Chun Porras MD [address] [place] [address] PCP - General Internal Medicine 05/26/14 Lynsey Madison PharmD [address] [place] [id number] Pharmacist Internal Medicine 09/26/23 documented as of this encounter
--- OUTSIDE RECORDS SUMMARY | 2025-06-16 16:47 | XMS_ITS | Clinical Summary ---
Author Organization [employer] Address 75 [facility] 7t [place] [address] Care Team Providers Care Vice President Global Advertising Sales Name Role Phone Chun Porras MD Primary Care Provide r Lynsey Madison PharmD Unavailable [phone] Allergies No known active allergies Medications * [...] 5 mg by mouth at bedtime. 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 TEST BLOOD SUGAR TWICE DAILY 100 strip 11 025 Active cetirizine (ZyrTEC) 10 MG tablet TAKE 1 TABLET BY MOUTH EVERY DAY 30 tablet 5 5 1:09 PM EST 025 Active metoprolol tartrate (Lopressor) 50 MG tabletIndications :Essential hypertension TAKE 1 TABLET BY MOUTH TWICE DAILY IN THE MORNING AND IN THE EVENING WITH FOOD 180 tablet 1 025 Active amLODIPine (Norvasc) 10 MG tabletIndications :Essential hypertension TAKE 1 TABLET BY MOUTH EVERY MORNING 90 tablet 1 5 1:09 PM EST 025 Active Aspirin Low Dose 81 MG EC tabletIndications :Type 2 diabetes mellitus without complication, unspecified whether [facility] insulin use TAKE 1 TABLET BY MOUTH [...] whether [facility] insulin use TAKE 2 TABLETS BY MOUTH [...] NEEDED FOR SEVERE PAIN 84 tablet Active traMADol (Ultram) 50 MG tabletIndications :Chronic midline low back pain without sciatica TAKE 1 TABLET BY MOUTH EVERY 8 HOURS NEEDED FOR SEVERE PAIN 84 tablet 025 2024 Discontinued sildenafil (Viagra) 100 MG tabletIndications :Erectile dysfunction, unspecified erectile dysfunction type TAKE 1 TABLET 1 HOUR BEFORE SEXUAL RELATIONS ONCE DAILY NEEDED. 10 tablet 025 2024 Discontinued Active Problems Problem [...] a second opinion Will refer to our [facility] Derm clinic Intermittent chest pain 03/07/2023 [...] AM EDT): Patient previously seen at our [facility] by Dr Praveen Wagoner with a [...] EDT): Patient previously seen here at our [facility] by Dr Praveen Wagoner with a [...] EDT): Patient previously seen here at our [facility] by Dr Praveen Wagoner with a [...] by Ирина SWENSON and was referred to [facility] Dr Meyer for Pulmonary clearance. Pt was [...] (Updated 08/22/2023) - Patient transferred medications from [facility] to [facility] and was not pleased with [...] Eye Exam Plan: - Referral sent for [facility] Optometry - Continue with current therapy [...] L3-L4. Milder degenerative changes at remaining levels. [facility] gave him a steroid injection in [...] i\used to be under the care of [facility], last seen last 06/20/2023 Back in 06/20/2017 [...] L3-L4. Milder degenerative changes at remaining levels. [facility] gave him a steroid injection in [...] L3-L4. Milder degenerative changes at remaining levels. [facility] gave him a steroid injection back [...] i\used to be under the care of [facility], last seen last 03/09/2019 Back in [...] i\used to be under the care of [facility], last seen last 03/09/2019 Back in [...] he tells me he was referref by [facility]. I asked him to find out so I can request records [facility] gave him one last Tramadol prescription [...] in the past. Ad[place] [facility] [place] because of spontaneous right pneumothorax. Treated with chest tube, and had bronchoscopy with right parietal pleurectomy, multiple wedge resections of blebs of right upper and middle lobes. kellen 1 antitrypsin was normal Pt was being followed by pulmonology at [facility], he now tells me the housemaid left and they did not assign him [...] in the past. Ad[place] [facility] [place] because of spontaneous right pneumothorax. Treated with chest tube, and had bronchoscopy with right parietal pleurectomy, multiple wedge resections of blebs of right upper and middle lobes. kellen 1 antitrypsin was normal Pt was being followed by pulmonology at [facility], he now tells me the housemaid left and they did not assign him [...] in the past. Ad[place] [facility] [place] because of spontaneous right pneumothorax. Treated with chest tube, and had bronchoscopy with right parietal pleurectomy, multiple wedge resections of blebs of right upper and middle lobes. kellen 1 antitrypsin was normal Pt was being followed by pulmonology at [facility], he now tells me the housemaid left and they did not assign him [...] in the past. Ad[place] [facility] [place] because of spontaneous right pneumothorax. Treated with chest tube, and had bronchoscopy with right parietal pleurectomy, multiple wedge resections of blebs of right upper and middle lobes. kellen 1 antitrypsin was normal Pt was being followed by pulmonology at [facility], he now tells me the housemaid left and they did not assign him [...] in the past. Ad[place] [facility] [place] because of spontaneous right pneumothorax. Treated with chest tube, and had bronchoscopy with right parietal pleurectomy, multiple wedge resections of blebs of right upper and middle lobes. kellen 1 antitrypsin was normal Pt was being followed by pulmonology at [facility], he now tells me the housemaid left and they did not assign him [...] in the past. Ad[place] [facility] [place] because of spontaneous right pneumothorax. Treated with chest tube, and had bronchoscopy with right parietal pleurectomy, multiple wedge resections of blebs of right upper and middle lobes. kellen 1 antitrypsin was normal Pt was being followed by pulmonology at [facility], he now tells me the housemaid left and they did not assign him [...] with moderate depression. Under the care of [facility]. Currently on a regimen of: Clonidine 0.1 mg po qhs Pt denies Suicidal ideation at the moment. Patient denies any suicidal ideation or thoughts, Patient has crisis numbers and knows to use them if needed. Assessment & Plan (11/20/2022 1:22 PM EDT): Pt with moderate depression. Under the care of [facility]. Currently on a regimen of: Clonidine 0.1 mg po qhs Pt denies Suicidal ideation at the moment. Patient denies any suicidal ideation or thoughts, Patient has crisis numbers and knows to use them if needed. Encounters Date Type Department Care Team Description 06/14/2025 Refill [facility] [address] [place] [address] Chun Porras MD Erectile dysfunction, unspecified erectile dysfunction type; Chronic midline low back pain without sciatica 2025 Telephone [facility] [address] [place] [address] Chun Porras MD Med Refill 05/14/2025 Refill [facility] [address] [place] [address] Chun Porras MD Chronic midline low back pain without sciatica; Erectile dysfunction, unspecified erectile dysfunction type 05/07/2025 10:00 AM EDT Clinical Support [facility] [address] [place] [address] Maritza Mejia RN Chronic midline low back pain without sciatica (Primary Dx) 05/07/2025 Travel 04/25/2025 Orders Only GENERIC EXTERNAL DATA DEPARTMENT Provider, Generic External Data 04/15/2025 Refill [facility] [address] [place] [address] Chun Porras MD Erectile dysfunction, unspecified erectile dysfunction type 04/14/2025 Refill [facility] [address] [place] [address] Chun Porras MD Erectile dysfunction, unspecified erectile dysfunction type; Chronic midline low back pain without sciatica 04/07/2025 Telephone [facility] [address] [place] [address] Chun Porras MD chart prep 03/25/2025 Refill [facility] [address] [facility] [place] [address] Chun Porras MD Type 2 diabetes mellitus without complication, unspecified whether [place] insulin use ([facility] 03/17/2025 Telephone [facility] [address] [place] [phone] Chun Porras MD Durable Medical Equipment from Last 3 Months Immunizations Immunization Administration [...] Description 07/02/2025 2:30 PM EST Office Visit [facility] OPTOMETRY [address] [place] [address] Becka You, OD [address] [place] [address] 08/13/2025 10:30 AM EST Clinical Support [facility] [address] [place] [address] Maritza Mejia, SANDRA [address] [place] [address] Health Maintenance Due Date Last Done Comments CT Colonography 1960 FIT DNA/Cologuard 1960 FIT 1960 FOBT 1960 Sigmoidoscopy 1958 Diabetes: Foot Exam 1968 Alcohol/Substance Use Screening 1970 RSV Patients and Patients Aged 60 years or older (1 - Risk 50-74 years 1-dose series) 2008 Lipid Panel 11/10/2023 11/09/2022, 11/13, 05/26/2020 COVID-19 Vaccine ( season) 2025 06/09/2024, 05/16/2022, 12/06/2021, Additional history exists Influenza Vaccine (#1) 2025 , 04/10/2022, 06/13/2021, Additional history exists Depression Monitoring 03/25/2025 09/22/2024, 025 Diabetes: Hemoglobin A1C 05/21/2025 025, 12/10/2024, 09/10/2024, Additional history exists Colonoscopy 07/27/2025 07/27/2020 Colorectal Cancer Screening 07/27/2025 [...] 9:16 AM EDT) No Lynsey Madison, Sherwin Help patients manage their type 2 diabetes Care Plan Help patients manage their type 2 diabetes No Maritza Mejia RN Weekly blood pressure task Care Plan Weekly blood pressure task Maritza Arriaza RN Help patients manage their type 2 diabetes Care Plan Help patients manage their type 2 diabetes No Maritza Mejia RN Patient has chronic kidney disease Care Plan Patient has chronic kidney disease No Maritza Mejia RN Weekly blood pressure task Care Plan Weekly blood pressure task No Maritza Mejia RN Patient has chronic kidney disease Care Plan Patient has chronic kidney disease No Maritza Mejia RN Procedures Procedure Name Priority Date/Time Associated Diagnosis [...] complication, without long-term current use of insulin ([facility]) POCT GLYCATED HEMOGLOBIN, TOTAL Routine 02/18/2025 9:26 [...] - 05/07/2025 9:41 AM EDT .UTOX cup Lot#[id number] Exp. 04/20/26 Internal Pass Control us Chun Mckinley MD POINT OF CARE TEST EN TER/EDIT ORDERABLES Final Result * XR Chest 2 Views (04/25/2025 8:18 AM EDT) Anatomical Region Laterality Modality Chest Radiographic Brenna ging 04/25/2025 8:18 AM EDT Narrative 04/25/2025 8:20 AM EDT [address] [address] XRay Report Signed Patient: Francisco J Romeo MR#: [id number] : 1960 Acct:[id number] Age/Sex: 64 / M ADM Date: 04/25/25 Loc: HO.ED Attending Dr: Ordering Physician: John Jung DO Date of Service: 04/25/25 Procedure(s): XR chest 2V Accession Number(s): [id number] cc: Chun Michel MD; John Jung DO [...] in OV> 04/25/25818 DD/ 7 TD/TT: 04/25/25817 [employer] Counter: Procedure Note Donotuseinterpreter, Image - 04/25/2025 [place] [address] XRay Report Signed Patient: Johny Romeo#: M [id number] : 1960cct:[id number] Age/Sex: 64 / MADM Date: 04/25/25 Loc: HO.ED Attending Dr: Ordering Physician: John Jung DO Date of Service: 04/25/25 Procedure(s): XR chest 2V Accession Number(s): [id number] cc: Chun Michel MD; John Jung DO [...] in OV> 04/25/25818 DD/ 7 TD/TT: 04/25/25817 Buffing [employer] Counter: [facility] External Provider IMG XR PROCEDURES Edited Result - Final * D Dimer High Sensitivity (04/25/2025 7:25 AM EDT) D Dimer High Sensitivity 151 NG/ML [facility] Comment:D-DIMER HS REFERENCE RANGENote: Our assay [...] Provider LAB BLOOD ORDERAB LES Final Result [facility] [address] [place] [phone] * Albumin, Random Urine W/Creatinine (02/23/2025 12:59 PM EDT) Creatinine, Urine 72.62 mg/dL [facility] Microalbumin Urine <5.0 mg/L [facility] Microalbum Creatinine Ratio Ur TNP <30 ug/mg cr [facility] Comment:Unable to calculate albumin/creatinine ratio due to lowmicroalbumin or creatinine result. Urine (Urine, Random) 02/23/2025 12:59 PM EDT 02/23/2025 2:17 PM EDT Result Lisa Mckinley MD LAB URINE ORDERABLES Final Result [facility] [address] [place] [phone] * (ABNORMAL) POCT HGB A1C (02/18/2025 [...] Hepatitis C Antibody NON-REACT FABRICIO NON-REACT FABRICIO [facility] [place] [employer] Index 0.13 <1.00 [facility] [employer] [facility] Comment: HCV antibody was non-reactive. There is no laboratory evidence of HCV infection. In most cases, no further action is required. However, if recent HCV exposure is suspected, a test for HCV RNA (test code 78066) is suggested. For additional information please refer to http://education.AmeriPath.Freever/faq/KNO73w6 (This link is being provided for informational/ educational purposes only.) Blood Venous blood specimen / Unknown 12/20/2022 10:56 AM EDT 12/20/2022 10:56 AM EDT Narrative [facility] - 12/21/2022 5:38 AM EDT FASTING:YES FASTING: YES Result Lisa Mckinley MD LAB BLOOD ORDERABLES Final Result Performing Organization Address [facility]/ZIP Co de Phone Number [facility] [address], [place] [address] [facility] [place] [employer] [address] [place] [address] * Lipid Panel, Standard (11/09/2022 11:21 AM EDT) Cholesterol, Total 138 <200 mg/dL [facility] [place] [employer] HDL Cholesterol 54 > OR = 40 mg/dL [facility] [place] [employer] Triglycerides 131 <150 mg/dL [facility] [place] [employer] LDL Cholesterol 63 mg/dL (calc) [facility] [employer] Comment: Reference range: <100 Desirable range <100 mg/dL for primary prevention; <70 mg/dL for patients with CHD or diabetic patients with > or = 2 CHD risk factors. LDL-C is now calculated using the Trever calculation, which is a validated novel method providing better accuracy than the Friedewald equation in the estimation of LDL-C. Manav SS et al. DIONICIO. 2013;310(19): 1982-1712 (http://education.Slide/faq/TZS821) Chol/HDLC Ratio 2.6 <5.0 (calc) [facility] [place] [employer] Non-HDL Cholesterol 84 <130 mg/dL (calc) [facility] [employer] Comment: For patients with diabetes plus 1 major ASCVD risk factor, treating to a non-HDL-C goal of <100 mg/dL (LDL-C of <70 mg/dL) is considered a therapeutic option. Blood Venous blood specimen / Unknown 11/09/2022 11:21 AM EDT 11/09/2022 11:21 AM EDT Narrative [facility] - 11/10/2022 8:06 AM EDT FASTING:NO FASTING: NO Colleen GUZMÁNP LAB BLOOD ORDERABLES Final Resu lt Performing Organization Address City/[facility]/ZIP Co de Phone Number [facility] [address], [place] [address] [facility] [place] [employer] [address] [place] [address] * Colonoscopy (07/27/2020) Colonoscopy Normal Normal 07/27/2020 Blossom Spencer - 07/27/2020 2:25 PM EST Recommended 5 year follow up ( see GI note 08/17/2020) us Historical Provider HEALTH MAINTENANCE Edited Result - Final from Last 3 Months or Most Recently Relevant to Health Maintenance Additional Health Concerns Active Problems Noted Date Diagnosed Date Help patients manage their type 2 diabetes 06/15 Weekly blood pressure task 06/15/2025 Help patients manage their type 2 diabetes 06/15 Patient has chronic kidney disease 06/15/2025 Weekly blood pressure task 06/15/2025 Patient has chronic kidney disease 06/15/2025 Insurance [facility] [employer] (O D-SNP) [place] [id number] Care Teams Vice President Global Advertising Sales Relationship Specialty Start Date End Date Chun Porras MD [address] [place], [place] [phone] PCP - General Internal Medicine 05/26/14 Lynsey Madison, MichaelD [address] [place], [place] [phone] Pharmacist Internal Medicine 09/26/23
--- OUTSIDE RECORDS SUMMARY | 2025-06-16 16:47 | XMS_ITS | Encounter Summary ---
Author Organization [employer] Address 75 [facility] 7t [place] [address] Care Team Providers Care Repeater Operator Name Role Phone Chun Porras MD Primary Care Provide r Lynsey Madison PharmD Unavailable [phone] Reason for Visit * Reason Comments Med Refill Encounter Details Date Type Department Care Team ([facility] st Contact Info) Description 11/12/2024 Refill [facility] [address] [place] [address] Chun Porras MD [address] [place] [address] Chronic midline low back pain without sciatica [...] Description 07/02/2025 2:30 PM EST Office Visit [facility] OPTOMETRY [address] [place] [address] Avelino, Becka, OD [address] [place] [address] 08/13/2025 10:30 AM EST Clinical Support [facility] MEDICINE [address] [place] [address] Maritza Mejia, SANDRA [address] [place] [address] documented as of this encounter Goals Goal [...] documented as of this encounter Care Teams Repeater Operator Relationship Specialty Start Date End Date Chun Porras MD [address] [place] [address] PCP - General Internal Medicine 05/26/14 Lynsey Madison PharmD [address] [place] [address] Pharmacist Internal Medicine 09/26/23 documented as of this encounter
--- OUTSIDE RECORDS SUMMARY | 2025-06-16 16:47 | XMS_ITS | Encounter Summary ---
Author Organization [employer] Address 75 [facility] 7t [place] [address] Care Team Providers Care Chief Nuclear Medicine Technologist Name Role Phone Chun Porras MD Primary Care Provide r Lynsey [place] PharmD Unavailable [phone] Reason for Visit * Reason Comments Med Refill Encounter Details Date Type Department Care Team ([facility] [facility] Contact Info) Description 07/20/2022 Refill [facility] [address] [place] [address] Chun Porras MD [address] [place] [address] Chronic midline low back pain without sciatica [...] Description 07/02/2025 2:30 PM EST Office Visit [facility] OPTOMETRY [address] [place] [address] Becka You, OD [address] [place] [address] 08/13/2025 10:30 AM EST Clinical Support [facility] MEDICINE [address] [place] [address] Maritza Mejia, SANDRA [address] [place] [address] documented as of this encounter Visit Diagnoses Diagnosis Chronic midline low back pain without sciatica documented in this encounter Additional Health Concerns Assessment Noted Time PHQ-9 Depression Total Score: 3 07/06/20 22 11:00 AM EST documented as of this encounter Care Teams Chief Nuclear Medicine Technologist Relationship Specialty Start Date End Date Chun Porras MD [address] [place] [address] PCP - General Internal Medicine 05/26/14 Lynsey Madison PharmD [address] [place] [address] Pharmacist Internal Medicine 09/26/23 documented as of this encounter
--- OUTSIDE RECORDS SUMMARY | 2025-06-16 16:47 | XMS_ITS | Encounter Summary ---
Author Organization [employer] Address 75 [facility] 7t [place] [address] Care Team Providers Care Social Media Campaign Manager Name Role Phone Chun Porras MD Primary Care Provide r Lynsey Madison PharmD Unavailable [phone] Reason for Visit * Reason Comments Med Refill Encounter Details Date Type Department Care Team ([facility] st Contact Info) Description 04/23/2023 Refill [facility] [address] [place] [address] Chun Porras MD [address] [place] [address] Benign prostatic hyperplasia with lower urinary tract [...] Description 07/02/2025 2:30 PM EST Office Visit [facility] OPTOMETRY [address] [place] [address] Avelino, Becka, OD [address] [place] [address] 08/13/2025 10:30 AM EST Clinical Support [facility] [address] [place] [address] Maritza Mejia, SANDRA [address] [place] [address] documented as of this encounter Visit Diagnoses Diagnosis Benign prostatic hyperplasia with lower urinary tract symptoms documented in this encounter Additional Health Concerns Assessment Noted Time PHQ-9 Depression Total Score: 3 07/06/20 22 11:00 AM EST documented as of this encounter Care Teams Social Media Campaign Manager Relationship Specialty Start Date End Date Chun Porras MD [address] [place] [address] PCP - General Internal Medicine 05/26/14 Lynsey Madison PharmD [address] [place] [address] Pharmacist Internal Medicine 09/26/23 documented as of this encounter
--- OUTSIDE RECORDS SUMMARY | 2025-06-16 16:47 | XMS_ITS | Encounter Summary ---
Author Organization [employer] Address 75 [facility] 7t [place] [address] Care Team Providers Care Box Strapper Name Role Phone Chun Porras MD Primary Care Provide r Lynsey [place] PharmD Unavailable [phone] Reason for Visit * Reason Comments Med Refill Encounter Details Date Type Department Care Team ([facility] st Contact Info) Description 11/14/2023 Refill [facility] MED[facility]INE [address] [place] [address] Chun Porras MD [address] [place] [address] Chronic midline low back pain without sciatica [...] 07/02/2025 2:30 PM EST Office Visit [facility] OPTOMETRY [address] [place] [address] Becka You, OD [address] [place] [address] 08/13/2025 10:30 AM EST Clinical Support [facility] MEDICINE [address] [place] [address] Maritza Mejia, RN [address] [place] [address] documented as of this encounter Goals Goal [...] documented as of this encounter Care Teams Box Strapper Relationship Specialty Start Date End Date Chun Porras MD [address] [place] [address] PCP - General Internal Medicine 05/26/14 Lynsey Madison, MichaelD [address] [place] [address] Pharmacist Internal Medicine 09/26/23 documented as of this encounter
--- OUTSIDE RECORDS SUMMARY | 2025-06-16 16:47 | XMS_ITS | Encounter Summary ---
Author Organization [employer] Address 75 [facility] 7t [place] [address] Care Team Providers Care Customer Support Manager Name Role Phone Chun Porras MD Primary Care Provide r Lynsey [place] PharmD Unavailable [phone] Reason for Visit * Reason Comments Med Refill Encounter Details Date Type Department Care Team ([facility] st Contact Info) Description 09/18/2023 Refill [facility] MEDICINE [address] [place] [address] Chun Porras MD [address] [place] [address] Mixed hyperlipidemia Social History Tobacco Use Types [...] 2:30 PM EST Office Visit [facility] OPTOMETRY [address] [place] [address] AvelinoBecka fritz, OD [address] [place] [address] 08/13/2025 10:30 AM EST Clinical Support [facility] MEDICINE [address] [place] [address] Maritza Mejia, SANDRA [address] [place] [address] documented as of this encounter Goals Goal [...] documented as of this encounter Care Teams Customer Support Manager Relationship Specialty Start Date End Date Chun Porras MD [address] [place] [address] PCP - General Internal Medicine 05/26/14 Lynsey Madison PharmD [address] [place] [address] Pharmacist Internal Medicine 09/26/23 documented as of this encounter
--- OUTSIDE RECORDS SUMMARY | 2025-06-16 16:47 | XMS_ITS | Encounter Summary ---
Author Organization [employer] Address 75 [facility] 7t [place] [address] Care Team Providers Care Chronometer Adjuster Name Role Phone Chun Porras MD Primary Care Provide r Lynsey Madison PharmD Unavailable [phone] Reason for Visit * Reason Comments Med Refill Encounter Details Date Type Department Care Team ([facility] st Contact Info) Description 02/17/2024 Refill [facility] [address] [place], [place] [phone] Chun Porras MD 230 [place] [address] Chronic midline low back pain without sciatica [...] Description 07/02/2025 2:30 PM EST Office Visit [facility] OPTOMETRY 267 [place] [address] Becka You, OD 230 [place] [address] 08/13/2025 10:30 AM EST Clinical Support [facility] MEDICINE 230 [place] [address] Maritza Mejia, RN 505 [place] [address] documented as of this encounter Goals Goal [...] documented as of this encounter Care Teams Chronometer Adjuster Relationship Specialty Start Date End Date Chun Porras MD 230 [place] [address] PCP - General Internal Medicine 05/26/14 Lynsey Madison, PharmD [address] [place] [address] Pharmacist Internal Medicine 09/26/23 documented as of this encounter
--- OUTSIDE RECORDS SUMMARY | 2025-06-16 16:47 | XMS_ITS | Encounter Summary ---
Author Organization [employer] Address 75 [facility] 7t [place] [address] Care Team Providers Care Rn Testing Name Role Phone Chun Porras MD Primary Care Provide r Lynsey Madison PharmD Unavailable [phone] Encounter Details Date Type Department Care Team ([facility] Contact Info) Description 11/14/2022 Abstract [facility] MEDICINE 230 [place] [address] Chun Proras MD 230 [place] [address] Social History Tobacco Use Types Packs/Day Years [...] Description 07/02/2025 2:30 PM EST Office Visit [facility] OPTOMETRY [address] [place] [address] Becka You, OD 230 [place] [address] 08/13/2025 10:30 AM EST Clinical Support [facility] MEDICINE 230 [place] [address] Maritza Mejia, RN 505 [place], [place] [phone] documented as of this encounter Procedures Procedure [...] documented as of this encounter Care Teams Rn Testing Relationship Specialty Start Date End Date Chun Porras MD 230 [place] [address] PCP - General Internal Medicine 05/26/14 Lynsey Madison PharmD 230 [place], [place] [phone] Pharmacist Internal Medicine 09/26/23 documented as of this encounter
--- OUTSIDE RECORDS SUMMARY | 2025-06-16 16:47 | XMS_ITS | Encounter Summary ---
Author Organization [employer] Address 75 [facility] 7t [place] [address] Care Team Providers Care Crop Research Scientist Name Role Phone Chun Porras MD Primary Care Provide r Lynsey Madison PharmD Unavailable [phone] Reason for Visit * Reason Comments Med Refill Encounter Details Date Type Department Care Team ([facility] st Contact Info) Description 11/14/2023 Refill [facility] MEDICINE 230 [place] [address] Chun Porras MD 230 [place] [address] Chronic midline low back pain without sciatica [...] Description 07/02/2025 2:30 PM EST Office Visit [facility] OPTOMETRY [address] [place] [address] Becka You, OD 230 [place] [address] 08/13/2025 10:30 AM EST Clinical Support [facility] MEDICINE 230 [place] [address] Maritza Mejia, RN 505 [place] [address] documented as of this encounter Goals Goal [...] documented as of this encounter Care Teams Crop Research Scientist Relationship Specialty Start Date End Date Chun Porras MD 230 [place] [address] PCP - General Internal Medicine 05/26/14 Lynsey Madison, MichaelD 230 [place] [address] Pharmacist Internal Medicine 09/26/23 documented as of this encounter
--- OUTSIDE RECORDS SUMMARY | 2025-06-16 16:47 | XMS_ITS | Encounter Summary ---
Author Organization [employer] Address 75 [facility] 7t [place] [address] Care Team Providers Care Lining Stamper Name Role Phone Chun Porras MD Primary Care Provide r Lynsey Madison PharmD Unavailable [phone] Reason for Visit * Reason Comments Med Refill Encounter Details Date Type Department Care Team ([facility] st Contact Info) Description 04/25/2023 Refill [facility] MEDICINE 230 [place] [address] Name, MD Cristhian 230 [place] [address] Essential hypertension Social History Tobacco Use Types [...] Office Visit [facility] OPTOMETRY [address] [place] [address] Becka You, OD 230 [place] [address] 08/13/2025 10:30 AM EST Clinical Support [facility] MEDICINE 230 [place] [address] Maritza Mejia, SANDRA 505 [place] [address] documented as of this encounter Visit Diagnoses Diagnosis Essential hypertension Unspecified essential hypertension documented in this encounter Additional Health Concerns Assessment Noted Time PHQ-9 Depression Total Score: 3 07/06/20 22 11:00 AM EST documented as of this encounter Care Teams Lining Stamper Relationship Specialty Start Date End Date Chun Porras MD [address] [place] [address] PCP - General Internal Medicine 05/26/14 Lynsey Madison PharmD [address] [place] [address] Pharmacist Internal Medicine 09/26/23 documented as of this encounter
--- OUTSIDE RECORDS SUMMARY | 2025-06-16 16:47 | XMS_ITS | Encounter Summary ---
Author Organization [employer] Address 75 [facility] 7t [place] [address] Care Team Providers Care Menhaden Fishing Crew Member Name Role Phone Chun Porras MD Primary Care Provide r Lynsey Madison PharmD Unavailable [phone] Reason for Visit * Reason Comments Med Refill Encounter Details Date Type Department Care Team ([facility] st Contact Info) Description 11/12/2024 Refill [facility] MEDICINE 230 [place] [address] Chun Porras MD 230 [place] [address] Chronic midline low back pain without sciatica [...] Description 07/02/2025 2:30 PM EST Office Visit [facility] OPTOMETRY [address] [place] [address] Avelino, Becka, OD 230 [place] [address] 08/13/2025 10:30 AM EST Clinical Support [facility] MEDICINE 230 [place] [address] Maritza Mejia, SANDRA 505 [place] [address] documented as of this encounter Goals Goal [...] documented as of this encounter Care Teams Menhaden Fishing Crew Member Relationship Specialty Start Date End Date Chun Porras MD 230 [place] [address] PCP - General Internal Medicine 05/26/14 Lynsey Madison PharmD 230 [place] [address] Pharmacist Internal Medicine 09/26/23 documented as of this encounter
--- OUTSIDE RECORDS SUMMARY | 2025-06-16 16:47 | XMS_ITS | Encounter Summary ---
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
--- OUTSIDE RECORDS SUMMARY | 2025-06-16 16:48 | XMS_ITS | Encounter Summary ---
Author Organization [employer] Address 75 [facility] 7t [place] [address] Care Team Providers Care Fish Cleaner Machine Tender Name Role Phone Chun Porras MD Primary Care Provide r Lynsey Madison PharmD Unavailable [phone] Reason for Visit * Reason Comments Med Refill Encounter Details Date Type Department Care Team ([facility] st Contact Info) Description 08/22/2023 Refill [facility] MEDICINE 230 [place] [address] Colleen Lou FNP 230 [place] [address] Chronic obstructive pulmonary disease with (acute) exacerbation [...] Visit [facility] OPTOMETRY 267 [place] [address] Avelino, Becka, OD 230 [place] [address] 08/13/2025 10:30 AM EST Clinical Support [facility] MEDICINE 230 [place] [address] Maritza Mejia, SANDRA 505 [place] [address] documented as of this encounter Goals Goal [...] documented as of this encounter Care Teams Fish Cleaner Machine Tender Relationship Specialty Start Date End Date Chun Porras MD [address] [place] [address] PCP - General Internal Medicine 05/26/14 Lynsey Madison, PharmD 230 [place] [address] Pharmacist Internal Medicine 09/26/23 documented as of this encounter
--- OUTSIDE RECORDS SUMMARY | 2025-06-16 16:48 | XMS_ITS | Encounter Summary ---
Author Organization [employer] Address 75 [facility] 7t [place] [address] Care Team Providers Care Horticultural Specialty Grower Inside Name Role Phone Chun Porras MD Primary Care Provide r Lynsey Madison PharmD Unavailable [phone] Reason for Visit * Reason Comments Med Refill Encounter Details Date Type Department Care Team ([facility] st Contact Info) Description 07/04/2023 Refill [facility] MEDICINE 230 [place] [address] Chun Porras MD 230 [place] [address] Type 2 diabetes mellitus without complication, 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 ([facility]) Social History Tobacco Use Types Packs/Day [...] Description 07/02/2025 2:30 PM EST Office Visit [facility] OPTOMETRY 267 [place] [address] AvelinoBecka fritz, OD 230 [place] [address] 08/13/2025 10:30 AM EST Clinical Support [facility] MEDICINE 230 [place] [address] Maritza Mejia, SANDRA 505 [place] [address] documented as of this encounter Visit Diagnoses Diagnosis Type 2 diabetes mellitus without complication, 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
--- OUTSIDE RECORDS SUMMARY | 2025-06-16 16:48 | XMS_ITS | Encounter Summary ---
Author Organization [employer] Address 75 [facility] 7t [place] [address] Care Team Providers Care Wood Grinder Operator Name Role Phone Chun Porras MD Primary Care Provide r Lynsey Madison PharmD Unavailable [phone] Reason for Visit * Reason Comments Med Refill Encounter Details Date Type Department Care Team ([facility] st Contact Info) Description 06/21/2023 Refill [facility] MEDICINE 230 [place] [address] Chun Porras MD 230 [place] [address] Type 2 diabetes mellitus without complication, 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
--- OUTSIDE RECORDS SUMMARY | 2025-06-16 16:48 | XMS_ITS | Encounter Summary ---
Author Organization [employer] Address [address] [facility] 7t [place] [address] Care Team Providers Care Glass Ribbon Machine Operator Assistant Name Role Phone Chun Porras MD Primary Care Provide r Lynsey Madison PharmD Unavailable [phone] Reason for Visit * Reason Onset Date Comments Med Refill 03/22/2023 Encounter Details Date Type Department Care Team (Late st Contact Info) Description 03/14/2023 Refill [facility] MEDICINE 230 [place] [address] Chun Porras MD 230 [place] [address] Chronic midline low back pain without sciatica [...] 07/02/2025 2:30 PM EST Office Visit [facility] OPTOMETRY [address] [place] [address] Avelino, Becka, OD 230 [place] [address] 08/13/2025 10:30 AM EST Clinical Support [facility] MEDICINE 230 [place] [address] Maritza Mejia, SANDRA 505 [place] [address] documented as of this encounter Visit Diagnoses Diagnosis Chronic midline low back pain without sciatica documented in this encounter Additional Health Concerns Assessment Noted Time PHQ-9 Depression Total Score: 3 07/06/20 22 11:00 AM EST documented as of this encounter Care Teams Glass Ribbon Machine Operator Assistant Relationship Specialty Start Date End Date Chun Porras MD [address] [place] [address] PCP - General Internal Medicine 05/26/14 Lynsey Madison PharmD [address] [place] [address] Pharmacist Internal Medicine 09/26/23 documented as of this encounter
== END 2025-06-16 14:40 | disposition home or self-care (01) ==
LOC: HO.HGI 13:59
PROVIDERS: PCP Internal Medicine; Visit Provider Nurse Practitioner
DX: K22.70 Barrett's esophagus without dysplasia (principal); K58.9 Irritable bowel syndrome, unspecified; R14.0 Abdominal distension (gaseous); K21.9 Gastro-esophageal reflux disease without esophagitis
CPT/HCPCS: 99213

== ENCOUNTER → 2025-06-16 13:59 | Outpatient (BNVA) | payer OTHER, SELFPAY | PROVIDERS: PCP Internal Medicine; Visit Provider Nurse Practitioner | DX: K21.9 Gastro-esophageal reflux disease without esophagitis (principal); K22.70 Barrett's esophagus without dysplasia; K58.9 Irritable bowel syndrome, unspecified; R14.0 Abdominal distension (gaseous); Z79.899 Other long term (current) drug therapy | CPT/HCPCS: 99212 ==

== ENCOUNTER 2025-07-10 21:28 | Emergency (ER) | payer OTHER, SELFPAY ==
--- NOTE | 2025-07-10 | ECG_ITS ---
Test Reason : cp,wheezing Blood Pressure : */* mmHG Vent. Rate : 97 BPM Atrial Rate : 97 BPM P-R Int : 144 ms QRS Dur : 96 ms QT Int : 360 ms P-R-T Axes : 51 6 35 degrees QTcB Int : 457 ms Normal sinus rhythm Normal ECG When compared with ECG of 25-Apr-2025 06:22, No significant change was found Referred By: Generic ED Physician Electronically Signed By: KENDALL LUCERO MD
--- NOTE | ~2025-07-10 | XR_ITS ---
CLINICAL HISTORY: shortness of breath, chest pain, cough 2 view chest x-ray Comparison: CR - XR CHEST 2V - 04/25/25 07:25 EDT Findings: The lungs are clear. Heart size is normal. No acute fracture. IMPRESSION: 1. No acute findings. This document has been electronically signed by: Tommy Sanchez MD on 07/10/2025 22:24:27
[2025-07-10 21:42] VITALS: BP 137/70; PULSE 107; RESP 18; TEMP 37.2; O2SAT 94; BMI 30.9
[2025-07-10 22:12] LABS: Hematocrit 39.6 % (42.0-52.0); Hemoglobin 13.2 g/dl (14.0-18.0); Imm Gran Abs Auto 0.03 X10*3/uL (0.00-0.03); Imm Gran Pct Auto 0.3 % (0.0-0.4); Lymphocytes Absolute Auto 1.6 X10*3/uL (1.2-4.9); MANUAL DIFF FLAG NO; Mean Corpuscular HGB Conc 33.3 g/dl (31.0-36.0); Mean Corpuscular Hemoglobin 28.8 pg (27.0-33.0); Mean Corpuscular Volume 86.5 fL (80.0-98.0); NRBC Abs Auto 0.000 X10*3/uL (0.0-0.012); NRBC Pct Auto 0.0 /100WBC (0.0-0.2); Platelet Count 232 X10*3/uL (160-400); Red Blood Count 4.58 X10*6/uL (4.60-5.80); White Blood Count 11.8 X10*3/uL (4.8-10.8)
[2025-07-10 22:26] LABS: Alanine Aminotransferase 20 U/L (0-40); Albumin Level 4.4 g/dL (3.5-5.0); Alkaline Phosphatase 90 U/L (39-117); Anion Gap 14 (12-20); Aspartate Amino Transferase 19 U/L (5-37); Blood Urea Nitrogen 21 mg/dL (9-16); Calcium 8.8 mg/dL (8.4-10.2); Carbon Dioxide 21 mmol/L (22-29); Chloride 104 mmol/L (96-108); Creatinine Clr Calc Pharmacy 83.9; Estimated Glomerular Filt Rate > 60; Magnesium 1.5 mg/dL (1.6-2.6); Potassium 3.9 mmol/L (3.3-5.1); Sodium 135 mmol/L (135-145); Total Protein 7.5 g/dL (6.5-8.0)
[2025-07-10 22:33] LABS: NT Pro B Type Natriuretic Pept 63.8 pg/mL (<300)
[2025-07-10 22:34] LABS: Troponin-I High Sensitivity < 2.7 ng/L (<3.5-35.0)
[2025-07-10 22:49] LABS: Resp Syncy Virus RNA Qual PCR NEGATIVE (Negative); SARS COV2 PCR INHOUSE NEGATIVE (Negative)
[2025-07-10 23:42] VITALS: BP 130/76; PULSE 88; RESP 20; TEMP 36.7; O2SAT 94
--- OUTSIDE RECORDS SUMMARY | 2025-07-10 23:59 | XMS_ITS | Encounter Summary ---
Author Organization [employer] Address 75 [facility] 7t [place] [address] Care Team Providers Care Director Of Global Talent Name Role Phone Chun Porras MD Primary Care Provide r Lynsey Madison PharmD Unavailable [phone] Reason for Visit * Reason Comments Med Refill Encounter Details Date Type Department Care Team ([facility] st Contact Info) Description 11/14/2023 Refill [facility] MEDICINE 230 [place] [address] Chun Porras MD 230 [place] [address] Chronic midline low back pain without sciatica [...] Care Team (Late st Contact Info) Description 08/13/2025 10:30 AM EST Clinical Support [facility] MEDICINE [address] [place] [address] Maritza Mejia RN 505 [place] [address] documented as of this encounter Goals Goal [...] of this encounter Care Teams Director Of Global Talent Relationship Specialty Start Date End Date Chun Porras MD [address] [place] [address] PCP - General Internal Medicine 05/26/14 Lynsey Madison PharmD [address] [place] [address] Pharmacist Internal Medicine 09/26/23 documented as of this encounter
--- OUTSIDE RECORDS SUMMARY | 2025-07-10 23:59 | XMS_ITS | Encounter Summary ---
Author Organization [employer] Address 75 [facility] 7t [place] [address] Care Team Providers Care Hood Fitter Name Role Phone Chun Porras MD Primary Care Provide r Lynsey Madison PharmD Unavailable [phone] Reason for Visit * Reason Comments Med Refill Encounter Details Date Type Department Care Team (Late st Contact Info) Description 10/18/2023 Refill [facility] MEDICINE 230 [place] [address] Chun Porras MD 230 [place] [address] Essential hypertension Social History Tobacco Use Types [...] Description 08/13/2025 10:30 AM EST Clinical Support [facility] MEDICINE 230 [place] [address] Maritza Mejia RN 505 [place] [address] documented as of this encounter Goals Goal [...] documented as of this encounter Care Teams Hood Fitter Relationship Specialty Start Date End Date Chun Porras MD [address] [place] [address] PCP - General Internal Medicine 05/26/14 Lynsey Madison PharmD [address] [place] [address] Pharmacist Internal Medicine 09/26/23 documented as of this encounter
--- OUTSIDE RECORDS SUMMARY | 2025-07-10 23:59 | XMS_ITS | Data Portability ---
Author Organization [employer] [facility] Address [address] [place] [address] Care Team Providers Care Slot Supervisor Name Role Phone HIM DAVIN OTHER Assessment Encounter Date Assessment Date Assessment LastModified by Organization Details LastModified Time 10/04/2024 10/04/2024 As noted, we were called to see this patient regarding concerns of HTN. Evaluation in the field was performed by my director business colleague, as noted above, I provided real-time [...] ED. I called in an expect at [facility]. Impression: Chest pain, shortness of breath, hypertension. Plan: ED Disposition: We discussed the situation and I recommended referral to the emergency department. This was based on chest pain. [facility] 10/04/2024 13:48:24 Plan of Treatment Reminders Order Date Submit Date Provider Last Modified By Organization Details Last Modified Time Details Appointments None recorded. Lab None recorded. Referral None recorded. Procedures None recorded. Surgeries None recorded. Imaging electrocard iogram 2024 025 WILLI [facility], [address] [place] [address], [phone] 15:46:07 Medication Orders aspirin 81 mg chewable tablet [email or web address] [facility], [address] [place], [place], [id number], 13:48:03 Patient TargetsNo targets recorded. Patient InstructionsNo instructions recorded. Reason for Referral None Reported. Results Created Date Observation Date Name Description Value Unit Range Abnormal Flag Note LastModifiedBy Organization Detail LastModifiedTime 10/05/1910/04/2024 kenneth carrascogr am No observ ation record ed. [email or web address] [address], [phone] 10/04/2024 17:13:49 Result Notes None recorded. Medical [...] Details Last Updated DateTime 5 76 /min 02433.6 4 g 97 % 98.3 [degF] 16 [...] ICD10 Code Diagnosis IMO Codes Diagnosis Note [id number] Diogo Otto MD Main - [address] [phone] 10/04/2024 13:20:53 10/05/2024 14:15:36 Chest pain 46108011 R07.9 Health Concerns Section Related Observation LastModified by Organization Detai ls LastModified Time None Recorded Concern Status LastModified by Organization Details LastModified Time None Recorded Advance Directives Directive None Recorded Payers Insurance Date Sequence Insurance Name Policy Number Policy Rashid Covered Member ID Rashid Member ID Guarantor Name 10/04/2024 1 [facility] - DOS ON OR AFTER 2022 - DUAL ELIGIBLE - ASSISTED OPTIONS AND ONE CARE (MEDICARE REPLACEMENT/ADV ANTAGE - HMO) Francisco J Garcia [id number] Francisco J Garcia Notes Date Note Type [...] 10:20 Allergies Reviewed at 10/04/2024 10:20 Comments: Studio Engineer verified the Pt.'s name//address and phone number. [...] feeling anxious about same- Denies confusion - Physician Credentialing Specialist provider in place. Collection Systems Consultant Organization Information for Alice Gilmore Business Legal Name: [employer]. Address: [address] [place] [address], Die Repair: Trae Cotter MD CLIA No.: [id number] Collection Systems Consultant POC Test Results from Alice Gilmore EKG (13:32:45) EKG test performed. Attachments uploaded as part of this test result can be found under Documents section. .................. .................. .................. .................. .................. .................. .................. ............... Collection Systems Consultant Note From Alice Gilmore: [facility] makes pt contact. He answers the door and invites [facility] inside his small apartment. He is ambulating w/ a cane and moving about unencumbered. He sits on the sofa w/o pain or discomfort. Pt is not in acute distress. He is not tripoding, no stridor or sonorous respirations are noted. No facial droop, one-sided weakness, or slurred speech are observed and he is not bleeding anywhere. Pt speaks limited broken Greenlandic, so collaborative teacher services are utilized. Pt endorses GALLARDO, CP, [...] is denying recent illness, fevers/chills, or n/v/d. [facility] obtains vital signs and pt is assessed. Lung sounds are clear, cp is not reproducible w/ palpation or compression of the chest wall and abdomen is soft and nontender w/ no guarding, distension, or pulsating masses noted. [facility] does not appreciate any swelling to the LEs at this time. A 12-lead EKG is obtained. [facility] contacts [facility] and discusses the above and [facility] and [facility] agree pt should be evaluated in the ER for cardiac enzymes. [facility] speaks to pt through the collaborative teacher and expresses concerns. Pt is amendable to transport to [facility]. [facility] administers 324mg baby aspirin PO and instructs pt to chew and swallow. Pt is transported by [facility]. [facility] is clear. Report completed by JAMES Gilmore [id number]. [facility] Medication Orders: aspirin 81 mg chewable tablet: Administered .................. .................. .................. .................. .................. .................. .................. ............... [facility] Consulted: Diogo Otto .................. .................. .................. .................. .................. .................. .................. ............... Disposition: Fulfilled Diogo Otto MD [address] [place] [address],[address], [place], [address], STEF - YESSY BARAJAS 10/04/2024 14:53:25
--- OUTSIDE RECORDS SUMMARY | 2025-07-10 23:59 | XMS_ITS | Encounter Summary ---
Author Organization [employer] Address [address] [facility] [address] [place] [address] Care Team Providers Care Radar Engineer Name Role Phone Chun Porras MD Primary Care Provide r Lynsey Madison PharmD Unavailable [phone] Reason for Visit * Reason Comments Med Refill Encounter Details Date Type Department Care Team ([facility] Contact Info) Description 07/20/2022 Refill [facility] [address] [place] [address] Chun Porras MD [address] [place] [address] Chronic midline low back pain without sciatica [...] Department Care Team (Late Contact Info) Description 08/13/2025 10:30 AM EST Clinical Support [facility] [address] [place] [address] Maritza Mejia, SANDRA [address] [place] [address] documented as of this encounter Visit Diagnoses Diagnosis Chronic midline low back pain without sciatica documented in this encounter Additional Health Concerns Assessment Noted Time PHQ-9 Depression Total Score: 3 07/06/20 22 11:00 AM EST documented as of this encounter Care Teams Radar Engineer Relationship Specialty Start Date End Date Chun Porras MD [address] [place] [address] PCP - General Internal Medicine 05/26/14 Lynsey Madison PharmD [address] [place] [address] Pharmacist Internal Medicine 09/26/23 documented as of this encounter
--- OUTSIDE RECORDS SUMMARY | 2025-07-10 23:59 | XMS_ITS | Patient Health Record ---
Author Organization [facility] enter Address [address] [place] [address] Care Team Providers Care Liner Inserter Name Role Phone Monique Reyes Primary Care [...] Date Coverage End Date [employer] [address] [place], [place] [id number] Francisco J Romeo Self - patient is the insured
--- OUTSIDE RECORDS SUMMARY | 2025-07-10 23:59 | XMS_ITS | Encounter Summary ---
Author Organization [employer] Address [address] [facility] [address] [place] [address] Care Team Providers Care Sports Complex Attendant Name Role Phone Chun Porras MD Primary Care Provide r Lynsey Madison PharmD Unavailable [phone] Reason for Visit * Reason Onset Date Comments Med Refill 03/22/2023 Encounter Details Date Type Department Care Team (Late st Contact Info) Description 03/14/2023 Refill [facility] [address] [place] [address] Chun Porras MD [address] [place] [address] Chronic midline low back pain without sciatica [...] medication. He can be contact any time. Turkmen Speaker * Telephone Encounter - Arlette Phipps [...] Description 08/13/2025 10:30 AM EST Clinical Support [facility] [address] [place] [address] Maritza Mejia, SANDRA [address] [place] [address] documented as of this encounter Visit Diagnoses Diagnosis Chronic midline low back pain without sciatica documented in this encounter Additional Health Concerns Assessment Noted Time PHQ-9 Depression Total Score: 3 07/06/20 22 11:00 AM EST documented as of this encounter Care Teams Sports Complex Attendant Relationship Specialty Start Date End Date Chun Porras MD [address] [place] [address] PCP - General Internal Medicine 05/26/14 Lynsey Madison PharmD [address] [place] [address] Pharmacist Internal Medicine 09/26/23 documented as of this encounter
--- OUTSIDE RECORDS SUMMARY | 2025-07-10 23:59 | XMS_ITS | Encounter Summary ---
Author Organization [employer] Address [address] [facility] [address] [place] [address] Care Team Providers Care Mailing Clerk Name Role Phone Chun Porras MD Primary Care Provide r Lynsey Madison PharmD Unavailable [phone] Reason for Visit * Reason Comments Med Refill Encounter Details Date Type Department Care Team ([facility] st Contact Info) Description 09/29/2023 Refill [facility] [address] [place] [address] Chun Porras MD [address] [place] [address] Type 2 diabetes mellitus without complication, unspecified whether senior care insulin use ([facility]) Social History Tobacco Use Types [...] Description 08/13/2025 10:30 AM EST Clinical Support [facility] [address] [place] [address] Mairtza Mejia RN [address] [place] [address] documented as of this encounter Goals Goal Patient Goal Type Associated Problems Recent Progress Patient-Stated? 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
--- OUTSIDE RECORDS SUMMARY | 2025-07-10 23:59 | XMS_ITS | Clinical Summary ---
Author Organization [employer] Address [address] [facility] [facility] [address] [place] [address] Care Team Providers Care Certified Medication Technician Name Role Phone Chun Porras MD Primary Care Provide r Lynsey Madison PharmD Unavailable [phone] Allergies No known active allergies Medications * [...] diabetes mellitus without complication, unspecified whether termite helper insulin use TEST BLOOD SUGAR TWICE DAILY [...] diabetes mellitus without complication, unspecified whether termite helper insulin use TEST BLOOD SUGAR TWICE DAILY 100 strip 11 025 Active cetirizine (ZyrTEC) 10 MG tablet TAKE 1 TABLET BY MOUTH EVERY DAY 30 tablet 5 5 9:38 AM EST 025 Active metoprolol tartrate (Lopressor) 50 [...] without complication, unspecified whether longterm insulin use TAKE 1 TABLET BY MOUTH [...] without complication, unspecified whether longterm insulin use TAKE 2 TABLETS BY MOUTH ONCE DAILY IN THE MORNING and TAKE 1 TABLET BY MOUTH AT BEDTIME 270 tablet 1 Active traMADol (Ultram) 50 MG tabletIndications :Chronic midline low back pain without sciatica TAKE 1 TABLET BY MOUTH EVERY 8 HOURS NEEDED FOR SEVERE PAIN 84 tablet Active Viagra 100 MG tabletIndications :Erectile dysfunction, [...] DAILY NEEDED. 10 tablet 025 2024 Discontinued sildenafil (Viagra) 100 [...] a second opinion Will refer to our [facility] Derm clinic Intermittent chest pain 03/07/2023 Assessment [...] AM EDT): Patient previously seen at our [facility] by Dr Praveen Wagoner with a [...] EDT): Patient previously seen here at our [facility] by Dr Praveen Wagoner with a [...] EDT): Patient previously seen here at our [facility] by Dr Praveen Wagoner with a [...] by Ирина SWENSON and was referred to [employer] Dr Meyer for Pulmonary clearance. Pt was [...] (Updated 08/22/2023) - Patient transferred medications from [facility] to [facility] and was not pleased with results. He [...] Eye Exam Plan: - Referral sent for [facility] Optometry - Continue with current therapy and [...] Milder degenerative changes at remaining levels. [facility] gave him a steroid injection in [...] to be under the care of [facility], last seen last 06/20/2023 Back in [...] Milder degenerative changes at remaining levels. [facility] gave him a steroid injection in [...] to be under the care of [facility], last seen last 06/20/2023 Back in [...] Milder degenerative changes at remaining levels. [facility] gave him a steroid injection back [...] to be under the care of [facility], last seen last 03/09/2019 Back in [...] Milder degenerative changes at remaining levels. [facility] gave him one last Tramadol prescription [...] to be under the care of [facility], last seen last 03/09/2019 Back in [...] tells me he was referref by [facility]. I asked him to find out so I can request records [facility] gave him one last Tramadol prescription [...] in the past. Admitted to [facility] from 12/18-06/2014 because of spontaneous right pneumothorax. Treated with chest tube, and had bronchoscopy with right parietal pleurectomy, multiple wedge resections of blebs of right upper and middle lobes. kellen 1 antitrypsin was normal Pt was being followed by pulmonology at [facility], he now tells me the inserter promotional item left and they did not assign him [...] in the past. Admitted to [facility] from 12/18-06/2014 because of spontaneous right pneumothorax. Treated with chest tube, and had bronchoscopy with right parietal pleurectomy, multiple wedge resections of blebs of right upper and middle lobes. kellen 1 antitrypsin was normal Pt was being followed by pulmonology at [facility], he now tells me the inserter promotional item left and they did not assign him [...] in the past. Admitted to [facility] from 12/18-06/2014 because of spontaneous right pneumothorax. Treated with chest tube, and had bronchoscopy with right parietal pleurectomy, multiple wedge resections of blebs of right upper and middle lobes. kellen 1 antitrypsin was normal Pt was being followed by pulmonology at [facility], he now tells me the inserter promotional item left and they did not assign him [...] in the past. Admitted to [facility] from 12/18-06/2014 because of spontaneous right pneumothorax. Treated with chest tube, and had bronchoscopy with right parietal pleurectomy, multiple wedge resections of blebs of right upper and middle lobes. kellen 1 antitrypsin was normal Pt was being followed by pulmonology at [facility], he now tells me the inserter promotional item left and they did not assign him [...] in the past. Admitted to [facility] from 12/18-06/2014 because of spontaneous right pneumothorax. Treated with chest tube, and had bronchoscopy with right parietal pleurectomy, multiple wedge resections of blebs of right upper and middle lobes. kellen 1 antitrypsin was normal Pt was being followed by pulmonology at [facility], he now tells me the inserter promotional item left and they did not assign him [...] in the past. Admitted to [facility] from 12/18-06/2014 because of spontaneous right pneumothorax. Treated with chest tube, and had bronchoscopy with right parietal pleurectomy, multiple wedge resections of blebs of right upper and middle lobes. kellen 1 antitrypsin was normal Pt was being followed by pulmonology at [facility], he now tells me the inserter promotional item left and they did not assign him [...] with moderate depression. Under the care of [facility]. Currently on a regimen of: Clonidine 0.1 mg po qhs Pt denies Suicidal ideation at the moment. Patient denies any suicidal ideation or thoughts, Patient has crisis numbers and knows to use them if needed. Assessment & Plan (11/20/2022 1:22 PM EDT): Pt with moderate depression. Under the care of [facility]. Currently on a regimen of: Clonidine 0.1 mg po qhs Pt denies Suicidal ideation at the moment. Patient denies any suicidal ideation or thoughts, Patient has crisis numbers and knows to use them if needed. Encounters Date Type Department Care Team Description 07/10/2025 Orders Only GENERIC EXTERNAL DATA DEPARTMENT Provider, Generic External Data 07/07/2025 Telephone [facility] [address] [place] [address] Chun Porras MD Prior Auth DME 06/29/2025 Refill [facility] [address] [place] [address] Sylvie Farley MD Erectile dysfunction, unspecified erectile dysfunction type 06/14/2025 Refill [facility] [address] [place] [address] Chun Porras MD Erectile dysfunction, unspecified erectile dysfunction type; Chronic midline low back pain without sciatica 2025 Telephone [facility] [address] [place] [address] Chun Porras MD Med Refill 05/14/2025 Refill [facility] [address] [place] [place] [address] Chun Porras MD Chronic midline low back pain without sciatica; Erectile dysfunction, unspecified erectile dysfunction type 05/07/2025 10:00 AM EDT Clinical Support [facility] [address] [place] [address] Maritza Mejia RN Chronic midline low back pain without sciatica (Primary Dx) 05/07/2025 Travel 04/25/2025 Orders Only GENERIC EXTERNAL DATA DEPARTMENT Provider, Generic External Data 04/15/2025 Refill [facility] [address] [place] [address] Chun Porras MD Erectile dysfunction, unspecified erectile dysfunction type 04/14/2025 Refill [facility] [address] [place] [address] Chun Porras MD Erectile dysfunction, unspecified erectile dysfunction type; Chronic midline low back pain without sciatica from Last 3 Months Immunizations Immunization Administration [...] Description 08/13/2025 10:30 AM EST Clinical Support [facility] [address] [place] [address] Maritza Mejia, SANDRA [address] [place], [place] [phone] Health Maintenance Due Date Last Done Comments [...] blood pressure task No Maritza Mejia RN Help patients manage their type 2 [...] Care Plan Weekly blood pressure task No Mariela Worthy Weekly blood pressure task Care Plan Weekly blood pressure task No Mariela Worthy Patient has chronic kidney disease Care Plan Patient has chronic kidney disease No Mariela Worthy Patient has chronic kidney disease Care Plan Patient has chronic kidney disease No Mariela Worthy Weekly blood pressure task Care Plan Weekly blood pressure task No Ricardo Meyer Weekly blood pressure task Care Plan Weekly blood pressure task No Ricardo Meyer Patient has chronic kidney disease Care Plan Patient has chronic kidney disease No Ricardo Meyer Patient has chronic kidney disease Care Plan Patient has chronic kidney disease No Ricardo Meyer Procedures Procedure Name Priority Date/Time Associated Diagnosis Comments XR CHEST 2 VIEWS Routine 07/10/2025 10:2 4 PM EST HIGH SENSITIVITY TROPONIN I Routine 07/10/2025 10:04 PM EST NT-PROBNP Routine 07/10/2025 10:04 PM EST MAGNESIUM Routine 07/10/2025 10:04 PM EST COMPREHENSIVE METABOLIC PANEL Routine 07/10/2025 10:04 PM EST CBC WITH AUTO DIFFERENTIAL Routine 07/10/2025 10:04 PM EST SARS COV2/INFLUENZA A/B AND RSV RNA QL NAAT Routine 07/10/2025 10:04 PM EST POCT LORENA-14 URINE DRUG SCREEN Routine 05/07/2025 9:41 AM EDT Chronic midline low back pain without sciatica XR CHEST 2 VIEWS Routine 04/25/2025 8:18 AM EDT D DIMER HIGH SENSITIVITY Routine 04/25/2025 7:25 AM EDT ALBUMIN, RANDOM URINE W/CREATININE Routine 02/23/2025 12:59 PM EDT Type 2 diabetes mellitus without complication, without long-term current use of insulin (CMS/HCC) POCT GLYCATED HEMOGLOBIN, TOTAL Routine 02/18/2025 9:26 [...] Recently Relevant to Health Maintenance Results * XR Chest 2 Views (07/10/2025 10:24 PM EST) Only the most recent of2 resultswithin the time period is included. Anatomical Region Laterality Modality Chest Radiographic Brenna ging 07/10/2025 10:2 4 PM EST Narrative 07/10/2025 10:25 PM EST [address] [address] XRay Report Signed Patient: Francisco J Romeo MR#: [id number] : 1960 Acct:[id number] Age/Sex: 65 / M ADM Date: 07/10/25 Loc: HO.ED Attending Dr: Ordering Physician: Generic ED Physician Date of Service: 07/10/25 Procedure(s): XR chest 2V Accession Number(s): [id number] cc: Chun Michel MD; Generic ED Physician Reason for Exam: shortness of breath, chest pain, cough CLINICAL HISTORY: shortness of breath, chest pain, cough 2 view chest x-ray Comparison: CR - XR CHEST 2V - 04/25/25 07:25 EDT Findings: The lungs are clear. Heart size is normal. No acute fracture. IMPRESSION: 1. No acute findings. This document has been electronically signed by: Tommy Sanchez MD on 07/10/2025 22:24:27 Dictated By: Tommy Sanchez MD Signed By: <Electronically signed by Tommy Sanchez MD in OV> 07/10/252223 DD/ 23 TD/TT: 07/10/252223 Investigator Claims: Procedure Note Donotuseinterpreter, Image - 07/10/[address] [address] XRay Report Signed Patient: Emma RomeoR#: M [id number] : 1960cct:[id number] Age/Sex: 65 / MADM Date: 07/10/25 Loc: HO.ED Attending Dr: Ordering Physician: Generic ED Physician Date of Service: 07/10/25 Procedure(s): XR chest 2V Accession Number(s): [id number] cc: Chun Michel MD; Generic ED Physician Reason for Exam: shortness of breath, chest pain, cough CLINICAL HISTORY: shortness of breath, chest pain, cough 2 view chest x-ray Comparison: CR - XR CHEST 2V - 10/12/25 07:25 EDT Findings: The lungs are clear. Heart size is normal. No acute fracture. IMPRESSION: 1. No acute findings. This document has been electronically signed by: Tommy Sanchez MD on 07/10/2025 22:24:27 Dictated By: Tommy Sanchez MD Signed By: <Electronically signed by Tommy Sanchez MD in OV> 07/10/252223 DD/ 23 TD/TT: 07/10/252223 Investigator Claims: [facility] External Provider IMG XR PROCEDURES Final Result * High Sensitivity Troponin I (07/10/2025 10:04 PM EST) Pathologist [facility] TROPONIN I HIGH SENSITIVITY <2.7 <3.5 - 35.0 ng/L [facility] Comment:The Wheeler high sens itivity Troponin-I results should beused in conjunction with other diagnostic information suchas ECG, clinical observations and information, and patientsymptoms to aid in the diagnosis of NM. 07/10/2025 10:0 4 PM EST 07/10/2025 10:09 PM EST Generic External Data Provider LAB BLOOD ORDERAB LES Final Result [facility] [address] [place] [phone] * SARS-CoV-2 RNA, Influenza A/B, and RSV RNA, Ql NAAT (07/10/2025 10:04 PM EST) Pathologist [facility] Influenza A PCR NEGATIVE Negative [facility] Influenza B PCR NEGATIVE Negative [facility] Resp Syncy Virus RNA Qual PCR NEGATIVE Negative [facility] SARS COV2 PCR NEGATIVE Negative [facility] Comment:All test results mus t be correlated with clinical findings.Negative results do not preclude SARS-CoV2, influenza Avirus, influenza B virus and/or RSV infectionand should not be used as the sole basis for treatment orother patient management decisions. Negative results must becombined with clinical observations, patient history, andepidemiological information.This test has not been evaluated for monitoring treatment ofinfection.This test has been authorized by the FDA under an EmergencyUse Authorization (EUA) for use by authorized laboratories.Testing performed on the [employer] GeneXpert utilizingreal-time RT-PCR.All SARS CoV2 and positive influenza A/B results arereported to [facility]. 07/10/2025 10:0 4 PM EST 07/10/2025 10:09 PM EST Generic External Data Provider LAB MICROBIOLOGY - GENERAL ORDERABLES Final Result Performing Organization Address [facility] Co de Phone Number [facility] [address] [place] [phone] * NT-proBNP (07/10/2025 10:04 PM EST) NT-proBNP 63.8 <300 pg/mL [facility] Comment:Reference Range:Age Group (years) NT-proBNP (pg/ml) InterpretationAll <300 Negative: HF unlikelyFor patients presenting to the ED with clinical suspicion ofnew onset or worsening HF, see below:18 to <50 >299.9 to <450.0 Grayzone: [id number] to 75 >299.9 to <900.0 other causes of>75 >299.9 to <1800.0 NT-proBNP cirweakkv85 to <50 >449.9 Positive: HF [id number] >899.9>75 >1799.9Note: Elevated NT-proBNP levels should be interpreted inthe context of other clinical information. 07/10/2025 10:0 4 PM EST 07/10/2025 10:09 PM EST Generic External Data Provider LAB BLOOD ORDERAB LES Final Result Performing Organization Address [facility] Co de Phone Number [facility] [address] [place] [phone] * (ABNORMAL) CBC auto differential (07/10/2025 10:04 PM EST) White Blood Count 11.8(H) 4.8 - 10.8 X10*3/uL [facility] Red Blood Count 4.58(L) 4.60 - 5.80 X10*6/uL [facility] Hemoglobin 13.2(L) 14.0 - 18.0 g/dl [facility] Hematocrit 39.6(L) 42.0 - 52.0 % [facility] Mean Corpuscular Volume 86.5 80.0 - 98.0 fL [facility] Mean Corpuscular Hemoglobin 28.8 27.0 - 33.0 pg [facility] Mean Corpuscular HGB Conc 33.3 31.0 - 36.0 g/dl [facility] Red Cell Distribution Width 12.7 11.0 - 16.0 % [facility] Platelet Count 232 160 - 400 X10*3/uL [facility] Mean Platelet Volume 9.7 9.4 - 12.4 fL [facility] Neutrophils Percent Auto 74.5(H) 45 - 73 % [facility] Imm Gran Pct Auto 0.3 0.0 - 0.4 % [facility] Lymphocytes Percent Auto 13.6(L) 20 - 40 % [facility] Monocytes Percent Auto 11.1(H) 2 - 11 % [facility] Eosinophils Percent Auto 0.2 0 - 4 % [facility] Basophils Percent Auto 0.3 0 - 2 % [facility] NRBC Pct Auto 0.0 0.0 - 0.2 /100WBC [facility] Neutrophils Absolute Auto 8.8(H) 2.0 - 8.3 x10*3/uL [facility] Imm Gran Abs Auto 0.03 0.00 - 0.03 X10*3/uL [facility] Lymphocytes Absolute Auto 1.6 1.2 - 4.9 X10*3/uL [facility] Monocytes Absolute Auto 1.3(H) 0.1 - 1.2 X10*3/uL [facility] Eosinophils Absolute Auto 0.0 0.0 - 0.4 X10*3/uL [facility] Basophils Absolute Auto 0.0 0.0 - 0.2 X10*3/uL [facility] NRBC Abs Auto 0.000 0.0 - 0.012 X10*3/uL [facility] 07/10/2025 10:0 4 PM EST 07/10/2025 10:09 PM EST Generic External Data Provider LAB BLOOD ORDERAB LES Final Result Performing Organization Address [facility] Co de Phone Number [facility] [address] [place] [phone] * (ABNORMAL) Magnesium (07/10/2025 10:04 PM EST) Pathologist [facility] Magnesium 1.5(L) 1.6 - 2.6 mg/dL [facility] 07/10/2025 10:0 4 PM EST 07/10/2025 10:09 PM EST [employer] External Data Provider LAB BLOOD ORDERAB LES Final Result Performing Organization Address [facility] de Phone Number [facility] [address] [place] [phone] * (ABNORMAL) Comprehensive Metabolic Panel (07/10/2025 10:04 PM EST) Pathologist [facility] Sodium 135 135 - 145 mmol/L [facility] Potassium 3.9 3.3 - 5.1 mmol/L [facility] Chloride 104 96 - 108 mmol/L [facility] Carbon Dioxide 21(L) 22 - 29 mmol/L [facility] Anion Gap 14 12 - 20 [facility] Urea Nitrogen (BUN) 21(H) 9 - 16 mg/dL [facility] Creatinine, Serum 1.00 0.5 - 1.4 mg/dL [facility] Creatinine Clr Calc Pharmacy 83.9 [facility] Comment:eGFR (calculated fro m the MDRD study equation) and eCrCl(calculated from the Cockcroft-Gault equation) are based ondifferent parameters and may not yield comparable results.If eCrCl result is absurd, please check patient'sheight/weight. Estimated Glomerular Filt Rate >60 [facility] Comment:Chronic Kidney Disea se: Estimated GFR < 60 mL/min/1.61j6Mctbnd Kidney Disease: Estimated GFR < 15 mL/min/1.73m2 Glucose 137(H) 60 - 115 mg/dL [facility] Calcium 8.8 8.4 - 10.2 mg/dL [facility] Bilirubin, Total 0.6 0.0 - 1.0 mg/dL [facility] Aspartate Amino Transferase 19 5 - 37 U/L [facility] Alanine Aminotransferase 20 0 - 40 U/L [facility] Total Protein 7.5 6.5 - 8.0 g/dL [facility] Albumin Level 4.4 3.5 - 5.0 g/dL [facility] Alkaline Phosphatase 90 39 - 117 U/L [facility] 07/10/2025 10:0 4 PM EST 07/10/2025 10:09 PM EST us Generic External Data Provider LAB BLOOD ORDERAB LES Final Result [facility] [address] [place] [phone] * (ABNORMAL) POCT LORENA-14 Urine Drug Screen [...] - 05/07/2025 9:41 AM EDT .UTOX cup Lot#[id number] Exp. 04/20/26 Internal Pass Control Chun Mckinley MD POINT OF CARE TEST EN TER/EDIT ORDERABLES Final Result * D Dimer High Sensitivity (04/25/2025 7:25 AM EDT) D Dimer High Sensitivity 151 NG/ML [facility] Comment:D-DIMER HS REFERENCE RANGENote: [...] ORDERAB LES Final Result Performing Organization Address [facility]/ZIP Co de Phone Number [facility] [address] [place] [address] [phone] * Albumin, Random Urine W/Creatinine (02/23/2025 12:59 PM EDT) Creatinine, Urine 72.62 mg/dL [facility] Microalbumin Urine <5.0 mg/L [facility] Microalbum Creatinine Ratio Ur TNP <30 ug/mg cr [facility] Comment:Unable to calculate albumin/creatinine ratio due to lowmicroalbumin or creatinine result. Urine (Urine, Random) 02/23/2025 12:59 PM EDT 02/23/2025 2:17 PM EDT Chun Mckinley MD LAB URINE ORDERABLES Final Result Performing Organization Address City/[facility]/ZIP Co de Phone Number [facility] [address] [place] [phone] * (ABNORMAL) POCT HGB A1C (02/18/2025 9:26 AM EDT) Pathologist [facility] Hemoglobin A1C 6.3(A) 4.0 - 5.7 % QC Media Lot # [id number] Lot# Expiration Date Blood 02/18/2025 9:26 AM EDT Chun Mckinley MD POINT OF CARE TEST EN TER/EDIT ORDERABLES Final Result * Hepatitis C Antibody with Reflex to HCV, RNA, Quantitative, Real-Time PCR (12/20/2022 10:56 AM EDT) [facility] Hepatitis C Antibody NON-REACT FABRICIO NON-REACT FABRICIO [facility] Index 0.13 <1.00 [facility] Comment: HCV antibody was non-reactive. There is no laboratory evidence of HCV infection. In most cases, no further action is required. However, if recent HCV exposure is suspected, a test for HCV RNA (test code 83865) is suggested. For additional information please refer to http://education.[employer]/faq/NLS60x1 (This link is being provided for informational/ educational purposes only.) Blood Venous blood specimen / Unknown 12/20/2022 10:56 AM EDT 12/20/2022 10:56 AM EDT Narrative [facility] - 12/21/2022 5:38 AM EDT FASTING:YES FASTING: YES Chun Mckinley MD LAB BLOOD ORDERABLES Final Result [facility] [address] [place] [address] [facility] [address] [place] [address] * Lipid Panel, Standard (11/09/2022 11:21 AM EDT) [facility] Cholesterol, Total 138 <200 mg/dL [facility] HDL Cholesterol 54 > OR = 40 mg/dL [facility] Triglycerides 131 <150 mg/dL [facility] [place] [facility] LDL Cholesterol 63 mg/dL (calc) [facility] Comment: Reference range: <100 Desirable range <100 mg/dL for primary prevention; <70 mg/dL for patients with CHD or diabetic patients with > or = 2 CHD risk factors. LDL-C is now calculated using the Trever calculation, which is a validated novel method providing better accuracy than the Friedewald equation in the estimation of LDL-C. Manav ERICKSON et al. DIONICIO. 2013;310(19): 7497-5866 (http://education.[employer]/faq/EDS111) Chol/HDLC Ratio 2.6 <5.0 (calc) [facility] Non-HDL Cholesterol 84 <130 mg/dL (calc) [facility] Comment: For patients with diabetes plus 1 major ASCVD risk factor, treating to a non-HDL-C goal of <100 mg/dL (LDL-C of <70 mg/dL) is considered a therapeutic option. Blood Venous blood specimen / Unknown 11/09/2022 11:21 AM EDT 11/09/2022 11:21 AM EDT Narrative [facility] - 11/10/2022 8:06 AM EDT FASTING:NO FASTING: NO Colleen Lou [employer] LAB BLOOD ORDERABLES Final Resu lt [facility] [address] [place] [address] [facility] [address] [place] [address] * Hm Colonoscopy (07/27/2020) Colonoscopy Normal Normal [...] 06/15/2025 Patient has chronic kidney disease 06/15/2025 Weekly blood pressure task 07/02/2025 Weekly blood pressure task 07/02/2025 Patient has chronic kidney disease 07/02/2025 Patient has chronic kidney disease 07/02/2025 Weekly blood pressure task 07/07/2025 Weekly blood pressure task 07/07/2025 Patient has chronic kidney disease 07/07/2025 Patient has chronic kidney disease 07/07/2025 Insurance [facility] OPTIONS (O D-SNP) Care Teams Certified Medication Technician Relationship Specialty Start Date End Date Chun Porras MD [address] [place] [address] PCP - General Internal Medicine 05/26/14 Lynsey Madison, Sherwin [address] [place] [address] Pharmacist Internal Medicine 09/26/23
--- OUTSIDE RECORDS SUMMARY | 2025-07-10 23:59 | XMS_ITS | Encounter Summary ---
Author Organization [employer] Address 75 [facility] 7t [place] [address] Care Team Providers Care Engineer And Geologist Name Role Phone Chun Porras MD Primary Care Provide r Lynsey Madison PharmD Unavailable [phone] Reason for Visit * Reason Comments Med Refill Encounter Details Date Type Department Care Team ([facility] st Contact Info) Description 06/21/2023 Refill [facility] [address] [place] [address] Chun Porras MD [address] [place] [address] Type 2 diabetes mellitus without complication, unspecified whether usp insulin use ([facility]); Mixed hyperlipidemia Social History Tobacco Use [...] Description 08/13/2025 10:30 AM EST Clinical Support [facility] [address] [place] [address] Maritza Mejia RN [address] [place] [address] documented as of this encounter Visit Diagnoses Diagnosis Type 2 diabetes mellitus without complication, unspecified whether superintendent container terminal insulin use Mixed hyperlipidemia documented in this encounter Additional Health Concerns Assessment Noted Time PHQ-9 Depression Total Score: 3 07/06/20 22 11:00 AM EST documented as of this encounter Care Teams Engineer And Geologist Relationship Specialty Start Date End Date Chun Porras MD [address] [place] [address] PCP - General Internal Medicine 05/26/14 Lynsey Madison PharmD [address] [place] [address] Pharmacist Internal Medicine 09/26/23 documented as of this encounter
--- OUTSIDE RECORDS SUMMARY | 2025-07-10 23:59 | XMS_ITS | Encounter Summary ---
Author Organization [employer] Address 75 [facility] 7t [place] [address] Care Team Providers Care Classroom Paraprofessional Name Role Phone Chun Porras MD Primary Care Provide r Lynsey Madison PharmD Unavailable [phone] Reason for Visit * Reason Comments Med Refill Encounter Details Date Type Department Care Team ([facility] st Contact Info) Description 02/17/2024 Refill [facility] [address] [place], [place] [phone] Chun Porras MD [address] [place] [address] Chronic midline low back pain without sciatica [...] Description 08/13/2025 10:30 AM EST Clinical Support [facility] MED[facility]INE [address] [place] [address] Maritza Mejia, SANDRA 505 [place] [address] documented as of this encounter Goals Goal [...] documented as of this encounter Care Teams Classroom Paraprofessional Relationship Specialty Start Date End Date Chun Porras MD [address] [place] [address] PCP - General Internal Medicine 05/26/14 Lynsey Madison PharmD [address] [place] [address] Pharmacist Internal Medicine 09/26/23 documented as of this encounter
--- OUTSIDE RECORDS SUMMARY | 2025-07-10 23:59 | XMS_ITS | Clinical Summary ---
Author Organization [facility] Address [address] [address] Care Team Providers Care Map Plotter Name Role Phone Chun Brennan MD Primary [...] to complete this topic Insurance [address] [place] [phone] [facility] [address] [place] [address] [address] [place] [address] Care Teams Map Plotter Relationship Specialty Start Date End Date Chun Brennan MD PCP - General 07/25/20
--- OUTSIDE RECORDS SUMMARY | 2025-07-10 23:59 | XMS_ITS | Encounter Summary ---
Author Organization [employer] Address 75 [facility] 7t [place] [address] Care Team Providers Care Stripper Apprentice Name Role Phone Chun Porras MD Primary Care Provide r Lynsey Madison PharmD Unavailable [phone] Reason for Visit * Reason Comments Med Refill Encounter Details Date Type Department Care Team ([facility] st Contact Info) Description 04/28/2024 Refill [facility] [address] [place] [address] Lynsey Madison, PharmD [address] [place] [address] Type 2 diabetes mellitus without complication, unspecified whether fci insulin use ([facility]) Social History Tobacco Use Types Packs/Day [...] Description 08/13/2025 10:30 AM EST Clinical Support [facility] [address] [place] [address] Maritza Mejia, RN [address] [place] [address] documented as of this encounter Goals Goal Patient Goal Type Associated Problems Recent Progress Patient-Stated? Author Blood Pressure < 140/90 Blood Pressure Essential hypertension 106/68(2024 9:16 AM EDT) No Lynsey Madison, PharmJose documented as of this encounter Visit Diagnoses Diagnosis Type 2 diabetes mellitus without complication, unspecified whether fci insulin use documented in this encounter Additional Health Concerns Assessment Noted Time PHQ-9 Depression Total Score: 1 11/12/19 24 11:09 AM EDT documented as of this encounter Care Teams Stripper Apprentice Relationship Specialty Start Date End Date Chun Porras MD [address] [place] [address] PCP - General Internal Medicine 05/26/14 Lynsey Madison, MichaelD [address] [place] [address] Pharmacist Internal Medicine 09/26/23 documented as of this encounter
--- OUTSIDE RECORDS SUMMARY | 2025-07-10 23:59 | XMS_ITS | Encounter Summary ---
Author Organization [employer] Address 75 [facility] 7t [place] [address] Care Team Providers Care Washing Machine Striper Name Role Phone Chun Porras MD Primary Care Provide r Lynsey Madison PharmD Unavailable [phone] Encounter Details Date Type Department Care Team (Late st Contact Info) Description 07/10/2025 Orders Only GENERIC EXTERNAL DATA [...] Description 08/13/2025 10:30 AM EST Clinical Support [facility] MED[facility] [address] [place] [address] Maritza Mejia RN [address] [place] [address] documented as of this encounter Goals Goal Patient Goal Type Associated Problems Recent Progress Patient-Stated? Author Blood Pressure < 140/90 Blood Pressure Essential hypertension 106/68(2024 9:16 AM EDT) No Lynsey Madison, MichaelD Help patients manage their type 2 diabetes [...] has chronic kidney disease No Ricardo Meyer documented as of this encounter Procedures Procedure Name Priority Date/Time Associated Diagnosis Comments XR CHEST 2 VIEWS Routine 07/10/2025 10:2 4 PM EST HIGH SENSITIVITY TROPONIN I Routine 07/10/2025 10:04 PM EST SARS COV2/INFLUENZA A/B AND RSV RNA QL NAAT Routine 07/10/2025 10:04 PM EST NT-PROBNP Routine 07/10/2025 10:04 PM EST CBC WITH AUTO DIFFERENTIAL Routine 07/10/2025 10:04 PM EST MAGNESIUM Routine 07/10/2025 10:04 PM EST COMPREHENSIVE METABOLIC PANEL Routine 07/10/2025 10:04 PM EST documented in this encounter Results * XR Chest 2 Views (07/10/2025 10:24 PM EST) Anatomical Region Laterality Modality Chest Radiographic Brenna ging 07/10/2025 10:2 4 PM EST Narrative 07/10/2025 10:25 PM EST [address] [address] XRay Report Signed Patient: Francisco J Romeo MR#: [id number] : 1960 Acct:[id number] Age/Sex: 65 / M ADM Date: 07/10/25 Loc: .ED Attending Dr: Ordering Physician: Generic ED Physician Date of Service: 07/10/25 Procedure(s): XR chest 2V Accession Number(s): [id number] cc: Chun Michel MD; Generic ED Physician [...] in OV> 07/10/252223 DD/ 23 TD/TT: 07/10/252223 Rn Cardiac Cath: Procedure Note Monserratter, Image - 07/10/2025 [place] [address] XRay Report Signed Patient: Johny Romeo#: M [id number] : 8Acct:[id number] Age/Sex: 65 / MADM Date: 07/10/25 Loc: .ED Attending Dr: Ordering Physician: Generic ED Physician Date of Service: 07/10/25 Procedure(s): XR chest 2V Accession Number(s): [id number] cc: Chun Michel MD; Generic ED Physician [...] in OV> 07/10/252223 DD/ 23 TD/TT: 07/10/252223 Rn Cardiac Cath: [facility] External Provider IMG XR PROCEDURES Final Result * SARS-CoV-2 RNA, Influenza A/B, and RSV RNA, Ql NAAT (07/10/2025 10:04 PM EST) Influenza A PCR NEGATIVE Negative [facility] Influenza B PCR NEGATIVE Negative [facility] Resp Syncy Virus RNA Qual PCR NEGATIVE Negative [facility] SARS COV2 PCR NEGATIVE Negative [facility] Comment:All test results mus t be [...] use by authorized laboratories.Testing performed on the [employer] GeneXpert utilizingreal-time RT-PCR.All SARS CoV2 and positive influenza A/B results arereported to [facility]. 07/10/2025 10:0 4 PM EST 07/10/2025 10:09 PM EST Generic External Data Provider LAB MICROBIOLOGY - GENERAL ORDERABLES Final Result [facility] [address] [place] [phone] * High Sensitivity Troponin I (07/10/2025 10:04 PM EST) TROPONIN I HIGH SENSITIVITY <2.7 <3.5 - 35.0 ng/L [facility] Comment:The Wheeler high sens itivity Troponin-I results should beused in conjunction with other diagnostic information suchas ECG, clinical observations and information, and patientsymptoms to aid in the diagnosis of DE. 07/10/2025 10:0 4 PM EST 07/10/2025 10:09 PM EST us Generic External Data Provider LAB BLOOD ORDERAB LES Final Result Performing Organization Address [facility]/ZIP Co de Phone Number [facility] [address] [place] [phone] * NT-proBNP (07/10/2025 10:04 PM EST) NT-proBNP 63.8 <300 pg/mL [facility] Comment:Reference Range:Age Group (years) NT-proBNP (pg/ml) InterpretationAll <300 Negative: HF unlikelyFor patients presenting to the ED with clinical suspicion ofnew onset or worsening HF, see below:18 to <50 >299.9 to <450.0 Grayzone: [id number] to 75 >299.9 to <900.0 other causes of>75 >299.9 to <1800.0 NT-proBNP [id number] to <50 >449.9 Positive: HF -92 >899.9>75 >1799.9Note: Elevated NT-proBNP levels should be interpreted inthe context of other clinical information. 07/10/2025 10:0 4 PM EST 07/10/2025 10:09 PM EST us Generic External Data Provider LAB BLOOD ORDERAB LES Final Result Performing Organization Address [facility] Co de Phone Number [facility] [address] [place] [phone] * (ABNORMAL) Magnesium (07/10/2025 10:04 PM EST) Magnesium 1.5(L) 1.6 - 2.6 mg/dL [facility] 07/10/2025 10:0 4 PM EST 07/10/2025 10:09 PM EST us Generic External Data Provider LAB BLOOD ORDERAB LES Final Result Performing Organization Address [facility] Co de Phone Number [facility] [address] [place] [phone] * (ABNORMAL) Comprehensive Metabolic Panel (07/10/2025 10:04 PM EST) Sodium 135 135 - 145 mmol/L [facility] Potassium 3.9 3.3 - 5.1 mmol/L [facility] Chloride 104 96 - 108 mmol/L [facility] Carbon Dioxide 21(L) 22 - 29 mmol/L [facility] Anion Gap 14 12 - 20 [facility] Urea Nitrogen (BUN) 21(H) 9 - 16 mg/dL [facility] Creatinine, Serum 1.00 0.5 - 1.4 mg/dL [facility] Creatinine Clr Calc Pharmacy 83.9 [facility] Comment:eGFR (calculated fro m the MDRD study equation) and eCrCl(calculated from the Cockcroft-Gault equation) are based ondifferent parameters and may not yield comparable results.If eCrCl result is absurd, please check patient'sheight/weight. Estimated Glomerular Filt Rate >60 [facility] Comment:Chronic Kidney Disea se: Estimated GFR < 60 mL/min/1.81g4Otrtwc Kidney Disease: Estimated GFR < 15 mL/min/1.73m2 Glucose 137(H) 60 - 115 mg/dL [facility] Calcium 8.8 8.4 - 10.2 mg/dL [facility] Bilirubin, Total 0.6 0.0 - 1.0 mg/dL [facility] Aspartate Amino Transferase 19 5 - 37 U/L [facility] Alanine Aminotransferase 20 0 - 40 U/L [facility] Total Protein 7.5 6.5 - 8.0 g/dL [facility] Albumin Level 4.4 3.5 - 5.0 g/dL [facility] Alkaline Phosphatase 90 39 - 117 U/L [facility] 07/10/2025 10:0 4 PM EST 07/10/2025 10:09 PM EST us Generic External Data Provider LAB BLOOD ORDERAB LES Final Result [facility] [address] [place] [phone] * (ABNORMAL) CBC auto differential (07/10/2025 10:04 PM EST) White Blood Count 11.8(H) 4.8 - 10.8 X10*3/uL [facility] Red Blood Count 4.58(L) 4.60 - 5.80 X10*6/uL [facility] Hemoglobin 13.2(L) 14.0 - 18.0 g/dl [facility] Hematocrit 39.6(L) 42.0 - 52.0 % [facility] Mean Corpuscular Volume 86.5 80.0 - 98.0 fL [facility] Mean Corpuscular Hemoglobin 28.8 27.0 - 33.0 pg [facility] Mean Corpuscular HGB Conc 33.3 31.0 - 36.0 g/dl [facility] Red Cell Distribution Width 12.7 11.0 - 16.0 % [facility] Platelet Count 232 160 - 400 X10*3/uL [facility] Mean Platelet Volume 9.7 9.4 - 12.4 fL [facility] Neutrophils Percent Auto 74.5(H) 45 - 73 % [facility] Imm Gran Pct Auto 0.3 0.0 - 0.4 % [facility] Lymphocytes Percent Auto 13.6(L) 20 - 40 % [facility] Monocytes Percent Auto 11.1(H) 2 - 11 % [facility] Eosinophils Percent Auto 0.2 0 - 4 % [facility] Basophils Percent Auto 0.3 0 - 2 % [facility] NRBC Pct Auto 0.0 0.0 - 0.2 /100WBC [facility] Neutrophils Absolute Auto 8.8(H) 2.0 - 8.3 x10*3/uL [facility] Imm Gran Abs Auto 0.03 0.00 - 0.03 X10*3/uL [facility] Lymphocytes Absolute Auto 1.6 1.2 - 4.9 X10*3/uL [facility] Monocytes Absolute Auto 1.3(H) 0.1 - 1.2 X10*3/uL [facility] Eosinophils Absolute Auto 0.0 0.0 - 0.4 X10*3/uL [facility] Basophils Absolute Auto 0.0 0.0 - 0.2 X10*3/uL [facility] NRBC Abs Auto 0.000 0.0 - 0.012 X10*3/uL [facility] 07/10/2025 10:0 4 PM EST 07/10/2025 10:09 PM EST us Generic External Data Provider LAB BLOOD ORDERAB LES Final Result Performing Organization Address City/State/[facility] Co de Phone Number [facility] [address] [place] [address] [phone] documented in this encounter Visit Diagnoses Not on filedocumented in this encounter Additional Health Concerns Active Problems Noted Date [...] 07/07/2025 Patient has chronic kidney disease 07/07/2025 Assessment Noted Time PHQ-9 Depression Total Score: 19 025 1:13 PM EDT documented as of this encounter Care Teams Washing Machine Striper Relationship Specialty Start Date End Date Chun Porras MD [address] [place] [address] PCP - General Internal Medicine 05/26/14 Lynsey Madison, MichaelD [address] [place] [address] Pharmacist Internal Medicine 09/26/23 documented as of this encounter
--- OUTSIDE RECORDS SUMMARY | 2025-07-10 23:59 | XMS_ITS | Encounter Summary ---
Author Organization [employer] Address 75 [facility] 7t [place] [address] Care Team Providers Care Ventilation Worker Name Role Phone Chun Porras MD Primary Care Provide r Lynsey Madison PharmD Unavailable [phone] Reason for Visit * Reason Comments Med Refill Encounter Details Date Type Department Care Team ([facility] st Contact Info) Description 11/14/2023 Refill [facility] [address] [place] [address] Chun Porras MD [address] [place] [address] Chronic midline low back pain without sciatica [...] Description 08/13/2025 10:30 AM EST Clinical Support [facility] [address] [place] [address] Maritza Mejia RN 505 [place] [address] documented as of this encounter Goals Goal [...] documented as of this encounter Care Teams Ventilation Worker Relationship Specialty Start Date End Date Chun Porras MD [address] [place] [address] PCP - General Internal Medicine 05/26/14 Lynsey Madison PharmD [address] [place] [address] Pharmacist Internal Medicine 09/26/23 documented as of this encounter
--- OUTSIDE RECORDS SUMMARY | 2025-07-10 23:59 | XMS_ITS | Encounter Summary ---
Author Organization [employer] Address 75 [facility] 7t [place] [address] Care Team Providers Care Telephonic Nurse Case Manager Name Role Phone Chun Porras MD Primary Care Provide r Lynsey Madison PharmD Unavailable [phone] Reason for Visit * Reason Comments Med Refill Encounter Details Date Type Department Care Team ([facility] st Contact Info) Description 11/12/2024 Refill [facility]INE [address] [place] [address] Chun Porras MD [address] [place] [address] Chronic midline low back pain without sciatica [...] Description 08/13/2025 10:30 AM EST Clinical Support [facility]INE [address] [place] [address] Maritza Mejia RN [address] [place] [address] documented as of this encounter Goals Goal [...] documented as of this encounter Care Teams Telephonic Nurse Case Manager Relationship Specialty Start Date End Date Chun Porras MD [address] [place] [address] PCP - General Internal Medicine 05/26/14 Lynsey Madison, MichaelD [address] [place] [address] Pharmacist Internal Medicine 09/26/23 documented as of this encounter
--- OUTSIDE RECORDS SUMMARY | 2025-07-10 23:59 | XMS_ITS | Encounter Summary ---
Author Organization [employer] Address 75 [facility] 7t [place] [address] Care Team Providers Care Lot Attendant Name Role Phone Chun Porras MD Primary Care Provide r Lynsey Madison PharmD Unavailable [phone] Reason for Visit * Reason Comments Med Refill Encounter Details Date Type Department Care Team ([facility] st Contact Info) Description 07/04/2023 Refill [facility] MEDICINE [address] [place] [address] Chun Porras MD [address] [place] [address] Type 2 diabetes mellitus without complication, unspecified whether long-term insulin use ([facility]) Social History Tobacco Use Types [...] Description 08/13/2025 10:30 AM EST Clinical Support [facility]ICINE [address] [place] [address] Maritza Mejia RN [address] [place] [address] documented as of this encounter Visit Diagnoses Diagnosis Type 2 diabetes mellitus without complication, unspecified whether manager terminal insulin use documented in this encounter Additional Health Concerns Assessment Noted Time PHQ-9 Depression Total Score: 3 07/06/20 22 11:00 AM EST documented as of this encounter Care Teams Lot Attendant Relationship Specialty Start Date End Date Chun Porras MD [address] [place] [address] PCP - General Internal Medicine 05/26/14 Lynsey Madison PharmD [address] [place] [address] Pharmacist Internal Medicine 09/26/23 documented as of this encounter
--- OUTSIDE RECORDS SUMMARY | 2025-07-10 23:59 | XMS_ITS | Encounter Summary ---
Author Organization [employer] Address 75 [facility] 7t [place] [address] Care Team Providers Care Movie Theater Usher Name Role Phone Chun Porras MD Primary Care Provide r Lynsey Madison PharmD Unavailable [phone] Reason for Visit * Reason Comments Med Refill Encounter Details Date Type Department Care Team ([facility] st Contact Info) Description 11/12/2024 Refill [facility]INE [address] [place] [address] Chun Porras MD [address] [place] [address] Chronic midline low back pain without sciatica [...] Description 08/13/2025 10:30 AM EST Clinical Support [facility]INE [address] [place] [address] Maritza Mejia RN [address] [place] [address] documented as of this encounter Goals Goal [...] documented as of this encounter Care Teams Movie Theater Usher Relationship Specialty Start Date End Date Chun Porras MD [address] [place] [address] PCP - General Internal Medicine 05/26/14 Lynsey Madison, MichaelD [address] [place] [address] Pharmacist Internal Medicine 09/26/23 documented as of this encounter
--- OUTSIDE RECORDS SUMMARY | 2025-07-10 23:59 | XMS_ITS | Encounter Summary ---
Author Organization [employer] Address 75 [facility] 7t [place] [address] Care Team Providers Care Electrical Instrument Technician Name Role Phone Chun Porras MD Primary Care Provide r Lynsey Madison PharmD Unavailable [phone] Encounter Details Date Type Department Care Team (Late Contact Info) Description 11/14/2022 Abstract [facility] MEDICINE [address] [place] [address] Chun Porras MD [address] [place] [address] Social History Tobacco Use Types Packs/Day Years [...] Description 08/13/2025 10:30 AM EST Clinical Support [facility] [address] [place] [address] Maritza Mejia, SANDRA [address] [place] [address] documented as of this encounter Procedures Procedure [...] documented as of this encounter Care Teams Electrical Instrument Technician Relationship Specialty Start Date End Date Chun Porras MD [address] [place] [address] PCP - General Internal Medicine 05/26/14 Lynsey Madison PharmD [address] [place] [address] Pharmacist Internal Medicine 09/26/23 documented as of this encounter
--- OUTSIDE RECORDS SUMMARY | 2025-07-10 23:59 | XMS_ITS | Encounter Summary ---
Author Organization [employer] Address 75 [facility] 7t [place] [address] Care Team Providers Care Reservations Clerk Name Role Phone Chun Porras MD Primary Care Provide r Lynsey Madison PharmD Unavailable [phone] Reason for Visit * Reason Comments Med Refill Encounter Details Date Type Department Care Team ([facility] st Contact Info) Description 04/21/2023 Refill [facility] [address] [place] [address] Name, MD Cristhian [address] [place] [address] Essential hypertension Social History Tobacco Use Types [...] Description 08/13/2025 10:30 AM EST Clinical Support [facility] MEDICINE [address] [place] [address] Maritza Mejia, SANDRA [address] [place] [address] documented as of this encounter Visit Diagnoses Diagnosis Essential hypertension Unspecified essential hypertension documented in this encounter Additional Health Concerns Assessment Noted Time PHQ-9 Depression Total Score: 3 07/06/20 22 11:00 AM EST documented as of this encounter Care Teams Reservations Clerk Relationship Specialty Start Date End Date Chun Porras MD [address] [place] [address] PCP - General Internal Medicine 05/26/14 Lynsey Madison PharmD [address] [place] [address] Pharmacist Internal Medicine 09/26/23 documented as of this encounter
--- OUTSIDE RECORDS SUMMARY | 2025-07-10 23:59 | XMS_ITS | Encounter Summary ---
Author Organization [employer] Address 75 [facility] 7t [place] [address] Care Team Providers Care Peer Support Specialist Name Role Phone Chun Porras MD Primary Care Provide r Lynsey Madison PharmD Unavailable [phone] Reason for Visit * Reason Comments Med Refill Encounter Details Date Type Department Care Team ([facility] st Contact Info) Description 09/18/2023 Refill [facility] MEDICINE [address] [place] [address] Chun Porras MD 230 [place] [address] Mixed hyperlipidemia Social History Tobacco Use Types [...] Description 08/13/2025 10:30 AM EST Clinical Support [facility]ICINE [address] [place] [address] Maritza Mejia RN [address] [place] [address] documented as of this encounter Goals Goal [...] documented as of this encounter Care Teams Peer Support Specialist Relationship Specialty Start Date End Date Chun Porras MD [address] [place] [address] PCP - General Internal Medicine 05/26/14 Lynsey Madison, PharmD [address] [place] [address] Pharmacist Internal Medicine 09/26/23 documented as of this encounter
--- OUTSIDE RECORDS SUMMARY | 2025-07-10 23:59 | XMS_ITS | Encounter Summary ---
Author Organization [employer] Address [address] [facility] 7t [place] [address] Care Team Providers Care Fire Prevention Captain Name Role Phone Chun Porras MD Primary Care Provide r Lynsey Madison PharmD Unavailable [phone] Reason for Visit * Reason Comments Med Refill Encounter Details Date Type Department Care Team ([facility] st Contact Info) Description 08/22/2023 Refill [facility] [address] [place] [address] Colleen Lou FNP [address] [place] [address] Chronic obstructive pulmonary disease with (acute) exacerbation [...] Description 08/13/2025 10:30 AM EST Clinical Support [facility] [address] [place] [address] Maritza Mejia RN [address] [place] [address] documented as of this encounter Goals Goal [...] documented as of this encounter Care Teams Fire Prevention Captain Relationship Specialty Start Date End Date Chun Porras MD [address] [place] [id number] PCP - General Internal Medicine 05/26/14 Lynsey Madison PharmD [address] [place] [address] Pharmacist Internal Medicine 09/26/23 documented as of this encounter
--- OUTSIDE RECORDS SUMMARY | 2025-07-10 23:59 | XMS_ITS | Encounter Summary ---
Author Organization [employer] Address [address] [facility] 7t [place] [address] Care Team Providers Care Learning And Development Consultant Name Role Phone Chun Porras MD Primary Care Provide r Lynsey Madison PharmD Unavailable [phone] Reason for Visit * Reason Comments Med Refill Encounter Details Date Type Department Care Team ([facility] st Contact Info) Description 04/25/2023 Refill [facility] MED[facility]INE [address] [place] [address] Name, MD Cristhian [address] [place] [address] Essential hypertension Social History Tobacco Use Types [...] Description 08/13/2025 10:30 AM EST Clinical Support [facility] MED[facility]INE [address] [place] [address] Maritza Mejia, SANDRA [address] [place] [address] documented as of this encounter Visit Diagnoses Diagnosis Essential hypertension Unspecified essential hypertension documented in this encounter Additional Health Concerns Assessment Noted Time PHQ-9 Depression Total Score: 3 07/06/20 22 11:00 AM EST documented as of this encounter Care Teams Learning And Development Consultant Relationship Specialty Start Date End Date Chun Porras MD [address] [place] [id number] PCP - General Internal Medicine 05/26/14 Lynsey Madison PharmD [address] [place] [address] Pharmacist Internal Medicine 09/26/23 documented as of this encounter
--- OUTSIDE RECORDS SUMMARY | 2025-07-10 23:59 | XMS_ITS | Encounter Summary ---
Author Organization [employer] Address 75 [facility] 7t [place] [address] Care Team Providers Care Custom Harvester Name Role Phone Chun Porras MD Primary Care Provide r Lynsey Madison PharmD Unavailable [phone] Reason for Visit * Reason Comments Med Refill Encounter Details Date Type Department Care Team ([facility] st Contact Info) Description 04/23/2023 Refill [facility] [address] [place] [address] Chun Porras MD [address] [place] [address] Benign prostatic hyperplasia with lower urinary tract [...] Description 08/13/2025 10:30 AM EST Clinical Support [facility] [address] [place] [address] Maritza Mejia RN [address] [place] [address] documented as of this encounter Visit Diagnoses Diagnosis Benign prostatic hyperplasia with lower urinary tract symptoms documented in this encounter Additional Health Concerns Assessment Noted Time PHQ-9 Depression Total Score: 3 07/06/20 22 11:00 AM EST documented as of this encounter Care Teams Custom Harvester Relationship Specialty Start Date End Date Chun Porras MD [address] [place] [phone] PCP - General Internal Medicine 05/26/14 Lynsey Madison PharmD [address] [place] [address] Pharmacist Internal Medicine 09/26/23 documented as of this encounter
--- OUTSIDE RECORDS SUMMARY | 2025-07-10 23:59 | XMS_ITS | Encounter Summary ---
Author Organization [employer] Address [address] [facility] 7t [place] [address] Care Team Providers Care Quill Skinner Name Role Phone Chun Porras MD Primary Care Provide r Lynsey Madison PharmD Unavailable [phone] Reason for Visit * Reason Onset Date Comments Prior Auth DME 07/07/2025 Encounter Details Date Type Department Care Team ([facility] st Contact Info) Description 07/07/2025 Telephone [facility]INE [address] [place] [address] Chun Porars MD [address] [place] [address] Prior Auth DME Social History Tobacco Use Types Packs/Day Years [...] t he electric, gas, oil or water [employer] threatened to shut off services in your [...] encounter Miscellaneous Notes * Telephone Encounter - Ricardo Meyer - 07/07/2025 10:26 AM EST Tc mame simeon from [facility] DME requesting Washer bed pat Wipes Recliner chair [employer] documented in this encounter Plan of Treatment Upcoming Encounters Date Type Department Care Team (Late st Contact Info) Description 08/13/2025 10:30 AM EST Clinical Support [facility] [address] [place] [address] Maritza Mejia, SANDRA [address] [place], [place] [phone] documented as of this encounter Goals Goal Patient Goal Type Associated Problems Recent Progress Patient-Stated? Author Blood Pressure < 140/90 Blood Pressure Essential hypertension 106/68(2024 9:16 AM EDT) No Lynsey Madison, PharmD Help patients manage their type 2 diabetes [...] Ricardo Meyer documented as of this encounter Visit Diagnoses [...] documented as of this encounter Care Teams Quill Skinner Relationship Specialty Start Date End Date Chun Porras MD [address] [place] [address] PCP - General Internal Medicine 05/26/14 Lynsey Madison, MichaelD [address] [place] [address] Pharmacist Internal Medicine 09/26/23 documented as of this encounter
[2025-07-11 00:13] VITALS: PULSE 92; RESP 10; O2SAT 95
[2025-07-11] MEDS: levalbuterol HCL 2.5 MG, Ipratropium Bromide 0.5 MG INHALE (00:13)
--- NOTE | 2025-07-11 00:24 | PC.NURSE ---
RT at bedside for treatment.
[2025-07-11] MEDS: Magnesium Sulfate/H2O 2 GM/50 ML PIGGYBACK IV (00:42)
[2025-07-11 00:54] VITALS: O2SAT 90
[2025-07-11 01:03] VITALS: BP 99/70; PULSE 108; RESP 20; TEMP 36.8; O2SAT 92
--- NOTE | 2025-07-11 02:29 | ED.GENADULT ---
HPI - General Adult General Chief complaint: Upper Respiratory Symptoms Stated complaint: chest pain/wheezing Time Seen by Provider: 07/10/25 23:40 Source: patient Limitations: language barrier History of Present Illness ED Provider: Michelle Case PA-C HPI narrative: 65-year-old male with a history of COPD/asthma overlap, tobacco abuse, known pulmonary nodules, JACQUI on CPAP, GERD, known Merlos's esophagus, hypertension, hyperlipidemia, diabetes who presents with cough and cold symptoms for 2 days. Associated cough, expelling discolored sputum at times, wheezing, generalized malaise and myalgia. Subjective fevers. No sick contacts with similar symptoms. Related Data Home Medications ?Medication ?Instructions ?Recorded ?Confirmed aspirin 81 mg tablet,delayed 1 tab PO QAM 07/25/20 05/24/25 release atorvastatin 40 mg tablet 1 tab PO BEDTIME 07/25/20 05/24/25 duloxetine 60 mg capsule,delayed 1 cap PO QAM 03/28/21 05/24/25 release amlodipine 10 mg tablet 1 tab PO QAM 09/08/21 05/24/25 metoprolol tartrate 50 mg tablet 1 tab PO 09/08/21 05/24/25 nebulizers 10/26/22 01/20/25 tramadol 50 mg tablet 50 mg PO TID PRN 08/16/23 05/24/25 metformin 500 mg tablet,extended 500 mg PO BID 12/24/23 05/24/25 release 24 hr blood sugar diagnostic (FreeStyle #10 ea 02/06/24 01/20/25 Lite Strips) lancets 33 gauge (TRUEplus Lancets) #100 ea 02/06/24 01/20/25 ramelteon 8 mg tablet 8 mg PO DAILY 02/21/24 05/24/25 gabapentin 300 mg capsule mg PO 05/06/24 05/24/25 doxepin 10 mg capsule 10 mg PO BEDTIME 05/24/25 05/24/25 sildenafil 100 mg tablet (Viagra) 100 mg PO DAILY PRN 05/24/25 05/24/25 Previous Rx's ?Medication ?Instructions ?Recorded ipratropium 0.5 mg-albuterol 3 mg 3 ml inhalation Q4H PRN shortness 06/28/22 (2.5 mg base)/3 mL nebulization of breath or wheezing #90 mL soln lidocaine 5 % topical patch 1 patch topical DAILY #15 ea 08/25/22 (Lidoderm) albuterol sulfate 2.5 mg/3 mL 2.5 mg (3 mL) inhalation Q4H PRN 10/26/24 (0.083 %) solution for nebulization shortness of breath or wheezing 30 days #360 mL cetirizine 10 mg tablet 20 mg (2 x 10 mg) PO DAILY PRN 12/05/24 allergy symptoms #30 tabs hydrocortisone 1 % topical cream 1 appl topical BID PRN itching 12/05/24 #28.35 grams furosemide 20 mg tablet (Lasix) 20 mg PO DAILY #4 tabs 02/04/25 terazosin 5 mg capsule 5 mg PO BEDTIME 90 days #90 caps 03/01/25 montelukast 10 mg tablet 10 mg PO BEDTIME #30 tabs 03/19/25 fluticasone fur. 200 mcg-umeclid 1 inh inhalation DAILY 30 days #60 04/21/25 62.5 mcg-vilant 25 mcg ea inhalat.powder (Trelegy Ellipta) albuterol sulfate 90 mcg/actuation 2 puff inhalation Q4-6H PRN for 05/27/25 aerosol inhaler (Ventolin HFA) wheezing #18 grams omeprazole 20 mg capsule,delayed 20 mg PO DAILY 90 days #90 caps 06/16/25 release simethicone 180 mg capsule (Gas 180 mg PO QID #360 ea 06/16/25 Relief (simethicone)) doxycycline hyclate 100 mg capsule 100 mg PO BID #19 caps 07/11/25 prednisone 20 mg tablet 40 mg (2 x 20 mg) PO DAILY #8 tabs 07/11/25 Allergies Allergy/AdvReac Type Severity Reaction Status Date / Time No Known Allergies (No Known Allergy Verified 07/10/25 21:44 Allergies*) Review of Systems Review of Systems: Yes all other systems are reviewed and are negative Constitutional: Constitutional: Reports fatigue, Reports fever(s) and Reports malaise Cardiovascular: Cardiovascular: Denies chest pain and Reports dyspnea Respiratory: Respiratory: Reports chest congestion, Reports cough, Reports dyspnea and Reports wheezing Gastrointestinal: Gastrointestinal: Denies abdominal pain Musculoskeletal: Musculoskeletal: Reports myalgias Endocrine: Endocrine: Reports fatigue Allergic/Immunologic: Allergic/Immunologic: Reports wheezing PMFSH Past Medical History Attestation statement: The following information was validated with the patient. Medical History (Updated 07/12/25 @ 00:00 by Georgia Trujillo) H. pylori duodenitis Umbilical hernia Erosive gastritis New abnormality on chest x-ray REJI (acute kidney injury) Urgency of micturition Urinary hesitancy Nocturia more than twice per night Benign prostatic hyperplasia with weak urinary stream Epidermal inclusion cyst Atelectasis Fecal incontinence Flank lipoma Asthma-COPD overlap syndrome IBS (irritable bowel syndrome) Diabetes Arthritis Back pain GERD (gastroesophageal reflux disease) Bipolar 1 disorder Anxiety Depression Elevated cholesterol Tension pneumothorax, spontaneous Hypertension Asthma Surgical History History of esophagogastroduodenoscopy (EGD) S/P excision of lipoma (02/20/23) History of excision of mass (12/13/22) Hx of colonoscopy Hx of tracheostomy History of lung surgery Hx of hernia repair Family History Family History Mother Stomach cancer Brother Prostate cancer Brother Prostate cancer Social History Social History Household Members: None Housing: Apartment Do you presently have visiting nurse or other home services: No Alcohol intake: current Alcohol intake frequency: does not drink Alcohol type: beer Patient Tobacco Use Status: Never used Tobacco Smoked in Last 30 Days: Yes e-Cigarette/Vaping Use: Never Used Second Hand Smoke Exposure: No Substance Use Type: Marijuana Advance Directives: Yes Advance Directives on File: Yes Advance Directives Date on File: 03/28/21 service: No Current occupational status: unemployed Physical Exam ED Vital Signs: Vital Signs - 24 hr 07/10/25 21:42 07/10/25 23:42 07/11/25 00:13 Temperature 99.0 F 98.1 F Pulse Rate 107 H 88 92 Respiratory Rate 18 20 10 L Blood Pressure 137/70 130/76 Pulse Oximetry 94 94 Oxygen Delivery Method Room Air Room Air 07/11/25 00:54 07/11/25 01:03 Temperature 98.3 F Pulse Rate 108 H Respiratory Rate 20 Blood Pressure 99/70 Pulse Oximetry 90 L 92 Oxygen Delivery Method Room Air Room Air BMI result Body Mass Index 30.9 Const Other: Alert Orientation/consciousness: patient oriented x3 Resp Other: Nonlabored respirations, expiratory wheezes noted posterior llanes, active cough at times Cardio Other: Has been normal peripheral perfusion Skin Other: Warm dry no rash Neuro General: patient oriented x3, gait normal, no focal motor deficits and CN's II-XI intact bilaterally Psych Other: Cooperative Medications Administered Discontinued Medications Generic Name Dose Route Start Last Admin Trade Name Vinq PRN Reason Stop Dose Admin Levalbuterol HCl 2.5 mg/ 0 mg 07/11/25 00:10 07/11/25 00:13 Ipratropium [place] 0.5 mg INHALE 07/11/25 00:11 8.5 dose ONCE ONE Administration Magnesium Sulfate 2 gm in 50 mls @ 150 mls/hr 07/10/25 23:53 07/11/25 01:03 Magnesium Sulfate/H2o IV 07/11/25 00:12 Infused ONCE ONE Infusion Doxycycline Hyclate 100 mg/ 250 mls @ 166.67 mls/hr 07/11/25 00:54 07/11/25 02:33 Sodium Chloride IV 07/11/25 02:23 Infused ONCE ONE Infusion Methylprednisolone Sodium Succinate 60 mg 07/10/25 23:53 07/11/25 00:42 Methylprednisolone Sod Succ 125 Mg/2 Ml Vial IVPUSH 07/10/25 23:54 60 mg ONCE ONE Administration Medical Decision Making Medical Decision Making MDM Narrative: 65-year-old male with a history of COPD/asthma overlap, tobacco abuse, known pulmonary nodules, JACQUI on CPAP, GERD, known Merlos's esophagus, hypertension, hyperlipidemia, diabetes who presents with cough and cold symptoms for 2 days. Associated cough, expelling discolored sputum at times, wheezing, generalized malaise and myalgia. Subjective fevers. No sick contacts with similar symptoms. Problem: COPD, asthma overlap, tobacco abuse, diabetes History: Per patient I have considered the following differential diagnoses: Viral syndrome, pneumonia, bronchitis, asthma/COPD exacerbation Plan: Patient here with the underlying viral syndrome, we will be treating for bronchitis. Given active tobacco use we will cover with an antibiotic. He is stable he is not hypoxic, he will not require admission. Screening labs including viral panel and chest x-ray already obtained, there was no pneumonia, viral panel negative. We will give an updraft steroid magnesium and against start doxycycline. I have independently reviewed the following tests: Labs: Slight leukocytosis, not anemic, no electrolyte abnormality, viral panel negative Chest x-ray:Findings: The lungs are clear. Heart size is normal. No acute fracture. IMPRESSION: 1. No acute findings. Differential Diagnosis Differential Diagnoses: The differential diagnosis associated with the presentation includes See [facility] Admission/Observation Consideration of admission/observation: Escalation of care including admission/observation considered Not applicable Lab Data [facility] Lab Attestation statement: I reviewed the patient's lab results. 07/10/25 22:04 07/10/25 22:04 Labs: Lab Results 07/10/25 Range/Units 22:04 WBC 11.8 H (4.8-10.8) X10*3/uL RBC 4.58 L (4.60-5.80) X10*6/uL Hgb 13.2 L (14.0-18.0) g/dl Hct 39.6 L (42.0-52.0) % MCV 86.5 (80.0-98.0) fL MCH 28.8 (27.0-33.0) pg MCHC 33.3 (31.0-36.0) g/dl RDW 12.7 (11.0-16.0) % Plt Count 232 (160-400) X10*3/uL MPV 9.7 (9.4-12.4) fL Immature Gran % (Auto) 0.3 (0.0-0.4) % Neut % (Auto) 74.5 H (45-73) % Lymph % (Auto) 13.6 L (20-40) % Ida % (Auto) 11.1 H (2-11) % Eos % (Auto) 0.2 (0-4) % Baso % (Auto) 0.3 (0-2) % Lymph # (Auto) 1.6 (1.2-4.9) X10*3/uL Ida # (Auto) 1.3 H (0.1-1.2) X10*3/uL Eos # (Auto) 0.0 (0.0-0.4) X10*3/uL Baso # (Auto) 0.0 (0.0-0.2) X10*3/uL Abs Immat Gran (auto) 0.03 (0.00-0.03) X10*3/uL Absolute Neuts (auto) 8.8 H (2.0-8.3) x10*3/uL Absolute Nucleated RBC 0.000 (0.0-0.012) X10*3/uL Nucleated RBC % (auto) 0.0 (0.0-0.2) /100WBC Sodium 135 (135-145) mmol/L Potassium 3.9 (3.3-5.1) mmol/L Chloride 104 (96-108) mmol/L Carbon Dioxide 21 L (22-29) mmol/L Anion Gap 14 (12-20) BUN 21 H (9-16) mg/dL Creatinine 1.00 (0.5-1.4) mg/dL Estim Creat Clear Calc 83.9 Estimated GFR > 60 Random Glucose 137 H (60-115) mg/dL Calcium 8.8 D (8.4-10.2) mg/dL Magnesium 1.5 L (1.6-2.6) mg/dL Total Bilirubin 0.6 (0.0-1.0) mg/dL AST 19 (5-37) U/L ALT 20 (0-40) U/L Alkaline Phosphatase 90 (39-117) U/L Troponin I High Sens < 2.7 (<3.5-35.0) ng/L NT-Pro-B Natriuret Pep 63.8 (<300) pg/mL Total Protein 7.5 (6.5-8.0) g/dL Albumin 4.4 (3.5-5.0) g/dL Influenza Type A (PCR) NEGATIVE (Negative) Influenza Type B (PCR) NEGATIVE (Negative) RSV RNA Qual (PCR) NEGATIVE (Negative) SARS-CoV-2 RNA (RT-PCR) NEGATIVE (Negative) Radiology Impression Discussion of test interpretation with radiology: I have reviewed the radiologist's reading. Discharge Plan Discharge Clinical Impression: Bronchitis Patient Disposition: Home, Self-Care Instructions: Acute Bronchitis (ED) Additional Instructions: You are being treated for bronchitis. See home care instructions. The chest x-ray is clear you do not have pneumonia. You were tested for RSV, COVID and influenza, the viral panel was negative. Use your inhalers as needed. Take the steroid as directed, take the doxycycline as directed, be sure to complete all of the steroid and the antibiotic. Follow up with your primary care provider as needed. Prescriptions: New doxycycline hyclate 100 mg capsule 100 mg PO BID Qty: 19 0RF prednisone 20 mg tablet 40 mg PO DAILY Qty: 8 0RF No Action albuterol sulfate 2.5 mg /3 mL (0.083 %) solution for nebulization 2.5 mg inhalation Q4H PRN (Reason: shortness of breath or wheezing) 30 Days Qty: 360 7RF terazosin 5 mg capsule 5 mg PO BEDTIME 90 Days Qty: 90 3RF montelukast 10 mg tablet 10 mg PO BEDTIME Qty: 30 4RF Trelegy Ellipta 200-62.5-25 mcg blister with device 1 inh inhalation DAILY 30 Days Qty: 60 7RF albuterol sulfate [Ventolin HFA] 90 mcg/actuation HFA aerosol inhaler 2 puff inhalation Q4-6H PRN (Reason: for wheezing) Qty: 18 2RF atorvastatin 40 mg tablet 1 tab PO BEDTIME aspirin 81 mg tablet,delayed release (DR/EC) 1 tab PO QAM duloxetine 60 mg capsule,delayed release(DR/EC) 1 cap PO QAM amlodipine 10 mg tablet 1 tab PO QAM metoprolol tartrate 50 mg tablet 1 tab PO ipratropium-albuterol 0.5 mg-3 mg(2.5 mg base)/3 mL solution for nebulization 3 ml inhalation Q4H PRN (Reason: shortness of breath or wheezing) Qty: 90 0RF Rx Instructions: until breathing returns to target peak flow/parameters lidocaine [Lidoderm] 5 % adhesive patch,medicated 1 patch topical DAILY Qty: 15 0RF Rx Instructions: leave on most painful area for up to 12 hrs furosemide [Lasix] 20 mg tablet 20 mg PO DAILY Qty: 4 0RF cetirizine 10 mg tablet 20 mg PO DAILY PRN (Reason: allergy symptoms) Qty: 30 0RF hydrocortisone 1 % cream 1 appl topical BID PRN (Reason: itching) Qty: 28.35 0RF Rx Instructions: apply to face (DME) nebulizers Misc See Rx Instructions .Route Rx Instructions: As directed metformin 500 mg tablet extended release 24 hr 500 mg PO BID Rx Instructions: 1000 mg in the morning and 500 mg at night ramelteon 8 mg tablet 8 mg PO DAILY gabapentin 300 mg capsule PO tramadol 50 mg tablet 50 mg PO TID PRN (DME) FreeStyle Lite Strips Strip See Rx Instructions .ROUTE BID Qty: 10 Rx Instructions: As directed (DME) lancets [TRUEplus Lancets] 33 gauge misc See Rx Instructions .ROUTE .MEDSUPPLY Qty: 100 Rx Instructions: As directed doxepin 10 mg capsule 10 mg PO BEDTIME sildenafil [Viagra] 100 mg tablet 100 mg PO DAILY PRN simethicone [Gas Relief (simethicone)] 180 mg capsule 180 mg PO QID Qty: 360 1RF omeprazole 20 mg capsule,delayed release(DR/EC) 20 mg PO DAILY 90 Days Qty: 90 1RF Interventions: ED Discharge Assessment Last Done: 07/11/25 03:00 Discharge Date/Time: 07/11/25 03:01 Print Language: Bhutanese
[2025-07-11 03:00] VITALS: BP 99/70; PULSE 108; RESP 20; TEMP 36.8; O2SAT 92
== END 2025-07-11 03:01 | disposition home or self-care (01) ==
PROVIDERS: Emergency Provider Emergency Medicine; PCP Internal Medicine
DX: J40 Bronchitis, not specified as acute or chronic (principal); R05.9 Cough, unspecified; I10 Essential (primary) hypertension; E78.00 Pure hypercholesterolemia, unspecified; K21.9 Gastro-esophageal reflux disease without esophagitis; Z79.82 Long term (current) use of aspirin; Z79.02 Long term (current) use of antithrombotics/antiplatelets; Z79.899 Other long term (current) drug therapy; Z03.818 Encounter for observation for suspected exposure to other biological agents ruled out
CPT/HCPCS: 36415; 71046; 80053; 83735; 83880; 84484; 85025; 87637; 93005; 94640; 96365; 96367; 96375; 99284; 99285; J1271; J2919; J3475

== ENCOUNTER → 2025-07-10 21:36 | Outpatient (BNV) | payer OTHER, SELFPAY | PROVIDERS: Emergency Provider Emergency Medicine; PCP Internal Medicine; Visit Provider Internal Medicine Cardiovascular Disease | DX: R07.9 Chest pain, unspecified (principal); R06.2 Wheezing | CPT/HCPCS: 93010 ==

== ENCOUNTER → 2025-07-10 22:16 | Outpatient (BNV) | payer OTHER, SELFPAY | PROVIDERS: PCP Internal Medicine; Visit Provider Radiology Diagnostic Radiology | DX: R07.9 Chest pain, unspecified (principal); R06.02 Shortness of breath; R05.9 Cough, unspecified | CPT/HCPCS: 71046 ==